=== PATIENT | female | born 1955 | race Caucasian/White ===

== ENCOUNTER 2023-04-18 12:02 | Emergency (ER) | payer MEDICARE, SELFPAY ==
[2023-04-18 12:17] VITALS: BP 145/74; PULSE 78; RESP 16; TEMP 36.9; O2SAT 98; BMI 29.2
--- NOTE | 2023-04-18 14:20 | PC.NURSE ---
red area to skin to pt's foot, band aid in place
--- NOTE | 2023-04-18 14:24 | XR_ITS ---
The [address] [address] Patient Name: DUYEN ANAYA MRN: [id number] date: 1955 Sex: F Assigned Patient Location: ER Current Patient Location: Accession/Order Number: [id number] Exam Date: 04/18/2023 14:30 Report Date: 04/18/2023 14:42 At the request of: RAMAKRISHNA GRAY Procedure: XR foot RT min 3V EXAM: XR foot RT min 3V HISTORY: puain COMPARISON: None. FINDINGS: 3 radiographs of the right foot were obtained. No acute fracture or dislocation. Moderate degenerative changes to the right foot. Small Achilles heel spur. Os peroneum. XR/XR foot RT min 3V IMPRESSION: No acute fracture or dislocation. Electronically authenticated by: SAUL MUNGUIA Date: 04/18/2023 14:42
--- NOTE | 2023-04-18 14:58 | ED_ITS ---
Documented by User: Shalini Gray 04/18/23 15:06 HPI - General Adult General Chief complaint: Skin/Abscess/Foreign Body Stated complaint: RT FOOT PAIN Time Seen by Provider: 04/18/23 14:23 Source: patient Mode of arrival: Wheelchair History of Present Illness HPI narrative: 67-year-old female presents here with a chief complaint of right foot injury. She states she accidentally kicked her foot against a piece of furniture earlier this week and now has some redness to the base of the great toe. She states she is diabetic. Concern for infection. Small area erythema noted the wound is dry. Patient has small circular area of induration measuring 1 x 2 cm. It appears he had a blister that opened the patient denies any known blister to this area. Related Data Previous Rx's Medication Instructions Recorded cephalexin 500 mg capsule 500 mg PO BID 10 days #20 caps 04/18/23 Allergies Allergy/AdvReac Type Severity Reaction Status Date / Time No Known Drug Allergies Allergy Verified 04/18/23 12:17 Review of Systems ROS Narrative All Systems are negative except as noted/marked.All systems reviewed and otherwise negative Exam Narrative Exam Narrative: Nurses note and vital signs reviewed and patient is not hypoxic. General: The patient appears well and in no apparent distress. Patient is resting comfortably on cart. Skin: Warm, dry, no pallor noted. 1x 2 cam area induration to the right great toe base consistent with abrasion that is healing, no drainage or discharge Head: Normocephalic, atraumatic Musculoskeletal:Small abrasion to the right great toe The patient has no evidence of calf tenderness, no pitting edema, symmetrical pulses noted bilaterally Neurological: A&O x4, normal speech Psychiatric: Cooperative Constitutional Vital Signs, click to edit/add: Last Vital Signs Temp 98.4 F 04/18/23 12:17 Pulse 78 04/18/23 12:17 Resp 16 04/18/23 12:17 BP 145/74 H 04/18/23 12:17 Pulse Ox 98 04/18/23 12:17 O2 Del Method Room Air 04/18/23 14:20 Course Vital Signs Vital signs: Vital Signs Temperature 98.4 F 04/18/23 12:17 Pulse Rate 78 04/18/23 12:17 Respiratory Rate 16 04/18/23 12:17 Blood Pressure 145/74 H 04/18/23 12:17 Pulse Oximetry 98 04/18/23 12:17 Oxygen Delivery Method Room Air 04/18/23 12:17 Temperature 98.4 F 04/18/23 12:17 Pulse Rate 78 04/18/23 12:17 Respiratory Rate 16 04/18/23 12:17 Blood Pressure 145/74 H 04/18/23 12:17 Pulse Oximetry 98 04/18/23 12:17 Oxygen Delivery Method Room Air 04/18/23 14:20 Medical Decision Making MDM Narrative Medical decision making narrative: She has small abrasion she wanted to be evaluated for possible infection. She is a diabetic. She was placed on Keflex. The area was cleaned here in emergency room dressing appliedd. X-ray shows no acute bony involvement the base of the great toe. Patient's told to keep covered and dry during the day and open to air at night. Medical Records Medical records reviewed: Yes I reviewed the patient's medical records Imaging Data Patient Name: DUYEN ANAYA MRN: [facility]:[id number] date: 1955 Sex: F Assigned Patient Location: ER Current Patient Location: ER Accession/Order Number: [id number] Exam Date: 04/18/2023 14:30 Report Date: 04/18/2023 14:42 At the request of: SHALINI GRAY Procedure: XR foot RT min 3V EXAM: XR foot RT min 3V HISTORY: puain COMPARISON: None. FINDINGS: 3 radiographs of the right foot were obtained. No acute fracture or dislocation. Moderate degenerative changes to the right foot. Small Achilles heel spur. Os peroneum. IMPRESSION: No acute fracture or dislocation.: Radiologist's impression: Patient Name: DUYEN ANAYA MRN: [facility]:[id number] date: 1955 Sex: F Assigned Patient Location: ER Current Patient Location: ER Accession/Order Number: [id number] Exam Date: 04/18/2023 14:30 Report Date: 04/18/2023 14:42 At the request of: SHALINI GRAY Procedure: XR foot RT min 3V EXAM: XR foot RT min 3V HISTORY: puain COMPARISON: None. FINDINGS: 3 radiographs of the right foot were obtained. No acute fracture or dislocation. Moderate degenerative changes to the right foot. Small Achilles heel spur. Os peroneum. IMPRESSION: No acute fracture or dislocation. Discharge Plan Discharge Chief Complaint: Skin/Abscess/Foreign Body Clinical Impression: Abrasion of foot Patient Disposition: Home, Self-Care Time of Disposition Decision: 14:59 Condition: Good Prescriptions / Home Meds: New cephalexin 500 mg capsule 500 mg PO BID 10 Days Qty: 20 0RF Instructions: Abrasion (ED) Stand Alone Forms: Portal Instructions Referrals: Yessica Sheffield [Primary Care Provider] - 1 week Discharge Date/Time: 04/18/23 15:10 Documented by User: Gia Ayala MD 04/18/23 18:12 HPI - General Adult General Chief complaint: Skin/Abscess/Foreign Body Stated complaint: RT FOOT PAIN Time Seen by Provider: 04/18/23 14:23 Related Data Previous Rx's Medication Instructions Recorded cephalexin 500 mg capsule 500 mg PO BID 10 days #20 caps 04/18/23 Allergies Allergy/AdvReac Type Severity Reaction Status Date / Time No Known Drug Allergies Allergy Verified 04/18/23 12:17 Exam Constitutional Vital Signs, click to edit/add: Last Vital Signs Temp 98.4 F 04/18/23 12:17 Pulse 78 04/18/23 12:17 Resp 16 04/18/23 12:17 BP 145/74 H 04/18/23 12:17 Pulse Ox 98 04/18/23 12:17 O2 Del Method Room Air 04/18/23 14:20 Course Vital Signs Vital signs: Vital Signs Temperature 98.4 F 04/18/23 12:17 Pulse Rate 78 04/18/23 12:17 Respiratory Rate 16 04/18/23 12:17 Blood Pressure 145/74 H 04/18/23 12:17 Pulse Oximetry 98 04/18/23 12:17 Oxygen Delivery Method Room Air 04/18/23 12:17 Temperature 98.4 F 04/18/23 12:17 Pulse Rate 78 04/18/23 12:17 Respiratory Rate 16 04/18/23 12:17 Blood Pressure 145/74 H 04/18/23 12:17 Pulse Oximetry 98 04/18/23 12:17 Oxygen Delivery Method Room Air 04/18/23 14:20 Medical Decision Making MDM Narrative Medical decision making narrative: She has small abrasion she wanted to be evaluated for possible infection. She is a diabetic. She was placed on Keflex. The area was cleaned here in emergency room dressing appliedd. X-ray shows no acute bony involvement the base of the great toe. Patient's told to keep covered and dry during the day and open to air at night. Attending physician attestation I have reviewed the mid-level documentation, agree with the documentation, medical decision making and treatment plan as outlined by the mid-level provider. Discharge Plan Discharge Chief Complaint: Skin/Abscess/Foreign Body Clinical Impression: Abrasion of foot Patient Disposition: Home, Self-Care Time of Disposition Decision: 14:59 Condition: Good Prescriptions / Home Meds: New cephalexin 500 mg capsule 500 mg PO BID 10 Days Qty: 20 0RF Instructions: Abrasion (ED) Stand Alone Forms: Portal Instructions Referrals: Yessica Sheffield [Primary Care Provider] - 1 week Discharge Date/Time: 04/18/23 15:10
== END 2023-04-18 15:10 | disposition home or self-care (01) ==
PROVIDERS: Emergency Provider Emergency Medicine
DX: S90.811A Abrasion, right foot, initial encounter (principal); W22.8XXA Striking against or struck by other objects, initial encounter; E11.9 Type 2 diabetes mellitus without complications
CPT/HCPCS: 73630; 99283

== ENCOUNTER 2023-05-08 07:15 | Emergency (ER) | payer MEDICARE, SELFPAY ==
[2023-05-08 07:25] VITALS: BP 150/60; PULSE 58; RESP 16; TEMP 36.8; O2SAT 97; BMI 29.3
--- NOTE | 2023-05-08 07:57 | ED_ITS ---
HPI - Extremity Injury (Lower) General Chief Complaint: Extremity Injury, Lower Stated Complaint: SHARP PAIN IN L FOOT/NUMBNESS Time Seen by Provider: 05/08/23 07:57 Source: patient Mode of arrival: Wheelchair Limitations: no limitations History of Present Illness HPI Narrative: this patient's here with her for complaint of discomfort in her left ankle. She actually does not have any history of injury. She denies any change in activity or falls. As it turns out she is a diabetic and does take insulin daily. She is under the care of both a primary care doctor and a nutritional health coach. Upon further questioning she has had repeated falls because weakness of his left leg specifically her ankle and the patient also admits to weakness of her right ankle and foot and she's had this for some time. She uses a walker. The pain that she describes her left ankle is irrespective of weightbearing or movement. She says it's a sharp lancinating pain and she also has a numbness in both of her feet. She has a sore on the top of her right foot that she's been treating herself in the family doctor's been assisting her in that process. She has not had any change in activity as noted earlier none of her other joints are painful. She is not running a fever. She's nota redness or swelling of the ankle mortise. Related Data Previous Rx's Medication Instructions Recorded cephalexin 500 mg capsule 500 mg PO BID 10 days #20 caps 04/18/23 Allergies Allergy/AdvReac Type Severity Reaction Status Date / Time No Known Drug Allergies Allergy Verified 04/18/23 12:17 Exam Narrative Exam Narrative: This document has been composed with a new electronic medical record and [employer] voice recognition system. This document may not fully inaccurately reflect the entirety of the patient encounter. Patient's awake alert appears in moderate discomfort. She states that she did take two Tylenol but it did not help at all. She is very pleasant. She appears to have aching pain in her left ankle. Problem focused examination to the lower extremity as below. The left and right leg were both examined. She has a dressing over the great toe on her right side there is no redness or swelling in that area. She has substantial weakness of her ability to dorsiflex her foot and her great toe on both sides and it is equal with no disparity. She has strong pulses in both lower extremities and good color with no evidence of vascular insufficiency. On examining her left ankle where she has most of her discomfort there is no warmth erythema or swelling. Passive range of motion does not reproduce any pain or discomfort. There is no discomfort over the Achilles mechanism or over the calf. Constitutional Vital Signs, click to edit/add: Last Vital Signs Temp 98.3 F 05/08/23 07:25 Pulse 58 L 05/08/23 07:25 Resp 16 05/08/23 07:25 BP 150/60 H 05/08/23 07:25 Pulse Ox 97 05/08/23 07:25 O2 Del Method Room Air 05/08/23 07:25 Course Vital Signs Vital signs: Vital Signs Temperature 98.3 F 05/08/23 07:25 Pulse Rate 58 L 05/08/23 07:25 Respiratory Rate 16 05/08/23 07:25 Blood Pressure 150/60 H 05/08/23 07:25 Pulse Oximetry 97 05/08/23 07:25 Oxygen Delivery Method Room Air 05/08/23 07:25 Temperature 98.3 F 05/08/23 07:25 Pulse Rate 58 L 05/08/23 07:25 Respiratory Rate 16 05/08/23 07:25 Blood Pressure 150/60 H 05/08/23 07:25 Pulse Oximetry 97 05/08/23 07:25 Oxygen Delivery Method Room Air 05/08/23 07:25 MDM - Extremity Injury (Lower) MDM Narrative Medical decision making narrative: this patient has an exacerbation of a chronic problem. There is no indication of an acute emergency medical condition. She clearly has bilateral neuropathy and is under the care of both the nutritional health coach and primary care doctor. She is given two Vicodin tablets here and will be started on a very low-dose Neurontin. It was emphasized that she should see her nutritional health coach next week as scheduled to have more definitive workup and evaluation of this what appears to be neuropathy. Again there is no evidence of vascular insufficiency or an acute neurological problem at this time. Discharge Plan Discharge Chief Complaint: Extremity Injury, Lower Clinical Impression: Diabetic autonomic neuropathy Time of Disposition Decision: 08:53 Prescriptions / Home Meds: No Action cephalexin 500 mg capsule 500 mg PO BID 10 Days Qty: 20 0RF Additional Instructions: Vicodin/Neurontin/C year diabetic doctor next week for ongoing chronic manageme nt Stand Alone Forms: Portal Instructions Referrals: Yessica Sheffield [Primary Care Provider] - 1 week
--- NOTE | 2023-05-08 08:12 | XR_ITS ---
The [address] [address] Patient Name: DUYEN ANAYA MRN: [id number] date: 1955 Sex: F Assigned Patient Location: ER Current Patient Location: ED.MAIN Accession/Order Number: [id number] Exam Date: 05/08/2023 08:25 Report Date: 05/08/2023 08:46 At the request of: KASHMIR WILBURN Procedure: XR ankle LT min 3V EXAM: XR ankle LT min 3V HISTORY: pain COMPARISON: None. TECHNIQUE: 3 view left ankle. FINDINGS: No fracture or dislocation left ankle. No significant soft tissue swelling. No significant degenerative change. XR/XR ankle LT min 3V IMPRESSION: No acute process left ankle. Electronically authenticated by: ENRIQUE MUNOZ Date: 05/08/2023 08:46
--- NOTE | 2023-05-08 08:12 | XR_ITS ---
The [address] [address] Patient Name: DUYEN ANAYA MRN: [id number] date: 1955 Sex: F Assigned Patient Location: ER Current Patient Location: ER Accession/Order Number: [id number] Exam Date: 05/08/2023 08:25 Report Date: 05/08/2023 08:48 At the request of: KASHMIR WILBURN Procedure: XR foot LT min 3V EXAM: XR foot LT min 3V HISTORY: pain COMPARISON: None. TECHNIQUE: 3 views left foot. FINDINGS: Minimally displaced recent appearing fracture at the fifth proximal phalanx junction base and shaft medially. Overlying edema. Slight chronic appearing deformity at the fifth metatarsal neck. Remainder of the left foot is intact. Mild to moderate degenerative change of the great toe MTP joint. At least mild degenerative change of the midfoot. Small plantar calcaneal enthesophyte. XR/XR foot LT min 3V IMPRESSION: Recent left fifth proximal phalanx minimally displaced fracture. Electronically authenticated by: ENRIQUE MUNOZ Date: 05/08/2023 08:48
== END 2023-05-08 09:13 | disposition home or self-care (01) ==
LOC: ER 08:31
PROVIDERS: Emergency Provider Emergency Medicine Emergency Medical Services
DX: E11.43 Type 2 diabetes mellitus with diabetic autonomic (poly)neuropathy (principal)
CPT/HCPCS: 73610; 73630; 99284

== ENCOUNTER 2023-06-28 16:51 | Emergency (ER) | payer MEDICARE, SELFPAY ==
[2023-06-28 16:56] VITALS: BP 198/102; PULSE 72; RESP 20; TEMP 37.6; O2SAT 98; BMI 28.7
[2023-06-28 17:06] LABS: Glucometer 414 mg/dL (74-106)
--- NOTE | 2023-06-28 17:32 | ED.GENADUL1 ---
HPI - General Adult General Chief complaint: Fall Stated complaint: Hyperglycemia Time Seen by Provider: 06/28/23 16:56 Source: patient and family Mode of arrival: Wheelchair Limitations: no limitations History of Present Illness HPI narrative: this patient's here by paramedics for evaluation after a fall. I treated this patient before, she is poorly controlled diabetic who has peripheral neuropathy. She admits that she doesn't always use her walker. She was at her home today and was going to lay down and she stumbled and fell striking the left side of her head and ear onto the headboard of the bed. After doing that then she fell down to the ground and hit her bottom. This is happened to her before not taking care of her. She doesn't always use a walker as I noted. She had no loss of consciousness she is a good historian she is pleasant she said her hemoglobin A1c's R in the eleven range. She admits to eating a lot of bad sweets. She did take her insulin today after all this occurred. Her sugar here is four fourteen. Her vital signs are noted blood pressure was low but up we will recheck that. She actually says she has no injury they just want to get her checked out. She did not have any bleeding or goose egg swelling or hematoma. She has no pain in her neck. She has no paresis paresthesias tingling or numbness. Related Data Home Medications Medication Instructions Recorded Confirmed gabapentin 900 mg tablet,extended 900 mg PO QPM 05/08/23 06/28/23 release 24 hr hydrocodone 5 mg-acetaminophen 325 1 tab PO Q6H 05/08/23 06/28/23 mg tablet albuterol sulfate 90 mcg/actuation 2 puff inhalation Q4H PRN 06/28/23 06/28/23 aerosol inhaler shortness of breath or wheezing atorvastatin 80 mg tablet 80 mg PO DAILY 06/28/23 06/28/23 bupropion HCl 150 mg tablet,12 hr 150 mg PO DAILY 06/28/23 06/28/23 sustained-release buspirone 15 mg tablet 15 mg PO DAILY 06/28/23 06/28/23 dapagliflozin propanediol 10 mg 10 mg PO DAILY 06/28/23 06/28/23 tablet (Farxiga) fluoxetine 40 mg capsule 40 mg PO DAILY 06/28/23 06/28/23 insulin aspart U-100 100 unit/mL 10 unit subcut .every meal 06/28/23 06/28/23 (3 mL) subcutaneous pen (Novolog FlexPen U-100 Insulin aspart) insulin glargine 100 unit/mL (3 30 unit subcut BEDTIME 06/28/23 06/28/23 mL) subcutaneous pen (Lantus Solostar U-100 Insulin) isosorbide mononitrate 30 mg 30 mg PO DAILY 06/28/23 06/28/23 tablet,extended release 24 hr lisinopril 10 mg tablet 10 mg PO DAILY 06/28/23 06/28/23 metoprolol succinate 50 mg 50 mg PO DAILY 06/28/23 06/28/23 tablet,extended release 24 hr nitroglycerin 0.4 mg sublingual 0.4 mg sublingual Q5M PRN chest 06/28/23 06/28/23 tablet pain pantoprazole 40 mg tablet,delayed 40 mg PO DAILY 06/28/23 06/28/23 release prazosin 2 mg capsule 2 mg PO DAILY 06/28/23 06/28/23 Allergies Allergy/AdvReac Type Severity Reaction Status Date / Time No Known Drug Allergies Allergy Verified 04/18/23 12:17 [facility] Social History Smoking status: Former smoker Exam Narrative Exam Narrative: awake alert oriented ?3. Pleasant her male lead software development engineer is here with her confirming all this information. Overall HEENT shows no evidence his CSF otorrhea or rhinorrhea there is no hemotympanum. The neck is nontender to palpation and she has complete unrestricted nontender range of motion in the neck area. Her strength in the upper or lower limbs is normal and she has complete movement and range of motion of her arms bilaterally. She has no tenderness over the rib area. Her heart sounds are normal with no rubs or murmurs. Respiratory she has no cough congestion wheezing or respiratory distress her pulse oximetry is normal. I asked her if she felt that she heard anything in these x-rays and she said no that she feels fine. Constitutional Vital Signs, click to edit/add: Last Vital Signs Temp 99.6 F 06/28/23 16:56 Pulse 72 06/28/23 16:56 Resp 20 06/28/23 16:56 BP 198/102 H 06/28/23 16:56 Pulse Ox 98 06/28/23 16:56 O2 Del Method Room Air 10/16/23 16:56 Course Vital Signs Vital signs: Vital Signs Temperature 99.6 F 06/28/23 16:56 Pulse Rate 72 06/28/23 16:56 Respiratory Rate 20 06/28/23 16:56 Blood Pressure 198/102 H 06/28/23 16:56 Pulse Oximetry 98 06/28/23 16:56 Oxygen Delivery Method Room Air 06/28/23 16:56 Temperature 99.6 F 06/28/23 16:56 Pulse Rate 72 06/28/23 16:56 Respiratory Rate 20 06/28/23 16:56 Blood Pressure 198/102 H 06/28/23 16:56 Pulse Oximetry 98 06/28/23 16:56 Oxygen Delivery Method Room Air 06/28/23 16:56 Medical Decision Making MDM Narrative Medical decision making narrative: this patient has peripheral neuropathy, history of falls and doesn't consistently use her walker. I encouraged her to change her lifestyle habits so as to Sathya falls which may lead to a hip fracture. She ate a good meal tonight she is alright taken her to insulins I don't feel she needs further testing or evaluation at this time she is with a reliable caregiver. Lab Data Labs: Lab Results 06/28/23 Range/Units 17:05 POC Glucose 414 H (74-106) mg/dL Discharge Plan Discharge Chief Complaint: Fall Clinical Impression: Accident due to mechanical fall without injury Patient Disposition: Home, Self-Care Time of Disposition Decision: 17:36 Prescriptions / Home Meds: No Action hydrocodone-acetaminophen 5-325 mg tablet 1 tab PO Q6H gabapentin 900 mg tablet extended release 24 hr 900 mg PO QPM albuterol sulfate 90 mcg/actuation HFA aerosol inhaler 2 puff INHALATION Q4H PRN (Reason: shortness of breath or wheezing) atorvastatin 80 mg tablet 80 mg PO DAILY bupropion HCl 150 mg tablet sustained-release 12 hr 150 mg PO DAILY buspirone 15 mg tablet 15 mg PO DAILY Farxiga 10 mg tablet 10 mg PO DAILY fluoxetine 40 mg capsule 40 mg PO DAILY insulin glargine [Lantus Solostar U-100 Insulin] 100 unit/mL (3 mL) insulin pen 30 unit SUBCUT BEDTIME insulin aspart U-100 [Novolog FlexPen U-100 Insulin] 100 unit/mL (3 mL) insulin pen 10 unit SUBCUT .every meal isosorbide mononitrate 30 mg tablet extended release 24 hr 30 mg PO DAILY lisinopril 10 mg tablet 10 mg PO DAILY metoprolol succinate 50 mg tablet extended release 24 hr 50 mg PO DAILY nitroglycerin 0.4 mg tablet, sublingual 0.4 mg sublingual Q5M PRN (Reason: chest pain) pantoprazole 40 mg tablet,delayed release (DR/EC) 40 mg PO DAILY prazosin 2 mg capsule 2 mg PO DAILY Stand Alone Forms: Portal Instructions Referrals: Yessica Sheffield [Primary Care Provider] - 1 week
[2023-06-28 17:51] VITALS: BP 166/84
--- NOTE | 2023-06-28 21:05 | ECG_ITS ---
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
== END 2023-06-28 17:53 | disposition home or self-care (01) ==
PROVIDERS: Emergency Provider Emergency Medicine Emergency Medical Services
DX: Z04.3 Encounter for examination and observation following other accident (principal); E11.42 Type 2 diabetes mellitus with diabetic polyneuropathy; Z79.899 Other long term (current) drug therapy; Z79.4 Long term (current) use of insulin; Z87.891 Personal history of nicotine dependence
CPT/HCPCS: 36415; 93005; 99282

== ENCOUNTER 2023-07-30 12:34 | Emergency (ER) | payer MEDICARE, SELFPAY ==
[2023-07-30] VITALS (28 sets, daily range): BP systolic 154–157; BP diastolic 87–95; PULSE 47–87; RESP 13–26; TEMP 36.3; O2SAT 93–99; BMI 34.5
--- NOTE | 2023-07-30 13:08 | ECG_ITS ---
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
[2023-07-30] MEDS: MECLIZINE HCL 12.5 MG TABLET 25 MG PO (13:20)
[2023-07-30] MEDS: 0.9 % SODIUM CHLORIDE 1,000 ML 999 ML IV (13:21)
[2023-07-30] MEDS: DIAZEPAM 5 MG/ML - 2 ML INJ SYRINGE 2 MG IV (13:21)
[2023-07-30 13:22] LABS: Basophils Absolute Auto 0.1 10^3/uL (0.0-0.1); Basophils Percent Auto 0.6 % (0.2-2.0); Eosinophils Absolute Auto 0.3 10^3/uL (0.0-0.7); Eosinophils Percent Auto 3.9 % (0.9-7.0); Hematocrit 37.5 % (36.0-48.0); Hemoglobin 12.4 g/dL (12.0-16.0); Immature Granulocytes Abs Auto 0.03 10^3/uL (0.00-0.03); Immature Granulocytes Pct Auto 0.4 % (0.0-0.5); Lymphocytes Percent Auto 24.2 % (20.5-60.0); Mean Corpuscular HGB Conc 33.1 g/dL (29.9-35.2); Mean Corpuscular Hemoglobin 27.7 pg (26.7-34.0); Mean Corpuscular Volume 83.7 fL (81.0-99.0); Mean Platelet Volume 10.2 fL (9.5-13.5); Monocytes Absolute Auto 0.5 10^3/uL (0.3-0.8); Monocytes Percent Auto 5.9 % (1.7-12.0); Neutrophils Absolute Auto 5.3 10^3/uL (1.4-6.5); Platelet Count 311 10^3/uL (150-450); Red Blood Count 4.48 10^6/uL (4.20-5.40); Red Cell Distribution Width 13.3 % (11.0-15.0); White Blood Count 8.1 10^3/uL (4.0-11.0)
[2023-07-30] MEDS: METHYLPREDNISOLONE SOD SUCC PF 125 MG/2 ML VIAL IVP (13:27)
[2023-07-30 13:37] LABS: Anion Gap 16.9; BUN Creatinine Ratio 27.6; Calcium 9.1 mg/dL (8.5-10.1); Chloride 99 mmol/L (98-107); Estimated GFR (African America >60 (>=60); Estimated GFR (Non-African Ame 56 (>=60); Glucose 323 mg/dL (74-106); Potassium 4.9 mmol/L (3.5-5.1); Sodium 135 mmol/L (136-145)
[2023-07-30] MEDS: ONDANSETRON PF 4 MG/2 ML VIAL IV (13:40)
--- NOTE | 2023-07-30 13:43 | ED.DIZZY1 ---
HPI - Dizziness General Chief Complaint: Dizziness Stated Complaint: general weakness Time Seen by Provider: 07/30/23 12:41 Source: patient Mode of arrival: ambulance Limitations: no limitations History of Present Illness HPI Narrative: Patient suddenly experienced an intense sensation of spinning and felt shaky. She called 911 and was brought in by EMS. She denied any headache, ringing in the ears or visual changes. She did admit to nasal congestion and mild cough that began a few days ago. Her left ear felt full . No chest pain or shortness of breath. No palpitations, No prior history of vertigo. Change in body position and turning her head makes the sensation worse. Related Data Home Medications Medication Instructions Recorded Confirmed gabapentin 900 mg tablet,extended 900 mg PO QPM 05/08/23 06/28/23 release 24 hr hydrocodone 5 mg-acetaminophen 325 1 tab PO Q6H 05/08/23 06/28/23 mg tablet albuterol sulfate 90 mcg/actuation 2 puff inhalation Q4H PRN 06/28/23 06/28/23 aerosol inhaler shortness of breath or wheezing atorvastatin 80 mg tablet 80 mg PO DAILY 06/28/23 06/28/23 bupropion HCl 150 mg tablet,12 hr 150 mg PO DAILY 06/28/23 06/28/23 sustained-release buspirone 15 mg tablet 15 mg PO DAILY 06/28/23 06/28/23 dapagliflozin propanediol 10 mg 10 mg PO DAILY 06/28/23 06/28/23 tablet (Farxiga) fluoxetine 40 mg capsule 40 mg PO DAILY 06/28/23 06/28/23 insulin aspart U-100 100 unit/mL 10 unit subcut .every meal 06/28/23 06/28/23 (3 mL) subcutaneous pen (Novolog FlexPen U-100 Insulin aspart) insulin glargine 100 unit/mL (3 30 unit subcut BEDTIME 06/28/23 06/28/23 mL) subcutaneous pen (Lantus Solostar U-100 Insulin) isosorbide mononitrate 30 mg 30 mg PO DAILY 06/28/23 06/28/23 tablet,extended release 24 hr lisinopril 10 mg tablet 10 mg PO DAILY 06/28/23 06/28/23 metoprolol succinate 50 mg 50 mg PO DAILY 10/16/23 10/16/23 tablet,extended release 24 hr nitroglycerin 0.4 mg sublingual 0.4 mg sublingual Q5M PRN chest 06/28/23 06/28/23 tablet pain pantoprazole 40 mg tablet,delayed 40 mg PO DAILY 06/28/23 06/28/23 release prazosin 2 mg capsule 2 mg PO DAILY 06/28/23 06/28/23 Previous Rx's Medication Instructions Recorded meclizine 25 mg tablet 25 mg PO TID PRN dizziness #30 tabs 07/30/23 ondansetron 4 mg disintegrating 4 mg PO Q6H PRN nausea and 07/30/23 tablet vomiting #20 tabs Allergies Allergy/AdvReac Type Severity Reaction Status Date / Time No Known Drug Allergies Allergy Verified 04/18/23 12:17 PFSH PFSH Social History Smoking status: Never smoker Exam Narrative Exam Narrative: Nurses notes and vital signs reviewed and patient is not hypoxic. afebrile General: Anxious. Skin: Warm, dry, no pallor noted. No rash. Head: Normocephalic, atraumatic. Neck: Supple, non-tender. no carotid bruits. No meningismus. Eye: Pupils are equal, round and EOMI. No scleral icterus. no nystagmus. Ears, Nose, Mouth, and Throat: TM are clear, mild nasal mucosal hypertrophy. Oral mucosa is moist, no posterior oropharynx erythema, uvula is mid-line Cardiovascular: Regular Rate and Rhythm without murmur, gallop or rub. Respiratory: No accessory muscle use or respiratory distress. Lungs are clear to auscultation, no wheezing, rales or rhonchi Musculoskeletal: normal ROM, no calf or popliteal tenderness, no lower extremity edema/swelling GI: Abdomen is soft, non-distended. Normal bowel sounds. No tenderness to palpation. No rebound, guarding, or rigidity noted. Neurological: A&O x4. No cranial nerve dysfunction observed. No truncal ataxia. Moves all extremities. Sensation intact. Psychiatric: Cooperative and interactive. Normal mood and affect. Constitutional Vital Signs, click to edit/add: Last Vital Signs Temp 97.4 F L 07/30/23 12:40 Pulse 62 07/30/23 15:44 Resp 23 07/30/23 15:44 BP 154/90 H 07/30/23 15:30 Pulse Ox 96 07/30/23 15:30 O2 Del Method Room Air 07/30/23 12:40 Course Vital Signs Vital signs: Vital Signs Pulse Rate 57 L 07/30/23 12:38 Respiratory Rate 21 07/30/23 12:38 Pulse Oximetry 97 07/30/23 12:38 Temperature 97.4 F L 07/30/23 12:40 Pulse Rate 62 07/30/23 15:44 Respiratory Rate 23 07/30/23 15:44 Blood Pressure 154/90 H 07/30/23 15:30 Pulse Oximetry 96 07/30/23 15:30 Oxygen Delivery Method Room Air 07/30/23 12:40 MDM - Dizziness MDM Narrative Medical decision making narrative: Patient was placed on engine monitor and EKG obtained. Blood drawn and sent for evaluation. Patient given IV Valilum, IV SOlumedrol and oral meclizine. She vomited shortly after receiving the meds and then was given IV Zofran. CBC normal. EKG without acute A[place]UST[place]. Other tests including head CT unremarkable. Patient discharged home with prescriptions for Zofran and Meclizine. PCP follow up recommended. Lab Data Attestation: I reviewed the patient's lab results. Labs: Lab Results 07/30/23 07/30/23 Range/Units 12:55 13:10 WBC 8.1 (4.0-11.0) 10^3/uL RBC 4.48 (4.20-5.40) 10^6/uL Hgb 12.4 (12.0-16.0) g/dL Hct 37.5 (36.0-48.0) % MCV 83.7 (81.0-99.0) fL MCH 27.7 (26.7-34.0) pg MCHC 33.1 (29.9-35.2) g/dL RDW 13.3 (11.0-15.0) % Plt Count 311 (150-450) 10^3/uL MPV 10.2 (9.5-13.5) fL Neut % (Auto) 65.0 (43.0-75.0) % Lymph % (Auto) 24.2 (20.5-60.0) % Storey % (Auto) 5.9 (1.7-12.0) % Eos % (Auto) 3.9 (0.9-7.0) % Baso % (Auto) 0.6 (0.2-2.0) % Neut # (Auto) 5.3 (1.4-6.5) 10^3/uL Lymph # (Auto) 2.0 (1.2-3.8) 10^3/uL Storey # (Auto) 0.5 (0.3-0.8) 10^3/uL Eos # (Auto) 0.3 (0.0-0.7) 10^3/uL Baso # (Auto) 0.1 (0.0-0.1) 10^3/uL Abs Immat Gran (auto) 0.03 (0.00-0.03) 10^3/uL Imm/Tot Granulo (auto) 0.4 (0.0-0.5) % Sodium 135 L (136-145) mmol/L Potassium 4.9 (3.5-5.1) mmol/L Chloride 99 (98-107) mmol/L Carbon Dioxide 24.0 (21.0-32.0) mmol/L Anion Gap 16.9 BUN 27.0 H (7.0-18.0) mg/dL Creatinine 0.98 (0.55-1.02) mg/dL Est GFR ( Amer) >60 (>=60) Est GFR (Non-Af Amer) 56 L (>=60) BUN/Creatinine Ratio 27.6 Glucose 323 H (74-106) mg/dL Calcium 9.1 (8.5-10.1) mg/dL Urine Color Lt. yellow (YELLOW) Urine Clarity Clear (CLEAR) Urine pH 6.5 (5.0-9.0) Ur Specific Ambler 1.010 (1.005-1.025) Urine Protein Negative (NEG/TRACE) mg/dL Urine Glucose (UA) >=1000 A (NEGATIVE) mg/dL Urine Ketones 15 A (NEGATIVE) mg/dL Urine Occult Blood Trace-i (NEGATIVE) Urine Nitrite Negative (NEGATIVE) Urine Bilirubin Negative (NEGATIVE) Urine Urobilinogen 0.2 (0.2-1.0) EU/dL Ur Leukocyte Esterase Trace A (NEGATIVE) Urine RBC 0-2 (0-2) #/HPF Urine WBC 2-5 A (NONE SEEN) #/HPF Ur Squamous Epith Cells Few A (NONE/RARE) #/LPF Urine Crystals None seen (None Seen) #/HPF Urine Bacteria Large A (NONE SEEN) #/HPF Urine Casts None seen (NONE SEEN) #/LPF Urine Mucus None seen (NONE SEEN) Ur Culture Indicated? Yes Imaging Data CT scan - head: Attestation: I have reviewed the pertinent imaging results. Radiologist's impression: Patient Name: DUYEN ANAYA MRN: [facility]:[id number] date: 1955 Sex: F Assigned Patient Location: ER Current Patient Location: ER Accession/Order Number: [id number] Exam Date: 07/30/2023 15:38 Report Date: 07/30/2023 15:54 At the request of: CORY ALMONTE Procedure: CT head/brain wo con EXAM: CT head/brain wo con HISTORY: dizziness COMPARISON: 05/07/2022 TECHNIQUE: Axial CT images were obtained of the head without intravenous contrast. Multiplanar reconstructions were performed. FINDINGS: No acute intracranial hemorrhage. No acute loss of sharp/white differentiation. There are mild to moderate patchy areas of deep white matter hypoattenuation, similar to the prior exam. The ventricles and sulci are normal in appearance. The osseous structures are unremarkable. No soft tissue abnormality identified. The paranasal sinuses and mastoid air cells are clear. IMPRESSION: 1. No acute intracranial abnormality. 2. Moderate chronic deep white matter disease, which is nonspecific, but possibly due to chronic ischemic microvascular disease. Electronically authenticated by: KRISTOPHER BLANKENSHIP Date: 07/30/2023 15:54 ECG Data Attestation: I personally reviewed and interpreted this ECG as follows: Interpretation: EKG interpretation: Emergency Department physician interpretation. Normal sinus rhythm at 56bpm. Left axis, normal intervals and no ST segment elevation or depression. Discharge Plan Discharge Chief Complaint: Dizziness Clinical Impression: Benign paroxysmal positional vertigo Patient Disposition: Home, Self-Care Time of Disposition Decision: 16:15 Prescriptions / Home Meds: New ondansetron 4 mg tablet,disintegrating 4 mg PO Q6H PRN (Reason: nausea and vomiting) Qty: 20 0RF meclizine 25 mg tablet 25 mg PO TID PRN (Reason: dizziness) Qty: 30 0RF No Action hydrocodone-acetaminophen 5-325 mg tablet 1 tab PO Q6H gabapentin 900 mg tablet extended release 24 hr 900 mg PO QPM albuterol sulfate 90 mcg/actuation HFA aerosol inhaler 2 puff INHALATION Q4H PRN (Reason: shortness of breath or wheezing) atorvastatin 80 mg tablet 80 mg PO DAILY bupropion HCl 150 mg tablet sustained-release 12 hr 150 mg PO DAILY buspirone 15 mg tablet 15 mg PO DAILY Farxiga 10 mg tablet 10 mg PO DAILY fluoxetine 40 mg capsule 40 mg PO DAILY insulin glargine [Lantus Solostar U-100 Insulin] 100 unit/mL (3 mL) insulin pen 30 unit SUBCUT BEDTIME insulin aspart U-100 [Novolog FlexPen U-100 Insulin] 100 unit/mL (3 mL) insulin pen 10 unit SUBCUT .every meal isosorbide mononitrate 30 mg tablet extended release 24 hr 30 mg PO DAILY lisinopril 10 mg tablet 10 mg PO DAILY metoprolol succinate 50 mg tablet extended release 24 hr 50 mg PO DAILY nitroglycerin 0.4 mg tablet, sublingual 0.4 mg sublingual Q5M PRN (Reason: chest pain) pantoprazole 40 mg tablet,delayed release (DR/EC) 40 mg PO DAILY prazosin 2 mg capsule 2 mg PO DAILY Instructions: Benign Paroxysmal Positional Vertigo (ED) Stand Alone Forms: Portal Instructions Referrals: Yessica Sheffield [Primary Care Provider] - 1 week
--- NOTE | 2023-07-30 15:00 | CT_ITS ---
The [address] [address] Patient Name: DUYEN ANAYA MRN: [id number] date: 1955 Sex: F Assigned Patient Location: ER Current Patient Location: ER Accession/Order Number: [id number] Exam Date: 07/30/2023 15:38 Report Date: 07/30/2023 15:54 At the request of: CORY ALMONTE Procedure: CT head/brain wo con EXAM: CT head/brain wo con HISTORY: dizziness COMPARISON: 05/07/2022 TECHNIQUE: Axial CT images were obtained of the head without intravenous contrast. Multiplanar reconstructions were performed. FINDINGS: No acute intracranial hemorrhage. No acute loss of sharp/white differentiation. There are mild to moderate patchy areas of deep white matter hypoattenuation, similar to the prior exam. The ventricles and sulci are normal in appearance. The osseous structures are unremarkable. No soft tissue abnormality identified. The paranasal sinuses and mastoid air cells are clear. CT/CT head/brain wo con IMPRESSION: 1. No acute intracranial abnormality. 2. Moderate chronic deep white matter disease, which is nonspecific, but possibly due to chronic ischemic microvascular disease. Electronically authenticated by: KRISTOPHER BLANKENSHIP Date: 07/30/2023 15:54
[2023-07-30 15:54] LABS: Bilirubin Urine NEGATIVE (NEGATIVE); Blood Urine TRACE-I (NEGATIVE); Clarity Urine CLEAR (CLEAR); Color Urine LT. YELLOW (YELLOW); Glucose Urine UA >=1000 mg/dL (NEGATIVE); Ketones Urine 15 mg/dL (NEGATIVE); Leukocyte Esterase Urine TRACE (NEGATIVE); Nitrite Urine NEGATIVE (NEGATIVE); Protein Urine NEGATIVE (NEG/TRACE); Urine Microscopic Indicated YES; Urobilinogen Urine 0.2 EU/dL (0.2-1.0); pH Urine 6.5 (5.0-9.0)
[2023-07-30 16:13] LABS: Bacteria Urine LARGE #/HPF (NONE SEEN); Cast Seen? NONE SEEN #/LPF (NONE SEEN); Crystals Seen? None Seen #/HPF (None Seen); Mucus Urine NONE SEEN (NONE SEEN); RBC Urine 0-2 #/HPF (0-2); Squamous Epithelial Cell Urine FEW #/LPF (NONE/RARE); Urine Culture Indicated YES
== END 2023-07-30 17:07 | disposition home or self-care (01) ==
PROVIDERS: Emergency Provider Emergency Medicine
DX: H81.10 Benign paroxysmal vertigo, unspecified ear (principal); Z79.899 Other long term (current) drug therapy; Z79.4 Long term (current) use of insulin
CPT/HCPCS: 36415; 70450; 80048; 81001; 85025; 87086; 87186; 93005; 96361; 96374; 96375; 99285; J2930

== ENCOUNTER 2023-08-13 16:26 | Emergency (ER) | payer MEDICARE, SELFPAY ==
[2023-08-13 16:29] VITALS: BP 180/91; PULSE 71; RESP 18; TEMP 36.6; O2SAT 97; BMI 29.2
[2023-08-13 16:37] LABS: Glucometer 366 mg/dL (74-106)
--- NOTE | 2023-08-13 16:38 | ED_ITS ---
HPI - Abdominal Pain General Chief Complaint: Abdominal Pain Stated Complaint: ABDOMINAL PAIN Time Seen by Provider: 08/13/23 16:31 Source: patient Mode of arrival: ambulance Limitations: no limitations History of Present Illness HPI narrative: Patient with little to no stool passage for the last 5 days presents with left sided abdominal pain. She vomited yesterday but then was able to eat and drink today. Passing gas but no stool. She denied any urinary symptoms. No flank pain or headache. She did not take anything over the counter for her symptoms. Related Data Home Medications Medication Instructions Recorded Confirmed gabapentin 900 mg tablet,extended 900 mg PO QPM 05/08/23 06/28/23 release 24 hr hydrocodone 5 mg-acetaminophen 325 1 tab PO Q6H 05/08/23 06/28/23 mg tablet albuterol sulfate 90 mcg/actuation 2 puff inhalation Q4H PRN 06/28/23 06/28/23 aerosol inhaler shortness of breath or wheezing atorvastatin 80 mg tablet 80 mg PO DAILY 06/28/23 06/28/23 bupropion HCl 150 mg tablet,12 hr 150 mg PO DAILY 06/28/23 06/28/23 sustained-release buspirone 15 mg tablet 15 mg PO DAILY 06/28/23 06/28/23 dapagliflozin propanediol 10 mg 10 mg PO DAILY 06/28/23 06/28/23 tablet (Farxiga) fluoxetine 40 mg capsule 40 mg PO DAILY 06/28/23 06/28/23 insulin aspart U-100 100 unit/mL 10 unit subcut .every meal 06/28/23 06/28/23 (3 mL) subcutaneous pen (Novolog FlexPen U-100 Insulin aspart) insulin glargine 100 unit/mL (3 30 unit subcut BEDTIME 06/28/23 06/28/23 mL) subcutaneous pen (Lantus Solostar U-100 Insulin) isosorbide mononitrate 30 mg 30 mg PO DAILY 06/28/23 06/28/23 tablet,extended release 24 hr lisinopril 10 mg tablet 10 mg PO DAILY 06/28/23 06/28/23 metoprolol succinate 50 mg 50 mg PO DAILY 06/28/23 06/28/23 tablet,extended release 24 hr nitroglycerin 0.4 mg sublingual 0.4 mg sublingual Q5M PRN chest 06/28/23 06/28/23 tablet pain pantoprazole 40 mg tablet,delayed 40 mg PO DAILY 06/28/23 06/28/23 release prazosin 2 mg capsule 2 mg PO DAILY 06/28/23 06/28/23 Previous Rx's Medication Instructions Recorded meclizine 25 mg tablet 25 mg PO TID PRN dizziness #30 tabs 07/30/23 ondansetron 4 mg disintegrating 4 mg PO Q6H PRN nausea and 07/30/23 tablet vomiting #20 tabs Allergies Allergy/AdvReac Type Severity Reaction Status Date / Time No Known Drug Allergies Allergy Verified 04/18/23 12:17 PFSH PFSH Social History Smoking status: Never smoker Exam Narrative Exam Narrative: Nurses notes and vital signs reviewed and patient is not hypoxic. afebrile General: Well-appearing and in no apparent distress. Skin: Warm, dry, no pallor noted. No rash. Eye: Pupils are equal, round and EOMI. No scleral icterus. Ears, Nose, Mouth, and Throat: Oral mucosa is moist Cardiovascular: Regular Rate and Rhythm without murmur, gallop or rub. Respiratory: No accessory muscle use or respiratory distress. Lungs are clear to auscultation, no wheezing, rales or rhonchi Back: No CVA tenderness Musculoskeletal: normal ROM GI: Abdomen is soft, non-distended. Normal bowel sounds. No masses appreciated. Left sided tenderness to palpation. No rebound, guarding, or rigidity noted. Neurological: A&O x4. No cranial nerve dysfunction observed. No truncal atax ia. Moves all extremities. Sensation intact. Psychiatric: Cooperative and interactive. Normal mood and affect. Constitutional Vital Signs, click to edit/add: Last Vital Signs Temp 97.8 F 08/13/23 16:29 Pulse 71 08/13/23 16:29 Resp 18 08/13/23 16:29 BP 180/91 H 08/13/23 16:29 Pulse Ox 97 08/13/23 16:29 O2 Del Method Room Air 08/13/23 17:11 Course Vital Signs Vital signs: Vital Signs Temperature 97.8 F 08/13/23 16:29 Pulse Rate 71 08/13/23 16:29 Respiratory Rate 18 08/13/23 16:29 Blood Pressure 180/91 H 08/13/23 16:29 Pulse Oximetry 97 08/13/23 16:29 Oxygen Delivery Method Room Air 08/13/23 16:29 Temperature 97.8 F 08/13/23 16:29 Pulse Rate 71 08/13/23 16:29 Respiratory Rate 18 08/13/23 16:29 Blood Pressure 180/91 H 08/13/23 16:29 Pulse Oximetry 97 08/13/23 16:29 Oxygen Delivery Method Room Air 08/13/23 17:11 MDM - Abdominal Pain MDM Narrative Medical decision making narrative: the patient was ordered to undergo CT scanning of the abdomen pelvis with oral contrast only. She is a diabetic. Bedside glucose was 357. Patient received 1L NS IVF bolus. WBC 12k with left shift. CMP notable for elevated Glucose at 322 and elevated BUN and Cr. LFTs were negative. Patient signed out with CT pending - Dr Alcaraz will follow and determine dispo for the patient. Lab Data Attestation: I reviewed the patient's lab results. Labs: Lab Results 08/13/23 08/13/23 08/13/23 Range/Units 16:35 16:53 17:26 WBC 12.4 H (4.0-11.0) 10^3/uL RBC 3.71 L (4.20-5.40) 10^6/uL Hgb 10.1 L (12.0-16.0) g/dL Hct 31.9 L (36.0-48.0) % MCV 86.0 (81.0-99.0) fL MCH 27.2 (26.7-34.0) pg MCHC 31.7 (29.9-35.2) g/dL RDW 13.3 (11.0-15.0) % Plt Count 360 (150-450) 10^3/uL MPV 9.5 (9.5-13.5) fL Neut % (Auto) 79.0 H (43.0-75.0) % Lymph % (Auto) 12.1 L (20.5-60.0) % Thayer % (Auto) 5.8 (1.7-12.0) % Eos % (Auto) 2.4 (0.9-7.0) % Baso % (Auto) 0.3 (0.2-2.0) % Neut # (Auto) 9.8 H (1.4-6.5) 10^3/uL Lymph # (Auto) 1.5 (1.2-3.8) 10^3/uL Thayer # (Auto) 0.7 (0.3-0.8) 10^3/uL Eos # (Auto) 0.3 (0.0-0.7) 10^3/uL Baso # (Auto) 0.0 (0.0-0.1) 10^3/uL Abs Immat Gran (auto) 0.05 H (0.00-0.03) 10^3/uL Imm/Tot Granulo (auto) 0.4 (0.0-0.5) % Sodium 134 L (136-145) mmol/L Potassium 4.0 (3.5-5.1) mmol/L Chloride 99 (98-107) mmol/L Carbon Dioxide 25.0 (21.0-32.0) mmol/L Anion Gap 14.0 BUN 24.0 H (7.0-18.0) mg/dL Creatinine 1.24 H (0.55-1.02) mg/dL Est GFR ( Amer) 52 L (>=60) Est GFR (Non-Af Amer) 43 L (>=60) BUN/Creatinine Ratio 19.4 Glucose 322 H (74-106) mg/dL Calcium 9.1 (8.5-10.1) mg/dL Total Bilirubin 0.2 (0.2-1.0) mg/dL AST 7 L (15-37) U/L ALT 10 L (14-59) U/L Alkaline Phosphatase 99 (46-116) U/L Total Protein 7.2 (6.4-8.2) g/dL Albumin 2.7 L (3.4-5.0) g/dL Globulin 4.5 g/dL Albumin/Globulin Ratio 0.6 POC Glucose 366 H 259 H (74-106) mg/dL Discharge Plan Discharge Chief Complaint: Abdominal Pain Patient Disposition: Still a Patient Prescriptions / Home Meds: No Action hydrocodone-acetaminophen 5-325 mg tablet 1 tab PO Q6H gabapentin 900 mg tablet extended release 24 hr 900 mg PO QPM albuterol sulfate 90 mcg/actuation HFA aerosol inhaler 2 puff INHALATION Q4H PRN (Reason: shortness of breath or wheezing) atorvastatin 80 mg tablet 80 mg PO DAILY bupropion HCl 150 mg tablet sustained-release 12 hr 150 mg PO DAILY buspirone 15 mg tablet 15 mg PO DAILY Farxiga 10 mg tablet 10 mg PO DAILY fluoxetine 40 mg capsule 40 mg PO DAILY insulin glargine [Lantus Solostar U-100 Insulin] 100 unit/mL (3 mL) insulin pen 30 unit SUBCUT BEDTIME insulin aspart U-100 [Novolog FlexPen U-100 Insulin] 100 unit/mL (3 mL) insulin pen 10 unit SUBCUT .every meal isosorbide mononitrate 30 mg tablet extended release 24 hr 30 mg PO DAILY lisinopril 10 mg tablet 10 mg PO DAILY metoprolol succinate 50 mg tablet extended release 24 hr 50 mg PO DAILY nitroglycerin 0.4 mg tablet, sublingual 0.4 mg sublingual Q5M PRN (Reason: chest pain) pantoprazole 40 mg tablet,delayed release (DR/EC) 40 mg PO DAILY prazosin 2 mg capsule 2 mg PO DAILY ondansetron 4 mg tablet,disintegrating 4 mg PO Q6H PRN (Reason: nausea and vomiting) Qty: 20 0RF meclizine 25 mg tablet 25 mg PO TID PRN (Reason: dizziness) Qty: 30 0RF Referrals: Yessica Sheffield [Primary Care Provider] - 1 week
[2023-08-13 17:02] LABS: Basophils Percent Auto 0.3 % (0.2-2.0); Eosinophils Absolute Auto 0.3 10^3/uL (0.0-0.7); Eosinophils Percent Auto 2.4 % (0.9-7.0); Hematocrit 31.9 % (36.0-48.0); Hemoglobin 10.1 g/dL (12.0-16.0); Immature Granulocytes Abs Auto 0.05 10^3/uL (0.00-0.03); Immature Granulocytes Pct Auto 0.4 % (0.0-0.5); Lymphocytes Absolute Auto 1.5 10^3/uL (1.2-3.8); Lymphocytes Percent Auto 12.1 % (20.5-60.0); Mean Corpuscular HGB Conc 31.7 g/dL (29.9-35.2); Mean Corpuscular Hemoglobin 27.2 pg (26.7-34.0); Mean Platelet Volume 9.5 fL (9.5-13.5); Monocytes Absolute Auto 0.7 10^3/uL (0.3-0.8); Monocytes Percent Auto 5.8 % (1.7-12.0); Neutrophils Absolute Auto 9.8 10^3/uL (1.4-6.5); Platelet Count 360 10^3/uL (150-450); Red Blood Count 3.71 10^6/uL (4.20-5.40); Red Cell Distribution Width 13.3 % (11.0-15.0); White Blood Count 12.4 10^3/uL (4.0-11.0)
[2023-08-13 17:17] LABS: Alanine Aminotransferase 10 U/L (14-59); Albumin Globulin Ratio 0.6; Albumin Level 2.7 g/dL (3.4-5.0); Alkaline Phosphatase 99 U/L (46-116); Aspartate Amino Transferase 7 U/L (15-37); BUN Creatinine Ratio 19.4; Bilirubin Total 0.2 mg/dL (0.2-1.0); Calcium 9.1 mg/dL (8.5-10.1); Chloride 99 mmol/L (98-107); Estimated GFR (African America 52 (>=60); Estimated GFR (Non-African Ame 43 (>=60); Globulin 4.5 g/dL; Glucose 322 mg/dL (74-106); Sodium 134 mmol/L (136-145); Total Protein 7.2 g/dL (6.4-8.2)
[2023-08-13 17:27] LABS: Glucometer 259 mg/dL (74-106)
--- NOTE | 2023-08-13 18:40 | CT_ITS ---
The [address] [address] Patient Name: DUYEN ANAYA MRN: [id number] date: 1955 Sex: F Assigned Patient Location: ER Current Patient Location: Accession/Order Number: [id number] Exam Date: 08/13/2023 18:33 Report Date: 08/13/2023 19:30 At the request of: CORY ALMONTE Procedure: CT abdomen pelvis wo con EXAM: CT ABDOMEN PELVIS WO CON HISTORY: Left sided abdominal pain, constipation. COMPARISON: 03/23/2020. TECHNIQUE: Unenhanced helical acquisition obtained through the abdomen and the pelvis following administration of oral contrast. FINDINGS: The visualized lung bases and pleural spaces are clear. [id number] sliding-type hiatal hernia. Unremarkable gallbladder. No significant biliary ductal dilatation. Allowing for the lack of intravenous contrast, the liver, spleen, pancreas, adrenal glands and the kidneys are unremarkable. No renal or ureteral calculi. Mild diffuse atherosclerotic vascular calcifications. Numerous colonic diverticula. Pericolonic inflammation adjacent to the mid sigmoid colon consistent with acute uncomplicated diverticulitis. No ascites. No intra-abdominal abscess or free intraperitoneal gas. Prior hysterectomy. Fairly extensive stool burden throughout the colon. Moderate-severe degenerative disc disease at L5-S1. CT/CT abdomen pelvis wo con IMPRESSION: 1. Acute uncomplicated diverticulitis of the mid sigmoid colon. No evidence of abscess, ascites or free intraperitoneal gas. 2. Extensive stool burden throughout the colon indicating constipation. 3. Borderline enlarged left periaortic retroperitoneal lymph nodes, likely reactive. 4. Moderate to large size sliding-type hiatal hernia. Electronically authenticated by: MATT HARRIS Date: 08/13/2023 19:30
--- NOTE | 2023-08-13 19:37 | ED.ABDPAIN1 ---
HPI - Abdominal Pain General Chief Complaint: Abdominal Pain Stated Complaint: ABDOMINAL PAIN Time Seen by Provider: 08/13/23 16:31 Source: patient Mode of arrival: ambulance Limitations: no limitations History of Present Illness HPI narrative: the patient was initially seen by Dr. Moran and signed out to me after discussing the case with him thoroughly. Please see his full history and physical. Related Data Home Medications Medication Instructions Recorded Confirmed gabapentin 900 mg tablet,extended 900 mg PO QPM 05/08/23 06/28/23 release 24 hr hydrocodone 5 mg-acetaminophen 325 1 tab PO Q6H 05/08/23 06/28/23 mg tablet albuterol sulfate 90 mcg/actuation 2 puff inhalation Q4H PRN 06/28/23 06/28/23 aerosol inhaler shortness of breath or wheezing atorvastatin 80 mg tablet 80 mg PO DAILY 06/28/23 06/28/23 bupropion HCl 150 mg tablet,12 hr 150 mg PO DAILY 06/28/23 06/28/23 sustained-release buspirone 15 mg tablet 15 mg PO DAILY 06/28/23 06/28/23 dapagliflozin propanediol 10 mg 10 mg PO DAILY 06/28/23 06/28/23 tablet (Farxiga) fluoxetine 40 mg capsule 40 mg PO DAILY 06/28/23 06/28/23 insulin aspart U-100 100 unit/mL 10 unit subcut .every meal 06/28/23 06/28/23 (3 mL) subcutaneous pen (Novolog FlexPen U-100 Insulin aspart) insulin glargine 100 unit/mL (3 30 unit subcut BEDTIME 06/28/23 06/28/23 mL) subcutaneous pen (Lantus Solostar U-100 Insulin) isosorbide mononitrate 30 mg 30 mg PO DAILY 06/28/23 06/28/23 tablet,extended release 24 hr lisinopril 10 mg tablet 10 mg PO DAILY 06/28/23 06/28/23 metoprolol succinate 50 mg 50 mg PO DAILY 06/28/23 06/28/23 tablet,extended release 24 hr nitroglycerin 0.4 mg sublingual 0.4 mg sublingual Q5M PRN chest 06/28/23 06/28/23 tablet pain pantoprazole 40 mg tablet,delayed 40 mg PO DAILY 06/28/23 06/28/23 release prazosin 2 mg capsule 2 mg PO DAILY 06/28/23 06/28/23 Previous Rx's Medication Instructions Recorded meclizine 25 mg tablet 25 mg PO TID PRN dizziness #30 tabs 07/30/23 ondansetron 4 mg disintegrating 4 mg PO Q6H PRN nausea and 07/30/23 tablet vomiting #20 tabs ciprofloxacin HCl 500 mg tablet 500 mg PO Q12H #20 tabs 08/13/23 (Cipro) metronidazole 500 mg tablet 500 mg PO Q8H #30 tabs 08/13/23 Allergies Allergy/AdvReac Type Severity Reaction Status Date / Time No Known Drug Allergies Allergy Verified 04/18/23 12:17 PFSH PFSH Social History Smoking status: Never smoker Exam Constitutional Vital Signs, click to edit/add: Last Vital Signs Temp 97.8 F 08/13/23 16:29 Pulse 71 08/13/23 16:29 Resp 18 08/13/23 16:29 BP 180/91 H 08/13/23 16:29 Pulse Ox 97 08/13/23 16:29 O2 Del Method Room Air 08/13/23 17:11 Course Vital Signs Vital signs: Vital Signs Temperature 97.8 F 08/13/23 16:29 Pulse Rate 71 08/13/23 16:29 Respiratory Rate 18 08/13/23 16:29 Blood Pressure 180/91 H 08/13/23 16:29 Pulse Oximetry 97 08/13/23 16:29 Oxygen Delivery Method Room Air 08/13/23 16:29 Temperature 97.8 F 08/13/23 16:29 Pulse Rate 71 08/13/23 16:29 Respiratory Rate 18 08/13/23 16:29 Blood Pressure 180/91 H 08/13/23 16:29 Pulse Oximetry 97 08/13/23 16:29 Oxygen Delivery Method Room Air 08/13/23 17:11 MDM - Abdominal Pain MDM Narrative Medical decision making narrative: CAT scan per radiologist identifies mild uncomplicated diverticulitis and also constipation. She was sent home with a bottle of magnesium citrate and she's prescribed Cipro and Flagyl and was given 1st doses here. Physical examination at 7:30 PM shows her abdomen and into be very minimally tender in the left lower quadrant. No rebound or guarding. She does not require admission the hospital. Treatment diagnosis and disposition were discussed with the patient. Differential Diagnosis Differential diagnosis: Likely abdominal pain, constipation, diverticulitis, gastroenteritis and small bowel obstruction Lab Data Attestation: I reviewed the patient's lab results. Labs: Lab Results 08/13/23 08/13/23 08/13/23 Range/Units 16:35 16:53 17:26 WBC 12.4 H (4.0-11.0) 10^3/uL RBC 3.71 L (4.20-5.40) 10^6/uL Hgb 10.1 L (12.0-16.0) g/dL Hct 31.9 L (36.0-48.0) % MCV 86.0 (81.0-99.0) fL MCH 27.2 (26.7-34.0) pg MCHC 31.7 (29.9-35.2) g/dL RDW 13.3 (11.0-15.0) % Plt Count 360 (150-450) 10^3/uL MPV 9.5 (9.5-13.5) fL Neut % (Auto) 79.0 H (43.0-75.0) % Lymph % (Auto) 12.1 L (20.5-60.0) % [place] % (Auto) 5.8 (1.7-12.0) % Eos % (Auto) 2.4 (0.9-7.0) % Baso % (Auto) 0.3 (0.2-2.0) % Neut # (Auto) 9.8 H (1.4-6.5) 10^3/uL Lymph # (Auto) 1.5 (1.2-3.8) 10^3/uL [place] # (Auto) 0.7 (0.3-0.8) 10^3/uL Eos # (Auto) 0.3 (0.0-0.7) 10^3/uL Baso # (Auto) 0.0 (0.0-0.1) 10^3/uL Abs Immat Gran (auto) 0.05 H (0.00-0.03) 10^3/uL Imm/Tot Granulo (auto) 0.4 (0.0-0.5) % Sodium 134 L (136-145) mmol/L Potassium 4.0 (3.5-5.1) mmol/L Chloride 99 (98-107) mmol/L Carbon Dioxide 25.0 (21.0-32.0) mmol/L Anion Gap 14.0 BUN 24.0 H (7.0-18.0) mg/dL Creatinine 1.24 H (0.55-1.02) mg/dL Est GFR ( Amer) 52 L (>=60) Est GFR (Non-Af Amer) 43 L (>=60) BUN/Creatinine Ratio 19.4 Glucose 322 H (74-106) mg/dL Calcium 9.1 (8.5-10.1) mg/dL Total Bilirubin 0.2 (0.2-1.0) mg/dL AST 7 L (15-37) U/L ALT 10 L (14-59) U/L Alkaline Phosphatase 99 (46-116) U/L Total Protein 7.2 (6.4-8.2) g/dL Albumin 2.7 L (3.4-5.0) g/dL Globulin 4.5 g/dL Albumin/Globulin Ratio 0.6 POC Glucose 366 H 259 H (74-106) mg/dL Imaging Data CT scan - abdomen: Radiologist's impression: Procedure: CT abdomen pelvis wo con EXAM: CT ABDOMEN PELVIS WO CON HISTORY: Left sided abdominal pain, constipation. COMPARISON: 03/23/2020. TECHNIQUE: Unenhanced helical acquisition obtained through the abdomen and the pelvis following administration of oral contrast. FINDINGS: The visualized lung bases and pleural spaces are clear. [id number] sliding-type hiatal hernia. Unremarkable gallbladder. No significant biliary ductal dilatation. Allowing for the lack of intravenous contrast, the liver, spleen, pancreas, adrenal glands and the kidneys are unremarkable. No renal or ureteral calculi. Mild diffuse atherosclerotic vascular calcifications. Numerous colonic diverticula. Pericolonic inflammation adjacent to the mid sigmoid colon consistent with acute uncomplicated diverticulitis. No ascites. No intra-abdominal abscess or free intraperitoneal gas. Prior hysterectomy. Fairly extensive stool burden throughout the colon. Moderate-severe degenerative disc disease at L5-S1. IMPRESSION: 1. Acute uncomplicated diverticulitis of the mid sigmoid colon. No evidence of abscess, ascites or free intraperitoneal gas. 2. Extensive stool burden throughout the colon indicating constipation. 3. Borderline enlarged left periaortic retroperitoneal lymph nodes, likely reactive. 4. Moderate to large size sliding-type hiatal hernia. Electronically authenticated by: MATT HARRIS Date: 08/13/2023 19:30 Discharge Plan Discharge Chief Complaint: Abdominal Pain Clinical Impression: Diverticulitis, Constipation Patient Disposition: Home, Self-Care Time of Disposition Decision: 19:35 Condition: Good Mode of Transportation: Private Vehicle Prescriptions / Home Meds: New ciprofloxacin HCl [Cipro] 500 mg tablet 500 mg PO Q12H Qty: 20 0RF metronidazole 500 mg tablet 500 mg PO Q8H Qty: 30 0RF No Action hydrocodone-acetaminophen 5-325 mg tablet 1 tab PO Q6H gabapentin 900 mg tablet extended release 24 hr 900 mg PO QPM albuterol sulfate 90 mcg/actuation HFA aerosol inhaler 2 puff INHALATION Q4H PRN (Reason: shortness of breath or wheezing) atorvastatin 80 mg tablet 80 mg PO DAILY bupropion HCl 150 mg tablet sustained-release 12 hr 150 mg PO DAILY buspirone 15 mg tablet 15 mg PO DAILY Farxiga 10 mg tablet 10 mg PO DAILY fluoxetine 40 mg capsule 40 mg PO DAILY insulin glargine [Lantus Solostar U-100 Insulin] 100 unit/mL (3 mL) insulin pen 30 unit SUBCUT BEDTIME insulin aspart U-100 [Novolog FlexPen U-100 Insulin] 100 unit/mL (3 mL) insulin pen 10 unit SUBCUT .every meal isosorbide mononitrate 30 mg tablet extended release 24 hr 30 mg PO DAILY lisinopril 10 mg tablet 10 mg PO DAILY metoprolol succinate 50 mg tablet extended release 24 hr 50 mg PO DAILY nitroglycerin 0.4 mg tablet, sublingual 0.4 mg sublingual Q5M PRN (Reason: chest pain) pantoprazole 40 mg tablet,delayed release (DR/EC) 40 mg PO DAILY prazosin 2 mg capsule 2 mg PO DAILY ondansetron 4 mg tablet,disintegrating 4 mg PO Q6H PRN (Reason: nausea and vomiting) Qty: 20 0RF meclizine 25 mg tablet 25 mg PO TID PRN (Reason: dizziness) Qty: 30 0RF Instructions: Diverticulitis (ED), Constipation (ED) Additional Instructions: follow-up with your family doctor within a week Stand Alone Forms: Portal Instructions Referrals: Yessica Sheffield [Primary Care Provider] - 1 week
[2023-08-13] MEDS: METRONIDAZOLE 250 MG TABLET 500 MG PO (19:49)
[2023-08-13] MEDS: MAGNESIUM CITRATE 296 ML SOLUTION PO (19:49)
[2023-08-13] MEDS: CIPROFLOXACIN HCL 500 MG TABLET PO (19:50)
== END 2023-08-13 19:58 | disposition home or self-care (01) ==
PROVIDERS: Emergency Medicine; Emergency Provider Emergency Medicine
DX: K59.00 Constipation, unspecified (principal); K57.32 Diverticulitis of large intestine without perforation or abscess without bleeding; Z79.899 Other long term (current) drug therapy; Z79.4 Long term (current) use of insulin; E11.9 Type 2 diabetes mellitus without complications
CPT/HCPCS: 36415; 74176; 80053; 82948; 85025; 99285; Q9966

== ENCOUNTER 2023-08-23 08:27 | Emergency (ER) | payer MEDICARE, SELFPAY ==
[2023-08-23 08:31] VITALS: BP 138/80; PULSE 61; RESP 18; TEMP 36.6; O2SAT 100; BMI 26.9
[2023-08-23 09:05] LABS: Bilirubin Urine SMALL (NEGATIVE); Blood Urine LARGE (NEGATIVE); Clarity Urine CLOUDY (CLEAR); Color Urine DK. RED (YELLOW); Glucose Urine UA >=1000 mg/dL (NEGATIVE); Ketones Urine NEGATIVE (NEGATIVE); Leukocyte Esterase Urine TRACE (NEGATIVE); Nitrite Urine POSITIVE (NEGATIVE); Protein Urine 100 mg/dL (NEG/TRACE); Urobilinogen Urine 0.2 EU/dL (0.2-1.0); pH Urine 5.5 (5.0-9.0)
[2023-08-23 09:08] LABS: Urine Microscopic Indicated YES
[2023-08-23 09:14] LABS: Bacteria Urine SMALL #/HPF (NONE SEEN); Cast Seen? NONE SEEN #/LPF (NONE SEEN); Crystals Seen? None Seen #/HPF (None Seen); Mucus Urine NONE SEEN (NONE SEEN); RBC Urine >100 #/HPF (0-2); Squamous Epithelial Cell Urine NONE SEEN #/LPF (NONE/RARE); Urine Culture Indicated YES
[2023-08-23 09:40] VITALS: BP 150/75; PULSE 101
--- NOTE | 2023-08-23 09:43 | CT_ITS ---
The [address] [address] Patient Name: DUYEN ANAYA MRN: [id number] date: 1955 Sex: F Assigned Patient Location: ER Current Patient Location: Accession/Order Number: [id number] Exam Date: 08/23/2023 09:58 Report Date: 08/23/2023 10:35 At the request of: KASHMIR WILBURN Procedure: CT abdomen pelvis wo con CT abdomen pelvis wo con, 08/23/2023 9:58 AM EST, [place]001 INDICATION: abdominal pain flank pain with hematuria. COMPARISON: CT from 08/13/2023. TECHNIQUE: Helical images were obtained without intravenous contrast. Coronal and sagittal reconstructions were also generated. Dose reduction techniques were achieved by using automated exposure control and/or adjustment of mA and/or kV according to patient size and/or use of iterative reconstruction technique. Oral contrast: None. FINDINGS: 6.7 cm diameter sliding hiatal hernia is again noted. The liver is normal in size and attenuation. The gallbladder appears unremarkable. The pancreas is within normal limits. The spleen appears unremarkable. The adrenal glands appear unremarkable. The kidneys and ureters are within normal limits. The vasculature appears unremarkable. There is no pathologic retroperitoneal adenopathy. The urinary bladder appears unremarkable. No pelvic mass is identified. There is no evidence of pathologic pelvic adenopathy. There is no evidence of free air or free fluid. There is been interval decrease in bowel wall thickening involving the sigmoid colon, with development of a wall thickening now extending throughout the descending colon with stranding in the pericolonic fat. No obstruction or pneumatosis is seen. No significant hernia is identified. The osseous structures appear intact. CT/CT abdomen pelvis wo con IMPRESSION: Although there has been interval decrease in wall thickening in the sigmoid colon, there has been development of wall thickening throughout the descending colon with surrounding inflammation, consistent with colitis. No obstruction, free air or pneumatosis is seen. The kidneys appear unremarkable without evidence of calculi or hydronephrosis. No other significant interval change is seen. Electronically authenticated by: TISH BORDEN Date: 08/23/2023 10:35
[2023-08-23] MEDS: HYDROMORPHONE HCL 1 MG/ML CARTRIDGE IM (10:55)
--- NOTE | 2023-08-23 10:55 | ED_ITS ---
HPI - General Adult General Chief complaint: Urogenital-Female Stated complaint: BLOOD IN URINE Time Seen by Provider: 08/23/23 09:12 Source: patient Mode of arrival: Wheelchair History of Present Illness HPI narrative: this patient's here with her complaining of frequency of urination. She going very frequently and also his nose blood in the urine. She has no history of kidney stones. She is currently taking both ciprofloxacin and Flagyl for diverticular disease. She had a CT scan recently earlier this month that shows no evidence of nephrolithiasis and she has no history of ureterolithiasis. She is otherwise not had vomiting or diarrhea. She's not had documented fever but she's had some chills. She says her abdominal discomfort on the left side is a little bit better. She's not had follow-up with her primary care doctor. She states she is being compliant with her antibiotic therapy. She has had cystitis in the past. She's not had a urology intervention or procedures recently. Related Data Home Medications Medication Instructions Recorded Confirmed gabapentin 900 mg tablet,extended 900 mg PO QPM 05/08/23 06/28/23 release 24 hr hydrocodone 5 mg-acetaminophen 325 1 tab PO Q6H 05/08/23 06/28/23 mg tablet albuterol sulfate 90 mcg/actuation 2 puff inhalation Q4H PRN 06/28/23 06/28/23 aerosol inhaler shortness of breath or wheezing atorvastatin 80 mg tablet 80 mg PO DAILY 06/28/23 06/28/23 bupropion HCl 150 mg tablet,12 hr 150 mg PO DAILY 06/28/23 06/28/23 sustained-release buspirone 15 mg tablet 15 mg PO DAILY 06/28/23 06/28/23 dapagliflozin propanediol 10 mg 10 mg PO DAILY 06/28/23 06/28/23 tablet (Farxiga) fluoxetine 40 mg capsule 40 mg PO DAILY 06/28/23 06/28/23 insulin aspart U-100 100 unit/mL 10 unit subcut .every meal 06/28/23 06/28/23 (3 mL) subcutaneous pen (Novolog FlexPen U-100 Insulin aspart) insulin glargine 100 unit/mL (3 30 unit subcut BEDTIME 06/28/23 06/28/23 mL) subcutaneous pen (Lantus Solostar U-100 Insulin) isosorbide mononitrate 30 mg 30 mg PO DAILY 06/28/23 06/28/23 tablet,extended release 24 hr lisinopril 10 mg tablet 10 mg PO DAILY 06/28/23 06/28/23 metoprolol succinate 50 mg 50 mg PO DAILY 06/28/23 06/28/23 tablet,extended release 24 hr nitroglycerin 0.4 mg sublingual 0.4 mg sublingual Q5M PRN chest 06/28/23 06/28/23 tablet pain pantoprazole 40 mg tablet,delayed 40 mg PO DAILY 06/28/23 06/28/23 release prazosin 2 mg capsule 2 mg PO DAILY 06/28/23 06/28/23 Previous Rx's Medication Instructions Recorded meclizine 25 mg tablet 25 mg PO TID PRN dizziness #30 tabs 07/30/23 ondansetron 4 mg disintegrating 4 mg PO Q6H PRN nausea and 07/30/23 tablet vomiting #20 tabs ciprofloxacin HCl 500 mg tablet 500 mg PO Q12H #20 tabs 08/13/23 (Cipro) metronidazole 500 mg tablet 500 mg PO Q8H #30 tabs 08/13/23 Allergies Allergy/AdvReac Type Severity Reaction Status Date / Time No Known Drug Allergies Allergy Verified 04/18/23 12:17 PFSH PFSH Social History Smoking status: Never smoker Exam Narrative Exam Narrative: awake alert pleasant oriented. Examination the abdomen is flat soft supple there is no tenderness guarding mass rebound or rigidity noted. Bowel sounds are noted. Is no tenderness at McBurney's point. Skin integument are warm and dry with no pallor or diaphoresis or clamminess. Heart and lungs examination is normal. Extremities show no evidence of phlebitis edema Constitutional Vital Signs, click to edit/add: Last Vital Signs Temp 97.9 F 08/23/23 08:31 Pulse 101 H 08/23/23 09:40 Resp 18 08/23/23 08:31 BP 150/75 H 08/23/23 09:40 Pulse Ox 100 08/23/23 08:31 O2 Del Method Room Air 08/23/23 08:31 Course Vital Signs Vital signs: Vital Signs Temperature 97.9 F 08/23/23 08:31 Pulse Rate 61 08/23/23 08:31 Respiratory Rate 18 08/23/23 08:31 Blood Pressure 138/80 08/23/23 08:31 Pulse Oximetry 100 08/23/23 08:31 Oxygen Delivery Method Room Air 08/23/23 08:31 Temperature 97.9 F 08/23/23 08:31 Pulse Rate 101 H 08/23/23 09:40 Respiratory Rate 18 08/23/23 08:31 Blood Pressure 150/75 H 08/23/23 09:40 Pulse Oximetry 100 08/23/23 08:31 Oxygen Delivery Method Room Air 08/23/23 08:31 Medical Decision Making MDM Narrative Medical decision making narrative: patient's urinalysis is consistent with pyuria and hematuria with cystitis. Somewhat unusual since of course she's taking Cipro and Flagyl, if indeed she is compliant. I will start her on Macrobid. No indication of early sepsis or bacteremia at this stage. I emphasized the importance of drinking plenty of fluids and following up with primary care doctor to recheck her urine and finished all current antibiotics Lab Data Labs: Lab Results 08/23/23 Range/Units 08:46 Urine Color Dk. red (YELLOW) Urine Clarity Cloudy A (CLEAR) Urine pH 5.5 (5.0-9.0) Ur Specific [place] 1.020 (1.005-1.025) Urine Protein 100 A (NEG/TRACE) mg/dL Urine Glucose (UA) >=1000 A (NEGATIVE) mg/dL Urine Ketones Negative (NEGATIVE) mg/dL Urine Occult Blood Large A (NEGATIVE) Urine Nitrite Positive A (NEGATIVE) Urine Bilirubin Small A (NEGATIVE) Urine Urobilinogen 0.2 (0.2-1.0) EU/dL Ur Leukocyte Esterase Trace A (NEGATIVE) Urine RBC >100 A (0-2) #/HPF Urine WBC 10-20 A (NONE SEEN) #/HPF Ur Squamous Epith Cells None seen (NONE/RARE) #/LPF Urine Crystals None seen (None Seen) #/HPF Urine Bacteria Small A (NONE SEEN) #/HPF Urine Casts None seen (NONE SEEN) #/LPF Urine Mucus None seen (NONE SEEN) Ur Culture Indicated? Yes Discharge Plan Discharge Chief Complaint: Urogenital-Female Clinical Impression: Urinary tract infection Patient Disposition: Home, Self-Care Time of Disposition Decision: 10:58 Prescriptions / Home Meds: No Action hydrocodone-acetaminophen 5-325 mg tablet 1 tab PO Q6H gabapentin 900 mg tablet extended release 24 hr 900 mg PO QPM albuterol sulfate 90 mcg/actuation HFA aerosol inhaler 2 puff INHALATION Q4H PRN (Reason: shortness of breath or wheezing) atorvastatin 80 mg tablet 80 mg PO DAILY bupropion HCl 150 mg tablet sustained-release 12 hr 150 mg PO DAILY buspirone 15 mg tablet 15 mg PO DAILY Farxiga 10 mg tablet 10 mg PO DAILY fluoxetine 40 mg capsule 40 mg PO DAILY insulin glargine [Lantus Solostar U-100 Insulin] 100 unit/mL (3 mL) insulin pen 30 unit SUBCUT BEDTIME insulin aspart U-100 [Novolog FlexPen U-100 Insulin] 100 unit/mL (3 mL) insulin pen 10 unit SUBCUT .every meal isosorbide mononitrate 30 mg tablet extended release 24 hr 30 mg PO DAILY lisinopril 10 mg tablet 10 mg PO DAILY metoprolol succinate 50 mg tablet extended release 24 hr 50 mg PO DAILY nitroglycerin 0.4 mg tablet, sublingual 0.4 mg sublingual Q5M PRN (Reason: chest pain) pantoprazole 40 mg tablet,delayed release (DR/EC) 40 mg PO DAILY prazosin 2 mg capsule 2 mg PO DAILY ondansetron 4 mg tablet,disintegrating 4 mg PO Q6H PRN (Reason: nausea and vomiting) Qty: 20 0RF meclizine 25 mg tablet 25 mg PO TID PRN (Reason: dizziness) Qty: 30 0RF ciprofloxacin HCl [Cipro] 500 mg tablet 500 mg PO Q12H Qty: 20 0RF metronidazole 500 mg tablet 500 mg PO Q8H Qty: 30 0RF Additional Instructions: start Macrobid, finished the other antibiotics. Follow up with her primary care doctor Stand Alone Forms: Portal Instructions Referrals: Yessica Sheffield [Primary Care Provider] - 1 week
[2023-08-23 11:09] VITALS: BP 157/102; PULSE 56; RESP 20; TEMP 35.3; O2SAT 99
== END 2023-08-23 11:11 | disposition home or self-care (01) ==
PROVIDERS: Emergency Provider Emergency Medicine Emergency Medical Services
DX: N30.91 Cystitis, unspecified with hematuria (principal); Z79.899 Other long term (current) drug therapy; Z79.4 Long term (current) use of insulin
CPT/HCPCS: 74176; 81001; 87086; 96372; 99284; J1170

== ENCOUNTER 2025-01-01 16:04 | Observation (INO) | payer MEDICARE, SELFPAY ==
[2025-01-01] VITALS (27 sets, daily range): BP systolic 82–165; BP diastolic 38–110; PULSE 66–76; TEMP 36.4–36.9; O2SAT 79–99; BMI 27.3
--- OUTSIDE RECORDS SUMMARY | 2025-01-01 16:13 | XMS_ITS | CCD ---
Author Organization [facility] Care Team Providers Care Director Of Solutions Architecture Name Role Phone [facility] Primary Care Unavailable HOY ., DR DEXTER Attending Unavailable HOY ., DR DEXTER Admitting Unavailable HOY ., DR DEXTER Consulting Unavailable NILL ., DR SINGH Procedure Practitioner Unajuan miguel CHRISTOPHER, DR TEJAS Cuello Consulting Unavailable NADERER, DR CONSUELO Conte Consulting Unavailable GRECHNY ., KYLIE CHAVEZ Consulting Unavailbreanna ALMONTE ., DR RAY Consulting Unavailable NILL ., DR SINGH Consulting Unavailable EARL, HEIDI Consulting Unavailable MISC, DR LOCK Consulting Unavailable MISC, DR LOCK Attending Unavailable MISC, DR LOCK Admitting Unavailable MISC, DR LOCK Primary Care Unavailable MISC, DR LOCK Attending Unavailable MISC, DR LOCK Admitting Unavailable MISC, DR LOCK Primary Care Unavailable MISC, DR LOCK Consulting Unavailable MISC, DR LOCK Attending Unavailable MISC, DR LOCK Admitting Unavailable REQUEST, DR MCLEAN LISTED Primary Care Unavaila ble MISC, DR LOCK Attending Unavailable MISC, DR LOCK Admitting Unavailable MISC, DR LOCK Primary Care Unavailable GRECHNY ., KYLIE CHAVEZ Consulting UnavailWINSTON Mcmanus Admitting Unavailable YESSICA SHEFFIELD Primary Care Unavailable WINSTON JACINTO Attending Unavailable JANICE CAMP Consulting Unavailable WINSTON JACINTO Consulting Unavailable PACHECO, DR GOYAL Admitting Unavailable PACHECO, DR GOYAL Consulting Unavailable PACHECO, DR GOYAL Attending Unavailable SHEFFIELD, YESSICA Primary Care Unavailable EUFEMIA LOPEZ Consulting Unavailable REQUEST, DR MCLEAN LISTED Primary Care Unavaila ble BANKS ., DR CELIA Chavez Attending Unavailable BANKS ., DR CELIA Chavez Consulting Unavailable BANKS ., DR CELIA Chavez Admitting Unavailable ZIEBER, DR TEJAS Cuello Consulting Unavailable SUKHDEVCHJOSUE ., KYLIE CHAVEZ Consulting UnavailSHAIKH Issac Calderon Consulting Unavailable MINA EARL Consulting Unavailable Yessica Sheffield MD Primary Care Provider Dav Cardenas Attending Unavailable CORY ALBRIGHT Attending Unavailable LETY ROTHMAN Attending Unavailable LETY ROTHMAN Referring Unavailable ADAN PEARSON Attending Unavailable LETY ROTHMAN Attending Unavailable LETY ROTHMAN Referring Unavailable Allergies Allergy Classification Reported Allergen(s) Allergy Type Date of Onset Reaction(s) Facility (1 source) Acetaminophen / oxyCODONE Drug Allergy 1 [facility] (11 sources) Acetaminophen / oxyCODONE Drug Allergy 3 GI intolerance [facility] (11 sources) Dextromethorphan / guaiFENesin Drug Allergy 1 [facility] (11 sources) guaiFENesin Drug Allergy 3 [facility] Medications Current Medications Medication Drug Class(es) Dates Sig (Normalized) Sig (Original) acetaminophen 325 mg / HYDROcodone bitartrate 7.5 mg oral tablet (11 sources) Opioid Agonist HYDROcodone-acet ami nophen (Waterman) 7.5-325 MG tablet Active [id number] 200 actuat albuterol 0.09 mg/actuat metered dose inhaler (2 sources) beta2-Adrenergic Agonist take 2 puff(s) by inhalation every six hours for wheezing albuterol 108 (90 Base) MCG/ACT inhaler Inhale 2 puffs every 6 (six) hours if needed for wheezing. Active albuterol 108 (90 Base) MCG/ACT inhaler (9 sources) take 2 puff(s) by inhalation every six hours for wheezing albuterol 108 (90 Base) MCG/ACT inhaler Inhale 2 puffs every 6 (six) hours if needed for wheezing. Active aspirin 81 mg delayed release oral tablet (11 sources) Platelet Aggregation Inhibitor, Nonsteroidal Anti-inflammatory Drug take 1 tablet by mouth in the morning aspirin 81 MG EC tablet Take 81 mg by mouth in the morning. Active atorvastatin 80 mg oral tablet (11 sources) HMG-CoA Reductase Inhibitor take 1 tablet by mouth in the morning atorvastatin (Lipitor) 80 MG tablet Take 80 mg by mouth in the morning. Active bisacodyl 10 mg rectal suppository (11 sources) Stimulant Laxative bisacodyl (Dulcolax) 10 MG suppository Insert into the rectum. Active 12 hr buPROPion hydrochloride 150 mg extended release oral tablet (11 sources) Aminoketone take 1 tablet by mouth every twelve hours in the morning buPROPion SR (Wellbutrin SR) 150 MG 12 hr tablet Take 150 mg by mouth in the morning and 150 mg before bedtime. Do not crush, chew, or split. . Active busPIRone hydrochloride 15 mg oral tablet (11 sources) take 1 tablet by mouth every twelve hours busPIRone (Buspar) 15 MG tablet Take 15 mg by mouth every 12 (twelve) hours. Active cefuroxime 500 mg oral tablet (11 sources) Cephalosporin Antibacterial take 1 tablet by mouth in the morning cefuroxime (Ceftin) 500 MG tablet Take 500 mg by mouth in the morning and 500 mg before bedtime. Active cephalexin 500 mg oral capsule (11 sources) Cephalosporin Antibacterial take 1 capsule by mouth every six hours cephalexin (Keflex) 500 MG capsule Take 500 mg by mouth every 6 (six) hours. Active cyproheptadine hydrochloride 4 mg oral tablet (11 sources) cyproheptadine (Periactin) 4 MG tablet Take 4 mg by mouth. Active dapagliflozin 10 mg oral tablet (15 sources) Sodium-Glucose Cotransporter 2 Inhibitor Start: 06-14-2024 End: 06-19-2025 take 1 tablet by mouth once daily dapagliflozin (Farxiga) 10 MG Indications: Type 2 diabetes mellitus with hyperglycemia, with long-term current use of insulin ([facility]) Take 1 tablet (10 mg) by mouth Daily 90 tablet 1 12/21/2024 06/19/2025 Active End: 06-14-2024 Dapagliflozin Propanediol (F ARXIGA PO) Take by mouth. 06/14/2024 Discontinued (Reorder) Dapagliflozin Pr opanediol (FARXIGA PO) Take by mouth. Active docusate sodium 100 mg oral capsule (11 sources) take 1 capsule by mouth in the morning docusate sodium (Colace) 100 MG capsule Take 100 mg by mouth in the morning and 100 mg before bedtime. Active doxycycline hyclate 100 mg oral capsule (11 sources) Tetracycline-class Drug Start: 023 take 1 capsule by mouth every twelve hours doxycycline (Vibramycin) 100 MG capsule 100 mg every 12 (twelve) hours. 04/22/2023 Active 1 ml enoxaparin sodium 100 mg/ml prefilled syringe (11 sources) Low Molecular Weight Heparin Enoxaparin Sodium 100 MG/ML solution prefilled syringe Inject as directed. Active ferrous sulfate 325 mg oral tablet (11 sources) take 1 tablet by mouth at mealtime ferrous sulfate 325 (65 Fe) MG tablet Take 325 mg by mouth in the morning. Take with meals. Active FLUoxetine 10 mg oral capsule (11 sources) Serotonin Reuptake Inhibitor take 1 capsule by mouth in the morning FLUoxetine (PROzac) 10 MG capsule Take 10 mg by mouth in the morning. Active gabapentin 300 mg oral capsule (11 sources) Anti-epileptic Agent Start: take 1 capsule by mouth in the morning, then take 1 capsule by mouth in the evening, then take 1 capsule by mouth at bedtime gabapentin (Neurontin) 300 MG capsule Take 300 mg by mouth in the morning and 300 mg in the evening and 300 mg before bedtime. 09/18/2023 Active 0.2 ml glucagon 5 mg/ml auto-injector (10 sources) Antihypoglycemic Agent Start: End: inject 0.2 mL by subcutaneous injection once glucagon (Gvoke HypoPen 1-Pack) 1 MG/0.2ML injection Indications: Hypoglycemia Inject 0.2 mL (1 mg) under the skin 1 (one) time if needed for low blood sugar 0.2 Unspecified 1 06/14/2024 06/14/2025 Active hyoscyamine sulfate 0.025 mg/ml oral solution (11 sources) take 125 ug by mouth every four hours as needed for muscle spasms hyoscyamine (Levsin) 0.125 MG/5ML elixir Take 125 mcg by mouth every 4 (four) hours if needed for bladder spasms. Active 3 ml insulin aspart, human 100 unt/ml pen injector (11 sources) Insulin Analog Start: NovoLOG FLEXPEN 100 UNIT/ML pen Inject 3 mL under the skin in the morning and 3 mL at noon and 3 mL in the evening. Inject with meals. 08/31/2023 Active insulin detemir 100 unt/ml injectable solution (3 sources) Insulin Analog End: insulin detemir (Levemir) 100 UNIT/ML injection Inject under the skin at bedtime. 06/14/2024 Discontinued (Formulary change) 3 ml insulin glargine 100 unt/ml pen injector (20 sources) Insulin Analog Start: insulin glargine (Lantus SoloStar) 100 UNIT/ML pen Indications: Type 2 diabetes mellitus with hyperglycemia, with long-term current use of insulin (CMS/HCC) Inject 30 Units under the skin at bedtime 30 mL 1 12/21/2024 Active Start: 10-30-2024 End: 12-21-2024 insulin glargine (Lantus Gina oStar) 100 UNIT/ML pen Indications: Type 2 diabetes mellitus with hyperglycemia, with long-term current use of insulin (CMS/HCC) INJECT UNDER THE SKIN 30 UNITS EVERY MORNING 30 mL 1 10/30/2024 12/21/2024 Discontinued (Reorder) Start: 09-11-2024 insulin glargi ne (Lantus SoloStar) 100 UNIT/ML pen Indications: Type 2 diabetes mellitus with hyperglycemia, with long-term current use of insulin (CMS/HCC) INJECT 20 UNITS UNDER THE SKIN EVERY MORNING 15 mL 3 09/11/2024 Active Start: 06-14-2024 End: 09-12-2024 inject 20 [IU] by subcutaneous injection in the morning insulin glargine (Lantus) 100 UNIT/ML injection Indications: Type 2 diabetes mellitus with hyperglycemia, with long-term current use of insulin (CMS/HCC) Inject 20 Units under the skin in the morning. 18 mL 06/14/2024 09/12/2024 Active insulin isophane, human 70 unt/ml / insulin, regular, human 30 unt/ml injectable suspension (3 sources) Insulin End: 06-14-2024 insulin NPH-insulin regular (NovoLIN) (70-30) 100 UNIT/ML injection Inject under the skin 2 (two) times a day before meals. 06/14/2024 Discontinued (Formulary change) 3 ml insulin lispro 100 unt/ml pen injector (12 sources) Insulin Analog Start: 12-21-2024 End: 06-19-2025 insulin lispro (HumaLOG KWIKPEN) 100 UNIT/ML injection Indications: Type 2 diabetes mellitus with hyperglycemia, with long-term current use of insulin (CMS/HCC) Inject 10 Units under the skin in the morning and 10 Units at noon and 10 Units in the evening. Inject with meals. 10.8 mL 1 12/21/2024 06/19/2025 Active Start: 06-14-2024 End: 12-21-2024 insulin lispro (HumaLOG KWIK PEN) 100 UNIT/ML injection Indications: Type 2 diabetes mellitus with hyperglycemia, with long-term current use of insulin ([facility]) Inject 4 Units under the skin in the morning and 4 Units at noon and 4 Units in the evening. Inject with meals. 10.8 mL 1 06/14/2024 12/21/2024 Discontinued (Reorder) 24 hr isosorbide mononitrate 30 mg extended release oral tablet (11 sources) Nitrate Vasodilator take 1 tablet by mouth in the morning, then take 1 tablet by mouth every twenty-four hours isosorbide mononitrate ER (Imdur) 30 MG 24 hr tablet Take 30 mg by mouth in the morning. Do not crush or chew. . Active lisinopril 20 mg oral tablet (11 sources) Angiotensin Converting Enzyme Inhibitor take 1 tablet by mouth in the morning lisinopril 20 MG tablet Take 20 mg by mouth in the morning. Active melatonin 5 mg oral tablet (11 sources) melatonin 5 MG t ablet 1 (one) time each day at the same time. Active 24 hr metoprolol succinate 50 mg extended release oral tablet (11 sources) beta-Adrenergic Gaudencio take 1 tablet by mouth every twenty-four hours metoprolol succinate XL (Toprol-XL) 50 MG 24 hr tablet Take 50 mg by mouth. Do not crush or chew. Active nitroglycerin 0.4 mg sublingual tablet (11 sources) Nitrate Vasodilator nitroglycerin (Nitrostat) 0.[address] 0.4 mg under the tongue every 5 (five) minutes if needed for chest pain. Active nystatin 100 unt/mg topical powder (11 sources) Polyene Antifungal Start: nystatin (Mycostatin) 873994 UNIT/GM powder Apply 2-3 application topically if needed for rash 01/06/2024 Active ondansetron 4 mg oral tablet (13 sources) Serotonin-3 Receptor Antagonist Start: 025 End: take 1 tablet by mouth every eight hours for nausea ondansetron (Zofran) 4 MG tablet Indications: Type 2 diabetes mellitus with hyperglycemia, with long-term current use of insulin (CMS/HCC) Take 1 tablet (4 mg) by mouth every 8 (eight) hours if needed for nausea or vomiting 20 tablet 1 12/26/2024 03/26/2025 Active pantoprazole 40 mg delayed release oral tablet (11 sources) Proton Pump Inhibitor take 1 tablet by mouth before mealtime pantoprazole (ProtoNix) 40 MG EC tablet Take 40 mg by mouth in the morning. Take before meals. Do not crush, chew, or split. . Active polyethylene glycol 3350 67738 mg powder for oral solution (11 sources) Osmotic Laxative polyethylene gl ycol, PEG, 3350 (Miralax) 17 g packet Take by mouth. Active prazosin 2 mg oral capsule (11 sources) alpha-Adrenergic Gaudencio take 1 capsule by mouth at bedtime prazosin (Minipress) 2 MG capsule Take 2 mg by mouth at bedtime. Active 0.25 mg, 0.5 mg dose 1.5 ml semaglutide 1.34 mg/ml pen injector (4 sources) Start: 025 End: 025 inject 0.5 mg by subcutaneous injection every week semaglutide (Ozempic, 0.25 or 0.5 MG/DOSE,) 2 MG/1.5ML solution pen-injector Indications: Type 2 diabetes mellitus with hyperglycemia, with long-term current use of insulin (CMS/[facility]) Inject 0.5 mg under the skin 1 (one) time per week 4.5 mL 1 12/21/2024 06/07/2025 Active vitamin b12 1 mg oral tablet (11 sources) Vitamin B12 take 1 tablet by mouth in the morning cyanocobalamin (Vitamin B-12) 1000 MCG tablet Take 1,000 mcg by mouth in the morning. Active Problems Active Problems Problem Classification Problem Date Documented Date Episodic/Chronic Administrative/social admission (4 sources) Patient encounter status; Translations: [Dietary counseling and surveillance] 06-14-2024 Episodic Anxiety disorders (20 sources) Anxiety disorder, unspecified; Translations: [Acute post-trauma stress state] Onset: 01-06-2019 02-01-2024 Chronic Chronic obstructive pulmonary disease and bronchiectasis (12 sources) Chronic obstructive pulmonary disease, unspecified; Translations: [Chronic obstructive lung disease] Onset: 11-26-2022 02-01-2024 Chronic Chronic ulcer of skin (11 sources) Non-pressure chronic ulcer of other part of right foot limited to breakdown of skin; Translations: [Ulcer of other part of foot] Onset: 02-01-2024 02-01-2024 Chronic Coronary atherosclerosis and other heart disease (1 source) Atherosclerotic heart disease of [place] coronary artery without angina pectoris; Translations: [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] Onset: 05-14-2022 Chronic Delirium, dementia, and amnestic and other cognitive disorders (1 source) Postconcussional syndrome; Translations: [POSTCONCUSSIONAL SYNDROME] Onset: 05-14-2022 Chronic Diabetes mellitus with complications (20 sources) Type 2 diabetes mellitus with hyperglycemia; Translations: [Type 2 diabetes mellitus with ketoacidosis without coma] Onset: 03-27-2022 Chronic Diabetes mellitus without complication (1 source) Type 2 diabetes mellitus without complications; Translations: [TYPE 2 DM WITHOUT COMPLICATIONS] Onset: 11-26-2022 Chronic Diseases of white blood cells (1 source) Elevated white blood cell count, unspecified; Translations: [ELEVATED WHITE BLOOD CELL COUNT UNS] Onset: 05-14-2022 Chronic Disorders of lipid metabolism (17 sources) Pure hypercholesterolemia, unspecified; Translations: [Hyperlipidemia, unspecified] Onset: 05-14-2022 02-01-2024 Chronic Essential hypertension (16 sources) Essential (primary) hypertension; Translations: [Essential hypertension] Onset: 05-29-2019 02-01-2024 Chronic Genitourinary symptoms and ill-defined conditions (1 source) Personal history of urinary (tract) infections; Translations: [PERS HX URINARY TRACT INFECTIONS] Onset: 11-26-2022 Episodic Gout and other crystal arthropathies (1 source) Idiopathic gout, right ankle and foot; Translations: [IDIOPATHIC GOUT RIGHT ANKLE AND FOOT] Onset: 09-10-2022 Chronic Headache; including migraine (11 sources) Migraine; Translations: [Migraine, unspecified, not intractable, without status migrainosus] Onset: 02-01-2024 02-01-2024 Chronic Headache; including migraine (1 source) Headache; including migraine; Translations: [HEADACHE UNSPECIFIED] Onset: 05-14-2022 Heart valve disorders (20 sources) Nonrheumatic aortic (valve) stenosis; Translations: [Aortic stenosis, non-rheumatic ] Onset: 01-31-2018 02-01-2024 Chronic Miscellaneous mental health disorders (11 sources) Dream anxiety disorder; 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] Onset: 02-01-2024 02-01-2024 Chronic Mood disorders (12 sources) Major depressive disorder, single episode, unspecified; Translations: [Depressive disorder] Onset: 05-14-2022 02-01-2024 Chronic Mycoses (2 sources) Pain in toe; Translations: [Tinea unguium] 11-16-2024 Episodic Nutritional deficiencies (4 sources) Vitamin D deficiency; Translations: [Vitamin D deficiency, unspecified] 06-14-2024 Chronic Other aftercare (1 source) longterm (current) use of insulin; Translations: [FCI CURRENT USE OF INSULIN] Onset: 11-26-2022 Episodic Other aftercare (1 source) Other skilled nursing (current) drug therapy; Translations: [OTH [facility]CI CURRENT DRUG THERAPY] Onset: 11-26-2022 Episodic Other aftercare (1 source) longterm (current) use of aspirin; Translations: [FCI CURRENT USE OF ASPIRIN] Onset: 11-26-2022 Episodic Other aftercare (4 sources) Long-term current use of insulin; Translations: [longterm (current) use of insulin] 06-14-2024 Episodic Other connective tissue disease (3 sources) Pain in right foot; Translations: [PAIN IN RIGHT FOOT] Onset: 09-09-2022 Episodic Other endocrine disorders (4 sources) Hypoglycemia; Translations: [Hypoglycemia, unspecified] 06-14-2024 Chronic Other hereditary and degenerative nervous system conditions (1 source) Extrapyramidal and movement disorder, unspecified; Translations: [EXTRAPYRAMIDAL MOVEMNT DISORDER UNS] Onset: 11-26-2022 Chronic Other hereditary and degenerative nervous system conditions (1 source) Other specified extrapyramidal and movement disorders; Translations: [OTH SPEC EXTRAPYRAMIDAL MOVEMNT D/O] Onset: 05-14-2022 Chronic Other nutritional; endocrine; and metabolic disorders (11 sources) Body mass index 30+ - obesity; Translations: [Obesity, unspecified] Onset: 04-29-2021 02-01-2024 Chronic Other upper respiratory disease (11 sources) Allergic rhinitis; Translations: [Allergic rhinitis, unspecified] Onset: 02-01-2024 02-01-2024 Chronic Other upper respiratory infections (1 source) Acute upper respiratory infection, unspecified; Translations: [ACUTE UP RESPIRATORY INFECTION UNS] Onset: 11-26-2022 Episodic Screening and history of mental health and substance abuse codes (1 source) Personal history of nicotine dependence; Translations: [PERSONAL HISTORY OF NICOTINE DEPEND] Onset: 11-26-2022 Episodic Superficial injury; contusion (2 sources) Contusion of left foot; Translations: [Contusion of left foot, initial encounter] 11-16-2024 Episodic Unclassified (1 source) CONTACT W/AND (SUSP) EXPOS COVID-19; Translations: [CONTACT W/AND (SUSP) EXPOS COVID-19] Onset: 11-26-2022 Unclassified (2 sources) COUGH, UNSPECIFIED; Translations: [COUGH, UNSPECIFIED] Onset: 11-26-2022 Past or Other Problems Problem Classification Problem Date Documented Da te Episodic/Chronic Bacterial infection; unspecified site (2 sources) Unspecified Escherichia coli [E. coli] as the cause of diseases classified elsewhere; Translations: [Methicillin resistant Staphylococcus aureus infection as the cause of diseases classified elsewhere] Onset: 04-07-2022 Episodic [place] (11 sources) Partial thickness burn of right forearm; Translations: [Burn of second degree of right forearm, initial encounter] Onset: 01-06-2019 02-01-2024 Episodic Deficiency and other anemia (1 source) Iron deficiency anemia, unspecified; Translations: [IRON DEFICIENCY ANEMIA UNSPECIFIED] Onset: 05-14-2022 Episodic Diabetes mellitus without complication (11 sources) Hyperglycemia; Translations: [Hyperglycemia, unspecified] Onset: 01-06-2019 02-01-2024 Episodic E Codes: Fall (1 source) Unspecified fall, initial encounter; Translations: [UNSPECIFIED FALL INITIAL ENCOUNTER] Onset: 05-14-2022 Episodic Fluid and electrolyte disorders (16 sources) Hypo-osmolality and hyponatremia; Translations: [Hypokalemia] Onset: 01-06-2019 Episodic Fracture of upper limb (1 source) Unspecified fracture of upper end of left humerus, initial encounter for closed fracture; Translations: [UNS FX UPPER LT HUM INITIAL CLOS FX] Onset: 05-14-2022 Episodic Heart valve disorders (11 sources) Heart murmur; Translations: [Cardiac murmur, unspecified] Onset: 02-01-2024 02-01-2024 Episodic Immunizations and screening for infectious disease (1 source) Encounter for immunization; Translations: [ENCOUNTER FOR IMMUNIZATION] Onset: 05-14-2022 Episodic Malaise and fatigue (11 sources) Fatigue; Translations: [Other fatigue] Onset: 02-01-2024 02-01-2024 Episodic Nausea and vomiting (1 source) Nausea; Translations: [NAUSEA] Onset: 04-07-2022 Episodic Nonspecific chest pain (11 sources) Chest pain; Translations: [Chest pain, unspecified] Onset: 01-31-2018 02-01-2024 Episodic Open wounds of head; neck; and trunk (1 source) Laceration without foreign body of other part of head, initial encounter; Translations: [LAC W/O FB OTH PART HEAD INIT ENC] Onset: 05-14-2022 Episodic Other connective tissue disease (3 sources) Pain in left upper arm; Translations: [PAIN IN LEFT UPPER ARM] Onset: 05-07-2022 Episodic Other connective tissue disease (11 sources) Cramp in lower limb; Translations: [Cramp and spasm] Onset: 02-01-2024 02-01-2024 Episodic Other gastrointestinal disorders (1 source) Diarrhea, unspecified; Translations: [DIARRHEA UNSPECIFIED] Onset: 04-16-2022 Episodic Other injuries and conditions due to external causes (1 source) Other specified injuries of head, initial encounter; Translations: [OTH SPEC INJURIES HEAD INITIAL ENC] Onset: 05-14-2022 Episodic Other injuries and conditions due to external causes (1 source) History of falling; Translations: [HISTORY OF FALLING] Onset: 05-14-2022 Episodic Other nervous system disorders (1 source) Other abnormalities of gait and mobility; Translations: [OTHER ABNORMALITIES GAIT AND MOBILITY] Onset: 05-14-2022 Episodic Residual codes; unclassified (1 source) Acquired absence of both cervix and uterus; Translations: [ACQUIRED ABSENCE BOTH CERVIX AND UTERUS] Onset: 05-14-2022 Episodic Skin and subcutaneous tissue infections (5 sources) Cutaneous abscess of buttock; Translations: [Cutaneous abscess of perineum] Onset: 04-07-2022 Episodic Unclassified (1 source) COUGH, UNSPECIFIED; Translations: [COUGH, UNSPECIFIED] Onset: 11-25-2022 Urinary tract infections (1 source) Urinary tract infection, site not specified; Translations: [UTI SITE NOT SPECIFIED] Onset: 05-14-2022 Episodic Results Test Name Value Interpretation Reference Range Facility Glucose (Bld) [Mass/Vol]Orde red By: Edna Lloyd on 12-21-2024 Glucose Blood, POC 432 mg/dL [facility] - Hematology and Cell countson 12-21-2024 HbA1c (Bld) [Mass fraction] 12.3 % [facility] No Panel InformationOrdered By: Edna Lloyd on 12-21-2024 [facility] Provider Letteron 11-15-2024 Provider Letter Provider Letter November 15, 2024 MORELIA GODOY [address] [place] [address] [address] [place] [address] : 1955 Dear _ , We have been trying to reach you with no success. You have an appointment with Dr. Cardenas on Thursday November 21, 2024 @ 10:30 a.m. which will need to be rescheduled since he will be out of the office that day. Please contact the office at the number listed below to get this appointment rescheduled at your earliest convenience. Thank you for your prompt attention to this matter. Sincerely, Family Medicine [address] [address] Ext. [phone] Normal [facility] Glucose (Bld) [Mass/Vol]on Glucose Blood, POC 520 mg/dL [facility] HbA1c (Bld) [Mass fraction]o n 06-14-2024 [facility] - H[facility]ology and Cell countson 06-14-2024 HbA1c (Bld) [Mass fraction] [facility] Covid-19 PCR (CVD[facility])on 11-11 SARS-CoV-2 (COVID-19) RNA IRVIN+probe Ql (Unsp spec) Not detected Normal NOT DETECTED [facility] Comment on above: Result Comment: When diagnostic testing is negative, the possibility of a false negative should be considered in the context of a patient's recent exposures and the presence of clinical signs and symptoms consistent with SARS-CoV-2. This test is not yet approved or cleared by the [place] FDA. When there are no FDA-approved or cleared tests available, and other criteria are met, FDA can make tests available under an emergency access mechanism called an Emergency Use Authorization (EUA). The EUA for this test is supported by the [place] of Health and Human Service's declaration that circumstances exist to justify the emergency use of in vitro diagnostics for the detection and/or diagnosis of the virus that causes COVID-19. This EUA will remain in effect for the duration of the COVID-19 declaration justifying emergency of IVDs, unless it is terminated or revoked by the FDA (after which the test may no longer be used). Performed By: #### P OCGLUC #### [facility] [address] [place] [address] Dr. Karmen Mccormick INFLUENZA A AND B [facility] 11-25 [facility] SEE BELOW Normal [facility] Comment on above: Result Comment: Nega tive for Flu A protein angiten. Infection due to Flu A cannot be ruled out. Flu A angiten in the sample may be below the detection limit of the test. Performed By: #### P OCGLUC #### [facility] [address] [place] [address] Dr. Karmen Mccormick [facility] Normal [facility] Comment on above: Result Comment: Nega tive for Flu B protein antigen. Infection due to Flu B cannot be ruled out. Flu B antigen in the sample may be below the detection limit of the test. Performed By: #### P OCGLUC #### [facility] [address] [place] [address] Dr. Karmen Mccormick INFLUENZA A AG Negative Normal NEGATIVE SEE COMMENT [facility] Comment on above: Performed By: #### P OCGLUC #### [facility] [address] [place] [address] Dr. Karmen Mccormick INFLUENZA B AG Negative Normal NEGATIVE SEE COMMENT [facility] Comment on above: Performed By: #### P OCGLUC #### [facility] [address] [place] [address] Dr. Karmen Mccormick XR CHEST 2 Von 11-25-2022 XR CHEST 2 V EXAMINATION: XR CHEST 2 V, , 11/25/2022 4:42 PM EDT INDICATION: COUGH HISTORY: Ordering Provider Reason for Exam: Technologist Note: Additional: COMPARISON: None. TECHNIQUE: Chest x-ray: Two views. FINDINGS: No pneumothorax, pleural effusion or focal airspace consolidation. Heart is normal in size. Bony thorax is unremarkable. IMPRESSION: No acute cardiopulmonary process. Electronically authenticated by: JANICE CAMP Date: 2022-11-25 17:31 Normal [facility] XR FOOT RT MIN 3 VIEWSon XR FOOT RT MIN 3 VIEWS EXAM: XR FOOT RT MIN 3 VIEWS HISTORY: Pain in right foot. Right foot pain. No known trauma. COMPARISON: 12/03/2020. CT 01/02/2021. TECHNIQUE: Three views of the right foot. FINDINGS: Bones are osteopenic. Previous fractures of the bases of the second and third metatarsals are intervally healed. No acute fracture is identified. Mild to moderate marginal spur and joint space narrowing at the first MTP joint. Stable bone island at the first distal phalanx. No significant soft tissue swelling. No radiopaque foreign body. Small plantar calcaneal spur. Enthesophyte at the Achilles tendon insertion. IMPRESSION: 1. Osteopenia. No acute fracture. 2. Healed fractures of the bases of the second and third metatarsals. 3. Small plantar calcaneal spur. Electronically authenticated by: EUFEMIA LOPEZ Date: 2022-09-09 09:54 Normal [facility] OCC BLD IMMUNO SCREENon 04-15 OCCULT BLOOD Negative Normal NEGATIVE [facility] Comment on above: Performed By: #### B MP #### [facility] [address] [address] [address] Karmen Mccormick POINT OF CARE GLUCOSEon 04-15 Glucose [Mass/Vol] 99 mg/dL Normal 74-106 [facility] Comment on above: Performed By: #### P OCGLUC #### [facility] [address] [address] [address] Karmen Mccormick POINT OF CARE GLUCOSEon 04-14 Glucose [Mass/Vol] 139 mg/dL Critically high 74-106 [facility] Comment on above: Performed By: #### C VDTBH #### [facility] [address] [address] [address] Karmen Mccormick Glucose [Mass/Vol] 183 mg/dL Critically high [address] [place] [address] Comment on above: Performed By: #### P OCGLUC #### [facility] [address] [address] [address] Karmen Mccormick Glucose [Mass/Vol] 217 mg/dL Critically high [address] [place] [address] Comment on above: Performed By: #### P OCGLUC #### [facility] [address] [place] [address] Dr. Karmen Mccormick Glucose [Mass/Vol] 108 mg/dL Critically high [address] [place] [address] Comment on above: Performed By: #### C VDTBH #### [facility] [address] [place] [address] Dr. Karmen Mccormick CULTURE URINEon 05-10-2022 CULTURE URINE Isolate 1 Escherichia coli >100,000 cfu/mL of ORGANISM 1 Escherichia coli ANTIBIOTIC M.I.C RX STATUS Ampicillin 4 S F Ampicillin/Sulbacta m <=2 S F Piperacillin/Tazoba ctam <=4 S F Cefazolin <=4 S F Ceftazidime <=1 S F Ceftriaxone <=1 S F Ertapenem <=0.5 S F Imipenem <=0.25 S F Amikacin <=2 S F Gentamicin <=1 S F Tobramycin <=1 S F Ciprofloxacin <=0.25 S F Levofloxacin <=0.12 S F Nitrofurantoin <=16 S F Trimethoprim/Sulfam ethoxazole <=20 S F Normal [facility] Comment on above: Performed By: #### P OCGLUC #### [facility] [address] [place] [address] Dr. Karmen Mccormick POINT OF CARE GLUCOSEon 04-14 Glucose [Mass/Vol] 194 mg/dL Critically high [address] [place] [address] Comment on above: Performed By: #### P OCGLUC #### [facility] [address] [place] [address] Dr. Karmen Mccormick Glucose [Mass/Vol] 135 mg/dL Critically high 74-106 [facility] Comment on above: Performed By: #### C BC #### [facility] [address] [address] [address] Karmen Mccormick Glucose [Mass/Vol] 208 mg/dL Critically high 74-106 [facility] Comment on above: Performed By: #### P OCGLUC #### [facility] [address] [address] [address] Karmen Mccormick Glucose [Mass/Vol] 79 mg/dL Normal 74-106 [facility] Comment on above: Performed By: #### P OCGLUC #### [facility] [address] [address] [address] Karmen Mccormick IRON AND TIBCon 05-09-2022 % SATURATION 9.9 % Normal [facility] Comment on above: Performed By: #### C BC #### [facility] [address] [address] [address] Karmen Mccormick Iron [Mass/Vol] 25.0 ug/dL Critically low 50.0-170.0 [facility] Comment on above: Performed By: #### C BC #### [facility] [address] [address] [address] Karmen Mccormick TIBC DIRECT 253.0 ug/dL Normal 250.0-450.0 [facility] Comment on above: Performed By: #### C BC #### [facility] [address] [address] [address] Karmen Mccormick POINT OF CARE GLUCOSEon 04-14 Glucose [Mass/Vol] 197 mg/dL Critically high -106 [facility] Comment on above: Performed By: #### P OCGLUC #### [facility] [address] [address] [address] Karmen Mccormick Glucose [Mass/Vol] 119 mg/dL Critically high 74-106 [facility] Comment on above: Performed By: #### C VDTBH #### [facility] [address] [address] [address] Karmen Mccormick Glucose [Mass/Vol] 176 mg/dL Critically high 74-106 [facility] Comment on above: Performed By: #### P OCGLUC #### [facility] [address] [place] [address] Dr. Karmen Mccormick Glucose [Mass/Vol] 118 mg/dL Critically high 74-106 [facility] Comment on above: Performed By: #### P OCGLUC #### [facility] [address] [place] [address] Dr. Karmen Mccormick VIT B12 AND FOLATEon 022 Cobalamin (Vitamin B12) [Mass/Vol] 613.0 pg/mL Normal 193.0-986.0 [facility] Comment on above: Performed By: #### P OCGLUC #### [facility] [address] [place] [address] Dr. Karmen Mccormick FOLATE 17.90 ng/mL Normal 8.60-58.90 [facility] Comment on above: Performed By: #### P OCGLUC #### [facility] [address] [place] [address] Dr. Karmen Mccormick CBC AUTO DIFFon 05-08-2022 BASO # 0.0 103/ul Normal 0.0-0.1 [facility] Comment on above: Performed By: #### P OCGLUC #### [facility] [address] [place] [address] Dr. Karmen Mccormick Basophils/100 WBC (Bld) 0.4 % Normal 0.2-2.0 [facility] Comment on above: Performed By: #### P OCGLUC #### [facility] [address] [place] [address] Dr. Karmen Mccormick EO # 0.2 103/ul Normal 0.0-0.7 [facility] Comment on above: Performed By: #### P OCGLUC #### [facility] [address] [place] [address] Dr. Karmen Mccormick Eosinophils/100 WBC (Bld) 2.3 % Normal 0.9-7.0 [facility] Comment on above: Performed By: #### P OCGLUC #### [facility] [address] [address] [address] Karmen Mccormick Erythrocyte distribution width (RBC) [Ratio] 13.6 % Normal 11.0-15.0 [facility] Comment on above: Performed By: #### P OCGLUC #### [facility] [address] [address] [address] Karmen Mccormick Hematocrit (Bld) [Volume fraction] 33.6 % Critically low 36.0-48.0 [facility] Comment on above: Performed By: #### P OCGLUC #### [facility] [address] [place] [address] Dr. Karmen Mccormick Hemoglobin (Bld) [Mass/Vol] 10.5 g/dL Critically low 12.0-16.0 [facility] Comment on above: Performed By: #### P OCGLUC #### [facility] [address] [place] [address] Dr. Karmen Mccormick IG # 0.03 10e3/ul Normal 0.00-0.03 [facility] Comment on above: Performed By: #### P OCGLUC #### [facility] [address] [place] [address] Dr. Karmen Mccormick IG % 0.3 % Normal 0.0-0.5 [facility] Comment on above: Performed By: #### P OCGLUC #### [facility] [address] [place] [address] Dr. Karmen Mccormick LYMPH # 1.6 103/ul Normal 1.2-3.8 [facility] Comment on above: Performed By: #### P OCGLUC #### [facility] [address] [place] [address] Dr. Karmen Mccormick Lymphocytes/100 WBC (Bld) 17.1 % Critically low 20.5-60.0 [facility] Comment on above: Performed By: #### P OCGLUC #### [facility] [address] [place] [address] Dr. Karmen Mccormick MANUAL DIFF REQ NO Normal [facility] Comment on above: Performed By: #### P OCGLUC #### [facility] [address] [address] [address] Karmen Mccormick MCH (RBC) [Entitic mass] 29.1 pg Normal 26.7-34.0 [facility] Comment on above: Performed By: #### P OCGLUC #### [facility] [address] [place] [address] Dr. Karmen Mccormick MCHC (RBC) [Mass/Vol] 31.3 g/dL Normal 29.9-35.2 [facility] Comment on above: Performed By: #### P OCGLUC #### [facility] [address] [place] [address] Dr. Karmen Mccormick MCV (RBC) [Entitic vol] 93.1 fL Normal 81.0-99.0 [facility] Comment on above: Performed By: #### P OCGLUC #### [facility] [address] [place] [address] Dr. Karmen Mccormick MONO # 0.6 103/ul Normal 0.3-0.8 [facility] Comment on above: Performed By: #### P OCGLUC #### [facility] [address] [place] [address] Dr. Karmen Mccormick Monocytes/100 WBC (Bld) 6.4 % Normal 1.7-12.0 [facility] Comment on above: Performed By: #### P OCGLUC #### [facility] [address] [place] [address] Dr. Karmen Mccormick NEUT # 6.8 103/ul Critically high 1.4-6.5 [facility] Comment on above: Performed By: #### P OCGLUC #### [facility] [address] [place] [address] Dr. Karmen Mccormick Neutrophils/100 WBC (Bld) 73.5 % Normal 43.0-75.0 [facility] Comment on above: Performed By: #### P OCGLUC #### [facility] [address] [place] [address] Dr. Karmen Mccormick Platelet mean volume (Bld) [Entitic vol] 10.0 fL Normal 9.5-13.5 [facility] Comment on above: Performed By: #### P OCGLUC #### [facility] [address] [address] [address] Karmen Mccormick PLT 223 103/ul Normal 150-450 [facility] Comment on above: Performed By: #### P OCGLUC #### [facility] [address] [address] [address] Karmen Mccormick RBC 3.61 106/ul Critically low 4.20-5.40 [facility] Comment on above: Performed By: #### P OCGLUC #### [facility] [address] [address] [address] Karmen Mccormick WBC 9.3 103/ul Normal 4.0-11.0 [facility] Comment on above: Performed By: #### P OCGLUC #### [facility] [address] [address] [address] Karmen Mccormick POINT OF CARE GLUCOSEon 04-14 Glucose [Mass/Vol] 163 mg/dL Critically high 74-106 [facility] Comment on above: Performed By: #### P OCGLUC #### [facility] [address] [address] [address] Karmen Mccormick Glucose [Mass/Vol] 87 mg/dL Normal 74-106 [facility] Comment on above: Performed By: #### P OCGLUC #### [facility] [address] [address] [address] Karmen Mccormick Glucose [Mass/Vol] 183 mg/dL Critically high 74-106 [facility] Comment on above: Performed By: #### C BC #### [facility] [address] [address] [address] Karmen Mccormick Glucose [Mass/Vol] 146 mg/dL Critically high 74-106 [facility] Comment on above: Performed By: #### P OCGLUC #### [facility] [address] [address] [address] Karmen Mccormick PROF CHEM 8 (BAS METB)on Anion gap [Moles/Vol] 11.7 mmol/L Normal [facility] Comment on above: Performed By: #### C BC #### [facility] [address] [address] [address] Karmen Mccormick Calcium [Mass/Vol] 8.4 mg/dL Critically low 8.5-10.1 [facility] Comment on above: Performed By: #### C BC #### [facility] [address] [address] [address] Karmen Mccormick Chloride [Moles/Vol] 104 mmol/L Normal 98-107 [facility] Comment on above: Performed By: #### C BC #### [facility] [address] [address] [address] Karmen Mccormick CO2 [Moles/Vol] 25.2 mmol/L Normal 21.0-32.0 [facility] Comment on above: Performed By: #### C BC #### [facility] [address] [place] [address] Dr. Karmen Mccormick Creatinine [Mass/Vol] 0.82 mg/dL Normal 0.55-1.02 [facility] Comment on above: Performed By: #### C BC #### [facility] [address] [address] [address] Karmen Mccormick EGFR-AF [place] >60 Normal >=60 [facility] Comment on above: Performed By: #### C BC #### [facility] [address] [place] [address] Dr. Karmen Mccormick EGFR-NON AF [place]IZ[place] >60 Normal >=60 [facility] Comment on above: Performed By: #### C BC #### [facility] [address] [address] [address] Karmen Mccormick Glucose [Mass/Vol] 175 mg/dL Critically high 74-106 [facility] Comment on above: Performed By: #### C BC #### [facility] [address] [address] [address] Karmen Mccormick Potassium [Moles/Vol] 4.9 mmol/L Normal 3.5-5.1 [facility] Comment on above: Performed By: #### C BC #### [facility] [address] [place] [address] Dr. Karmen Mccormick Sodium [Moles/Vol] 136 mmol/L Normal 136-145 [facility] Comment on above: Performed By: #### C BC #### [facility] [address] [place] [address] Dr. Karmen Mccormick Urea nitrogen [Mass/Vol] 25.0 mg/dL Critically high 7.0-18.0 [facility] Comment on above: Performed By: #### C BC #### [facility] [address] [place] [address] Dr. Karmen Mccormick Urea nitrogen/Creatinine [Mass ratio] 30.5 mg/mg Normal [facility] Comment on above: Performed By: #### C BC #### [facility] [address] [place] [address] Dr. Karmen Mccormick UA RANDOM W/MICROSCOPICon BACTERIA SMALL Abnormal NONE SEEN [facility] Comment on above: Performed By: #### B MP #### [facility] [address] [place] [address] Dr. Karmen Mccormick Bilirubin Ql (U) Negative Normal NEGATIVE [facility] Comment on above: Performed By: #### B MP #### [facility] [address] [place] [address] Dr. Karmen Mccormick CAST NONE SEEN Normal NONE SEEN [facility] Comment on above: Performed By: #### B MP #### [facility] [address] [place] [address] Dr. Karmen Mccormick Clarity (U) CLEAR Normal CLEAR [facility] Comment on above: Performed By: #### B MP #### [facility] [address] [place] [address] Dr. Karmen Mccormick Color (U) LT. YELLOW Normal YELLOW [facility] Comment on above: Performed By: #### B MP #### [facility] [address] [place] [address] Dr. Karmen Mccormick Crystals LM Nom (Urine sed) NONE SEEN Normal NONE SEEN [facility] Comment on above: Performed By: #### B MP #### [facility] [address] [address] [address] Karmen Mccormick Epithelial cells LM Ql (Urine sed) RARE Normal NONE SEEN /RARE [facility] Comment on above: Performed By: #### B MP #### [facility] [address] [place] [address] Dr. Karmen Mccormick Glucose Ql (U) >1000 Abnormal NEGATIVE [facility] Comment on above: Performed By: #### B MP #### [facility] [address] [place] [address] Dr. Karmen Mccormick Hemoglobin Ql (U) MODERATE Abnormal NEGATIVE [facility] Comment on above: Performed By: #### B MP #### [facility] [address] [place] [address] Dr. Karmen Mccormick Ketones Ql (U) Negative Normal NEGATIVE [facility] Comment on above: Performed By: #### B MP #### [facility] [address] [place] [address] Dr. Karmen Mccormick LEUKOCYTES TRACE Abnormal NEGATIVE [facility] Comment on above: Performed By: #### B MP #### [facility] [address] [place] [address] Dr. Karmen Mccormick MUCOUS NONE SEEN Normal NONE SEEN [facility] Comment on above: Performed By: #### B MP #### [facility] [address] [place] [address] Dr. Karmen Mccormick Nitrite Ql (U) Positive Abnormal NEGATIVE [facility] Comment on above: Performed By: #### B MP #### [facility] [address] [place] [address] Dr. Karmen Mccormick pH (U) 6.0 [pH] Normal 5-9 [facility] Comment on above: Performed By: #### B MP #### [facility] [address] [place] [address] Dr. Karmen Mccormick RBC 10-20 Abnormal 0-2 [facility] Comment on above: Performed By: #### B MP #### [facility] [address] [place] [address] Dr. Karmen Mccormick SPEC GRAVITY 1.020 Normal 1.005-<=1.025 [facility] Comment on above: Performed By: #### B MP #### [facility] [address] [place] [address] Dr. Karmen Mccormick UA PROTEIN TRACE Normal NEGATIVE/ TRACE [facility] Comment on above: Performed By: #### B MP #### [facility] [address] [address] [address] Karmen Mccormick Urobilinogen Qn (U) 0.2 {Rajeev'U}/dL Normal 0.2 - 1. 0 [facility] Comment on above: Performed By: #### B MP #### [facility] [address] [place] [address] Dr. Karmen Mccormick WBC 5-10 Abnormal NONE SEEN [facility] Comment on above: Performed By: #### B MP #### [facility] [address] [place] [address] Dr. Karmen Mccormick CBC AUTO DIFFon 05-07-2022 BASO # 0.1 103/ul Normal 0.0-0.1 [facility] Comment on above: Performed By: #### A CETON #### [facility] [address] [place] [address] Dr. Karmen Mccormick Basophils/100 WBC (Bld) 0.5 % Normal 0.2-2.0 [facility] Comment on above: Performed By: #### A CETON #### [facility] [address] [place] [address] Dr. Karmen Mccormick EO # 0.2 103/ul Normal 0.0-0.7 [facility] Comment on above: Performed By: #### A CETON #### [facility] [address] [place] [address] Dr. Karmen Mccormick Eosinophils/100 WBC (Bld) 1.6 % Normal 0.9-7.0 [facility] Comment on above: Performed By: #### A CETON #### [facility] [address] [place] [address] Dr. Karmen Mccormick Erythrocyte distribution width (RBC) [Ratio] 13.4 % Normal 11.0-15.0 [facility] Comment on above: Performed By: #### A CETON #### [facility] [address] [address] [address] Karmen Mccormick Hematocrit (Bld) [Volume fraction] 38.0 % Normal 36.0-48.0 [facility] Comment on above: Performed By: #### A CETON #### [facility] [address] [address] [address] Karmen Mccormick Hemoglobin (Bld) [Mass/Vol] 12.3 g/dL Normal 12.0-16.0 [facility] Comment on above: Performed By: #### A CETON #### [facility] [address] [address] [address] Karmen Mccormick IG # 0.06 10e3/ul Critically high 0.00-0.03 [facility] Comment on above: Performed By: #### A CETON #### [facility] [address] [address] [address] Karmen Mccormick IG % 0.5 % Normal 0.0-0.5 [facility] Comment on above: Performed By: #### A CETON #### [facility] [address] [address] [address] Karmen Mccormick LYMPH # 1.5 103/ul Normal 1.2-3.8 [facility] Comment on above: Performed By: #### A CETON #### [facility] [address] [place] [address] Dr. Karmen Mccormick Lymphocytes/100 WBC (Bld) 12.0 % Critically low 20.5-60.0 [facility] Comment on above: Performed By: #### A CETON #### [facility] [address] [address] [address] Karmen Mccormick MANUAL DIFF REQ NO Normal [facility] Comment on above: Performed By: #### A CETON #### [facility] [address] [place] [address] Dr. Karmen Mccormick MCH (RBC) [Entitic mass] 29.6 pg Normal 26.7-34.0 [facility] Comment on above: Performed By: #### A CETON #### [facility] [address] [address] [address] Karmen Mccormick MCHC (RBC) [Mass/Vol] 32.4 g/dL Normal 29.9-35.2 [facility] Comment on above: Performed By: #### A CETON #### [facility] [address] [address] [address] Karmen Mccormick MCV (RBC) [Entitic vol] 91.6 fL Normal 81.0-99.0 [facility] Comment on above: Performed By: #### A CETON #### [facility] [address] [address] [address] Karmen Mccormick MONO # 0.7 103/ul Normal 0.3-0.8 [facility] Comment on above: Performed By: #### A CETON #### [facility] [address] [place] [address] Dr. Karmen Mccormick Monocytes/100 WBC (Bld) 5.1 % Normal 1.7-12.0 [facility] Comment on above: Performed By: #### A CETON #### [facility] [address] [place] [address] Dr. Karmen Mccormick NEUT # 10.3 103/ul Critically high 1.4-6.5 [facility] Comment on above: Performed By: #### A CETON #### [facility] [address] [place] [address] Dr. Karmen Mccormick Neutrophils/100 WBC (Bld) 80.3 % Critically high 43.0-75.0 [facility] Comment on above: Performed By: #### A CETON #### [facility] [address] [address] [address] Karmen Mccormick Platelet mean volume (Bld) [Entitic vol] 10.0 fL Normal 9.5-13.5 [facility] Comment on above: Performed By: #### A CETON #### [facility] [address] [address] [address] Karmen Mccormick PLT 280 103/ul Normal 150-450 [facility] Comment on above: Performed By: #### A CETON #### [facility] [facility] [address], [place] [address] Dr. Karmen Mccormick RBC 4.15 106/ul Critically low 4.20-5.40 [facility] Comment on above: Performed By: #### A CETON #### [facility] [address], [place] [address] Dr. Karmen Mccormick WBC 12.8 103/ul Critically high 4.0-11.0 [facility] Comment on above: Performed By: #### A CETON #### [facility] [address], [place] [address] CSPINE WO CONon CT CSPINE WO CON EXAMINATION: CT CSPINE WO CON HISTORY: Unspecified fall ; forehead laceration, pain after falling COMPARISON: No relevant comparison available. TECHNIQUE: Axial, Coronal, and Sagittal images were created without IV contrast. Dose reduction techniques were achieved by using automated exposure control and/or adjustment of mA and/or kV according to patient size and/or use of iterative reconstruction technique. FINDINGS: VERTEBRAL BODIES: Reversal of the normal lordotic curvature. No fracture, spondylolisthesis, bone lesion. FACET JOINTS: Multilevel moderate degenerative changes, greatest on the left at C2-3 and C3-4 resulting in bone encroachment and moderate or greater foramen narrowing. No fracture or disruption. CERVICAL DISCS: Mild narrowing C3-4. Marked narrowing C4-5, C5-6, C6-7. Posterior disc-osteophyte complexes cause moderate or greater central canal narrowing, greatest at C5-6, and multilevel moderate-marked foramen narrowing.. CENTRAL CANAL: No evidence of hemorrhage. PARASPINAL AREA: No visible mass. IMPRESSION: 1. No appreciable acute abnormality. 2. Multilevel moderate and marked degenerative changes resulting in central canal and foramen narrowing. Electronically authenticated by: TEJAS CHRISTOPHER Date: 2022-05-07 14:44 Normal [facility] CT HEAD WO CONon 05-07-2022 CT HEAD WO CON EXAMINATION: CT HEAD WO CON HISTORY: Unspecified fall ; laceration to forehead COMPARISON: No relevant comparison available. TECHNIQUE: Axial CT images were obtained without IV contrast. Dose reduction techniques were achieved by using automated exposure control and/or adjustment of mA and/or kV according to patient size and/or use of iterative reconstruction technique. FINDINGS: BRAIN: No intracranial hemorrhage, hydrocephalus, or mass. Areas of decreased attenuation within the deep white matter favoring chronic small vessel ischemic changes. Small include infarction versus prominent perivascular space within the right and left basal ganglia. CSF SPACES: No hydrocephalus, subarachnoid hemorrhage, or mass. Appropriate for age. SKULL: No fracture, mass, or other significant visible lesion. SINUSES: No significant mucosal thickening or fluid on the limited views. ORBITS: No appreciable abnormality on the limited views. OTHER: Skin surface defect overlying the right forehead consistent with history of laceration. No subcutaneous hematoma or radiopaque foreign body. IMPRESSION: 1. No intracranial hemorrhage or appreciable acute abnormality. 2. Age consistent chronic changes. 3. No fracture of the calvarium or scalp hematoma. Right forehead laceration. Electronically authenticated by: TEJAS CHRISTOPHER Date: 2022-05-07 14:35 Normal [facility] Covid-19 PCR (CVDTBH)on 04-14 SARS-CoV-2 (COVID-19) RNA IRVIN+probe Ql (Unsp spec) Not detected Normal NOT DETECTED [facility] Comment on above: Result Comment: When diagnostic testing is negative, the possibility of a false negative should be considered in the context of a patient's recent exposures and the presence of clinical signs and symptoms consistent with SARS-CoV-2. This test is not yet approved or cleared by the [place] FDA. When there are no FDA-approved or cleared tests available, and other criteria are met, FDA can make tests available under an emergency access mechanism called an Emergency Use Authorization (EUA). The EUA for this test is supported by the [place] of Health and Human Service's declaration that circumstances exist to justify the emergency use of in vitro diagnostics for the detection and/or diagnosis of the virus that causes COVID-19. This EUA will remain in effect for the duration of the COVID-19 declaration justifying emergency of IVDs, unless it is terminated or revoked by the FDA (after which the test may no longer be used). Performed By: #### A CETON #### [facility] [address] [place] [address] Dr. Karmen Mccormick POINT OF CARE GLUCOSEon 04-14 Glucose [Mass/Vol] 167 mg/dL Critically high 74-106 [facility] Comment on above: Performed By: #### C VDTBH #### [facility] [address] [place] [address] Dr. Karmen Mccormick Glucose [Mass/Vol] 207 mg/dL Critically high 74-106 [facility] Comment on above: Performed By: #### B MP #### [facility] [address] [place] [address] Dr. Karmen Mccormick PROF CHEM 8 (BAS METB)on Anion gap [Moles/Vol] 12.7 mmol/L Normal [facility] Comment on above: Performed By: #### P OCGLUC #### [facility] [address] [place] [address] Dr. Karmen Mccormick Calcium [Mass/Vol] 8.9 mg/dL Normal 8.5-10.1 [facility] Comment on above: Performed By: #### P OCGLUC #### [facility] [address] [place] [address] Dr. Karmen Mccormick Chloride [Moles/Vol] 104 mmol/L Normal 98-107 [facility] Comment on above: Performed By: #### P OCGLUC #### [facility] [address] [place] [address] Dr. Karmen Mccormick CO2 [Moles/Vol] 26.5 mmol/L Normal 21.0-32.0 [facility] Comment on above: Performed By: #### P OCGLUC #### [facility] [address] [place] [address] Dr. Karmen Mccormick Creatinine [Mass/Vol] 0.95 mg/dL Normal 0.55-1.02 [facility] Comment on above: Performed By: #### P OCGLUC #### [facility] [address] [place] [address] Dr. Karmen Mccormick EGFR-AF [place] >60 Normal >=60 [facility] Comment on above: Performed By: #### P OCGLUC #### [facility] [address] [place] [address] Dr. Karmen Mccormick EGFR-NON AF [place] 58 mL/min/1.73m2 Critically low >=60 [facility] Comment on above: Performed By: #### P OCGLUC #### [facility] [address] [place] [address] [address] Karmen Mccormick Glucose [Mass/Vol] 245 mg/dL Critically high 74-106 [facility] Comment on above: Performed By: #### P OCGLUC #### [facility] [address] [place] [address] [address] Karmen Mccormick Potassium [Moles/Vol] 5.2 mmol/L Critically high 3.5-5.1 [facility] Comment on above: Performed By: #### P OCGLUC #### [facility] [address] [place] [address] [address] Karmen Mccormick Sodium [Moles/Vol] 138 mmol/L Normal 136-145 [facility] Comment on above: Performed By: #### P OCGLUC #### [facility] [address] [place] [address] [address] Karmen Mccormick Urea nitrogen [Mass/Vol] 24.0 mg/dL Critically high 7.0-18.0 [facility] Comment on above: Performed By: #### P OCGLUC #### [facility] [address] [place] [address] [address] Karmen Mccormick Urea nitrogen/Creatinine [Mass ratio] 25.3 mg/mg Normal [facility] Comment on above: Performed By: #### P OCGLUC #### [facility] [address] [place] [address] [address] Karmen Mccormick GLYCOHEMOGLOBIN A1Con 2021 ADA RECOMMENDATION SEE BELOW Normal [facility] Comment on above: Result Comment: ADA RECOMMENDED LIMIT 4.0 - 6.0 ADA THERAPEUTIC TARGET < 7.0 ACTION SUGGESTED > 7.0 Performed By: #### P OCGLUC #### [facility] [address] [place] [address] [address] Karmen Mccormick Glucose [Mass/Vol] 315 mg/dL Normal [facility] [place] Comment on above: Performed By: #### P OCGLUC #### [facility] [address] [address] [address] Karmen Mccormick HbA1c (Bld) [Mass fraction] 12.6 % Critically high 4.5-6.2 [facility] Comment on above: Performed By: #### P OCGLUC #### [facility] [address] [address] [address] Karmen Mccormick PROF CHEM 8 (BAS METB)on Anion gap [Moles/Vol] 14.9 mmol/L Normal [facility] Comment on above: Performed By: #### P OCGLUC #### [facility] [address] [address] [address] Karmen Mccormick Calcium [Mass/Vol] 8.7 mg/dL Normal 8.5-10.1 [facility] Comment on above: Performed By: #### P OCGLUC #### [facility] [address] [place] [address] [address] Karmen Mccormick Chloride [Moles/Vol] 102 mmol/L Normal 98-107 [facility] Comment on above: Performed By: #### P OCGLUC #### [facility] [address] [place] [address] [address] Karmen Mccormick CO2 [Moles/Vol] 22.7 mmol/L Normal 21.0-32.0 [facility] Comment on above: Performed By: #### P OCGLUC #### [facility] [address] [place] [address] [address] Karmen Mccormick Creatinine [Mass/Vol] 0.73 mg/dL Normal 0.55-1.02 [facility] Comment on above: Performed By: #### P OCGLUC #### [facility] [address] [place] [address] [address] Karmen Mccormick EGFR-AF [place] >60 Normal >=60 [facility] Comment on above: Performed By: #### P OCGLUC #### [facility] [address] [place] [address] [address] Karmen Mccormick EGFR-NON AF [place] >60 Normal >=60 [facility] Comment on above: Performed By: #### P OCGLUC #### [facility] [address] [place] [address] [address] Karmen Mccormick Glucose [Mass/Vol] 290 mg/dL Critically high 74-106 [facility] Comment on above: Performed By: #### P OCGLUC #### [facility] [address] [address] [address] Karmen Mccormick Potassium [Moles/Vol] 4.6 mmol/L Normal 3.5-5.1 [facility] Comment on above: Performed By: #### P OCGLUC #### [facility] [address] [place] [address] [address] Karmen Mccormick Sodium [Moles/Vol] 135 mmol/L Critically low 136-145 [facility] Comment on above: Performed By: #### P OCGLUC #### [facility] [address] [place] [address] Dr. Karmen Mccormick Urea nitrogen [Mass/Vol] 17.0 mg/dL Normal 7.0-18.0 [facility] Comment on above: Performed By: #### P OCGLUC #### [facility] [address] [place] [address] [address] Karmen Mccormick Urea nitrogen/Creatinine [Mass ratio] 23.3 mg/mg Normal [facility] Comment on above: Performed By: #### P OCGLUC #### [facility] [address] [place] [address] Dr. Karmen Mccormick CBC AUTO DIFFon 04-09-2022 BASO # 0.1 103/ul Normal 0.0-0.1 [facility] Comment on above: Performed By: #### P OCGLUC #### [facility] [address] [place] [address] [address] Karmen Mccormick Basophils/100 WBC (Bld) 0.8 % Normal 0.2-2.0 [facility] Comment on above: Performed By: #### P OCGLUC #### [facility] [address] [place] [address] [address] Karmen Mccormick EO # 0.2 103/ul Normal 0.0-0.7 [facility] Comment on above: Performed By: #### P OCGLUC #### [facility] [address] [place] [address] [address] Karmen Mccormick Eosinophils/100 WBC (Bld) 2.5 % Normal 0.9-7.0 [facility] Comment on above: Performed By: #### P OCGLUC #### [facility] [address] [place] [address] Dr. Karmen Mccormick Erythrocyte distribution width (RBC) [Ratio] 13.2 % Normal 11.0-15.0 [facility] Comment on above: Performed By: #### P OCGLUC #### [facility] [address] [place] [address] Dr. Karmen Mccormick Hematocrit (Bld) [Volume fraction] 33.9 % Critically low 36.0-48.0 [facility] Comment on above: Performed By: #### P OCGLUC #### [facility] [address] [place] [address] Dr. Karmen Mccormick Hemoglobin (Bld) [Mass/Vol] 11.5 g/dL Critically low 12.0-16.0 [facility] Comment on above: Performed By: #### P OCGLUC #### [facility] [address] [place] [address] Dr. Karmen Mccormick IG # 0.04 10e3/ul Critically high 0.00-0.03 [facility] Comment on above: Performed By: #### P OCGLUC #### [facility] [address] [place] [address] Dr. Karmen Mccormick IG % 0.5 % Normal 0.0-0.5 [facility] Comment on above: Performed By: #### P OCGLUC #### [facility] [address] [place] [address] Dr. Karmen Mccormick LYMPH # 1.8 103/ul Normal 1.2-3.8 [facility] Comment on above: Performed By: #### P OCGLUC #### [facility] [address] [place] [address] Dr. Karmen Mccormick Lymphocytes/100 WBC (Bld) 20.2 % Critically low 20.5-60.0 [facility] Comment on above: Performed By: #### P OCGLUC #### [facility] [address] [place] [address] [address] Karmen Mccormick MANUAL DIFF REQ NO Normal [facility] Comment on above: Performed By: #### P OCGLUC #### [facility] [address] [place] [address] [address] Karmen Mccormick MCH (RBC) [Entitic mass] 29.3 pg Normal 26.7-34.0 [facility] Comment on above: Performed By: #### P OCGLUC #### [facility] [address] [place] [address] [address] Karmen Mccormick MCHC (RBC) [Mass/Vol] 33.9 g/dL Normal 29.9-35.2 [facility] Comment on above: Performed By: #### P OCGLUC #### [facility] [address] [place] [address] Dr. Karmen Mccormick MCV (RBC) [Entitic vol] 86.3 fL Normal 81.0-99.0 [facility] Comment on above: Performed By: #### P OCGLUC #### [facility] [address] [place] [address] [address] Karmen Mccormick MONO # 0.5 103/ul Normal 0.3-0.8 [facility] Comment on above: Performed By: #### P OCGLUC #### [facility] [address] [place] [address] Dr. Karmen Mccormick Monocytes/100 WBC (Bld) 6.1 % Normal 1.7-12.0 [facility] Comment on above: Performed By: #### P OCGLUC #### [facility] [address] [place] [address] [address] Karmen Mccormick NEUT # 6.1 103/ul Normal 1.4-6.5 [facility] Comment on above: Performed By: #### P OCGLUC #### [facility] [address] [place] [address] Dr. Karmen Mccormick Neutrophils/100 WBC (Bld) 69.9 % Normal 43.0-75.0 [facility] Comment on above: Performed By: #### P OCGLUC #### [facility] [address] [place] [address] [address] Karmen Mccormick Platelet mean volume (Bld) [Entitic vol] 9.5 fL Normal 9.5-13.5 [facility] Comment on above: Performed By: #### P OCGLUC #### [facility] [address] [place] [address] [address] Karmen Mccormick PLT 335 103/ul Normal 150-450 [facility] Comment on above: Performed By: #### P OCGLUC #### [facility] [address] [place] [address] [address] Karmen Mccormick RBC 3.93 106/ul Critically low 4.20-5.40 [facility] Comment on above: Performed By: #### P OCGLUC #### [facility] [address] [address] [address] Karmen Mccormick WBC 8.8 103/ul Normal 4.0-11.0 [facility] Comment on above: Performed By: #### P OCGLUC #### [facility] [address] [address] [address] Karmen Mccormick CRPon 04-09-2022 CRP [Mass/Vol] mg/L Normal <=1.0 [facility] Comment on above: Performed By: #### P OCGLUC #### [facility] [address] [address] [address] Karmen Mccormick PROF 14(COMP METB)on 022 Albumin [Mass/Vol] 3.1 g/dL Critically low 3.4-5.0 [facility] Comment on above: Performed By: #### P OCGLUC #### [facility] [address] [address] [address] Karmen Mccormick Albumin/Globulin [Mass ratio] 0.9 {ratio} Normal [facility] Comment on above: Performed By: #### P OCGLUC #### [facility] [address] [address] [address] Karmen Mccormick ALP [Catalytic activity/Vol] 86 U/L Normal 46-116 [facility] Comment on above: Performed By: #### P OCGLUC #### [facility] [address] [address] [address] Karmen Mccormick ALT [Catalytic activity/Vol] 23 U/L Normal 14-59 [facility] Comment on above: Performed By: #### P OCGLUC #### [facility] [address] [address] [address] Karmen Mccormick Anion gap [Moles/Vol] 14.5 mmol/L Normal [facility] Comment on above: Performed By: #### P OCGLUC #### [facility] [address] [address] [address] Karmen Mccormick AST [Catalytic activity/Vol] 11 U/L Critically low 15-37 [facility] Comment on above: Performed By: #### P OCGLUC #### [facility] [address] [address] [address] Karmen Mccormick Bilirubin [Mass/Vol] 0.3 mg/dL Normal 0.2-1.0 [facility] Comment on above: Performed By: #### P OCGLUC #### [facility] [address] [address] [address] Karmen Mccormick Calcium [Mass/Vol] 8.8 mg/dL Normal 8.5-10.1 [facility] Comment on above: Performed By: #### P OCGLUC #### [facility] [address] [address] [address] Karmen Mccormick Chloride [Moles/Vol] 96 mmol/L Critically low 98-107 [facility] Comment on above: Performed By: #### P OCGLUC #### [facility] [address] [address] [address] Karmen Mccormick CO2 [Moles/Vol] 24.5 mmol/L Normal 21.0-32.0 [facility] Comment on above: Performed By: #### P OCGLUC #### [facility] [address] [address] [address] Karmen Mccormick Creatinine [Mass/Vol] 0.88 mg/dL Normal 0.55-1.02 [facility] Comment on above: Performed By: #### P OCGLUC #### [facility] [address] [address] [address] Karmen Mccormick EGFR-AF [place] >60 Normal >=60 [facility] Comment on above: Performed By: #### P OCGLUC #### [facility] [address] [address] [address] Karmen Mccormick EGFR-NON AF [place] >60 Normal >=60 [facility] Comment on above: Performed By: #### P OCGLUC #### [facility] [address] [address] [address] Karmen Mccormick Globulin (S) [Mass/Vol] 3.6 g/dL Normal [facility] Comment on above: Performed By: #### P OCGLUC #### [facility] [address] [address] [address] Karmen Mccormick Glucose [Mass/Vol] 479 mg/dL Critically high 74-106 [facility] Comment on above: Performed By: #### P OCGLUC #### [facility] [address] [address] [address] Karmen Mccormick Potassium [Moles/Vol] 5.0 mmol/L Normal 3.5-5.1 [facility] Comment on above: Performed By: #### P OCGLUC #### [facility] [address] [address] [address] Karmen Mccormick Protein [Mass/Vol] 6.7 g/dL Normal 6.4-8.2 [facility] Comment on above: Performed By: #### P OCGLUC #### [facility] [address] [address] [address] Karmen Mccormick Sodium [Moles/Vol] 130 mmol/L Critically low 136-145 [facility] Comment on above: Performed By: #### P OCGLUC #### [facility] [address] [address] [address] Karmen Mccormick Urea nitrogen [Mass/Vol] 18.0 mg/dL Normal 7.0-18.0 [facility] Comment on above: Performed By: #### P OCGLUC #### [facility] [address] [address] [address] Karmen Mccormick Urea nitrogen/Creatinine [Mass ratio] 20.5 mg/mg Normal [facility] Comment on above: Performed By: #### P OCGLUC #### [facility] [address] [address] [address] Karmen Mccormick SED RATE WESTERGRENon 2021 SED RATE 33 mm/hr Critically high <=30 [facility] Comment on above: Performed By: #### P OCGLUC #### [facility] [address] [place] [address] Dr. Karmen Mccormick CBC AUTO DIFFon 04-02-2022 BASO # 0.0 103/ul Normal 0.0-0.1 [facility] Comment on above: Performed By: #### P OCGLUC #### [facility] [address] [place] [address] Dr. Karmen Mccormick Basophils/100 WBC (Bld) 0.5 % Normal 0.2-2.0 [facility] Comment on above: Performed By: #### P OCGLUC #### [facility] [address] [place] [address] Dr. Karmen Mccormick EO # 0.4 103/ul Normal 0.0-0.7 [facility] Comment on above: Performed By: #### P OCGLUC #### [facility] [address] [place] [address] Dr. Karmen Mccormick Eosinophils/100 WBC (Bld) 4.4 % Normal 0.9-7.0 [facility] Comment on above: Performed By: #### P OCGLUC #### [facility] [address] [place] [address] Dr. Karmen Mccormick Erythrocyte distribution width (RBC) [Ratio] 13.2 % Normal 11.0-15.0 [facility] Comment on above: Performed By: #### P OCGLUC #### [facility] [address] [place] [address] Dr. Karmen Mccormick Hematocrit (Bld) [Volume fraction] 32.4 % Critically low 36.0-48.0 [facility] Comment on above: Performed By: #### P OCGLUC #### [facility] [address] [address] [address] Karmen Mccormick Hemoglobin (Bld) [Mass/Vol] 10.3 g/dL Critically low 12.0-16.0 [facility] Comment on above: Performed By: #### P OCGLUC #### [facility] [address] [address] [address] Karmen Mccormick IG # 0.04 10e3/ul Critically high 0.00-0.03 [facility] Comment on above: Performed By: #### P OCGLUC #### [facility] [address] [address] [address] Karmen Mccormick IG % 0.5 % Normal 0.0-0.5 [facility] Comment on above: Performed By: #### P OCGLUC #### [facility] [address] [address] [address] Karmen Mccormick LYMPH # 1.9 103/ul Normal 1.2-3.8 [facility] Comment on above: Performed By: #### P OCGLUC #### [facility] [address] [address] [address] Karmen Mccormick Lymphocytes/100 WBC (Bld) 23.2 % Normal 20.5-60.0 [facility] Comment on above: Performed By: #### P OCGLUC #### [facility] [address] [address] [address] Karmen Mccormick MANUAL DIFF REQ NO Normal [facility] Comment on above: Performed By: #### P OCGLUC #### [facility] [address] [address] [address] Karmen Mccormick MCH (RBC) [Entitic mass] 29.0 pg Normal 26.7-34.0 [facility] Comment on above: Performed By: #### P OCGLUC #### [facility] [address] [place] [address] Dr. Karmen Mccormick MCHC (RBC) [Mass/Vol] 31.8 g/dL Normal 29.9-35.2 [facility] Comment on above: Performed By: #### P OCGLUC #### [facility] [address] [address] [address] Karmen Mccormick MCV (RBC) [Entitic vol] 91.3 fL Normal 81.0-99.0 [facility] Comment on above: Performed By: #### P OCGLUC #### [facility] [address] [address] [address] Karmen Mccormick MONO # 0.6 103/ul Normal 0.3-0.8 [facility] Comment on above: Performed By: #### P OCGLUC #### [facility] [address] [place] [address] Dr. Karmen Mccormick Monocytes/100 WBC (Bld) 7.2 % Normal 1.7-12.0 [facility] Comment on above: Performed By: #### P OCGLUC #### [facility] [address] [place] [address] Dr. Karmen Mccormick NEUT # 5.2 103/ul Normal 1.4-6.5 [facility] Comment on above: Performed By: #### P OCGLUC #### [facility] [address] [place] [address] Dr. Karmen Mccormick Neutrophils/100 WBC (Bld) 64.2 % Normal 43.0-75.0 [facility] Comment on above: Performed By: #### P OCGLUC #### [facility] [address] [place] [address] Dr. Karmen Mccormick Platelet mean volume (Bld) [Entitic vol] 9.3 fL Critically low 9.5-13.5 [facility] Comment on above: Performed By: #### P OCGLUC #### [facility] [address] [place] [address] Dr. Karmen Mccormick PLT 236 103/ul Normal 150-450 [facility] Comment on above: Performed By: #### P OCGLUC #### [facility] [address] [place] [address] Dr. Karmen Mccormick RBC 3.55 106/ul Critically low 4.20-5.40 [facility] Comment on above: Performed By: #### P OCGLUC #### [facility] [address] [address] [address] Karmen Mccormick WBC 8.2 103/ul Normal 4.0-11.0 [facility] Comment on above: Performed By: #### P OCGLUC #### [facility] [address] [address] [address] Karmen Mccormick PROF 14(COMP METB)on 022 Albumin [Mass/Vol] 2.2 g/dL Critically low 3.4-5.0 Th [facility] Comment on above: Performed By: #### P OCGLUC #### [facility] [address] [address] [address] Karmen Mccormick Albumin/Globulin [Mass ratio] 0.7 {ratio} Normal [facility] Comment on above: Performed By: #### P OCGLUC #### [facility] [address] [address] [address] Karmen Mccormick ALP [Catalytic activity/Vol] 71 U/L Normal 46-116 [facility] Comment on above: Performed By: #### P OCGLUC #### [facility] [address] [address] [address] Karmen Mccormick ALT [Catalytic activity/Vol] 12 U/L Critically low 14-59 [facility] Comment on above: Performed By: #### P OCGLUC #### [facility] [address] [address] [address] Karmen Mccormick Anion gap [Moles/Vol] 8.7 mmol/L Normal [facility] Comment on above: Performed By: #### P OCGLUC #### [facility] [address] [address] [address] Karmen Mccormick AST [Catalytic activity/Vol] 15 U/L Normal 15-37 [facility] Comment on above: Performed By: #### P OCGLUC #### [facility] [address] [place] [address] Dr. Karmen Mccormick Bilirubin [Mass/Vol] 0.2 mg/dL Normal 0.2-1.0 [facility] Comment on above: Performed By: #### P OCGLUC #### [facility] [address] [address] [address] Karmen Mccormick Calcium [Mass/Vol] 8.2 mg/dL Critically low 8.5-10.1 Th [facility] Comment on above: Performed By: #### P OCGLUC #### [facility] [address] [address] [address] Karmen Mccormick Chloride [Moles/Vol] 107 mmol/L Normal 98-107 [facility] Comment on above: Performed By: #### P OCGLUC #### [facility] [address] [address] [address] Karmen Mccormick CO2 [Moles/Vol] 24.6 mmol/L Normal 21.0-32.0 [facility] Comment on above: Performed By: #### P OCGLUC #### [facility] [address] [address] [address] Karmen Mccormick Creatinine [Mass/Vol] 0.62 mg/dL Normal 0.55-1.02 [facility] Comment on above: Performed By: #### P OCGLUC #### [facility] [address] [address] [address] Karmen Mccormick EGFR-AF [place] >60 Normal >=60 [facility] Comment on above: Performed By: #### P OCGLUC #### [facility] [address] [address] [address] Karmen Mccormick EGFR-NON AF [place] >60 Normal >=60 [facility] Comment on above: Performed By: #### P OCGLUC #### [facility] [address] [address] [address] Karmen Mccormick Globulin (S) [Mass/Vol] 3.0 g/dL Normal [facility] Comment on above: Performed By: #### P OCGLUC #### [facility] [address] [address] [address] Karmen Mccormick Glucose [Mass/Vol] 263 mg/dL Critically high 74-106 [facility] Comment on above: Performed By: #### P OCGLUC #### [facility] [address] [address] [address] Karmen Mccormick Potassium [Moles/Vol] 3.3 mmol/L Critically low 3.5-5.1 [facility] Comment on above: Performed By: #### P OCGLUC #### [facility] [address] [place] [address] Dr. Karmen Mccormick Protein [Mass/Vol] 5.2 g/dL Critically low 6.4-8.2 Th [facility] Comment on above: Performed By: #### P OCGLUC #### [facility] [address] [place] [address] Dr. Karmen Mccormick Sodium [Moles/Vol] 137 mmol/L Normal 136-145 [facility] Comment on above: Performed By: #### P OCGLUC #### [facility] [address] [place] [address] Dr. Karmen Mccormick Urea nitrogen [Mass/Vol] 10.0 mg/dL Normal 7.0-18.0 [facility] Comment on above: Performed By: #### P OCGLUC #### [facility] [address] [place] [address] Dr. Karmen Mccormick Urea nitrogen/Creatinine [Mass ratio] 16.1 mg/mg Normal [facility] Comment on above: Performed By: #### P OCGLUC #### [facility] [address] [place] [address] Dr. Karmen Mccormick CBC AUTO DIFFon 04-01-2022 BASO # 0.0 103/ul Normal 0.0-0.1 [facility] Comment on above: Performed By: #### B MP #### [facility] [address] [place] [address] Dr. Karmen Mccormick Basophils/100 WBC (Bld) 0.4 % Normal 0.2-2.0 [facility] Comment on above: Performed By: #### B MP #### [facility] [address] [place] [address] Dr. Karmen Mccormick EO # 0.3 103/ul Normal 0.0-0.7 [facility] Comment on above: Performed By: #### B MP #### [facility] [address] [place] [address] Dr. Karmen Mccormick Eosinophils/100 WBC (Bld) 3.9 % Normal 0.9-7.0 [facility] Comment on above: Performed By: #### B MP #### [facility] [address] [place] [address] Dr. Karmen Mccormick Erythrocyte distribution width (RBC) [Ratio] 13.4 % Normal 11.0-15.0 [facility] Comment on above: Performed By: #### B MP #### [facility] [address] [place] [address] Dr. Karmen Mccormick Hematocrit (Bld) [Volume fraction] 33.3 % Critically low 36.0-48.0 [facility] Comment on above: Performed By: #### B MP #### [facility] [address] [place] [address] Dr. Karmen Mccormick Hemoglobin (Bld) [Mass/Vol] 11.1 g/dL Critically low 12.0-16.0 [facility] Comment on above: Performed By: #### B MP #### [facility] [address] [place] [address] Dr. Karemn Mccormick IG # 0.04 10e3/ul Critically high 0.00-0.03 [facility] Comment on above: Performed By: #### B MP #### [facility] [address] [place] [address] Dr. Karmen Mccormick IG % 0.5 % Normal 0.0-0.5 [facility] Comment on above: Performed By: #### B MP #### [facility] [address] [place] [address] Dr. Karmen Mccormick LYMPH # 2.5 103/ul Normal 1.2-3.8 [facility] Comment on above: Performed By: #### B MP #### [facility] [address] [place] [address] Dr. Karmen Mccormick Lymphocytes/100 WBC (Bld) 33.2 % Normal 20.5-60.0 [facility] Comment on above: Performed By: #### B MP #### [facility] [address] [place] [address] Dr. Karmen Mccormick MANUAL DIFF REQ NO Normal [facility] Comment on above: Performed By: #### B MP #### [facility] [address] [place] [address] Dr. Karmen Mccormick MCH (RBC) [Entitic mass] 29.4 pg Normal 26.7-34.0 [facility] Comment on above: Performed By: #### B MP #### [facility] [address] [place] [address] Dr. Karmen Mccormick MCHC (RBC) [Mass/Vol] 33.3 g/dL Normal 29.9-35.2 [facility] Comment on above: Performed By: #### B MP #### [facility] [address] [place] [address] Dr. Karmen Mccormick MCV (RBC) [Entitic vol] 88.3 fL Normal 81.0-99.0 [facility] Comment on above: Performed By: #### B MP #### [facility] [address] [place] [address] Dr. Karmen Mccormick MONO # 0.6 103/ul Normal 0.3-0.8 [facility] Comment on above: Performed By: #### B MP #### [facility] [address] [place] [address] Dr. Karmen Mccormick Monocytes/100 WBC (Bld) 8.3 % Normal 1.7-12.0 [facility] Comment on above: Performed By: #### B MP #### [facility] [address] [place] [address] Dr. Karmen Mccormick NEUT # 4.0 103/ul Normal 1.4-6.5 [facility] Comment on above: Performed By: #### B MP #### [facility] [address] [place] [address] Dr. Karmen Mccormick Neutrophils/100 WBC (Bld) 53.7 % Normal 43.0-75.0 [facility] Comment on above: Performed By: #### B MP #### [facility] [address] [address] [address] Karmen Mccormick Platelet mean volume (Bld) [Entitic vol] 10.1 fL Normal 9.5-13.5 [facility] Comment on above: Performed By: #### B MP #### [facility] [address] [address] [address] Karmen Mccormick PLT 222 103/ul Normal 150-450 [facility] Comment on above: Performed By: #### B MP #### [facility] [address] [address] [address] Karmen Mccormick RBC 3.77 106/ul Critically low 4.20-5.40 [facility] Comment on above: Performed By: #### B MP #### [facility] [address] [place] [address] Dr. Karmen Mccormick WBC 7.5 103/ul Normal 4.0-11.0 [facility] Comment on above: Performed By: #### B MP #### [facility] [address] [place] [address] Dr. Karmen Mccormick H PYLORI ANTIBODY IGGon 03-14 H. PYLORI IGG ABS 0.22 Index Value Normal 0.00-0.79 [facility] Comment on above: Result Comment: Nega tive <0.80 Equivocal 0.80 - 0.89 Positive >0.89 Performed By: #### P OCGLUC #### [facility] [address] [place] [address] Dr. Karmen Mccormick POINT OF CARE GLUCOSEon 03-14 Glucose [Mass/Vol] 187 mg/dL Critically high 74-106 [facility] Comment on above: Performed By: #### P OCGLUC #### [facility] [address] [place] [address] Dr. Karmen Mccormick Glucose [Mass/Vol] 200 mg/dL Critically high 74-106 [facility] Comment on above: Performed By: #### P OCGLUC #### [facility] [address] [place] [address] Dr. Karmen Mccormick Glucose [Mass/Vol] 173 mg/dL Critically high 74-106 [facility] Comment on above: Performed By: #### P OCGLUC #### [facility] [address] [place] [address] Dr. Karmen Mccormick PROF 14(COMP METB)on 022 Albumin [Mass/Vol] 2.1 g/dL Critically low 3.4-5.0 [facility] Comment on above: Performed By: #### P OCGLUC #### [facility] [address] [place] [address] Dr. Karmen Mccormick Albumin/Globulin [Mass ratio] 0.7 {ratio} Normal [facility] Comment on above: Performed By: #### P OCGLUC #### [facility] [address] [place] [address] Dr. Karmen Mccormick ALP [Catalytic activity/Vol] 70 U/L Normal 46-116 [facility] Comment on above: Performed By: #### P OCGLUC #### [facility] [address] [place] [address] Dr. Karmen Mccormick ALT [Catalytic activity/Vol] 14 U/L Normal 14-59 [facility] Comment on above: Performed By: #### P OCGLUC #### [facility] [address] [place] [address] Dr. Kramen Mccormick Anion gap [Moles/Vol] 12.9 mmol/L Normal [facility] Comment on above: Performed By: #### P OCGLUC #### [facility] [address] [place] [address] Dr. Karmen Mccormick AST [Catalytic activity/Vol] 23 U/L Normal 15-37 [facility] Comment on above: Performed By: #### P OCGLUC #### [facility] [address] [place] [address] Dr. Karmen Mccormick Bilirubin [Mass/Vol] 0.4 mg/dL Normal 0.2-1.0 [facility] Comment on above: Performed By: #### P OCGLUC #### [facility] [address] [place] [address] Dr. Karmen Mccormick Calcium [Mass/Vol] 8.1 mg/dL Critically low 8.5-10.1 Th [facility] Comment on above: Performed By: #### P OCGLUC #### [facility] [address] [address] [address] Karmen Mccormick Chloride [Moles/Vol] 107 mmol/L Normal 98-107 [facility] Comment on above: Performed By: #### P OCGLUC #### [facility] [address] [address] [address] Karmen Mccormick CO2 [Moles/Vol] 20.8 mmol/L Critically low 21.0-32.0 [facility] Comment on above: Performed By: #### P OCGLUC #### [facility] [address] [place] [address] Dr. Karmen Mccormick Creatinine [Mass/Vol] 0.79 mg/dL Normal 0.55-1.02 [facility] Comment on above: Performed By: #### P OCGLUC #### [facility] [address] [address] [address] Karmen Mccormick EGFR-AF [place] >60 Normal >=60 [facility] Comment on above: Performed By: #### P OCGLUC #### [facility] [address] [place] [address] Dr. Karmen Mccormick EGFR-NON AF [place] >60 Normal >=60 [facility] Comment on above: Performed By: #### P OCGLUC #### [facility] [address] [address] [address] Karmen Mccormick Globulin (S) [Mass/Vol] 3.1 g/dL Normal [facility] Comment on above: Performed By: #### P OCGLUC #### [facility] [address] [address] [address] Karmen Mccormick Glucose [Mass/Vol] 226 mg/dL Critically high 74-106 [facility] Comment on above: Performed By: #### P OCGLUC #### [facility] [address] [place] [address] Dr. Karmen Mccormick Potassium [Moles/Vol] 3.7 mmol/L Normal 3.5-5.1 [facility] Comment on above: Performed By: #### P OCGLUC #### [facility] [address] [address] [address] Karmen Mccormick Protein [Mass/Vol] 5.2 g/dL Critically low 6.4-8.2 Th [facility] Comment on above: Performed By: #### P OCGLUC #### [facility] [address] [address] [address] Karmen Mccormick Sodium [Moles/Vol] 137 mmol/L Normal 136-145 [facility] Comment on above: Performed By: #### P OCGLUC #### [facility] [address] [address] [address] Karmen Mccormick Urea nitrogen [Mass/Vol] 9.0 mg/dL Normal 7.0-18.0 [facility] Comment on above: Performed By: #### P OCGLUC #### [facility] [address] [place] [address] Dr. Karmen Mccormick Urea nitrogen/Creatinine [Mass ratio] 11.4 mg/mg Normal [facility] Comment on above: Performed By: #### P OCGLUC #### [facility] [address] [place] [address] Dr. Karmen Mccormick WOUND CULTUREon 04-01-2022 Antimicrobial Susceptibility Comment Normal [facility] Comment on above: Result Comment: S = Susceptible; I = Intermediate; R = Resistant P = Positive; N = Negative MICS are expressed in micrograms per mL Antibiotic RSLT#1 RSLT#2 RSLT#3 RSLT#4 Ciprofloxacin R Clindamycin S Erythromycin R Gentamicin S Levofloxacin I Linezolid S Oxacillin R Penicillin R Rifampin S Tetracycline S Trimethoprim/Sulfa S Vancomycin S Performed By: #### C BC #### [facility] [address] [place] [address] Dr. Karmen Mccormick Bacteria identified Aer cx Nom (Unsp spec) Final report Abnormal [facility] Comment on above: Performed By: #### C BC #### [facility] [address] [place] [address] Dr. Karmen Mccormick Result 1 Comment Abnormal [facility] Comment on above: Result Comment: Meth icillin - resistant Staphylococcus aureus Based on resistance to oxacillin this isolate would be resistant to all currently available beta-lactam antimicrobial agents, with the exception of the newer cephalosporins with anti-MRSA activity, such as Ceftaroline Heavy growth Performed By: #### C BC #### [facility] [address] [place] [address] Dr. Karmen Mccormick Result 2 Mixed skin alexis Normal [facility] Comment on above: Result Comment: [place] y growth Performed By: #### C BC #### [facility] [address] [place] [address] Dr. Karmen Mccormick CBC AUTO DIFFon 03-31-2022 BASO # 0.0 103/ul Normal 0.0-0.1 [facility] Comment on above: Performed By: #### P OCGLUC #### [facility] [address] [place] [address] Dr. Karmen Mccormick Basophils/100 WBC (Bld) 0.4 % Normal 0.2-2.0 [facility] Comment on above: Performed By: #### P OCGLUC #### [facility] [address] [place] [address] Dr. Karmen Mccormick EO # 0.2 103/ul Normal 0.0-0.7 [facility] Comment on above: Performed By: #### P OCGLUC #### [facility] [address] [place] [address] Dr. Karmen Mccormick Eosinophils/100 WBC (Bld) 2.4 % Normal 0.9-7.0 [facility] Comment on above: Performed By: #### P OCGLUC #### [facility] [address] [place] [address] Dr. Karmen Mccormick Erythrocyte distribution width (RBC) [Ratio] 13.2 % Normal 11.0-15.0 [facility] Comment on above: Performed By: #### P OCGLUC #### [facility] [address] [place] [address] Dr. Karmen Mccormick Hematocrit (Bld) [Volume fraction] 39.1 % Normal 36.0-48.0 [facility] Comment on above: Performed By: #### P OCGLUC #### [facility] [address] [address] [address] Kamren Mccormick Hemoglobin (Bld) [Mass/Vol] 12.7 g/dL Normal 12.0-16.0 [facility] Comment on above: Performed By: #### P OCGLUC #### [facility] [address] [address] [address] Karmen Mccormick IG # 0.04 10e3/ul Critically high 0.00-0.03 [facility] Comment on above: Performed By: #### P OCGLUC #### [facility] [address] [address] [address] Karmen Mccormick IG % 0.4 % Normal 0.0-0.5 [facility] Comment on above: Performed By: #### P OCGLUC #### [facility] [address] [place] [address] Dr. Karmen Mccormick LYMPH # 3.1 103/ul Normal 1.2-3.8 [facility] Comment on above: Performed By: #### P OCGLUC #### [facility] [address] [address] [address] Karmen Mccormick Lymphocytes/100 WBC (Bld) 32.3 % Normal 20.5-60.0 [facility] Comment on above: Performed By: #### P OCGLUC #### [facility] [address] [place] [address] Dr. Karmen Mccormick MANUAL DIFF REQ NO Normal [facility] Comment on above: Performed By: #### P OCGLUC #### [facility] [address] [address] [address] Karmen Mccormick MCH (RBC) [Entitic mass] 29.3 pg Normal 26.7-34.0 [facility] Comment on above: Performed By: #### P OCGLUC #### [facility] [address] [address] [address] Karmen Mccormick MCHC (RBC) [Mass/Vol] 32.5 g/dL Normal 29.9-35.2 [facility] Comment on above: Performed By: #### P OCGLUC #### [facility] [address] [address] [address] Karmen Mccormick MCV (RBC) [Entitic vol] 90.3 fL Normal 81.0-99.0 [facility] Comment on above: Performed By: #### P OCGLUC #### [facility] [address] [address] [address] Karmen Mccormick MONO # 0.9 103/ul Critically high 0.3-0.8 [facility] Comment on above: Performed By: #### P OCGLUC #### [facility] [address] [place] [address] Dr. Karmen Mccormick Monocytes/100 WBC (Bld) 8.9 % Normal 1.7-12.0 [facility] Comment on above: Performed By: #### P OCGLUC #### [facility] [address] [place] [address] Dr. Karmen Mccormick NEUT # 5.3 103/ul Normal 1.4-6.5 [facility] Comment on above: Performed By: #### P OCGLUC #### [facility] [address] [place] [address] Dr. Karmen Mccormick Neutrophils/100 WBC (Bld) 55.6 % Normal 43.0-75.0 [facility] Comment on above: Performed By: #### P OCGLUC #### [facility] [address] [place] [address] Dr. Karmen Mccormick Platelet mean volume (Bld) [Entitic vol] 10.0 fL Normal 9.5-13.5 [facility] Comment on above: Performed By: #### P OCGLUC #### [facility] [address] [place] [address] Dr. Karmen Mccormick PLT 278 103/ul Normal 150-450 [facility] Comment on above: Performed By: #### P OCGLUC #### [facility] [address] [place] [address] Dr. Karmen Mccormick RBC 4.33 106/ul Normal 4.20-5.40 [facility] Comment on above: Performed By: #### P OCGLUC #### [facility] [address] [address] [address] Karmen Mccormick WBC 9.5 103/ul Normal 4.0-11.0 [facility] Comment on above: Performed By: #### P OCGLUC #### [facility] [address] [address] [address] Karmen Mccormick POINT OF CARE GLUCOSEon 03-13 Glucose [Mass/Vol] 130 mg/dL Critically high [address] [place] [address] Comment on above: Performed By: #### P OCGLUC #### [facility] [address] [address] [address] Karmen Mccormick Glucose [Mass/Vol] 153 mg/dL Critically high [address] [place] [address] Comment on above: Performed By: #### A CETON #### [facility] [address] [address] [address] Karmen Mccormick Glucose [Mass/Vol] 195 mg/dL Critically high [address] [place] [address] Comment on above: Performed By: #### B MP #### [facility] [address] [address] [address] Karmen Mccormick Glucose [Mass/Vol] 163 mg/dL Critically high [address] [place] [address] Comment on above: Performed By: #### A CETON #### [facility] [address] [address] [address] Karmen Mccormick Glucose [Mass/Vol] 88 mg/dL Normal 74-106 [facility] Comment on above: Performed By: #### B MP #### [facility] [address] [address] [address] Karmen Mccormick Glucose [Mass/Vol] 145 mg/dL Critically high [address] [place] [address] Comment on above: Performed By: #### A CETON #### [facility] [address] [address] [address] Karmen Mccormick Glucose [Mass/Vol] 117 mg/dL Critically high [address] [place] [address] Comment on above: Performed By: #### C BC #### [facility] [address] [address] [address] Karmen Mccormick Glucose [Mass/Vol] 146 mg/dL Critically high 74-106 [facility] Comment on above: Performed By: #### C VDTBH #### [facility] [address] [place] [address] Dr. Karmen Mccormick PROF 14(COMP METB)on 022 Albumin [Mass/Vol] 2.4 g/dL Critically low 3.4-5.0 [facility] Comment on above: Performed By: #### P OCGLUC #### [facility] [address] [place] [address] Dr. Karmen Mccormick Albumin/Globulin [Mass ratio] 0.7 {ratio} Normal [facility] Comment on above: Performed By: #### P OCGLUC #### [facility] [address] [place] [address] Dr. Karmen Mccormick ALP [Catalytic activity/Vol] 83 U/L Normal 46-116 [facility] Comment on above: Performed By: #### P OCGLUC #### [facility] [address] [place] [address] Dr. Karmen Mccormick ALT [Catalytic activity/Vol] 14 U/L Normal 14-59 [facility] Comment on above: Performed By: #### P OCGLUC #### [facility] [address] [place] [address] Dr. Karmen Mccormick Anion gap [Moles/Vol] 12.2 mmol/L Normal [facility] Comment on above: Performed By: #### P OCGLUC #### [facility] [address] [place] [address] Dr. Karmen Mccormick AST [Catalytic activity/Vol] 20 U/L Normal 15-37 [facility] Comment on above: Performed By: #### P OCGLUC #### [facility] [address] [place] [address] Dr. Karmen Mccormick Bilirubin [Mass/Vol] 0.4 mg/dL Normal 0.2-1.0 [facility] Comment on above: Performed By: #### P OCGLUC #### [facility] [address] [address] [address] Karmen Mccormick Calcium [Mass/Vol] 8.4 mg/dL Critically low 8.5-10.1 Th [facility] Comment on above: Performed By: #### P OCGLUC #### [facility] [address] [address] [address] Karmen Mccormick Chloride [Moles/Vol] 110 mmol/L Critically high 98-107 [facility] Comment on above: Performed By: #### P OCGLUC #### [facility] [address] [place] [address] Dr. Karmen Mccormick CO2 [Moles/Vol] 21.5 mmol/L Normal 21.0-32.0 [facility] Comment on above: Performed By: #### P OCGLUC #### [facility] [address] [place] [address] Dr. Karmen Mccormick Creatinine [Mass/Vol] 0.63 mg/dL Normal 0.55-1.02 [facility] Comment on above: Performed By: #### P OCGLUC #### [facility] [address] [address] [address] Karmen Mccormick EGFR-AF [place] >60 Normal >=60 [facility] Comment on above: Performed By: #### P OCGLUC #### [facility] [address] [place] [address] Dr. Karmen Mccormick EGFR-NON AF [place] >60 Normal >=60 [facility] Comment on above: Performed By: #### P OCGLUC #### [facility] [address] [address] [address] Karmen Mccormick Globulin (S) [Mass/Vol] 3.5 g/dL Normal [facility] Comment on above: Performed By: #### P OCGLUC #### [facility] [address] [place] [address] Dr. Karmen Mccormick Glucose [Mass/Vol] 121 mg/dL Critically high 74-106 [facility] Comment on above: Performed By: #### P OCGLUC #### [facility] [address] [place] [address] Dr. Karmen Mccormick Potassium [Moles/Vol] 3.7 mmol/L Normal 3.5-5.1 [facility] Comment on above: Performed By: #### P OCGLUC #### [facility] [address] [address] [address] Karmen Mccormick Protein [Mass/Vol] 5.9 g/dL Critically low 6.4-8.2 [facility] Comment on above: Performed By: #### P OCGLUC #### [facility] [address] [address] [address] Karmen Mccormick Sodium [Moles/Vol] 140 mmol/L Normal 136-145 [facility] Comment on above: Performed By: #### P OCGLUC #### [facility] [address] [address] [address] Karmen Mccormick Urea nitrogen [Mass/Vol] 10.0 mg/dL Normal 7.0-18.0 [facility] Comment on above: Performed By: #### P OCGLUC #### [facility] [address] [address] [address] Karmen Mccormick Urea nitrogen/Creatinine [Mass ratio] 15.9 mg/mg Normal [facility] Comment on above: Performed By: #### P OCGLUC #### [facility] [address] [address] [address] Karmen Mccormick XR ABD FLAT UP_PA Amber 03-31 XR ABD FLAT UP_PA CH EXAMINATION: XR ABD FLAT UP_PA CH HISTORY: NAUSEA WITH VOMITING, UNSPECIFIED COMPARISON: XR chest 05/12/2021 FINDINGS: LUNGS: No infiltrate, pneumothorax, or pleural effusion. MEDIASTINUM: Heart size approaches upper limits of normal. BOWEL GAS PATTERN: Non-obstructed. No abnormal dilation or suspicious fluid levels. FREE AIR: None. CALCIFICATIONS: None significant. BONES: No fracture or visible bone lesion. OTHER: Negative. IMPRESSION: 1. No acute cardiopulmonary process. 2. Normal bowel gas pattern. No suspicious abdominal findings. Electronically authenticated by: TEJAS CHRISTOPHER Date: 2022-03-31 13:12 Normal [facility] CBC AUTO DIFFon 03-30-2022 BASO # 0.0 103/ul Normal 0.0-0.1 [facility] Comment on above: Performed By: #### C BC #### [facility] [address] [address] [address] Karmen Mccormick Basophils/100 WBC (Bld) 0.4 % Normal 0.2-2.0 [facility] Comment on above: Performed By: #### C BC #### [facility] [address] [place] [address] Dr. Karmen Mccormick EO # 0.1 103/ul Normal 0.0-0.7 [facility] Comment on above: Performed By: #### C BC #### [facility] [address] [place] [address] Dr. Karmen Mccormick Eosinophils/100 WBC (Bld) 1.5 % Normal 0.9-7.0 [facility] Comment on above: Performed By: #### C BC #### [facility] [address] [place] [address] Dr. Karmen Mccormick Erythrocyte distribution width (RBC) [Ratio] 13.6 % Normal 11.0-15.0 [facility] Comment on above: Performed By: #### C BC #### [facility] [address] [place] [address] Dr. Karmen Mccormick Hematocrit (Bld) [Volume fraction] 37.1 % Normal 36.0-48.0 [facility] Comment on above: Performed By: #### C BC #### [facility] [address] [place] [address] Dr. Karmen Mccormick Hemoglobin (Bld) [Mass/Vol] 12.1 g/dL Normal 12.0-16.0 [facility] Comment on above: Performed By: #### C BC #### [facility] [address] [place] [address] Dr. Karmen Mccormick IG # 0.02 10e3/ul Normal 0.00-0.03 [facility] Comment on above: Performed By: #### C BC #### [facility] [address] [place] [address] Dr. Karmen Mccormick IG % 0.3 % Normal 0.0-0.5 [facility] Comment on above: Performed By: #### C BC #### [facility] [address] [address] [address] Karmen Mccormick LYMPH # 2.0 103/ul Normal 1.2-3.8 [facility] Comment on above: Performed By: #### C BC #### [facility] [address] [place] [address] Dr. Karmen Mccormick Lymphocytes/100 WBC (Bld) 25.7 % Normal 20.5-60.0 [facility] Comment on above: Performed By: #### C BC #### [facility] [address] [place] [address] Dr. Karmen Mccormick MANUAL DIFF REQ NO Normal [facility] Comment on above: Performed By: #### C BC #### [facility] [address] [place] [address] Dr. Karmen Mccormick MCH (RBC) [Entitic mass] 28.8 pg Normal 26.7-34.0 [facility] Comment on above: Performed By: #### C BC #### [facility] [address] [place] [address] Dr. Karmen Mccormick MCHC (RBC) [Mass/Vol] 32.6 g/dL Normal 29.9-35.2 [facility] Comment on above: Performed By: #### C BC #### [facility] [address] [place] [address] Dr. Karmen Mccormick MCV (RBC) [Entitic vol] 88.3 fL Normal 81.0-99.0 [facility] Comment on above: Performed By: #### C BC #### [facility] [address] [place] [address] Dr. Karmen Mccormick MONO # 0.8 103/ul Normal 0.3-0.8 [facility] Comment on above: Performed By: #### C BC #### [facility] [address] [place] [address] Dr. Karmen Mccormick Monocytes/100 WBC (Bld) 9.5 % Normal 1.7-12.0 [facility] Comment on above: Performed By: #### C BC #### [facility] [address] [place] [address] Dr. Karmen Mccormick NEUT # 4.9 103/ul Normal 1.4-6.5 [facility] Comment on above: Performed By: #### C BC #### [facility] [address] [place] [address] Dr. Karmen Mccormick Neutrophils/100 WBC (Bld) 62.6 % Normal 43.0-75.0 [facility] Comment on above: Performed By: #### C BC #### [facility] [address] [place] [address] Dr. Karmen Mccormick Platelet mean volume (Bld) [Entitic vol] 8.9 fL Critically low 9.5-13.5 [facility] Comment on above: Performed By: #### C BC #### [facility] [address] [place] [address] Dr. Karmen Mccormick PLT 324 103/ul Normal 150-450 [facility] Comment on above: Performed By: #### C BC #### [facility] [address] [place] [address] Dr. Karmen Mccormick RBC 4.20 106/ul Normal 4.20-5.40 [facility] Comment on above: Performed By: #### C BC #### [facility] [address] [place] [address] Dr. Karmen Mccormick WBC 7.9 103/ul Normal 4.0-11.0 [facility] Comment on above: Performed By: #### C BC #### [facility] [address] [place] [address] Dr. Karmen Mccormick POINT OF CARE GLUCOSEon 03-13 Glucose [Mass/Vol] 147 mg/dL Critically high 74-106 [facility] Comment on above: Performed By: #### P OCGLUC #### [facility] [address] [place] [address] Dr. Karmen Mccormick Glucose [Mass/Vol] 187 mg/dL Critically high 74-106 [facility] Comment on above: Performed By: #### C VDTBH #### [facility] [address] [place] [address] Dr. Karmen Mccormick Glucose [Mass/Vol] 211 mg/dL Critically high 74-106 [facility] Comment on above: Performed By: #### B MP #### [facility] [address] [place] [address] Dr. Karmen Mccormick PROF 14(COMP METB)on 022 Albumin [Mass/Vol] 2.5 g/dL Critically low 3.4-5.0 [facility] Comment on above: Performed By: #### C BC #### [facility] [address] [place] [address] Dr. Karmen Mccormick Albumin/Globulin [Mass ratio] 0.7 {ratio} Normal [facility] Comment on above: Performed By: #### C BC #### [facility] [address] [place] [address] Dr. Karmen Mccormick ALP [Catalytic activity/Vol] 76 U/L Normal 46-116 [facility] Comment on above: Performed By: #### C BC #### [facility] [address] [place] [address] Dr. Karmen Mccormick ALT [Catalytic activity/Vol] 7 U/L Critically low 14-59 [facility] Comment on above: Performed By: #### C BC #### [facility] [address] [place] [address] Dr. Karmen Mccormick Anion gap [Moles/Vol] 10.8 mmol/L Normal [facility] Comment on above: Performed By: #### C BC #### [facility] [address] [place] [address] Dr. Karmen Mccormick AST [Catalytic activity/Vol] 11 U/L Critically low 15-37 [facility] Comment on above: Performed By: #### C BC #### [facility] [address] [place] [address] Dr. Karmen Mccormick Bilirubin [Mass/Vol] 0.3 mg/dL Normal 0.2-1.0 [facility] Comment on above: Performed By: #### C BC #### [facility] [address] [address] [address] Karmen Mccormick Calcium [Mass/Vol] 8.4 mg/dL Critically low 8.5-10.1 [facility] Comment on above: Performed By: #### C BC #### [facility] [address] [address] [address] Karmen Mccormick Chloride [Moles/Vol] 106 mmol/L Normal 98-107 [facility] Comment on above: Performed By: #### C BC #### [facility] [address] [place] [address] Dr. Karmen Mccormick CO2 [Moles/Vol] 23.6 mmol/L Normal 21.0-32.0 [facility] Comment on above: Performed By: #### C BC #### [facility] [address] [place] [address] Dr. Karmen Mccormick Creatinine [Mass/Vol] 0.66 mg/dL Normal 0.55-1.02 [facility] Comment on above: Performed By: #### C BC #### [facility] [address] [place] [address] Dr. Karmen Mccormick EGFR-AF [place] >60 Normal >=60 [facility] Comment on above: Performed By: #### C BC #### [facility] [address] [place] [address] Dr. Karmen Mccormick EGFR-NON AF [place] >60 Normal >=60 [facility] Comment on above: Performed By: #### C BC #### [facility] [address] [place] [address] Dr. Karmen Mccormick Globulin (S) [Mass/Vol] 3.4 g/dL Normal [facility] Comment on above: Performed By: #### C BC #### [facility] [address] [place] [address] Dr. Karmen Mccormick Glucose [Mass/Vol] 187 mg/dL Critically high 74-106 [facility] Comment on above: Performed By: #### C BC #### [facility] [address] [place] [address] Dr. Karmen Mccormick Potassium [Moles/Vol] 3.4 mmol/L Critically low 3.5-5.1 [facility] Comment on above: Performed By: #### C BC #### [facility] [address] [place] [address] Dr. Karmen Mccormick Protein [Mass/Vol] 5.9 g/dL Critically low 6.4-8.2 [facility] Comment on above: Performed By: #### C BC #### [facility] [address] [place] [address] Dr. Karmen Mccormick Sodium [Moles/Vol] 137 mmol/L Normal 136-145 [facility] Comment on above: Performed By: #### C BC #### [facility] [address] [place] [address] Dr. Karmen Mccormick Urea nitrogen [Mass/Vol] 14.0 mg/dL Normal 7.0-18.0 [facility] Comment on above: Performed By: #### C BC #### [facility] [address] [place] [address] Dr. Karmen Mccormick Urea nitrogen/Creatinine [Mass ratio] 21.2 mg/mg Normal [facility] Comment on above: Performed By: #### C BC #### [facility] [address] [place] [address] Dr. Karmen Mccormick CBC AUTO DIFFon 03-29-2022 BASO # 0.0 103/ul Normal 0.0-0.1 [facility] Comment on above: Performed By: #### P OCGLUC #### [facility] [address] [place] [address] Dr. Karmen Mccormick Basophils/100 WBC (Bld) 0.3 % Normal 0.2-2.0 [facility] Comment on above: Performed By: #### P OCGLUC #### [facility] [address] [place] [address] Dr. Karmen Mccormick EO # 0.0 103/ul Normal 0.0-0.7 [facility] Comment on above: Performed By: #### P OCGLUC #### [facility] [address] [place] [address] Dr. Karmen Mccormick Eosinophils/100 WBC (Bld) 0.4 % Critically low 0.9-7.0 [facility] Comment on above: Performed By: #### P OCGLUC #### [facility] [address] [place] [address] Dr. Karmen Mccormick Erythrocyte distribution width (RBC) [Ratio] 13.7 % Normal 11.0-15.0 [facility] Comment on above: Performed By: #### P OCGLUC #### [facility] [address] [place] [address] Dr. Karmen Mccormick Hematocrit (Bld) [Volume fraction] 40.9 % Normal 36.0-48.0 [facility] Comment on above: Performed By: #### P OCGLUC #### [facility] [address] [place] [address] Dr. Karmen Mccormick Hemoglobin (Bld) [Mass/Vol] 13.4 g/dL Normal 12.0-16.0 [facility] Comment on above: Performed By: #### P OCGLUC #### [facility] [address] [place] [address] Dr. Karmen Mccormick IG # 0.05 10e3/ul Critically high 0.00-0.03 [facility] Comment on above: Performed By: #### P OCGLUC #### [facility] [address] [place] [address] Dr. Karmen Mccormick IG % 0.5 % Normal 0.0-0.5 [facility] Comment on above: Performed By: #### P OCGLUC #### [facility] [address] [place] [address] Dr. Karmen Mccormick LYMPH # 1.3 103/ul Normal 1.2-3.8 [facility] Comment on above: Performed By: #### P OCGLUC #### [facility] [address] [place] [address] Dr. Karmen Mccormick Lymphocytes/100 WBC (Bld) 13.4 % Critically low 20.5-60.0 [facility] Comment on above: Performed By: #### P OCGLUC #### [facility] [address] [place] [address] Dr. Karmen Mccormick MANUAL DIFF REQ NO Normal [facility] Comment on above: Performed By: #### P OCGLUC #### [facility] [address] [place] [address] Dr. Karmen Mccormick MCH (RBC) [Entitic mass] 28.8 pg Normal 26.7-34.0 [facility] Comment on above: Performed By: #### P OCGLUC #### [facility] [address] [place] [address] Dr. Karmen Mccormick MCHC (RBC) [Mass/Vol] 32.8 g/dL Normal 29.9-35.2 [facility] Comment on above: Performed By: #### P OCGLUC #### [facility] [address] [place] [address] Dr. Karmen Mccormick MCV (RBC) [Entitic vol] 87.8 fL Normal 81.0-99.0 [facility] Comment on above: Performed By: #### P OCGLUC #### [facility] [address] [place] [address] Dr. Karmen Mccormick MONO # 0.7 103/ul Normal 0.3-0.8 [facility] Comment on above: Performed By: #### P OCGLUC #### [facility] [address] [place] [address] Dr. Karmen Mccormick Monocytes/100 WBC (Bld) 7.4 % Normal 1.7-12.0 [facility] Comment on above: Performed By: #### P OCGLUC #### [facility] [address] [place] [address] Dr. Karmen Mccormick NEUT # 7.6 103/ul Critically high 1.4-6.5 [facility] Comment on above: Performed By: #### P OCGLUC #### [facility] [address] [place] [address] Dr. Karmen Mccormick Neutrophils/100 WBC (Bld) 78.0 % Critically high 43.0-75.0 [facility] Comment on above: Performed By: #### P OCGLUC #### [facility] [address] [place], [place] [id number] Dr. Karmen Mccormick Platelet mean volume (Bld) [Entitic vol] 9.1 fL Critically low 9.5-13.5 [facility] Comment on above: Performed By: #### P OCGLUC #### [facility] [address] [place] [address] Dr. Karmen Mccormick PLT 370 103/ul Normal 150-450 [facility] Comment on above: Performed By: #### P OCGLUC #### [facility] [address] [address] [address] Karmen Mccormick RBC 4.66 106/ul Normal 4.20-5.40 [facility] Comment on above: Performed By: #### P OCGLUC #### [facility] [address] [address] [address] Karmen Mccormick WBC 9.8 103/ul Normal 4.0-11.0 [facility] Comment on above: Performed By: #### P OCGLUC #### [facility] [address] [address] [address] Karmen Mccormick POINT OF CARE GLUCOSEon 03-13 Glucose [Mass/Vol] 233 mg/dL Critically high 74-106 [facility] Comment on above: Performed By: #### C VDTBH #### [facility] [address] [place] [address] Dr. Karmen Mccormick Glucose [Mass/Vol] 212 mg/dL Critically high 74-106 [facility] Comment on above: Performed By: #### P OCGLUC #### [facility] [address] [place] [address] Dr. Karmen Mccormick Glucose [Mass/Vol] 237 mg/dL Critically high 74-106 [facility] Comment on above: Performed By: #### A CETON #### [facility] [address] [place] [address] Dr. Karmen Mccormick PROF 14(COMP METB)on 022 Albumin [Mass/Vol] 2.6 g/dL Critically low 3.4-5.0 [facility] Comment on above: Performed By: #### P OCGLUC #### [facility] [address] [address] [address] Karmen Mccormick Albumin/Globulin [Mass ratio] 0.7 {ratio} Normal [facility] Comment on above: Performed By: #### P OCGLUC #### [facility] [address] [address] [address] Karmen Mccormick ALP [Catalytic activity/Vol] 86 U/L Normal 46-116 [facility] Comment on above: Performed By: #### P OCGLUC #### [facility] [address] [address] [address] Karmen Mccormick ALT [Catalytic activity/Vol] 12 U/L Critically low 14-59 [facility] Comment on above: Performed By: #### P OCGLUC #### [facility] [address] [address] [address] Karmen Mccormick Anion gap [Moles/Vol] 14.9 mmol/L Normal [facility] Comment on above: Performed By: #### P OCGLUC #### [facility] [address] [address] [address] Karmen Mccormick AST [Catalytic activity/Vol] 13 U/L Critically low 15-37 [facility] Comment on above: Performed By: #### P OCGLUC #### [facility] [address] [address] [address] Karmen Mccormick Bilirubin [Mass/Vol] 0.3 mg/dL Normal 0.2-1.0 [facility] Comment on above: Performed By: #### P OCGLUC #### [facility] [address] [address] [address] Karmen Mccormick Calcium [Mass/Vol] 8.8 mg/dL Normal 8.5-10.1 [facility] Comment on above: Performed By: #### P OCGLUC #### [facility] [address] [address] [address] Karmen Mccormick Chloride [Moles/Vol] 106 mmol/L Normal 98-107 [facility] Comment on above: Performed By: #### P OCGLUC #### [facility] [address] [address] [address] Karmen Mccormick CO2 [Moles/Vol] 21.6 mmol/L Normal 21.0-32.0 [facility] Comment on above: Performed By: #### P OCGLUC #### [facility] [address] [place] [address] Dr. Karmen Mccormick Creatinine [Mass/Vol] 0.77 mg/dL Normal 0.55-1.02 [facility] Comment on above: Performed By: #### P OCGLUC #### [facility] [address] [place] [address] Dr. Karmen Mccormick EGFR-AF [place] >60 Normal >=60 [facility] Comment on above: Performed By: #### P OCGLUC #### [facility] [address] [place] [address] Dr. Karmen Mccormick EGFR-NON AF [place] >60 Normal >=60 [facility] Comment on above: Performed By: #### P OCGLUC #### [facility] [address] [place] [address] Dr. Karmen Mccormick Globulin (S) [Mass/Vol] 3.9 g/dL Normal [facility] Comment on above: Performed By: #### P OCGLUC #### [facility] [address] [place] [address] Dr. Karmen Mccormick Glucose [Mass/Vol] 195 mg/dL Critically high 74-106 [facility] Comment on above: Performed By: #### P OCGLUC #### [facility] [address] [place] [address] Dr. Karmen Mccormick Potassium [Moles/Vol] 3.5 mmol/L Normal 3.5-5.1 [facility] Comment on above: Performed By: #### P OCGLUC #### [facility] [address] [place] [address] Dr. Karmen Mccormick Protein [Mass/Vol] 6.5 g/dL Normal 6.4-8.2 [facility] Comment on above: Performed By: #### P OCGLUC #### [facility] [address] [place] [address] Dr. Karmen Mccormick Sodium [Moles/Vol] 139 mmol/L Normal 136-145 [facility] Comment on above: Performed By: #### P OCGLUC #### [facility] [address] [place] [address] Dr. Karmen Mccormick Urea nitrogen [Mass/Vol] 17.0 mg/dL Normal 7.0-18.0 [facility] Comment on above: Performed By: #### P OCGLUC #### [facility] [address] [place] [address] Dr. Karmen Mccormick Urea nitrogen/Creatinine [Mass ratio] 22.1 mg/mg Normal [facility] Comment on above: Performed By: #### P OCGLUC #### [facility] [address] [place] [address] Dr. Karmen Mccormick CBC AUTO DIFFon 03-28-2022 BASO # 0.0 103/ul Normal 0.0-0.1 [facility] Comment on above: Performed By: #### P OCGLUC #### [facility] [address] [place] [address] Dr. Karmen Mccormick Basophils/100 WBC (Bld) 0.3 % Normal 0.2-2.0 [facility] Comment on above: Performed By: #### P OCGLUC #### [facility] [address] [place] [address] Dr. Karmen Mccormick EO # 0.0 103/ul Normal 0.0-0.7 [facility] Comment on above: Performed By: #### P OCGLUC #### [facility] [address] [place] [address] Dr. Karmen Mccormick Eosinophils/100 WBC (Bld) 0.2 % Critically low 0.9-7.0 [facility] Comment on above: Performed By: #### P OCGLUC #### [facility] [address] [place] [address] Dr. Karmen Mccormick Erythrocyte distribution width (RBC) [Ratio] 13.2 % Normal 11.0-15.0 [facility] Comment on above: Performed By: #### P OCGLUC #### [facility] [address] [place] [address] Dr. Karmen Mccormick Hematocrit (Bld) [Volume fraction] 39.1 % Normal 36.0-48.0 [facility] Comment on above: Performed By: #### P OCGLUC #### [facility] [address] [address] [address] Karmen Mccormick Hemoglobin (Bld) [Mass/Vol] 13.0 g/dL Normal 12.0-16.0 [facility] Comment on above: Performed By: #### P OCGLUC #### [facility] [address] [address] [address] Karmen Mccormick IG # 0.08 10e3/ul Critically high 0.00-0.03 [facility] Comment on above: Performed By: #### P OCGLUC #### [facility] [address] [place] [address] Dr. Karmen Mccormick IG % 0.7 % Critically high 0.0-0.5 [facility] Comment on above: Performed By: #### P OCGLUC #### [facility] [address] [place] [address] Dr. Karmen Mccormick LYMPH # 1.4 103/ul Normal 1.2-3.8 [facility] Comment on above: Performed By: #### P OCGLUC #### [facility] [address] [place] [address] Dr. Karmen Mccormick Lymphocytes/100 WBC (Bld) 12.3 % Critically low 20.5-60.0 [facility] Comment on above: Performed By: #### P OCGLUC #### [facility] [address] [place] [address] Dr. Karmen Mccormick MANUAL DIFF REQ NO Normal [facility] Comment on above: Performed By: #### P OCGLUC #### [facility] [address] [place] [address] Dr. Karmen Mccormick MCH (RBC) [Entitic mass] 29.3 pg Normal 26.7-34.0 [facility] Comment on above: Performed By: #### P OCGLUC #### [facility] [address] [place] [address] Dr. Karmen Mccormick MCHC (RBC) [Mass/Vol] 33.2 g/dL Normal 29.9-35.2 [facility] Comment on above: Performed By: #### P OCGLUC #### [facility] [address] [address] [address] Karmen Mccormick MCV (RBC) [Entitic vol] 88.3 fL Normal 81.0-99.0 [facility] Comment on above: Performed By: #### P OCGLUC #### [facility] [address] [place] [address] Dr. Karmen Mccormick MONO # 0.8 103/ul Normal 0.3-0.8 [facility] Comment on above: Performed By: #### P OCGLUC #### [facility] [address] [place] [address] Dr. Karmen Mccormick Monocytes/100 WBC (Bld) 6.6 % Normal 1.7-12.0 [facility] Comment on above: Performed By: #### P OCGLUC #### [facility] [address] [place] [address] Dr. Karmen Mccormick NEUT # 9.1 103/ul Critically high 1.4-6.5 [facility] Comment on above: Performed By: #### P OCGLUC #### [facility] [address] [place] [address] Dr. Karmen Mccormick Neutrophils/100 WBC (Bld) 79.9 % Critically high 43.0-75.0 [facility] Comment on above: Performed By: #### P OCGLUC #### [facility] [address] [place] [address] Dr. Karmen Mccormick Platelet mean volume (Bld) [Entitic vol] 10.1 fL Normal 9.5-13.5 [facility] Comment on above: Performed By: #### P OCGLUC #### [facility] [address] [place] [address] Dr. Karmen Mccormick PLT 336 103/ul Normal 150-450 [facility] Comment on above: Performed By: #### P OCGLUC #### [facility] [address] [address] [address] Karmen Mccormick RBC 4.43 106/ul Normal 4.20-5.40 [facility] Comment on above: Performed By: #### P OCGLUC #### [facility] [address] [address] [address] Karmen Mccormick WBC 11.4 103/ul Critically high 4.0-11.0 [facility] Comment on above: Performed By: #### P OCGLUC #### [facility] [address] [address] [address] Karmen Mccormick POINT OF CARE GLUCOSEon 03-13 Glucose [Mass/Vol] 198 mg/dL Critically high [address] [place] [address] Comment on above: Performed By: #### P OCGLUC #### [facility] [address] [place] [address] Dr. Karmen Mccormick Glucose [Mass/Vol] 509 mg/dL Critically high [address] [place] [address] Comment on above: Result Comment: [employer] Performed By: #### P OCGLUC #### [facility] [address] [place] [address] Dr. Karmen Mccormick Glucose [Mass/Vol] 193 mg/dL Critically high [address] [place] [address] Comment on above: Performed By: #### C VDTBH #### [facility] [address] [place] [address] Dr. Karmen Mccormick Glucose [Mass/Vol] 217 mg/dL Critically high [address] [place] [address] Comment on above: Performed By: #### C BC #### [facility] [address] [place] [address] Dr. Karmen Mccormick Glucose [Mass/Vol] 207 mg/dL Critically high [address] [place] [address] Comment on above: Performed By: #### P OCGLUC #### [facility] [address] [place] [address] Dr. Karmen Mccormick Glucose [Mass/Vol] 198 mg/dL Critically high [address] [place] [address] Comment on above: Performed By: #### P OCGLUC #### [facility] [address] [place] [address] Dr. Karmen Mccormick Glucose [Mass/Vol] 208 mg/dL Critically high [address] [place] [address] Comment on above: Performed By: #### P OCGLUC #### [facility] [address] [address] [address] Karmen Mccormick Glucose [Mass/Vol] 194 mg/dL Critically high [address] [place] [address] Comment on above: Performed By: #### P OCGLUC #### [facility] [address] [address] [address] Karmen Mccormick Glucose [Mass/Vol] 162 mg/dL Critically high [address] [place] [address] Comment on above: Performed By: #### P OCGLUC #### [facility] [address] [address] [address] Karmen Mccormick Glucose [Mass/Vol] 166 mg/dL Critically high [address] [place] [address] Comment on above: Performed By: #### P OCGLUC #### [facility] [address] [address] [address] Karmen Mccormick Glucose [Mass/Vol] 209 mg/dL Critically high [address] [place] [address] Comment on above: Performed By: #### P OCGLUC #### [facility] [address] [address] [address] Karmen Mccormick Glucose [Mass/Vol] 210 mg/dL Critically high [address] [place] [address] Comment on above: Performed By: #### P OCGLUC #### [facility] [address] [address] [address] Karmen Mccormick Glucose [Mass/Vol] 207 mg/dL Critically high [address] [place] [address] Comment on above: Performed By: #### C VDTBH #### [facility] [address] [address] [address] Karmen Mccormick Glucose [Mass/Vol] 209 mg/dL Critically high [address] [place] [address] Comment on above: Performed By: #### P OCGLUC #### [facility] [address] [address] [address] Karmen Mccormick Glucose [Mass/Vol] 225 mg/dL Critically high [facility] Comment on above: Performed By: #### A CETON #### [facility] [address] [address] [address] Karmen Mccormick Glucose [Mass/Vol] 262 mg/dL Critically high -106 [facility] Comment on above: Performed By: #### P OCGLUC #### [facility] [address] [place] [address] Dr. Karmen Mccormick Glucose [Mass/Vol] 252 mg/dL Critically high -106 [facility] Comment on above: Performed By: #### P OCGLUC #### [facility] [address] [place] [address] Dr. Karmen Mccormick PROF 14(COMP METB)on 022 Albumin [Mass/Vol] 2.9 g/dL Critically low 3.4-5.0 [facility] Comment on above: Performed By: #### C VDTBH #### [facility] [address] [place] [address] Dr. Karmen Mccormick Albumin/Globulin [Mass ratio] 0.7 {ratio} Normal [facility] Comment on above: Performed By: #### C VDTBH #### [facility] [address] [place] [address] Dr. Karmen Mccormick ALP [Catalytic activity/Vol] 102 U/L Normal 46-116 [facility] Comment on above: Performed By: #### C VDTBH #### [facility] [address] [place] [address] Dr. Karmen Mccormick ALT [Catalytic activity/Vol] 13 U/L Critically low 14-59 [facility] Comment on above: Performed By: #### C VDTBH #### [facility] [address] [place] [address] Dr. Karmen Mccormick Anion gap [Moles/Vol] 18.1 mmol/L Normal [facility] Comment on above: Performed By: #### C VDTBH #### [facility] [address] [place] [address] Dr. Karmen Mccormick AST [Catalytic activity/Vol] 10 U/L Critically low 15-37 [facility] Comment on above: Performed By: #### C VDTBH #### [facility] [address] [place] [address] Dr. Karmen Mccormick Bilirubin [Mass/Vol] 0.2 mg/dL Normal 0.2-1.0 [facility] Comment on above: Performed By: #### C VDTBH #### [facility] [address] [place] [address] Dr. Karmen Mccormick Calcium [Mass/Vol] 9.5 mg/dL Normal 8.5-10.1 [facility] Comment on above: Performed By: #### C VDTBH #### [facility] [address] [place] [address] Dr. Karmen Mccormick Chloride [Moles/Vol] 107 mmol/L Normal 98-107 [facility] Comment on above: Performed By: #### C VDTBH #### [facility] [address] [place] [address] Dr. Karmen Mccormick CO2 [Moles/Vol] 21.3 mmol/L Normal 21.0-32.0 [facility] Comment on above: Performed By: #### C VDTBH #### [facility] [address] [place] [address] Dr. Karmen Mccormick Creatinine [Mass/Vol] 0.86 mg/dL Normal 0.55-1.02 [facility] Comment on above: Performed By: #### C VDTBH #### [facility] [address] [place] [address] Dr. Karmen Mccormick EGFR-AF [place] >60 Normal >=60 [facility] Comment on above: Performed By: #### C VDTBH #### [facility] [address] [place] [address] Dr. Karmen Mccormick EGFR-NON AF [place]IZ[place] >60 Normal >=60 [facility] Comment on above: Performed By: #### C VDTBH #### [facility] [address] [place] [address] Dr. Karmen Mccormick Globulin (S) [Mass/Vol] 4.3 g/dL Normal T [facility] Comment on above: Performed By: #### C VDTBH #### [facility] [address] [address] [address] Karmen Mccormick Glucose [Mass/Vol] 199 mg/dL Critically high 74-106 [facility] Comment on above: Performed By: #### C VDTBH #### [facility] [address] [place] [address] Dr. Karmen Mccormick Potassium [Moles/Vol] 4.4 mmol/L Normal 3.5-5.1 [facility] Comment on above: Performed By: #### C VDTBH #### [facility] [address] [place] [address] Dr. Karmen Mccormick Protein [Mass/Vol] 7.2 g/dL Normal 6.4-8.2 [facility] Comment on above: Performed By: #### C VDTBH #### [facility] [address] [place] [address] Dr. Karmen Mccormick Sodium [Moles/Vol] 142 mmol/L Normal 136-145 [facility] Comment on above: Performed By: #### C VDTBH #### [facility] [address] [place] [address] Dr. Karmen Mccormick Urea nitrogen [Mass/Vol] 22.0 mg/dL Critically high 7.0-18.0 [facility] Comment on above: Performed By: #### C VDTBH #### [facility] [address] [place] [address] Dr. Karmen Mccormick Urea nitrogen/Creatinine [Mass ratio] 25.6 mg/mg Normal [facility] Comment on above: Performed By: #### C VDTBH #### [facility] [address] [place] [address] Dr. Karmen Mccormick PROF CHEM 8 (BAS METB)on Anion gap [Moles/Vol] 15.8 mmol/L Normal [facility] Comment on above: Performed By: #### A CETON #### [facility] [address] [place] [address] Dr. Karmen Mccormick Calcium [Mass/Vol] 9.3 mg/dL Normal 8.5-10.1 [facility] Comment on above: Performed By: #### A CETON #### [facility] [address] [address] [address] Karmen Mccormick Chloride [Moles/Vol] 106 mmol/L Normal 98-107 [facility] Comment on above: Performed By: #### A CETON #### [facility] [address] [address] [address] Karmen Mccormick CO2 [Moles/Vol] 22.0 mmol/L Normal 21.0-32.0 [facility] Comment on above: Performed By: #### A CETON #### [facility] [address] [place] [address] Dr. Karmen Mccormick Creatinine [Mass/Vol] 0.83 mg/dL Normal 0.55-1.02 [facility] Comment on above: Performed By: #### A CETON #### [facility] [address] [place] [address] Dr. Karmen Mccormick EGFR-AF [place] >60 Normal >=60 [facility] Comment on above: Performed By: #### A CETON #### [facility] [address] [place] [address] Dr. Karmen Mccormick EGFR-NON AF [place] >60 Normal >=60 [facility] Comment on above: Performed By: #### A CETON #### [facility] [address] [place] [address] Dr. Karmen Mccormick Glucose [Mass/Vol] 233 mg/dL Critically high 74-106 [facility] Comment on above: Performed By: #### A CETON #### [facility] [address] [address] [address] Karmen Mccormick Potassium [Moles/Vol] 3.8 mmol/L Normal 3.5-5.1 [facility] Comment on above: Performed By: #### A CETON #### [facility] [address] [place] [address] Dr. Karmen Mccormick Sodium [Moles/Vol] 140 mmol/L Normal 136-145 [facility] Comment on above: Performed By: #### A CETON #### [facility] [address] [address] [address] Karmen Mccormick Urea nitrogen [Mass/Vol] 21.0 mg/dL Critically high 7.0-18.0 [facility] Comment on above: Performed By: #### A CETON #### [facility] [address] [address] [address] Karmen Mccormick Urea nitrogen/Creatinine [Mass ratio] 25.3 mg/mg Normal [facility] Comment on above: Performed By: #### A CETON #### [facility] [address] [address] [address] Karmen Mccormick Anion gap [Moles/Vol] 20.4 mmol/L Normal [facility] Comment on above: Performed By: #### C BC #### [facility] [address] [place] [address] Dr. Karmen Mccormick Calcium [Mass/Vol] 9.7 mg/dL Normal 8.5-10.1 [facility] Comment on above: Performed By: #### C BC #### [facility] [address] [place] [address] Dr. Karmen Mccormick Chloride [Moles/Vol] 104 mmol/L Normal 98-107 [facility] Comment on above: Performed By: #### C BC #### [facility] [address] [address] [address] Karmen Mccormick CO2 [Moles/Vol] 17.7 mmol/L Critically low 21.0-32.0 [facility] Comment on above: Performed By: #### C BC #### [facility] [address] [address] [address] Karmen Mccormick Creatinine [Mass/Vol] 1.00 mg/dL Normal 0.55-1.02 [facility] Comment on above: Performed By: #### C BC #### [facility] [address] [address] [address] Karmen Mccormick EGFR-AF [place] >60 Normal >=60 [facility] Comment on above: Performed By: #### C BC #### [facility] [address] [address] [address] Karmen Mccormick EGFR-NON AF [place] 55 mL/min/1.73m2 Critically low >=60 [facility] Comment on above: Performed By: #### C BC #### [facility] [address] [address] [address] Karmen Mccormick Glucose [Mass/Vol] 277 mg/dL Critically high 74-106 [facility] Comment on above: Performed By: #### C BC #### [facility] [address] [address] [address] Karmen Mccormick Potassium [Moles/Vol] 4.1 mmol/L Normal 3.5-5.1 [facility] Comment on above: Performed By: #### C BC #### [facility] [address] [address] [address] Karmen Mccormick Sodium [Moles/Vol] 138 mmol/L Normal 136-145 [facility] Comment on above: Performed By: #### C BC #### [facility] [address] [address] [address] Karmen Mccormick Urea nitrogen [Mass/Vol] 23.0 mg/dL Critically high 7.0-18.0 [facility] Comment on above: Performed By: #### C BC #### [facility] [address] [address] [address] Karmen Mccormick Urea nitrogen/Creatinine [Mass ratio] 23.0 mg/mg Normal [facility] Comment on above: Performed By: #### C BC #### [facility] [address] [address] [address] Karmen Mccormick ACETONE SERUMon 03-27-2022 ACETONE SMALL Abnormal NEGATIVE [facility] Comment on above: Performed By: #### A CETON #### [facility] [address] [address] [address] Karmen Mccormick CBC AUTO DIFFon 03-27-2022 BASO # 0.0 103/ul Normal 0.0-0.1 [facility] Comment on above: Performed By: #### P OCGLUC #### [facility] [address] [address] [address] Karmen Mccormick Basophils/100 WBC (Bld) 0.3 % Normal 0.2-2.0 [facility] Comment on above: Performed By: #### P OCGLUC #### [facility] [address] [address] [address] Karmen Mccormick EO # 0.0 103/ul Normal 0.0-0.7 [facility] Comment on above: Performed By: #### P OCGLUC #### [facility] [address] [address] [address] Karmen Mccormick Eosinophils/100 WBC (Bld) 0.2 % Critically low 0.9-7.0 [facility] Comment on above: Performed By: #### P OCGLUC #### [facility] [address] [place] [address] Dr. Karmen Mccormick Erythrocyte distribution width (RBC) [Ratio] 13.0 % Normal 11.0-15.0 [facility] Comment on above: Performed By: #### P OCGLUC #### [facility] [address] [address] [address] Karmen Mccormick Hematocrit (Bld) [Volume fraction] 42.0 % Normal 36.0-48.0 [facility] Comment on above: Performed By: #### P OCGLUC #### [facility] [address] [address] [address] Karmen Mccormick Hemoglobin (Bld) [Mass/Vol] 13.5 g/dL Normal 12.0-16.0 [facility] Comment on above: Performed By: #### P OCGLUC #### [facility] [address] [address] [address] Karmen Mccormick IG # 0.07 10e3/ul Critically high 0.00-0.03 [facility] Comment on above: Performed By: #### P OCGLUC #### [facility] [address] [address] [address] Karmen Mccormick IG % 0.8 % Critically high 0.0-0.5 [facility] Comment on above: Performed By: #### P OCGLUC #### [facility] [address] [address] [address] Karmen Mccormick LYMPH # 1.0 103/ul Critically low 1.2-3.8 [facility] Comment on above: Performed By: #### P OCGLUC #### [facility] [address] [address] [address] Karmen Mccormick Lymphocytes/100 WBC (Bld) 11.0 % Critically low 20.5-60.0 [facility] Comment on above: Performed By: #### P OCGLUC #### [facility] [address] [address] [address] Karmen Mccormick MANUAL DIFF REQ NO Normal [facility] Comment on above: Performed By: #### P OCGLUC #### [facility] [address] [address] [address] Karmen Mccormick MCH (RBC) [Entitic mass] 28.8 pg Normal 26.7-34.0 [facility] Comment on above: Performed By: #### P OCGLUC #### [facility] [address] [address] [address] Karmen Mccormick MCHC (RBC) [Mass/Vol] 32.1 g/dL Normal 29.9-35.2 [facility] Comment on above: Performed By: #### P OCGLUC #### [facility] [address] [address] [address] Karmen Mccormick MCV (RBC) [Entitic vol] 89.7 fL Normal 81.0-99.0 [facility] Comment on above: Performed By: #### P OCGLUC #### [facility] [address] [address] [address] Karmen Mccormick MONO # 0.4 103/ul Normal 0.3-0.8 [facility] Comment on above: Performed By: #### P OCGLUC #### [facility] [address] [address] [address] Karmen Mccormick Monocytes/100 WBC (Bld) 4.8 % Normal 1.7-12.0 [facility] Comment on above: Performed By: #### P OCGLUC #### [facility] [address] [address] [address] Karmen Mccormick NEUT # 7.5 103/ul Critically high 1.4-6.5 [facility] Comment on above: Performed By: #### P OCGLUC #### [facility] [address] [address] [address] Karmen Mccormick Neutrophils/100 WBC (Bld) 82.9 % Critically high 43.0-75.0 [facility] Comment on above: Performed By: #### P OCGLUC #### [facility] [address] [place] [address] Dr. Karmen Mccormick Platelet mean volume (Bld) [Entitic vol] 10.3 fL Normal 9.5-13.5 [facility] Comment on above: Performed By: #### P OCGLUC #### [facility] [address] [place] [address] Dr. Karmne Mccormick PLT 333 103/ul Normal 150-450 [facility] Comment on above: Performed By: #### P OCGLUC #### [facility] [address] [place] [address] Dr. Karmen Mccormick RBC 4.68 106/ul Normal 4.20-5.40 [facility] Comment on above: Performed By: #### P OCGLUC #### [facility] [address] [place] [address] Dr. Karmen Mccormick WBC 9.0 103/ul Normal 4.0-11.0 [facility] Comment on above: Performed By: #### P OCGLUC #### [facility] [address] [place] [address] Dr. Karmen Mccormick Covid-19 PCR ([facility])on 03-13 SARS-CoV-2 (COVID-19) RNA IRVIN+probe Ql (Unsp spec) Not detected Normal NOT DETECTED [facility] Comment on above: Result Comment: When diagnostic testing is negative, the possibility of a false negative should be considered in the context of a patient's recent exposures and the presence of clinical signs and symptoms consistent with SARS-CoV-2. This test is not yet approved or cleared by the [place] FDA. When there are no FDA-approved or cleared tests available, and other criteria are met, FDA can make tests available under an emergency access mechanism called an Emergency Use Authorization (EUA). The EUA for this test is supported by the [place] of Health and Human Service's declaration that circumstances exist to justify the emergency use of in vitro diagnostics for the detection and/or diagnosis of the virus that causes COVID-19. This EUA will remain in effect for the duration of the COVID-19 declaration justifying emergency of IVDs, unless it is terminated or revoked by the FDA (after which the test may no longer be used). Performed By: #### C VDTBH #### [facility] [address] [place] [address] Dr. Karmen Mccormick ER URINE PROFILEon 2 Bilirubin Ql (U) Negative Normal NEGATIVE [facility] Comment on above: Performed By: #### P OCGLUC #### [facility] [address] [place] [address] Dr. Karmen Mccormick Clarity (U) CLEAR Normal CLEAR [facility] Comment on above: Performed By: #### P OCGLUC #### [facility] [address] [place] [address] Dr. Karmen Mccormick Color (U) LT. YELLOW Normal YELLOW [facility] Comment on above: Performed By: #### P OCGLUC #### [facility] [address] [place] [address] Dr. Karmen ANDREWLay A micrscopic examination will be performed if indicated. Normal [facility] Comment on above: Performed By: #### P OCGLUC #### [facility] [address] [place] [address] Dr. Karmen Mccormick Glucose Ql (U) 1000 mg/dl Abnormal NEGATIVE [facility] Comment on above: Performed By: #### P OCGLUC #### [facility] [address] [place] [address] Dr. Karmen Mccormick Hemoglobin Ql (U) Negative Normal NEGATIVE [facility] Comment on above: Performed By: #### P OCGLUC #### [facility] [address] [address] [address] Karmen Mccormick Ketones Ql (U) >=80 Abnormal NEGATIVE [facility] Comment on above: Performed By: #### P OCGLUC #### [facility] [address] [address] [address] Karmen Mccormick LEUKOCYTES Negative Normal NEGATIVE [facility] Comment on above: Performed By: #### P OCGLUC #### [facility] [address] [address] [address] Karmen Mccormick Nitrite Ql (U) Negative Normal NEGATIVE [facility] Comment on above: Performed By: #### P OCGLUC #### [facility] [address] [place] [address] Dr. Karmen Mccormick pH (U) 5.5 [pH] Normal 5-9 [facility] Comment on above: Performed By: #### P OCGLUC #### [facility] [address] [place] [address] Dr. Karmen Mccormick SPEC GRAVITY 1.020 Normal 1.005-<=1.025 [facility] Comment on above: Performed By: #### P OCGLUC #### [facility] [address] [place] [address] Dr. Karmen Mccormick UA PROTEIN Negative Normal NEGATIVE/ TRACE [facility] Comment on above: Performed By: #### P OCGLUC #### [facility] [address] [place] [address] Dr. Karmen Mccormick UR MICRO IND NOT INDICATED Normal [facility] Comment on above: Performed By: #### P OCGLUC #### [facility] [address] [place] [address] Dr. Karmen Mccormick Urobilinogen Qn (U) 0.2 {Rajeev'U}/dL Normal 0.2 - 1. 0 [facility] Comment on above: Performed By: #### P OCGLUC #### [facility] [address] [place] [address] Dr. Karmen Mccormick LACTATE/LACTIC ACIDon 2021 Lactate [Moles/Vol] 1.5 mmol/L Normal 0.4-1.9 [facility] Comment on above: Performed By: #### P OCGLUC #### [facility] [address] [address] [address] Karmen Mccormick LIPASEon 03-27-2022 Lipase [Catalytic activity/Vol] 67.0 U/L Critically low 73.0-393.0 [facility] Comment on above: Performed By: #### P OCGLUC #### [facility] [address] [address] [address] Karmen Mccormick PH VENOUS BLOODon 03-27-2022 PCO2 VENOUS 30.3 mmHg Critically low 40.0-52.0 [facility] [facility] Comment on above: Performed By: #### P OCGLUC #### [facility] [address] [place] [address] Dr. Karmen Mccormick pH VENOUS 7.223 Critically low 7.330-7.430 [facility] Comment on above: Performed By: #### P OCGLUC #### [facility] [address] [place] [address] Dr. Karmen Mccormick POINT OF CARE GLUCOSEon 03-13 Glucose [Mass/Vol] 318 mg/dL Critically high [address] [place] [address] Comment on above: Performed By: #### P OCGLUC #### [facility] [address] [place] [address] Dr. Karmen Mccormick Glucose [Mass/Vol] 289 mg/dL Critically high [address] [place] [address] Comment on above: Performed By: #### P OCGLUC #### [facility] [address] [place] [address] Dr. Karmen Mccormick Glucose [Mass/Vol] 330 mg/dL Critically high [address] [place] [address] Comment on above: Performed By: #### P OCGLUC #### [facility] [address] [place] [address] Dr. Karmen Mccormick Glucose [Mass/Vol] 413 mg/dL Critically high [facility] Comment on above: Performed By: #### P OCGLUC #### [facility] [address] [place] [address] Dr. Karmen Mccormick Glucose [Mass/Vol] 428 mg/dL Critically high 74-106 [facility] Comment on above: Performed By: #### B MP #### [facility] [address] [address] [address] Karmen Mccormick Glucose [Mass/Vol] 510 mg/dL Critically high 74-106 [facility] Comment on above: Result Comment: Resu lt Not Confirmed Performed By: #### A CETON #### [facility] [address] [address] [address] Karmen Mccormick Glucose [Mass/Vol] 587 mg/dL Critically high -106 [facility] Comment on above: Result Comment: Lab Draw Ordered Performed By: #### B MP #### [facility] [address] [place] [address] Dr. Karmen Mccormick PROF 14(COMP METB)on 022 Albumin [Mass/Vol] 3.1 g/dL Critically low 3.4-5.0 [facility] Comment on above: Performed By: #### P OCGLUC #### [facility] [address] [place] [address] Dr. Karmen Mccormick Albumin/Globulin [Mass ratio] 0.7 {ratio} Normal [facility] Comment on above: Performed By: #### P OCGLUC #### [facility] [address] [place] [address] Dr. Karmen Mccormick ALP [Catalytic activity/Vol] 108 U/L Normal 46-116 [facility] Comment on above: Performed By: #### P OCGLUC #### [facility] [address] [place] [address] Dr. Karmen Mccormick ALT [Catalytic activity/Vol] 14 U/L Normal 14-59 [facility] Comment on above: Performed By: #### P OCGLUC #### [facility] [address] [place] [address] Dr. Karmen Mccormick Anion gap [Moles/Vol] 29.9 mmol/L Normal [facility] Comment on above: Performed By: #### P OCGLUC #### [facility] [address] [address] [address] Karmen Mccormick AST [Catalytic activity/Vol] 8 U/L Critically low 15-37 [facility] Comment on above: Performed By: #### P OCGLUC #### [facility] [address] [address] [address] Karmen Mccormick Bilirubin [Mass/Vol] 0.5 mg/dL Normal 0.2-1.0 [facility] Comment on above: Performed By: #### P OCGLUC #### [facility] [address] [address] [address] Karmen Mccormick Calcium [Mass/Vol] 9.6 mg/dL Normal 8.5-10.1 [facility] Comment on above: Performed By: #### P OCGLUC #### [facility] [address] [address] [address] Karmen Mccormick Chloride [Moles/Vol] 95 mmol/L Critically low 98-107 [facility] Comment on above: Performed By: #### P OCGLUC #### [facility] [address] [address] [address] Karmen Mccormick CO2 [Moles/Vol] 11.3 mmol/L Critically low 21.0-32.0 [facility] Comment on above: Performed By: #### P OCGLUC #### [facility] [address] [address] [address] Karmen Mccormick Creatinine [Mass/Vol] 1.23 mg/dL Critically high 0.55-1.02 [facility] Comment on above: Performed By: #### P OCGLUC #### [facility] [address] [address] [address] Karmen Mccormick EGFR-[place] 53 mL/min/1.73m2 Critically low >=60 [facility] Comment on above: Performed By: #### P OCGLUC #### [facility] [address] [address] [address] Karmen Mccormick EGFR-NON AF [place]IZ[place] 43 mL/min/1.73m2 Critically low >=60 [facility] Comment on above: Performed By: #### P OCGLUC #### [facility] [address] [address] [address] Karmen Mccormick Globulin (S) [Mass/Vol] 4.5 g/dL Normal [facility] Comment on above: Performed By: #### P OCGLUC #### [facility] [address] [address] [address] Karmen Mccormick Glucose [Mass/Vol] 693 mg/dL Critically high 74-106 [facility] Comment on above: Result Comment: DILU ASHLEY Performed By: #### P OCGLUC #### [facility] [address] [address] [address] Karmen Mccormick Potassium [Moles/Vol] 5.2 mmol/L Critically high 3.5-5.1 [facility] Comment on above: Performed By: #### P OCGLUC #### [facility] [address] [address] [address] Karmen Mccormick Protein [Mass/Vol] 7.6 g/dL Normal 6.4-8.2 [facility] Comment on above: Performed By: #### P OCGLUC #### [facility] [address] [address] [address] Karmen Mccormick Sodium [Moles/Vol] 131 mmol/L Critically low 136-145 [facility] Comment on above: Performed By: #### P OCGLUC #### [facility] [address] [address] [address] Karmen Mccormick Urea nitrogen [Mass/Vol] 28.0 mg/dL Critically high 7.0-18.0 [facility] Comment on above: Performed By: #### P OCGLUC #### [facility] [address] [address] [address] Karmen Mccormick Urea nitrogen/Creatinine [Mass ratio] 22.8 mg/mg Normal [facility] Comment on above: Performed By: #### P OCGLUC #### [facility] [address] [address] [address] Karmen Mccormick PROF CHEM 8 (BAS METB)on Anion gap [Moles/Vol] 23.1 mmol/L Normal [facility] Comment on above: Performed By: #### B MP #### [facility] [address] [address] [address] Karmen Mccormick Calcium [Mass/Vol] 9.4 mg/dL Normal 8.5-10.1 [facility] Comment on above: Performed By: #### B MP #### [facility] [address] [address] [address] Karmen Mccormick Chloride [Moles/Vol] 103 mmol/L Normal 98-107 [facility] Comment on above: Performed By: #### B MP #### [facility] [address] [address] [address] Karmen Mccormick CO2 [Moles/Vol] 16.4 mmol/L Critically low 21.0-32.0 [facility] Comment on above: Performed By: #### B MP #### [facility] [address] [address] [address] Karmen Mccormick Creatinine [Mass/Vol] 1.08 mg/dL Critically high 0.55-1.02 [facility] Comment on above: Performed By: #### B MP #### [facility] [address] [address] [address] Karmen Mccormick EGFR-AF [place] >60 Normal >=60 [facility] Comment on above: Performed By: #### B MP #### [facility] [address] [address] [address] Karmen Mccormick EGFR-NON AF [place] 50 mL/min/1.73m2 Critically low >=60 [facility] Comment on above: Performed By: #### B MP #### [facility] [address] [address] [address] Karmen Mccormick Glucose [Mass/Vol] 368 mg/dL Critically high 74-106 [facility] Comment on above: Performed By: #### B MP #### [facility] [address] [address] [address] Karmen Mccormick Potassium [Moles/Vol] 4.5 mmol/L Normal 3.5-5.1 [facility] Comment on above: Performed By: #### B MP #### [facility] [address] [address] [address] Karmen Mccormick Sodium [Moles/Vol] 138 mmol/L Normal 136-145 [facility] Comment on above: Performed By: #### B MP #### [facility] [address] [address] [address] Karmen Mccormick Urea nitrogen [Mass/Vol] 23.0 mg/dL Critically high 7.0-18.0 [facility] Comment on above: Performed By: #### B MP #### [facility] [address] [place] [address] Dr. Karmen Mccormick Urea nitrogen/Creatinine [Mass ratio] 21.3 mg/mg Normal [facility] Comment on above: Performed By: #### B MP #### [facility] [address] [place] [address] Dr. Karmen Mccormick PROTIMEon 03-27-2022 INR Coag (PPP) [Relative time] 0.99 {INR} Normal [facility] Comment on above: Performed By: #### B MP #### [facility] [address] [place] [address] Dr. Karmen Mccormick INR GUIDELINES SEE BELOW Normal [facility] Comment on above: Result Comment: ELVIRA RED INR: 2.0 - 3.0 CONDITIONS NOT LISTED BELOW 2.5 - 3.5 FOR PROSTHETIC HEART VALVE REPLACEMENT 2.5 - 3.5 RECURRENT THROMBOSIS Performed By: #### B MP #### [facility] [address] [place] [address] Dr. Karmen Mccormick PT Coag (PPP) [Time] 10.7 s Normal 9.0-11.6 [facility] Comment on above: Performed By: #### B MP #### [facility] [address] [place] [address] Dr. Karmen Mccormick PTTon 03-27-2022 aPTT Coag (Bld) [Time] 22.0 s Critically low 22.3-36.2 [facility] Comment on above: Performed By: #### A CETON #### [facility] [address] [place] [address] Dr. Karmen Mccormick TROPONIN, HIGH SENSITIVITYon 03-27-2022 HSTROP 54.4 pg/mL Critically high 4.0-51.3 [facility] Comment on above: Result Comment: CUT- OFF POINTS HAVE BEEN ESTABLISHED BASED ON THE FOURTH UNIVERSAL DEFINITIONS OF MYOCARDIAL INFARCTION. THE UPPER REFERENCE LIMIT (URL) OF TROPONIN, DEFINED THE 99TH PERCENTILE OF cTnI DISTRIBUTION IN A REFERENCE POPULATION, HAS BEEN CONFIRMED THE DECISION THRESHOLD FOR [place] DIAGNOSIS. Performed By: #### C BC #### [facility] [address] [address] [address] Karmen Mccormick HSTROP 59.3 pg/mL Critically high 4.0-51.3 [facility] Comment on above: Result Comment: CUT- OFF POINTS HAVE BEEN ESTABLISHED BASED ON THE FOURTH UNIVERSAL DEFINITIONS OF MYOCARDIAL INFARCTION. THE UPPER REFERENCE LIMIT (URL) OF TROPONIN, DEFINED THE 99TH PERCENTILE OF cTnI DISTRIBUTION IN A REFERENCE POPULATION, HAS BEEN CONFIRMED THE DECISION THRESHOLD FOR [place] DIAGNOSIS. Performed By: #### P OCGLUC #### [facility] [address] [address] [address] Karmen Mccormick TSHon 03-27-2022 TSH 1.327 uIU/mL Normal 0.358-3.740 [facility] Comment on above: Performed By: #### P OCGLUC #### [facility] [address] [place] [address] Dr. Karmen Mccormick Vital Signs Date Time Vital Sign Value Performing Clinician Faci lity 12-21-2024 10: Body height 177.8 cm Lety Rothman MD Work Phone: [facility] 12-21-2024 10:040 Body mass index (BMI) [Ratio] 29.41 kg/m2 Lety Rothman MD Work Phone: [facility] 12-21-2024 10: Body weight 92.99 kg Lety Rothman MD Work Phone: [facility] 12-21-2024 10:26040 Diastolic blood pressure 66 mm[Hg] Lety Rothman MD Work Phone: [facility] 12-21-2024 10:26-0400 Heart rate 55 /min Lety Rothman MD Work Phone: [facility] 12-21-2024 10:26-0400 Respiratory rate 16 /min Lety Rothman MD Work Phone: [facility] 12-21-2024 10:26-0400 SaO2% (BldA) [Mass fraction] 97 % Lety Rothman MD Work Phone: [facility] 12-21-2024 10:26-0400 Systolic blood pressure 124 mm[Hg] Lety Rothman MD Work Phone: [facility] 11-16-2024 13:14-0500 Body height 177.8 cm Adan Pearson DPM Work Phone: [facility] 11-16-2024 13:14-0500 Body mass index (BMI) [Ratio] 30.13 kg/m2 Adan Pearson DPM Work Phone: [facility] 11-16-2024 13:14-0500 Body weight 95.25 kg Adan Pearson DPM Work Phone: [facility] 11-16-2024 13:14-0500 Respiratory rate 18 /min Adan Pearson DPM Work Phone: [facility] 06-14-2024 11:12-0400 Body height 180.3 cm Lety Rothman MD Work Phone: [facility] 06-14-2024 11:12-0400 Body mass index (BMI) [Ratio] 29.15 kg/m2 Lety Rothman MD Work Phone: [facility] 06-14-2024 11:12-0400 Body weight 94.8 kg Lety Rothman MD Work Phone: [facility] 06-14-2024 11:12-0400 Diastolic blood pressure 78 mm[Hg] Lety Rothman MD Work Phone: [facility] 06-14-2024 11:12-0400 Heart rate 56 /min Lety Rothman MD Work Phone: [facility] 06-14-2024 11:12-0400 Respiratory rate 16 /min Lety Rothman MD Work Phone: [facility] 06-14-2024 11:12-0400 Systolic blood pressure 152 mm[Hg] Lety Rothman MD Work Phone: [facility] Healthcare Encounters Encounter Date Encounter Type Care Provider Facility Start: 12-25-2024 End: 12-26-2024 Telephone encounter Lety Rothman MD Work Phone: [facility] Comment on above: Med Refill Start: 12-21-2024 End: 12-21-2024 Bamboo flowsheet Lety Rothman MD Work Phone: [facility] Start: 12-21-2024 End: 12-21-2024 Bamboo flowsheet Lety Rothman MD Work Phone: [facility] Start: 12-21-2024 End: 12-21-2024 Office outpatient visit 25 minutes Lety Rothman MD Work Phone: [facility] Comment on above: Type 2 diabetes natalie itus with hyperglycemia, with long-term current use of insulin ([facility]) (Primary Dx); Primary hypertension ([facility]); Encounter for dietary consultation; Insulin long-term use ([facility]); Vitamin D deficiency; Hyperlipemia, mixed ([facility]); Hypoglycemia Start: 12-21-2024 End: 12-21-2024 ambulatory LETY ROTHMAN Not Available Start: 11-21-2024 End: 11-21-2024 ambulatory Dav Cardenas Facility:[facility] Ana Laura watson Start: 11-16-2024 End: 11-16-2024 Office outpatient visit 15 minutes Adan Pearson DPM Work Phone: [facility] Comment on above: Contusion of left fo ot, initial encounter (Primary Dx); Diabetes mellitus due to underlying condition with diabetic polyneuropathy, without long-term current use of insulin ([facility]); Pain due to onychomycosis of toenails of both feet Start: 11-16-2024 End: 11-16-2024 Bamboo flowsheet Adan Pearson DPM Work Phone: [facility] Start: 11-16-2024 End: 11-16-2024 Bamboo flowsheet Adan Pearson DPM Work Phone: [facility] Start: 11-16-2024 End: 11-16-2024 ambulatory ADAN PEARSON Not Available Start: 10-27-2024 ambulatory Dav Cardenas Facility:[facility] Start: 06-14-2024 End: 06-14-2024 Bamboo flowsheet Lety Rothman MD Work Phone: [facility] Start: 06-14-2024 End: 06-14-2024 Bamboo flowsheet Lety Rothman MD Work Phone: [facility] Start: 06-14-2024 End: 06-14-2024 Office outpatient visit 25 minutes Lety Rothman MD Work Phone: [facility] Comment on above: Hypoglycemia (Primar y Dx); Type 2 diabetes mellitus with hyperglycemia, with long-term current use of insulin ([facility]); Primary hypertension ([facility]); Encounter for dietary consultation; Insulin long-term use ([facility]); Vitamin D deficiency; Hyperlipemia, mixed ([facility]) Start: 06-14-2024 End: 06-14-2024 ambulatory LETY ROTHMAN Not Available Start: 04-18-2024 End: 04-18-2024 ambulatory CORY ALBRIGHT Not Available Start: 11-25-2022 End: 11-25-2022 ambulatory KYLIE HAM . Facility: Start: 09-09-2022 End: 09-09-[address] JAY JAY BERGMAN Facility: Start: 05-07-2022 End: 05-12-2022 ambulatory NONE LISTED REQUEST Facility:[facility] Start: 04-18-[address] DOCTOR ALCALA Facility :[facility] Start: 04-15-[address] DOCTOR ALCALA Facility :[facility] Start: 04-14-2022 End: 04-15-[address] DOCTOR ALCALA Facility:[facility] Start: 04-09-2022 End: 04-10-[address] DOCTOR ALCALA Facility:[facility] Start: 03-27-2022 End: 04-02-2022 Evaluation and management of inpatient [facility] Facility:[facility] Procedures Date Procedure Procedure Detail Performing Clinician Start: 12-21-2024 Gluc bld gluc mntr d ev cleared fda spec home use Lety Rothman MD Work Phone: Start: 06-14-2024 End: 06-14-2024 Gluc bld gluc mntr dev cleared fda spec home use Lety Rothman MD Work Phone: Start: 03-28-2022 Drainage of Perineum Skin, External Approach [facility] Start: 03-09-2017 Mammography Lety motta MD Work Phone: Plan of Treatment Date Care Activity Detail Author Start: 04-19-2025 End: 04-19-2025 Patient encounter procedure 04/19/2025 10:50 AM EDT Office Visit [facility] [address] [place] [phone] Lety Rothman MD [address] [place] [address] [facility] Start: 01-25-2025 End: 01-25-2025 Patient encounter procedure 01/25/2025 1:20 PM EDT Office Visit [facility] [address] [facility] [address] [place] [address] Adan Pearson DPM [address] [facility] [address] [place] [address] [facility] Start: 12-21-2024 End: 12-21-2024 Patient encounter procedure 12/21/2024 10:50 AM EDT Office Visit [facility] [address] [place] [address] Lety Rothman MD [address] [place] [address] Type 2 diabetes mellitus with hyperglycemia, with long-term current use of insulin ([facility]) [facility] Comment on above: Type 2 diabetes natalie itus with hyperglycemia, with long-term current use of insulin ([facility]) Start: 12-06-2024 End: 12-06-2024 Patient encounter procedure 12/06/2024 11:10 AM EDT Office Visit [facility] [address] [place] [address] Lety Rothman MD [address] [place] [address] [facility] Start: 11-16-2024 End: 11-16-2024 Patient encounter procedure 11/16/2024 2:30 PM EST Office Visit [facility] [address] [facility] [address] [place] [phone] Adan Pearson, DPSuraj [address] [facility] [address] [place] [address] Arrived [facility] Comment on above: Arrived Start: 09-27-2024 End: 09-27-2024 Patient encounter procedure 09/27/2024 10:50 AM EST Office Visit [facility] [address] [place] [id number] Lety Rothman MD [address] [place] [address] [facility] Start: 08-17-2024 End: 08-17-2024 Patient encounter procedure 08/17/2024 10:45 AM EST Procedure Visit [facility] [address] [place] [id number] Cory Albright DPM [address] [place], [place] [id number] [facility] Start: 06-14-2024 End: 06-14-2025 25-hydroxyvitamin D3 [Mass/volume] in Serum or Plasma Vitamin D 25 hydroxy Total Lab Routine Type 2 diabetes mellitus with hyperglycemia, with long-term current use of insulin ([facility]) Expected: 06/14/2024 (Approximate), Expires: 06/14/2025 [facility] Comment on above: Expected: 06/14/2024 (Approximate), Expires: 06/14/2025 Start: 06-14-2024 End: 06-14-2025 C-peptide C-peptide Lab Routine Type 2 diabetes mellitus with hyperglycemia, with long-term current use of insulin ([facility]) Expected: 06/14/2024 (Approximate), Expires: 06/14/2025 [facility] Work Phone: Comment on above: Expected: 06/14/2024 (Approximate), Expires: 06/14/2025 Start: 06-14-2024 End: 06-14-2025 Lipid 1996 panel - Serum or Plasma Lipid panel Lab Routine Type 2 diabetes mellitus with hyperglycemia, with long-term current use of insulin ([facility]) Expected: 06/14/2024 (Approximate), Expires: 06/14/2025 [facility] Comment on above: Expected: 06/14/2024 (Approximate), Expires: 06/14/2025 Start: 06-14-2024 End: 06-14-2025 Microalbumin/Creatinin e panel in random Urine Microalbumin / creatinine urine ratio Lab Routine Type 2 diabetes mellitus with hyperglycemia, with long-term current use of insulin ([facility]) Expected: 06/14/2024 (Approximate), Expires: 06/14/2025 [facility] Comment on above: Expected: 06/14/2024 (Approximate), Expires: 06/14/2025 Start: 06-14-2024 End: 06-14-2025 Renal function panel Renal function panel Lab Routine Type 2 diabetes mellitus with hyperglycemia, with long-term current use of insulin ([facility]) Expected: 06/14/2024 (Approximate), Expires: 06/14/2025 [facility] Comment on above: Expected: 06/14/2024 (Approximate), Expires: 06/14/2025 Start: 06-14-2024 End: 06-14-2024 Patient encounter procedure 06/14/2024 10:40 AM EDT Office Visit [facility] [address] [place] [address] Lety Rothman MD [address] [place] [address] Type 2 diabetes mellitus with hyperglycemia, with long-term current use of insulin ([facility]) [facility] Comment on above: Type 2 diabetes natalie itus with hyperglycemia, with long-term current use of insulin ([facility]) Start: 05-14-2024 Influenza vaccination Influenza Vacc ine (#1) [facility] Start: 06-19-2023 Pneumococcal Vaccine : 65+ Years (2 of 2 - PCV) Pneumococcal Vaccine: 65+ Years (2 of 2 - PCV) [facility] Start: 03-09-2018 Screening for malignant neoplasm of breast Mammogram [facility] Start: 1955 Screening for malignant neoplasm of colon [facility] Immunizations Immunization Date Immunization Notes Care Provider Fa cility 06-03-2024 influenza virus vacc ine, unspecified formulation Lety Rothman MD Work Phone: [facility] 01-21-2024 zoster vaccine recombinant A hmad Briana GARCIA Work Phone: [facility] 06-16-2023 ABRYSVO - Respirator y syncytial virus (RSV), vaccine, bivalent, protein subunit RSV prefusion F, diluent reconstituted, 0.5 mL, PF Lety Rothman MD Work Phone: [facility] 06-16-2023 Influenza, High-dose Seasonal, Quadrivalent, Preservative Free Lety Rothman MD Work Phone: [facility] 06-16-2023 SARS-COV-2 (COVID-19 ) vaccine, mRNA, spike protein, LNP, PF, 50 mcg/0.5 mL Lety Rothman MD Work Phone: [facility] 06-16-2023 zoster vaccine recombinant A hmad Briana GARCIA Work Phone: [facility] 06-19-2022 Influenza, High-dose Seasonal, Quadrivalent, Preservative Free Lety Rothman MD Work Phone: [facility] 06-19-2022 pneumococcal polysaccharide vaccine, 23 valent Lety Rothman MD Work Phone: [facility] 06-19-2022 SARS-COV-2 (COVID-19 ) vaccine, mRNA, spike protein, LNP, bivalent, preservative free, 30 mcg/0.3 mL dose, emiliano-sucrose formulation Lety oRthman MD Work Phone: [facility] 05-07-2022 diphtheria, tetanus toxoids and pertussis vaccine Lety Rothman MD Work Phone: [facility] 09-02-2021 Pfizer Purple Cap SARS-CoV-2 Vaccination Lety Rothman MD Work Phone: [facility] 12-10-2020 Pfizer Purple Cap SARS-CoV-2 Vaccination Lety Rothman MD Work Phone: [facility] 11-18-2020 Pfizer Purple Cap SARS-CoV-2 Vaccination Lety Rothman MD Work Phone: [facility] 01-06-2019 tetanus toxoid, redu holley diphtheria toxoid, and acellular pertussis vaccine, adsorbed Lety Rothman MD Work Phone: [facility] 06-29-2017 influenza, injectabl e, quadrivalent, preservative free Lety Rothman MD Work Phone: [facility] 06-17-2015 influenza, seasonal, injectable, preservative free Lety Rothman MD Work Phone: [facility] 09-10-2014 influenza, injectabl e, quadrivalent, contains preservative Lety Rothman MD Work Phone: [facility] 07-22-2010 influenza, seasonal, injectable Lety Rothman MD Work Phone: [facility] Healthcare Payers Date Payer Category Payer Medicare (Managed Care) [facility]IC[facility] [id number] 2024 Medicare [id number] 2022 Medicare [employer]AGE [employer] MEDICARE [id number] 2022-Present [address] [address] [place] [address] [id number] 2020 Medicare [id number] 1961 Medicare [id number] 1955 Unknown [id number] 1955 Unknown [id number] .[id number]. 2.593 1953 Unknown [id number] [id number]. 2.593 1955 Unknown [id number] [id number]. 2.593 1953 Unknown [id number] 2.16.840.1.027328.3.579. 2.593 1953 Unknown [id number] 2.16.840.1.145153.3.579. 2.593 1953 Unknown [id number] [id number]. 2.593 1953 Unknown [id number] 2.16.840.1.425826.3.579. 2.593 1953 Unknown [id number] 2.16.840.1.317454.3.579. 2.727 1953 Unknown [id number] 2.16.840.1.494784.3.579. 2.1259 1955 Unknown [id number] [id number]. 2.1259 1955 Unknown [id number] [id number]. 2.1259 1955 Unknown [id number]. 2.1259 Social History Date Type Detail Facility Start: 04-20-2023 Tobacco smoking status MEIS Ex-smoke r [facility] History of tobacco use Current smoker [facility] History of tobacco use Cigarette Smoker [facility] History of tobacco use Passive smoker [facility] Start: 05-29-2024 End: 11-16-2024 Alcoholic beverage intake [facility] Start: 04-18-2024 End: 11-16-2024 History of Social function [facility] Start: 04-18-2024 End: 11-16-2024 Tobacco use panel [facility] Start: 04-20-2023 Tobacco Comment Last smoked: 1-3 mon ths [facility] Start: 04-20-2023 Alcohol Comment caffeine: 2-3 cups/d ay [facility] Healthcare Start: 1955 Sex assigned at Not on file [facility] Medical Equipment Procedure Code Equipment Code Equipment Origin al Text Equipment Identifier Dates Start: 04-18-2023 Clinical Notes 05-07-2022 to 12-25-2024 Telephone Encounter - Marin Navarro - 12/25/2024 3:56 PM EDTTelephone Encounter - Marin Melanie - 12/25/2024 3:56 PM EDTTelephone Encounter - Marin Fieldarthy - 12/25/2024 1:04 PM EDT Note Date & Type Note Facility 12-25-2024 Telephone encount er Note Please send zofran to Marce kramer instead of ronni my mistake sorry! [facility] 12-25-2024 Miscellaneous Notes Formattin g of this note might be different from the original. Please send zofran to Marce kramer instead of ronni my mistake sorry! documented in this encounter [facility] 12-25-2024 Telephone encount er Note Pt needs zofran for nausea, accidentally took .5 instead of .25 for first dose of ozempic. Please send to Marce Rudolph. Thank you! [facility] 12-25-2024 Miscellaneous Notes Formattin g of this note might be different from the original. Pt needs zofran for nausea, accidentally took .5 instead of .25 for first dose of ozempic. Please send to Marce Rudolph. Thank you! documented in this encounter [facility] 12-12-2024 History of Presen t illness Narrative Morelia Godoy is a 69 y.o. female Lety Rothman MD presents with chief complaint of Diabetes and Follow-up HPI: IM : 12/2024 follow up visit on 12/21/2024 A1c 12.3 , bg 430, on lantus 30units once qhs, novolog 10 units once daily , farxia 10 mg daily. neuropathy on gabapentin, asking for ozepmic. IM : 06/2024 follow up visit on 06/14/2024 A1c 15 , bg 520, off lantus 22units once qhs, off novolog 10 units bid , farxia 10 mg daily. neuropathy on gabapentin, said she off because has lows IM : 08/2023 follow up visit on 08/31/2023 A1c 11.3 , bg 349, on lantus 22units once qhs, novolog 10 units bid , farxia 10 mg daily. neuropathy on gabapentin IM : 04/2023 follow up visit on 05/13/2023 A1c 11.5 , bg 316, on lantus 30 units once qhs, novolog 10 units bid , farxia 10 mg daily. had sever neuropathy. IM : 12/2022 follow up visit on 01/07/2023 A1c 10.7 , bg 198, on lantus 20 units bid, novolog 10 units bid , farxia 10 mg daily. no new lab IM : 09/2022 follow up visit on 09/28/2022 A1c 9.4, bg 231, no lab. on lantus 20 units, novolog ISS olny 6-8 units , farxia 10 mg daily. HPI: 04/2022 New patient sent from Dr. Yessica Sheffield for uncontrolled diabetes, A1c in our office 12.5, blood sugars 229. She has diabetic ketoacidosis, the hospital due to missing medication for couple months, and after that she is currently on Lantus only 30 twice a day. She used to be on Januvia, metformin. I do not know what her kidney function. She has history of stroke with tremor in her right hand. She is on wheelchair. SUBJECTIVE: MEDICATIONS: Current Outpatient Medications Medication Instructions Accu-Chek Guide test strip albuterol 108 (90 Base) MCG/ACT inhaler 2 puffs, Every 6 hours PRN aspirin 81 mg, Daily atorvastatin (LIPITOR) 80 mg, Daily bisacodyl (Dulcolax) 10 MG suppository Insert into the rectum. buPROPion SR (WELLBUTRIN SR) 150 mg, 2 times daily busPIRone (BUSPAR) 15 mg, Every 12 hours cefuroxime (CEFTIN) 500 mg, 2 times daily cephalexin (KEFLEX) 500 mg, Every 6 hours cyanocobalamin (VITAMIN B-12) 1,000 mcg, Daily cyproheptadine (PERIACTIN) 4 mg dapagliflozin (FARXIGA) 10 mg, Oral, Daily docusate sodium (COLACE) 100 mg, 2 times daily doxycycline (VIBRAMYCIN) 100 mg, Every 12 hours Enoxaparin Sodium 100 MG/ML solution prefilled syringe Inject as directed. ferrous sulfate 325 mg, Daily with breakfast FLUoxetine (PROZAC) 10 mg, Daily gabapentin (NEURONTIN) 300 mg, 3 times daily Gvoke HypoPen 1-Pack 1 mg, Subcutaneous, Once as needed HYDROcodone-acetaminophen (Waterman) 7.5-325 MG tablet No dose, route, or frequency recorded. hyoscyamine (LEVSIN) 125 mcg, Every 4 hours PRN insulin glargine (Lantus SoloStar) 100 UNIT/ML pen INJECT 20 UNITS UNDER THE SKIN EVERY MORNING insulin lispro (HUMALOG KWIKPEN) 10 Units, Subcutaneous, 3 times daily with meals isosorbide mononitrate ER (IMDUR) 30 mg, Daily Lantus SoloStar 30 Units, Subcutaneous, Nightly lisinopril 20 mg, Daily melatonin 5 MG tablet Every 24 hours metoprolol succinate XL (TOPROL-XL) 50 mg nitroglycerin (NITROSTAT) 0.4 mg, Every 5 min PRN NovoLOG FLEXPEN 100 UNIT/ML pen 3 mL, 3 times daily with meals nystatin (Mycostatin) 613202 UNIT/GM powder 2-3 application , As needed ondansetron (Zofran) 4 MG tablet Take by mouth. Ozempic (0.25 or 0.5 MG/DOSE) 0.5 mg, Subcutaneous, Weekly pantoprazole (PROTONIX) 40 mg, Daily before breakfast polyethylene glycol, PEG, 3350 (Miralax) 17 g packet Take by mouth. prazosin (MINIPRESS) 2 mg, Nightly ALLERGIES: Allergies Allergen Reactions Dextromethorphan-Guaifenesin Cough/cold/allergy-CHEST PAIN Guaifenesin Er Other Reaction(s): Chest pain Oxycodone-Acetaminophen GI intolerance Past Medical History: Diagnosis Date Allergic rhinitis Anxiety Bronchitis Chest pain Depression ([facility]) Dermatophytosis Diabetes ([facility]) Dietary counseling and surveillance Dyspnea and respiratory abnormality HTN (hypertension) ([facility] Hyperlipidemia ([facility]) Hyponatremia Insomnia Keratomycosis nigricans palmaris longterm (current) use of insulin ([facility]) Nonrheumatic aortic (valve) stenosis Otogenic pain PTSD (post-traumatic stress disorder) ([facility] Stroke ([facility]) tremor in right hand Type 2 diabetes mellitus with hyperglycemia ([facility]) Vitamin D deficiency Wheelchair dependent Past Surgical History: Procedure Laterality Date HEMORRHOID SURGERY HYSTERECTOMY OTHER SURGICAL HISTORY child x2 REVIEW OF SYMPTOMS: 14 POINT OF SYSTEM REVIEWED AND NEGATIVE OBJECTIVE: Constitutional: Afebrile @ home; no weakness or night sweats SKIN: No change in skin color; no itching, rash or lesions; no hair loss; HEENT: No HAs or injury; no dizziness; No difficulty with vision; no eye pain, discharge or lesions; no hearing loss or difficulty; no nasal discharge, NECK: No pain, limitation of motion, lumps or swollen glands RESP: No cough, wheezing or difficulty breathing. No CP with breathing; CARDIO: No CP , SOB or fatigue, No edema, palpitations or dyspnea with exertion GI: No N/V/D or abd. pain; good appetite with no recent change. No heart burn, liver or gallbladder disease; no rectal bleeding or pain : No urinary pain , frequency or odor. MUSCULOSKELETAL: No muscle pain or cramps; no extremity weakness.No joint pain, stiffness, swelling or limitation of movement NEUROLOGY: No H/O seizures, stroke or fainting. No weakness, tremors. Hematology: No bleeding problems or excessive bruising ENDOCRINE: No increase in hunger, thirst or urination; admits compliance to medical management plan Feet: numbness tingling , ulcers or skin break Lab Results Component Value Date HGBA1C 12.3 12/21/2024 HGBA1C >15 06/14/2024 Lab Results Component Value Date GLU 432 12/21/2024 GLU 520 06/14/2024 GLU 395 (H) 06/05/2023 Visit Vitals BP 124/66 Pulse 55 Resp 16 Ht 5' 10 Wt 205 lb SpO2 97% BMI 29.41 kg/m Smoking Status Former BSA 2.14 m ASSESSMENT AND PLAN: Assessment/Plan Diagnoses and all orders for this visit: Type 2 diabetes mellitus with hyperglycemia, with long-term current use of insulin ([facility]) - POCT glucose manually resulted - POCT glycosylated hemoglobin (Hb A1C) docked device - semaglutide (Ozempic, 0.25 or 0.5 MG/DOSE,) 2 MG/1.5ML solution pen-injector; Inject 0.5 mg under the skin 1 (one) time per week - insulin glargine (Lantus SoloStar) 100 UNIT/ML pen; Inject 30 Units under the skin at bedtime - insulin lispro (HumaLOG KWIKPEN) 100 UNIT/ML injection; Inject 10 Units under the skin in the morning and 10 Units at noon and 10 Units in the evening. Inject with meals. - dapagliflozin (Farxiga) 10 MG; Take 1 tablet (10 mg) by mouth Daily Continue Lantus 30 units, increase Humalog to 10 units twice a day, continue with Farxiga, I will add Ozempic sample given for 0.25 mg I will send 0.5 mg once weekly. Primary hypertension (CMS/HCC) Encounter for dietary consultation Insulin long-term use ([facility]) Vitamin D deficiency Hyperlipemia, mixed ([facility]) Hypoglycemia Follow up in about 4 months (around 04/22/2025). documented in this encounter [facility] 06-14-2024 History of Presen t illness Narrative Morelia Godoy is a 68 y.o. female Lety Rothman MD presents with chief complaint of Diabetes and Follow-up HPI: IM : 06/2024 follow up visit on 06/14/2024 A1c 15 , bg 520, off lantus 22units once qhs, off novolog 10 units bid , farxia 10 mg daily. neuropathy on gabapentin, said she off because has lows IM : 08/2023 follow up visit on 08/31/2023 A1c 11.3 , bg 349, on lantus 22units once qhs, novolog 10 units bid , farxia 10 mg daily. neuropathy on gabapentin IM : 04/2023 follow up visit on 05/13/2023 A1c 11.5 , bg 316, on lantus 30 units once qhs, novolog 10 units bid , farxia 10 mg daily. had sever neuropathy. IM : 12/2022 follow up visit on 01/07/2023 A1c 10.7 , bg 198, on lantus 20 units bid, novolog 10 units bid , farxia 10 mg daily. no new lab IM : 09/2022 follow up visit on 09/28/2022 A1c 9.4, bg 231, no lab. on lantus 20 units, novolog ISS olny 6-8 units , farxia 10 mg daily. HPI: 04/2022 New patient sent from Dr. Yessica Sheffield for uncontrolled diabetes, A1c in our office 12.5, blood sugars 229. She has diabetic ketoacidosis, the hospital due to missing medication for couple months, and after that she is currently on Lantus only 30 twice a day. She used to be on Januvia, metformin. I do not know what her kidney function. She has history of stroke with tremor in her right hand. She is on wheelchair. SUBJECTIVE: MEDICATIONS: Current Outpatient Medications Medication Instructions Accu-Chek Guide test strip albuterol 108 (90 Base) MCG/ACT inhaler 2 puffs, Inhalation, Every 6 hours PRN aspirin 81 mg, Oral, Daily atorvastatin (LIPITOR) 80 mg, Oral, Daily bisacodyl (Dulcolax) 10 MG suppository Rectal buPROPion SR (WELLBUTRIN SR) 150 mg, Oral, 2 times daily, Do not crush, chew, or split. busPIRone (BUSPAR) 15 mg, Oral, Every 12 hours cefuroxime (CEFTIN) 500 mg, Oral, 2 times daily cephalexin (KEFLEX) 500 mg, Oral, Every 6 hours cyanocobalamin (VITAMIN B-12) 1,000 mcg, Oral, Daily cyproheptadine (PERIACTIN) 4 mg, Oral dapagliflozin (FARXIGA) 10 mg, Oral, Daily docusate sodium (COLACE) 100 mg, Oral, 2 times daily doxycycline (VIBRAMYCIN) 100 mg, Every 12 hours Enoxaparin Sodium 100 MG/ML solution prefilled syringe Injection ferrous sulfate 325 mg, Oral, Daily with breakfast FLUoxetine (PROZAC) 10 mg, Oral, Daily gabapentin (NEURONTIN) 300 mg, Oral, 3 times daily HYDROcodone-acetaminophen (Waterman) 7.5-325 MG tablet No dose, route, or frequency recorded. hyoscyamine (LEVSIN) 125 mcg, Oral, Every 4 hours PRN insulin glargine (LANTUS) 20 Units, Subcutaneous, Every morning insulin lispro (HUMALOG KWIKPEN) 4 Units, Subcutaneous, 3 times daily with meals isosorbide mononitrate ER (IMDUR) 30 mg, Oral, Daily, Do not crush or chew. lisinopril 20 mg, Oral, Daily melatonin 5 MG tablet Every 24 hours metoprolol succinate XL (TOPROL-XL) 50 mg, Oral, Do not crush or chew. nitroglycerin (NITROSTAT) 0.4 mg, Sublingual, Every 5 min PRN NovoLOG FLEXPEN 100 UNIT/ML pen 3 mL, Subcutaneous, 3 times daily with meals nystatin (Mycostatin) 010783 UNIT/GM powder 2-3 application , Topical, As needed ondansetron (Zofran) 4 MG tablet Oral pantoprazole (PROTONIX) 40 mg, Oral, Daily before breakfast, Do not crush, chew, or split. polyethylene glycol, PEG, 3350 (Miralax) 17 g packet Oral prazosin (MINIPRESS) 2 mg, Oral, Nightly ALLERGIES: Allergies Allergen Reactions Dextromethorphan-Guaifenesin Cough/cold/allergy-CHEST PAIN Guaifenesin Er Other Reaction(s): Chest pain Oxycodone-Acetaminophen GI intolerance Past Medical History: Diagnosis Date Allergic rhinitis Anxiety Bronchitis Chest pain Depression ([facility]) Dermatophytosis Diabetes ([facility]) Dietary counseling and surveillance Dyspnea and respiratory abnormality HTN (hypertension) ([facility]) Hyperlipidemia ([facility]) Hyponatremia Insomnia Keratomycosis nigricans palmaris 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 ([facility]) Nonrheumatic aortic (valve) stenosis Otogenic pain PTSD (post-traumatic stress disorder) ([facility] Stroke ([facility]) tremor in right hand Type 2 diabetes mellitus with hyperglycemia ([facility]) Vitamin D deficiency Wheelchair dependent Past Surgical History: Procedure Laterality Date HEMORRHOID SURGERY HYSTERECTOMY OTHER SURGICAL HISTORY child x2 REVIEW OF SYMPTOMS: 14 POINT OF SYSTEM REVIEWED AND NEGATIVE OBJECTIVE: Constitutional: Afebrile @ home; no weakness or night sweats SKIN: No change in skin color; no itching, rash or lesions; no hair loss; HEENT: No HAs or injury; no dizziness; No difficulty with vision; no eye pain, discharge or lesions; no hearing loss or difficulty; no nasal discharge, NECK: No pain, limitation of motion, lumps or swollen glands RESP: No cough, wheezing or difficulty breathing. No CP with breathing; CARDIO: No CP , SOB or fatigue, No edema, palpitations or dyspnea with exertion GI: No N/V/D or abd. pain; good appetite with no recent change. No heart burn, liver or gallbladder disease; no rectal bleeding or pain : No urinary pain , frequency or odor. MUSCULOSKELETAL: No muscle pain or cramps; no extremity weakness.No joint pain, stiffness, swelling or limitation of movement NEUROLOGY: No H/O seizures, stroke or fainting. No weakness, tremors. Hematology: No bleeding problems or excessive bruising ENDOCRINE: No increase in hunger, thirst or urination; admits compliance to medical management plan Feet: numbness tingling , ulcers or skin break Lab Results Component Value Date HGBA1C >15 06/14/2024 Lab Results Component Value Date GLU 520 06/14/2024 GLU 395 (H) 06/05/2023 GLU 433 (HH) 04/10/2022 Visit Vitals BP 152/78 Pulse 56 Resp 16 Ht 5' 11 Wt 209 lb BMI 29.15 kg/m Smoking Status Former BSA 2.18 m ASSESSMENT AND PLAN: Assessment/Plan Diagnoses and all orders for this visit: Type 2 diabetes mellitus with hyperglycemia, with long-term current use of insulin ([facility]) - POCT glucose manually resulted - POCT glycosylated hemoglobin (Hb A1C) docked device - dapagliflozin (Farxiga) 10 MG; Take 1 tablet (10 mg) by mouth Daily - insulin glargine (Lantus) 100 UNIT/ML injection; Inject 20 Units under the skin in the morning. - insulin lispro (HumaLOG KWIKPEN) 100 UNIT/ML injection; Inject 4 Units under the skin in the morning and 4 Units at noon and 4 Units in the evening. Inject with meals. - C-peptide; Future - Vitamin D 25 hydroxy Total; Future - Microalbumin / creatinine urine ratio; Future - Lipid panel; Future - Renal function panel; Future I will started her on Lantus 20 units in the morning, Humalog lower dose 4 units every meal, no sliding scale, continue with Farxiga 10 mg once daily all prescriptions sent Primary hypertension ([facility]) Encounter for dietary consultation Insulin long-term use (CMS/HCC) Vitamin D deficiency Hyperlipemia, mixed (CMS/HCC) Hypoglycemia Follow up in about 3 months (around 09/14/2024). documented in this encounter [facility] 05-07-2022 Note PROCEDURE: XR SHOULD ER LT 2V or >, XR HUMERUS LT MIN 2V HISTORY: Unspecified fall ; acute left shoulder pain COMPARISON: None. FINDINGS: BONES:Slightly irregular appearance of the greater tuberosity and surgical neck of the humerus concerning for nondisplaced fracture. SOFT TISSUES:No visible soft tissue swelling. EFFUSION:None visible. OTHER: Negative. IMPRESSION: 1. Suspect nondisplaced fracture of the left humeral head involving the greater tuberosity and surgical neck. CT imaging of the shoulder for confirmation could be considered. Electronically authenticated by: TEJAS CHRISTOPHER Date: 2022-05-07 14:47 [facility] 05-07-2022 Note PROCEDURE: XR SHOULD ER LT 2V or >, XR HUMERUS LT MIN 2V HISTORY: Unspecified fall ; acute left shoulder pain COMPARISON: None. FINDINGS: BONES:Slightly irregular appearance of the greater tuberosity and surgical neck of the humerus concerning for nondisplaced fracture. SOFT TISSUES:No visible soft tissue swelling. EFFUSION:None visible. OTHER: Negative. IMPRESSION: 1. Suspect nondisplaced fracture of the left humeral head involving the greater tuberosity and surgical neck. CT imaging of the shoulder for confirmation could be considered. Electronically authenticated by: TEJAS CHRISTOPHER Date: 2022-05-07 14:47 [facility] Evaluation note Diagnosis Hypoglycemia- Primary Hypoglycemia, unspecified Type 2 diabetes mellitus with hyperglycemia, with long-term current use of insulin (CMS/HCC) Primary hypertension (CMS/HCC) Unspecified essential hypertension Encounter for dietary consultation Insulin long-term use (CMS/HCC) Encounter for long-term (current) use of insulin Vitamin D deficiency Hyperlipemia, mixed (CMS/HCC) Mixed hyperlipidemia documented in this encounter [facility] HealthcareEvaluation note* Diagnosis Contusion of left foot, initial encounter- Primary Diabetes mellitus due to underlying condition with diabetic polyneuropathy, without long-term current use of insulin ([facility]) Pain due to onychomycosis of toenails of both feet documented [facility]* Diagnosis Type 2 diabetes mellitus with hyperglycemia, with long-term current use of insulin ([facility])- Primary Primary hypertension ([facility]) Unspecified essential hypertension Encounter for dietary consultation Insulin long-term use ([facility]) Encounter for long-term (current) use of insulin Vitamin D deficiency Hyperlipemia, mixed ([facility]) Mixed hyperlipidemia Hypoglycemia Hypoglycemia, unspecified documented [facility]* Diagnosis Type 2 diabetes mellitus with hyperglycemia, with long-term current use of insulin ([facility])- Primary documented in this encounter [facility]* Diagnosis Type 2 diabetes mellitus with hyperglycemia, with long-term current use of insulin ([facility]) documented [facility] of [facility] Narrative* Adan Pearson, DEANNA - 11/16/2024 2:30 PM EST Patient: Morelia Conte Walt : 1955 PCP: Yessica Sheffield MD SUBJECTIVE This is a 69 y.o. female that presents today with a CC of elongated, thick nails. Pt states nails have been elongated and thick for many years and cause pain with ambulation in shoegear. Pt has tried previous treatment with minimal relief. Pt presents today for nail care and treatment. Patient is DM2 Patient states she had a black lesion to the left great toe for the past few weeks and states that she does not recall any injury and denies any drainage from the toe. Patient denies n/f/v/c. Denies treatment Allergies: Allergies Allergen Reactions Dextromethorphan-Guaifenesin Cough/cold/allergy-CHEST PAIN Guaifenesin Er Other Reaction(s): Chest pain Oxycodone-Acetaminophen GI intolerance Past Medical History: Past Medical History: Diagnosis Date Allergic rhinitis Anxiety Bronchitis Chest pain Depression ([facility]) Dermatophytosis Diabetes ([facility] [facility]) Dietary counseling and surveillance Dyspnea and respiratory abnormality HTN (hypertension) ([facility]) Hyperlipidemia ([facility]) Hyponatremia Insomnia Keratomycosis nigricans palmaris longterm (current) use of insulin ([facility]) Nonrheumatic aortic (valve) stenosis Otogenic pain PTSD (post-traumatic stress disorder) ([facility]) Stroke ([facility]) tremor in right hand Type 2 diabetes mellitus with hyperglycemia ([facility]) Vitamin D deficiency Wheelchair dependent Medications: Current Outpatient Medications: Accu-Chek Guide test strip, , Disp: , Rfl: albuterol 108 (90 Base) MCG/ACT inhaler, Inhale 2 puffs every 6 (six) hours if needed for wheezing., Disp: , Rfl: aspirin 81 MG EC tablet, Take 81 mg by mouth in the morning., Disp: , Rfl: atorvastatin (Lipitor) 80 MG tablet, Take 80 mg by mouth in the morning., Disp: , Rfl: bisacodyl (Dulcolax) 10 MG suppository, Insert into the rectum., Disp: , Rfl: buPROPion SR (Wellbutrin SR) 150 MG 12 hr tablet, Take 150 mg by mouth in the morning and 150 mg before bedtime. Do not crush, chew, or split. ., Disp: , Rfl: busPIRone (Buspar) 15 MG tablet, Take 15 mg by mouth every 12 (twelve) hours., Disp: , Rfl: cefuroxime (Ceftin) 500 MG tablet, Take 500 mg by mouth in the morning and 500 mg before bedtime., Disp: , Rfl: cephalexin (Keflex) 500 MG capsule, Take 500 mg by mouth every 6 (six) hours., Disp: , Rfl: cyanocobalamin (Vitamin B-12) 1000 MCG tablet, Take 1,000 mcg by mouth in the morning., Disp: , Rfl: cyproheptadine (Periactin) 4 MG tablet, Take 4 mg by mouth., Disp: , Rfl: dapagliflozin (Farxiga) 10 MG, Take 1 tablet (10 mg) by mouth Daily, Disp: 30 tablet, Rfl: 2 docusate sodium (Colace) 100 MG capsule, Take 100 mg by mouth in the morning and 100 mg before bedtime., Disp: , Rfl: doxycycline (Vibramycin) 100 MG capsule, 100 mg every 12 (twelve) hours., Disp: , Rfl: Enoxaparin Sodium 100 MG/ML solution prefilled syringe, Inject as directed., Disp: , Rfl: ferrous sulfate 325 (65 Fe) MG tablet, Take 325 mg by mouth in the morning. Take with meals., Disp:, Rfl: FLUoxetine (PROzac) 10 MG capsule, Take 10 mg by mouth in the morning., Disp: , Rfl: gabapentin (Neurontin) 300 MG capsule, Take 300 mg by mouth in the morning and 300 mg in the evening and 300 mg before bedtime., Disp: , Rfl: glucagon (Gvoke HypoPen 1-Pack) 1 MG/0.2ML injection, Inject 0.2 mL (1 mg) under the skin 1 (one) time if needed for low blood sugar, Disp: 0.2 Unspecified, Rfl: 1 HYDROcodone-acetaminophen (Waterman) 7.5-325 MG tablet, , Disp: , Rfl: hyoscyamine (Levsin) 0.125 MG/5ML elixir, Take 125 mcg by mouth every 4 (four) hours if needed for bladder spasms., Disp: , Rfl: insulin glargine (Lantus SoloStar) 100 UNIT/ML pen, INJECT 20 UNITS UNDER THE SKIN EVERY MORNING, Disp: 15 mL, Rfl: 3 insulin glargine (Lantus SoloStar) 100 UNIT/ML pen, INJECT UNDER THE SKIN 30 UNITS EVERY MORNING, Disp: 30 mL, Rfl: 1 insulin lispro (HumaLOG KWIKPEN) 100 UNIT/ML injection, Inject 4 Units under the skin in the morning and 4 Units at noon and 4 Units in the evening. Inject with meals., Disp: 10.8 mL, Rfl: 1 isosorbide mononitrate ER (Imdur) 30 MG 24 hr tablet, Take 30 mg by mouth in the morning. Do not crush or chew. ., Disp: , Rfl: lisinopril 20 MG tablet, Take 20 mg by mouth in the morning., Disp: , Rfl: melatonin 5 MG tablet, 1 (one) time each day at the same time., Disp: , Rfl: metoprolol succinate XL (Toprol-XL) 50 MG 24 hr tablet, Take 50 mg by mouth. Do not crush or chew.,Disp: , Rfl: nitroglycerin (Nitrostat) 0.4 MG SL tablet, Place 0.4 mg under the tongue every 5 (five) minutes ifneeded for chest pain., Disp: , Rfl: NovoLOG FLEXPEN 100 UNIT/ML pen, Inject 3 mL under the skin in the morning and 3 mL at noon and 3 mL in the evening. Inject with meals., Disp: , Rfl: nystatin (Mycostatin) 912761 UNIT/GM powder, Apply 2-3 application topically if needed for rash, Disp: , Rfl: ondansetron (Zofran) 4 MG tablet, Take by mouth., Disp: , Rfl: pantoprazole (ProtoNix) 40 MG EC tablet, Take 40 mg by mouth in the morning. Take before meals. Do not crush, chew, or split. ., Disp: , Rfl: polyethylene glycol, PEG, 3350 (Miralax) 17 g packet, Take by mouth., Disp: , Rfl: prazosin (Minipress) 2 MG capsule, Take 2 mg by mouth at bedtime., Disp: , Rfl: Social History: Social History Socioeconomic History Marital status: Spouse name: Not on file Number of children: Not on file Years of education: Not on file Highest education level: Not on file Occupational History Not on file Tobacco Use Smoking status: Former Types: Cigarettes Passive exposure: Past Smokeless tobacco: Not on file Tobacco comments: Last smoked: 1-3 months Substance and Sexual Activity Alcohol use: Not Currently Comment: caffeine: 2-3 cups/day Drug use: Never Sexual activity: Defer Other Topics Concern Not on file Social History Narrative Not on file Social Drivers of Health Financial Resource Strain: Not on file Food Insecurity: No Food Insecurity (06/07/2023) Received from [facility] Within the past 12 months we worried whether our food would run out before we got money to buy more.: Never True Within the past 12 months the food we bought just didn't last and we didn't have money to get more.: Never True Transportation Needs: Not on file Physical Activity: Not on file Stress: Not on file Social Connections: Not on file Intimate Partner Violence: Unknown (11/04/2023) [facility] from [facility] [place] Safety & Environment Fear of Current or Ex-Partner: Not on file Emotionally Abused: Not on file Physically Abused: Not on file Sexually Abused: Not on file Physically or Sexually Abused: Not on file Housing Stability: Not on file ROS: Gastrointestinal: denies abdominal pain, ulcers, or changes in appetite or bowel habits Musculoskeletal: Positive generalized arthritis to joints and denies loss of strength. Cardiovascular: denies CP, palpitations, irregular rhythms OBJECTIVE LE EXAM: DERM: Elongated thick yellow crumbly nails digits 1 through 10. Negative hair growth with thin shiny atrophic skin bilaterally. Proximal left great toe lunula area has area of dark black lesion with negative drainage or erythema noted VASC: Negative DP and negative PT pedal pulses NEURO: 5.07 [place] monofilament test diminished to digits and forefoot bilaterally 125Hz tuning fork diminished to 1st MPJ bilaterally ORTHO: Positive pain on palpation to toenails of the left 1,2,3,4,5 toes and right 1,2,3,4,5 toes ASSESSMENT 1. Contusion of left foot, initial encounter 2. Diabetes mellitus due to underlying condition with diabetic polyneuropathy, without long-term current use of insulin ([facility]) 3. Pain due to onychomycosis of toenails of both feet PLAN Discussed proper foot care with patient today. Debride nails in length and thickness digits 1 through 10 Patient educated today on proper diabetic foot care including monitoring feet daily for any signs of infection openings in the skin or irregularities to both feet. Patient had a diabetic neurologicalexam today to both their feet and discussed proper shoe gear. Patient observe for any changes in her left great toenail and informed that may start to self of ulcer if it gets red infected or draining the contact Podiatry once otherwise to monitor Adan Pearson DPM documented in this encounter[facility] Summary Purpose Family History No Family History Records FoundNo Family History Records FoundNo Family History Records Found Advance Directives No Advanced Directives Records FoundNo Advanced Directives Records FoundNo Advanced Directives Records Found Additional Source Comments INFORMATION SOURCE (unrecogn ized section and content) DATE CREATED AUTHOR 11/26/2022 [facility] DATE CREATED AUTHOR AUTHOR'S ORGANIZ ATION 11/24/2024 [facility] DATE CREATED AUTHOR AUTHOR'S ORGANIZ ATION 12/23/2024 [facility] Special[facility] EPIC Care Teams (unrecognized sec tion and content) Director Of Solutions Architecture Relationship Specialty Start Date End Date Yessica Sheffield MD [address] [place] [address] PCP - General Pediatrics 04/26/23 Director Of Solutions Architecture Relationship Specialty Start Date End Date Yessica Sheffield MD [address] [place] [address] PCP - General Pediatrics 04/26/23 Director Of Solutions Architecture Relationship Specialty Start Date End Date Yessica Sheffield MD [address] [place] [address] PCP - General Pediatrics 04/26/23 Director Of Solutions Architecture Relationship Specialty Start Date End Date Yessica Sheffield MD [address] [place] [address] PCP - General Pediatrics 04/26/23 Director Of Solutions Architecture Relationship Specialty Start Date End Date Yessica Sheffield MD [facility] [place] [place] [address] PCP - General Pediatrics 04/26/23 Director Of Solutions Architecture Relationship Specialty Start Date End Date Yessica Sheffield MD [address] [place] [address] PCP - General Pediatrics 04/26/23 Director Of Solutions Architecture Relationship Specialty Start Date End Date Yessica Sheffield MD [address] [place] [address] PCP - General Pediatrics 04/26/23 Director Of Solutions Architecture Relationship Specialty Start Date End Date Yessica Sheffield MD [address] [place], [place] [id number] PCP - General Pediatrics 04/26/23 Reason for Visit (unrecogniz ed section and content) Reason Comments Diabetes Follow-up Reason Comments DM Foot Care Dm nail care Reason Onset Date Comments Med Refill 12/25/2024 FOR RECORDS PERTAINING TO PATIENTS WHO ARE OR HAVE BEEN ENROLLED IN A CHEMICAL DEPENDENCY/SUBSTANCEABUSE PROGRAM, SOME INFORMATION MAY BE OMITTED. This clinical summary was aggregated from multiple sources. Caution should be exercised in using it in the provision of clinical care. This summary normalizes information from multiple sources, and as a consequence, information in this document may materially change the coding, format and clinical context of patient data. In addition, data may be omitted in some cases. CLINICAL DECISIONS SHOULD BE BASED ON THE PRIMARY CLINICAL RECORDS. [facility] [employer] [facility]. provides no warranty or guarantee of the accuracy or completeness of information in this document.
--- NOTE | 2025-01-01 16:27 | ECG_ITS ---
[facility] Test Date: 2025-01-01 Pat Name: DUYEN ANAYA Department: Room: - Gender: Female Shaper Hand: : 1955 Requested By: [id number] Order Number: [id number] Reading MD: YAEL ESPINOZA M.D. Measurements Intervals [place] Rate: 69 P: 63 KS: 178 QRS: -53 QRSD: 98 T: 81 QT: 412 QTc: 431 Interpretive Statements 1100 Sinus rhythm 2630 Left anterior fascicular block 3634 Inferior myocardial infarction, age undetermined 8003 Consistent with pulmonary disease 9150 abnormal ECG Compared to ECG 07/30/2023 12:39:24 Left anterior fascicular block now present Sinus bradycardia no longer present Electronically Signed On 01-01-2025 21:48:58 EDT by YAEL ESPINOZA M.D.
--- NOTE | 2025-01-01 16:28 | ED_ITS ---
HPI HPI - General Adult General Chief complaint: Nausea/Vomiting/Diarrhea Stated complaint: Nausea Time Seen by Provider: 01/01/25 16:10 Source: patient Mode of arrival: Wheelchair History of Present Illness HPI narrative: 69-year-old female presents to the emergency department for nausea vomiting and diarrhea. 8 days ago she took her first dose of Ozempic and 7 days ago her symptoms started. No hematemesis or hematochezia. No fever. She states she is not going to take that medication anymore. She is feeling weak. She does not complain to me of chest pain. Related Data Home Medications ?Medication ?Instructions ?Recorded ?Confirmed gabapentin 900 mg tablet,extended 900 mg PO QPM 05/08/23 01/01/25 release 24 hr hydrocodone 5 mg-acetaminophen 325 1 tab PO Q6H 05/08/23 01/01/25 mg tablet albuterol sulfate 90 mcg/actuation 2 puff inhalation Q4H PRN 06/28/23 01/01/25 aerosol inhaler shortness of breath or wheezing atorvastatin 80 mg tablet 80 mg PO DAILY 06/28/23 01/01/25 bupropion HCl 150 mg tablet,12 hr 150 mg PO DAILY 06/28/23 01/01/25 sustained-release buspirone 15 mg tablet 15 mg PO DAILY 06/28/23 01/01/25 dapagliflozin propanediol 10 mg 10 mg PO DAILY 06/28/23 01/01/25 tablet (Farxiga) fluoxetine 40 mg capsule 40 mg PO DAILY 06/28/23 01/01/25 insulin aspart U-100 100 unit/mL 10 unit subcut .every meal 06/28/23 01/01/25 (3 mL) subcutaneous pen (Novolog FlexPen U-100 Insulin aspart) insulin glargine 100 unit/mL (3 30 unit subcut BEDTIME 06/28/23 01/01/25 mL) subcutaneous pen (Lantus Solostar U-100 Insulin) isosorbide mononitrate 30 mg 30 mg PO DAILY 06/28/23 01/01/25 tablet,extended release 24 hr lisinopril 10 mg tablet 10 mg PO DAILY 06/28/23 01/01/25 metoprolol succinate 50 mg 50 mg PO DAILY 06/28/23 01/01/25 tablet,extended release 24 hr nitroglycerin 0.4 mg sublingual 0.4 mg sublingual Q5M PRN chest 06/28/23 06/28/23 tablet pain pantoprazole 40 mg tablet,delayed 40 mg PO DAILY 06/28/23 01/01/25 release prazosin 2 mg capsule 2 mg PO DAILY 06/28/23 01/01/25 Previous Rx's ?Medication ?Instructions ?Recorded meclizine 25 mg tablet 25 mg PO TID PRN dizziness #30 tabs 07/30/23 ondansetron 4 mg disintegrating 4 mg PO Q6H PRN nausea and 07/30/23 tablet vomiting #20 tabs Allergies Allergy/AdvReac Type Severity Reaction Status Date / Time No Known Drug Allergies Allergy Verified 01/01/25 16:17 Opioid HPI Opioid Management Most Recent Opioid Data: Last Pain Scale 8 01/01/25 17:55 01/01/25 Last NOV Pain Assessment 01/01/25 17:55 Review of Systems ROS Narrative A ten point review of systems is negative except as noted above. PFSH PFSH Social History Smoking status: Never smoker Little interest or pleasure in doing things: several days Feeling down, depressed, or hopeless: several days Exam Narrative Exam Narrative: Nurses note and vital signs reviewed and patient is not hypoxic. General: The patient appears well and in no apparent distress. Patient is resting comfortably on cart. Skin: Warm, dry, no pallor noted. There is no rash noted. Head: Normocephalic, atraumatic Eye: Normal conjunctiva, no drainage Ears, Nose, Mouth, and Throat: oral mucosa is moist. Nares patent. Cardiovascular: Regular Rate and Rhythm Respiratory: Patient is in no distress, no accessory muscle use, lungs are clear to auscultation, no wheezing, rales or rhonchi Back: non-tender GI: Soft and nontender Musculoskeletal: The patient has no evidence of calf tenderness, no pitting edema, symmetrical pulses noted bilaterally Neurological: A&O, normal speech Psychiatric: Cooperative Constitutional Vital Signs, click to edit/add: Last Vital Signs Temp 98.4 F 01/01/25 16:20 Pulse 69 01/01/25 18:30 Resp 22 H 01/01/25 18:30 BP 165/104 H 01/01/25 18:05 Pulse Ox 90 L 01/01/25 18:30 O2 Del Method Room Air 01/01/25 16:20 Course Vital Signs Vital signs: Vital Signs Temperature 98.4 F 01/01/25 16:20 Pulse Rate 72 01/01/25 16:20 Respiratory Rate 18 01/01/25 16:20 Blood Pressure 125/93 H 01/01/25 16:20 Pulse Oximetry 97 01/01/25 16:20 Oxygen Delivery Method Room Air 01/01/25 16:20 Temperature 98.4 F 01/01/25 16:20 Pulse Rate 69 01/01/25 18:30 Respiratory Rate 22 H 01/01/25 18:30 Blood Pressure 165/104 H 01/01/25 18:05 Pulse Oximetry 90 L 01/01/25 18:30 Oxygen Delivery Method Room Air 01/01/25 16:20 Medical Decision Making MDM Narrative Medical decision making narrative: Blood sugar is elevated at over 400 and she was administered IV insulin. Additionally her troponin is elevated at 234 and the repeat is pending. EKG did not show any acute changes. She appears to have a mild UTI and IV Rocephin was ordered. She does not have chest pain. Tests are pending and the patient is signed out to Dr. Tapia at change of shift. Differential Diagnosis Differential Diagnosis: Dehydration, acute kidney injury, electrolyte disturbance Lab Data Lab results reviewed: Yes I reviewed the patient's lab results Labs: Lab Results 01/01/25 01/01/25 Range/Units 16:40 16:55 WBC 9.3 (4.0-11.0) 10^3/uL RBC 4.93 (4.20-5.40) 10^6/uL Hgb 14.2 (12.0-16.0) g/dL Hct 41.5 (36.0-48.0) % MCV 84.2 (81.0-99.0) fL MCH 28.8 (26.7-34.0) pg MCHC 34.2 (29.9-35.2) g/dL RDW 13.0 (11.0-15.0) % Plt Count 261 (150-450) 10^3/uL MPV 11.2 (9.5-13.5) fL Neut % (Auto) 64.6 (43.0-75.0) % Lymph % (Auto) 25.3 (20.5-60.0) % Simpson % (Auto) 6.6 (1.7-12.0) % Eos % (Auto) 2.7 (0.9-7.0) % Baso % (Auto) 0.6 (0.2-2.0) % Neut # (Auto) 6.0 (1.4-6.5) 10^3/uL Lymph # (Auto) 2.4 (1.2-3.8) 10^3/uL Simpson # (Auto) 0.6 (0.3-0.8) 10^3/uL Eos # (Auto) 0.3 (0.0-0.7) 10^3/uL Baso # (Auto) 0.1 (0.0-0.1) 10^3/uL Abs Immat Gran (auto) 0.02 (0.00-0.03) 10^3/uL Imm/Tot Granulo (auto) 0.2 (0.0-0.5) % Sodium 132 L (136-145) mmol/L Potassium 4.9 (3.5-5.1) mmol/L Chloride 96 L (98-107) mmol/L Carbon Dioxide 25.3 (21.0-32.0) mmol/L Anion Gap 15.6 BUN 31.0 H (7.0-18.0) mg/dL Creatinine 1.19 H (0.55-1.02) mg/dL Est GFR ( Amer) 54 L (>=60 mL/min/1.73m^2) Est GFR (Non-Af Amer) 45 L (>=60 mL/min/1.73m^2) BUN/Creatinine Ratio 26.1 Glucose 436 H (74-106) mg/dL Calcium 9.5 (8.5-10.1) mg/dL Troponin I High Sens 234.4 H* (4.0-51.3) pg/mL Urine Color Lt. yellow (YELLOW) Urine Clarity Slightly cloudy A (CLEAR) Urine pH 6.0 (5.0-9.0) Ur Specific [place] 1.010 (1.005-1.025) Urine Protein Negative (NEG/TRACE) mg/dL Urine Glucose (UA) 500 A (NEGATIVE) mg/dL Urine Ketones 40 A (NEGATIVE) mg/dL Urine Occult Blood Small A (NEGATIVE) Urine Nitrite Negative (NEGATIVE) Urine Bilirubin Negative (NEGATIVE) Urine Urobilinogen 0.2 (0.2-1.0) EU/dL Ur Leukocyte Esterase Trace A (NEGATIVE) Urine RBC 5-10 A (0-2) #/HPF Urine WBC 10-20 A (NONE SEEN) #/HPF Ur Squamous Epith Cells Rare (NONE/RARE) #/LPF Urine Crystals None seen (None Seen) #/HPF Urine Bacteria Moderate A (NONE SEEN) #/HPF Urine Casts None seen (NONE SEEN) #/LPF Urine Mucus None seen (NONE SEEN) Ur Culture Indicated? Yes-[facility] [place] ECG Data Attestation: I personally reviewed and interpreted this ECG as follows: (EKG on my interpretation shows sinus rhythm with a rate of 69 and no acute changes.) Discharge Plan Discharge Patient Disposition: Still a Patient
[2025-01-01] MEDS: ONDANSETRON PF 4 MG/2 ML VIAL IV (16:58)
[2025-01-01] MEDS: 0.9 % SODIUM CHLORIDE 1,000 ML 1000 ML IV (16:58)
[2025-01-01 17:13] LABS: Basophils Absolute Auto 0.1 10^3/uL (0.0-0.1); Basophils Percent Auto 0.6 % (0.2-2.0); Eosinophils Absolute Auto 0.3 10^3/uL (0.0-0.7); Eosinophils Percent Auto 2.7 % (0.9-7.0); Hematocrit 41.5 % (36.0-48.0); Hemoglobin 14.2 g/dL (12.0-16.0); Immature Granulocytes Abs Auto 0.02 10^3/uL (0.00-0.03); Immature Granulocytes Pct Auto 0.2 % (0.0-0.5); Lymphocytes Absolute Auto 2.4 10^3/uL (1.2-3.8); Lymphocytes Percent Auto 25.3 % (20.5-60.0); Mean Corpuscular HGB Conc 34.2 g/dL (29.9-35.2); Mean Corpuscular Hemoglobin 28.8 pg (26.7-34.0); Mean Corpuscular Volume 84.2 fL (81.0-99.0); Mean Platelet Volume 11.2 fL (9.5-13.5); Monocytes Absolute Auto 0.6 10^3/uL (0.3-0.8); Monocytes Percent Auto 6.6 % (1.7-12.0); Neutrophils Percent Auto 64.6 % (43.0-75.0); Platelet Count 261 10^3/uL (150-450); Red Blood Count 4.93 10^6/uL (4.20-5.40); White Blood Count 9.3 10^3/uL (4.0-11.0)
[2025-01-01 17:14] LABS: Bilirubin Urine NEGATIVE (NEGATIVE); Blood Urine SMALL (NEGATIVE); Color Urine LT. YELLOW (YELLOW); Glucose Urine UA 500 mg/dL (NEGATIVE); Ketones Urine 40 mg/dL (NEGATIVE); Leukocyte Esterase Urine TRACE (NEGATIVE); Nitrite Urine NEGATIVE (NEGATIVE); Protein Urine NEGATIVE (NEG/TRACE); Urobilinogen Urine 0.2 EU/dL (0.2-1.0)
[2025-01-01 17:15] LABS: Clarity Urine SLIGHTLY CLOUDY (CLEAR)
[2025-01-01 17:21] LABS: Bacteria Urine MODERATE #/HPF (NONE SEEN); Cast Seen? NONE SEEN #/LPF (NONE SEEN); Crystals Seen? None Seen #/HPF (None Seen); Mucus Urine NONE SEEN (NONE SEEN); Squamous Epithelial Cell Urine RARE #/LPF (NONE/RARE)
[2025-01-01 17:22] LABS: Urine Culture Indicated YES-FRMC
[2025-01-01 17:30] LABS: Anion Gap 15.6; BUN Creatinine Ratio 26.1; Calcium 9.5 mg/dL (8.5-10.1); Carbon Dioxide 25.3 mmol/L (21.0-32.0); Chloride 96 mmol/L (98-107); Estimated GFR (African America 54 (>=60 mL/min/1.73m^2); Estimated GFR (Non-African Ame 45 (>=60 mL/min/1.73m^2); Glucose 436 mg/dL (74-106); Potassium 4.9 mmol/L (3.5-5.1); Sodium 132 mmol/L (136-145)
[2025-01-01 17:35] LABS: Troponin I High Sensitivity 234.4 pg/mL (4.0-51.3)
[2025-01-01] MEDS: ACETAMINOPHEN 325 MG TABLET 650 MG PO (17:55)
[2025-01-01] MEDS: CEFTRIAXONE 1,000 MG in 0.9 % SODIUM CHLORIDE 50 ML 100 MG IV (18:07)
[2025-01-01] MEDS: 0.9 % SODIUM CHLORIDE 1,000 ML 125 ML IV (18:45)
[2025-01-01] MEDS: INSULIN REGULAR, HUMAN (100 UNIT/ML) 10 ML MDV 10 UNIT IV (18:48)
[2025-01-01 18:51] LABS: Troponin I High Sensitivity 213.4 pg/mL (4.0-51.3)
[2025-01-01 19:25] LABS: D Dimer 0.38 mg/L FEU (<=0.59)
[2025-01-01 19:27] LABS: Lactate/Lactic Acid 1.2 mmol/L (0.4-2.0)
--- NOTE | 2025-01-01 19:31 | ED.GENADUL1 ---
HPI HPI - General Adult General Chief complaint: Nausea/Vomiting/Diarrhea Stated complaint: Nausea Time Seen by Provider: 01/01/25 16:10 Source: patient Mode of arrival: Wheelchair History of Present Illness HPI narrative: This 69-year-old female was signed out to me at shift change. The patient started Ozempic for weight loss 8 days ago and subsequently developed nausea vomiting and diarrhea. She is not having any chest pain or shortness of breath. She is not having any abdominal pain. She has normal white count hemoglobin. She has a normal D-dimer. BUN and creatinine are mildly elevated but consistent with previous results. Her glucose is elevated. She also has a UTI. She had 2 elevated troponins however the first 1 was 234 and the second 1 was 214. Patient was seen and evaluated. Her only concern at this time is that she is hungry. She had been given soup and something to drink prior to my arrival. I gave her applesauce and peanut butter crackers and diet soda. She then requested more to eat. She was given IV fluids, insulin for the elevated glucose and IV Rocephin for her UTI. I added 324 mg baby aspirin due to the elevated troponins. The case was discussed with the hospitalist and she is excepted for admission to the stepdown unit due to the elevated troponin. Related Data Home Medications ?Medication ?Instructions ?Recorded ?Confirmed gabapentin 900 mg tablet,extended 900 mg PO QPM 05/08/23 01/01/25 release 24 hr hydrocodone 5 mg-acetaminophen 325 1 tab PO Q6H 05/08/23 01/01/25 mg tablet albuterol sulfate 90 mcg/actuation 2 puff inhalation Q4H PRN 06/28/23 01/01/25 aerosol inhaler shortness of breath or wheezing atorvastatin 80 mg tablet 80 mg PO DAILY 06/28/23 01/01/25 bupropion HCl 150 mg tablet,12 hr 150 mg PO DAILY 06/28/23 01/01/25 sustained-release buspirone 15 mg tablet 15 mg PO DAILY 06/28/23 01/01/25 dapagliflozin propanediol 10 mg 10 mg PO DAILY 06/28/23 01/01/25 tablet (Farxiga) fluoxetine 40 mg capsule 40 mg PO DAILY 06/28/23 01/01/25 insulin aspart U-100 100 unit/mL 10 unit subcut .every meal 06/28/23 01/01/25 (3 mL) subcutaneous pen (Novolog FlexPen U-100 Insulin aspart) insulin glargine 100 unit/mL (3 30 unit subcut BEDTIME 06/28/23 01/01/25 mL) subcutaneous pen (Lantus Solostar U-100 Insulin) isosorbide mononitrate 30 mg 30 mg PO DAILY 06/28/23 01/01/25 tablet,extended release 24 hr lisinopril 10 mg tablet 10 mg PO DAILY 06/28/23 01/01/25 metoprolol succinate 50 mg 50 mg PO DAILY 06/28/23 01/01/25 tablet,extended release 24 hr nitroglycerin 0.4 mg sublingual 0.4 mg sublingual Q5M PRN chest 06/28/23 06/28/23 tablet pain pantoprazole 40 mg tablet,delayed 40 mg PO DAILY 06/28/23 01/01/25 release prazosin 2 mg capsule 2 mg PO DAILY 06/28/23 01/01/25 Previous Rx's ?Medication ?Instructions ?Recorded meclizine 25 mg tablet 25 mg PO TID PRN dizziness #30 tabs 07/30/23 ondansetron 4 mg disintegrating 4 mg PO Q6H PRN nausea and 07/30/23 tablet vomiting #20 tabs Allergies Allergy/AdvReac Type Severity Reaction Status Date / Time No Known Drug Allergies Allergy Verified 01/01/25 16:17 Opioid HPI Opioid Management Most Recent Opioid Data: Last Pain Scale 8 01/01/25 17:55 01/01/25 Last MAR Pain Assessment 01/01/25 17:55 PFSH PFSH Social History Smoking status: Never smoker Little interest or pleasure in doing things: several days Feeling down, depressed, or hopeless: several days Exam Constitutional Vital Signs, click to edit/add: Last Vital Signs Temp 98.4 F 01/01/25 16:20 Pulse 69 01/01/25 18:30 Resp 22 H 01/01/25 18:30 BP 165/104 H 01/01/25 18:05 Pulse Ox 90 L 01/01/25 18:30 O2 Del Method Room Air 01/01/25 16:20 Course Vital Signs Vital signs: Vital Signs Temperature 98.4 F 01/01/25 16:20 Pulse Rate 72 01/01/25 16:20 Respiratory Rate 18 01/01/25 16:20 Blood Pressure 125/93 H 01/01/25 16:20 Pulse Oximetry 97 01/01/25 16:20 Oxygen Delivery Method Room Air 01/01/25 16:20 Temperature 98.4 F 01/01/25 16:20 Pulse Rate 69 01/01/25 18:30 Respiratory Rate 22 H 01/01/25 18:30 Blood Pressure 165/104 H 01/01/25 18:05 Pulse Oximetry 90 L 01/01/25 18:30 Oxygen Delivery Method Room Air 01/01/25 16:20 Medical Decision Making Lab Data Labs: Lab Results 01/01/25 01/01/25 01/01/25 Range/Units 16:40 16:55 18:25 WBC 9.3 (4.0-11.0) 10^3/uL RBC 4.93 (4.20-5.40) 10^6/uL Hgb 14.2 (12.0-16.0) g/dL Hct 41.5 (36.0-48.0) % MCV 84.2 (81.0-99.0) fL MCH 28.8 (26.7-34.0) pg MCHC 34.2 (29.9-35.2) g/dL RDW 13.0 (11.0-15.0) % Plt Count 261 (150-450) 10^3/uL MPV 11.2 (9.5-13.5) fL Neut % (Auto) 64.6 (43.0-75.0) % Lymph % (Auto) 25.3 (20.5-60.0) % [place] % (Auto) 6.6 (1.7-12.0) % Eos % (Auto) 2.7 (0.9-7.0) % Baso % (Auto) 0.6 (0.2-2.0) % Neut # (Auto) 6.0 (1.4-6.5) 10^3/uL Lymph # (Auto) 2.4 (1.2-3.8) 10^3/uL [place] # (Auto) 0.6 (0.3-0.8) 10^3/uL Eos # (Auto) 0.3 (0.0-0.7) 10^3/uL Baso # (Auto) 0.1 (0.0-0.1) 10^3/uL Abs Immat Gran (auto) 0.02 (0.00-0.03) 10^3/uL Imm/Tot Granulo (auto) 0.2 (0.0-0.5) % D-Dimer 0.38 (<=0.59) mg/L FEU Sodium 132 L (136-145) mmol/L Potassium 4.9 (3.5-5.1) mmol/L Chloride 96 L (98-107) mmol/L Carbon Dioxide 25.3 (21.0-32.0) mmol/L Anion Gap 15.6 BUN 31.0 H (7.0-18.0) mg/dL Creatinine 1.19 H (0.55-1.02) mg/dL Est GFR ( Amer) 54 L (>=60 mL/min/1.73m^2) Est GFR (Non-Af Amer) 45 L (>=60 mL/min/1.73m^2) BUN/Creatinine Ratio 26.1 Glucose 436 H (74-106) mg/dL Lactate 1.2 (0.4-2.0) mmol/L Calcium 9.5 (8.5-10.1) mg/dL Troponin I High Sens 234.4 H* 213.4 H* (4.0-51.3) pg/mL Urine Color Lt. yellow (YELLOW) Urine Clarity Slightly cloudy A (CLEAR) Urine pH 6.0 (5.0-9.0) Ur Specific [place] 1.010 (1.005-1.025) Urine Protein Negative (NEG/TRACE) mg/dL Urine Glucose (UA) 500 A (NEGATIVE) mg/dL Urine Ketones 40 A (NEGATIVE) mg/dL Urine Occult Blood Small A (NEGATIVE) Urine Nitrite Negative (NEGATIVE) Urine Bilirubin Negative (NEGATIVE) Urine Urobilinogen 0.2 (0.2-1.0) EU/dL Ur Leukocyte Esterase Trace A (NEGATIVE) Urine RBC 5-10 A (0-2) #/HPF Urine WBC 10-20 A (NONE SEEN) #/HPF Ur Squamous Epith Cells Rare (NONE/RARE) #/LPF Urine Crystals None seen (None Seen) #/HPF Urine Bacteria Moderate A (NONE SEEN) #/HPF Urine Casts None seen (NONE SEEN) #/LPF Urine Mucus None seen (NONE SEEN) Ur Culture Indicated? Yes-[facility] [place] Discharge Plan Discharge Chief Complaint: Nausea/Vomiting/Diarrhea Clinical Impression: Nausea, vomiting, and diarrhea, Elevated troponin, Acute UTI, Hyperglycemia Patient Disposition: Admitted as Observation Time of Disposition Decision: 19:41 Condition: Good
[2025-01-01] MEDS: ZINC OXIDE 30% CREAM 113.4 GM TUBE 1 APPLIC TOPICAL (19:53)
[2025-01-01] MEDS: ASPIRIN 81 MG TAB.CHEW 324 MG PO (19:53)
[2025-01-01 20:04] LABS: Glucometer 238 mg/dL (74-106)
[2025-01-01] MEDS: INSULIN ASPART 300 UNIT/3 ML PEN SUBQ (21:37)
[2025-01-01] MEDS: INSULIN GLARGINE 300 UNIT/3 ML INSULN.PEN 30 UNIT SQ (21:40)
[2025-01-01 21:47] LABS: Glucometer 264 mg/dL (74-106)
[2025-01-01] MEDS: TERAZOSIN HCL 1 MG CAPSULE PO (22:29)
[2025-01-01] MEDS: GABAPENTIN 300 MG CAPSULE 900 MG PO (22:29)
[2025-01-01] MEDS: TRAZODONE HCL 50 MG TABLET PO (22:29)
[2025-01-02] VITALS (14 sets, daily range): BP systolic 104–172; BP diastolic 66–118; PULSE 60–70; TEMP 36.6–36.7; O2SAT 95–99
[2025-01-02] MEDS: 0.9 % SODIUM CHLORIDE 1,000 ML 125 ML IV (02:13)
[2025-01-02 06:04] LABS: Basophils Percent Auto 0.6 % (0.2-2.0); Eosinophils Absolute Auto 0.3 10^3/uL (0.0-0.7); Eosinophils Percent Auto 4.4 % (0.9-7.0); Hemoglobin 12.4 g/dL (12.0-16.0); Immature Granulocytes Abs Auto 0.02 10^3/uL (0.00-0.03); Immature Granulocytes Pct Auto 0.3 % (0.0-0.5); Lymphocytes Absolute Auto 2.4 10^3/uL (1.2-3.8); Lymphocytes Percent Auto 34.5 % (20.5-60.0); Mean Corpuscular HGB Conc 32.6 g/dL (29.9-35.2); Mean Corpuscular Hemoglobin 28.1 pg (26.7-34.0); Mean Platelet Volume 10.9 fL (9.5-13.5); Monocytes Absolute Auto 0.5 10^3/uL (0.3-0.8); Monocytes Percent Auto 7.7 % (1.7-12.0); Neutrophils Absolute Auto 3.6 10^3/uL (1.4-6.5); Neutrophils Percent Auto 52.5 % (43.0-75.0); Platelet Count 207 10^3/uL (150-450); Red Blood Count 4.42 10^6/uL (4.20-5.40); Red Cell Distribution Width 13.1 % (11.0-15.0); White Blood Count 6.8 10^3/uL (4.0-11.0)
[2025-01-02 06:22] LABS: Alanine Aminotransferase 7 U/L (14-59); Albumin Globulin Ratio 0.9; Albumin Level 2.8 g/dL (3.4-5.0); Alkaline Phosphatase 88 U/L (46-116); Anion Gap 14.4; Aspartate Amino Transferase 13 U/L (15-37); BUN Creatinine Ratio 27.4; Bilirubin Total 0.3 mg/dL (0.2-1.0); Calcium 8.5 mg/dL (8.5-10.1); Carbon Dioxide 25.1 mmol/L (21.0-32.0); Chloride 105 mmol/L (98-107); Estimated GFR (African America >60 (>=60 mL/min/1.73m^2); Estimated GFR (Non-African Ame 58 (>=60 mL/min/1.73m^2); Globulin 3.2 g/dL; Glucose 219 mg/dL (74-106); Magnesium 2.2 mg/dL (1.8-2.4); Phosphorus 3.5 mg/dL (2.6-4.7); Potassium 4.5 mmol/L (3.5-5.1); Sodium 140 mmol/L (136-145)
[2025-01-02 06:37] LABS: Troponin I High Sensitivity 212.8 pg/mL (4.0-51.3)
--- NOTE | 2025-01-02 07:01 | CA_ITS ---
Patient Name: DUYEN ANAYA MR#: [id number] : 1955 Exam Date: 01/02/2025 Ordering Doctor: DR Roby Sheldon . ECHOCARDIOGRAM REPORT PROCEDURE: CA ECHO DOPPLER COMPLETE INDICATIONS: elevated trop COMPARISON: None. DESCRIPTION: COMPLETE ECHOCARDIOGRAM Real-time transthoracic echocardiography with 2D, M-mode, spectral and color flow Doppler performed. QUALITY: Technical quality was good. LEFT VENTRICLE: Normal chamber size. Thickened septal wall. Moderate to severe concentric left ventricular hypertrophy. There is systolic anterior motion of the anterior mitral valve leaflet with increased doppler velocities through the LVOT at rest, with a peak gradient of 58 mmHg. Patient was unable to perform Valsalva maneuver. LV EF: Calculated left ventricular ejection fraction is Hyperdynamic at 75%. DIASTOLIC: diastolic function is indeterminate. ATRIAL SEPTUM: Technically difficult, not well visualized. LEFT ATRIUM: Normal chamber size. RIGHT ATRIUM: Normal chamber size. RIGHT VENTRICLE: Normal chamber size. Normal right ventricular systolic function. TRICUSPID VALVE: Normal mobility and thickness. No stenosis with trivial regurgitation. No evidence of pulmonary hypertension. MITRAL VALVE: Normal mobility and thickness. No evidence of mitral valve stenosis. There is no mitral annular calcification. Mild mitral regurgitation. AORTIC VALVE: Normal trileaflet appearance. Thickened aortic valve. Normal leaflet mobility. There does not appear to be aortic stenosis on 2D imaging. No aortic regurgitation. AORTIC ROOT: Normal diameter and appearance measuring 3.1 cm. Ascending aorta is normal in size, measuring 3.6 cm. PULMONIC VALVE: Normal thickness and mobility. No stenosis. Trivial regurgitation. PERICARDIUM: No evidence of pericardial effusion. IVC: Collapses with inspirations. Measuring 1.8 cm. PLEURA: CONCLUSION: 1. Moderate-severe concentric left ventricular hypertrophy with increased thickness of the basal interventricular septum at 1.8 cm. Hyperdynamic LV systolic function [LVEF 75%] with increased LVOT velocities and systolic anterior motion of the anterior mitral valve leaflet with a peak resting LVOT gradient of 58 mmHg. 2. Normal left ventricular size and systolic function. 3. Mild mitral regurgitation. 4. 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 5. Further imaging such as transesophageal echocardiogram and/or cardiac MRI is recommended. Adult Echocardiography Procedure Report Left Ventricle LVEDD (3.7 - 5.6 cm): 3.94 cm LVESD (2.2 - 4.0 cm): 2.83 cm LVIVS thickness (0.6 - 1.2 cm): 1.84 cm LVPW thickness (0.5 - 1.0 cm): 1.49 cm e': 0.06 m/s E - e': 14.58 LVOT Diameter 1.98 cm Left Ventricular Ejection Fraction: 75 % Left Atrium LA Volume Index (2D A2C): 24.48 ml/m2 Left Atrium Systolic Dimension: 3.99 cm Mitral Valve MV E to A Ratio: 1 Mitral Valve A-Wave Peak Velocity: 0.86 m/s Mitral Valve E-Wave Peak Velocity: 0.86 m/s Right Ventricle RV Internal Diastolic Dimension: 3.02 cm Aorta AO Root Diam: 3.09 cm Aortic Valve Peak Velocity(Antegrade Flow): 3.82 m/s Peak Gradient(Antegrade Flow): 58.47 mm[Hg] Mean Velocity(Antegrade Flow): 2.49 m/s Mean Gradient(Antegrade Flow): 30.03 mm[Hg] Velocity Time Integral: 66.27 cm Tricuspid Valve Pulmonic Valve Peak Velocity: 0.99 m/s Peak Gradient: 3.90 mm[Hg], 3.90 mm[Hg] Right Atrium Right Atrium Systolic Pressure: 42.05 ml, 42.05 ml Dictated by: Mehdi Parra M.D. on 01/02/2025 at 18:16 Approved by: Mehdi Parra M.D. on 01/02/2025 at 18:26
--- NOTE | 2025-01-02 07:44 | CM.NOTE ---
Rounds made with Dr. Sheldon, pt continues with abdominal pain this AM with exam. Dr. Sheldon will get CT of abdomen and pelvis this AM.
[2025-01-02 07:46] LABS: Glucometer 253 mg/dL (74-106)
--- NOTE | 2025-01-02 08:42 | P.HP_ITS ---
HPI H&P: HPI History of Present Illness Chief complaint: N/U/D UTI Elevated Trop Narrative: Patient presented to emergency room with nausea vomiting and lower abdominal pain., Diagnosed with acute UTI dehydration hyperglycemia patient was admitted for workup and treatment of same, also in ER found to have acute elevation in high-sensitivity troponin with negative EKG I saw patient on the medical surgical floor, resting comfortably bed, her only complaint really was mild nausea but left lower quadrant abdominal pain Opioid HPI Opioid Management Most Recent Pain and Opioid Data: Last Pain Scale 8 01/01/25 17:55 01/01/25 Last Pain Assessment 01/02/25 07:49 Last MAR Pain Assessment 01/01/25 17:55 Last ORT Total Score 1 01/01/25 20:26 01/01/25 Last ORT Risk Category Low Risk 01/01/25 20:26 01/01/25 Review of Systems ROS Status of ROS 10 or more systems reviewed and unremark able except as noted in history and below PFSH PFSH Social History Smoking status: Never smoker Highest level of school completed/degree received: high school graduate Little interest or pleasure in doing things: not at all Feeling down, depressed, or hopeless: not at all Meds Home Medications and Allergies Home Medications ?Medication ?Instructions ?Recorded ?Confirmed ?Type gabapentin 900 mg tablet,extended 900 mg PO QPM 05/08/23 01/01/25 History release 24 hr hydrocodone 5 mg-acetaminophen 325 1 tab PO Q6H 05/08/23 01/01/25 History mg tablet albuterol sulfate 90 mcg/actuation 2 puff inhalation Q4H PRN 06/28/23 01/01/25 History aerosol inhaler shortness of breath or wheezing atorvastatin 80 mg tablet 80 mg PO DAILY 06/28/23 01/01/25 History bupropion HCl 150 mg tablet,12 hr 150 mg PO DAILY 06/28/23 01/01/25 History sustained-release buspirone 15 mg tablet 15 mg PO BID 06/28/23 01/02/25 History dapagliflozin propanediol 10 mg 10 mg PO DAILY 06/28/23 01/01/25 History tablet (Farxiga) fluoxetine 40 mg capsule 40 mg PO DAILY 06/28/23 01/01/25 History insulin glargine 100 unit/mL (3 30 unit subcut BEDTIME 06/28/23 01/01/25 History mL) subcutaneous pen (Lantus Solostar U-100 Insulin) isosorbide mononitrate 30 mg 30 mg PO DAILY 06/28/23 01/01/25 History tablet,extended release 24 hr lisinopril 10 mg tablet 10 mg PO DAILY 06/28/23 01/01/25 History metoprolol succinate 50 mg 50 mg PO DAILY 06/28/23 01/01/25 History tablet,extended release 24 hr nitroglycerin 0.4 mg sublingual 0.4 mg sublingual Q5M PRN chest 06/28/23 01/01/25 History tablet pain pantoprazole 40 mg tablet,delayed 40 mg PO DAILY 06/28/23 01/01/25 History release prazosin 2 mg capsule 2 mg PO .q hs 06/28/23 01/01/25 History meclizine 25 mg tablet 25 mg PO TID PRN dizziness #30 tabs 07/30/23 01/01/25 Rx ondansetron 4 mg disintegrating 4 mg PO Q6H PRN nausea and 07/30/23 01/01/25 Rx tablet vomiting #20 tabs trazodone 50 mg tablet 50 mg PO .q hs 01/01/25 01/01/25 History aspirin 81 mg capsule 81 mg PO DAILY #30 caps 01/02/25 Rx ciprofloxacin HCl 500 mg tablet 500 mg PO Q12H #20 tabs 01/02/25 Rx (Cipro) insulin lispro 100 unit/mL 10 unit subcut TIDWM 01/02/25 01/02/25 History subcutaneous pen isosorbide mononitrate 30 mg 60 mg (2 x 30 mg) PO DAILY #60 tabs 01/02/25 Rx tablet,extended release 24 hr metronidazole 500 mg tablet 500 mg PO Q8H #30 tabs 01/02/25 Rx semaglutide 0.25 mg or 0.5 mg (2 mg subcut 01/02/25 History mg/3 mL) subcutaneous pen injector (Ozempic) Allergies Allergy/AdvReac Type Severity Reaction Status Date / Time No Known Drug Allergies Allergy Verified 01/01/25 16:17 Exam Constitutional Vital Signs, click to edit/add: Last Vital Signs Temp 98.0 F 01/02/25 07:41 Pulse 62 01/02/25 07:50 Resp 16 01/02/25 07:41 BP 104/73 01/02/25 07:41 Pulse Ox 99 01/02/25 07:41 O2 Del Method Room Air 01/02/25 07:41 Documenting provider has reviewed patient's vital signs: yes Common normals: no apparent distress Respiratory Common normals: normal respiratory effort, no retractions and clear to auscultation bilaterally Cardio Common normals: regular rate and no murmurs GI Common normals: Normal to inspection, nondistended, normoactive bowel sounds present and soft to palpation; tender Palpation: tender (Left lower quadrant tenderness with positive rebound tenderness) Extremity Common normals: normal to inspection and full ROM Results Labs Labs: Short CBC 01/01/25 01/02/25 Range/Units 16:40 05:44 WBC 9.3 6.8 (4.0-11.0) 10^3/uL Hgb 14.2 12.4 (12.0-16.0) g/dL Hct 41.5 38.0 (36.0-48.0) % Plt Count 261 207 (150-450) 10^3/uL BMP 01/01/25 01/02/25 16:40 05:44 Sodium 132 L 140 Potassium 4.9 4.5 Chloride 96 L 105 Carbon Dioxide 25.3 25.1 BUN 31.0 H 26.0 H Creatinine 1.19 H 0.95 Glucose 436 H 219 H Calcium 9.5 8.5 Liver Function 01/02/25 Range/Units 05:44 Total Bilirubin 0.3 (0.2-1.0) mg/dL AST 13 L (15-37) U/L ALT 7 L (14-59) U/L Alkaline Phosphatase 88 (46-116) U/L Albumin 2.8 L (3.4-5.0) g/dL Urine 01/01/25 Range/Units 16:55 Urine Color Lt. yellow (YELLOW) Urine Clarity Slightly cloudy A (CLEAR) Urine pH 6.0 (5.0-9.0) Ur Specific [place] 1.010 (1.005-1.025) Urine Protein Negative (NEG/TRACE) mg/dL Urine Glucose (UA) 500 A (NEGATIVE) mg/dL Assessment and Plan Assessment and Plan (1) Acute UTI: (2) Elevated troponin: (3) Nausea, vomiting, and diarrhea: (4) Diverticulitis: Plan Admission findings: Severe hyperglycemia, respiratory distress, uncontrolled hypertension, white blood cell count normal, positive urinalysis, negative lactate, exam consistent with diverticulitis, labs consistent with acute UTI Left lower quadrant tenderness-check CT scan abdomen and pelvis, possible diver ticulitis, with positive rebound tenderness consistent with acute abdomen, if diverticulitis is not ruptured and patient able to eat and ambulate possible discharge to home later today with Cipro and Flagyl Acute UTI on lab results-culture pending, changing antibiotics as outlined above, received 1 dose of Rocephin Uncontrolled diabetes mellitus-patient to work on diet as an outpatient likely elevated from the infections as outlined above Elevated high-sensitivity troponin with normal EKG consistent with acute NSTEMI type II secondary to the infection as outlined above-lab results are improving, check echocardiogram if that is normal ejection fraction, patient can be treated for the infection as outlined above, stress test as an outpatient Admission status: Patient placed in observation status, checking CT scan and echocardiogram if both of those are normal or minimally changed, patient is stable later today possible discharge, medically necessary treatment would only span 1 midnight, will maintain observation status. If cardiogram or CT scan are consistent with acute and significant findings, medically necessary treatment will then span 2 midnights and she will be changed to inpatient status
--- NOTE | 2025-01-02 08:45 | P.DS_ITS ---
DS: Providers Provider Date of admission: 01/01/25 20:08 Primary care physician: Yessica Sheffield DS: Summary Time Spent with Patient Time attestation: Total time spent providing and/or coordinating discharge services: Exam Constitutional Vital Signs, click to edit/add: Last Vital Signs Temp 98.0 F 01/02/25 07:41 Pulse 62 01/02/25 07:50 Resp 16 01/02/25 07:41 BP 104/73 01/02/25 07:41 Pulse Ox 99 01/02/25 07:41 O2 Del Method Room Air 01/02/25 07:41 DS: Data Data Completed and Pending Labs on day of discharge: Labs from last 24 hours 01/02/25 01/02/25 01/01/25 07:46 05:44 21:36 WBC 6.8 RBC 4.42 Hgb 12.4 Hct 38.0 MCV 86.0 MCH 28.1 MCHC 32.6 RDW 13.1 Plt Count 207 MPV 10.9 Neut % (Auto) 52.5 Lymph % (Auto) 34.5 [place] % (Auto) 7.7 Eos % (Auto) 4.4 Baso % (Auto) 0.6 Neut # (Auto) 3.6 Lymph # (Auto) 2.4 [place] # (Auto) 0.5 Eos # (Auto) 0.3 Baso # (Auto) 0.0 Abs Immat Gran (auto) 0.02 Imm/Tot Granulo (auto) 0.3 D-Dimer Sodium 140 Potassium 4.5 Chloride 105 Carbon Dioxide 25.1 Anion Gap 14.4 BUN 26.0 H Creatinine 0.95 Est GFR ( Amer) >60 Est GFR (Non-Af Amer) 58 L BUN/Creatinine Ratio 27.4 Glucose 219 H Lactate Calcium 8.5 Phosphorus 3.5 Magnesium 2.2 Total Bilirubin 0.3 AST 13 L ALT 7 L Alkaline Phosphatase 88 Troponin I High Sens 212.8 H* NT-Pro-B Natriuret Pep Total Protein 6.0 L Albumin 2.8 L Globulin 3.2 Albumin/Globulin Ratio 0.9 Urine Color Urine Clarity Urine pH Ur Specific [place] Urine Protein Urine Glucose (UA) Urine Ketones Urine Occult Blood Urine Nitrite Urine Bilirubin Urine Urobilinogen Ur Leukocyte Esterase Urine RBC Urine WBC Ur Squamous Epith Cells Urine Crystals Urine Bacteria Urine Casts Urine Mucus Ur Culture Indicated? POC Glucose 253 H 264 H 01/01/25 01/01/25 01/01/25 19:57 18:25 16:55 WBC RBC Hgb Hct MCV MCH MCHC RDW Plt Count MPV Neut % (Auto) Lymph % (Auto) [place] % (Auto) Eos % (Auto) Baso % (Auto) Neut # (Auto) Lymph # (Auto) [place] # (Auto) Eos # (Auto) Baso # (Auto) Abs Immat Gran (auto) Imm/Tot Granulo (auto) D-Dimer Sodium Potassium Chloride Carbon Dioxide Anion Gap BUN Creatinine Est GFR ( Amer) Est GFR (Non-Af Amer) BUN/Creatinine Ratio Glucose Lactate Calcium Phosphorus Magnesium Total Bilirubin AST ALT Alkaline Phosphatase Troponin I High Sens 213.4 H* NT-Pro-B Natriuret Pep Total Protein Albumin Globulin Albumin/Globulin Ratio Urine Color Lt. yellow Urine Clarity Slightly cloudy A Urine pH 6.0 Ur Specific [place] 1.010 Urine Protein Negative Urine Glucose (UA) 500 A Urine Ketones 40 A Urine Occult Blood Small A Urine Nitrite Negative Urine Bilirubin Negative Urine Urobilinogen 0.2 Ur Leukocyte Esterase Trace A Urine RBC 5-10 A Urine WBC 10-20 A Ur Squamous Epith Cells Rare Urine Crystals None seen Urine Bacteria Moderate A Urine Casts None seen Urine Mucus None seen Ur Culture Indicated? Yes-[facility] [place] POC Glucose 238 H 01/01/25 16:40 WBC 9.3 RBC 4.93 Hgb 14.2 Hct 41.5 MCV 84.2 MCH 28.8 MCHC 34.2 RDW 13.0 Plt Count 261 MPV 11.2 Neut % (Auto) 64.6 Lymph % (Auto) 25.3 [place] % (Auto) 6.6 Eos % (Auto) 2.7 Baso % (Auto) 0.6 Neut # (Auto) 6.0 Lymph # (Auto) 2.4 [place] # (Auto) 0.6 Eos # (Auto) 0.3 Baso # (Auto) 0.1 Abs Immat Gran (auto) 0.02 Imm/Tot Granulo (auto) 0.2 D-Dimer 0.38 Sodium 132 L Potassium 4.9 Chloride 96 L Carbon Dioxide 25.3 Anion Gap 15.6 BUN 31.0 H Creatinine 1.19 H Est GFR ( Amer) 54 L Est GFR (Non-Af Amer) 45 L BUN/Creatinine Ratio 26.1 Glucose 436 H Lactate 1.2 Calcium 9.5 Phosphorus Magnesium Total Bilirubin AST ALT Alkaline Phosphatase Troponin I High Sens 234.4 H* NT-Pro-B Natriuret Pep 653.0 Total Protein Albumin Globulin Albumin/Globulin Ratio Urine Color Urine Clarity Urine pH Ur Specific [place] Urine Protein Urine Glucose (UA) Urine Ketones Urine Occult Blood Urine Nitrite Urine Bilirubin Urine Urobilinogen Ur Leukocyte Esterase Urine RBC Urine WBC Ur Squamous Epith Cells Urine Crystals Urine Bacteria Urine Casts Urine Mucus Ur Culture Indicated? POC Glucose Preliminary micro results at discharge 01/01/25 16:55 Urine Culture - Preliminary Urine Catheterized Pending - Specimen sent to [facility] Discharge Plan Discharge Disposition: Home, Self-Care Condition: Good Discharge Medications: New ciprofloxacin HCl [Cipro] 500 mg tablet 500 mg PO Q12H Qty: 20 0RF metronidazole 500 mg tablet 500 mg PO Q8H Qty: 30 0RF aspirin 81 mg capsule 81 mg PO DAILY Qty: 30 11RF isosorbide mononitrate 30 mg Tablet Extended Release 24 Hr 60 mg PO DAILY Qty: 60 0RF Discontinued isosorbide mononitrate 30 mg tablet extended release 24 hr 30 mg PO DAILY No Action hydrocodone-acetaminophen 5-325 mg tablet 1 tab PO Q6H gabapentin 900 mg tablet extended release 24 hr 900 mg PO QPM albuterol sulfate 90 mcg/actuation HFA aerosol inhaler 2 puff INHALATION Q4H PRN (Reason: shortness of breath or wheezing) atorvastatin 80 mg tablet 80 mg PO DAILY bupropion HCl 150 mg tablet sustained-release 12 hr 150 mg PO DAILY buspirone 15 mg tablet 15 mg PO BID dapagliflozin propanediol [Farxiga] 10 mg tablet 10 mg PO DAILY fluoxetine 40 mg capsule 40 mg PO DAILY insulin glargine [Lantus Solostar U-100 Insulin] 100 unit/mL (3 mL) insulin pen 30 unit SUBCUT BEDTIME lisinopril 10 mg tablet 10 mg PO DAILY metoprolol succinate 50 mg tablet extended release 24 hr 50 mg PO DAILY nitroglycerin 0.4 mg tablet, sublingual 0.4 mg sublingual Q5M PRN (Reason: chest pain) pantoprazole 40 mg tablet,delayed release (DR/EC) 40 mg PO DAILY prazosin 2 mg capsule 2 mg PO .q hs ondansetron 4 mg tablet,disintegrating 4 mg PO Q6H PRN (Reason: nausea and vomiting) Qty: 20 0RF meclizine 25 mg tablet 25 mg PO TID PRN (Reason: dizziness) Qty: 30 0RF trazodone 50 mg tablet 50 mg PO .q hs insulin lispro 100 unit/mL insulin pen 10 unit SUBCUT TIDWM Ozempic 0.25 mg or 0.5 mg (2 mg/3 mL) pen injector SUBCUT Print Language: Afghan Forms: Portal Instructions
[2025-01-02] MEDS: ISOSORBIDE MONONITRATE 30 MG TAB.ER.24H 60 MG PO (09:46)
[2025-01-02] MEDS: CANAGLIFLOZIN 100 MG TABLET 300 MG PO (09:46)
[2025-01-02] MEDS: METRONIDAZOLE 250 MG TABLET 500 MG PO (09:47)
[2025-01-02] MEDS: LISINOPRIL 20 MG TABLET PO (09:47)
[2025-01-02] MEDS: GABAPENTIN 300 MG CAPSULE PO (09:48)
[2025-01-02] MEDS: ATORVASTATIN CALCIUM 40 MG TABLET 80 MG PO (09:48)
[2025-01-02] MEDS: BUPROPION HCL 150 MG XL TABLET 24H PO (09:48)
[2025-01-02] MEDS: METOPROLOL SUCCINATE 50 MG TAB.ER.24H PO (09:49)
[2025-01-02] MEDS: PANTOPRAZOLE SODIUM 40 MG TABLET.DR PO (09:49)
[2025-01-02] MEDS: FLUOXETINE HCL 20 MG CAPSULE 40 MG PO (09:49)
[2025-01-02] MEDS: CIPROFLOXACIN HCL 500 MG TABLET PO (09:50)
[2025-01-02] MEDS: INSULIN ASPART 300 UNIT/3 ML PEN SUBQ (11:07)
[2025-01-02 11:08] LABS: Glucometer 278 mg/dL (74-106)
--- NOTE | 2025-01-02 14:09 | SWNOTE1 ---
SW spoke with nurse and pt is hesitant on being discharged. SW to speak with pt. SW and nurse went in room to speak with patient. Pt was sleeping and woke up to give SW a hug. SW explained that SW was here to discuss dc planning, SW asked pt if she knew where she was at. Pt voiced [facility]. Pt did voice that she was feeling weak and that her stomach did hurt some. SW asked pt if she was at home with anyone, she stated her . SW asked pt if she had any home health services coming in? Pt stated not at this time and she did 1-2 years ago. SW then offered to have HH set up, such as a nurse and therapy. SW explained that nurse maybe 1x a week and therapy possibly a few times of the week. Pt earlier voiced she felt weaker. Pt then stated she wants to think about HH for a few days. SW advised that once she leaves here, SW can't set up. SW advised that she can ask her PCP to set it up at her follow up next week if she decides she wants it. Pt voiced understanding. Pt stated she is just tired. SW and nurse advised pt that she will get more rest at home versus at hospital. SW again advised pt that she is medically stable and her tests all came back fine. SW asked how she was going to get home, she stated her . Nurse provided pt with her cell phone and pt called her . He will pick her up. No further needs at this time. Pt refused home health services at this time.
--- NOTE | 2025-01-03 13:07 | CM.DCFOLLOWU ---
1st attempt 01/03/25, no answer
--- NOTE | 2025-01-04 14:21 | CM.DCFOLLOWU ---
Person spoke with: patient How are you feeling? still feeling nauseous, but has been eating How is your pain?none Did you understand your discharge instructions?yes Do you have any questions about your discharge instructions?no Were you given any prescriptions at discharge?yes Were you able to get your prescriptions filled?yes Do you understand how to take your medications as ordered?yes Do you have any questions about your follow up appointment and do you plan to keep your follow up appointment? no questions, follow up 01/09 with PCP Is there anything else that you would like to discuss?no Questions/Comments/Concerns/Other:none
--- NOTE | 2025-01-04 14:57 | CM.NOTE ---
Urine culture [place] txt sent to Dr. Lion.
--- NOTE | 2025-01-07 14:58 | PC.NURSE ---
Reviewed pt.'s Urine culture results, pt has NKDA, reviewed pt.'s discharge ATVBs, gave to Dr. Farrar to review C&S new orders given (Augmentin 875/125 po BID X 10 day #qty 20), copywriter phone in to [facility] in [place] (noted in pt.'s chart as perferred pharmacy), left a voicemail ATVB prescription, copywriter called patient at 1148 and informed her script was called into preferred pharmacy.
== END 2025-01-02 14:25 | disposition home or self-care (01) ==
LOC: ER 19:42 → MS 20:15
PROVIDERS: Emergency Medicine; Family Medicine; Registered Nurse; Admitting Provider Internal Medicine; Emergency Provider Emergency Medicine; Visit Provider Internal Medicine
DX: N39.0 Urinary tract infection, site not specified (principal); R11.2 Nausea with vomiting, unspecified; R19.7 Diarrhea, unspecified; K57.92 Diverticulitis of intestine, part unspecified, without perforation or abscess without bleeding; E86.0 Dehydration; R10.32 Left lower quadrant pain; Z79.85 Long-term (current) use of injectable non-insulin antidiabetic drugs; R06.03 Acute respiratory distress; E11.65 Type 2 diabetes mellitus with hyperglycemia; Z79.4 Long term (current) use of insulin; I21.A1 Myocardial infarction type 2; B96.20 Unspecified Escherichia coli [E. coli] as the cause of diseases classified elsewhere
CPT/HCPCS: 36415; 74177; 80048; 80053; 81001; 82948; 83605; 83735; 83880; 84100; 84484; 85025; 85378; 87040; 87086; 87088; 87186; 93005; 93306; 93356; 94761; 96361; 96365; 96375; 99285; G0378; J0696; J1817; J2405; Q9966; Q9967

== ENCOUNTER 2025-01-23 07:43 | Outpatient (OUT) | payer MEDICARE, SELFPAY ==
--- NOTE | 2025-01-23 | PCN_ITS ---
CARDIAC STRESS TEST Requesting Physician: Roby Sheldon M.D. Procedure Date: 01/23/2025 REASON FOR TEST: Chest pain, shortness of breath. At baseline, patient was noted to have a resting heart rate of 51 beats per minute, with a blood pressure of 134/78 mm/Hg. With infusion of < > , heart rate increased to 66 beats per minute, with a blood pressure of 134/70 mm/Hg. Baseline EKG showed sinus rhythm with poor R-wave progression. Otherwise, the intervals were normal. With infusion, no ST segment changes suggestive of ischemia were noted. No AV block was seen. No arrhythmias were noted. IMPRESSION: 1. No EKG evidence of ischemia seen with stress test. 2. Imaging portion of the stress test will be dictated separately by Radiology. NADINE
--- NOTE | 2025-01-23 08:15 | NM_ITS ---
Patient Name: DUYEN ANAYA MR#: [id number] : 1955 Exam Date: 01/23/2025 Ordering Doctor: DR ISACC VALLES . RADIOLOGY REPORT PROCEDURE: NM GUI PERF SPECT REST STR COMPARISON: None. INDICATIONS: CHEST PAIN, SHORTNESS OF BREATH, NSTEMI TECHNIQUE: Exam Description: Rest/Stress one day protocol gated SPECT Rest Imagin.0 mCi Tc-99m Cardiolite IV on 01/23/2025 Stress Imaging 29.6 mCi Tc-99m Cardiolite IV on 01/23/2025 Exercise Protocol: 0.4 mg Lexiscan given IV Heart Rate (bpm): Rest: 51 Max: 66 PMHR: 44 Blood Pressure: Rest: 134/78 Max: 134/78 Symptoms: Rest and peak stress ECG findings were pending, and the exercise portion of the study was pending per attending physician [facility]. For more details, please see separate cardiac stress test report. FINDINGS: QUALITY OF STUDY: Good PERFUSION DEFECT: LOCATION: N/A SIZE: N/A SEVERITY: N/A TYPE: N/A WALL MOTION: Normal wall motion LV SIZE: 72 mL. TID / TCD: 1.1 LVEF: Calculated EF 70%. SUMMARY: Myocardial perfusion imaging study is normal CONCLUSION: 1. Myocardial perfusion is normal with soft tissue attenuation 2. Normal global left ventricular systolic function 3. No evidence of transient ischemic dilatation Dictated by: Graciela Matthew M.D. on 01/24/2025 at 15:56 Approved by: Graciela Matthew M.D. on 01/24/2025 at 15:58
[2025-01-23] MEDS: REGADENOSON 0.4 MG/5 ML SYRINGE IV (11:06)
--- NOTE | 2025-01-23 11:06 | PC.NURSE ---
Nursing Note Cardiac Stress Test Reviewed: Medication, allergies and patient history reviewed. Stress Test: [ x] Patient tolerated stress test well. [ ] Patient unable to tolerate walking on treadmill. Switched to Lexiscan stress test. [ x] No chest pain noted per patient [ ] Chest pain that resolved prior to leaving stress lab. [ x] No dyspnea noted. [ ] Dyspnea that resolved prior to leaving stress lab. [x ] Patient left stress lab asymptomatic and hemodynamically stable. [ ] Patient taken to the Emergency Room due to non-resolving symptoms following stress test. [ ] Patient achieved target heart rate. [ ] Patient unable to achieve target heart rate. [ ] Aminophylline administered as reversal agent to Lexiscan (Regadenoson). [ ] Nitro administered. Nursing Comments:Lexiscan was done pt tolerated well. No symptoms reported. Pt taken down to cafeteria for breakfast prior to second set of images in her own WC by staff. Pt's initial IV was not able to be used so this was removed and 2 attempts by [employer] tech and one by this RN used to get IV established. Pt tolerated well.
== END 2025-01-23 07:44 | disposition home or self-care (01) ==
LOC: NM 07:44
PROVIDERS: Visit Provider Family Medicine
DX: I21.4 Non-ST elevation (NSTEMI) myocardial infarction (principal)
CPT/HCPCS: 78452; 93017; A9500; J2785

== ENCOUNTER 2025-03-14 01:17 | Emergency (ER) | payer MEDICARE, SELFPAY ==
--- OUTSIDE RECORDS SUMMARY | 2024-11-13 06:15 | XMS_ITS ---
Author Organization [facility] vices Address [address] [place], [place] [id number] Care Team Providers Care Solution Design Engineer Name Role Phone Alexa Martinez Primary Care Provider REASON FOR VISIT Hematuria Social History Sex Assigned At : Social History Observation Description Sex Assigned At Unknown Encounters Encounter Location Date Provider Diagnosis Main [address] [place], [place] [id number] 11/13/2024 Alexa Martinez Plan Of Treatment Next Appt Details Provider Name:Bon Rodriguez , 03/23/2025 10:00:00 AM, [address] [place], [place], [id number], Progress Notes * Morelia GODOY ADOB: (69 yo F)Acc No.[id number]:11/13/2024 Medical Note Patient: Issac Morelia [place]AT[place] Provider: Dg Martinez :1955 A ge:69 Y S ex:Female Date:11/13/2024 Address:[address] [place] [address], [address], [place], [id number] Subjective: * Chief Complaints: * 1 . Hematuria. * Medical History: Objective: * Vitals: Assessment: Plan: * Treatment: * Billing Information: * Visit Code: * Procedure Codes: * Electronic signature of CINDY Calderon sa on 03/14/2025 at 01:24 AM EDT Sign off status: Pending * Provider: Dg Martinez Date: 0 11/13/2024 Generated for Elizabeth salas/Brent/Kaylin on: 0 03/14/2025 01:24 AM EDT
--- OUTSIDE RECORDS SUMMARY | 2024-11-15 07:00 | XMS_ITS ---
Author Organization [facility] vices Address [address] [place], [place] [id number] Care Team Providers Care Chief Operator Lock Tender Name Role Phone Alexa Martinez Primary Care Provider REASON FOR VISIT hematuria Social History Sex Assigned At : Social History Observation Description Sex Assigned At Unknown Encounters Encounter Location Date Provider Diagnosis Main [address] [place], [place] [id number] 11/15/2024 Alexa Martinez Plan Of Treatment Next Appt Details Provider Name:Bon Rodriguez , 03/23/2025 10:00:00 AM, [address], [place], [id number], Progress Notes * Morelia GODOY ADOB: (69 yo F)Acc No.[id number]:11/15/2024 Medical Note Patient: Issac Morelia [place] Provider: Dg Martinez :1955 A ge:69 Y S ex:Female Date:11/15/2024 Address:[address] [place] [address], [address], [place], [id number] Subjective: * Chief Complaints: * 1 . Hematuria. * Medical History: Objective: * Vitals: Assessment: Plan: * Treatment: * Billing Information: * Visit Code: * Procedure Codes: * Electronic signature of CINDY Calderon sa on 03/14/2025 at 01:24 AM EDT Sign off status: Pending * Provider: Dg Martinez Date: 0 11/15/2024 Generated for Elziabeth salas/Brent/Kaylin on: 0 03/14/2025 01:24 AM EDT
--- OUTSIDE RECORDS SUMMARY | 2025-01-24 13:27 | XMS_ITS ---
Author Organization [facility] in [place] Address [address] [place] [address] Care Team Providers Care Cable Installation Manager Name Role Phone Uche Sheldon Primary Care Provider REASON FOR VISIT stress- Encounters Encounter Location Date Provider Diagnosis [facility] [address] [place] [address] 01/24/2025 Uche Sheldon Plan Of Treatment Next Appt Details Provider Name:Uche Suraj Sheldon, 10:30:00 AM, [address] [place], [address], Progress Notes * Bernardino GODOYB:[birth year] (69 yo F)Acc No.[id number]:01/24/2025 Patient: Issac Morelia WHEATLEY :1955 A ge:69 Y S ex:Female Address:[address] [place] [address], [address], [place], [address] * true * Date: Generated for Michellei maritza/Brent/eTransmitting on: 0 03/14/2025 01:24 AM EDT
--- OUTSIDE RECORDS SUMMARY | 2025-02-13 08:54 | XMS_ITS ---
Author Organization [facility] in [place] Address [address] [place] [address] Care Team Providers Care Flag Decorator Name Role Phone Uche Sheldon Primary Care Provider REASON FOR VISIT Refill Medications Medication SIG (Take, Route, Fr equency, Duration) Notes Start Date End Date Status Ondansetron 4 MG DISSOLVE 1 TABLET BY MOUTH 4 TIMES A DAY for 5 Active Encounters Encounter Location Date Provider Diagnosis [facility] [address] [place] [address] 02/13/2025 Uche Sheldon NSTEMI (non-ST elevation myocardial infarction) I21.4 Assessments Encounter Date Diagnosis (ICD Code) Assessment Notes Treatment Notes Treatment Clinical Notes Section Notes 02/13/2025 NSTEMI (non-ST elevation myocardial infarction) (ICD-10 - I21.4) Plan Of Treatment Medication Medication Name Sig Start Date Stop Date Notes Ondansetron 4 MG DISSOLVE 1 TABLET BY MOUTH 4 TIMES A DAY for 5 Next Appt Details Provider Name:Uche Sheldon, 10:30:00 AM, [address] [place], [place], [address], Progress Notes * Bernardino GODOYB:[birth year] (69 yo F)Acc No.[id number]:02/13/2025 Patient: Issac Morelia WHEATLEY :1955 A ge:69 Y S ex:Female Address:[address] [place] [address], [address], [place], [address] * Refills Refill Ondansetron Tablet Disintegrating, 4 MG, 20 Tablet, DISSOLVE 1 TABLET BY MOUTH 4 TIMES A DAY, 5, Refills=0 * true * Date: Generated for Elizabeth salas/Brent/Kaylin on: 0 03/14/2025 01:25 AM EDT
--- OUTSIDE RECORDS SUMMARY | 2025-03-12 07:12 | XMS_ITS ---
Author Organization [facility] in [place] Address [address] [place] [address] Care Team Providers Care Strings Teacher Name Role Phone Pito Uche Primary Care Provider REASON FOR VISIT rf isosorbide Medications Medication SIG (Take, Route, Frequency, Duration) Notes Start Date End Date Status Isosorbide Mononitrate ER 30 MG 2 tablet in the morning Orally Once a day for 30 days Active Protonix 40 MG 1 tablet Orally Once a day for 30 days 01/09/2025 Active Ondansetron 4 MG DISSOLVE 1 TABLET BY MOUTH 4 TIMES A DAY for 5 Active Encounters Encounter Location Date Provider Diagnosis [facility] [address] [place] [id number] 03/12/2025 Uche Sheldon Plan Of Treatment Medication Medication Name Sig Start Date Stop Date Notes Isosorbide Mononitrate ER 30 MG 2 tablet in the morning Orally Once a day for 30 days Next Appt Details Provider Name:Uche Sheldon, 10:30:00 AM, [address] [place], [address], Progress Notes * Tariq GODOY:[birth year] (69 yo F)Acc No.[id number]:03/12/2025 Patient: Issac Morelia WHEATLEY :1955 A ge:69 Y S ex:Female Address:[address], [address], [place], [address] * Refills Refill Isosorbide Mononitrate ER Tablet Extended Release 24 Hour, 30 MG, Orally, 60 Tablet, 2 tablet in the morning, Once a day, 30 days, Refills=11 Subjective: * Chief Complaints: * R f isosorbide * Medical History: * Surgical History: * Hospitalization/Major Diagno stic Procedure: * Medications: T akingIsosorbide Mononitrate ER 30 MG Tablet Extended Release 24 Hour 2 tablet in the morning Orally Once a day Ondansetron 4 MG Tablet Disintegrating DISSOLVE 1 TABLET BY MOUTH 4 TIMES A DAY Protonix(Pantoprazole Sodium) 40 MG Tablet Delayed Release 1 tablet Orally Once a day Medication List reviewed and reconciled with the patientTaking Isosorbide Mononitrate ER 30 MG Tablet Extended Release 24 Hour 2 tablet in the morning Orally Once a day Taking Ondansetron 4 MG Tablet Disintegrating DISSOLVE 1 TABLET BY MOUTH 4 TIMES A DAY Taking Protonix(Pantoprazole Sodium) 40 MG Tablet Delayed Release 1 tablet Orally Once a day Medication List reviewed and reconciled with the patient Objective: * Vitals: * Physical Examination: Assessment: Plan: * Treatment: * Procedure Codes: * true * Date: Generated for Elizabeth salas/Brent/Kaylin on: 03/14/2025 01:25 AM EDT
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
--- OUTSIDE RECORDS SUMMARY | 2025-03-14 01:24 | XMS_ITS | Patient Health Record ---
Author Organization [facility] in [place] Address [address] [place] [address] Care Team Providers Care Youth Manager Name Role Phone Uche Valles Primary Care Provider Allergies No Known Allergies Results Component Value Reference Range Notes NM gui perf SPECT rest str Reviewed date:01/24/2025 05:27:31 PM Interpretation: Performing Lab: Notes/Report: Source Facility: [place] [address] Nuclear Medicine Report Signed Patient: DUYEN GODOY MR#: [id number] : 1955 Acct:[id number] Age/Sex: 69 / F ADM Date: 01/23/25 Loc: NM Attending Dr: Isacc Valles M.D. Ordering Physician: Isacc Valles M.D. Date of Service: 01/23/25 Procedure(s): NM gui perf SPECT rest str Accession Number(s): [id number] cc: Isacc Valles M.D.; Yessica Sheffield Patient Name: DUYEN GODOY MR#: [id number] : 1955 Exam Date: 01/23/2025 Ordering Doctor: DR ISACC VALLES . RADIOLOGY REPORT PROCEDURE: NM GUI PERF SPECT REST STR COMPARISON: None. INDICATIONS: CHEST PAIN, SHORTNESS OF BREATH, NSTEMI TECHNIQUE: Exam Description: Rest/Stress one day protocol gated SPECT Rest Imagin.0 mCi Tc-99m Cardiolite IV on 01/23/2025 Stress Imaging 29.6 mCi Tc-99m Cardiolite IV on 01/23/2025 Exercise Protocol: 0.4 mg Lexiscan given IV Heart Rate (bpm): Rest: 51 Max: 66 PMHR: 44 Blood Pressure: Rest: 134/78 Max: 134/78 Symptoms: Rest and peak stress ECG findings were pending, and the exercise portion of the study was pending per attending physician [facility]. For more details, please see separate cardiac stress test report. FINDINGS: QUALITY OF STUDY: Good PERFUSION DEFECT: LOCATION: N/A SIZE: N/A SEVERITY: N/A TYPE: N/A WALL MOTION: Normal wall motion LV SIZE: 72 mL. TID / TCD: 1.1 LVEF: Calculated EF 70%. SUMMARY: Myocardial perfusion imaging study is normal CONCLUSION: 1. Myocardial perfusion is normal with soft tissue attenuation 2. Normal global left ventricular systolic function 3. No evidence of transient ischemic dilatation Dictated by: Graciela Matthew M.D. on 01/24/2025 at 15:56 Approved by: Graciela Matthew M.D. on 01/24/2025 at 15:58 Dictated By: Graciela Matthew M.D. Signed By: 01/24/25 1559 DD/ 1558 TD/TT: Compensation Expert: [place] [address] Nuclear Medicine Report Signed Patient: DUYEN GODOY MR#: [id number] : 1955 Acct:[id number] Age/Sex: 69 / F ADM Date: 01/23/25 Loc: MERRY Attending Dr: Sanjuanita Valles M.D. Ordering Physician: Isacc Valles M.D. Date of Service: 01/23/25 Procedure(s): NM gui perf SPECT rest str Accession Number(s): [id number] cc: Isacc Valles M.D. ; Yessica Sheffield Patient Name: DUYEN GODOY MR#: [id number] : 1955 Exam Date: 01/23/2025 Ordering Doctor: DR ISACC VALLES . RADIOLOGY REPORT PROCEDURE: NM GUI PE RF SPECT REST STR COMPARISON: None. INDICATIONS: CHEST P AIN, SHORTNESS OF BREATH, NSTEMI TECHNIQUE: Exam Description: Rest/Stress one day protocol gated SPECT Rest Imagin.0 m Ci Tc-99m Cardiolite IV on 01/23/2025 Stress Imaging 29.6 mCi Tc-99m Cardiolite IV on 01/23/2025 Exercise Protocol: 0 .4 mg Lexiscan given IV Heart Rate (bpm): Re st: 51 Max: 66 PMHR: 44 Blood Pressure: Rest : 134/78 Max: 134/78 Symptoms: Rest and peak stress ECG findings were pending, and the exercise portion of the study was pendin g per attending physician [facility]. For more details, please see separate cardiac stress test report. FINDINGS: QUALITY OF STUDY: Good PERFUSION DEFECT: LOCATION: N/A SIZE: N/A SEVERITY: N/A TYPE: N/A WALL MOTION: Normal wall motion LV SIZE: 72 mL. TID / TCD: 1.1 LVEF: Calculated EF 70%. SUMMARY: Myocardial perfusion imaging study is normal CONCLUSION: 1. Myocardial perfus ion is normal with soft tissue attenuation 2. Normal global lef t ventricular systolic function 3. No evidence of transient ischemic dilatation Dictated by: Graciela Matthew M.D. on 01/24/2025 at 15:56 Approved by: Graciela Matthew M.D. on 01/24/2025 at 15:58 Dictated By: Graciela Tony M.D. Signed By: 01/24/25 1559 DD/ 1558 TD/TT: Compensation Expert: REMY echo doppler complete Reviewed date:01/02/2025 08:31:59 PM Interpretation: Performing Lab: Notes/Report: Source Facility: [facility] [place] [address] [place] [address] Cardiology Report Signed Patient: DUYEN GODOY MR#: [id number] : 1955 Acct:[id number] Age/Sex: 69 / F ADM Date: 01/01/25 Loc: MS 222-[address]: Shaikh Alysha Koehler Ordering Physician: Isacc Valles M.D. Date of Service: 01/02/25 Procedure(s): CA echo doppler complete Accession Number(s): [id number] cc: Isacc Valles M.D.; Yessica Sheffield Patient Name: DUYEN GODOY MR#: [id number] : 1955 Exam Date: 01/02/2025 Ordering Doctor: DR Isacc Valles . ECHOCARDIOGRAM REPORT PROCEDURE: CA ECHO DOPPLER COMPLETE INDICATIONS: elevated trop COMPARISON: None. DESCRIPTION: COMPLETE ECHOCARDIOGRAM Real-time transthoracic echocardiography with 2D, M-mode, spectral and color flow Doppler performed. QUALITY: Technical quality was good. LEFT VENTRICLE: Normal chamber size. Thickened septal wall. Moderate to severe concentric left ventricular hypertrophy. There is systolic anterior motion of the anterior mitral valve leaflet with increased doppler velocities through the LVOT at rest, with a peak gradient of 58 mmHg. Patient was unable to perform Valsalva maneuver. LV EF: Calculated left ventricular ejection fraction is Hyperdynamic at 75%. DIASTOLIC: diastolic function is indeterminate. ATRIAL SEPTUM: Technically difficult, not well visualized. LEFT ATRIUM: Normal chamber size. RIGHT ATRIUM: Normal chamber size. RIGHT VENTRICLE: Normal chamber size. Normal right ventricular systolic function. TRICUSPID VALVE: Normal mobility and thickness. No stenosis with trivial regurgitation. No evidence of pulmonary hypertension. MITRAL VALVE: Normal mobility and thickness. No evidence of mitral valve stenosis. There is no mitral annular calcification. Mild mitral regurgitation. AORTIC VALVE: Normal trileaflet appearance. Thickened aortic valve. Normal leaflet mobility. There does not appear to be aortic stenosis on 2D imaging. No aortic regurgitation. AORTIC ROOT: Normal diameter and appearance measuring 3.1 cm. Ascending aorta is normal in size, measuring 3.6 cm. PULMONIC VALVE: Normal thickness and mobility. No stenosis. Trivial regurgitation. PERICARDIUM: No evidence of pericardial effusion. IVC: Collapses with inspirations. Measuring 1.8 cm. PLEURA: CONCLUSION: 1. Moderate-severe concentric left ventricular hypertrophy with increased thickness of the basal interventricular septum at 1.8 cm. Hyperdynamic LV systolic function [LVEF 75%] with increased LVOT velocities and systolic anterior motion of the anterior mitral valve leaflet with a peak resting LVOT gradient of 58 mmHg. 2. Normal left ventricular size and systolic function. 3. Mild mitral regurgitation. 4. 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 5. Further imaging such as transesophageal echocardiogram and/or cardiac MRI is recommended. Adult Echocardiography Procedure Report Left Ventricle LVEDD (3.7 - 5.6 cm): 3.94 cm LVESD (2.2 - 4.0 cm): 2.83 cm LVIVS thickness (0.6 - 1.2 cm): 1.84 cm LVPW thickness (0.5 - 1.0 cm): 1.49 cm e': 0.06 m/s E - e': 14.58 LVOT Diameter 1.98 cm Left Ventricular Ejection Fraction: 75 % Left Atrium LA Volume Index (2D A2C): 24.48 ml/m2 Left Atrium Systolic Dimension: 3.99 cm Mitral Valve MV E to A Ratio: 1 Mitral Valve A-Wave Peak Velocity: 0.86 m/s Mitral Valve E-Wave Peak Velocity: 0.86 m/s Right Ventricle RV Internal Diastolic Dimension: 3.02 cm Aorta AO Root Diam: 3.09 cm Aortic Valve Peak Velocity(Antegrade Flow): 3.82 m/s Peak Gradient(Antegrade Flow): 58.47 mm[Hg] Mean Velocity(Antegrade Flow): 2.49 m/s Mean Gradient(Antegrade Flow): 30.03 mm[Hg] Velocity Time Integral: 66.27 cm Tricuspid Valve Pulmonic Valve Peak Velocity: 0.99 m/s Peak Gradient: 3.90 mm[Hg], 3.90 mm[Hg] Right Atrium Right Atrium Systolic Pressure: 42.05 ml, 42.05 ml Dictated by: Yael Parra M.D. on 01/02/2025 at 18:16 Approved by: Yael Parra M.D. on 01/02/2025 at 18:26 Dictated By: YAEL PARRA Signed By: 01/02/251826 DD/ 25 TD/TT: Compensation Expert: [place] [address] Cardiology Report Signed Patient: DUYEN GODOY MR#: [id number] : 1955 Acct:[id number] Age/Sex: 69 / F ADM Date: 01/01/25 Loc: MS 222-[address]: Shaikh Alysha Koehler Ordering Physician: Isacc Valles M.D. Date of Service: 01/02/25 Procedure(s): CA ech o doppler complete Accession Number(s): [id number] cc: Isacc Valles M.D. ; Yessica Sheffield Patient Name: DUYEN GODOY MR#: [id number] : 1955 Exam Date: 01/02/2025 Ordering Doctor: DR Isacc Valles . ECHOCARDIOGRAM REPORT PROCEDURE: CA ECHO D OPPLER COMPLETE INDICATIONS: elevated trop COMPARISON: None. DESCRIPTION: COMPLET E ECHOCARDIOGRAM Real-time transthoracic echocardiography wit h 2D, M-mode, spectral and color flow Doppler performed. QUALITY: Technical q uality was good. LEFT VENTRICLE: Norm al chamber size. Thickened septal wall. Moderate to severe concentric le ft ventricular hypertrophy. There is systolic anterior motion of the anteri or mitral valve leaflet with increased doppler velocities through the LVOT at rest, with a peak gradient of 58 mmHg. Patient was unable to perform Valsalva maneuver. LV EF: Calculated le ft ventricular ejection fraction is Hyperdynamic at 75%. DIASTOLIC: diastolic function is indeterminate. ATRIAL SEPTUM: Techn ically difficult, not well visualized. LEFT ATRIUM: Normal chamber size. RIGHT ATRIUM: Normal chamber size. RIGHT VENTRICLE: Nor mal chamber size. Normal right ventricular systolic function. TRICUSPID VALVE: Nor mal mobility and thickness. No stenosis with trivial regurgitation. No ev idence of pulmonary hypertension. MITRAL VALVE: Normal mobility and thickness. No evidence of mitral valve stenosis. There is n o mitral annular calcification. Mild mitral regurgitation. AORTIC VALVE: Normal trileaflet appearance. Thickened aortic valve. Normal leaflet mobil ity. There does not appear to be aortic stenosis on 2D imaging. No aortic regurgitation. AORTIC ROOT: Normal diameter and appearance measuring 3.1 cm. Ascending aorta is normal in s ize, measuring 3.6 cm. PULMONIC VALVE: Norm al thickness and mobility. No stenosis. Trivial regurgitation. PERICARDIUM: No evid ence of pericardial effusion. IVC: Collapses with inspirations. Measuring 1.8 cm. PLEURA: CONCLUSION: 1. Moderate-severe concentric left ventricular hypertrophy with increased thickness of the bas al interventricular septum at 1.8 cm. Hyperdynamic LV systolic function [L VEF 75%] with increased LVOT velocities and systolic anterior motion of t he anterior mitral valve leaflet with a peak resting LVOT gradient of 58 mmHg. 2. Normal left ventr icular size and systolic function. 3. Mild mitral regurgitation. 4. Phenotype is sugg estive of hypertrophic obstructive cardiomyopathy. 5. Further imaging s uch as transesophageal echocardiogram and/or cardiac MRI is recommended. Adult Echocardiograp hy Procedure Report Left Ventricle LVEDD (3.7 - 5.6 cm) : 3.94 cm LVESD (2.2 - 4.0 cm) : 2.83 cm LVIVS thickness (0.6 - 1.2 cm): 1.84 cm LVPW thickness (0.5 - 1.0 cm): 1.49 cm e': 0.06 m/s E - e': 14.58 LVOT Diameter 1.98 cm Left Ventricular Eje ction Fraction: 75 % Left Atrium LA Volume Index (2D A2C): 24.48 ml/m2 Left Atrium Systolic Dimension: 3.99 cm Mitral Valve MV E to A Ratio: 1 Mitral Valve A-Wave Peak Velocity: 0.86 m/s Mitral Valve E-Wave Peak Velocity: 0.86 m/s Right Ventricle RV Internal Diastoli c Dimension: 3.02 cm Aorta AO Root Diam: 3.09 cm Aortic Valve Peak Velocity(Antegr shante Flow): 3.82 m/s Peak Gradient(Antegr shante Flow): 58.47 mm[Hg] Mean Velocity(Antegr shante Flow): 2.49 m/s Mean Gradient(Antegr shante Flow): 30.03 mm[Hg] Velocity Time Integr al: 66.27 cm Tricuspid Valve Pulmonic Valve Peak Velocity: 0.99 m/s Peak Gradient: 3.90 mm[Hg], 3.90 mm[Hg] Right Atrium Right Atrium Systoli c Pressure: 42.05 ml, 42.05 ml Dictated by: Yael Parra M.D. on 01/02/2025 at 18:16 Approved by: Yael Parra M.D. on 01/02/2025 at 18:26 Dictated By: YAEL PARRA Signed By: 01/02/251826 DD/ 25 TD/TT: Compensation Expert: SALEEM Reviewed date:01/02/2025 02:23:43 PM Interpretation: Performing Lab: Notes/Report: Comment from ER lab please [facility] , NT Pro B Type Natriuretic Pept 653.0 <=900.0 pg/mL Performing Lab: see note ML - [facility] Reason For Referral No Information Medications Medication SIG (Take, Route, Frequency, Duration) Notes Start Date End Date Status Isosorbide Mononitrate ER 30 MG 2 tablet in the morning Orally Once a day for 30 days Active Protonix 40 MG 1 tablet Orally Once a day for 30 days 01/09/2025 Active Ondansetron 4 MG DISSOLVE 1 TABLET BY MOUTH 4 TIMES A DAY for 5 Active Social History Tobacco Use: Social History Observation Description Date Details (start date - stop date) Former Smoker NA - NA Tobacco Control (Standard) Question Answer Notes Tobacco use: Former smoker AUDIT-C (Standard) Question Answer Notes Did you have a drink containing alcohol in the p ast year? 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) Active confirmed Problem 171928486 Chronic kidney disease, stage 2 (mild) (N18.2) Active confirmed Problem 986585900 emt intermediate (current) use of insulin (Z79.4) Active confirmed Problem Hypertension (64512753) HTN (hypertension) (I10) Active confirmed Problem 35218179 Constipation, unspecified constipation type (K59.00) Active confirmed Problem Gastritis (9243599) Gastritis (K29.70) Active confirmed Problem 148642415 Hypoglycemia (E16.2) Active confirmed Problem Diverticulitis (90406843) Diverticulitis (K57.92) Active confirmed Problem Seasonal allergic rhinitis (371114588) Seasonal allergic reaction (J30.2) Active confirmed Problem Acute urinary tract infection (968599833) Acute UTI (N39.0) Active confirmed Problem Acute non-ST segment elevation myocardial infarction (817052129) NSTEMI (non-ST elevation myocardial infarction) (I21.4) Active confirmed Problem 65087918 Primary hypertension (I10) Active confirmed Vital Signs Blood pressure diastolic 62 mm Hg 01/09/2025 Height 71 in 01/09/2025 Blood pressure systolic 130 mm Hg 01/09/2025 Weight 199.4 lbs 01/09/2025 BMI 27.81 kg/m2 01/09/2025 Procedures Procedure Date Ordered Date Performed Result Body Sit e *CARDIO Stress Test - Lexiscan Nuclear 01/09/2025 N/A Encounters Encounter Location Date Provider Diagnosis [id number] [place] [address] 01/09/2025 Uche Valles NSTEMI (non-ST eleva tion myocardial infarction) I21.4 ; Gastritis K29.70 ; Seasonal allergic reaction J30.2 ; Acute UTI N39.0 and Diverticulitis K57.[address] [address] 01/02/[address] [address] 01/07/[address] [address] 01/09/[address] [address] 01/09/2025 [facility] [address] [place] [address] 01/24/2025 Uche Valles [facility] [address] [place] [address] 02/13/2025 Uche Valles NSTEMI (non-ST eleva tion myocardial infarction) I21.[address] [address] 03/12/2025 Uche Valles Assessments Encounter Date Diagnosis (ICD Code) Assessment Notes Treatment Notes Treatment Clinical Notes Section Notes 01/09/2025 Gastritis (ICD-10 - K29.70) 01/09/2025 NSTEMI (non-ST elevation myocardial infarction) (ICD-10 - I21.4) NSTEMI type II - neeeds lexiscan - 02/13/2025 NSTEMI (non-ST elevation myocardial infarction) (ICD-10 - I21.4) 01/09/2025 Seasonal allergic reaction (ICD-10 - J30.2) 01/09/2025 Acute UTI (ICD-10 - N39.0) 01/09/2025 Diverticulitis (ICD-10 - K57.92) Plan Of Treatment Pending Test Test Name Order Date *CARDIO Stress Test - Lexiscan Nuclear 0 01/09/2025 Next Appt Details Provider Name:Uche Valles, 10:30:00 AM, [address] [facility], [place], [address], Insurance Providers Payer Name Payer Address Payer Phone Subscriber Number Group Number Insured Name Patient Relationship to Insured Coverage Start Date Coverage End Date [facility] [employer] [address] [address] [place] [id number] [place] ch Self - patient is the insured
--- OUTSIDE RECORDS SUMMARY | 2025-03-14 01:24 | XMS_ITS | Encounter Summary ---
Author Organization [employer] Sys [employer] Address [facility] [address] [place] [address] Care Team Providers Care Edge Polisher Name Role Phone Alexa Martinez APRN-CARLOS ENRIQUE Primary Care Provider + Reason for Visit * Reason Comments Med Refill Encounter Details Date Type Department Care Team (Late st Contact Info) Description 06/20/2021 Refill [facility] [address] [facility] [address] [place] [address] Berta Grey, MEGHANN [address] [place] [address] Med Refill Social History Tobacco Use Types Packs/Day Years Used Date Smoking Tobacco: Former Cigarettes 0.3 30 Smokeless Tobacco: Never Alcohol Use Standard Drinks/Week Comments No 0 (1 standard drink = 0.6 oz pur e alcohol) Childcare Answer Date Recorded Childcare Unknown 02/22/2019 Employment Answer Date Recorded Employment Unknown 02/22/2019 Purpose - Life Answer Date Recorded Purpose and direction in life Unknown Comments No Sex and Gender Information Value Date Recorded Sex Assigned at Not on file Legal Sex Female 11:42 AM EDT Gender Identity Not on file Sexual Orientation Not on file documented as of this encounter Plan of Treatment Not on file documented as of this encounter Visit Diagnoses Not on filedocumented in this encounter Care Teams Edge Polisher Relationship Specialty Start Date End Date Alexa Martinez APRN-CNP [address] [place], [place] [id number] PCP - General Nurse Practitioner 11/13/24 documented as of this encounter
--- OUTSIDE RECORDS SUMMARY | 2025-03-14 01:24 | XMS_ITS | Encounter Summary ---
Author Organization [employer] Address [facility] [id number] [address] [place] [address] Care Team Providers Care Pet Stylist Name Role Phone Alexa Martinez APRN-CARLOS ENRIQUE Primary Care Provider + Reason for Visit * Reason Comments Med Refill Encounter Details Date Type Department Care Team (Late st Contact Info) Description 04/04/2021 Refill [facility] [address] [facility] [address] [place] [address] Georgina Osorio, STOREKEEPER ENGINEERING-COATING MACHINE FEEDER [address] [place] [address] Med Refill Social History Tobacco Use Types [...] on filedocumented in this encounter Care Teams Pet Stylist Relationship Specialty Start Date End Date Alexa Martinez APRN-CNP [address] [place] [address] PCP - General Nurse Practitioner 11/13/24 documented as of this encounter
--- OUTSIDE RECORDS SUMMARY | 2025-03-14 01:24 | XMS_ITS | Referral Summary ---
Author Organization [facility] Address [address] [place] [address] Care Team Providers Care Bmx Rider Name Role Phone Unavailable Primary Care Provider Unavailabl e Social History Tobacco Use Types Packs/Day Years Used Date Smoking Tobacco: Never Assessed [place] Safety & Environment Answer Date Rec orded Fear of Current or Ex-Partner Not on file Emotionally Abused Not on file 11/04/2023 Physically Abused Not on file 11/04/2023 Sexually Abused Not on file 11/04/2023 Physically or Sexually Abused Not on file Comments Unknown Sex and Gender Information Value Date Recorded Sex Assigned at Not on file Legal Sex Female 10:32 PM EDT Gender Identity Not on file Sexual Orientation Not on file Plan of Treatment Not on file Insurance [address] [place] [address] [facility] [address]
--- OUTSIDE RECORDS SUMMARY | 2025-03-14 01:24 | XMS_ITS | Encounter Summary ---
Author Organization [facility] Address [address] [place] [address] Care Team Providers Care Second Watch Sergeant Name Role Phone Yessica Sheffield MD Primary Care Provider [phone] Encounter Details Date Type Department Care Team ([facility] Contact Info) Description 03/01/2025 Telephone [facility] [address] [facility] [address] [place] [address] Adan Pearson DPSuraj [address] [facility] [address] [place] [address] Social History Tobacco Use Types Packs/Day Years Used Date Smoking Tobacco: Former Cigarettes Passive Smoke Exposure: Past Comments:Last smoked: 1-3 mo [facility] Alcohol Use Standard Drinks/Week Comments Not Currently 0 (1 standard drink = 0.6 oz pur e alcohol) caffeine: 2-3 cups/day Comments Unknown Sex and Gender Information Value Date Recorded Sex Assigned at Not on file Legal Sex Female 7:35 PM EDT Gender Identity Not on file Sexual Orientation Not on file documented as of this encounter Miscellaneous Notes * Telephone Encounter - Julian Starkey - 03/01/2025 12:43 PM EDT pt cancelled appt - tried to call to rs and no vm set up documented in this encounter Plan of Treatment Upcoming Encounters Date Type Department Care Team ([facility] Contact Info) Description 03/22/2025 10:40 AM EDT Office Visit [facility] [address] [place] [address] Adan Pearson, DPSuraj [address] [facility] [address] [place] [address] 04/19/2025 10:50 AM EDT Office Visit [facility] [address] [place] [address] Lety Warren MD [address] [place] [address] documented as of this encounter Visit Diagnoses Not on filedocumented in this encounter Care Teams Second Watch Sergeant Relationship Specialty Start Date End Date Yessica Sheffield MD [address] [place] [address] PCP - General Pediatrics 04/26/23 documented as of this encounter
--- OUTSIDE RECORDS SUMMARY | 2025-03-14 01:24 | XMS_ITS | Encounter Summary ---
Author Organization [employer] Address [facility] [id number] [address] [facility] [place] [address] Care Team Providers Care Stitching Machine Setter Name Role Phone Alexa Martinez APRN-CARLOS ENRIQUE Primary Care Provider + Encounter Details Date Type Department Care Team (Late st Contact Info) Description 07/06/2021 Telephone [facility] [address] [place] [address] Patti Hernandez APRN-SERVICE DESK ASSOCIATE [address] [facility] left org 12/2024 [place] [address] Social History Tobacco Use Types Packs/Day Years [...] on filedocumented in this encounter Care Teams Stitching Machine Setter Relationship Specialty Start Date End Date Alexa Martinez APRN-CNP [address] [place] [address] PCP - General Nurse Practitioner 11/13/24 documented as of this encounter
--- OUTSIDE RECORDS SUMMARY | 2025-03-14 01:24 | XMS_ITS | Encounter Summary ---
Author Organization [facility] Address [facility] [place]-C37752 [address] [place] [address] Care Team Providers Care Swine Nutritionist Name Role Phone Alexa Martinez APRN-CARLOS ENRIQUE Primary Care Provider + Encounter Details Date Type Department Care Team (Late st Contact Info) Description 07/06/2021 Documentation [facility] Assistant Sign In [address] [facility] [id number] Patti Hernandez APRN-[employer] [address] [facility] Prov left org 12/2024 [place] [address] Social History Tobacco Use Types Packs/Day Years [...] on filedocumented in this encounter Care Teams Swine Nutritionist Relationship Specialty Start Date End Date Alexa Martinez APRN-CNP [address] [place] [address] PCP - General Nurse Practitioner 11/13/24 documented as of this encounter
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
--- OUTSIDE RECORDS SUMMARY | 2025-03-14 01:24 | XMS_ITS | Encounter Summary ---
Author Organization [employer] [facility] tem Address [facility]-[id number] [address] [place] [address] Care Team Providers Care Community Service Organization Director Name Role Phone Alexa Martinez APRNSTERLING Primary Care Provider + Reason for Visit * Reason Comments Med Refill Encounter Details Date Type Department Care Team (Late st Contact Info) Description 10/29/2021 Refill [facility] [address] [place] [address] [place] [address] Jostin Sadler PA-C [address] [phone] Med Refill Social History Tobacco Use Types [...] encounter Miscellaneous Notes * Telephone Encounter - Janet Stoll RN - 10/29/2021 10:16 AM EST Previous encounter notes from 07/06/2021 MAC as follows: Lisinopril 10 mg po take one tablet daily disp #2 - no refills- needs to have labwork done! Labs not yet complete. documented in this encounter Plan of Treatment Not on file documented as of this encounter Visit Diagnoses Not on filedocumented in this encounter Care Teams Community Service Organization Director Relationship Specialty Start Date End Date Alexa Martinez APRN-CNP [address] [place] [address] PCP - General Nurse Practitioner 11/13/24 documented as of this encounter
[2025-03-14 01:25] VITALS: BP 126/61; PULSE 60; TEMP 36.7; O2SAT 97; BMI 27.5
--- OUTSIDE RECORDS SUMMARY | 2025-03-14 01:25 | XMS_ITS | Encounter Summary ---
Author Organization [facility] Address [address] [place] [address] Care Team Providers Care Stripping Shovel Operator Name Role Phone Yessica Sheffield MD Primary Care Provider [phone] Encounter Details Date Type Department Care Team (Late Contact Info) Description 04/20/2023 Abstract [facility] [address] [place] [phone] Az George DPM [address] [place] [address] Social History Tobacco Use Types Packs/Day Years Used Date Smoking Tobacco: Former Cigarettes Passive Smoke Exposure: Past Tobacco Cessation:Counseling Given: Not Answered Comments:Last smoked: 1-3 months Alcohol Use Standard Drinks/Week Comments Not Currently 0 (1 standard drink = 0.6 oz pur e alcohol) caffeine: 2-3 cups/day Comments Unknown Sex and Gender Information Value Date Recorded Sex Assigned at Not on file Legal Sex Female 7:35 PM EDT Gender Identity Not on file Sexual Orientation Not on file documented as of this encounter Plan of Treatment Upcoming Encounters Date Type Department Care Team (Late Contact Info) Description 03/22/2025 10:40 AM EDT Office Visit [facility] [address] [facility] [address] [place] [phone] Adan Pearson DPM [address] [facility] [address] [place] [address] 04/19/2025 10:50 AM EDT Office Visit [facility] [address] [place] [address] Lety Warren MD [address] [place] [address] documented as of this encounter Visit Diagnoses Not on filedocumented in this encounter Care Teams Stripping Shovel Operator Relationship Specialty Start Date End Date Yessica Sheffield MD [address] [place], [place] [id number] PCP - General Pediatrics 04/26/23 documented as of this encounter
--- OUTSIDE RECORDS SUMMARY | 2025-03-14 01:25 | XMS_ITS | Clinical Summary ---
Author Organization [facility] Address [address] [place] [address] Care Team Providers Care Bid Clerk Name Role Phone Unavailable Primary Care Provider Unavailabl e Social History Tobacco Use Types Packs/Day Years Used Date Smoking Tobacco: Never Assessed [place] Safety & Environment Answer Date Rec orded [...] Orientation Not on file Plan of Treatment Health Maintenance Due Date Last Done Comments CT Colonography 1955 Colonoscopy 1955 Colorectal Cancer Screening 1953 FIT-DNA 1953 FIT 1953 FOBT 1955 Medicare Annual Wellness (AWV) 1955 Sigmoidoscopy 1953 Depression Screening 1965 Adult Tetanus 1975 Mammogram 1993 Pneumococcal Vaccine: 50+ Ye ars (1 of 1 - PCV) 2003 Zoster Vaccines (1 of 2) 2003 Fall Risk Screening 2018 COVID-19 Vaccine ( - 2023-2 5 season) 2024 Influenza Vaccine (Season Ended) 2025 HIB Vaccines Aged Out No longer eligi ble based on patient's age to complete this topic HPV Vaccines Aged Out No longer eligi ble based on patient's age to complete this topic IPV Vaccines Aged Out No longer eligi ble based on patient's age to complete this topic Meningococcal B Vaccine Aged Out No l onger eligible based on patient's age to complete this topic Meningococcal Vaccine Aged Out No reema melanie eligible based on patient's age to complete this topic Rotavirus Vaccines Aged Out No longer eligible based on patient's age to complete this topic Insurance UNITED [employer]ALTH[employer]ARE MEDICARE
--- OUTSIDE RECORDS SUMMARY | 2025-03-14 01:25 | XMS_ITS | Encounter Summary ---
Author Organization [employer] Sys tem Address [facility]-[id number] [address] [place] [address] Care Team Providers Care Stem Shaper Name Role Phone Alexa Martinez ADVERTISING INTERNSHIP-COMPUTER SYSTEMS INFORMATION DIRECTOR Primary Care Provider + Reason for Visit * Reason Comments Med Refill Encounter Details Date Type Department Care Team (Late st Contact Info) Description 12/30/2020 Refill [facility] [address] [facility] [address] [place] [address] Sadi Cedillo APRN-COMPUTER SYSTEMS INFORMATION DIRECTOR [address] [place] [address] Med Refill Social History Tobacco Use Types [...] encounter Miscellaneous Notes * Telephone Encounter - Milla Cooper RN - 12/30/2020 11:26 AM EDT Refill addressed 12/31/20 documented in this encounter Plan of Treatment Not on file documented as of this encounter Visit Diagnoses Not on filedocumented in this encounter Care Teams Stem Shaper Relationship Specialty Start Date End Date Alexa Martinez APRN-CARLOS ENRIQUE [address] [place] [address] PCP - General Nurse Practitioner 11/13/24 documented as of this encounter
--- OUTSIDE RECORDS SUMMARY | 2025-03-14 01:25 | XMS_ITS | Encounter Summary ---
Author Organization [employer] Address [facility]-[id number] [address] [place] [address] Care Team Providers Care Supervisor Newspaper Deliveries Name Role Phone Juan, Alexa [employer] Primary Care Provider + Encounter Details Date Type Department Care Team (Late st Contact Info) Description 12/31/2020 Orders Only [facility] [address] [place] [address] [place] [address] Lyric Lea RN Social History Tobacco Use Types Packs/Day Years [...] on filedocumented in this encounter Care Teams Supervisor Newspaper Deliveries Relationship Specialty Start Date End Date Alexa Martinez APRN-CNP [address] [place] [address] PCP - General Nurse Practitioner 11/13/24 documented as of this encounter
--- OUTSIDE RECORDS SUMMARY | 2025-03-14 01:25 | XMS_ITS | Encounter Summary ---
Author Organization [employer] Address [facility]-[id number] [address] [place] [address] Care Team Providers Care Brim Ironer Hand Name Role Phone Alexa Martinez Primary Care Provider + Reason for Visit * Reason Comments Med Refill Encounter Details Date Type Department Care Team (Late st Contact Info) Description 12/05/2021 Refill [facility] [address] [address] Jostin Sadler PA-C [address] [place], [place] [phone] Med Refill Social History Tobacco Use Types [...] on filedocumented in this encounter Care Teams Brim Ironer Hand Relationship Specialty Start Date End Date Alexa Martinez APRN-CNP [address] [place], [place] [phone] PCP - General Nurse Practitioner 11/13/24 documented as of this encounter
--- OUTSIDE RECORDS SUMMARY | 2025-03-14 01:25 | XMS_ITS | Encounter Summary ---
Author Organization [employer] Address [facility]-[id number] [address] [place] [address] Care Team Providers Care Operator Control Room Name Role Phone Alexa Martinez Primary Care Provider + Reason for Visit * Reason Comments Med Refill Encounter Details Date Type Department Care Team (Late st Contact Info) Description 09/26/2020 Refill [facility] [address] [facility] [address] [place] [address] Jeff Ardon MD Med Refill Social History Tobacco Use Types [...] on filedocumented in this encounter Care Teams Operator Control Room Relationship Specialty Start Date End Date Alexa Martinez APRN-CNP [facility] [place], [place] [id number] PCP - General Nurse Practitioner 11/13/24 documented as of this encounter
--- OUTSIDE RECORDS SUMMARY | 2025-03-14 01:25 | XMS_ITS | Encounter Summary ---
Author Organization [employer] Address [facility]-[id number] [address] [place] [address] Care Team Providers Care Clinic Clerk Name Role Phone Alexa Martinez APRN-CARLOS ENRIQUE Primary Care Provider + Reason for Visit * Reason Comments Med Refill Encounter Details Date Type Department Care Team (Late st Contact Info) Description 08/27/2020 Refill [facility] [address] [facility] 1 [place] [address] Jeff Ardon MD Med Refill Social History Tobacco Use Types Packs/Day Years Used Date Smoking Tobacco: Former Cigarettes 0.3 30 Smokeless Tobacco: Never Alcohol Use Standard Drinks/Week Comments No 0 (1 standard drink = 0.6 oz pur e alcohol) Childcare Answer Date Recorded Childcare Unknown 02/22/2019 Employment Answer Date Recorded Employment Unknown 02/22/2019 Comments No Sex and Gender Information Value Date Recorded Sex Assigned at Not on file Legal Sex Female 11:42 AM EDT Gender Identity Not on file Sexual Orientation Not on file documented as of this encounter Miscellaneous Notes * Telephone Encounter - Milla Cooper RN - 08/27/2020 12:27 PM EST Pt overdue for labs, called pt and she will go into [place] to get labs done documented in this encounter Plan of Treatment Not on file documented as of this encounter Visit Diagnoses Not on filedocumented in this encounter Care Teams Clinic Clerk Relationship Specialty Start Date End Date Alexa Martinez APRN-CNP [address] [place] [id number] PCP - General Nurse Practitioner 11/13/24 documented as of this encounter
--- OUTSIDE RECORDS SUMMARY | 2025-03-14 01:25 | XMS_ITS | Encounter Summary ---
Author Organization [facility] [employer] [facility] tem Address [facility]-[id number] [address] [place] [address] Care Team Providers Care Manager Social Work Name Role Phone Alexa Martinez Primary Care Provider + Encounter Details Date Type Department Care Team (Late st Contact Info) Description 05/21/2023 Telephone [facility] [address] [place] [address] Yudi Aguiar CNA Social History Tobacco Use Types Packs/Day Years [...] on filedocumented in this encounter Care Teams Manager Social Work Relationship Specialty Start Date End Date Alexa Martinez APRN-CNP [facility] [place] [address] PCP - General Nurse Practitioner 11/13/24 documented as of this encounter
--- OUTSIDE RECORDS SUMMARY | 2025-03-14 01:25 | XMS_ITS | CCD ---
Author Organization [facility] Care Team Providers Care Medical Transcription Radiology Name Role Phone [facility] Primary Care Unavailable HOY ., DR DEXTER [...] Unavailable Yessica Sheffield MD Primary Care Provider [phone] Dav Cardenas Attending Unavailable CORY ALBRIGHT Attending Unavailable LETY ROTHMAN Attending Unavailable LETY ROTHMAN Referring Unavailable ADAN PEARSON Attending Unavailable LETY ROTHMAN Attending Unavailable LETY ROTHMAN Referring Unavailable Allergies Allergy Classification Reported Allergen(s) Allergy Type Date of Onset Reaction(s) Facility (1 source) Acetaminophen / oxyCODONE Drug Allergy 1 [facility] (11 sources) Acetaminophen / oxyCODONE Drug Allergy 3 GI intolerance [facility] (11 sources) Dextromethorphan / guaiFENesin Drug Allergy 1 [facility] (11 sources) guaiFENesin Drug Allergy 3 [facility] Medications Current Medications Medication Drug Class(es) Dates Sig (Normalized) Sig (Original) acetaminophen 325 mg / HYDROcodone bitartrate 7.5 mg oral tablet (11 sources) Opioid Agonist HYDROcodone-acet ami nophen (Kinta) 7.5-325 MG tablet Active [id number] 200 actuat albuterol 0.09 mg/actuat metered dose [...] hyperglycemia, with long-term current use of insulin ([facility]) Take 1 tablet (10 mg) [...] hyperglycemia, with long-term current use of insulin ([facility]) Inject 4 Units under the [...] (11 sources) Polyene Antifungal Start: nystatin (Mycostatin) [id number] UNIT/GM powder Apply 2-3 application topically if [...] or split. . Active polyethylene glycol 3350 66064 mg powder for oral solution (11 sources) [...] hyperglycemia, with long-term current use of insulin ([facility]) Inject 0.5 mg under the [...] disease (1 source) Atherosclerotic heart disease of lime coronary artery without angina pectoris; Translations: [[place] W/O ANGINA PECTORIS] Onset: 05-14-2022 Chronic [...] unspecified] 06-14-2024 Chronic Other aftercare (1 source) senior living (current) use of insulin; Translations: [CHEMICAL DEPENDENCY PROFESSIONAL CURRENT USE OF INSULIN] Onset: 11-26-2022 Episodic Other aftercare (1 source) Other salvage determiner (current) drug therapy; Translations: [OTH CHEMICAL DEPENDENCY PROFESSIONAL CURRENT DRUG THERAPY] Onset: 11-26-2022 Episodic Other aftercare (1 source) terminal carman (current) use of aspirin; Translations: [LONG-TERM CURRENT USE OF ASPIRIN] Onset: 11-26-2022 Episodic Other aftercare (4 sources) Long-term current use of insulin; Translations: [terminal carman (current) use of insulin] 06-14-2024 Episodic Other [...] on 12-21-2024 Glucose Blood, POC 432 mg/dL [facility] - Hematology and Cell countson 12-21-2024 HbA1c (Bld) [Mass fraction] 12.3 % [facility] No Panel InformationOrdered By: Edna Lloyd on 12-21-2024 [facility] Provider Letteron 11-15-2024 Provider Letter Provider Letter November 15, 2024 MORELIA GODOY [address] [place] [address] [address] [place] [address] : 1955 Dear _ , We have [...] attention to this matter. Sincerely, Family Medicine [address] [address] [address] [phone] Normal [facility] Glucose (Bld) [Mass/Vol]on Glucose Blood, POC 520 mg/dL [facility] HbA1c (Bld) [Mass fraction]o n 06-14-2024 [facility] - Hematology and Cell countson 06-14-2024 HbA1c (Bld) [Mass fraction] [facility] Covid-19 PCR (CVDTBH)on 11-11 SARS-CoV-2 (COVID-19) RNA IRVIN+probe Ql (Unsp spec) Not detected Normal NOT DETECTED [facility] Comment on above: Result Comment: When diagnostic [...] for this test is supported by the [place] of Health and Human Service's declaration that [...] used). Performed By: #### P OCGLUC #### [facility] [address] [place] [address] Dr. Karmen Mccormick INFLUENZA A AND B [facility] 11-25 [facility] SEE BELOW Normal [facility] Comment on above: Result Comment: Nega tive for Flu A protein angiten. Infection due to Flu A cannot be ruled out. Flu A angiten in the sample may be below the detection limit of the test. Performed By: #### P OCGLUC #### [facility] [address] [place] [address] Dr. Karmen Mccormick [facility] SEE BELOW Normal [facility] Comment on above: Result Comment: Nega tive for Flu B protein antigen. Infection due to Flu B cannot be ruled out. Flu B antigen in the sample may be below the detection limit of the test. Performed By: #### P OCGLUC #### [facility] [address] [place] [address] Dr. Karmen Mccormick INFLUENZA A AG Negative Normal NEGATIVE SEE COMMENT [facility] Comment on above: Performed By: #### P OCGLUC #### [facility] [address] [place] [address] Dr. Karmen Mccormick INFLUENZA B AG Negative Normal NEGATIVE SEE COMMENT [facility] Comment on above: Performed By: #### P OCGLUC #### [facility] [address] [place] [address] Dr. Karmen Mccormick XR CHEST 2 Von [...] by: JANICE CAMP Date: 2022-11-25 17:31 Normal [facility] XR FOOT RT MIN 3 VIEWSon [...] by: EUFEMIA LOPEZ Date: 2022-09-09 09:54 Normal [facility] OCC BLD IMMUNO SCREENon 04-15 OCCULT BLOOD Negative Normal NEGATIVE [facility] Comment on above: Performed By: #### B MP #### [facility] [address] [address] [address] Karmen Mccormick POINT OF CARE GLUCOSEon 04-15 Glucose [Mass/Vol] 99 mg/dL Normal 74-106 [facility] Comment on above: Performed By: #### P OCGLUC #### [facility] [address] [address] [address] Karmen Mccormick POINT OF CARE GLUCOSEon 04-14 Glucose [Mass/Vol] 139 mg/dL Critically high 74-[address] [facility] Comment on above: Performed By: #### C VDTBH #### [facility] [address] [address] [address] Karmen Mccormick Glucose [Mass/Vol] 183 mg/dL Critically high [address] [place] [address] Comment on above: Performed By: #### P OCGLUC #### [facility] [address] [address] [address] Karmen Mccormick Glucose [Mass/Vol] 217 mg/dL Critically high [address] [place] [address] Comment on above: Performed By: #### P OCGLUC #### [facility] [address] [place] [address] Dr. Karmen Mccormick Glucose [Mass/Vol] 108 mg/dL Critically high [address] [place] [address] Comment on above: Performed By: #### C VDTBH #### [facility] [address] [place] [address] Dr. Karmen Mccormick CULTURE URINEon 05-10-2022 CULTURE [...] F Trimethoprim/Sulfam ethoxazole <=20 S F Normal [facility] Comment on above: Performed By: #### P OCGLUC #### [facility] [address] [place] [address] Dr. Karmen cMcormick POINT OF CARE GLUCOSEon 04-14 Glucose [Mass/Vol] 194 mg/dL Critically high [address] [place] [address] Comment on above: Performed By: #### P OCGLUC #### [facility] [address] [place] [address] Dr. Karmen Mccormick Glucose [Mass/Vol] 135 mg/dL Critically high 74-[address] [facility] Comment on above: Performed By: #### C BC #### [facility] [address] [address] [address] Karmen Mccormick Glucose [Mass/Vol] 208 mg/dL Critically high 74-[address] [facility] Comment on above: Performed By: #### P OCGLUC #### [facility] [address] [address] [address] Karmen Mccormick Glucose [Mass/Vol] 79 mg/dL Normal 74-106 [facility] Comment on above: Performed By: #### P OCGLUC #### [facility] [address] [address] [address] Karmen Mccormick IRON AND TIBCon 05-09-2022 % SATURATION 9.9 % Normal [facility] Comment on above: Performed By: #### C BC #### [facility] [address] [address] [address] Karmen Mccormick Iron [Mass/Vol] 25.0 ug/dL Critically low 50.0-170.0 [facility] Comment on above: Performed By: #### C BC #### [facility] [address] [address] [address] Karmen Mccormick TIBC DIRECT 253.0 ug/dL Normal 250.0-450.0 [facility] Comment on above: Performed By: #### C BC #### [facility] [address] [address] [address] Karmen Mccormick POINT OF CARE GLUCOSEon 04-14 Glucose [Mass/Vol] 197 mg/dL Critically high -[address] [facility] Comment on above: Performed By: #### P OCGLUC #### [facility] [address] [address] [address] Karmen Mccormick Glucose [Mass/Vol] 119 mg/dL Critically high 74-[address] [facility] Comment on above: Performed By: #### C VDTBH #### [facility] [address] [address] [address] Karmen Mccormick Glucose [Mass/Vol] 176 mg/dL Critically high 74-[address] [facility] Comment on above: Performed By: #### P OCGLUC #### [facility] [address] [place] [address] Dr. Karmen Mccormick Glucose [Mass/Vol] 118 mg/dL Critically high 74-[address] [facility] Comment on above: Performed By: #### P OCGLUC #### [facility] [address] [place] [address] Dr. Karmen Mccormick VIT B12 AND FOLATEon 022 Cobalamin (Vitamin B12) [Mass/Vol] 613.0 pg/mL Normal 193.0-986.0 [facility] Comment on above: Performed By: #### P OCGLUC #### [facility] [address] [place] [address] Dr. Karmen Mccormick FOLATE 17.90 ng/mL Normal 8.60-58.90 [facility] Comment on above: Performed By: #### P OCGLUC #### [facility] [address] [place] [address] Dr. Karmen Mccormick CBC AUTO DIFFon 05-08-2022 BASO # 0.0 103/ul Normal 0.0-0.1 [facility] Comment on above: Performed By: #### P OCGLUC #### [facility] [address] [place] [address] Dr. Karmen Mccormick Basophils/100 WBC (Bld) 0.4 % Normal 0.2-2.[address] [facility] Comment on above: Performed By: #### P OCGLUC #### [facility] [address] [place] [address] Dr. Karmen Mccormick EO # 0.2 103/ul Normal 0.0-0.7 [facility] Comment on above: Performed By: #### P OCGLUC #### [facility] [address] [place] [address] Dr. Karmen Mccormick Eosinophils/100 WBC (Bld) 2.3 % Normal 0.9-7.0 [facility] Comment on above: Performed By: #### P OCGLUC #### [facility] [address] [address] [address] Karmen Mccormick Erythrocyte distribution width (RBC) [Ratio] 13.6 % Normal 11.0-15.0 [facility] Comment on above: Performed By: #### P OCGLUC #### [facility] [address] [address] [address] Karmen Mccormick Hematocrit (Bld) [Volume fraction] 33.6 % Critically low 36.0-48.0 [facility] Comment on above: Performed By: #### P OCGLUC #### [facility] [address] [place] [address] Dr. Karmen Mccormick Hemoglobin (Bld) [Mass/Vol] 10.5 g/dL Critically low 12.0-16.0 [facility] Comment on above: Performed By: #### P OCGLUC #### [facility] [address] [place] [address] Dr. Karmen Mccormick IG # 0.03 10e3/ul Normal 0.00-0.03 [facility] Comment on above: Performed By: #### P OCGLUC #### [facility] [address] [place] [address] Dr. Karmen Mccormick IG % 0.3 % Normal 0.0-0.5 [facility] Comment on above: Performed By: #### P OCGLUC #### [facility] [address] [place] [address] Dr. Karmen Mccormick LYMPH # 1.6 103/ul Normal 1.2-3.8 [facility] Comment on above: Performed By: #### P OCGLUC #### [facility] [address] [place] [address] Dr. Karmen Mccormick Lymphocytes/100 WBC (Bld) 17.1 % Critically low 20.5-60.0 [facility] Comment on above: Performed By: #### P OCGLUC #### [facility] [address] [place] [address] Dr. Karmen Mccormick MANUAL DIFF REQ NO Normal [facility] Comment on above: Performed By: #### P OCGLUC #### [facility] [address] [address] [address] Karmen Mccormick MCH (RBC) [Entitic mass] 29.1 pg Normal 26.7-34.0 [facility] Comment on above: Performed By: #### P OCGLUC #### [facility] [address] [place] [address] Dr. Karmen Mccormick MCHC (RBC) [Mass/Vol] 31.3 g/dL Normal 29.9-35.2 [facility] Comment on above: Performed By: #### P OCGLUC #### [facility] [address] [place] [address] Dr. Karmen Mccormick MCV (RBC) [Entitic vol] 93.1 fL Normal 81.0-99.[address] [facility] Comment on above: Performed By: #### P OCGLUC #### [facility] [address] [place] [address] Dr. Karmen Mccormick MONO # 0.6 103/ul Normal 0.3-0.8 [facility] Comment on above: Performed By: #### P OCGLUC #### [facility] [address] [place] [address] Dr. Karmen Mccormick Monocytes/100 WBC (Bld) 6.4 % Normal 1.7-12.[address] [facility] Comment on above: Performed By: #### P OCGLUC #### [facility] [address] [place] [address] Dr. Karmen Mccormick NEUT # 6.8 103/ul Critically high 1.4-6.5 [facility] Comment on above: Performed By: #### P OCGLUC #### [facility] [address] [place] [address] Dr. Karmen Mccormick Neutrophils/100 WBC (Bld) 73.5 % Normal 43.0-75.0 [facility] Comment on above: Performed By: #### P OCGLUC #### [facility] [address] [place] [address] Dr. Karmen Mccormick Platelet mean volume (Bld) [Entitic vol] 10.0 fL Normal 9.5-13.5 [facility] Comment on above: Performed By: #### P OCGLUC #### [facility] [address] [address] [address] Karmen Mccormick PLT 223 103/ul Normal 150-450 [facility] Comment on above: Performed By: #### P OCGLUC #### [facility] [address] [address] [address] Karmen Mccormick RBC 3.61 106/ul Critically low 4.20-5.40 [facility] Comment on above: Performed By: #### P OCGLUC #### [facility] [address] [address] [address] Karmen Mccormick WBC 9.3 103/ul Normal 4.0-11.0 [facility] Comment on above: Performed By: #### P OCGLUC #### [facility] [address] [address] [address] Karmen Mccormick POINT OF CARE GLUCOSEon 04-14 Glucose [Mass/Vol] 163 mg/dL Critically high 74-[address] [facility] Comment on above: Performed By: #### P OCGLUC #### [facility] [address] [address] [address] Karmen Mccormick Glucose [Mass/Vol] 87 mg/dL Normal 74-106 [facility] Comment on above: Performed By: #### P OCGLUC #### [facility] [address] [address] [address] Karmen Mccormick Glucose [Mass/Vol] 183 mg/dL Critically high 74-[address] [facility] Comment on above: Performed By: #### C BC #### [facility] [address] [address] [address] Karmen Mccormick Glucose [Mass/Vol] 146 mg/dL Critically high 74-[address] [facility] Comment on above: Performed By: #### P OCGLUC #### [facility] [address] [address] [address] Karmen Mccormick PROF CHEM 8 (BAS METB)on Anion gap [Moles/Vol] 11.7 mmol/L Normal [facility] Comment on above: Performed By: #### C BC #### [facility] [address] [address] [address] Karmen Mccormick Calcium [Mass/Vol] 8.4 mg/dL Critically low 8.5-10.1 Th [facility] Comment on above: Performed By: #### C BC #### [facility] [address] [address] [address] Karmen Mccormick Chloride [Moles/Vol] 104 mmol/L Normal 98-107 [facility] Comment on above: Performed By: #### C BC #### [facility] [address] [address] [address] Karmen Mccormick CO2 [Moles/Vol] 25.2 mmol/L Normal 21.0-32.0 [facility] Comment on above: Performed By: #### C BC #### [facility] [address] [place] [address] Dr. Karmen Mccormick Creatinine [Mass/Vol] 0.82 mg/dL Normal 0.55-1.02 [facility] Comment on above: Performed By: #### C BC #### [facility] [address] [address] [address] Karmen Mccormick EGFR-AF UGANDAN >60 Normal >=60 [facility] Comment on above: Performed By: #### C BC #### [facility] [address] [place] [address] Dr. Karmen Mccormick EGFR-NON AF UGANDAN >60 Normal >=60 [facility] Comment on above: Performed By: #### C BC #### [facility] [address] [address] [address] Karmen Mccormick Glucose [Mass/Vol] 175 mg/dL Critically high 74-[address] [facility] Comment on above: Performed By: #### C BC #### [facility] [address] [address] [address] Karmen Mccormick Potassium [Moles/Vol] 4.9 mmol/L Normal 3.5-5.1 [facility] Comment on above: Performed By: #### C BC #### [facility] [address] [place] [address] Dr. Karmen Mccormick Sodium [Moles/Vol] 136 mmol/L Normal 136-145 [facility] Comment on above: Performed By: #### C BC #### [facility] [address] [place] [address] Dr. Karmen Mccormick Urea nitrogen [Mass/Vol] 25.0 mg/dL Critically high 7.0-18.0 [facility] Comment on above: Performed By: #### C BC #### [facility] [address] [place] [address] Dr. Karmen Mccormick Urea nitrogen/Creatinine [Mass ratio] 30.5 mg/mg Normal [facility] Comment on above: Performed By: #### C BC #### [facility] [address] [place] [address] Dr. Karmen Mccormick UA RANDOM W/MICROSCOPICon BACTERIA SMALL Abnormal NONE SEEN [facility] Comment on above: Performed By: #### B MP #### [facility] [address] [place] [address] Dr. Karmen Mccormick Bilirubin Ql (U) Negative Normal NEGATIVE [facility] Comment on above: Performed By: #### B MP #### [facility] [address] [place] [address] Dr. Karmen Mccormick CAST NONE SEEN Normal NONE SEEN [facility] Comment on above: Performed By: #### B MP #### [facility] [address] [place] [address] Dr. Karmen Mccormick Clarity (U) CLEAR Normal CLEAR [facility] Comment on above: Performed By: #### B MP #### [facility] [address] [place] [address] Dr. Karmen Mccormick Color (U) LT. YELLOW Normal YELLOW [facility] Comment on above: Performed By: #### B MP #### [facility] [address] [place] [address] Dr. Karmen Mccormick Crystals LM Nom (Urine sed) NONE SEEN Normal NONE SEEN [facility] Comment on above: Performed By: #### B MP #### [facility] [address] [address] [address] Karmen Mccormick Epithelial cells LM Ql (Urine sed) RARE Normal NONE SEEN /RARE [facility] Comment on above: Performed By: #### B MP #### [facility] [address] [place] [address] Dr. Karmen Mccormick Glucose Ql (U) >1000 Abnormal NEGATIVE [facility] Comment on above: Performed By: #### B MP #### [facility] [address] [place] [address] Dr. Karmen Mccormick Hemoglobin Ql (U) MODERATE Abnormal NEGATIVE [facility] Comment on above: Performed By: #### B MP #### [facility] [address] [place] [address] Dr. Karmen Mccormick Ketones Ql (U) Negative Normal NEGATIVE [facility] Comment on above: Performed By: #### B MP #### [facility] [address] [place] [address] Dr. Karmen Mccormick LEUKOCYTES TRACE Abnormal NEGATIVE [facility] Comment on above: Performed By: #### B MP #### [facility] [address] [place] [address] Dr. Karmen Mccormick MUCOUS NONE SEEN Normal NONE SEEN [facility] Comment on above: Performed By: #### B MP #### [facility] [address] [place] [address] Dr. Karmen Mccormick Nitrite Ql (U) Positive Abnormal NEGATIVE [facility] Comment on above: Performed By: #### B MP #### [facility] [address] [place] [address] Dr. Karmen Mccormick pH (U) 6.0 [pH] Normal 5-9 [facility] Comment on above: Performed By: #### B MP #### [facility] [address] [place] [address] Dr. Karmen Mccormick RBC 10-20 Abnormal 0-2 [facility] Comment on above: Performed By: #### B MP #### [facility] [address] [place] [address] Dr. Karmen Mccormick SPEC GRAVITY 1.020 Normal 1.005-<=1.025 [facility] Comment on above: Performed By: #### B MP #### [facility] [address] [place] [address] Dr. Karmen Mccormick UA PROTEIN TRACE Normal NEGATIVE/ TRACE [facility] Comment on above: Performed By: #### B MP #### [facility] [address] [address] [address] Karmen Mccormick Urobilinogen Qn (U) 0.2 {Rajeev'U}/dL Normal 0.2 - 1. 0 [facility] Comment on above: Performed By: #### B MP #### [facility] [address] [place] [address] Dr. Karmen Mccormick WBC 5-10 Abnormal NONE SEEN [facility] Comment on above: Performed By: #### B MP #### [facility] [address] [place] [address] Dr. Karmen Mccormick CBC AUTO DIFFon 05-07-2022 BASO # 0.1 103/ul Normal 0.0-0.1 [facility] Comment on above: Performed By: #### A CETON #### [facility] [address] [place] [address] Dr. Karmen Mccormick Basophils/100 WBC (Bld) 0.5 % Normal 0.2-2.[address] [facility] Comment on above: Performed By: #### A CETON #### [facility] [address] [place] [address] Dr. Karmen Mccormick EO # 0.2 103/ul Normal 0.0-0.7 [facility] Comment on above: Performed By: #### A CETON #### [facility] [address] [place] [address] Dr. Karmen Mccormick Eosinophils/100 WBC (Bld) 1.6 % Normal 0.9-7.0 [facility] Comment on above: Performed By: #### A CETON #### [facility] [address] [place] [address] Dr. Karmen Mccormick Erythrocyte distribution width (RBC) [Ratio] 13.4 % Normal 11.0-15.0 [facility] Comment on above: Performed By: #### A CETON #### [facility] [address] [address] [address] Karmen Mccormick Hematocrit (Bld) [Volume fraction] 38.0 % Normal 36.0-48.0 [facility] Comment on above: Performed By: #### A CETON #### [facility] [address] [address] [address] Karmen Mccormick Hemoglobin (Bld) [Mass/Vol] 12.3 g/dL Normal 12.0-16.0 [facility] Comment on above: Performed By: #### A CETON #### [facility] [address] [address] [address] Karmen Mccormick IG # 0.06 10e3/ul Critically high 0.00-0.03 [facility] Comment on above: Performed By: #### A CETON #### [facility] [address] [address] [address] Karmen Mccormick IG % 0.5 % Normal 0.0-0.5 [facility] Comment on above: Performed By: #### A CETON #### [facility] [address] [address] [address] Karmen Mccormick LYMPH # 1.5 103/ul Normal 1.2-3.8 [facility] Comment on above: Performed By: #### A CETON #### [facility] [address] [place] [address] Dr. Karmen Mccormick Lymphocytes/100 WBC (Bld) 12.0 % Critically low 20.5-60.0 [facility] Comment on above: Performed By: #### A CETON #### [facility] [address] [address] [address] Karmen Mccormick MANUAL DIFF REQ NO Normal [facility] Comment on above: Performed By: #### A CETON #### [facility] [address] [place] [address] Dr. Karmen Mccormick MCH (RBC) [Entitic mass] 29.6 pg Normal 26.7-34.0 [facility] Comment on above: Performed By: #### A CETON #### [facility] [address] [address] [address] Karmen Mccormick MCHC (RBC) [Mass/Vol] 32.4 g/dL Normal 29.9-35.2 [facility] Comment on above: Performed By: #### A CETON #### [facility] [address] [address] [address] Karmen Mccormick MCV (RBC) [Entitic vol] 91.6 fL Normal 81.0-99.[address] [facility] Comment on above: Performed By: #### A CETON #### [facility] [address] [address] [address] Karmen Mccormick MONO # 0.7 103/ul Normal 0.3-0.8 [facility] Comment on above: Performed By: #### A CETON #### [facility] [address] [place] [address] Dr. Karmen Mccormick Monocytes/100 WBC (Bld) 5.1 % Normal 1.7-12.[address] [facility] Comment on above: Performed By: #### A CETON #### [facility] [address] [place] [address] Dr. Karmen Mccormick NEUT # 10.3 103/ul Critically high 1.4-6.5 [facility] Comment on above: Performed By: #### A CETON #### [facility] [address] [place] [address] Dr. Karmen Mccormick Neutrophils/100 WBC (Bld) 80.3 % Critically high 43.0-75.0 [facility] Comment on above: Performed By: #### A CETON #### [facility] [address] [address] [address] Karmen Mccormick Platelet mean volume (Bld) [Entitic vol] 10.0 fL Normal 9.5-13.5 [facility] Comment on above: Performed By: #### A CETON #### [facility] [address] [address] [address] Karmen Mccormick PLT 280 103/ul Normal 150-450 [facility] Comment on above: Performed By: #### A CETON #### [facility] [address] [place], [place] [address] Dr. Karmen Mccormick RBC 4.15 106/ul Critically low 4.20-5.40 [facility] Comment on above: Performed By: #### A CETON #### [facility] [address] [place], [place] [address] Dr. Karmen Mccormick WBC 12.8 103/ul Critically high 4.0-11.0 [facility] Comment on above: Performed By: #### A CETON #### [facility] [address] [place], [place] [address] CSPINE WO CONon [...] TEJAS CHRISTOPHER Date: 2022-05-07 14:44 Normal [facility] CT HEAD WO CONon 05-07-2022 CT HEAD [...] TEJAS CHRISTOPHER Date: 2022-05-07 14:35 Normal [facility] Covid-19 PCR (CVDTBH)on 04-14 SARS-CoV-2 (COVID-19) RNA IRVIN+probe Ql (Unsp spec) Not detected Normal NOT DETECTED [facility] Comment on above: Result Comment: When diagnostic [...] for this test is supported by the [employer]er of [employer] and Human Service's declaration that [...] used). Performed By: #### A CETON #### [facility] [address] [place] [address] Dr. Karmen Mccormick POINT OF CARE GLUCOSEon 04-14 Glucose [Mass/Vol] 167 mg/dL Critically high 74-[address] [facility] Comment on above: Performed By: #### C VDTBH #### [facility] [address] [place] [address] Dr. Karmen Mccormick Glucose [Mass/Vol] 207 mg/dL Critically high 74-[address] [facility] Comment on above: Performed By: #### B MP #### [facility] [address] [place] [address] Dr. Karmen Mccormick PROF CHEM 8 (BAS METB)on Anion gap [Moles/Vol] 12.7 mmol/L Normal [facility] Comment on above: Performed By: #### P OCGLUC #### [facility] [address] [place] [address] Dr. Karmen Mccormick Calcium [Mass/Vol] 8.9 mg/dL Normal 8.5-10.1 [facility] Comment on above: Performed By: #### P OCGLUC #### [facility] [address] [place] [address] Dr. Karmen Mccormick Chloride [Moles/Vol] 104 mmol/L Normal 98-107 [facility] Comment on above: Performed By: #### P OCGLUC #### [facility] [address] [place] [address] Dr. Karmen Mccormick CO2 [Moles/Vol] 26.5 mmol/L Normal 21.0-32.0 [facility] Comment on above: Performed By: #### P OCGLUC #### [facility] [address] [place] [address] Dr. Karmen Mccormick Creatinine [Mass/Vol] 0.95 mg/dL Normal 0.55-1.02 [facility] Comment on above: Performed By: #### P OCGLUC #### [facility] [address] [place] [address] Dr. Karmen Mccormick EGFR-AF UGANDAN >60 Normal >=60 [facility] Comment on above: Performed By: #### P OCGLUC #### [facility] [address] [place] [address] Dr. Karmen Mccormick EGFR-NON AF UGANDAN 58 mL/min/1.73m2 Critically low >=60 [facility] Comment on above: Performed By: #### P OCGLUC #### [facility] [address] [address] [address] Karmen Mccormick Glucose [Mass/Vol] 245 mg/dL Critically high 74-106 [facility] Comment on above: Performed By: #### P OCGLUC #### [facility] [address] [address] [address] Karmen Mccormick Potassium [Moles/Vol] 5.2 mmol/L Critically high 3.5-5.1 [facility] Comment on above: Performed By: #### P OCGLUC #### [facility] [address] [address] [address] Karmen Mccormick Sodium [Moles/Vol] 138 mmol/L Normal 136-145 [facility] Comment on above: Performed By: #### P OCGLUC #### [facility] [address] [address] [address] Karmen Mccormick Urea nitrogen [Mass/Vol] 24.0 mg/dL Critically high 7.0-18.0 [facility] Comment on above: Performed By: #### P OCGLUC #### [facility] [address] [address] [address] Karmen Mccormick Urea nitrogen/Creatinine [Mass ratio] 25.3 mg/mg Normal [facility] Comment on above: Performed By: #### P OCGLUC #### [facility] [address] [address] [address] Karmen Mccormick GLYCOHEMOGLOBIN A1Con 2021 ADA RECOMMENDATION SEE BELOW Normal [facility] Comment on above: Result Comment: ADA RECOMMENDED LIMIT 4.0 - 6.0 ADA THERAPEUTIC TARGET < 7.0 ACTION SUGGESTED > 7.0 Performed By: #### P OCGLUC #### [facility] [address] [address] [address] Karmen Mccormick Glucose [Mass/Vol] 315 mg/dL Normal [facility] Comment on above: Performed By: #### P OCGLUC #### [facility] [address] [address] [address] Karmen Mccormick HbA1c (Bld) [Mass fraction] 12.6 % Critically high 4.5-6.2 [facility] Comment on above: Performed By: #### P OCGLUC #### [facility] [address] [address] [address] Karmen Mccormick PROF CHEM 8 (BAS METB)on Anion gap [Moles/Vol] 14.9 mmol/L Normal [facility] Comment on above: Performed By: #### P OCGLUC #### [facility] [address] [address] [address] Karmen Mccormick Calcium [Mass/Vol] 8.7 mg/dL Normal 8.5-10.1 [facility] Comment on above: Performed By: #### P OCGLUC #### [facility] [address] [address] [address] Karmen Mccormick Chloride [Moles/Vol] 102 mmol/L Normal 98-107 [facility] Comment on above: Performed By: #### P OCGLUC #### [facility] [address] [address] [address] Karmen Mccormick CO2 [Moles/Vol] 22.7 mmol/L Normal 21.0-32.0 [facility] Comment on above: Performed By: #### P OCGLUC #### [facility] [address] [address] [address] Karmen Mccormick Creatinine [Mass/Vol] 0.73 mg/dL Normal 0.55-1.02 [facility] Comment on above: Performed By: #### P OCGLUC #### [facility] [address] [address] [address] Karmen Mccormick EGFR-AF UGANDAN >60 Normal >=60 [facility] Comment on above: Performed By: #### P OCGLUC #### [facility] [address] [address] [address] Karmen Mccormick EGFR-NON AF UGANDAN >60 Normal >=60 [facility] Comment on above: Performed By: #### P OCGLUC #### [facility] [address] [address] [address] Karmen Mccormick Glucose [Mass/Vol] 290 mg/dL Critically high 74-[address] [facility] Comment on above: Performed By: #### P OCGLUC #### [facility] [address] [address] [address] Karmen Mccormick Potassium [Moles/Vol] 4.6 mmol/L Normal 3.5-5.1 [facility] Comment on above: Performed By: #### P OCGLUC #### [facility] [address] [address] [address] Karmen Mccormick Sodium [Moles/Vol] 135 mmol/L Critically low 136-145 [facility] Comment on above: Performed By: #### P OCGLUC #### [facility] [address] [place] [address] Dr. Karmen Mccormick Urea nitrogen [Mass/Vol] 17.0 mg/dL Normal 7.0-18.0 [facility] Comment on above: Performed By: #### P OCGLUC #### [facility] [address] [address] [address] Karmen Mccormick Urea nitrogen/Creatinine [Mass ratio] 23.3 mg/mg Normal [facility] Comment on above: Performed By: #### P OCGLUC #### [facility] [address] [place] [address] Dr. Karmen Mccormick CBC AUTO DIFFon 04-09-2022 BASO # 0.1 103/ul Normal 0.0-0.1 [facility] Comment on above: Performed By: #### P OCGLUC #### [facility] [address] [address] [address] Karmen Mccormick Basophils/100 WBC (Bld) 0.8 % Normal 0.2-2.[address] [facility] Comment on above: Performed By: #### P OCGLUC #### [facility] [address] [address] [address] Karmen Mccormick EO # 0.2 103/ul Normal 0.0-0.7 [facility] Comment on above: Performed By: #### P OCGLUC #### [facility] [address] [address] [address] Karmen Mccormick Eosinophils/100 WBC (Bld) 2.5 % Normal 0.9-7.0 [facility] Comment on above: Performed By: #### P OCGLUC #### [facility] [address] [place] [address] Dr. Karmen Mccormick Erythrocyte distribution width (RBC) [Ratio] 13.2 % Normal 11.0-15.0 [facility] Comment on above: Performed By: #### P OCGLUC #### [facility] [address] [place] [address] Dr. Karmen Mccormick Hematocrit (Bld) [Volume fraction] 33.9 % Critically low 36.0-48.0 [facility] Comment on above: Performed By: #### P OCGLUC #### [facility] [address] [place] [address] Dr. Karmen Mccormick Hemoglobin (Bld) [Mass/Vol] 11.5 g/dL Critically low 12.0-16.0 [facility] Comment on above: Performed By: #### P OCGLUC #### [facility] [address] [place] [address] Dr. Karmen Mccormick IG # 0.04 10e3/ul Critically high 0.00-0.03 [facility] Comment on above: Performed By: #### P OCGLUC #### [facility] [address] [place] [address] Dr. Karmen Mccormick IG % 0.5 % Normal 0.0-0.5 [facility] Comment on above: Performed By: #### P OCGLUC #### [facility] [address] [place] [address] Dr. Karmen Mccormick LYMPH # 1.8 103/ul Normal 1.2-3.8 [facility] Comment on above: Performed By: #### P OCGLUC #### [facility] [address] [place] [address] Dr. Karmen Mccormick Lymphocytes/100 WBC (Bld) 20.2 % Critically low 20.5-60.0 [facility] Comment on above: Performed By: #### P OCGLUC #### [facility] [address] [address] [address] Karmen Mccormick MANUAL DIFF REQ NO Normal [facility] Comment on above: Performed By: #### P OCGLUC #### [facility] [address] [address] [address] Karmen Mccormick MCH (RBC) [Entitic mass] 29.3 pg Normal 26.7-34.0 [facility] Comment on above: Performed By: #### P OCGLUC #### [facility] [address] [address] [address] Karmen Mccormick MCHC (RBC) [Mass/Vol] 33.9 g/dL Normal 29.9-35.2 [facility] Comment on above: Performed By: #### P OCGLUC #### [facility] [address] [place] [address] Dr. Karmen Mccormick MCV (RBC) [Entitic vol] 86.3 fL Normal 81.0-99.[address] [facility] Comment on above: Performed By: #### P OCGLUC #### [facility] [address] [address] [address] Karmen Mccormick MONO # 0.5 103/ul Normal 0.3-0.8 [facility] Comment on above: Performed By: #### P OCGLUC #### [facility] [address] [place] [address] Dr. Karmen Mccormick Monocytes/100 WBC (Bld) 6.1 % Normal 1.7-12.[address] [facility] Comment on above: Performed By: #### P OCGLUC #### [facility] [address] [address] [address] Karmen Mccormick NEUT # 6.1 103/ul Normal 1.4-6.5 [facility] Comment on above: Performed By: #### P OCGLUC #### [facility] [address] [place] [address] Dr. Karmen Mccormick Neutrophils/100 WBC (Bld) 69.9 % Normal 43.0-75.0 [facility] Comment on above: Performed By: #### P OCGLUC #### [facility] [address] [address] [address] Karmen Mccormick Platelet mean volume (Bld) [Entitic vol] 9.5 fL Normal 9.5-13.5 [facility] Comment on above: Performed By: #### P OCGLUC #### [facility] [address] [address] [address] Karmen Mccormick PLT 335 103/ul Normal 150-450 [facility] Comment on above: Performed By: #### P OCGLUC #### [facility] [address] [address] [address] Karmen Mccormick RBC 3.93 106/ul Critically low 4.20-5.40 [facility] Comment on above: Performed By: #### P OCGLUC #### [facility] [address] [address] [address] Karmen Mccormick WBC 8.8 103/ul Normal 4.0-11.0 [facility] Comment on above: Performed By: #### P OCGLUC #### [facility] [address] [address] [address] Karmen Mccormick CRPon 04-09-2022 CRP [Mass/Vol] mg/L Normal <=1.0 [facility] Comment on above: Performed By: #### P OCGLUC #### [facility] [address] [address] [address] Karmen Mccormick PROF 14(COMP METB)on 022 Albumin [Mass/Vol] 3.1 g/dL Critically low 3.4-5.0 [facility] Comment on above: Performed By: #### P OCGLUC #### [facility] [address] [address] [address] Karmen Mccormick Albumin/Globulin [Mass ratio] 0.9 {ratio} Normal [facility] Comment on above: Performed By: #### P OCGLUC #### [facility] [address] [address] [address] Karmen Mccormick ALP [Catalytic activity/Vol] 86 U/L Normal 46-116 [facility] Comment on above: Performed By: #### P OCGLUC #### [facility] [address] [address] [address] Karmen Mccormick ALT [Catalytic activity/Vol] 23 U/L Normal 14-59 [facility] Comment on above: Performed By: #### P OCGLUC #### [facility] [address] [address] [address] Karmen Mccormick Anion gap [Moles/Vol] 14.5 mmol/L Normal [facility] Comment on above: Performed By: #### P OCGLUC #### [facility] [address] [address] [address] Karmen Mccormick AST [Catalytic activity/Vol] 11 U/L Critically low 15-37 [facility] Comment on above: Performed By: #### P OCGLUC #### [facility] [address] [address] [address] Karmen Mccormick Bilirubin [Mass/Vol] 0.3 mg/dL Normal 0.2-1.0 [facility] Comment on above: Performed By: #### P OCGLUC #### [facility] [address] [address] [address] Karmen Mccormick Calcium [Mass/Vol] 8.8 mg/dL Normal 8.5-10.1 [facility] Comment on above: Performed By: #### P OCGLUC #### [facility] [address] [address] [address] Karmen Mccormick Chloride [Moles/Vol] 96 mmol/L Critically low 98-107 [facility] Comment on above: Performed By: #### P OCGLUC #### [facility] [address] [address] [address] Karmen Mccormick CO2 [Moles/Vol] 24.5 mmol/L Normal 21.0-32.0 [facility] Comment on above: Performed By: #### P OCGLUC #### [facility] [address] [address] [address] Karmen Mccormick Creatinine [Mass/Vol] 0.88 mg/dL Normal 0.55-1.02 [facility] Comment on above: Performed By: #### P OCGLUC #### [facility] [address] [address] [address] Karmen Mccormick EGFR-AF UGANDAN >60 Normal >=60 [facility] Comment on above: Performed By: #### P OCGLUC #### [facility] [address] [address] [address] Karmen Mccormick EGFR-NON AF UGANDAN >60 Normal >=60 [facility] Comment on above: Performed By: #### P OCGLUC #### [facility] [address] [address] [address] Karmen Mccormick Globulin (S) [Mass/Vol] 3.6 g/dL Normal [facility] Comment on above: Performed By: #### P OCGLUC #### [facility] [address] [address] [address] Karmen Mccormick Glucose [Mass/Vol] 479 mg/dL Critically high 74-[address] [facility] Comment on above: Performed By: #### P OCGLUC #### [facility] [address] [address] [address] Karmen Mccormick Potassium [Moles/Vol] 5.0 mmol/L Normal 3.5-5.1 [facility] Comment on above: Performed By: #### P OCGLUC #### [facility] [address] [address] [address] Karmen Mccormick Protein [Mass/Vol] 6.7 g/dL Normal 6.4-8.2 [facility] Comment on above: Performed By: #### P OCGLUC #### [facility] [address] [address] [address] Karmen Mccormick Sodium [Moles/Vol] 130 mmol/L Critically low 136-145 [facility] Comment on above: Performed By: #### P OCGLUC #### [facility] [address] [address] [address] Karmen Mccormick Urea nitrogen [Mass/Vol] 18.0 mg/dL Normal 7.0-18.0 [facility] Comment on above: Performed By: #### P OCGLUC #### [facility] [address] [address] [address] Karmen Mccormick Urea nitrogen/Creatinine [Mass ratio] 20.5 mg/mg Normal [facility] Comment on above: Performed By: #### P OCGLUC #### [facility] [address] [address] [address] Karmen Mccormick SED RATE WESTERGRENon 2021 SED RATE 33 mm/hr Critically high <=30 [facility] Comment on above: Performed By: #### P OCGLUC #### [facility] [address] [place] [address] Dr. Karmen Mccormick CBC AUTO DIFFon 04-02-2022 BASO # 0.0 103/ul Normal 0.0-0.1 [facility] Comment on above: Performed By: #### P OCGLUC #### [facility] [address] [place] [address] Dr. Karmen Mccormick Basophils/100 WBC (Bld) 0.5 % Normal 0.2-2.[address] [facility] Comment on above: Performed By: #### P OCGLUC #### [facility] [address] [place] [address] Dr. Karmen Mccormick EO # 0.4 103/ul Normal 0.0-0.7 [facility] Comment on above: Performed By: #### P OCGLUC #### [facility] [address] [place] [address] Dr. Karmen Mccormick Eosinophils/100 WBC (Bld) 4.4 % Normal 0.9-7.0 [facility] Comment on above: Performed By: #### P OCGLUC #### [facility] [address] [place] [address] Dr. Karmen Mccormick Erythrocyte distribution width (RBC) [Ratio] 13.2 % Normal 11.0-15.0 [facility] Comment on above: Performed By: #### P OCGLUC #### [facility] [address] [place] [address] Dr. Karmen Mccormick Hematocrit (Bld) [Volume fraction] 32.4 % Critically low 36.0-48.0 [facility] Comment on above: Performed By: #### P OCGLUC #### [facility] [address] [address] [address] Karmen Mccormick Hemoglobin (Bld) [Mass/Vol] 10.3 g/dL Critically low 12.0-16.0 [facility] Comment on above: Performed By: #### P OCGLUC #### [facility] [address] [address] [address] Karmen Mccormick IG # 0.04 10e3/ul Critically high 0.00-0.03 [facility] Comment on above: Performed By: #### P OCGLUC #### [facility] [address] [address] [address] Karmen Mccormick IG % 0.5 % Normal 0.0-0.5 [facility] Comment on above: Performed By: #### P OCGLUC #### [facility] [address] [address] [address] Karmen Mccormick LYMPH # 1.9 103/ul Normal 1.2-3.8 [facility] Comment on above: Performed By: #### P OCGLUC #### [facility] [address] [address] [address] Karmen Mccormick Lymphocytes/100 WBC (Bld) 23.2 % Normal 20.5-60.0 [facility] Comment on above: Performed By: #### P OCGLUC #### [facility] [address] [address] [address] Karmen Mccormick MANUAL DIFF REQ NO Normal [facility] Comment on above: Performed By: #### P OCGLUC #### [facility] [address] [address] [address] Karmen Mccormick MCH (RBC) [Entitic mass] 29.0 pg Normal 26.7-34.0 [facility] Comment on above: Performed By: #### P OCGLUC #### [facility] [address] [place] [address] Dr. Karmen Mccormick MCHC (RBC) [Mass/Vol] 31.8 g/dL Normal 29.9-35.2 [facility] Comment on above: Performed By: #### P OCGLUC #### [facility] [address] [address] [address] Karmen Mccormick MCV (RBC) [Entitic vol] 91.3 fL Normal 81.0-99.[address] [facility] Comment on above: Performed By: #### P OCGLUC #### [facility] [address] [address] [address] Karmen Mccormick MONO # 0.6 103/ul Normal 0.3-0.8 [facility] Comment on above: Performed By: #### P OCGLUC #### [facility] [address] [place] [address] Dr. Karmen Mccormick Monocytes/100 WBC (Bld) 7.2 % Normal 1.7-12.[address] [facility] Comment on above: Performed By: #### P OCGLUC #### [facility] [address] [place] [address] Dr. Karmen Mccormick NEUT # 5.2 103/ul Normal 1.4-6.5 [facility] Comment on above: Performed By: #### P OCGLUC #### [facility] [address] [place] [address] Dr. Karmen Mccormick Neutrophils/100 WBC (Bld) 64.2 % Normal 43.0-75.0 [facility] Comment on above: Performed By: #### P OCGLUC #### [facility] [address] [place] [address] Dr. Karmen Mccormick Platelet mean volume (Bld) [Entitic vol] 9.3 fL Critically low 9.5-13.5 [facility] Comment on above: Performed By: #### P OCGLUC #### [facility] [address] [place] [address] Dr. Karmen Mccormick PLT 236 103/ul Normal 150-450 [facility] Comment on above: Performed By: #### P OCGLUC #### [facility] [address] [place] [address] Dr. Karmen Mccormick RBC 3.55 106/ul Critically low 4.20-5.40 [facility] Comment on above: Performed By: #### P OCGLUC #### [facility] [address] [address] [address] Karmen Mccormick WBC 8.2 103/ul Normal 4.0-11.0 [facility] Comment on above: Performed By: #### P OCGLUC #### [facility] [address] [address] [address] Karmen Mccormick PROF 14(COMP METB)on 022 Albumin [Mass/Vol] 2.2 g/dL Critically low 3.4-5.0 Th [facility] Comment on above: Performed By: #### P OCGLUC #### [facility] [address] [address] [address] Karmen Mccormick Albumin/Globulin [Mass ratio] 0.7 {ratio} Normal [facility] Comment on above: Performed By: #### P OCGLUC #### [facility] [address] [address] [address] Karmen Mccormick ALP [Catalytic activity/Vol] 71 U/L Normal 46-116 [facility] Comment on above: Performed By: #### P OCGLUC #### [facility] [address] [address] [address] Karmen Mccormick ALT [Catalytic activity/Vol] 12 U/L Critically low 14-59 [facility] Comment on above: Performed By: #### P OCGLUC #### [facility] [address] [address] [address] Karmen Mccormick Anion gap [Moles/Vol] 8.7 mmol/L Normal [facility] Comment on above: Performed By: #### P OCGLUC #### [facility] [address] [address] [address] Karmen Mccormick AST [Catalytic activity/Vol] 15 U/L Normal 15-37 [facility] Comment on above: Performed By: #### P OCGLUC #### [facility] [address] [place] [address] Dr. Karmen Mccormick Bilirubin [Mass/Vol] 0.2 mg/dL Normal 0.2-1.0 [facility] Comment on above: Performed By: #### P OCGLUC #### [facility] [address] [address] [address] Karmen Mccormick Calcium [Mass/Vol] 8.2 mg/dL Critically low 8.5-10.1 Th [facility] Comment on above: Performed By: #### P OCGLUC #### [facility] [address] [address] [address] Karmen Mccormick Chloride [Moles/Vol] 107 mmol/L Normal 98-107 [facility] Comment on above: Performed By: #### P OCGLUC #### [facility] [address] [address] [address] Karmen Mccormick CO2 [Moles/Vol] 24.6 mmol/L Normal 21.0-32.0 [facility] Comment on above: Performed By: #### P OCGLUC #### [facility] [address] [address] [address] Karmen Mccormick Creatinine [Mass/Vol] 0.62 mg/dL Normal 0.55-1.02 [facility] Comment on above: Performed By: #### P OCGLUC #### [facility] [address] [address] [address] Karmen Mccormick EGFR-AF UGANDAN >60 Normal >=60 [facility] Comment on above: Performed By: #### P OCGLUC #### [facility] [address] [address] [address] Karmen Mccormick EGFR-NON AF UGANDAN >60 Normal >=60 [facility] Comment on above: Performed By: #### P OCGLUC #### [facility] [address] [address] [address] Karmen Mccormick Globulin (S) [Mass/Vol] 3.0 g/dL Normal [facility] Comment on above: Performed By: #### P OCGLUC #### [facility] [address] [address] [address] Karemn Mccormick Glucose [Mass/Vol] 263 mg/dL Critically high 74-[address] [facility] Comment on above: Performed By: #### P OCGLUC #### [facility] [address] [address] [address] Karmen Mccormick Potassium [Moles/Vol] 3.3 mmol/L Critically low 3.5-5.1 [facility] Comment on above: Performed By: #### P OCGLUC #### [facility] [address] [place] [address] Dr. Karmen Mccormick Protein [Mass/Vol] 5.2 g/dL Critically low 6.4-8.2 Th [facility] Comment on above: Performed By: #### P OCGLUC #### [facility] [address] [place] [address] Dr. Karmen Mccormick Sodium [Moles/Vol] 137 mmol/L Normal 136-145 [facility] Comment on above: Performed By: #### P OCGLUC #### [facility] [address] [place] [address] Dr. Karmen Mccormick Urea nitrogen [Mass/Vol] 10.0 mg/dL Normal 7.0-18.0 [facility] Comment on above: Performed By: #### P OCGLUC #### [facility] [address] [place] [address] Dr. Karmen Mccormick Urea nitrogen/Creatinine [Mass ratio] 16.1 mg/mg Normal [facility] Comment on above: Performed By: #### P OCGLUC #### [facility] [address] [place] [address] Dr. Karmen Mccormick CBC AUTO DIFFon 04-01-2022 BASO # 0.0 103/ul Normal 0.0-0.1 [facility] Comment on above: Performed By: #### B MP #### [facility] [address] [place] [address] Dr. Karmen Mccormick Basophils/100 WBC (Bld) 0.4 % Normal 0.2-2.[address] [facility] Comment on above: Performed By: #### B MP #### [facility] [address] [place] [address] Dr. Karmen Mccormick EO # 0.3 103/ul Normal 0.0-0.7 [facility] Comment on above: Performed By: #### B MP #### [facility] [address] [place] [address] Dr. Karmen Mccormick Eosinophils/100 WBC (Bld) 3.9 % Normal 0.9-7.0 [facility] Comment on above: Performed By: #### B MP #### [facility] [address] [place] [address] Dr. Karmen Mccormick Erythrocyte distribution width (RBC) [Ratio] 13.4 % Normal 11.0-15.0 [facility] Comment on above: Performed By: #### B MP #### [facility] [address] [place] [address] Dr. Karmen Mccormick Hematocrit (Bld) [Volume fraction] 33.3 % Critically low 36.0-48.0 [facility] Comment on above: Performed By: #### B MP #### [facility] [address] [place] [address] Dr. Karmen Mccormick Hemoglobin (Bld) [Mass/Vol] 11.1 g/dL Critically low 12.0-16.0 [facility] Comment on above: Performed By: #### B MP #### [facility] [address] [place] [address] Dr. Karmen Mccormick IG # 0.04 10e3/ul Critically high 0.00-0.03 [facility] Comment on above: Performed By: #### B MP #### [facility] [address] [place] [address] Dr. Karmen Mccormick IG % 0.5 % Normal 0.0-0.5 [facility] Comment on above: Performed By: #### B MP #### [facility] [address] [place] [address] Dr. Karmen Mccormick LYMPH # 2.5 103/ul Normal 1.2-3.8 [facility] Comment on above: Performed By: #### B MP #### [facility] [address] [place] [address] Dr. Karmen Mccormick Lymphocytes/100 WBC (Bld) 33.2 % Normal 20.5-60.0 [facility] Comment on above: Performed By: #### B MP #### [facility] [address] [place] [address] Dr. Karmen Mccormick MANUAL DIFF REQ NO Normal [facility] Comment on above: Performed By: #### B MP #### [facility] [address] [place] [address] Dr. Karmen Mccormick MCH (RBC) [Entitic mass] 29.4 pg Normal 26.7-34.0 [facility] Comment on above: Performed By: #### B MP #### [facility] [address] [place] [address] Dr. Karmen Mccormick MCHC (RBC) [Mass/Vol] 33.3 g/dL Normal 29.9-35.2 [facility] Comment on above: Performed By: #### B MP #### [facility] [address] [place] [address] Dr. Karmen Mccormick MCV (RBC) [Entitic vol] 88.3 fL Normal 81.0-99.[address] [facility] Comment on above: Performed By: #### B MP #### [facility] [address] [place] [address] Dr. Karmen Mccormick MONO # 0.6 103/ul Normal 0.3-0.8 [facility] Comment on above: Performed By: #### B MP #### [facility] [address] [place] [address] Dr. Karmen Mccormick Monocytes/100 WBC (Bld) 8.3 % Normal 1.7-12.[address] [facility] Comment on above: Performed By: #### B MP #### [facility] [address] [place] [address] Dr. Karmen Mccormick NEUT # 4.0 103/ul Normal 1.4-6.5 [facility] Comment on above: Performed By: #### B MP #### [facility] [address] [place] [address] Dr. Karmen Mccormick Neutrophils/100 WBC (Bld) 53.7 % Normal 43.0-75.0 [facility] Comment on above: Performed By: #### B MP #### [facility] [address] [address] [address] Karmen Mccormick Platelet mean volume (Bld) [Entitic vol] 10.1 fL Normal 9.5-13.5 [facility] Comment on above: Performed By: #### B MP #### [facility] [address] [address] [address] Karmen Mccormick PLT 222 103/ul Normal 150-450 [facility] Comment on above: Performed By: #### B MP #### [facility] [address] [address] [address] Karmen Mccormick RBC 3.77 106/ul Critically low 4.20-5.40 [facility] Comment on above: Performed By: #### B MP #### [facility] [address] [place] [address] Dr. Karmen Mccormick WBC 7.5 103/ul Normal 4.0-11.0 [facility] Comment on above: Performed By: #### B MP #### [facility] [address] [place] [address] Dr. Karmen Mccormick H PYLORI ANTIBODY IGGon 03-14 H. PYLORI IGG ABS 0.22 Index Value Normal 0.00-0.[address] [facility] Comment on above: Result Comment: Nega tive <0.80 Equivocal 0.80 - 0.89 Positive >0.89 Performed By: #### P OCGLUC #### [facility] [address] [place] [address] Dr. Karmen Mccormick POINT OF CARE GLUCOSEon 03-14 Glucose [Mass/Vol] 187 mg/dL Critically high 74-[address] [facility] Comment on above: Performed By: #### P OCGLUC #### [facility] [address] [place] [address] Dr. Karmen Mccormick Glucose [Mass/Vol] 200 mg/dL Critically high 74-[address] [facility] Comment on above: Performed By: #### P OCGLUC #### [facility] [address] [place] [address] Dr. Karmen Mccormick Glucose [Mass/Vol] 173 mg/dL Critically high 74-106 [facility] Comment on above: Performed By: #### P OCGLUC #### [facility] [address] [place] [address] Dr. Karmen Mccormick PROF 14(COMP METB)on 022 Albumin [Mass/Vol] 2.1 g/dL Critically low 3.4-5.0 [facility] Comment on above: Performed By: #### P OCGLUC #### [facility] [address] [place] [address] Dr. Karmen Mccormick Albumin/Globulin [Mass ratio] 0.7 {ratio} Normal [facility] Comment on above: Performed By: #### P OCGLUC #### [facility] [address] [place] [address] Dr. Karmen Mccormick ALP [Catalytic activity/Vol] 70 U/L Normal 46-116 [facility] Comment on above: Performed By: #### P OCGLUC #### [facility] [address] [place] [address] Dr. Karmen Mccormick ALT [Catalytic activity/Vol] 14 U/L Normal 14-59 [facility] Comment on above: Performed By: #### P OCGLUC #### [facility] [address] [place] [address] Dr. Karmen Mccormick Anion gap [Moles/Vol] 12.9 mmol/L Normal [facility] Comment on above: Performed By: #### P OCGLUC #### [facility] [address] [place] [address] Dr. Karmen Mccormick AST [Catalytic activity/Vol] 23 U/L Normal 15-37 [facility] Comment on above: Performed By: #### P OCGLUC #### [facility] [address] [place] [address] Dr. Karmen Mccormick Bilirubin [Mass/Vol] 0.4 mg/dL Normal 0.2-1.0 [facility] Comment on above: Performed By: #### P OCGLUC #### [facility] [address] [place] [address] Dr. Karmen Mccormick Calcium [Mass/Vol] 8.1 mg/dL Critically low 8.5-10.1 Th [facility] Comment on above: Performed By: #### P OCGLUC #### [facility] [address] [address] [address] Karmen Mccormick Chloride [Moles/Vol] 107 mmol/L Normal 98-107 [facility] Comment on above: Performed By: #### P OCGLUC #### [facility] [address] [address] [address] Karmen Mccormick CO2 [Moles/Vol] 20.8 mmol/L Critically low 21.0-32.0 [facility] Comment on above: Performed By: #### P OCGLUC #### [facility] [address] [place] [address] Dr. Karmen Mccormick Creatinine [Mass/Vol] 0.79 mg/dL Normal 0.55-1.02 [facility] Comment on above: Performed By: #### P OCGLUC #### [facility] [address] [address] [address] Karmen Mccormick EGFR-AF UGANDAN >60 Normal >=60 [facility] Comment on above: Performed By: #### P OCGLUC #### [facility] [address] [place] [address] Dr. Karmen Mccormick EGFR-NON AF UGANDAN >60 Normal >=60 [facility] Comment on above: Performed By: #### P OCGLUC #### [facility] [address] [address] [address] Karmen Mccormick Globulin (S) [Mass/Vol] 3.1 g/dL Normal [facility] Comment on above: Performed By: #### P OCGLUC #### [facility] [address] [address] [address] Karmen Mccormick Glucose [Mass/Vol] 226 mg/dL Critically high 74-[address] [facility] Comment on above: Performed By: #### P OCGLUC #### [facility] [address] [place] [address] Dr. Karmen Mccormick Potassium [Moles/Vol] 3.7 mmol/L Normal 3.5-5.1 [facility] Comment on above: Performed By: #### P OCGLUC #### [facility] [address] [address] [address] Karmen Mccormick Protein [Mass/Vol] 5.2 g/dL Critically low 6.4-8.2 Th [facility] Comment on above: Performed By: #### P OCGLUC #### [facility] [address] [address] [address] Karmen Mccormick Sodium [Moles/Vol] 137 mmol/L Normal 136-145 [facility] Comment on above: Performed By: #### P OCGLUC #### [facility] [address] [address] [address] Karmen Mccormick Urea nitrogen [Mass/Vol] 9.0 mg/dL Normal 7.0-18.0 [facility] Comment on above: Performed By: #### P OCGLUC #### [facility] [address] [place] [address] Dr. Karmen Mccormick Urea nitrogen/Creatinine [Mass ratio] 11.4 mg/mg Normal [facility] Comment on above: Performed By: #### P OCGLUC #### [facility] [address] [place] [address] Dr. Karmen Mccormick WOUND CULTUREon 04-01-2022 Antimicrobial Susceptibility Comment Normal [facility] Comment on above: Result Comment: S = Susceptible; I = Intermediate; R = Resistant P = Positive; N = Negative MICS are expressed in micrograms per mL Antibiotic RSLT#1 RSLT#2 RSLT#3 RSLT#4 Ciprofloxacin R Clindamycin S Erythromycin R Gentamicin S Levofloxacin I Linezolid S Oxacillin R Penicillin R Rifampin S Tetracycline S Trimethoprim/Sulfa S Vancomycin S Performed By: #### C BC #### [facility] [address] [place] [address] Dr. Karmen Mccormick Bacteria identified Aer cx Nom (Unsp spec) Final report Abnormal [facility] Comment on above: Performed By: #### C BC #### [facility] [address] [place] [address] Dr. Karmen Mccormick Result 1 Comment Abnormal [facility] Comment on above: Result Comment: Meth icillin - resistant Staphylococcus aureus Based on resistance to oxacillin this isolate would be resistant to all currently available beta-lactam antimicrobial agents, with the exception of the newer cephalosporins with anti-MRSA activity, such as Ceftaroline Heavy growth Performed By: #### C BC #### [facility] [address] [place] [address] Dr. Karmen Mccormick Result 2 Mixed skin alexis Normal [facility] Comment on above: Result Comment: [place] y growth Performed By: #### C BC #### [facility] [address] [place] [address] Dr. Karmen Mccormick CBC AUTO DIFFon 03-31-2022 BASO # 0.0 103/ul Normal 0.0-0.1 [facility] Comment on above: Performed By: #### P OCGLUC #### [facility] [address] [place] [address] Dr. Karmen Mccormick Basophils/100 WBC (Bld) 0.4 % Normal 0.2-2.[address] [facility] Comment on above: Performed By: #### P OCGLUC #### [facility] [address] [place] [address] Dr. Karmen Mccormick EO # 0.2 103/ul Normal 0.0-0.7 [facility] Comment on above: Performed By: #### P OCGLUC #### [facility] [address] [place] [address] Dr. Karmen Mccormick Eosinophils/100 WBC (Bld) 2.4 % Normal 0.9-7.0 [facility] Comment on above: Performed By: #### P OCGLUC #### [facility] [address] [place] [address] Dr. Karmen Mccormick Erythrocyte distribution width (RBC) [Ratio] 13.2 % Normal 11.0-15.0 [facility] Comment on above: Performed By: #### P OCGLUC #### [facility] [address] [place] [address] Dr. Karmen Mccormick Hematocrit (Bld) [Volume fraction] 39.1 % Normal 36.0-48.0 [facility] Comment on above: Performed By: #### P OCGLUC #### [facility] [address] [address] [address] Karmen Mccormick Hemoglobin (Bld) [Mass/Vol] 12.7 g/dL Normal 12.0-16.0 [facility] Comment on above: Performed By: #### P OCGLUC #### [facility] [address] [address] [address] Karmen Mccormick IG # 0.04 10e3/ul Critically high 0.00-0.03 [facility] Comment on above: Performed By: #### P OCGLUC #### [facility] [address] [address] [address] Karmen Mccormick IG % 0.4 % Normal 0.0-0.5 [facility] Comment on above: Performed By: #### P OCGLUC #### [facility] [address] [place] [address] Dr. Karmen Mccormick LYMPH # 3.1 103/ul Normal 1.2-3.8 [facility] Comment on above: Performed By: #### P OCGLUC #### [facility] [address] [address] [address] Karmen Mccormick Lymphocytes/100 WBC (Bld) 32.3 % Normal 20.5-60.0 [facility] Comment on above: Performed By: #### P OCGLUC #### [facility] [address] [place] [address] Dr. Karmen Mccormick MANUAL DIFF REQ NO Normal [facility] Comment on above: Performed By: #### P OCGLUC #### [facility] [address] [address] [address] Karmen Mccormick MCH (RBC) [Entitic mass] 29.3 pg Normal 26.7-34.0 [facility] Comment on above: Performed By: #### P OCGLUC #### [facility] [address] [address] [address] Karmen Mccormick MCHC (RBC) [Mass/Vol] 32.5 g/dL Normal 29.9-35.2 [facility] Comment on above: Performed By: #### P OCGLUC #### [facility] [address] [address] [address] Karmen Mccormick MCV (RBC) [Entitic vol] 90.3 fL Normal 81.0-99.[address] [facility] Comment on above: Performed By: #### P OCGLUC #### [facility] [address] [address] [address] Karmen Mccormick MONO # 0.9 103/ul Critically high 0.3-0.8 [facility] Comment on above: Performed By: #### P OCGLUC #### [facility] [address] [place] [address] Dr. Karmen Mccormick Monocytes/100 WBC (Bld) 8.9 % Normal 1.7-12.[address] [facility] Comment on above: Performed By: #### P OCGLUC #### [facility] [address] [place] [address] Dr. Karmen Mccormick NEUT # 5.3 103/ul Normal 1.4-6.5 [facility] Comment on above: Performed By: #### P OCGLUC #### [facility] [address] [place] [address] Dr. Karmen Mccormick Neutrophils/100 WBC (Bld) 55.6 % Normal 43.0-75.0 [facility] Comment on above: Performed By: #### P OCGLUC #### [facility] [address] [place] [address] Dr. Karmen Mccormick Platelet mean volume (Bld) [Entitic vol] 10.0 fL Normal 9.5-13.5 [facility] Comment on above: Performed By: #### P OCGLUC #### [facility] [address] [place] [address] Dr. Karmen Mccormick PLT 278 103/ul Normal 150-450 [facility] Comment on above: Performed By: #### P OCGLUC #### [facility] [address] [place] [address] Dr. Karmen Mccormick RBC 4.33 106/ul Normal 4.20-5.40 [facility] Comment on above: Performed By: #### P OCGLUC #### [facility] [address] [address] [address] Karmen Mccormick WBC 9.5 103/ul Normal 4.0-11.0 [facility] Comment on above: Performed By: #### P OCGLUC #### [facility] [address] [address] [address] Karmen Mccormick POINT OF CARE GLUCOSEon 03-13 Glucose [Mass/Vol] 130 mg/dL Critically high [address] [place] [address] Comment on above: Performed By: #### P OCGLUC #### [facility] [address] [address] [address] Karmen Mccormick Glucose [Mass/Vol] 153 mg/dL Critically high [address] [place] [address] Comment on above: Performed By: #### A CETON #### [facility] [address] [address] [address] Karmen Mccormick Glucose [Mass/Vol] 195 mg/dL Critically high [address] [place] [address] Comment on above: Performed By: #### B MP #### [facility] [address] [address] [address] Karmen Mccormick Glucose [Mass/Vol] 163 mg/dL Critically high [address] [place] [address] Comment on above: Performed By: #### A CETON #### [facility] [address] [address] [address] Karmen Mccormick Glucose [Mass/Vol] 88 mg/dL Normal 74-106 [facility] Comment on above: Performed By: #### B MP #### [facility] [address] [address] [address] Karmen Mccormick Glucose [Mass/Vol] 145 mg/dL Critically high [address] [place] [address] Comment on above: Performed By: #### A CETON #### [facility] [address] [address] [address] Karmen Mccormick Glucose [Mass/Vol] 117 mg/dL Critically high [address] [place] [address] Comment on above: Performed By: #### C BC #### [facility] [address] [address] [address] Karmen Mccormick Glucose [Mass/Vol] 146 mg/dL Critically high 74-[address] [facility] Comment on above: Performed By: #### C VDTBH #### [facility] [address] [place] [address] Dr. Karmen Mccormick PROF 14(COMP METB)on 022 Albumin [Mass/Vol] 2.4 g/dL Critically low 3.4-5.0 [facility] Comment on above: Performed By: #### P OCGLUC #### [facility] [address] [place] [address] Dr. Karmen Mccormick Albumin/Globulin [Mass ratio] 0.7 {ratio} Normal [facility] Comment on above: Performed By: #### P OCGLUC #### [facility] [address] [place] [address] Dr. Karmen Mccormick ALP [Catalytic activity/Vol] 83 U/L Normal 46-116 [facility] Comment on above: Performed By: #### P OCGLUC #### [facility] [address] [place] [address] Dr. Karmen Mccormick ALT [Catalytic activity/Vol] 14 U/L Normal 14-59 [facility] Comment on above: Performed By: #### P OCGLUC #### [facility] [address] [place] [address] Dr. Karmen Mccormick Anion gap [Moles/Vol] 12.2 mmol/L Normal [facility] Comment on above: Performed By: #### P OCGLUC #### [facility] [address] [place] [address] Dr. Karmen Mccormick AST [Catalytic activity/Vol] 20 U/L Normal 15-37 [facility] Comment on above: Performed By: #### P OCGLUC #### [facility] [address] [place] [address] Dr. Karmen Mccormick Bilirubin [Mass/Vol] 0.4 mg/dL Normal 0.2-1.0 [facility] Comment on above: Performed By: #### P OCGLUC #### [facility] [address] [address] [address] Karmen Mccormick Calcium [Mass/Vol] 8.4 mg/dL Critically low 8.5-10.1 Th [facility] Comment on above: Performed By: #### P OCGLUC #### [facility] [address] [address] [address] Karmen Mccormick Chloride [Moles/Vol] 110 mmol/L Critically high 98-107 [facility] Comment on above: Performed By: #### P OCGLUC #### [facility] [address] [place] [address] Dr. Karmen Mccormick CO2 [Moles/Vol] 21.5 mmol/L Normal 21.0-32.0 [facility] Comment on above: Performed By: #### P OCGLUC #### [facility] [address] [place] [address] Dr. Karmen Mccormick Creatinine [Mass/Vol] 0.63 mg/dL Normal 0.55-1.02 [facility] Comment on above: Performed By: #### P OCGLUC #### [facility] [address] [address] [address] Karmen Mccormick EGFR-AF UGANDAN >60 Normal >=60 [facility] Comment on above: Performed By: #### P OCGLUC #### [facility] [address] [place] [address] Dr. Karmen Mccormick EGFR-NON AF UGANDAN >60 Normal >=60 [facility] Comment on above: Performed By: #### P OCGLUC #### [facility] [address] [address] [address] Karmen Mccormick Globulin (S) [Mass/Vol] 3.5 g/dL Normal [facility] Comment on above: Performed By: #### P OCGLUC #### [facility] [address] [place] [address] Dr. Karmen Mccormick Glucose [Mass/Vol] 121 mg/dL Critically high 74-[address] [facility] Comment on above: Performed By: #### P OCGLUC #### [facility] [address] [place] [address] Dr. Karmen Mccormick Potassium [Moles/Vol] 3.7 mmol/L Normal 3.5-5.1 [facility] Comment on above: Performed By: #### P OCGLUC #### [facility] [address] [address] [address] Karmen Mccormick Protein [Mass/Vol] 5.9 g/dL Critically low 6.4-8.2 Th e [facility] Comment on above: Performed By: #### P OCGLUC #### [facility] [address] [address] [address] Karmen Mccormick Sodium [Moles/Vol] 140 mmol/L Normal 136-145 [facility] Comment on above: Performed By: #### P OCGLUC #### [facility] [address] [address] [address] Karmen Mccormick Urea nitrogen [Mass/Vol] 10.0 mg/dL Normal 7.0-18.0 [facility] Comment on above: Performed By: #### P OCGLUC #### [facility] [address] [address] [address] Karmen Mccormick Urea nitrogen/Creatinine [Mass ratio] 15.9 mg/mg Normal [facility] Comment on above: Performed By: #### P OCGLUC #### [facility] [address] [address] [address] Karmen Mccormick XR ABD FLAT UP_PA [...] TEJAS CHRISTOPHER Date: 2022-03-31 13:12 Normal [facility] CBC AUTO DIFFon 03-30-2022 BASO # 0.0 103/ul Normal 0.0-0.1 [facility] Comment on above: Performed By: #### C BC #### [facility] [address] [address] [address] Karmen Mccormick Basophils/100 WBC (Bld) 0.4 % Normal 0.2-2.[address] [facility] Comment on above: Performed By: #### C BC #### [facility] [address] [place] [address] Dr. Karmen Mccormick EO # 0.1 103/ul Normal 0.0-0.7 [facility] Comment on above: Performed By: #### C BC #### [facility] [address] [place] [address] Dr. Karmen Mccormick Eosinophils/100 WBC (Bld) 1.5 % Normal 0.9-7.0 [facility] Comment on above: Performed By: #### C BC #### [facility] [address] [place] [address] Dr. Karmen Mccormick Erythrocyte distribution width (RBC) [Ratio] 13.6 % Normal 11.0-15.0 [facility] Comment on above: Performed By: #### C BC #### [facility] [address] [place] [address] Dr. Karmen Mccormick Hematocrit (Bld) [Volume fraction] 37.1 % Normal 36.0-48.0 [facility] Comment on above: Performed By: #### C BC #### [facility] [address] [place] [address] Dr. Karmen Mccormick Hemoglobin (Bld) [Mass/Vol] 12.1 g/dL Normal 12.0-16.0 [facility] Comment on above: Performed By: #### C BC #### [facility] [address] [place] [address] Dr. Karmen Mccormick IG # 0.02 10e3/ul Normal 0.00-0.03 [facility] Comment on above: Performed By: #### C BC #### [facility] [address] [place] [address] Dr. Karmen Mccormick IG % 0.3 % Normal 0.0-0.5 [facility] Comment on above: Performed By: #### C BC #### [facility] [address] [address] [address] Karmen Mccormick LYMPH # 2.0 103/ul Normal 1.2-3.8 [facility] Comment on above: Performed By: #### C BC #### [facility] [address] [place] [address] Dr. Karmen Mccormick Lymphocytes/100 WBC (Bld) 25.7 % Normal 20.5-60.0 [facility] Comment on above: Performed By: #### C BC #### [facility] [address] [place] [address] Dr. Karmen Mccormick MANUAL DIFF REQ NO Normal [facility] Comment on above: Performed By: #### C BC #### [facility] [address] [place] [address] Dr. Karmen Mccormick MCH (RBC) [Entitic mass] 28.8 pg Normal 26.7-34.0 [facility] Comment on above: Performed By: #### C BC #### [facility] [address] [place] [address] Dr. Karmen Mccormick MCHC (RBC) [Mass/Vol] 32.6 g/dL Normal 29.9-35.2 [facility] Comment on above: Performed By: #### C BC #### [facility] [address] [place] [address] Dr. Karmen Mccormick MCV (RBC) [Entitic vol] 88.3 fL Normal 81.0-99.[address] [facility] Comment on above: Performed By: #### C BC #### [facility] [address] [place] [address] Dr. Karmen Mccormick MONO # 0.8 103/ul Normal 0.3-0.8 [facility] Comment on above: Performed By: #### C BC #### [facility] [address] [place] [address] Dr. Karmen Mccormick Monocytes/100 WBC (Bld) 9.5 % Normal 1.7-12.[address] [facility] Comment on above: Performed By: #### C BC #### [facility] [address] [place] [address] Dr. Karmen Mccormick NEUT # 4.9 103/ul Normal 1.4-6.5 [facility] Comment on above: Performed By: #### C BC #### [facility] [address] [place] [address] Dr. Karmen Mccormick Neutrophils/100 WBC (Bld) 62.6 % Normal 43.0-75.0 [facility] Comment on above: Performed By: #### C BC #### [facility] [address] [place] [address] Dr. Karmen Mccormick Platelet mean volume (Bld) [Entitic vol] 8.9 fL Critically low 9.5-13.5 [facility] Comment on above: Performed By: #### C BC #### [facility] [address] [place] [address] Dr. Karmen Mccormick PLT 324 103/ul Normal 150-450 [facility] Comment on above: Performed By: #### C BC #### [facility] [address] [place] [address] Dr. Karmen Mccormick RBC 4.20 106/ul Normal 4.20-5.40 [facility] Comment on above: Performed By: #### C BC #### [facility] [address] [place] [address] Dr. Karmen Mccormick WBC 7.9 103/ul Normal 4.0-11.0 [facility] Comment on above: Performed By: #### C BC #### [facility] [address] [place] [address] Dr. Karmen Mccormick POINT OF CARE GLUCOSEon 03-13 Glucose [Mass/Vol] 147 mg/dL Critically high 74-[address] [facility] Comment on above: Performed By: #### P OCGLUC #### [facility] [address] [place] [address] Dr. Karmen Mccormick Glucose [Mass/Vol] 187 mg/dL Critically high 74-[address] [facility] Comment on above: Performed By: #### C VDTBH #### [facility] [address] [place] [address] Dr. Karmen Mccormick Glucose [Mass/Vol] 211 mg/dL Critically high 74-106 [facility] Comment on above: Performed By: #### B MP #### [facility] [address] [place] [address] Dr. Karmen Mccormick PROF 14(COMP METB)on 022 Albumin [Mass/Vol] 2.5 g/dL Critically low 3.4-5.0 [facility] Comment on above: Performed By: #### C BC #### [facility] [address] [place] [address] Dr. Karmen Mccormick Albumin/Globulin [Mass ratio] 0.7 {ratio} Normal [facility] Comment on above: Performed By: #### C BC #### [facility] [address] [place] [address] Dr. Karmen Mccormick ALP [Catalytic activity/Vol] 76 U/L Normal 46-116 [facility] Comment on above: Performed By: #### C BC #### [facility] [address] [place] [address] Dr. Karmen Mccormick ALT [Catalytic activity/Vol] 7 U/L Critically low 14-59 [facility] Comment on above: Performed By: #### C BC #### [facility] [address] [place] [address] Dr. Karmen Mccormick Anion gap [Moles/Vol] 10.8 mmol/L Normal [facility] Comment on above: Performed By: #### C BC #### [facility] [address] [place] [address] Dr. Karmen Mccormick AST [Catalytic activity/Vol] 11 U/L Critically low 15-37 [facility] Comment on above: Performed By: #### C BC #### [facility] [address] [place] [address] Dr. Karmen Mccormick Bilirubin [Mass/Vol] 0.3 mg/dL Normal 0.2-1.0 [facility] Comment on above: Performed By: #### C BC #### [facility] [address] [address] [address] Karmen Mccormick Calcium [Mass/Vol] 8.4 mg/dL Critically low 8.5-10.1 Th [facility] Comment on above: Performed By: #### C BC #### [facility] [address] [address] [address] Karmen Mccormick Chloride [Moles/Vol] 106 mmol/L Normal 98-107 [facility] Comment on above: Performed By: #### C BC #### [facility] [address] [place] [address] Dr. Karmen Mccormick CO2 [Moles/Vol] 23.6 mmol/L Normal 21.0-32.0 [facility] Comment on above: Performed By: #### C BC #### [facility] [address] [place] [address] Dr. Karmen Mccormick Creatinine [Mass/Vol] 0.66 mg/dL Normal 0.55-1.02 [facility] Comment on above: Performed By: #### C BC #### [facility] [address] [place] [address] Dr. Karmen Mccormick EGFR-AF UGANDAN >60 Normal >=60 [facility] Comment on above: Performed By: #### C BC #### [facility] [address] [place] [address] Dr. Karmen Mccormick EGFR-NON AF UGANDAN >60 Normal >=60 [facility] Comment on above: Performed By: #### C BC #### [facility] [address] [place] [address] Dr. Karmen Mccormick Globulin (S) [Mass/Vol] 3.4 g/dL Normal [facility] Comment on above: Performed By: #### C BC #### [facility] [address] [place] [address] Dr. Karmen Mccormick Glucose [Mass/Vol] 187 mg/dL Critically high 74-[address] [facility] Comment on above: Performed By: #### C BC #### [facility] [address] [place] [address] Dr. Karmen Mccormick Potassium [Moles/Vol] 3.4 mmol/L Critically low 3.5-5.1 [facility] Comment on above: Performed By: #### C BC #### [facility] [address] [place] [address] Dr. Karmen Mccormick Protein [Mass/Vol] 5.9 g/dL Critically low 6.4-8.2 Th [facility] Comment on above: Performed By: #### C BC #### [facility] [address] [place] [address] Dr. Karmen Mccormick Sodium [Moles/Vol] 137 mmol/L Normal 136-145 [facility] Comment on above: Performed By: #### C BC #### [facility] [address] [place] [address] Dr. Karmen Mccormick Urea nitrogen [Mass/Vol] 14.0 mg/dL Normal 7.0-18.0 [facility] Comment on above: Performed By: #### C BC #### [facility] [address] [place] [address] Dr. Karmen Mccormick Urea nitrogen/Creatinine [Mass ratio] 21.2 mg/mg Normal [facility] Comment on above: Performed By: #### C BC #### [facility] [address] [place] [address] Dr. Karmen Mccormick CBC AUTO DIFFon 03-29-2022 BASO # 0.0 103/ul Normal 0.0-0.1 [facility] Comment on above: Performed By: #### P OCGLUC #### [facility] [address] [place] [address] Dr. Karmen Mccormick Basophils/100 WBC (Bld) 0.3 % Normal 0.2-2.[address] [facility] Comment on above: Performed By: #### P OCGLUC #### [facility] [address] [place] [address] Dr. Karmen Mccormick EO # 0.0 103/ul Normal 0.0-0.7 [facility] Comment on above: Performed By: #### P OCGLUC #### [facility] [address] [place] [address] Dr. Karmen Mccormick Eosinophils/100 WBC (Bld) 0.4 % Critically low 0.9-7.0 [facility] Comment on above: Performed By: #### P OCGLUC #### [facility] [address] [place] [address] Dr. Karmen Mccormick Erythrocyte distribution width (RBC) [Ratio] 13.7 % Normal 11.0-15.0 [facility] Comment on above: Performed By: #### P OCGLUC #### [facility] [address] [place] [address] Dr. Karmen Mccormick Hematocrit (Bld) [Volume fraction] 40.9 % Normal 36.0-48.0 [facility] Comment on above: Performed By: #### P OCGLUC #### [facility] [address] [place] [address] Dr. Karmen Mccormick Hemoglobin (Bld) [Mass/Vol] 13.4 g/dL Normal 12.0-16.0 [facility] Comment on above: Performed By: #### P OCGLUC #### [facility] [address] [place] [address] Dr. Karmen Mccormick IG # 0.05 10e3/ul Critically high 0.00-0.03 [facility] Comment on above: Performed By: #### P OCGLUC #### [facility] [address] [place] [address] Dr. Karmen Mccormick IG % 0.5 % Normal 0.0-0.5 [facility] Comment on above: Performed By: #### P OCGLUC #### [facility] [address] [place] [address] Dr. Karmen Mccormick LYMPH # 1.3 103/ul Normal 1.2-3.8 [facility] Comment on above: Performed By: #### P OCGLUC #### [facility] [address] [place] [address] Dr. Karmen Mccormick Lymphocytes/100 WBC (Bld) 13.4 % Critically low 20.5-60.0 [facility] Comment on above: Performed By: #### P OCGLUC #### [facility] [address] [place] [address] Dr. Karmen Mccormick MANUAL DIFF REQ NO Normal [facility] Comment on above: Performed By: #### P OCGLUC #### [facility] [address] [place] [address] Dr. Karmen Mccormick MCH (RBC) [Entitic mass] 28.8 pg Normal 26.7-34.0 [facility] Comment on above: Performed By: #### P OCGLUC #### [facility] [address] [place] [address] Dr. Karmen Mccormick MCHC (RBC) [Mass/Vol] 32.8 g/dL Normal 29.9-35.2 [facility] Comment on above: Performed By: #### P OCGLUC #### [facility] [address] [place] [address] Dr. Karmen Mccormick MCV (RBC) [Entitic vol] 87.8 fL Normal 81.0-99.[address] [facility] Comment on above: Performed By: #### P OCGLUC #### [facility] [address] [place] [address] Dr. Karmen Mccormick MONO # 0.7 103/ul Normal 0.3-0.8 [facility] Comment on above: Performed By: #### P OCGLUC #### [facility] [address] [place] [address] Dr. Karmen Mccormick Monocytes/100 WBC (Bld) 7.4 % Normal 1.7-12.[address] [facility] Comment on above: Performed By: #### P OCGLUC #### [facility] [address] [place] [address] Dr. Karmen Mccormick NEUT # 7.6 103/ul Critically high 1.4-6.5 [facility] Comment on above: Performed By: #### P OCGLUC #### [facility] [address] [place] [address] Dr. Karmen Mccormick Neutrophils/100 WBC (Bld) 78.0 % Critically high 43.0-75.0 [facility] Comment on above: Performed By: #### P OCGLUC #### [facility] [address] [place], [place] [id number] Dr. Karmen Mccormick Platelet mean volume (Bld) [Entitic vol] 9.1 fL Critically low 9.5-13.5 [facility] Comment on above: Performed By: #### P OCGLUC #### [facility] [address] [place] [address] Dr. Karmen Mccormick PLT 370 103/ul Normal 150-450 [facility] Comment on above: Performed By: #### P OCGLUC #### [facility] [address] [address] [address] Karmen Mccormick RBC 4.66 106/ul Normal 4.20-5.40 [facility] Comment on above: Performed By: #### P OCGLUC #### [facility] [address] [address] [address] Karmen Mccormick WBC 9.8 103/ul Normal 4.0-11.0 [facility] Comment on above: Performed By: #### P OCGLUC #### [facility] [address] [address] [address] Karmen Mccormick POINT OF CARE GLUCOSEon 03-13 Glucose [Mass/Vol] 233 mg/dL Critically high 74-[address] [facility] Comment on above: Performed By: #### C VDTBH #### [facility] [address] [place] [address] Dr. Karmen Mccormick Glucose [Mass/Vol] 212 mg/dL Critically high 74-[address] [facility] Comment on above: Performed By: #### P OCGLUC #### [facility] [address] [place] [address] Dr. Karmen Mccormick Glucose [Mass/Vol] 237 mg/dL Critically high 74-[address] [facility] Comment on above: Performed By: #### A CETON #### [facility] [address] [place] [address] Dr. Karmen Mccormick PROF 14(COMP METB)on 022 Albumin [Mass/Vol] 2.6 g/dL Critically low 3.4-5.0 [facility] Comment on above: Performed By: #### P OCGLUC #### [facility] [address] [address] [address] Karmen Mccormick Albumin/Globulin [Mass ratio] 0.7 {ratio} Normal [facility] Comment on above: Performed By: #### P OCGLUC #### [facility] [address] [address] [address] Karmen Mccormick ALP [Catalytic activity/Vol] 86 U/L Normal 46-116 [facility] Comment on above: Performed By: #### P OCGLUC #### [facility] [address] [address] [address] Karmen Mccormick ALT [Catalytic activity/Vol] 12 U/L Critically low 14-59 [facility] Comment on above: Performed By: #### P OCGLUC #### [facility] [address] [address] [address] Karmen Mccormick Anion gap [Moles/Vol] 14.9 mmol/L Normal [facility] Comment on above: Performed By: #### P OCGLUC #### [facility] [address] [address] [address] Karmen Mccormick AST [Catalytic activity/Vol] 13 U/L Critically low 15-37 [facility] Comment on above: Performed By: #### P OCGLUC #### [facility] [address] [address] [address] Karmen Mccormick Bilirubin [Mass/Vol] 0.3 mg/dL Normal 0.2-1.0 [facility] Comment on above: Performed By: #### P OCGLUC #### [facility] [address] [address] [address] Karmen Mccormick Calcium [Mass/Vol] 8.8 mg/dL Normal 8.5-10.1 [facility] Comment on above: Performed By: #### P OCGLUC #### [facility] [address] [address] [address] Karmen Mccormick Chloride [Moles/Vol] 106 mmol/L Normal 98-107 [facility] Comment on above: Performed By: #### P OCGLUC #### [facility] [address] [address] [address] Karmen Mccormick CO2 [Moles/Vol] 21.6 mmol/L Normal 21.0-32.0 [facility] Comment on above: Performed By: #### P OCGLUC #### [facility] [address] [place] [address] Dr. Karmen Mccormick Creatinine [Mass/Vol] 0.77 mg/dL Normal 0.55-1.02 [facility] Comment on above: Performed By: #### P OCGLUC #### [facility] [address] [place] [address] Dr. Karmen Mccormick EGFR-AF UGANDAN >60 Normal >=60 [facility] Comment on above: Performed By: #### P OCGLUC #### [facility] [address] [place] [address] Dr. Karmen Mccormick EGFR-NON AF UGANDAN >60 Normal >=60 [facility] Comment on above: Performed By: #### P OCGLUC #### [facility] [address] [place] [address] Dr. Karmen Mccormick Globulin (S) [Mass/Vol] 3.9 g/dL Normal [facility] Comment on above: Performed By: #### P OCGLUC #### [facility] [address] [place] [address] Dr. Karmen Mccormick Glucose [Mass/Vol] 195 mg/dL Critically high 74-[address] [facility] Comment on above: Performed By: #### P OCGLUC #### [facility] [address] [place] [address] Dr. Karmen Mccormick Potassium [Moles/Vol] 3.5 mmol/L Normal 3.5-5.1 [facility] Comment on above: Performed By: #### P OCGLUC #### [facility] [address] [place] [address] Dr. Karmen Mccormick Protein [Mass/Vol] 6.5 g/dL Normal 6.4-8.2 [facility] Comment on above: Performed By: #### P OCGLUC #### [facility] [address] [place] [address] Dr. Karmen Mccormick Sodium [Moles/Vol] 139 mmol/L Normal 136-145 [facility] Comment on above: Performed By: #### P OCGLUC #### [facility] [address] [place] [address] Dr. Karmen Mccormick Urea nitrogen [Mass/Vol] 17.0 mg/dL Normal 7.0-18.0 [facility] Comment on above: Performed By: #### P OCGLUC #### [facility] [address] [place] [address] Dr. Karmen Mccormick Urea nitrogen/Creatinine [Mass ratio] 22.1 mg/mg Normal [facility] Comment on above: Performed By: #### P OCGLUC #### [facility] [address] [place] [address] Dr. Karmen Mccormick CBC AUTO DIFFon 03-28-2022 BASO # 0.0 103/ul Normal 0.0-0.1 [facility] Comment on above: Performed By: #### P OCGLUC #### [facility] [address] [place] [address] Dr. Karmen Mccormick Basophils/100 WBC (Bld) 0.3 % Normal 0.2-2.[address] [facility] Comment on above: Performed By: #### P OCGLUC #### [facility] [address] [place] [address] Dr. Karmen Mccormick EO # 0.0 103/ul Normal 0.0-0.7 [facility] Comment on above: Performed By: #### P OCGLUC #### [facility] [address] [place] [address] Dr. Karmen Mccormick Eosinophils/100 WBC (Bld) 0.2 % Critically low 0.9-7.0 [facility] Comment on above: Performed By: #### P OCGLUC #### [facility] [address] [place] [address] Dr. Karmen Mccormick Erythrocyte distribution width (RBC) [Ratio] 13.2 % Normal 11.0-15.0 [facility] Comment on above: Performed By: #### P OCGLUC #### [facility] [address] [place] [address] Dr. Karmen Mccormick Hematocrit (Bld) [Volume fraction] 39.1 % Normal 36.0-48.0 [facility] Comment on above: Performed By: #### P OCGLUC #### [facility] [address] [address] [address] Karmen Mccormick Hemoglobin (Bld) [Mass/Vol] 13.0 g/dL Normal 12.0-16.0 [facility] Comment on above: Performed By: #### P OCGLUC #### [facility] [address] [address] [address] Karmen Mccormick IG # 0.08 10e3/ul Critically high 0.00-0.03 [facility] Comment on above: Performed By: #### P OCGLUC #### [facility] [address] [place] [address] Dr. Karmen Mccormick IG % 0.7 % Critically high 0.0-0.5 [facility] Comment on above: Performed By: #### P OCGLUC #### [facility] [address] [place] [address] Dr. Karmen Mccormick LYMPH # 1.4 103/ul Normal 1.2-3.8 [facility] Comment on above: Performed By: #### P OCGLUC #### [facility] [address] [place] [address] Dr. Karmen Mccormick Lymphocytes/100 WBC (Bld) 12.3 % Critically low 20.5-60.0 [facility] Comment on above: Performed By: #### P OCGLUC #### [facility] [address] [place] [address] Dr. Karmen Mccormick MANUAL DIFF REQ NO Normal [facility] Comment on above: Performed By: #### P OCGLUC #### [facility] [address] [place] [address] Dr. Karmen Mccormick MCH (RBC) [Entitic mass] 29.3 pg Normal 26.7-34.0 [facility] Comment on above: Performed By: #### P OCGLUC #### [facility] [address] [place] [address] Dr. Karmen Mccormick MCHC (RBC) [Mass/Vol] 33.2 g/dL Normal 29.9-35.2 [facility] Comment on above: Performed By: #### P OCGLUC #### [facility] [address] [address] [address] Karmen Mccormick MCV (RBC) [Entitic vol] 88.3 fL Normal 81.0-99.[address] [facility] Comment on above: Performed By: #### P OCGLUC #### [facility] [address] [place] [address] Dr. Karmen Mccormick MONO # 0.8 103/ul Normal 0.3-0.8 [facility] Comment on above: Performed By: #### P OCGLUC #### [facility] [address] [place] [address] Dr. Karmen Mccormick Monocytes/100 WBC (Bld) 6.6 % Normal 1.7-12.[address] [facility] Comment on above: Performed By: #### P OCGLUC #### [facility] [address] [place] [address] Dr. Karmen Mccormick NEUT # 9.1 103/ul Critically high 1.4-6.5 [facility] Comment on above: Performed By: #### P OCGLUC #### [facility] [address] [place] [address] Dr. Karmen Mccormick Neutrophils/100 WBC (Bld) 79.9 % Critically high 43.0-75.0 [facility] Comment on above: Performed By: #### P OCGLUC #### [facility] [address] [place] [address] Dr. Karmen Mccormick Platelet mean volume (Bld) [Entitic vol] 10.1 fL Normal 9.5-13.5 [facility] Comment on above: Performed By: #### P OCGLUC #### [facility] [address] [place] [address] Dr. Karmen Mccormick PLT 336 103/ul Normal 150-450 [facility] Comment on above: Performed By: #### P OCGLUC #### [facility] [address] [address] [address] Karmen Mccormick RBC 4.43 106/ul Normal 4.20-5.40 [facility] Comment on above: Performed By: #### P OCGLUC #### [facility] [address] [address] [address] Karmen Mccormick WBC 11.4 103/ul Critically high 4.0-11.0 [facility] Comment on above: Performed By: #### P OCGLUC #### [facility] [address] [address] [address] Karmen Mccormick POINT OF CARE GLUCOSEon 03-13 Glucose [Mass/Vol] 198 mg/dL Critically high [address] [place] [address] Comment on above: Performed By: #### P OCGLUC #### [facility] [address] [place] [address] Dr. Karmen Mccormick Glucose [Mass/Vol] 509 mg/dL Critically high [address] [place] [address] Comment on above: Result Comment: [employer] Performed By: #### P OCGLUC #### [facility] [address] [place] [address] Dr. Karmen Mccormick Glucose [Mass/Vol] 193 mg/dL Critically high [address] [place] [address] Comment on above: Performed By: #### C VDTBH #### [facility] [address] [place] [address] Dr. Karmen Mccormick Glucose [Mass/Vol] 217 mg/dL Critically high [address] [place] [address] Comment on above: Performed By: #### C BC #### [facility] [address] [place] [address] Dr. Karmen Mccormick Glucose [Mass/Vol] 207 mg/dL Critically high [address] [place] [address] Comment on above: Performed By: #### P OCGLUC #### [facility] [address] [place] [address] Dr. Karmen Mccormick Glucose [Mass/Vol] 198 mg/dL Critically high [address] [place] [address] Comment on above: Performed By: #### P OCGLUC #### [facility] [address] [place] [address] Dr. Karmen Mccormick Glucose [Mass/Vol] 208 mg/dL Critically high [address] [place] [address] Comment on above: Performed By: #### P OCGLUC #### [facility] [address] [address] [address] Karmen Mccormick Glucose [Mass/Vol] 194 mg/dL Critically high [address] [place] [address] Comment on above: Performed By: #### P OCGLUC #### [facility] [address] [address] [address] Karmen Mccormick Glucose [Mass/Vol] 162 mg/dL Critically high [address] [place] [address] Comment on above: Performed By: #### P OCGLUC #### [facility] [address] [address] [address] Karmen Mccormick Glucose [Mass/Vol] 166 mg/dL Critically high [address] [place] [address] Comment on above: Performed By: #### P OCGLUC #### [facility] [address] [address] [address] Karmen Mccormick Glucose [Mass/Vol] 209 mg/dL Critically high [address] [place] [address] Comment on above: Performed By: #### P OCGLUC #### [facility] [address] [address] [address] Karmen Mccormick Glucose [Mass/Vol] 210 mg/dL Critically high [address] [place] [address] Comment on above: Performed By: #### P OCGLUC #### [facility] [address] [address] [address] Karmen Mccormick Glucose [Mass/Vol] 207 mg/dL Critically high [address] [place] [address] Comment on above: Performed By: #### C VDTBH #### [facility] [address] [address] [address] Karmen Mccormick Glucose [Mass/Vol] 209 mg/dL Critically high [address] [place] [address] Comment on above: Performed By: #### P OCGLUC #### [facility] [address] [address] [address] Karmen Mccormick Glucose [Mass/Vol] 225 mg/dL Critically high [facility] Comment on above: Performed By: #### A CETON #### [facility] [address] [address] [address] Karmen Mccormick Glucose [Mass/Vol] 262 mg/dL Critically high -[address] [facility] Comment on above: Performed By: #### P OCGLUC #### [facility] [address] [place] [address] Dr. Karmen Mccormick Glucose [Mass/Vol] 252 mg/dL Critically high -[address] [facility] Comment on above: Performed By: #### P OCGLUC #### [facility] [address] [place] [address] Dr. Karmen Mccormick PROF 14(COMP METB)on 022 Albumin [Mass/Vol] 2.9 g/dL Critically low 3.4-5.0 [facility] Comment on above: Performed By: #### C VDTBH #### [facility] [address] [place] [address] Dr. Karmen Mccormick Albumin/Globulin [Mass ratio] 0.7 {ratio} Normal [facility] Comment on above: Performed By: #### C VDTBH #### [facility] [address] [place] [address] Dr. Karmen Mccormick ALP [Catalytic activity/Vol] 102 U/L Normal 46-116 [facility] Comment on above: Performed By: #### C VDTBH #### [facility] [address] [place] [address] Dr. Karmen Mccormick ALT [Catalytic activity/Vol] 13 U/L Critically low 14-59 [facility] Comment on above: Performed By: #### C VDTBH #### [facility] [address] [place] [address] Dr. Karmen Mccormick Anion gap [Moles/Vol] 18.1 mmol/L Normal [facility] Comment on above: Performed By: #### C VDTBH #### [facility] [address] [place] [address] Dr. aKrmen Mccormick AST [Catalytic activity/Vol] 10 U/L Critically low 15-37 [facility] Comment on above: Performed By: #### C VDTBH #### [facility] [address] [place] [address] Dr. Karmen Mccormick Bilirubin [Mass/Vol] 0.2 mg/dL Normal 0.2-1.0 [facility] Comment on above: Performed By: #### C VDTBH #### [facility] [address] [place] [address] Dr. Karmen Mccormick Calcium [Mass/Vol] 9.5 mg/dL Normal 8.5-10.1 [facility] Comment on above: Performed By: #### C VDTBH #### [facility] [address] [place] [address] Dr. Karmen Mccormick Chloride [Moles/Vol] 107 mmol/L Normal 98-107 [facility] Comment on above: Performed By: #### C VDTBH #### [facility] [address] [place] [address] Dr. Karmen Mccormick CO2 [Moles/Vol] 21.3 mmol/L Normal 21.0-32.0 [facility] Comment on above: Performed By: #### C VDTBH #### [facility] [address] [place] [address] Dr. Karmen Mccormick Creatinine [Mass/Vol] 0.86 mg/dL Normal 0.55-1.02 [facility] Comment on above: Performed By: #### C VDTBH #### [facility] [address] [place] [address] Dr. Karmen Mccormick EGFR-AF UGANDAN >60 Normal >=60 [facility] Comment on above: Performed By: #### C VDTBH #### [facility] [address] [place] [address] Dr. Karmen Mccormick EGFR-NON AF UGANDAN >60 Normal >=60 [facility] Comment on above: Performed By: #### C VDTBH #### [facility] [address] [place] [address] Dr. Karmen Mccormick Globulin (S) [Mass/Vol] 4.3 g/dL Normal [facility] Comment on above: Performed By: #### C VDTBH #### [facility] [address] [address] [address] Karmen Mccormick Glucose [Mass/Vol] 199 mg/dL Critically high 74-[address] [facility] Comment on above: Performed By: #### C VDTBH #### [facility] [address] [place] [address] Dr. Karmen Mccormick Potassium [Moles/Vol] 4.4 mmol/L Normal 3.5-5.1 [facility] Comment on above: Performed By: #### C VDTBH #### [facility] [address] [place] [address] Dr. Karmen Mccormick Protein [Mass/Vol] 7.2 g/dL Normal 6.4-8.2 [facility] Comment on above: Performed By: #### C VDTBH #### [facility] [address] [place] [address] Dr. Karmen Mccormick Sodium [Moles/Vol] 142 mmol/L Normal 136-145 [facility] Comment on above: Performed By: #### C VDTBH #### [facility] [address] [place] [address] Dr. Karmen Mccormick Urea nitrogen [Mass/Vol] 22.0 mg/dL Critically high 7.0-18.0 [facility] Comment on above: Performed By: #### C VDTBH #### [facility] [address] [place] [address] Dr. Karmen Mccormick Urea nitrogen/Creatinine [Mass ratio] 25.6 mg/mg Normal [facility] Comment on above: Performed By: #### C VDTBH #### [facility] [address] [place] [address] Dr. Karmen Mccormick PROF CHEM 8 (BAS METB)on Anion gap [Moles/Vol] 15.8 mmol/L Normal [facility] Comment on above: Performed By: #### A CETON #### [facility] [address] [place] [address] Dr. Karmen Mccormick Calcium [Mass/Vol] 9.3 mg/dL Normal 8.5-10.1 [facility] Comment on above: Performed By: #### A CETON #### [facility] [address] [address] [address] Karmen Mccormick Chloride [Moles/Vol] 106 mmol/L Normal 98-107 [facility] Comment on above: Performed By: #### A CETON #### [facility] [address] [address] [address] Karmen Mccormick CO2 [Moles/Vol] 22.0 mmol/L Normal 21.0-32.0 [facility] Comment on above: Performed By: #### A CETON #### [facility] [address] [place] [address] Dr. Karmen Mccormick Creatinine [Mass/Vol] 0.83 mg/dL Normal 0.55-1.02 [facility] Comment on above: Performed By: #### A CETON #### [facility] [address] [place] [address] Dr. Karmen Mccormick EGFR-AF UGANDAN >60 Normal >=60 [facility] Comment on above: Performed By: #### A CETON #### [facility] [address] [place] [address] Dr. aKrmen Mccormick EGFR-NON AF UGANDAN >60 Normal >=60 [facility] Comment on above: Performed By: #### A CETON #### [facility] [address] [place] [address] Dr. Karmen Mccormick Glucose [Mass/Vol] 233 mg/dL Critically high 74-[address] [facility] Comment on above: Performed By: #### A CETON #### [facility] [address] [address] [address] Karmen Mccormick Potassium [Moles/Vol] 3.8 mmol/L Normal 3.5-5.1 [facility] Comment on above: Performed By: #### A CETON #### [facility] [address] [place] [address] Dr. Karmen Mccormick Sodium [Moles/Vol] 140 mmol/L Normal 136-145 [facility] Comment on above: Performed By: #### A CETON #### [facility] [address] [address] [address] Karmen Mccormick Urea nitrogen [Mass/Vol] 21.0 mg/dL Critically high 7.0-18.0 [facility] Comment on above: Performed By: #### A CETON #### [facility] [address] [address] [address] Karmen Mccormick Urea nitrogen/Creatinine [Mass ratio] 25.3 mg/mg Normal [facility] Comment on above: Performed By: #### A CETON #### [facility] [address] [address] [address] Karmen Mccormick Anion gap [Moles/Vol] 20.4 mmol/L Normal [facility] Comment on above: Performed By: #### C BC #### [facility] [address] [place] [address] Dr. Karmen Mccormick Calcium [Mass/Vol] 9.7 mg/dL Normal 8.5-10.1 [facility] Comment on above: Performed By: #### C BC #### [facility] [address] [place] [address] Dr. Karmen Mccormick Chloride [Moles/Vol] 104 mmol/L Normal 98-107 [facility] Comment on above: Performed By: #### C BC #### [facility] [address] [address] [address] Karmen Mccormick CO2 [Moles/Vol] 17.7 mmol/L Critically low 21.0-32.0 [facility] Comment on above: Performed By: #### C BC #### [facility] [address] [address] [address] Karmen Mccormick Creatinine [Mass/Vol] 1.00 mg/dL Normal 0.55-1.02 [facility] Comment on above: Performed By: #### C BC #### [facility] [address] [address] [address] Karmen Mccormick EGFR-AF UGANDAN >60 Normal >=60 [facility] Comment on above: Performed By: #### C BC #### [facility] [address] [address] [address] Karmen Mccormick EGFR-NON AF UGANDAN 55 mL/min/1.73m2 Critically low >=60 [facility] Comment on above: Performed By: #### C BC #### [facility] [address] [address] [address] Karmen Mccormick Glucose [Mass/Vol] 277 mg/dL Critically high 74-106 [facility] Comment on above: Performed By: #### C BC #### [facility] [address] [address] [address] Karmen Mccormick Potassium [Moles/Vol] 4.1 mmol/L Normal 3.5-5.1 [facility] Comment on above: Performed By: #### C BC #### [facility] [address] [address] [address] Karmen Mccormick Sodium [Moles/Vol] 138 mmol/L Normal 136-145 [facility] Comment on above: Performed By: #### C BC #### [facility] [address] [address] [address] Karmen Mccormick Urea nitrogen [Mass/Vol] 23.0 mg/dL Critically high 7.0-18.0 [facility] Comment on above: Performed By: #### C BC #### [facility] [address] [address] [address] Karmen Mccormick Urea nitrogen/Creatinine [Mass ratio] 23.0 mg/mg Normal [facility] Comment on above: Performed By: #### C BC #### [facility] [address] [address] [address] Karmen Mccormick ACETONE SERUMon 03-27-2022 ACETONE SMALL Abnormal NEGATIVE [facility] Comment on above: Performed By: #### A CETON #### [facility] [address] [address] [address] Karmen Mccormick CBC AUTO DIFFon 03-27-2022 BASO # 0.0 103/ul Normal 0.0-0.1 [facility] Comment on above: Performed By: #### P OCGLUC #### [facility] [address] [address] [address] Karmen Mccormick Basophils/100 WBC (Bld) 0.3 % Normal 0.2-2.[address] [facility] Comment on above: Performed By: #### P OCGLUC #### [facility] [address] [address] [address] Karmen Mccormick EO # 0.0 103/ul Normal 0.0-0.7 [facility] Comment on above: Performed By: #### P OCGLUC #### [facility] [address] [address] [address] Karmen Mccormick Eosinophils/100 WBC (Bld) 0.2 % Critically low 0.9-7.0 [facility] Comment on above: Performed By: #### P OCGLUC #### [facility] [address] [place] [address] Dr. Karmen Mccormick Erythrocyte distribution width (RBC) [Ratio] 13.0 % Normal 11.0-15.0 [facility] Comment on above: Performed By: #### P OCGLUC #### [facility] [address] [address] [address] Karmen Mccormick Hematocrit (Bld) [Volume fraction] 42.0 % Normal 36.0-48.0 [facility] Comment on above: Performed By: #### P OCGLUC #### [facility] [address] [address] [address] Karmen Mccormick Hemoglobin (Bld) [Mass/Vol] 13.5 g/dL Normal 12.0-16.0 [facility] Comment on above: Performed By: #### P OCGLUC #### [facility] [address] [address] [address] Karmen Mccormick IG # 0.07 10e3/ul Critically high 0.00-0.03 [facility] Comment on above: Performed By: #### P OCGLUC #### [facility] [address] [address] [address] Karmen Mccormick IG % 0.8 % Critically high 0.0-0.5 [facility] Comment on above: Performed By: #### P OCGLUC #### [facility] [address] [address] [address] Karmen Mccormick LYMPH # 1.0 103/ul Critically low 1.2-3.8 [facility] Comment on above: Performed By: #### P OCGLUC #### [facility] [address] [address] [address] Karmen Mccormick Lymphocytes/100 WBC (Bld) 11.0 % Critically low 20.5-60.0 [facility] Comment on above: Performed By: #### P OCGLUC #### [facility] [address] [address] [address] Karemn Mccormick MANUAL DIFF REQ NO Normal [facility] Comment on above: Performed By: #### P OCGLUC #### [facility] [address] [address] [address] Karmen Mccormick MCH (RBC) [Entitic mass] 28.8 pg Normal 26.7-34.0 [facility] Comment on above: Performed By: #### P OCGLUC #### [facility] [address] [address] [address] Karmen Mccormick MCHC (RBC) [Mass/Vol] 32.1 g/dL Normal 29.9-35.2 [facility] Comment on above: Performed By: #### P OCGLUC #### [facility] [address] [address] [address] Karmen Mccormick MCV (RBC) [Entitic vol] 89.7 fL Normal 81.0-99.[address] [facility] Comment on above: Performed By: #### P OCGLUC #### [facility] [address] [address] [address] Karmen Mccormick MONO # 0.4 103/ul Normal 0.3-0.8 [facility] Comment on above: Performed By: #### P OCGLUC #### [facility] [address] [address] [address] Karmen Mccormick Monocytes/100 WBC (Bld) 4.8 % Normal 1.7-12.[address] [facility] Comment on above: Performed By: #### P OCGLUC #### [facility] [address] [address] [address] Karmen Mccormick NEUT # 7.5 103/ul Critically high 1.4-6.5 [facility] Comment on above: Performed By: #### P OCGLUC #### [facility] [address] [address] [address] Karmen Mccormick Neutrophils/100 WBC (Bld) 82.9 % Critically high 43.0-75.0 [facility] Comment on above: Performed By: #### P OCGLUC #### [facility] [address] [place] [address] Dr. Karmen Mccormick Platelet mean volume (Bld) [Entitic vol] 10.3 fL Normal 9.5-13.5 [facility] Comment on above: Performed By: #### P OCGLUC #### [facility] [address] [place] [address] Dr. Karmen Mccormick PLT 333 103/ul Normal 150-450 [facility] Comment on above: Performed By: #### P OCGLUC #### [facility] [address] [place] [address] Dr. Karmen Mccormick RBC 4.68 106/ul Normal 4.20-5.40 [facility] Comment on above: Performed By: #### P OCGLUC #### [facility] [address] [place] [address] Dr. Karmen Mccormick WBC 9.0 103/ul Normal 4.0-11.0 [facility] Comment on above: Performed By: #### P OCGLUC #### [facility] [address] [place] [address] Dr. Karmen Mccormick Covid-19 PCR ([facility])on 03-13 SARS-CoV-2 (COVID-19) RNA IRVIN+probe Ql (Unsp spec) Not detected Normal NOT DETECTED [facility] Comment on above: Result Comment: When [...] for this test is supported by the [place] of [employer] and Human Service's declaration that [...] used). Performed By: #### C VDTBH #### [facility] [address] [place] [address] Dr. Karmen Mccormick ER URINE PROFILEon 2 Bilirubin Ql (U) Negative Normal NEGATIVE [facility] Comment on above: Performed By: #### P OCGLUC #### [facility] [address] [place] [address] Dr. Karmen Mccormick Clarity (U) CLEAR Normal CLEAR [facility] Comment on above: Performed By: #### P OCGLUC #### [facility] [address] [place] [address] Dr. Karmen Mccormick Color (U) LT. YELLOW Normal YELLOW [facility] Comment on above: Performed By: #### P OCGLUC #### [facility] [address] [place] [address] Dr. Kamren ANDREWLay A micrscopic examination will be performed if indicated. Normal [facility] Comment on above: Performed By: #### P OCGLUC #### [facility] [address] [place] [address] Dr. Karmen Mccormick Glucose Ql (U) 1000 mg/dl Abnormal NEGATIVE [facility] Comment on above: Performed By: #### P OCGLUC #### [facility] [address] [place] [address] Dr. Karmen Mccormick Hemoglobin Ql (U) Negative Normal NEGATIVE [facility] Comment on above: Performed By: #### P OCGLUC #### [facility] [address] [address] [address] Karmen Mccormick Ketones Ql (U) >=80 Abnormal NEGATIVE [facility] Comment on above: Performed By: #### P OCGLUC #### [facility] [address] [address] [address] Karmen Mccormick LEUKOCYTES Negative Normal NEGATIVE [facility] Comment on above: Performed By: #### P OCGLUC #### [facility] [address] [address] [address] Karmen Mccormick Nitrite Ql (U) Negative Normal NEGATIVE [facility] Comment on above: Performed By: #### P OCGLUC #### [facility] [address] [place] [address] Dr. Karmen Mccormick pH (U) 5.5 [pH] Normal 5-9 [facility] Comment on above: Performed By: #### P OCGLUC #### [facility] [address] [place] [address] Dr. Karmen Mccormick SPEC GRAVITY 1.020 Normal 1.005-<=1.025 [facility] Comment on above: Performed By: #### P OCGLUC #### [facility] [address] [place] [address] Dr. Karmen Mccormick UA PROTEIN Negative Normal NEGATIVE/ TRACE [facility] Comment on above: Performed By: #### P OCGLUC #### [facility] [address] [place] [address] Dr. Karmen Mccormick UR MICRO IND NOT INDICATED Normal [facility] Comment on above: Performed By: #### P OCGLUC #### [facility] [address] [place] [address] Dr. Karmen Mccormick Urobilinogen Qn (U) 0.2 {Rajeev'U}/dL Normal 0.2 - 1. 0 [facility] Comment on above: Performed By: #### P OCGLUC #### [facility] [address] [place] [address] Dr. Karmen Mccormick LACTATE/LACTIC ACIDon 2021 Lactate [Moles/Vol] 1.5 mmol/L Normal 0.4-1.9 [facility] Comment on above: Performed By: #### P OCGLUC #### [facility] [address] [address] [address] Karmen Mccormick LIPASEon 03-27-2022 Lipase [Catalytic activity/Vol] 67.0 U/L Critically low 73.0-393.0 [facility] Comment on above: Performed By: #### P OCGLUC #### [facility] [address] [address] [address] Karmen Mccormick PH VENOUS BLOODon 03-27-2022 PCO2 VENOUS 30.3 mmHg Critically low 40.0-52.0 [facility] Comment on above: Performed By: #### P OCGLUC #### [facility] [address] [place] [address] Dr. Karmen Mccormick pH VENOUS 7.223 Critically low 7.330-7.430 [facility] Comment on above: Performed By: #### P OCGLUC #### [facility] [address] [place] [address] Dr. Karmen Mccormick POINT OF CARE GLUCOSEon 03-13 Glucose [Mass/Vol] 318 mg/dL Critically high [address] [place] [address] Comment on above: Performed By: #### P OCGLUC #### [facility] [address] [place] [address] Dr. Karmen Mccormick Glucose [Mass/Vol] 289 mg/dL Critically high [address] [place] [address] Comment on above: Performed By: #### P OCGLUC #### [facility] [address] [place] [address] Dr. Karmen Mccormick Glucose [Mass/Vol] 330 mg/dL Critically high [address] [place] [address] Comment on above: Performed By: #### P OCGLUC #### [facility] [address] [place] [address] Dr. Karmen Mccormick Glucose [Mass/Vol] 413 mg/dL Critically high [facility] [facility] Comment on above: Performed By: #### P OCGLUC #### [facility] [address] [place] [address] Dr. Karmen Mccormick Glucose [Mass/Vol] 428 mg/dL Critically high 74-[address] [facility] Comment on above: Performed By: #### B MP #### [facility] [address] [address] [address] Karmen Mccormick Glucose [Mass/Vol] 510 mg/dL Critically high 74-[address] [facility] Comment on above: Result Comment: Resu lt Not Confirmed Performed By: #### A CETON #### [facility] [address] [address] [address] Karmen Mccormick Glucose [Mass/Vol] 587 mg/dL Critically high -[address] [facility] Comment on above: Result Comment: Lab Draw Ordered Performed By: #### B MP #### [facility] [address] [place] [address] Dr. Karmen Mccormick PROF 14(COMP METB)on 022 Albumin [Mass/Vol] 3.1 g/dL Critically low 3.4-5.0 [facility] Comment on above: Performed By: #### P OCGLUC #### [facility] [address] [place] [address] Dr. Karmen Mccormick Albumin/Globulin [Mass ratio] 0.7 {ratio} Normal [facility] Comment on above: Performed By: #### P OCGLUC #### [facility] [address] [place] [address] Dr. Karmen Mccormick ALP [Catalytic activity/Vol] 108 U/L Normal 46-116 [facility] Comment on above: Performed By: #### P OCGLUC #### [facility] [address] [place] [address] Dr. Karmen Mccormick ALT [Catalytic activity/Vol] 14 U/L Normal 14-59 [facility] Comment on above: Performed By: #### P OCGLUC #### [facility] [address] [place] [address] Dr. Karmen Mccormick Anion gap [Moles/Vol] 29.9 mmol/L Normal [facility] Comment on above: Performed By: #### P OCGLUC #### [facility] [address] [address] [address] Karmen Mccormick AST [Catalytic activity/Vol] 8 U/L Critically low 15-37 [facility] Comment on above: Performed By: #### P OCGLUC #### [facility] [address] [address] [address] Karmen Mccormick Bilirubin [Mass/Vol] 0.5 mg/dL Normal 0.2-1.0 [facility] Comment on above: Performed By: #### P OCGLUC #### [facility] [address] [address] [address] Karmen Mccormick Calcium [Mass/Vol] 9.6 mg/dL Normal 8.5-10.1 [facility] Comment on above: Performed By: #### P OCGLUC #### [facility] [address] [address] [address] Karmen Mccormick Chloride [Moles/Vol] 95 mmol/L Critically low 98-107 [facility] Comment on above: Performed By: #### P OCGLUC #### [facility] [address] [address] [address] Karmen Mccormick CO2 [Moles/Vol] 11.3 mmol/L Critically low 21.0-32.0 [facility] Comment on above: Performed By: #### P OCGLUC #### [facility] [address] [address] [address] Karmen Mccormick Creatinine [Mass/Vol] 1.23 mg/dL Critically high 0.55-1.02 [facility] Comment on above: Performed By: #### P OCGLUC #### [facility] [address] [address] [address] Karmen Mccormick EGFR-AF UGANDAN 53 mL/min/1.73m2 Critically low >=60 [facility] Comment on above: Performed By: #### P OCGLUC #### [facility] [address] [address] [address] Karmen Mccormick EGFR-NON AF UGANDAN 43 mL/min/1.73m2 Critically low >=60 [facility] Comment on above: Performed By: #### P OCGLUC #### [facility] [address] [address] [address] Karmen Mccormick Globulin (S) [Mass/Vol] 4.5 g/dL Normal [facility] Comment on above: Performed By: #### P OCGLUC #### [facility] [address] [address] [address] Karmen Mccormick Glucose [Mass/Vol] 693 mg/dL Critically high 74-[address] [facility] Comment on above: Result Comment: DILU ASHLEY Performed By: #### P OCGLUC #### [facility] [address] [address] [address] Karmen Mccormick Potassium [Moles/Vol] 5.2 mmol/L Critically high 3.5-5.1 [facility] Comment on above: Performed By: #### P OCGLUC #### [facility] [address] [address] [address] Karmen Mccormick Protein [Mass/Vol] 7.6 g/dL Normal 6.4-8.2 [facility] Comment on above: Performed By: #### P OCGLUC #### [facility] [address] [address] [address] Karmen Mccormick Sodium [Moles/Vol] 131 mmol/L Critically low 136-145 [facility] Comment on above: Performed By: #### P OCGLUC #### [facility] [address] [address] [address] Karmen Mccormick Urea nitrogen [Mass/Vol] 28.0 mg/dL Critically high 7.0-18.0 [facility] Comment on above: Performed By: #### P OCGLUC #### [facility] [address] [address] [address] Karmen Mccormick Urea nitrogen/Creatinine [Mass ratio] 22.8 mg/mg Normal [facility] Comment on above: Performed By: #### P OCGLUC #### [facility] [address] [address] [address] Karmen Mccormick PROF CHEM 8 (BAS METB)on Anion gap [Moles/Vol] 23.1 mmol/L Normal [facility] Comment on above: Performed By: #### B MP #### [facility] [address] [address] [address] Karmen Mccormick Calcium [Mass/Vol] 9.4 mg/dL Normal 8.5-10.1 [facility] Comment on above: Performed By: #### B MP #### [facility] [address] [address] [address] Karmen Mccormick Chloride [Moles/Vol] 103 mmol/L Normal 98-107 [facility] Comment on above: Performed By: #### B MP #### [facility] [address] [address] [address] Karmen Mccormick CO2 [Moles/Vol] 16.4 mmol/L Critically low 21.0-32.0 [facility] Comment on above: Performed By: #### B MP #### [facility] [address] [address] [address] Karmen Mccormick Creatinine [Mass/Vol] 1.08 mg/dL Critically high 0.55-1.02 [facility] Comment on above: Performed By: #### B MP #### [facility] [address] [address] [address] Karmen Mccormick EGFR-AF UGANDAN >60 Normal >=60 [facility] Comment on above: Performed By: #### B MP #### [facility] [address] [address] [address] Karmen Mccormick EGFR-NON AF UGANDAN 50 mL/min/1.73m2 Critically low >=60 [facility] Comment on above: Performed By: #### B MP #### [facility] [address] [address] [address] Karmen Mccormick Glucose [Mass/Vol] 368 mg/dL Critically high 74-[address] [facility] Comment on above: Performed By: #### B MP #### [facility] [address] [address] [address] Karmen Mccormick Potassium [Moles/Vol] 4.5 mmol/L Normal 3.5-5.1 [facility] Comment on above: Performed By: #### B MP #### [facility] [address] [address] [address] Karmen Mccormick Sodium [Moles/Vol] 138 mmol/L Normal 136-145 [facility] Comment on above: Performed By: #### B MP #### [facility] [address] [address] [address] Karmen Mccormick Urea nitrogen [Mass/Vol] 23.0 mg/dL Critically high 7.0-18.0 [facility] Comment on above: Performed By: #### B MP #### [facility] [address] [place] [address] Dr. Karmen Mccormick Urea nitrogen/Creatinine [Mass ratio] 21.3 mg/mg Normal [facility] Comment on above: Performed By: #### B MP #### [facility] [address] [place] [address] Dr. Karmen Mccormick PROTIMEon 03-27-2022 INR Coag (PPP) [Relative time] 0.99 {INR} Normal [facility] Comment on above: Performed By: #### B MP #### [facility] [address] [place] [address] Dr. Karmen Mccormick INR GUIDELINES SEE BELOW Normal [facility] Comment on above: Result Comment: ELVIRA RED INR: 2.0 - 3.0 CONDITIONS NOT LISTED BELOW 2.5 - 3.5 FOR PROSTHETIC HEART VALVE REPLACEMENT 2.5 - 3.5 RECURRENT THROMBOSIS Performed By: #### B MP #### [facility] [address] [place] [address] Dr. Karmen Mccormick PT Coag (PPP) [Time] 10.7 s Normal 9.0-11.6 [facility] Comment on above: Performed By: #### B MP #### [facility] [address] [place] [address] Dr. Karmen Mccormick PTTon 03-27-2022 aPTT Coag (Bld) [Time] 22.0 s Critically low 22.3-36.2 [facility] Comment on above: Performed By: #### A CETON #### [facility] [address] [place] [address] Dr. Karmen Mccormick TROPONIN, HIGH SENSITIVITYon 03-27-2022 HSTROP 54.4 pg/mL Critically high 4.0-51.3 [facility] Comment on above: Result Comment: CUT- OFF POINTS HAVE BEEN ESTABLISHED BASED ON THE FOURTH UNIVERSAL DEFINITIONS OF MYOCARDIAL INFARCTION. THE UPPER REFERENCE LIMIT (URL) OF TROPONIN, DEFINED THE 99TH PERCENTILE OF cTnI DISTRIBUTION IN A REFERENCE POPULATION, HAS BEEN CONFIRMED THE DECISION THRESHOLD FOR CT DIAGNOSIS. Performed By: #### C BC #### [facility] [address] [address] [address] Karmen Mccormick HSTROP 59.3 pg/mL Critically high 4.0-51.3 [facility] Comment on above: Result Comment: CUT- OFF POINTS HAVE BEEN ESTABLISHED BASED ON THE FOURTH UNIVERSAL DEFINITIONS OF MYOCARDIAL INFARCTION. THE UPPER REFERENCE LIMIT (URL) OF TROPONIN, DEFINED THE 99TH PERCENTILE OF cTnI DISTRIBUTION IN A REFERENCE POPULATION, HAS BEEN CONFIRMED THE DECISION THRESHOLD FOR CT DIAGNOSIS. Performed By: #### P OCGLUC #### [facility] [address] [address] [address] Karmen Mccormick TSHon 03-27-2022 TSH 1.327 uIU/mL Normal 0.358-3.740 [facility] Comment on above: Performed By: #### P OCGLUC #### [facility] [address] [place] [address] Dr. Karmen Mccormick Vital Signs Date Time Vital Sign Value Performing Clinician Faci lity 12-21-2024 10: Body height 177.8 cm Lety Rothman MD Work Phone: [facility] 12-21-2024 10:040 Body mass index (BMI) [Ratio] 29.41 kg/m2 Lety Rothman MD Work Phone: [facility] 12-21-2024 10: Body weight 92.99 kg Lety Rothman MD Work Phone: [facility] 12-21-2024 [id number] Diastolic blood pressure 66 mm[Hg] Lety Rothman MD Work Phone: [facility] 12-21-2024 10:26-0400 Heart rate 55 /min Lety Rothman MD Work Phone: [facility] 12-21-2024 10:26-0400 Respiratory rate 16 /min Lety Rothman MD Work Phone: [facility] 12-21-2024 10:26-0400 SaO2% (BldA) [Mass fraction] 97 % Lety Rothman MD Work Phone: [facility] 12-21-2024 10:26-0400 Systolic blood pressure 124 mm[Hg] Lety Rothman MD Work Phone: [facility] 11-16-2024 13:14-0500 Body height 177.8 cm Adan Pearson DPM Work Phone: [facility] 11-16-2024 13:14-0500 Body mass index (BMI) [Ratio] 30.13 kg/m2 Adan Pearson DPM Work Phone: [facility] 11-16-2024 13:14-0500 Body weight 95.25 kg Adan Pearson DPM Work Phone: [facility] 11-16-2024 13:14-0500 Respiratory rate 18 /min Adan Pearson DPM Work Phone: [facility] 06-14-2024 11:12-0400 Body height 180.3 cm Lety Rothman MD Work Phone: [facility] 06-14-2024 11:12-0400 Body mass index (BMI) [Ratio] 29.15 kg/m2 Lety Rothman MD Work Phone: [facility] 06-14-2024 11:12-0400 Body weight 94.8 kg Lety Rothman MD Work Phone: [facility] 06-14-2024 11:12-0400 Diastolic blood pressure 78 mm[Hg] Lety Rothman MD Work Phone: [facility] 06-14-2024 11:12-0400 Heart rate 56 /min Lety Rothman MD Work Phone: [facility] 06-14-2024 11:12-0400 Respiratory rate 16 /min Lety Rothman MD Work Phone: [facility] 06-14-2024 11:12-0400 Systolic blood pressure 152 mm[Hg] Lety Rothman MD Work Phone: [facility] Encounters Encounter Date Encounter Type Care Provider Facility Start: 12-25-2024 End: 12-26-2024 Telephone encounter Lety Rothman MD Work Phone: [facility] Comment on above: Med Refill Start: 12-21-2024 End: 12-21-2024 Bamboo flowsheet Lety Rothman MD Work Phone: [facility] Start: 12-21-2024 End: 12-21-2024 Bamboo flowsheet Lety Rothman MD Work Phone: [facility] Start: 12-21-2024 End: 12-21-2024 Office outpatient visit 25 minutes Lety Rothman MD Work Phone: [facility] Comment on above: Type 2 diabetes natalie itus with hyperglycemia, with long-term current use of insulin ([facility]) (Primary Dx); Primary hypertension ([facility]); Encounter for dietary consultation; Insulin long-term use ([facility]); Vitamin D deficiency; Hyperlipemia, mixed ([facility]); Hypoglycemia Start: 12-21-2024 End: 12-21-2024 ambulatory LETY ROTHMAN Not Available Start: 11-21-2024 End: 11-21-2024 ambulatory Dav Cardenas Facility:[facility] Ana Laura watson Start: 11-16-2024 End: 11-16-2024 Office outpatient visit 15 minutes Adan Pearson DPM Work Phone: [facility] Comment on above: Contusion of left fo ot, initial encounter (Primary Dx); Diabetes mellitus due to underlying condition with diabetic polyneuropathy, without long-term current use of insulin ([facility]); Pain due to onychomycosis of toenails of both feet Start: 11-16-2024 End: 11-16-2024 Bamboo flowsheet Adan Pearson DPM Work Phone: [facility] Start: 11-16-2024 End: 11-16-2024 Bamboo flowsheet Adan Pearson DPM Work Phone: [facility] Start: 11-16-2024 End: 11-16-2024 ambulatory ADAN PEARSON Not Available Start: 10-27-2024 ambulatory Dav Cardenas Facility:[facility] Start: 06-14-2024 End: 06-14-2024 Bamboo flowsheet Lety Rothman MD Work Phone: [facility] Start: 06-14-2024 End: 06-14-2024 Bamboo flowsheet Lety Rothman MD Work Phone: [facility] Start: 06-14-2024 End: 06-14-2024 Office outpatient visit 25 minutes Lety Rothman MD Work Phone: [facility] Comment on above: Hypoglycemia (Primar y Dx); Type 2 diabetes mellitus with hyperglycemia, with long-term current use of insulin ([facility]); Primary hypertension ([facility]); Encounter for dietary consultation; Insulin long-term use ([facility]); Vitamin D deficiency; Hyperlipemia, mixed ([facility]/HCC) Start: 06-14-2024 End: 06-14-2024 ambulatory LETY ROTHMAN [...] Evaluation and management of inpatient [facility] Facility:H1 Procedures Date Procedure Procedure Detail Performing Clinician Start: 12-21-2024 Gluc bld gluc mntr d ev cleared fda spec home use Lety Rothman MD Work Phone: Start: 06-14-2024 End: 06-14-2024 Gluc bld gluc mntr dev cleared fda spec home use Lety Rothman MD Work Phone: Start: 03-28-2022 Drainage of Perineum Skin, External Approach [facility] Start: 03-09-2017 Mammography Lety motta MD Work Phone: Plan of Treatment Date Care Activity Detail Author Start: 04-19-2025 End: 04-19-2025 Patient encounter procedure 04/19/2025 10:50 AM EDT Office Visit [facility] [address] [place] [phone] Lety Rothman MD [address] [place] [address] [facility] Start: 01-25-2025 End: 01-25-2025 Patient encounter procedure 01/25/2025 1:20 PM EDT Office Visit [facility] [address] [facility] [address] [place] [address] Adan Pearson DPM [address] [facility] [address] [place] [address] [facility] Start: 12-21-2024 End: 12-21-2024 Patient encounter procedure 12/21/2024 10:50 AM EDT Office Visit [facility] [address] [place] [address] Lety Rothman MD [address] [place] [address] Type 2 diabetes mellitus with hyperglycemia, with long-term current use of insulin ([facility]) [facility] Comment on above: Type 2 diabetes natalie itus with hyperglycemia, with long-term current use of insulin ([facility]) Start: 12-06-2024 End: 12-06-2024 Patient encounter procedure 12/06/2024 11:10 AM EDT Office Visit [facility] [address] [place] [address] Lety Rothman MD [address] [place] [address] [facility] Start: 11-16-2024 End: 11-16-2024 Patient encounter procedure 11/16/2024 2:30 PM EST Office Visit [facility] [address] [facility] [address] [place] [phone] Adan Pearson, DPSuraj [address] [facility] [address] [place] [address] Arrived [facility] Comment on above: Arrived Start: 09-27-2024 End: 09-27-2024 Patient encounter procedure 09/27/2024 10:50 AM EST Office Visit [facility] [address] [place] [phone] Lety Rothman MD [address] [place] [address] [facility] Start: 08-17-2024 End: 08-17-2024 Patient encounter procedure 08/17/2024 10:45 AM EST Procedure Visit [facility] [address] [place] [id number] Cory Albright DPM [address] [place], [place] [phone] [facility] Start: 06-14-2024 End: 06-14-2025 25-hydroxyvitamin D3 [Mass/volume] in Serum or Plasma Vitamin D 25 hydroxy Total Lab Routine Type 2 diabetes mellitus with hyperglycemia, with long-term current use of insulin ([facility]) Expected: 06/14/2024 (Approximate), Expires: 06/14/2025 [facility] Comment on above: Expected: 06/14/2024 (Approximate), Expires: 06/14/2025 Start: 06-14-2024 End: 06-14-2025 C-peptide C-peptide Lab Routine Type 2 diabetes mellitus with hyperglycemia, with long-term current use of insulin ([facility]/HCC) Expected: 06/14/2024 (Approximate), Expires: 06/14/2025 [facility] Work Phone: Comment on above: Expected: 06/14/2024 (Approximate), Expires: 06/14/2025 Start: 06-14-2024 End: 06-14-2025 Lipid 1996 panel - Serum or Plasma Lipid panel Lab Routine Type 2 diabetes mellitus with hyperglycemia, with long-term current use of insulin ([facility]/HCC) Expected: 06/14/2024 (Approximate), Expires: 06/14/2025 [facility] Comment on above: Expected: 06/14/2024 (Approximate), Expires: 06/14/2025 Start: 06-14-2024 End: 06-14-2025 Microalbumin/Creatinin e panel in random Urine Microalbumin / creatinine urine ratio Lab Routine Type 2 diabetes mellitus with hyperglycemia, with long-term current use of insulin ([facility]CC) Expected: 06/14/2024 (Approximate), Expires: 06/14/2025 [facility] Comment on above: Expected: 06/14/2024 (Approximate), Expires: 06/14/2025 Start: 06-14-2024 End: 06-14-2025 Renal function panel Renal function panel Lab Routine Type 2 diabetes mellitus with hyperglycemia, with long-term current use of insulin ([facility]) Expected: 06/14/2024 (Approximate), Expires: 06/14/2025 [facility] Comment on above: Expected: 06/14/2024 (Approximate), Expires: 06/14/2025 Start: 06-14-2024 End: 06-14-2024 Patient encounter procedure 06/14/2024 10:40 AM EDT Office Visit [facility] [address] [place] [address] Lety Rothman MD [address] [place] [address] Type 2 diabetes mellitus with hyperglycemia, with long-term current use of insulin ([facility]) [facility] Comment on above: Type 2 diabetes natalie itus with hyperglycemia, with long-term current use of insulin ([facility]) Start: 05-14-2024 Influenza vaccination Influenza Vacc ine (#1) [facility] Start: 06-19-2023 Pneumococcal Vaccine : 65+ Years (2 of 2 - PCV) Pneumococcal Vaccine: 65+ Years (2 of 2 - PCV) [facility] Start: 03-09-2018 Screening for malignant neoplasm of breast Mammogram [facility] Start: 1955 Screening for malignant neoplasm of colon [facility] Immunizations Immunization Date Immunization Notes Care Provider Fa cility 06-03-2024 influenza virus vacc ine, unspecified formulation Lety Rothman MD Work Phone: [facility] 01-21-2024 zoster vaccine recombinant A hmad Briana GARCIA Work Phone: [facility] 06-16-2023 ABRYSVO - Respirator y syncytial virus (RSV), vaccine, bivalent, protein subunit RSV prefusion F, diluent reconstituted, 0.5 mL, PF Lety Rothman MD Work Phone: [facility] 06-16-2023 Influenza, High-dose Seasonal, Quadrivalent, Preservative Free Lety Rothman MD Work Phone: [facility] 06-16-2023 SARS-COV-2 (COVID-19 ) vaccine, mRNA, spike protein, LNP, PF, 50 mcg/0.5 mL Lety Rothman MD Work Phone: [facility] 06-16-2023 zoster vaccine recombinant A hmad Briana GARCIA Work Phone: [facility] 06-19-2022 Influenza, High-dose Seasonal, Quadrivalent, Preservative Free Lety Rothman MD Work Phone: [facility] 06-19-2022 pneumococcal polysaccharide vaccine, 23 valent Lety Rothman MD Work Phone: [facility] 06-19-2022 SARS-COV-2 (COVID-19 ) vaccine, mRNA, spike protein, LNP, bivalent, preservative free, 30 mcg/0.3 mL dose, emiliano-sucrose formulation Lety Rothman MD Work Phone: [facility] 05-07-2022 diphtheria, tetanus toxoids and pertussis vaccine Lety Rothman MD Work Phone: [facility] 09-02-2021 Pfizer Purple Cap SARS-CoV-2 Vaccination Lety Rothman MD Work Phone: [facility] 12-10-2020 Pfizer Purple Cap SARS-CoV-2 Vaccination Lety Rothman MD Work Phone: [facility] 11-18-2020 Pfizer Purple Cap SARS-CoV-2 Vaccination Lety Rothman MD Work Phone: [facility] 01-06-2019 tetanus toxoid, redu holley diphtheria toxoid, and acellular pertussis vaccine, adsorbed Lety Rothman MD Work Phone: [facility] 06-29-2017 influenza, injectabl e, quadrivalent, preservative free Lety Rothman MD Work Phone: [facility] 06-17-2015 influenza, seasonal, injectable, preservative free Lety Rothman MD Work Phone: [facility] 09-10-2014 influenza, injectabl e, quadrivalent, contains preservative Lety Rothman MD Work Phone: [facility] 07-22-2010 influenza, seasonal, injectable Lety Rothman MD Work Phone: [facility] Payers Date Payer Category Payer Medicare (Managed Care) [facility] MEDICARE [id number] 2024 Medicare [id number] 2022 Medicare [employer] MED[employer]AGE [employer] MEDICARE [id number] 2022-Present [address] [address] [place] [address] [id number] 2020 Medicare [id number] 1959 Medicare [id number] 1953 Unknown [id number] 1953 Unknown [id number]. 2.593 1953 Unknown [id number] [id number]. 2.593 1953 Unknown [id number] [id number]. 2.593 1953 Unknown [id number] 2.16.840.1.299371.3.579. 2.593 1953 Unknown [id number] [id number]. 2.593 1953 Unknown [id number] 2.16.840.1.394991.3.579. 2.593 1953 Unknown [id number] [id number]. 2.593 1953 Unknown [id number] [id number]. 2.727 1953 Unknown [id number] 2.16.840.1.148921.3.579. 2.1259 1953 Unknown [id number] [id number]. 2.1259 1953 Unknown [id number] [id number]. 2.1259 1953 Unknown [id number]. 2.1259 Social History Date Type Detail Facility Start: 04-20-2023 Tobacco smoking status PRIS Ex-smoke r [facility] History of tobacco use Current smoker [facility] History of tobacco use Cigarette Smoker [facility] History of tobacco use Passive smoker [facility] Start: 05-29-2024 End: 11-16-2024 Alcoholic beverage intake [facility]-drinker (finding) [facility] Start: 04-18-2024 End: 11-16-2024 History of Social function [facility] Start: 04-18-2024 End: 11-16-2024 Tobacco use panel [facility] Start: 04-20-2023 Tobacco Comment Last smoked: 1-3 mon ths [facility] Start: 04-20-2023 Alcohol Comment caffeine: 2-3 cups/d ay [facility] Start: 1955 Sex assigned at Not [...] kramer instead of ronni my mistake sorry! [facility] 12-25-2024 Miscellaneous Notes Formattin g of this note might be different from the original. Please send zofran to Marce kramer instead of ronni my mistake sorry! documented in this encounter [facility] 12-25-2024 Telephone encount er Note Pt needs zofran for nausea, accidentally took .5 instead of .25 for first dose of ozempic. Please send to Marce Rudolph. Thank you! [facility] 12-25-2024 Miscellaneous Notes Formattin g of this note might be different from the original. Pt needs zofran for nausea, accidentally took .5 instead of .25 for first dose of ozempic. Please send to Marce Rudolph. Thank you! documented in this encounter [facility] 12-12-2024 History of Presen t illness Narrative [...] 1 mg, Subcutaneous, Once as needed HYDROcodone-acetaminophen (Kinta) 7.5-325 MG tablet No dose, route, or [...] 3 times daily with meals nystatin (Mycostatin) [id number] UNIT/GM powder 2-3 application , As needed [...] Allergic rhinitis Anxiety Bronchitis Chest pain Depression ([facility]) Dermatophytosis Diabetes ([facility]) Dietary counseling and surveillance Dyspnea and respiratory abnormality HTN (hypertension) ([facility]) Hyperlipidemia ([facility]) Hyponatremia Insomnia Keratomycosis nigricans palmaris terminal carman (current) use of insulin ([facility]) Nonrheumatic aortic (valve) stenosis Otogenic pain PTSD (post-traumatic stress disorder) ([facility]) Stroke ([facility]) tremor in right hand Type 2 diabetes mellitus with hyperglycemia ([facility]) Vitamin D deficiency Wheelchair dependent [...] hyperglycemia, with long-term current use of insulin ([facility]) - POCT glucose manually resulted [...] Encounter for dietary consultation Insulin long-term use ([facility]) Vitamin D deficiency Hyperlipemia, mixed ([facility]) Hypoglycemia Follow up in about 4 months (around 04/22/2025). documented in this encounter [facility] 06-14-2024 History of Presen t illness Narrative [...] 300 mg, Oral, 3 times daily HYDROcodone-acetaminophen (Kinta) 7.5-325 MG tablet No dose, route, or [...] 3 times daily with meals nystatin (Mycostatin) [id number] UNIT/GM powder 2-3 application , Topical, As [...] Allergic rhinitis Anxiety Bronchitis Chest pain Depression ([facility]) Dermatophytosis Diabetes ([facility]) Dietary counseling and surveillance Dyspnea and respiratory abnormality HTN (hypertension) ([facility]) Hyperlipidemia ([facility]) Hyponatremia Insomnia Keratomycosis nigricans palmaris terminal carman (current) use of insulin ([facility]) Nonrheumatic aortic (valve) stenosis Otogenic pain PTSD (post-traumatic stress disorder) ([facility]) Stroke ([facility]) tremor in right hand Type 2 diabetes mellitus with hyperglycemia ([facility]) Vitamin D deficiency Wheelchair dependent [...] hyperglycemia, with long-term current use of insulin ([facility]) - POCT glucose manually resulted [...] once daily all prescriptions sent Primary hypertension ([facility]) Encounter for dietary consultation Insulin long-term use (CMS/HCC) Vitamin D deficiency Hyperlipemia, mixed (CMS/HCC) Hypoglycemia Follow up in about 3 months (around 09/14/2024). documented in this encounter [facility] 05-07-2022 Note PROCEDURE: XR SHOULD ER LT [...] authenticated by: TEJAS CHRISTOPHER Date: 2022-05-07 14:47 [facility] 05-07-2022 Note PROCEDURE: XR SHOULD ER [...] authenticated by: TEJAS CHRISTOPHER Date: 2022-05-07 14:47 [facility] Evaluation note Diagnosis Hypoglycemia- Primary Hypoglycemia, unspecified Type 2 diabetes mellitus with hyperglycemia, with long-term current use of insulin (CMS/HCC) Primary hypertension (CMS/HCC) Unspecified essential hypertension Encounter for dietary consultation Insulin long-term use (CMS/HCC) Encounter for long-term (current) use of insulin Vitamin D deficiency Hyperlipemia, mixed (CMS/HCC) Mixed hyperlipidemia documented in this encounter [facility]* Diagnosis Contusion of left foot, initial encounter- Primary Diabetes mellitus due to underlying condition with diabetic polyneuropathy, without long-term current use of insulin ([facility]) Pain due to onychomycosis of toenails of both feet [facility] Diagnosis Type 2 diabetes mellitus with hyperglycemia, with long-term current use of insulin ([facility])- Primary Primary hypertension ([facility]) Unspecified essential hypertension Encounter for dietary consultation Insulin long-term use ([facility] Encounter for long-term (current) use of insulin Vitamin D deficiency Hyperlipemia, mixed ([facility]) Mixed hyperlipidemia Hypoglycemia Hypoglycemia, unspecified documented [facility] Diagnosis Type 2 diabetes mellitus with hyperglycemia, with long-term current use of insulin ([facility])- Primary documented in this encounter [facility]* Diagnosis Type 2 diabetes mellitus with hyperglycemia, with long-term current use of insulin ([facility]) documented in this encounter [facility] [...] Allergic rhinitis Anxiety Bronchitis Chest pain Depression ([facility]) Dermatophytosis Diabetes ([facility]) Dietary counseling and surveillance Dyspnea and respiratory abnormality HTN (hypertension) ([facility]) Hyperlipidemia ([facility]) Hyponatremia Insomnia Keratomycosis nigricans palmaris terminal carman (current) use of insulin ([facility]) Nonrheumatic aortic (valve) stenosis Otogenic pain PTSD (post-traumatic stress disorder) ([facility]/HCC) Stroke ([facility]) tremor in right hand Type 2 diabetes mellitus with hyperglycemia ([facility]) Vitamin D deficiency Wheelchair dependent [...] sugar, Disp: 0.2 Unspecified, Rfl: 1 HYDROcodone-acetaminophen (Kinta) 7.5-325 MG tablet, , Disp: , Rfl: [...] with meals., Disp: , Rfl: nystatin (Mycostatin) [id number] UNIT/GM powder, Apply 2-3 application topically if [...] Insecurity: No Food Insecurity (06/07/2023) Received from [facility], [facility] Hunger Screening Within the past 12 months [...] Unknown (11/04/2023) Received from [facility], [facility] [place] [employer] Fear of [...] and negative PT pedal pulses NEURO: 5.07 [place] monofilament test diminished to digits and forefoot bilaterally 125Hz tuning fork diminished to 1st MPJ bilaterally ORTHO: Positive pain on palpation to toenails of the left 1,2,3,4,5 toes and right 1,2,3,4,5 toes ASSESSMENT 1. Contusion of left foot, initial encounter 2. Diabetes mellitus due to underlying condition with diabetic polyneuropathy, without long-term current use of insulin ([facility]) 3. Pain due to onychomycosis [...] DATE CREATED AUTHOR AUTHOR'S ORGANIZ ATION 11/24/2024 [facility] DATE CREATED AUTHOR AUTHOR'S ORGANIZ ATION 12/23/2024 [facility] EPIC Care Teams (unrecognized sec tion and content) Medical Transcription Radiology Relationship Specialty Start Date End Date Yessica Sheffield MD [address] [place] [address] PCP - General Pediatrics 04/26/23 Medical Transcription Radiology Relationship Specialty Start Date End Date Yessica Sheffield MD [address] [place] [address] PCP - General Pediatrics 04/26/23 Medical Transcription Radiology Relationship Specialty Start Date End Date Yessica Sheffield MD [address] [place] [address] PCP - General Pediatrics 04/26/23 Medical Transcription Radiology Relationship Specialty Start Date End Date Yessica Sheffield MD [address] [place] [address] PCP - General Pediatrics 04/26/23 Medical Transcription Radiology Relationship Specialty Start Date End Date Yessica Sheffield [facility] [address] [place] [address] PCP - General Pediatrics 04/26/23 Medical Transcription Radiology Relationship Specialty Start Date End Date Yessica Sheffield MD [address] [place] [address] PCP - General Pediatrics 04/26/23 Medical Transcription Radiology Relationship Specialty Start Date End Date Yessica Sheffield MD [address] [place] [address] PCP - General Pediatrics 04/26/23 Medical Transcription Radiology Relationship Specialty Start Date End Date Yessica Sheffield MD [address] [place], [place] [id number] PCP - General Pediatrics 04/26/23 Reason for [...] BE BASED ON THE PRIMARY CLINICAL RECORDS. [facility]. provides no warranty or guarantee of the accuracy or completeness of information in this document.
--- OUTSIDE RECORDS SUMMARY | 2025-03-14 01:25 | XMS_ITS | Encounter Summary ---
Author Organization [employer] Sys tem Address [facility] [place][id number] [address] [place] [address] Care Team Providers Care Roofing Contractor Name Role Phone Alexa Martinez FERRYBOAT PILOTSTERLING Primary Care Provider + Encounter Details Date Type Department Care Team (Late st Contact Info) Description 01/24/2021 Orders Only [facility] [address] [place] [address] [place] [address] External, Scanning Provider Social History Tobacco Use Types Packs/Day Years [...] on file documented as of this encounter Procedures Procedure Name Priority Date/Time Associated Diagnosis Comments MULTIPLE LABS Routine 05/24/2020 MULTIPLE LABS Routine 11/22/2019 LIPID PROFILE Routine 11/22/2019 documented in this encounter Results * Multiple labs (05/24/2020) us Scanning Provider External [place] [facility] Final Result MANUALLY TRANSCRIBED RESULTS * Lipid profile (11/22/2019) External Cholesterol 174 MANUALLY TRANSCRIBED RESULTS External Cholesterol:Hdl 2.3 MANUALLY TRANSCRIBED RESULTS External Hdl Cholesterol 76 MANUALLY TRANSCRIBED RESULTS External Ldl (Calc) 78 MANUALLY TRANSCRIBED RESULTS External Triglycerides 100 MANUALLY TRANSCRIBED RESULTS External Very Low Lipoprotein 20 MANUALLY TRANSCRIBED RESULTS us Scanning Provider External LAB BLOOD ORDERABLES Edited Result - Final Performing Organization Address City/[facility]/ZIP Co de Phone Number MANUALLY TRANSCRIBED RESULTS * Multiple labs (11/22/2019) us Scanning Provider External [place] [facility] Final Result MANUALLY TRANSCRIBED RESULTS documented in this encounter Visit Diagnoses Not on filedocumented in this encounter Care Teams Roofing Contractor Relationship Specialty Start Date End Date Alexa Martinez APRN-CARLOS ENRIQUE [address] [place], [place] [id number] PCP - General Nurse Practitioner 11/13/24 documented as of this encounter
--- OUTSIDE RECORDS SUMMARY | 2025-03-14 01:25 | XMS_ITS | Encounter Summary ---
Author Organization [employer] Address [facility] [place]-[id number] [address] [place] [address] Care Team Providers Care Modeling Teacher Name Role Phone Juan Alexa WISEN-OIL AND GAS LEASE PUMPER Primary Care Provider + Encounter Details Date Type Department Care Team (Late st Contact Info) Description 09/09/2022 Telephone [facility] [address] [address] Leidy Porter RN Social History Tobacco Use Types Packs/Day [...] encounter Miscellaneous Notes * Telephone Encounter - Leidy Porter RN - 09/09/2022 2:12 PM EST Last OV 04/10/22. slm documented in this encounter Plan of Treatment Not on file documented as of this encounter Visit Diagnoses Not on filedocumented in this encounter Care Teams Modeling Teacher Relationship Specialty Start Date End Date Alexa Martinez APRN-CNP [facility] [place] [address] PCP - General Nurse Practitioner 11/13/24 documented as of this encounter
--- NOTE | 2025-03-14 01:59 | ED.EXTPRO1 ---
HPI - Extremity Problem General Chief complaint: Extremity Problem, Nontraumatic Stated complaint: LOWER EXTREMITY PAIN, LEFT Time Seen by Provider: 03/14/25 01:25 Mode of arrival: Wheelchair History of Present Illness HPI Narrative: Left foot pain. This 69-year-old female with a history of diabetes presents for evaluation of severe left foot pain. Pain is on the top of her foot. She denies any injury. There is no redness swelling lymphangitic streaking or sign of acute gout. I see from her history she has a history of diabetic neuropathy. She does not have any calf pain or swelling. She would not let me touch her foot to examine it. She is demanding a shot of pain medication and crying. OARRS was reviewed and she apepars to be in pain mgmt receiving monthly Rx for gabapentin Related Data Home Medications ?Medication ?Instructions ?Recorded ?Confirmed albuterol sulfate 90 mcg/actuation 2 puff inhalation Q4H PRN 06/28/23 01/01/25 aerosol inhaler shortness of breath or wheezing atorvastatin 80 mg tablet 80 mg PO DAILY 06/28/23 01/01/25 bupropion HCl 150 mg tablet,12 hr 150 mg PO DAILY 06/28/23 01/01/25 sustained-release buspirone 15 mg tablet 15 mg PO BID 06/28/23 01/02/25 dapagliflozin propanediol 10 mg 10 mg PO DAILY 06/28/23 01/01/25 tablet (Farxiga) fluoxetine 40 mg capsule 40 mg PO DAILY 06/28/23 01/01/25 insulin glargine 100 unit/mL (3 30 unit subcut BEDTIME 06/28/23 01/01/25 mL) subcutaneous pen (Lantus Solostar U-100 Insulin) metoprolol succinate 50 mg 50 mg PO DAILY 06/28/23 01/01/25 tablet,extended release 24 hr nitroglycerin 0.4 mg sublingual 0.4 mg sublingual Q5M PRN chest 06/28/23 01/01/25 tablet pain pantoprazole 40 mg tablet,delayed 40 mg PO DAILY 06/28/23 01/01/25 release prazosin 2 mg capsule 2 mg PO .q hs 06/28/23 01/01/25 trazodone 50 mg tablet 50 mg PO .q hs PRN sleep 01/01/25 01/02/25 gabapentin 300 mg capsule 300 mg PO BID 01/02/25 01/02/25 insulin lispro 100 unit/mL 10 unit subcut TIDWM 01/02/25 01/02/25 subcutaneous pen lisinopril 20 mg tablet 20 mg PO DAILY 01/02/25 01/02/25 semaglutide 0.25 mg or 0.5 mg (2 0.5 mg subcut QWEEK 01/02/25 01/02/25 mg/3 mL) subcutaneous pen injector (Ozempic) Previous Rx's ?Medication ?Instructions ?Recorded meclizine 25 mg tablet 25 mg PO TID PRN dizziness #30 tabs 07/30/23 ondansetron 4 mg disintegrating 4 mg PO Q6H PRN nausea and 07/30/23 tablet vomiting #20 tabs aspirin 81 mg capsule 81 mg PO DAILY #30 caps 01/02/25 ciprofloxacin HCl 500 mg tablet 500 mg PO Q12H #20 tabs 01/02/25 (Cipro) isosorbide mononitrate 30 mg 60 mg (2 x 30 mg) PO DAILY #60 tabs 01/02/25 tablet,extended release 24 hr metronidazole 500 mg tablet 500 mg PO Q8H #30 tabs 01/02/25 Allergies Allergy/AdvReac Type Severity Reaction Status Date / Time No Known Drug Allergies Allergy Verified 03/14/25 01:31 Review of Systems ROS Status of ROS 10 or more systems reviewed and unremarkable except as noted in history and below [facility] Medical History (Updated 03/14/25 @ 02:48 by Sailaja Tapia MD) Hyperglycemia ?R73.9 - Hyperglycemia, unspecified (ICD-10) Acute UTI ?N39.0 - Urinary tract infection, site not specified (ICD-10) Elevated troponin ?R79.89 - Other specified abnormal findings of blood chemistry (ICD-10) Nausea, vomiting, and diarrhea ?R11.2 - Nausea with vomiting, unspecified (ICD-10) ?R19.7 - Diarrhea, unspecified (ICD-10) Social History Smoking status: Never smoker Highest level of school completed/degree received: high school graduate Little interest or pleasure in doing things: not at all Feeling down, depressed, or hopeless: not at all Exam Narrative Exam Narrative: Vital signs and Nursing Notes reviewed: Patient is afebrile with a normal pulse, normal blood pressure, she is not hypoxic with pulse ox of 97% on room air General: Awake, alert, oriented, uncomfortable appearing female due to left foot pain, no respiratory distress HEENT: Normocephalic atraumatic, mucous membranes are moist and pink, eyes are clear Chest: Lungs are clear to auscultation with good air entry, there is no wheezing rhonchi or rales appreciated no accessory muscle use, patient is speaking in complete sentences-no chest wall tenderness to palpation CVS: Regular rate and rhythm S1-S2, no murmurs rubs or gallops, pulses are brisk and equal bilaterally Extremities: Moving all extremities, patient refuses to let me touch her foot. She has chronic hypertrophic toenails. Both feet are the same color with no sign of cellulitis or lymphangitic streaking. No sign of injury. Skin: Normal in appearance without rash,pallor, petechiae or purpura Neuro: No focal deficits Constitutional Vital Signs, click to edit/add: Last Vital Signs Temp 98.1 F 03/14/25 01:25 Pulse 60 03/14/25 01:25 Resp 18 03/14/25 01:25 BP 126/61 03/14/25 01:25 Pulse Ox 97 03/14/25 01:25 O2 Del Method Room Air 03/14/25 01:25 Course Vital Signs Vital signs: Vital Signs Temperature 98.1 F 03/14/25 01:25 Pulse Rate 60 03/14/25 01:25 Respiratory Rate 18 03/14/25 01:25 Blood Pressure 126/61 03/14/25 01:25 Pulse Oximetry 97 03/14/25 01:25 Oxygen Delivery Method Room Air 03/14/25 01:25 Temperature 98.1 F 03/14/25 01:25 Pulse Rate 60 03/14/25 01:25 Respiratory Rate 18 03/14/25 01:25 Blood Pressure 126/61 03/14/25 01:25 Pulse Oximetry 97 03/14/25 01:25 Oxygen Delivery Method Room Air 03/14/25 01:25 MDM - Extremity (Nontraumatic) MDM Narrative Medical decision making narrative: This 69-year-old female history of diabetes and diabetic neuropathy presents for evaluation of severe left foot pain that started several hours prior to arrival. She has been on gabapentin in the past. She is concerned that she has gout however there is no redness or swelling of the foot. Is not warm. Initially she refused to let me touch it and was jumping around on the stretcher crying out in pain. She was given an IM dose of morphine and subsequently put on her sock and shoe. X-ray of the foot was reviewed by myself. There is no fracture, dislocation or foreign bodies appreciated. There is some degree of degenerative changes. On reevaluation the patient appeared more comfortable but stated she was still in pain. She did allow me to evaluate her foot then. Her foot is warm, pink with normal cap refill. Dorsalis pedis and posterior tibialis pulses are brisk and equal. Achilles is intact. There is no tenderness over her medial lateral malleolus and there is no calf swelling or tenderness noted. Her last gabapentin prescription was in October 2024 when she received 240 300mg gabapentin. I explained to her that in light of her being in pain management even in the recent past I was not able to prescribe her pain medication but she will be sent home with 2 Percocet and was instructed to follow-up as soon as possible with her family physician for further evaluation and management. Discharge Plan Discharge Chief Complaint: Extremity Problem, Nontraumatic Clinical Impression: Neuropathic pain of foot Patient Disposition: Home, Self-Care Time of Disposition Decision: 02:52 Condition: Good Prescriptions / Home Meds: No Action albuterol sulfate 90 mcg/actuation HFA aerosol inhaler 2 puff INHALATION Q4H PRN (Reason: shortness of breath or wheezing) atorvastatin 80 mg tablet 80 mg PO DAILY bupropion HCl 150 mg tablet sustained-release 12 hr 150 mg PO DAILY buspirone 15 mg tablet 15 mg PO BID dapagliflozin propanediol [Farxiga] 10 mg tablet 10 mg PO DAILY fluoxetine 40 mg capsule 40 mg PO DAILY insulin glargine [Lantus Solostar U-100 Insulin] 100 unit/mL (3 mL) insulin pen 30 unit SUBCUT BEDTIME metoprolol succinate 50 mg tablet extended release 24 hr 50 mg PO DAILY nitroglycerin 0.4 mg tablet, sublingual 0.4 mg sublingual Q5M PRN (Reason: chest pain) pantoprazole 40 mg tablet,delayed release (DR/EC) 40 mg PO DAILY prazosin 2 mg capsule 2 mg PO .q hs ondansetron 4 mg tablet,disintegrating 4 mg PO Q6H PRN (Reason: nausea and vomiting) Qty: 20 0RF meclizine 25 mg tablet 25 mg PO TID PRN (Reason: dizziness) Qty: 30 0RF trazodone 50 mg tablet 50 mg PO .q hs PRN (Reason: sleep) insulin lispro 100 unit/mL insulin pen 10 unit SUBCUT TIDWM Ozempic 0.25 mg or 0.5 mg (2 mg/3 mL) pen injector 0.5 mg SUBCUT QWEEK gabapentin 300 mg capsule 300 mg PO BID lisinopril 20 mg tablet 20 mg PO DAILY ciprofloxacin HCl [Cipro] 500 mg tablet 500 mg PO Q12H Qty: 20 0RF metronidazole 500 mg tablet 500 mg PO Q8H Qty: 30 0RF aspirin 81 mg capsule 81 mg PO DAILY Qty: 30 11RF isosorbide mononitrate 30 mg Tablet Extended Release 24 Hr 60 mg PO DAILY Qty: 60 0RF Print Language: Marshallese Instructions: Diabetic Neuropathy (ED) Referrals: Roby Sheldon MD [Primary Care Provider, Family Practice] - 1 week
[2025-03-14] MEDS: ONDANSETRON 4 MG RAPDIS TABLET SL (02:18)
[2025-03-14] MEDS: MORPHINE SULFATE 4 MG/ML VIAL IM (02:18)
[2025-03-14] MEDS: OXYCODONE HCL/ACETAMINOPHEN 5MG/325MG PO (03:03)
== END 2025-03-14 03:16 | disposition home or self-care (01) ==
PROVIDERS: Emergency Provider Emergency Medicine; PCP Family Medicine
DX: E11.40 Type 2 diabetes mellitus with diabetic neuropathy, unspecified (principal); M79.672 Pain in left foot; Z79.4 Long term (current) use of insulin; Z79.85 Long-term (current) use of injectable non-insulin antidiabetic drugs
CPT/HCPCS: 73630; 99284; J2270; Q0162

== ENCOUNTER 2025-06-14 09:46 | Emergency (ER) | payer MEDICARE, SELFPAY ==
--- OUTSIDE RECORDS SUMMARY | 2025-04-05 11:27 | XMS_ITS ---
Author Name Auto Generated Organization OHIP Care Team Providers Care Care Management Specialist Name Role Phone MICHAEL MINOR Attending Unavailable JEF ROTHMAN Attending Unavailable JEF ROTHMAN Referring Unavailable MICHAEL MINOR Attending Unavailable Dav Cardenas Attending Unavailable PROBLEMS No Problem Records Found PROCEDURES No Procedure Records Found RESULTS PROVIDER LETTER Observed: 11/15/2024 2:18 PM Status: F Source: [facility] Provider Letter November 15, 2024 [address] [place] [address] : 1955 Dear _ , We have [...] attention to this matter. Sincerely, Family [facility] [place] [address] [place] [address] Ext. 9738 ALLERGIES No Allergies Records Found ENCOUNTERS ADMIT/DISCHARGE ACCOUNT NUMBER ADMITTING ENCOUNTER CLASS LOCATION SOURCE 04/05/2025/ 5 [id number] Ambulatory Building:NOM S CI POD [facility] 12/21/2024/ 5 [id number] Ambulatory Building:NOM S SH ENDO [facility] 11/21/2024/ 5 [id number] Ambulatory FT MaryBuil ding:FT [facility] 11/16/2024/ 5 [id number] Ambulatory Building:NOM S CI POD [facility] 10/27/2024 [id number] Ambulatory FT MaryBuil ding:FT [facility] PAYERS ENCOUNTER GUARANTOR PAYER SUBSCRIBER SOURCE 04/05/2025 DUYEN ANGEL: [address]: (HP) Primary Insurance:[facility] MEDICAREPolicy Number: [id number] Date:2024-11-11 DUYEN ANGEL: [id number] [place] [address] Medical Specialists [facility] 12/21/2024 DUYEN ANGEL: [address]: (HP) Primary Insurance:[facility] MEDICAREPolicy Number: [id number] Date:2024-11-11 DUYEN ANGEL: [id number] [facility] 11/21/2024 DUYEN ANGEL: [address]: ~([phone] (HP) Primary Insurance:MEDICAREPol icy Number: [id number] Date:[id number], [place] [address]MA: DUYEN ROOT [facility] 11/21/2024 Secondary Insurance:HUMANAPolic y Number: [id number] Date:[id number] [place] [address]TB: DUYEN ROOT [facility] 11/16/2024 DUYEN ANGEL: [address] [address]Iuk: () Primary Insurance:[facility] MEDICAREPolicy Number: [id number] Date:2024-11-11 DUYEN ANGEL: [id number] [address] [address] [facility] EPIC
--- OUTSIDE RECORDS SUMMARY | 2025-04-11 06:30 | XMS_ITS ---
Author Organization [facility] [place] Address [address] [place] [address] Care Team Providers Care Bullet Slug Casting Machine Operator Name Role Phone Uhce Sheldon Primary Care Provider REASON FOR VISIT 3mon Encounters Encounter Location Date Provider Diagnosis [facility] [address] [place] [address] 04/11/2025 Uche Sheldon Plan Of Treatment No Information Progress Notes * Carleen GODOYKymB:[birth year] (69 yo F)Acc No.[id number]:04/11/2025 UNLOCKED PROGRESS NOTE Progress Note Patient: Morelia CHEUNG Provider: Lay Sheldon MD (TTC) :1955 A ge:69 Y S ex:Female Date:04/11/2025 Address:[address] [place] [address], [address], [facility] Subjective: * Chief Complaints: * 1 . 3mon. * Medical History: Objective: * Vitals: Assessment: Plan: * Treatment: * * Electronic signature of Uche Sheldon MD, [id number] on 06/14/2025 at 09:59 AM EDT Sign off status: Pending Visit Status: C ANC (Cancelled) * Provider: Lay Sheldon MD (TTC) Date: 0 04/11/2025 Generated for Printi ng/Faleslig/eTransmitting on: 1 09:59 AM EDT
[2025-06-14 09:55] VITALS: BP 143/72; PULSE 63; TEMP 36.7; O2SAT 99; BMI 28.4
--- OUTSIDE RECORDS SUMMARY | 2025-06-14 09:55 | XMS_ITS | Encounter Summary ---
Author Organization [employer] Address [id number] [address] [place] [address] Care Team Providers Care Aerobics Instructor Name Role Phone Alexa Martinez CONTACT FINGER ASSEMBLER-PIN GAME MACHINE INSPECTOR Primary Care Provider + Reason for Visit * Reason Comments Med Refill Encounter Details Date Type Department Care Team (Late st Contact Info) Description 03/28/2021 Refill [facility] [address] [address] [place] [address] Georgina Osorio, CONTACT FINGER ASSEMBLER-PIN GAME MACHINE INSPECTOR [address] [place] [address] Med Refill Social History Tobacco Use Types [...] encounter Miscellaneous Notes * Telephone Encounter - Paty Akers RN - 03/28/2021 10:55 AM EDT Pt has canceled last several appts. Pt was notified of need for labs and has not done so yet. documented in this encounter Plan of Treatment Not on file documented as of this encounter Visit Diagnoses Not on filedocumented in this encounter Care Teams Aerobics Instructor Relationship Specialty Start Date End Date Alexa Martinez APRN-CARLOS ENRIQUE [address] [place] [address] PCP - General Nurse Practitioner 11/13/24 documented as of this encounter
--- OUTSIDE RECORDS SUMMARY | 2025-06-14 09:56 | XMS_ITS | Encounter Summary ---
Author Organization [employer] Address [facility]-[id number] [address] [place] [address] Care Team Providers Care Agile Scrum Coach Name Role Phone Alexa Martinez APRN-CARLOS ENRIQUE Primary Care Provider + Reason for Visit * Reason Comments Med Refill Encounter Details Date Type Department Care Team (Late st Contact Info) Description 04/04/2021 Refill [facility] [address] [facility] [address] [place] [address] Georgina Osorio, COMMERCIAL LINES MANAGER-AIR BATTLE MANAGER [address] [place] [address] Med Refill Social History Tobacco Use Types [...] on filedocumented in this encounter Care Teams Agile Scrum Coach Relationship Specialty Start Date End Date Alexa Martinez APRN-CNP [address] [place] [address] PCP - General Nurse Practitioner 11/13/24 documented as of this encounter
--- OUTSIDE RECORDS SUMMARY | 2025-06-14 09:57 | XMS_ITS | Clinical Summary ---
Author Organization [employer] Address [facility] [place]-[id number] [address] [place] [address] Care Team Providers Care Croze Cutter Helper Name Role Phone Alexa Martinez FRIDA-CARLOS ENRIQUE [...] of 2) 2003 Fall Risk Screening 2018 Adult BMI Screening 06/07/2024 06/07/2023 Tobacco Screening 06/07/2024 06/07/2023 COVID-19 Vaccine (2024-2 6 season) 2025 06/19/2022, 09/02/2021, 12/10/2020, Additional history exists Influenza Vaccine 05/14/2025 06/19/2022, , 06/17/2015, Additional history exists DTaP,Tdap and Td Vaccines (3 - Td or Tdap) 05/07/2032 05/07/2022, 01/06/2019 Medical Devices Not on file Insurance [address] [place] [address] [employer] MEDICARE Advance Directives * Full Code (Latest Code Status on File) Date Activated Date Inactivated Comments 01/06/2019 3:25 PM 01/07/2019 1:37 PM Care Teams Croze Cutter Helper Relationship Specialty Start Date End Date Alexa Martinez APRN-CARLOS ENRIQUE [address] [place] [address] PCP - General Nurse Practitioner 11/13/24
--- OUTSIDE RECORDS SUMMARY | 2025-06-14 09:57 | XMS_ITS | Encounter Summary ---
Author Organization [employer] Address [facility]-[id number] [address] [place] [address] Care Team Providers Care Carpet Installer Name Role Phone Alexa Martinez Primary Care Provider + Reason for Visit * Reason Comments Med Refill Encounter Details Date Type Department Care Team (Late st Contact Info) Description 12/05/2021 Refill [facility] [address] [address] Jostin Sadler PA-C [address] [place], [place] [id number] Med Refill Social History Tobacco Use Types [...] on filedocumented in this encounter Care Teams Carpet Installer Relationship Specialty Start Date End Date Alexa Martinez APRN-CNP [address] [place], [place] [id number] PCP - General Nurse Practitioner 11/13/24 documented as of this encounter
--- OUTSIDE RECORDS SUMMARY | 2025-06-14 09:57 | XMS_ITS | Encounter Summary ---
Author Organization [facility] Address [facility][id number] [address] [place] [address] Care Team Providers Care Crayon Sawyer Name Role Phone Alexa Martinez APRN-CARLOS ENRIQUE Primary Care Provider + Encounter Details Date Type Department Care Team (Late st Contact Info) Description 07/06/2021 Documentation [facility] Recreation Director Sign In [address] [facility] [place] [id number] Patti Hernandez APRN-CNP [address] [facility] Prov left org 12/2024 [place] [address] Social History Tobacco Use Types Packs/Day Years [...] on filedocumented in this encounter Care Teams Crayon Sawyer Relationship Specialty Start Date End Date Alexa Martinez APRN-CNP [address] [place] [address] PCP - General Nurse Practitioner 11/13/24 documented as of this encounter
--- OUTSIDE RECORDS SUMMARY | 2025-06-14 09:57 | XMS_ITS | Encounter Summary ---
Author Organization [employer] Address [facility]-[id number] [address] [place] [address] Care Team Providers Care Blocker And Sewer Name Role Phone Alexa Martinez APRN-CARLOS ENRIQUE Primary Care Provider + Reason for Visit * Reason Comments Med Refill Encounter Details Date Type Department Care Team (Late st Contact Info) Description 06/20/2021 Refill [facility] [address] [facility] 1 [place] [address] Berta Grey, MEGHANN [address] [place] [address] Med Refill Social History Tobacco Use Types [...] on filedocumented in this encounter Care Teams Blocker And Sewer Relationship Specialty Start Date End Date Alexa Martinez APRN-CNP [address] [place], [place] [id number] PCP - General Nurse Practitioner 11/13/24 documented as of this encounter
--- OUTSIDE RECORDS SUMMARY | 2025-06-14 09:57 | XMS_ITS | Encounter Summary ---
Author Organization [employer] Sys [employer] Address [facility][id number] [address] [place] [address] Care Team Providers Care Service Person Name Role Phone Alexa Martinez APRN-CARLOS ENRIQUE Primary Care Provider + Encounter Details Date Type Department Care Team (Late st Contact Info) Description 07/06/2021 Telephone [facility] [address] [place] [address] Patti Hernandez APRN-PRIVATE BRANCH EXCHANGE OPERATOR [address] [facility] left org 12/2024 [place] [address] Social History Tobacco Use Types Packs/Day Years [...] on filedocumented in this encounter Care Teams Service Person Relationship Specialty Start Date End Date Alexa Martinez APRN-CNP [address] [place] [address] PCP - General Nurse Practitioner 11/13/24 documented as of this encounter
--- OUTSIDE RECORDS SUMMARY | 2025-06-14 09:57 | XMS_ITS | Encounter Summary ---
Author Organization [facility] [employer] [facility] tem Address [facility]-S81669 [address] [place] [address] Care Team Providers Care Breaker Machine Operator Name Role Phone Alexa Martinez Primary Care Provider + Encounter Details Date Type Department Care Team (Late st Contact Info) Description 05/21/2023 Telephone [facility] [address] [place] [address] Yudi Aguiar CNA Social History [...] on filedocumented in this encounter Care Teams Breaker Machine Operator Relationship Specialty Start Date End Date Alexa Martinez APRN-CNP [facility] [place] [address] PCP - General Nurse Practitioner 11/13/24 documented as of this encounter
--- OUTSIDE RECORDS SUMMARY | 2025-06-14 09:57 | XMS_ITS | Clinical Summary ---
Author Organization [facility] Healthcare Address [address] [place] [address] Care Team Providers Care Spray I Painter Name Role Phone Yessica Sheffield MD Primary Care Provider [phone] Allergies Active Allergy Reactions Criticality Noted Date [...] needed for bladder spasms. Active HYDROcodone-wang taminophen ([place]) 7.5-325 MG tablet Active FLUoxetine (PROzac) 10 [...] with meals. 08/31/20 23 Active nystatin (Mycostatin) 639516 UNIT/GM powder Apply 2-3 application topically if needed for rash 01/06/20 24 Active glucagon (Gvoke HypoPen 1-Pack) 1 MG/0.2ML injectionIndica tions:Hypoglyce yonas Inject 0.2 mL (1 mg) under the skin 1 (one) time if needed for low blood sugar 0.2 Unspecified 1 06/14/20 24 Active insulin glargine (Lantus SoloStar) 100 UNIT/ML penIndications: Type 2 diabetes mellitus with hyperglycemia, with long-term current use of insulin ([facility]) INJECT 20 UNITS UNDER THE SKIN EVERY MORNING 15 mL 3 09/11/20 24 Active semaglutide (Ozempic, 0.25 or 0.5 MG/DOSE,) 2 MG/1.5ML solution pen-injectorInd ications:Type 2 diabetes mellitus with hyperglycemia, with long-term current use of insulin (HCC) Inject 0.5 mg under the skin 1 (one) time per week 4.5 mL 1 12/22/19 25 Active insulin glargine (Lantus SoloStar) 100 UNIT/ML penIndications: Type 2 diabetes mellitus with hyperglycemia, with long-term current use of insulin ([facility]) Inject 30 Units under the skin at bedtime 30 mL 1 12/22/19 25 Active insulin lispro (HumaLOG KWIKPEN) 100 UNIT/ML injectionIndica tions:Type 2 diabetes mellitus with hyperglycemia, with long-term current use of insulin ([facility]) Inject 10 Units under the skin in the morning and 10 Units at noon and 10 Units in the evening. Inject with meals. 10.8 mL 1 12/22/19 25 025 Active dapagliflozin (Farxiga) 10 MGIndications:T ype 2 diabetes mellitus with hyperglycemia, with long-term current use of insulin ([facility]) Take 1 tablet (10 mg) by mouth Daily 90 tablet 1 12/22/19 25 025 Active Active Problems Problem Noted [...] Encounters Date Type Department Care Team Description 04/05/2025 11:50 AM EDT Office Visit [facility] [address] [facility] [address] [place] [address] Adan Pearson DPM Contusion of left foot, initial encounter (Primary Dx); Diabetes mellitus due to underlying condition with diabetic polyneuropathy, without long-term current use of insulin (HCC); Pain due to onychomycosis of toenails of both feet 04/05/2025 Bamboo flowsheet [facility] [address] [facility] [address] [place] [address] Adan Pearson DPM 04/05/2025 Travel from Last 3 Months Immunizations Immunization Administration [...] EDT Temperature - - Respiratory Rate 16 04/05/2025 11:32 AM EDT Oxygen Saturation 97% 12/21/2024 10:26 AM EDT Inhaled Oxygen Concentration - - Weight 93 kg (205 lb) 04/05/2025 11:32 AM EDT Height 177.8 cm (5' 10 ) 04/05/2025 11:32 AM EDT Body Mass Index 29.41 04/05/2025 11:32 AM EDT Plan of Treatment Upcoming Encounters Date Type Department Care Team ([facility] st Contact Info) Description 06/14/2025 10:40 AM EDT Office Visit [facility] [address] [facility] [address] [place] [address] Adan Pearson DPM [address] [facility] [address] [place] [address] 06/19/2025 1:10 PM EDT Office Visit [facility] [place] [facility] [address] [place] [phone] Lety Warren MD [address] [place] [address] Health Maintenance Due Date Last Done Comments CT Colonography 1955 Colonoscopy 1955 Colorectal Cancer Screening 1955 FIT-DNA 1955 FIT 1955 FOBT 1955 Sigmoidoscopy 1955 Mammogram 03/09/2018 03/09/2017 Pneumococcal Vaccine: 65+ Ye ars (2 of 2 - PCV) 06/19/2023 06/19/2022 Influenza Vaccine (#1) 2025 , 06/16/2023, 06/19/2022, Additional history exists Insurance [employer] MEDICARE Care Teams Spray I Painter Relationship Specialty Start Date End Date Yessica Sheffield MD [address] [place], [place] [phone] PCP - General Pediatrics 04/26/23
--- OUTSIDE RECORDS SUMMARY | 2025-06-14 09:57 | XMS_ITS | Encounter Summary ---
Author Organization [employer] Address [id number] [address] [place] [address] Care Team Providers Care Cylinder Sander Operator Name Role Phone Juan Alexa WISEN-INFORMATION STRATEGIST Primary Care Provider + Encounter Details Date Type Department Care Team (Late st Contact Info) Description 09/09/2022 Telephone [facility] [address] [address] Leidy Porter RN Social History [...] on filedocumented in this encounter Care Teams Cylinder Sander Operator Relationship Specialty Start Date End Date Alexa Martinez APRN-CNP [facility] [place] [address] PCP - General Nurse Practitioner 11/13/24 documented as of this encounter
--- OUTSIDE RECORDS SUMMARY | 2025-06-14 09:57 | XMS_ITS | Patient Health Record ---
Author Organization [facility] [place] Address [address] [place] [address] Care Team Providers Care Car Seat Upholsterer Name Role Phone Uche Valles Primary Care Provider Allergies No Known Allergies Results Component Value Reference Range Notes BNP Reviewed date:01/02/2025 02:23:43 PM Interpretation: Performing Lab: Notes/Report: Comment from ER lab please [facility] , NT Pro B Type Natriuretic Pept 653.0 <=900.0 pg /mL Performing Lab: see note ML - The [facility] LB NM gui perf SPECT rest str Reviewed date:01/24/2025 05:27:31 PM Interpretation: Performing Lab: Notes/Report: Source Facility: [facility]-[address] [place] [address] [place] [address] Nuclear Medicine Report Signed Patient: DUYEN GODOY MR#: [id number] : 1955 Acct:[id number] Age/Sex: 69 / F ADM Date: 01/23/25 Loc: NM Attending Dr: Isacc Valles M.D. Ordering Physician: Isacc Valles M.D. Date of Service: 01/23/25 Procedure(s): NM gui perf SPECT rest str Accession Number(s): [id number] cc: Isacc Valles M.D.; Yessica Sheffield Patient Name: DUYEN GODOY MR#: [id number] : 1955 Exam Date: 01/23/2025 Ordering Doctor: [...] the study was pending per attending physician [facility]. For more details, please see separate [...] Signed By: 01/24/25 1559 DD/ 1558 TD/TT: Internet Marketing Intern: REYM echo doppler complete Reviewed date:01/02/2025 08:31:59 PM Interpretation: Performing Lab: Notes/Report: Source Facility: [facility]-[address] [place] [address] [place] [address] Cardiology Report Signed Patient: DUYEN GODOY MR#: [id number] : 1955 Acct:[id number] Age/Sex: 69 / F ADM Date: 01/01/25 Loc: MS 222-[address]: Shaikh Alysha Koehler Ordering Physician: Isacc Valles M.D. Date of Service: 01/02/25 Procedure(s): CA echo doppler complete Accession Number(s): [id number] cc: Isacc Valles M.D.; Yessica Sheffield Patient Name: DUYEN GODOY MR#: [id number] : 1955 Exam Date: 01/02/2025 Ordering Doctor: [...] PARRA Signed By: 01/02/251826 DD/ 25 TD/TT: Internet Marketing Intern: Reason For Referral No Information Medications Medication SIG (Take, Route, Frequency, Duration) Notes Start Date End Date Status Isosorbide Mononitrate ER 30 MG 2 tablet in the morning Orally Once a day; Duration: 30 days Active Protonix 40 MG 1 tablet Orally Once a day; Duration: 30 days 01/09/2025 Active Ondansetron 4 MG DISSOLVE 1 TABLET BY MOUTH 4 TIMES A DAY; Duration: 5 Active Social History Tobacco Use: Social [...] Problem Status W/U Status Risk Notes Problem Nephropathy due to secondary diabetes mellitus (106049896610226) 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) Active confirmed Problem Chronic kidney disease stage 2 (143838557) Chronic kidney disease, stage 2 (mild) (N18.2) Active confirmed Problem Long-term current use of insulin (697987752) continuous churn buttermaker (current) use of insulin (Z79.4) Active confirmed Problem Hypertension (16250757) HTN (hypertension) (I10) Active confirmed Problem Constipation (52475169) Constipation, unspecified constipation type (K59.00) Active confirmed Problem Gastritis (6119901) Gastritis (K29.70) Active confirmed Problem Hypoglycemia (621423564) Hypoglycemia (E16.2) Active confirmed Problem Diverticulitis (62468697) Diverticulitis (K57.92) Active confirmed Problem Seasonal allergic rhinitis (166023258) Seasonal allergic reaction (J30.2) Active confirmed Problem Acute urinary tract infection (710166137) Acute UTI (N39.0) Active confirmed Problem Acute non-ST segment elevation myocardial infarction (201596249) NSTEMI (non-ST elevation myocardial infarction) (I21.4) Active confirmed Problem Primary hypertension (61726892) Primary hypertension (I10) Active confirmed Vital Signs Blood pressure diastolic 62 mm Hg 01/09/2025 Height 71 in 01/09/2025 Blood pressure systolic 130 mm Hg 01/09/2025 Weight 199.4 lbs 01/09/2025 BMI 27.81 kg/m2 01/09/2025 Procedures Procedure Date Ordered Date Performed Result Body Sit e *CARDIO Stress Test - Lexiscan Nuclear 01/09/2025 N/A Encounters Encounter Location Date Provider Diagnosis [facility] [address] [place] [address] 01/09/2025 Uche Valles NSTEMI (non-ST eleva tion myocardial infarction) I21.4 ; Gastritis K29.70 ; Seasonal allergic reaction J30.2 ; Acute UTI N39.0 and Diverticulitis K57.92 [facility] [address] [facility] [address] 01/02/2025 Uche Vallse [facility] [address] [facility] [place] [address] 01/07/2025 Uche Valles [facility] [address] [facility] [place] [address] 01/09/2025 Uche yohannes [facility] [address] [facility] [place] [address] 01/09/2025 Uche yohannes [facility] [address] [facility] [place] [address] 01/24/2025 Uche Mendozayohannes [facility] [address] [facility] [place] [address] 02/13/2025 Uche Valles NSTEMI (non-ST eleva tion myocardial infarction) I21.4 [facility] [address] [facility] [place] [address] 03/12/2025 Uche Valles Assessments Encounter Date Diagnosis (ICD Code) Assessment Notes Treatment Notes Treatment Clinical Notes Section Notes 01/09/2025 NSTEMI (non-ST elevation myocardial infarction) (ICD-10 - I21.4) NSTEMI type II - neeeds lexiscan - 01/09/2025 Gastritis (ICD-10 - K29.70) 02/13/2025 NSTEMI (non-ST elevation myocardial infarction) (ICD-10 - I21.4) 01/09/2025 Seasonal allergic reaction (ICD-10 - J30.2) 01/09/2025 Acute UTI (ICD-10 - N39.0) 01/09/2025 Diverticulitis (ICD-10 - K57.92) Plan Of Treatment Pending Test Test Name Order Date *CARDIO Stress Test - Lexiscan Nuclear 0 01/09/2025 Insurance Providers Payer Name Payer Address Payer Phone Subscriber Number Group Number Insured Name Patient Relationship to Insured Coverage Start Date Coverage End Date [employer] MEDICARE SOLUTIONS [address] [address] [place] [phone] [id number] [place] Self - patient is the insured
--- OUTSIDE RECORDS SUMMARY | 2025-06-14 09:57 | XMS_ITS | Encounter Summary ---
Author Organization [employer] Address [id number] [address] [place] [address] Care Team Providers Care Clinical Staff Anesthesiologist Name Role Phone Alexa Martinez APRNSTERLING Primary Care Provider + Reason for Visit * Reason Comments Med Refill Encounter Details Date Type Department Care Team (Late st Contact Info) Description 10/29/2021 Refill [facility] [address] [place] [address] [place] [address] Jostin Sadler PA-C [address] [id number] Med Refill Social History Tobacco Use Types [...] on filedocumented in this encounter Care Teams Clinical Staff Anesthesiologist Relationship Specialty Start Date End Date Alexa Martinez APRN-CNP [address] [place] [address] PCP - General Nurse Practitioner 11/13/24 documented as of this encounter
--- OUTSIDE RECORDS SUMMARY | 2025-06-14 09:57 | XMS_ITS | Encounter Summary ---
Author Organization [facility] Address [address] [place] [address] Care Team Providers Care Hydroelectric Plant Maintainer Name Role Phone Yessica Sheffield MD Primary Care Provider [phone] Encounter Details Date Type Department Care Team (Late Contact Info) Description 04/20/2023 Abstract [facility] [address] [place] [phone] Az George DPM [address] [place] [address] Social History Tobacco Use Types Packs/Day Years [...] Department Care Team (Late Contact Info) Description 06/14/2025 10:40 AM EDT Office Visit [facility] [address] [facility] [address] [place] [address] Adan Pearson DPM [address] [facility] [address] [place] [address] 06/19/2025 1:10 PM EDT Office Visit [facility] [address] [place] [address] Lety Warren MD [address] [place] [address] documented as of this encounter Visit Diagnoses Not on filedocumented in this encounter Care Teams Hydroelectric Plant Maintainer Relationship Specialty Start Date End Date Yessica Sheffield MD [address] [place] [address] PCP - General Pediatrics 04/26/23 documented as of this encounter
--- OUTSIDE RECORDS SUMMARY | 2025-06-14 09:59 | XMS_ITS | Encounter Summary ---
Author Organization [employer] Address [id number] [address] [place] [address] Care Team Providers Care Boring Mill Set Up Operator Name Role Phone Alexa Martinez ROTATING FIELD ASSEMBLERSTERLING Primary Care Provider + Encounter Details Date Type Department Care Team (Late st Contact Info) Description 01/24/2021 Orders Only [facility] [address] [place] [address] [place] [address] External, Scanning Provider Social History [...] Multiple labs (05/24/2020) us Scanning Provider External DC IMAGING Final Result MANUALLY TRANSCRIBED RESULTS * [...] Edited Result - Final Performing Organization Address City/[facility]/ZIP Co de Phone Number MANUALLY TRANSCRIBED RESULTS * Multiple labs (11/22/2019) us Scanning Provider External DC IMAGING Final Result MANUALLY TRANSCRIBED RESULTS documented in this encounter Visit Diagnoses Not on filedocumented in this encounter Care Teams Boring Mill Set Up Operator Relationship Specialty Start Date End Date Alexa Martinez APRN-CARLOS ENRIQUE [address] [place], [place] [address] PCP - General Nurse Practitioner 11/13/24 documented as of this encounter
--- OUTSIDE RECORDS SUMMARY | 2025-06-14 09:59 | XMS_ITS | Encounter Summary ---
Author Organization [employer] Sys [employer] Address [id number] [address] [place] [address] Care Team Providers Care Windows System Admin Name Role Phone Juan, Alexa FRIDA-FILING OR REGISTRY CLERK Primary Care Provider + Encounter Details Date Type Department Care Team (Late st Contact Info) Description 12/31/2020 Orders Only [facility] [address] [place] [address] [place] [address] Lyric Lea RN Social History [...] on filedocumented in this encounter Care Teams Windows System Admin Relationship Specialty Start Date End Date Alexa Martinez APRN-CNP [address] [place] [address] PCP - General Nurse Practitioner 11/13/24 documented as of this encounter
--- OUTSIDE RECORDS SUMMARY | 2025-06-14 09:59 | XMS_ITS | Encounter Summary ---
Author Organization [employer] Address [id number] [address] [place] [address] Care Team Providers Care Site Reliability Engineer Name Role Phone Alexa Martinez Primary Care Provider + Reason for Visit * Reason Comments Med Refill Encounter Details Date Type Department Care Team (Late st Contact Info) Description 09/26/2020 Refill [facility] [address] [facility] 1 [place] [address] Jeff Ardon MD Med Refill [...] on filedocumented in this encounter Care Teams Site Reliability Engineer Relationship Specialty Start Date End Date Alexa Martinez APRN-CNP [facility] [place], [place] [address] PCP - General Nurse Practitioner 11/13/24 documented as of this encounter
--- OUTSIDE RECORDS SUMMARY | 2025-06-14 09:59 | XMS_ITS | Encounter Summary ---
Author Organization [employer] Address [facility]-[id number] [address] [place] [address] Care Team Providers Care Braille Coder Name Role Phone Alexa Martinez APRN-CARLOS ENRIQUE Primary Care Provider + Reason for Visit * Reason Comments Med Refill Encounter Details Date Type Department Care Team (Late st Contact Info) Description 08/27/2020 Refill [facility] [address] [facility] 1 [place] [address] Jeff Ardon MD Med Refill [...] called pt and she will go into [place] to get labs done documented in this encounter Plan of Treatment Not on file documented as of this encounter Visit Diagnoses Not on filedocumented in this encounter Care Teams Braille Coder Relationship Specialty Start Date End Date Alexa Martinez APRN-CNP [address] [place] [address] PCP - General Nurse Practitioner 11/13/24 documented as of this encounter
--- OUTSIDE RECORDS SUMMARY | 2025-06-14 09:59 | XMS_ITS | Encounter Summary ---
Author Organization [employer] Address [facility] [place]-[id number] [address] [place] [address] Care Team Providers Care Senior Core Java Developer Name Role Phone Alexa Martinez CASKET ASSEMBLER METAL-REFRIGERATION SYSTEM INSTALLER Primary Care Provider + Reason for Visit * Reason Comments Med Refill Encounter Details Date Type Department Care Team (Late st Contact Info) Description 12/30/2020 Refill [facility] [address] [facility] 1 [place] [address] Sadi Cedillo APRN-REFRIGERATION SYSTEM INSTALLER [address] [place] [address] Med Refill Social History Tobacco Use Types [...] on filedocumented in this encounter Care Teams Senior Core Java Developer Relationship Specialty Start Date End Date Alexa Martinez APRN-CARLOS ENRIQUE [address] [place] [address] PCP - General Nurse Practitioner 11/13/24 documented as of this encounter
--- NOTE | 2025-06-14 10:10 | ED.GENADUL1 ---
HPI HPI - General Adult General Chief complaint: Nausea/Vomiting/Diarrhea Stated complaint: NAUSEA/VOMITING Time Seen by Provider: 06/14/25 09:49 Source: patient Limitations: no limitations History of Present Illness HPI narrative: cc - sore throat, nausea and vomiting Started 5 days ago, she told us, with mild cough, achiness, sore throat. The next day she was passing gas but unable to pass stool. She had nausea. The following day she began vomiting and has not been able to keep down solid foods since then. This morning she was able to keep down some liquids, including half of an Ensure shake. No urinary symptoms but she does have chronic urinary incontinence. No ear pain or headache. No neck pain, chest pain, shortness of breath or back pain. No flank pain or abdominal pain. Related Data Home Medications ?Medication ?Instructions ?Recorded ?Confirmed albuterol sulfate 90 mcg/actuation 2 puff inhalation Q4H PRN 06/28/23 01/01/25 aerosol inhaler shortness of breath or wheezing atorvastatin 80 mg tablet 80 mg PO DAILY 06/28/23 01/01/25 bupropion HCl 150 mg tablet,12 hr 150 mg PO DAILY 06/28/23 01/01/25 sustained-release buspirone 15 mg tablet 15 mg PO BID 06/28/23 01/02/25 dapagliflozin propanediol 10 mg 10 mg PO DAILY 06/28/23 01/01/25 tablet (Farxiga) fluoxetine 40 mg capsule 40 mg PO DAILY 06/28/23 01/01/25 insulin glargine 100 unit/mL (3 30 unit subcut BEDTIME 06/28/23 01/01/25 mL) subcutaneous pen (Lantus Solostar U-100 Insulin) metoprolol succinate 50 mg 50 mg PO DAILY 06/28/23 01/01/25 tablet,extended release 24 hr nitroglycerin 0.4 mg sublingual 0.4 mg sublingual Q5M PRN chest 06/28/23 01/01/25 tablet pain pantoprazole 40 mg tablet,delayed 40 mg PO DAILY 06/28/23 01/01/25 release prazosin 2 mg capsule 2 mg PO .q hs 06/28/23 01/01/25 trazodone 50 mg tablet 50 mg PO .q hs PRN sleep 01/01/25 01/02/25 gabapentin 300 mg capsule 300 mg PO BID 01/02/25 01/02/25 insulin lispro 100 unit/mL 10 unit subcut TIDWM 01/02/25 01/02/25 subcutaneous pen lisinopril 20 mg tablet 20 mg PO DAILY 01/02/25 01/02/25 semaglutide 0.25 mg or 0.5 mg (2 0.5 mg subcut QWEEK 01/02/25 01/02/25 mg/3 mL) subcutaneous pen injector (Ozempic) Previous Rx's ?Medication ?Instructions ?Recorded meclizine 25 mg tablet 25 mg PO TID PRN dizziness #30 tabs 07/30/23 ondansetron 4 mg disintegrating 4 mg PO Q6H PRN nausea and 07/30/23 tablet vomiting #20 tabs aspirin 81 mg capsule 81 mg PO DAILY #30 caps 01/02/25 ciprofloxacin HCl 500 mg tablet 500 mg PO Q12H #20 tabs 01/02/25 (Cipro) isosorbide mononitrate 30 mg 60 mg (2 x 30 mg) PO DAILY #60 tabs 01/02/25 tablet,extended release 24 hr metronidazole 500 mg tablet 500 mg PO Q8H #30 tabs 01/02/25 ondansetron 4 mg disintegrating 4 mg PO Q6H PRN nausea and 06/14/25 tablet vomiting #20 tabs Allergies Allergy/AdvReac Type Severity Reaction Status Date / Time No Known Drug Allergies Allergy Verified 06/14/25 09:55 Opioid HPI Opioid Management Most Recent Opioid Data: Last Pain Scale 9 Today, 09:55 Last ORT Total Score 1 01/01/25, 20:26 Last ORT Risk Category Low Risk 01/01/25, 20:26 [facility] Medical History (Updated 06/14/25 @ 11:52 by Toy Moran) Hyperglycemia ?R73.9 - Hyperglycemia, unspecified (ICD-10) Acute UTI ?N39.0 - Urinary tract infection, site not specified (ICD-10) Elevated troponin ?R79.89 - Other specified abnormal findings of blood chemistry (ICD-10) Nausea, vomiting, and diarrhea ?R11.2 - Nausea with vomiting, unspecified (ICD-10) ?R19.7 - Diarrhea, unspecified (ICD-10) Social History Smoking status: Never smoker Highest level of school completed/degree received: high school graduate Little interest or pleasure in doing things: not at all Feeling down, depressed, or hopeless: not at all Exam Narrative Exam Narrative: Nurses notes and vital signs reviewed and patient is not hypoxic. afebrile General: Well-appearing and in no apparent distress. Skin: Warm, dry, no pallor noted. Head: Normocephalic, atraumatic. Neck: Supple, non-tender. No meningismus. No lymphadenopathy. Eye: Pupils are equal, round and EOMI. No scleral icterus. Ears, Nose, Mouth, and Throat: TM are clear, minimal posterior oropharynx erythema, no nasal mucosal hypertrophy, uvula is mid-line, Oral mucosa is moist Cardiovascular: Regular Rate and Rhythm without murmur, gallop or rub. Respiratory: No accessory muscle use or respiratory distress. Lungs are clear to auscultation, no wheezing, rales or rhonchi Back: No CVA tenderness Musculoskeletal: normal ROM, no calf or popliteal tenderness, no lower extremity edema/swelling GI: Abdomen is soft, non-distended. Normal bowel sounds. No tenderness to palpation. No rebound, guarding, or rigidity noted. Neurological: A&O x4. No cranial nerve dysfunction observed. No truncal ataxia. Moves all extremities. Sensation intact. Psychiatric: Cooperative and interactive. Normal mood and affect. Constitutional Vital Signs, click to edit/add: Last Vital Signs Temp 98.1 F 06/14/25 09:55 Pulse 63 06/14/25 09:55 Resp 18 06/14/25 09:55 BP 143/72 H 06/14/25 09:55 Pulse Ox 99 06/14/25 09:55 O2 Del Method Room Air 06/14/25 09:55 Course Vital Signs Vital signs: Vital Signs Temperature 98.1 F 06/14/25 09:55 Pulse Rate 63 06/14/25 09:55 Respiratory Rate 18 06/14/25 09:55 Blood Pressure 143/72 H 06/14/25 09:55 Pulse Oximetry 99 06/14/25 09:55 Oxygen Delivery Method Room Air 06/14/25 09:55 Temperature 98.1 F 06/14/25 09:55 Pulse Rate 63 06/14/25 09:55 Respiratory Rate 18 06/14/25 09:55 Blood Pressure 143/72 H 06/14/25 09:55 Pulse Oximetry 99 06/14/25 09:55 Oxygen Delivery Method Room Air 06/14/25 09:55 Medical Decision Making MDM Narrative Medical decision making narrative: Blood drawn and sent for testing. Urine also was able to be obtained and sent for testing. Patient received a liter of normal saline IV fluid IV Zofran for her nausea. White blood cell count normal. Hemoglobin stable. Swabs for influenza, strep and COVID were negative. Glucose elevated at 414, sodium slightly decreased at 131, normal potassium at 5, slightly decreased chloride at 96, elevated BUN at 33 and creatinine at 1.17. LFTs were normal. Urinalysis is consistent with dehydration showing trace ketones and also with the patient's hyperglycemia, showing glucosuria. Patient felt better after receiving a second liter of normal saline IV fluid. We did give her IV insulin in order to bring her blood sugar down. Patient I discussed her findings and diagnosis and she was discharged home with recommendation to maintain a clear liquid diet and take Zofran oral dissolvable tablets, which I prescribed, until her vomiting abated. Repeat Glucose = 303. She was instructed to keep a close eye on her glucose. ED return if she worsens. Lab Data Lab results reviewed: Yes I reviewed the patient's lab results Labs: Lab Results 06/14/25 06/14/25 06/14/25 Range/Units 10:00 10:20 10:40 WBC 10.0 (4.0-11.0) 10^3/uL RBC 4.67 (4.20-5.40) 10^6/uL Hgb 13.4 (12.0-16.0) g/dL Hct 40.1 (36.0-48.0) % MCV 85.9 (81.0-99.0) fL MCH 28.7 (26.7-34.0) pg MCHC 33.4 (29.9-35.2) g/dL RDW 13.2 (11.0-15.0) % Plt Count 321 (150-450) 10^3/uL MPV 10.4 (9.5-13.5) fL Neut % (Auto) 75.0 (43.0-75.0) % Lymph % (Auto) 16.3 L (20.5-60.0) % Morris % (Auto) 5.9 (1.7-12.0) % Eos % (Auto) 1.9 (0.9-7.0) % Baso % (Auto) 0.5 (0.2-2.0) % Neut # (Auto) 7.5 H (1.4-6.5) 10^3/uL Lymph # (Auto) 1.6 (1.2-3.8) 10^3/uL Morris # (Auto) 0.6 (0.3-0.8) 10^3/uL Eos # (Auto) 0.2 (0.0-0.7) 10^3/uL Baso # (Auto) 0.1 (0.0-0.1) 10^3/uL Abs Immat Gran (auto) 0.04 H (0.00-0.03) 10^3/uL Imm/Tot Granulo (auto) 0.4 (0.0-0.5) % Sodium 131 L (136-145) mmol/L Potassium 5.0 (3.5-5.1) mmol/L Chloride 96 L (98-107) mmol/L Carbon Dioxide 21.2 (21.0-32.0) mmol/L Anion Gap 18.8 BUN 33.0 H (7.0-18.0) mg/dL Creatinine 1.17 H (0.55-1.02) mg/dL Est GFR ( Amer) 55 L (>=60 mL/min/1.73m^2) Est GFR (Non-Af Amer) 46 L (>=60 mL/min/1.73m^2) BUN/Creatinine Ratio 28.2 Glucose 414 H (74-106) mg/dL Calcium 8.7 (8.5-10.1) mg/dL Total Bilirubin 0.5 (0.2-1.0) mg/dL AST 14 L (15-37) U/L ALT 18 (14-59) U/L Alkaline Phosphatase 98 (46-116) U/L Total Protein 6.9 (6.4-8.2) g/dL Albumin 3.2 L (3.4-5.0) g/dL Globulin 3.7 g/dL Albumin/Globulin Ratio 0.9 Lipase 27.0 (16.0-77.0) U/L Urine Color Lt. yellow (YELLOW) Urine Clarity Clear (CLEAR) Urine pH 5.5 (5.0-9.0) Ur Specific [place] 1.010 (1.005-1.025) Urine Protein Trace (NEG/TRACE) mg/dL Urine Glucose (UA) >=1000 A (NEGATIVE) mg/dL Urine Ketones 15 A (NEGATIVE) mg/dL Urine Occult Blood Negative (NEGATIVE) Urine Nitrite Negative (NEGATIVE) Urine Bilirubin Negative (NEGATIVE) Urine Urobilinogen 0.2 (0.2-1.0) EU/dL Ur Leukocyte Esterase Negative (NEGATIVE) Influenza Type A Ag Negative Influenza Type B Ag Negative SARS-CoV-2 Ag (CV2AG) Negative (NEGATIVE) Streptococcus Screen Negative POC Glucose (74-106) mg/dL 06/14/25 Range/Units 12:05 WBC (4.0-11.0) 10^3/uL RBC (4.20-5.40) 10^6/uL Hgb (12.0-16.0) g/dL Hct (36.0-48.0) % MCV (81.0-99.0) fL MCH (26.7-34.0) pg MCHC (29.9-35.2) g/dL RDW (11.0-15.0) % Plt Count (150-450) 10^3/uL MPV (9.5-13.5) fL Neut % (Auto) (43.0-75.0) % Lymph % (Auto) (20.5-60.0) % Morris % (Auto) (1.7-12.0) % Eos % (Auto) (0.9-7.0) % Baso % (Auto) (0.2-2.0) % Neut # (Auto) (1.4-6.5) 10^3/uL Lymph # (Auto) (1.2-3.8) 10^3/uL Morris # (Auto) (0.3-0.8) 10^3/uL Eos # (Auto) (0.0-0.7) 10^3/uL Baso # (Auto) (0.0-0.1) 10^3/uL Abs Immat Gran (auto) (0.00-0.03) 10^3/uL Imm/Tot Granulo (auto) (0.0-0.5) % Sodium (136-145) mmol/L Potassium (3.5-5.1) mmol/L Chloride (98-107) mmol/L Carbon Dioxide (21.0-32.0) mmol/L Anion Gap BUN (7.0-18.0) mg/dL Creatinine (0.55-1.02) mg/dL Est GFR ( Amer) (>=60 mL/min/1.73m^2) Est GFR (Non-Af Amer) (>=60 mL/min/1.73m^2) BUN/Creatinine Ratio Glucose (74-106) mg/dL Calcium (8.5-10.1) mg/dL Total Bilirubin (0.2-1.0) mg/dL AST (15-37) U/L ALT (14-59) U/L Alkaline Phosphatase (46-116) U/L Total Protein (6.4-8.2) g/dL Albumin (3.4-5.0) g/dL Globulin g/dL Albumin/Globulin Ratio Lipase (16.0-77.0) U/L Urine Color (YELLOW) Urine Clarity (CLEAR) Urine pH (5.0-9.0) Ur Specific [place] (1.005-1.025) Urine Protein (NEG/TRACE) mg/dL Urine Glucose (UA) (NEGATIVE) mg/dL Urine Ketones (NEGATIVE) mg/dL Urine Occult Blood (NEGATIVE) Urine Nitrite (NEGATIVE) Urine Bilirubin (NEGATIVE) Urine Urobilinogen (0.2-1.0) EU/dL Ur Leukocyte Esterase (NEGATIVE) Influenza Type A Ag Influenza Type B Ag SARS-CoV-2 Ag (CV2AG) (NEGATIVE) Streptococcus Screen POC Glucose 303 H (74-106) mg/dL Discharge Plan Discharge Chief Complaint: Nausea/Vomiting/Diarrhea Clinical Impression: Gastroenteritis, Dehydration, Acute kidney injury, Diabetes mellitus with hyperglycemia, Pharyngitis Patient Disposition: Home, Self-Care Time of Disposition Decision: 11:52 Prescriptions / Home Meds: New ondansetron 4 mg tablet,disintegrating 4 mg PO Q6H PRN (Reason: nausea and vomiting) Qty: 20 0RF No Action albuterol sulfate 90 mcg/actuation HFA aerosol inhaler 2 puff INHALATION Q4H PRN (Reason: shortness of breath or wheezing) atorvastatin 80 mg tablet 80 mg PO DAILY bupropion HCl 150 mg tablet sustained-release 12 hr 150 mg PO DAILY buspirone 15 mg tablet 15 mg PO BID dapagliflozin propanediol [Farxiga] 10 mg tablet 10 mg PO DAILY fluoxetine 40 mg capsule 40 mg PO DAILY insulin glargine [Lantus Solostar U-100 Insulin] 100 unit/mL (3 mL) insulin pen 30 unit SUBCUT BEDTIME metoprolol succinate 50 mg tablet extended release 24 hr 50 mg PO DAILY nitroglycerin 0.4 mg tablet, sublingual 0.4 mg sublingual Q5M PRN (Reason: chest pain) pantoprazole 40 mg tablet,delayed release (DR/EC) 40 mg PO DAILY prazosin 2 mg capsule 2 mg PO .q hs ondansetron 4 mg tablet,disintegrating 4 mg PO Q6H PRN (Reason: nausea and vomiting) Qty: 20 0RF meclizine 25 mg tablet 25 mg PO TID PRN (Reason: dizziness) Qty: 30 0RF trazodone 50 mg tablet 50 mg PO .q hs PRN (Reason: sleep) insulin lispro 100 unit/mL insulin pen 10 unit SUBCUT TIDWM Ozempic 0.25 mg or 0.5 mg (2 mg/3 mL) pen injector 0.5 mg SUBCUT QWEEK gabapentin 300 mg capsule 300 mg PO BID lisinopril 20 mg tablet 20 mg PO DAILY ciprofloxacin HCl [Cipro] 500 mg tablet 500 mg PO Q12H Qty: 20 0RF metronidazole 500 mg tablet 500 mg PO Q8H Qty: 30 0RF aspirin 81 mg capsule 81 mg PO DAILY Qty: 30 11RF isosorbide mononitrate 30 mg Tablet Extended Release 24 Hr 60 mg PO DAILY Qty: 60 0RF Print Language: Vietnamese Instructions: Dehydration (ED), Acute Kidney Injury (DC), Acute Nausea and Vomiting (ED), Diabetic Hyperglycemia (ED) Referrals: Roby Sheldon MD [Primary Care Provider, Family Practice] - 1 week
[2025-06-14 10:28] LABS: Hematocrit 40.1 % (36.0-48.0); Hemoglobin 13.4 g/dL (12.0-16.0); Immature Granulocytes Abs Auto 0.04 10^3/uL (0.00-0.03); Immature Granulocytes Pct Auto 0.4 % (0.0-0.5); Lymphocytes Absolute Auto 1.6 10^3/uL (1.2-3.8); Mean Corpuscular HGB Conc 33.4 g/dL (29.9-35.2); Mean Corpuscular Hemoglobin 28.7 pg (26.7-34.0); Mean Corpuscular Volume 85.9 fL (81.0-99.0); Platelet Count 321 10^3/uL (150-450); Red Blood Count 4.67 10^6/uL (4.20-5.40); White Blood Count 10.0 10^3/uL (4.0-11.0)
[2025-06-14] MEDS: 0.9 % SODIUM CHLORIDE 1,000 ML 100 ML IV (10:36)
[2025-06-14 10:39] LABS: SARS-CoV-2 Ag NEGATIVE (NEGATIVE)
[2025-06-14 10:45] LABS: Alanine Aminotransferase 18 U/L (14-59); Albumin Globulin Ratio 0.9; Albumin Level 3.2 g/dL (3.4-5.0); Alkaline Phosphatase 98 U/L (46-116); Anion Gap 18.8; Aspartate Amino Transferase 14 U/L (15-37); Blood Urea Nitrogen 33.0 mg/dL (7.0-18.0); Calcium 8.7 mg/dL (8.5-10.1); Carbon Dioxide 21.2 mmol/L (21.0-32.0); Chloride 96 mmol/L (98-107); Estimated GFR (African America 55 (>=60 mL/min/1.73m^2); Estimated GFR (Non-African Ame 46 (>=60 mL/min/1.73m^2); Globulin 3.7 g/dL; Glucose 414 mg/dL (74-106); Lipase 27.0 U/L (16.0-77.0); Potassium 5.0 mmol/L (3.5-5.1); Sodium 131 mmol/L (136-145); Total Protein 6.9 g/dL (6.4-8.2)
[2025-06-14 10:56] LABS: Glucose Urine UA >=1000 mg/dL (NEGATIVE)
[2025-06-14] MEDS: INSULIN REGULAR, HUMAN (100 UNIT/ML) 10 ML MDV 10 UNIT IV (11:17)
[2025-06-14] MEDS: 0.9 % SODIUM CHLORIDE 1,000 ML 1000 ML IV (11:18)
== END 2025-06-14 12:25 | disposition home or self-care (01) ==
PROVIDERS: Emergency Provider Emergency Medicine; PCP Family Medicine
DX: E86.0 Dehydration (principal); K52.9 Noninfective gastroenteritis and colitis, unspecified; N17.9 Acute kidney failure, unspecified; E11.65 Type 2 diabetes mellitus with hyperglycemia; J02.9 Acute pharyngitis, unspecified; Z79.4 Long term (current) use of insulin; Z79.85 Long-term (current) use of injectable non-insulin antidiabetic drugs
CPT/HCPCS: 36415; 80053; 81003; 83690; 85025; 87070; 87804; 87811; 87880; 96361; 96374; 99284; J1817; J2405

== ENCOUNTER 2025-06-19 18:38 | Inpatient (IN) | payer MEDICARE, SELFPAY ==
[2025-06-19] VITALS (28 sets, daily range): BP systolic 136–167; BP diastolic 81–113; PULSE 64–78; TEMP 36.6–37.4; O2SAT 85–100; BMI 28.1
--- OUTSIDE RECORDS SUMMARY | 2025-06-19 18:46 | XMS_ITS | CCD ---
Author Organization [facility] Care Team Providers Care Feller Buncher Operator Name Role Phone [facility] Primary Care Unavailable HOY ., DR [...] Primary Care Provider Dav Cardenas Attending Unavailable ADAN PEARSON Attending Unavailable LETY ROTHMAN Attending Unavailable LETY ROTHMAN Referring Unavailable ADAN PEARSON Attending Unavailable CORY ALBRIGHT Attending Unavailable LETY ROTHMAN Attending Unavailable LETY ROTHMAN Referring Unavailable Allergies Allergy Classification Reported Allergen(s) Allergy Type Date of Onset Reaction(s) Facility (1 source) Acetaminophen / oxyCODONE Drug Allergy 1 [facility] (14 sources) Acetaminophen / oxyCODONE Drug Allergy 3 GI intolerance [facility] (14 sources) Dextromethorphan / guaiFENesin Drug Allergy 1 [facility] (14 sources) guaiFENesin Drug Allergy 3 [facility] Medications Current Medications Medication Drug Class(es) Dates Sig (Normalized) Sig (Original) acetaminophen 325 mg / HYDROcodone bitartrate 7.5 mg oral tablet (14 sources) Opioid Agonist HYDROcodone-acet ami nophen ([place]) 7.5-325 MG tablet Active [id number] actuat albuterol 0.09 mg/actuat metered dose inhaler (5 sources) beta2-Adrenergic Agonist take 2 puff(s) by [...] aspirin 81 mg delayed release oral tablet (14 sources) Platelet Aggregation Inhibitor, Nonsteroidal Anti-inflammatory Drug take 1 tablet by mouth in the morning aspirin 81 MG EC tablet Take 81 mg by mouth in the morning. Active atorvastatin 80 mg oral tablet (14 sources) HMG-CoA Reductase Inhibitor take 1 tablet by mouth in the morning atorvastatin (Lipitor) 80 MG tablet Take 80 mg by mouth in the morning. Active bisacodyl 10 mg rectal suppository (14 sources) Stimulant Laxative bisacodyl (Dulcolax) 10 MG suppository Insert into the rectum. Active 12 hr buPROPion hydrochloride 150 mg extended release oral tablet (14 sources) Aminoketone take 1 tablet by mouth every twelve hours in the morning buPROPion SR (Wellbutrin SR) 150 MG 12 hr tablet Take 150 mg by mouth in the morning and 150 mg before bedtime. Do not crush, chew, or split. . Active busPIRone hydrochloride 15 mg oral tablet (14 sources) take 1 tablet by mouth every twelve hours busPIRone (Buspar) 15 MG tablet Take 15 mg by mouth every 12 (twelve) hours. Active cefuroxime 500 mg oral tablet (14 sources) Cephalosporin Antibacterial take 1 tablet by mouth in the morning cefuroxime (Ceftin) 500 MG tablet Take 500 mg by mouth in the morning and 500 mg before bedtime. Active cephalexin 500 mg oral capsule (14 sources) Cephalosporin Antibacterial take 1 capsule by mouth every six hours cephalexin (Keflex) 500 MG capsule Take 500 mg by mouth every 6 (six) hours. Active cyproheptadine hydrochloride 4 mg oral tablet (14 sources) cyproheptadine (Periactin) 4 MG tablet Take 4 mg by mouth. Active dapagliflozin 10 mg oral tablet (18 sources) Sodium-Glucose Cotransporter 2 Inhibitor Start: 06-14-2024 End: 06-19-2025 take 1 tablet by mouth once daily dapagliflozin (Farxiga) 10 MG Indications: Type 2 diabetes mellitus with hyperglycemia, with long-term current use of insulin (HCC) Take 1 tablet (10 mg) by mouth Daily 90 tablet 1 12/21/2024 06/19/2025 Active End: 06-14-2024 Dapagliflozin Propanediol (F ARXIGA PO) Take by mouth. 06/14/2024 Discontinued (Reorder) Dapagliflozin Pr opanediol (FARXIGA PO) Take by mouth. Active docusate sodium 100 mg oral capsule (14 sources) take 1 capsule by mouth in the morning docusate sodium (Colace) 100 MG capsule Take 100 mg by mouth in the morning and 100 mg before bedtime. Active doxycycline hyclate 100 mg oral capsule (14 sources) Tetracycline-class Drug Start: 023 take 1 capsule by mouth every twelve hours doxycycline (Vibramycin) 100 MG capsule 100 mg every 12 (twelve) hours. 04/22/2023 Active 1 ml enoxaparin sodium 100 mg/ml prefilled syringe (14 sources) Low Molecular Weight Heparin Enoxaparin Sodium 100 MG/ML solution prefilled syringe Inject as directed. Active ferrous sulfate 325 mg oral tablet (14 sources) take 1 tablet by mouth at mealtime ferrous sulfate 325 (65 Fe) MG tablet Take 325 mg by mouth in the morning. Take with meals. Active FLUoxetine 10 mg oral capsule (14 sources) Serotonin Reuptake Inhibitor take 1 capsule by mouth in the morning FLUoxetine (PROzac) 10 MG capsule Take 10 mg by mouth in the morning. Active gabapentin 300 mg oral capsule (14 sources) Anti-epileptic Agent Start: take 1 capsule by mouth in the morning, then take 1 capsule by mouth in the evening, then take 1 capsule by mouth at bedtime gabapentin (Neurontin) 300 MG capsule Take 300 mg by mouth in the morning and 300 mg in the evening and 300 mg before bedtime. 09/18/2023 Active 0.2 ml glucagon 5 mg/ml auto-injector (13 sources) Antihypoglycemic Agent Start: End: inject 0.2 mL by subcutaneous injection once glucagon (Gvoke HypoPen 1-Pack) 1 MG/0.2ML injection Indications: Hypoglycemia Inject 0.2 mL (1 mg) under the skin 1 (one) time if needed for low blood sugar 0.2 Unspecified 1 06/14/2024 06/14/2025 Active hyoscyamine sulfate 0.025 mg/ml oral solution (14 sources) take 125 ug by mouth every four hours as needed for muscle spasms hyoscyamine (Levsin) 0.125 MG/5ML elixir Take 125 mcg by mouth every 4 (four) hours if needed for bladder spasms. Active 3 ml insulin aspart, human 100 unt/ml pen injector (14 sources) Insulin Analog Start: NovoLOG FLEXPEN 100 [...] long-term current use of insulin (HCC) Inject 30 Units under the skin at [...] with long-term current use of insulin (HCC) INJECT 20 UNITS UNDER THE SKIN EVERY [...] ml insulin lispro 100 unt/ml pen injector (15 sources) Insulin Analog Start: 12-21-2024 End: 06-19-2025 insulin lispro (HumaLOG KWIKPEN) 100 UNIT/ML injection Indications: Type 2 diabetes mellitus with hyperglycemia, with long-term current use of insulin (HCC) Inject 10 Units under the skin in the morning and 10 Units at noon and 10 Units in the evening. Inject with meals. 10.8 mL 1 12/21/2024 06/19/2025 Active Start: 06-14-2024 End: 12-21-2024 insulin lispro (HumaLOG KWIK PEN) 100 UNIT/ML injection Indications: Type 2 diabetes mellitus with hyperglycemia, with long-term current use of insulin ([facility]) Inject 4 Units under the skin in the morning and 4 Units at noon and 4 Units in the evening. Inject with meals. 10.8 mL 1 06/14/2024 12/21/2024 Discontinued (Reorder) 24 hr isosorbide mononitrate 30 mg extended release oral tablet (14 sources) Nitrate Vasodilator take 1 tablet by mouth in the morning, then take 1 tablet by mouth every twenty-four hours isosorbide mononitrate ER (Imdur) 30 MG 24 hr tablet Take 30 mg by mouth in the morning. Do not crush or chew. . Active lisinopril 20 mg oral tablet (14 sources) Angiotensin Converting Enzyme Inhibitor take 1 tablet by mouth in the morning lisinopril 20 MG tablet Take 20 mg by mouth in the morning. Active melatonin 5 mg oral tablet (14 sources) melatonin 5 MG t ablet 1 (one) time each day at the same time. Active 24 hr metoprolol succinate 50 mg extended release oral tablet (14 sources) beta-Adrenergic Gaudencio take 1 tablet by mouth every twenty-four hours metoprolol succinate XL (Toprol-XL) 50 MG 24 hr tablet Take 50 mg by mouth. Do not crush or chew. Active nitroglycerin 0.4 mg sublingual tablet (14 sources) Nitrate Vasodilator nitroglycerin (Nitrostat) 0.[address] 0.4 mg under the tongue every 5 (five) minutes if needed for chest pain. Active nystatin 100 unt/mg topical powder (14 sources) Polyene Antifungal Start: nystatin (Mycostatin) [id number] UNIT/GM powder Apply 2-3 application topically if needed for rash 01/06/2024 Active ondansetron 4 mg oral tablet (13 sources) Serotonin-3 Receptor Antagonist Start: 025 End: take 1 tablet by mouth every eight hours for nausea ondansetron (Zofran) 4 MG tablet Indications: Type 2 diabetes mellitus with hyperglycemia, with long-term current use of insulin ([facility]/HCC) Take 1 tablet (4 mg) by mouth every 8 (eight) hours if needed for nausea or vomiting 20 tablet 1 12/26/2024 03/26/2025 Active pantoprazole 40 mg delayed release oral tablet (14 sources) Proton Pump Inhibitor take 1 tablet by mouth before mealtime pantoprazole (ProtoNix) 40 MG EC tablet Take 40 mg by mouth in the morning. Take before meals. Do not crush, chew, or split. . Active polyethylene glycol 3350 31252 mg powder for oral solution (14 sources) Osmotic Laxative polyethylene gl ycol, PEG, 3350 (Miralax) 17 g packet Take by mouth. Active prazosin 2 mg oral capsule (14 sources) alpha-Adrenergic Gaudencio take 1 capsule by mouth at bedtime prazosin (Minipress) 2 MG capsule Take 2 mg by mouth at bedtime. Active 0.25 mg, 0.5 mg dose 1.5 ml semaglutide 1.34 mg/ml pen injector (7 sources) Start: 025 End: 025 inject 0.5 mg by subcutaneous injection every week semaglutide (Ozempic, 0.25 or 0.5 MG/DOSE,) 2 MG/1.5ML solution pen-injector Indications: Type 2 diabetes mellitus with hyperglycemia, with long-term current use of insulin ([facility]) Inject 0.5 mg under the skin 1 (one) time per week 4.5 mL 1 12/21/2024 06/07/2025 Active vitamin b12 1 mg oral tablet (14 sources) Vitamin B12 take 1 tablet by [...] Chronic Chronic obstructive pulmonary disease and bronchiectasis (15 sources) Chronic obstructive pulmonary disease, unspecified; Translations: [Chronic obstructive lung disease] Onset: 11-26-2022 4 Chronic Chronic ulcer of skin (14 sources) Non-pressure chronic ulcer of other part of right foot limited to breakdown of skin; Translations: [Ulcer of other part of foot] Onset: 02-01-2024 02-01-2024 Chronic Coronary atherosclerosis and other heart disease (1 source) Atherosclerotic heart disease of [place] coronary artery without angina pectoris; Translations: [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] Onset: 05-14-2022 Chronic [...] Onset: 05-14-2022 Chronic Disorders of lipid metabolism (20 sources) Pure hypercholesterolemia, unspecified; Translations: [Hyperlipidemia, unspecified] Onset: 05-14-2022 02-01-2024 Chronic Essential hypertension (19 sources) Essential (primary) hypertension; Translations: [Essential hypertension] Onset: 05-29-2019 02-01-2024 Chronic Genitourinary symptoms and ill-defined conditions (1 source) Personal history of urinary (tract) infections; Translations: [PERS HX URINARY TRACT INFECTIONS] Onset: 11-26-2022 Episodic Gout and other crystal arthropathies (1 source) Idiopathic gout, right ankle and foot; Translations: [IDIOPATHIC GOUT RIGHT ANKLE AND FOOT] Onset: 09-10-2022 Chronic Headache; including migraine (14 sources) Migraine; Translations: [Migraine, unspecified, not intractable, without status migrainosus] Onset: 02-01-2024 02-01-2024 Chronic Headache; including migraine (1 source) Headache; including migraine; Translations: [HEADACHE UNSPECIFIED] Onset: 05-14-2022 Heart valve disorders (20 sources) Nonrheumatic aortic (valve) stenosis; Translations: [Aortic stenosis, non-rheumatic ] Onset: 01-31-2018 02-01-2024 Chronic Miscellaneous mental health disorders (14 sources) Dream anxiety disorder; 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] Onset: 02-01-2024 02-01-2024 Chronic Mood disorders (15 sources) Major depressive disorder, single episode, unspecified; Translations: [Depressive disorder] Onset: 05-14-2022 02-01-2024 Chronic Mycoses (4 sources) Pain in toe; Translations: [Tinea unguium] 11-16-2024 Episodic Nutritional deficiencies (4 sources) Vitamin D deficiency; Translations: [Vitamin D deficiency, unspecified] 06-14-2024 Chronic Other aftercare (1 source) manager intermediate (current) use of insulin; Translations: [GM MOBILE CURRENT USE OF INSULIN] Onset: 11-26-2022 Episodic Other aftercare (1 source) Other alf (current) drug therapy; Translations: [OTH GM MOBILE CURRENT DRUG THERAPY] Onset: 11-26-2022 Episodic Other aftercare (1 source) [facility] (current) use of aspirin; Translations: [GM MOBILE CURRENT USE OF ASPIRIN] Onset: 11-26-2022 Episodic Other aftercare (4 sources) Long-term current use of insulin; Translations: [manager intermediate (current) use of insulin] 06-14-2024 Episodic Other [...] Chronic Other nutritional; endocrine; and metabolic disorders (14 sources) Body mass index 30+ - obesity; Translations: [Obesity, unspecified] Onset: 04-29-2021 02-01-2024 Chronic Other upper respiratory disease (14 sources) Allergic rhinitis; Translations: [Allergic rhinitis, unspecified] Onset: 02-01-2024 02-01-2024 Chronic Other upper respiratory infections (1 source) Acute upper respiratory infection, unspecified; Translations: [ACUTE UP RESPIRATORY INFECTION UNS] Onset: 11-26-2022 Episodic Screening and history of mental health and substance abuse codes (1 source) Personal history of nicotine dependence; Translations: [PERSONAL HISTORY OF NICOTINE DEPEND] Onset: 11-26-2022 Episodic Superficial injury; contusion (4 sources) Contusion of left foot; Translations: [Contusion [...] diseases classified elsewhere] Onset: 04-07-2022 Episodic [place] (14 sources) Partial thickness burn of right forearm; Translations: [Burn of second degree of right forearm, initial encounter] Onset: 01-06-2019 02-01-2024 Episodic Deficiency and other anemia (1 source) Iron deficiency anemia, unspecified; Translations: [IRON DEFICIENCY ANEMIA UNSPECIFIED] Onset: 05-14-2022 Episodic Diabetes mellitus without complication (14 sources) Hyperglycemia; Translations: [Hyperglycemia, unspecified] Onset: 01-06-2019 02-01-2024 Episodic E Codes: Fall (1 source) Unspecified fall, initial encounter; Translations: [UNSPECIFIED FALL INITIAL ENCOUNTER] Onset: 05-14-2022 Episodic Fluid and electrolyte disorders (19 sources) Hypo-osmolality and hyponatremia; Translations: [Hypokalemia] Onset: 01-06-2019 Episodic Fracture of upper limb (1 source) Unspecified fracture of upper end of left humerus, initial encounter for closed fracture; Translations: [UNS FX UPPER LT HUM INITIAL CLOS FX] Onset: 05-14-2022 Episodic Heart valve disorders (14 sources) Heart murmur; Translations: [Cardiac murmur, unspecified] Onset: 02-01-2024 02-01-2024 Episodic Immunizations and screening for infectious disease (1 source) Encounter for immunization; Translations: [ENCOUNTER FOR IMMUNIZATION] Onset: 05-14-2022 Episodic Malaise and fatigue (14 sources) Fatigue; Translations: [Other fatigue] Onset: 02-01-2024 02-01-2024 Episodic Nausea and vomiting (1 source) Nausea; Translations: [NAUSEA] Onset: 04-07-2022 Episodic Nonspecific chest pain (14 sources) Chest pain; Translations: [Chest pain, unspecified] [...] Onset: 05-07-2022 Episodic Other connective tissue disease (14 sources) Cramp in lower limb; Translations: [Cramp [...] on 12-21-2024 Glucose Blood, POC 432 mg/dL [facility] - Hematology and Cell countson 12-21-2024 HbA1c (Bld) [Mass fraction] 12.3 % [facility] No Panel InformationOrdered By: Edna Lloyd on 12-21-2024 [facility] Provider Letteron 11-15-2024 Provider Letter Provider Letter November 15, 2024 MORELIA GODOY [address] [place] [address] [address] [place] [id number] : 1955 Dear _ , We have [...] attention to this matter. Sincerely, Family Medicine [address] [address] [phone] Normal [facility] Glucose (Bld) [Mass/Vol]on Glucose Blood, POC 520 mg/dL [facility] HbA1c (Bld) [Mass fraction]o n 06-14-2024 [facility] - Hematology and Cell countson 06-14-2024 HbA1c (Bld) [Mass fraction] [facility] Covid-19 PCR (CVDTBH)on 11-11 SARS-CoV-2 (COVID-19) RNA IRVIN+probe Ql (Unsp spec) Not detected Normal NOT DETECTED [facility] Comment on above: Result Comment: When [...] for this test is supported by the [place] of Health and Human Service's declaration that [...] used). Performed By: #### P OCGLUC #### [facility] [address] [place] [address] Dr. Karmen Mccormick INFLUENZA A AND B [facility] 11-25 [facility] SEE BELOW Normal [facility] Comment on above: Result Comment: Nega tive for Flu A protein angiten. Infection due to Flu A cannot be ruled out. Flu A angiten in the sample may be below the detection limit of the test. Performed By: #### P OCGLUC #### [facility] [address] [place] [address] Dr. [facility] Normal [facility] Comment on above: Result Comment: Nega tive for Flu B protein antigen. Infection due to Flu B cannot be ruled out. Flu B antigen in the sample may be below the detection limit of the test. Performed By: #### P OCGLUC #### [facility] [address] [place] [address] Dr. Karmen Mccormick INFLUENZA A AG Negative Normal NEGATIVE SEE COMMENT [facility] Comment on above: Performed By: #### P OCGLUC #### [facility] [address] [place] [address] Dr. Karmen Mccomrick INFLUENZA B AG Negative Normal NEGATIVE SEE COMMENT [facility] Comment on above: Performed By: #### P OCGLUC #### [facility] [address] [place] [address] Dr. Karmen Mccormick XR CHEST 2 Von [...] by: JANICE CAMP Date: 2022-11-25 17:31 Normal [facility] XR FOOT RT MIN 3 VIEWSon XR [...] by: EUFEMIA LOPEZ Date: 2022-09-09 09:54 Normal [facility] OCC BLD IMMUNO SCREENon 04-15 OCCULT BLOOD Negative Normal NEGATIVE [facility] Comment on above: Performed By: #### B MP #### [facility] [address] [address] [address] Karmen Mccormick POINT OF CARE GLUCOSEon 04-15 Glucose [Mass/Vol] 99 mg/dL Normal 74-106 [facility] Comment on above: Performed By: #### P OCGLUC #### [facility] [address] [address] [address] Karmen Mccormick POINT OF CARE GLUCOSEon 04-14 Glucose [Mass/Vol] 139 mg/dL Critically high 74-106 [facility] Comment on above: Performed By: #### C VDTBH #### [facility] [address] [address] [address] Karmen Mccormick Glucose [Mass/Vol] 183 mg/dL Critically high -106 [facility] Comment on above: Performed By: #### P OCGLUC #### [facility] [address] [address] [address] Karmen Mccormick Glucose [Mass/Vol] 217 mg/dL Critically high -106 [facility] Comment on above: Performed By: #### P OCGLUC #### [facility] [address] [address] [address] Karmen Mccormick Glucose [Mass/Vol] 108 mg/dL Critically high [facility]106 [facility] Comment on above: Performed By: #### C VDTBH #### [facility] [address] [place] [address] Dr. Karmen Mccormick CULTURE URINEon 05-10-2022 CULTURE [...] F Trimethoprim/Sulfam ethoxazole <=20 S F Normal [facility] Comment on above: Performed By: #### P OCGLUC #### [facility] [address] [place] [address] Dr. Karmen Mccormick POINT OF CARE GLUCOSEon 04-14 Glucose [Mass/Vol] 194 mg/dL Critically high [address] [place] [address] Comment on above: Performed By: #### P OCGLUC #### [facility] [address] [place] [address] Dr. Karmen Mccormick Glucose [Mass/Vol] 135 mg/dL Critically high 74-106 [facility] Comment on above: Performed By: #### C BC #### [facility] [address] [address] [address] Karmen Mccormick Glucose [Mass/Vol] 208 mg/dL Critically high 74-106 [facility] Comment on above: Performed By: #### P OCGLUC #### [facility] [address] [address] [address] Karmen Mccormick Glucose [Mass/Vol] 79 mg/dL Normal 74-106 [facility] Comment on above: Performed By: #### P OCGLUC #### [facility] [address] [address] [address] Karmen Mccormick IRON AND TIBCon 05-09-2022 % SATURATION 9.9 % Normal [facility] Comment on above: Performed By: #### C BC #### [facility] [address] [address] [address] Karmen Mccormick Iron [Mass/Vol] 25.0 ug/dL Critically low 50.0-170.0 [facility] Comment on above: Performed By: #### C BC #### [facility] [address] [address] [address] Karmen Mccormick TIBC DIRECT 253.0 ug/dL Normal 250.0-450.0 [facility] Comment on above: Performed By: #### C BC #### [facility] [address] [address] [address] Karmen Mccormick POINT OF CARE GLUCOSEon 04-14 Glucose [Mass/Vol] 197 mg/dL Critically high -106 [facility] Comment on above: Performed By: #### P OCGLUC #### [facility] [address] [address] [address] Karmen Mccormick Glucose [Mass/Vol] 119 mg/dL Critically high 74-106 [facility] Comment on above: Performed By: #### C VDTBH #### [facility] [address] [address] [address] Karmen Mccormick Glucose [Mass/Vol] 176 mg/dL Critically high 74-106 [facility] Comment on above: Performed By: #### P OCGLUC #### [facility] [address] [place] [address] Dr. Karmen Mccormick Glucose [Mass/Vol] 118 mg/dL Critically high 74-106 [facility] Comment on above: Performed By: #### P OCGLUC #### [facility] [address] [place] [address] Dr. Karmen Mccormick VIT B12 AND FOLATEon 022 Cobalamin (Vitamin B12) [Mass/Vol] 613.0 pg/mL Normal 193.0-986.0 [facility] Comment on above: Performed By: #### P OCGLUC #### [facility] [address] [place] [address] Dr. Karmen Mccormick FOLATE 17.90 ng/mL Normal 8.60-58.90 [facility] Comment on above: Performed By: #### P OCGLUC #### [facility] [address] [place] [address] Dr. Karmen Mccormick CBC AUTO DIFFon 05-08-2022 BASO # 0.0 103/ul Normal 0.0-0.1 [facility] Comment on above: Performed By: #### P OCGLUC #### [facility] [address] [place] [address] Dr. Karmen Mccormick Basophils/100 WBC (Bld) 0.4 % Normal 0.2-2.0 [facility] Comment on above: Performed By: #### P OCGLUC #### [facility] [address] [place] [address] Dr. Karmen Mccormick EO # 0.2 103/ul Normal 0.0-0.7 [facility] Comment on above: Performed By: #### P OCGLUC #### [facility] [address] [place] [address] Dr. Karmen Mccormick Eosinophils/100 WBC (Bld) 2.3 % Normal 0.9-7.0 [facility] Comment on above: Performed By: #### P OCGLUC #### [facility] [address] [address] [address] Karmen Mccormick Erythrocyte distribution width (RBC) [Ratio] 13.6 % Normal 11.0-15.0 [facility] Comment on above: Performed By: #### P OCGLUC #### [facility] [address] [place] [address] Dr. Karmen Mccormick Hematocrit (Bld) [Volume fraction] 33.6 % Critically low 36.0-48.0 [facility] Comment on above: Performed By: #### P OCGLUC #### [facility] [address] [place] [address] Dr. Karmen Mccormick Hemoglobin (Bld) [Mass/Vol] 10.5 g/dL Critically low 12.0-16.0 [facility] Comment on above: Performed By: #### P OCGLUC #### [facility] [address] [place] [address] Dr. Karmen Mccormick IG # 0.03 10e3/ul Normal 0.00-0.03 [facility] Comment on above: Performed By: #### P OCGLUC #### [facility] [address] [place] [address] Dr. Karmen Mccormick IG % 0.3 % Normal 0.0-0.5 [facility] Comment on above: Performed By: #### P OCGLUC #### [facility] [address] [place] [address] Dr. Karmen Mccormick LYMPH # 1.6 103/ul Normal 1.2-3.8 [facility] Comment on above: Performed By: #### P OCGLUC #### [facility] [address] [place] [address] Dr. Karmen Mccormick Lymphocytes/100 WBC (Bld) 17.1 % Critically low 20.5-60.0 [facility] Comment on above: Performed By: #### P OCGLUC #### [facility] [address] [place] [address] Dr. Karmen Mccormick MANUAL DIFF REQ NO Normal [facility] Comment on above: Performed By: #### P OCGLUC #### [facility] [address] [address] [address] Karmen Mccormick MCH (RBC) [Entitic mass] 29.1 pg Normal 26.7-34.0 [facility] Comment on above: Performed By: #### P OCGLUC #### [facility] [address] [place] [address] Dr. Karmen Mccormick MCHC (RBC) [Mass/Vol] 31.3 g/dL Normal 29.9-35.2 [facility] Comment on above: Performed By: #### P OCGLUC #### [facility] [address] [place] [address] Dr. Karmen Mccormick MCV (RBC) [Entitic vol] 93.1 fL Normal 81.0-99.0 [facility] Comment on above: Performed By: #### P OCGLUC #### [facility] [address] [place] [address] Dr. Karmen Mccormick MONO # 0.6 103/ul Normal 0.3-0.8 [facility] Comment on above: Performed By: #### P OCGLUC #### [facility] [address] [place] [address] Dr. Karmen Mccormick Monocytes/100 WBC (Bld) 6.4 % Normal 1.7-12.0 [facility] Comment on above: Performed By: #### P OCGLUC #### [facility] [address] [place] [address] Dr. Karmen Mccormick NEUT # 6.8 103/ul Critically high 1.4-6.5 [facility] Comment on above: Performed By: #### P OCGLUC #### [facility] [address] [place] [address] Dr. Karmen Mccormick Neutrophils/100 WBC (Bld) 73.5 % Normal 43.0-75.0 [facility] Comment on above: Performed By: #### P OCGLUC #### [facility] [address] [place] [address] Dr. Karmen Mccormick Platelet mean volume (Bld) [Entitic vol] 10.0 fL Normal 9.5-13.5 [facility] Comment on above: Performed By: #### P OCGLUC #### [facility] [address] [address] [address] Karmen Mccormick PLT 223 103/ul Normal 150-450 [facility] Comment on above: Performed By: #### P OCGLUC #### [facility] [address] [address] [address] Karmen Mccormick RBC 3.61 106/ul Critically low 4.20-5.40 [facility] Comment on above: Performed By: #### P OCGLUC #### [facility] [address] [address] [address] Karmen Mccormick WBC 9.3 103/ul Normal 4.0-11.0 [facility] Comment on above: Performed By: #### P OCGLUC #### [facility] [address] [address] [address] Karmen Mccormick POINT OF CARE GLUCOSEon 04-14 Glucose [Mass/Vol] 163 mg/dL Critically high 74-106 [facility] Comment on above: Performed By: #### P OCGLUC #### [facility] [address] [address] [address] Karmen Mccormick Glucose [Mass/Vol] 87 mg/dL Normal 74-106 [facility] Comment on above: Performed By: #### P OCGLUC #### [facility] [address] [place] [address] Dr. Karemn Mccormick Glucose [Mass/Vol] 183 mg/dL Critically high 74-106 [facility] Comment on above: Performed By: #### C BC #### [facility] [address] [address] [address] Karmen Mccormick Glucose [Mass/Vol] 146 mg/dL Critically high 74-106 [facility] Comment on above: Performed By: #### P OCGLUC #### [facility] [address] [place] [address] Dr. Karmen Mccormick PROF CHEM 8 (BAS METB)on Anion gap [Moles/Vol] 11.7 mmol/L Normal [facility] Comment on above: Performed By: #### C BC #### [facility] [address] [address] [address] Karmen Mccormick Calcium [Mass/Vol] 8.4 mg/dL Critically low 8.5-10.1 [facility] Comment on above: Performed By: #### C BC #### [facility] [address] [address] [address] Karmen Mccormick Chloride [Moles/Vol] 104 mmol/L Normal 98-107 [facility] Comment on above: Performed By: #### C BC #### [facility] [address] [address] [address] Karmen Mccormick CO2 [Moles/Vol] 25.2 mmol/L Normal 21.0-32.0 [facility] Comment on above: Performed By: #### C BC #### [facility] [address] [place] [address] Dr. Karmen Mccormick Creatinine [Mass/Vol] 0.82 mg/dL Normal 0.55-1.02 [facility] Comment on above: Performed By: #### C BC #### [facility] [address] [place] [address] Dr. Karmen Mccormick EGFR-AF GREEK >60 Normal >=60 [facility] Comment on above: Performed By: #### C BC #### [facility] [address] [place] [address] Dr. Karmen Mccormick EGFR-NON AF GREEK >60 Normal >=60 [facility] Comment on above: Performed By: #### C BC #### [facility] [address] [place] [address] Dr. Karmen Mccormick Glucose [Mass/Vol] 175 mg/dL Critically high 74-106 [facility] Comment on above: Performed By: #### C BC #### [facility] [address] [place] [address] Dr. Karmen Mccormick Potassium [Moles/Vol] 4.9 mmol/L Normal 3.5-5.1 [facility] Comment on above: Performed By: #### C BC #### [facility] [address] [address] [address] Karmen Mccormick Sodium [Moles/Vol] 136 mmol/L Normal 136-145 [facility] Comment on above: Performed By: #### C BC #### [facility] [address] [place] [address] Dr. Karmen Mccormick Urea nitrogen [Mass/Vol] 25.0 mg/dL Critically high 7.0-18.0 [facility] Comment on above: Performed By: #### C BC #### [facility] [address] [place] [address] Dr. Karmen Mccormick Urea nitrogen/Creatinine [Mass ratio] 30.5 mg/mg Normal [facility] Comment on above: Performed By: #### C BC #### [facility] [address] [place] [address] Dr. Karmen Mccormick UA RANDOM W/MICROSCOPICon BACTERIA SMALL Abnormal NONE SEEN [facility] Comment on above: Performed By: #### B MP #### [facility] [address] [place] [address] Dr. Karmen Mccormick Bilirubin Ql (U) Negative Normal NEGATIVE [facility] Comment on above: Performed By: #### B MP #### [facility] [address] [place] [address] Dr. Karmen Mccormick CAST NONE SEEN Normal NONE [facility] Comment on above: Performed By: #### B MP #### [facility] [address] [place] [address] Dr. Karmen Mccormick Clarity (U) CLEAR Normal CLEAR [facility] Comment on above: Performed By: #### B MP #### [facility] [address] [place] [address] Dr. Karmen Mccormick Color (U) LT. YELLOW Normal YELLOW [facility] Comment on above: Performed By: #### B MP #### [facility] [address] [place] [address] Dr. Karmen Mccormick Crystals LM Nom (Urine sed) NONE SEEN Normal NONE SEEN [facility] Comment on above: Performed By: #### B MP #### [facility] [address] [place] [address] Dr. Karmen Mccormick Epithelial cells LM Ql (Urine sed) RARE Normal NONE SEEN /RARE [facility] Comment on above: Performed By: #### B MP #### [facility] [address] [address] [address] Karmen Mccormick Glucose Ql (U) >1000 Abnormal NEGATIVE [facility] Comment on above: Performed By: #### B MP #### [facility] [address] [address] [address] Karmen Mccormick Hemoglobin Ql (U) MODERATE Abnormal NEGATIVE [facility] Comment on above: Performed By: #### B MP #### [facility] [address] [address] [address] Karmen Mccormick Ketones Ql (U) Negative Normal NEGATIVE [facility] Comment on above: Performed By: #### B MP #### [facility] [address] [place] [address] Dr. Karmen Mccormick LEUKOCYTES TRACE Abnormal NEGATIVE [facility] Comment on above: Performed By: #### B MP #### [facility] [address] [address] [address] Karmen Mccormick MUCOUS NONE SEEN Normal NONE SEEN [facility] Comment on above: Performed By: #### B MP #### [facility] [address] [place] [address] Dr. Karmen Mccormick Nitrite Ql (U) Positive Abnormal NEGATIVE [facility] Comment on above: Performed By: #### B MP #### [facility] [address] [address] [address] Karmen Mccormick pH (U) 6.0 [pH] Normal 5-9 [facility] Comment on above: Performed By: #### B MP #### [facility] [address] [place] [address] Dr. Karmen Mccormick RBC 10-20 Abnormal 0-2 [facility] Comment on above: Performed By: #### B MP #### [facility] [address] [place] [address] Dr. Karmen Mccormick SPEC GRAVITY 1.020 Normal 1.005-<=1.025 [facility] Comment on above: Performed By: #### B MP #### [facility] [address] [place] [address] Dr. Karmen Mccormick UA PROTEIN TRACE Normal NEGATIVE/ TRACE [facility] Comment on above: Performed By: #### B MP #### [facility] [address] [place] [address] Dr. Karmen Mccormick Urobilinogen Qn (U) 0.2 {Rajeev'U}/dL Normal 0.2 - 1. 0 [facility] Comment on above: Performed By: #### B MP #### [facility] [address] [place] [address] Dr. Karmen Mccormick WBC 5-10 Abnormal NONE SEEN [facility] Comment on above: Performed By: #### B MP #### [facility] [address] [place] [address] Dr. Karmen Mccormick CBC AUTO DIFFon 05-07-2022 BASO # 0.1 103/ul Normal 0.0-0.1 [facility] Comment on above: Performed By: #### A CETON #### [facility] [address] [place] [address] Dr. Karmen Mccormick Basophils/100 WBC (Bld) 0.5 % Normal 0.2-2.0 [facility] Comment on above: Performed By: #### A CETON #### [facility] [address] [place] [address] Dr. Karmen Mccormick EO # 0.2 103/ul Normal 0.0-0.7 [facility] Comment on above: Performed By: #### A CETON #### [facility] [address] [place] [address] Dr. Karmen Mccormick Eosinophils/100 WBC (Bld) 1.6 % Normal 0.9-7.0 [facility] Comment on above: Performed By: #### A CETON #### [facility] [address] [place] [address] Dr. Karmen Mccormick Erythrocyte distribution width (RBC) [Ratio] 13.4 % Normal 11.0-15.0 [facility] Comment on above: Performed By: #### A CETON #### [facility] [address] [address] [address] Karmen Mccormick Hematocrit (Bld) [Volume fraction] 38.0 % Normal 36.0-48.0 [facility] Comment on above: Performed By: #### A CETON #### [facility] [address] [place] [address] Dr. Karmen Mccormick Hemoglobin (Bld) [Mass/Vol] 12.3 g/dL Normal 12.0-16.0 [facility] Comment on above: Performed By: #### A CETON #### [facility] [address] [address] [address] Karmen Mccormick IG # 0.06 10e3/ul Critically high 0.00-0.03 [facility] Comment on above: Performed By: #### A CETON #### [facility] [address] [place] [address] Dr. Karmen Mccormick IG % 0.5 % Normal 0.0-0.5 [facility] Comment on above: Performed By: #### A CETON #### [facility] [address] [address] [address] Karmen Mccormick LYMPH # 1.5 103/ul Normal 1.2-3.8 [facility] Comment on above: Performed By: #### A CETON #### [facility] [address] [place] [address] Dr. Karmen Mccormick Lymphocytes/100 WBC (Bld) 12.0 % Critically low 20.5-60.0 [facility] Comment on above: Performed By: #### A CETON #### [facility] [address] [place] [address] Dr. Karmen Mccormick MANUAL DIFF REQ NO Normal [facility] Comment on above: Performed By: #### A CETON #### [facility] [address] [place] [address] Dr. Karmen Mccormick MCH (RBC) [Entitic mass] 29.6 pg Normal 26.7-34.0 [facility] Comment on above: Performed By: #### A CETON #### [facility] [address] [address] [address] Karmen Mccormick MCHC (RBC) [Mass/Vol] 32.4 g/dL Normal 29.9-35.2 [facility] Comment on above: Performed By: #### A CETON #### [facility] [address] [address] [address] Karmen Mccormick MCV (RBC) [Entitic vol] 91.6 fL Normal 81.0-99.0 [facility] Comment on above: Performed By: #### A CETON #### [facility] [address] [place] [address] Dr. Karmen Mccormick MONO # 0.7 103/ul Normal 0.3-0.8 [facility] Comment on above: Performed By: #### A CETON #### [facility] [address] [place] [address] Dr. Karmen Mccormick Monocytes/100 WBC (Bld) 5.1 % Normal 1.7-12.0 [facility] Comment on above: Performed By: #### A CETON #### [facility] [address] [place] [address] Dr. Karmen Mccormick NEUT # 10.3 103/ul Critically high 1.4-6.5 [facility] Comment on above: Performed By: #### A CETON #### [facility] [address] [place] [address] Dr. Karmen Mccormick Neutrophils/100 WBC (Bld) 80.3 % Critically high 43.0-75.0 [facility] Comment on above: Performed By: #### A CETON #### [facility] [address] [address] [address] Karmen Mccormick Platelet mean volume (Bld) [Entitic vol] 10.0 fL Normal 9.5-13.5 [facility] Comment on above: Performed By: #### A CETON #### [facility] [address] [place] [address] Dr. Karmen Mccormick PLT 280 103/ul Normal 150-450 [facility] Comment on above: Performed By: #### A CETON #### [facility] [address] [place], [place] [address] Dr. Karmen Mccormick RBC 4.15 106/ul Critically low 4.20-5.40 [facility] Comment on above: Performed By: #### A CETON #### [facility] [address] [place], [place] [address] Dr. Karmen Mccormick WBC 12.8 103/ul Critically high 4.0-11.0 [facility] Comment on above: Performed By: #### A CETON #### [facility] [address] [place], [place] [address] CSPINE WO CONon [...] TEJAS CHRISTOPHER Date: 2022-05-07 14:44 Normal [facility] CT HEAD WO CONon 05-07-2022 CT [...] TEJAS CHRISTOPHER Date: 2022-05-07 14:35 Normal [facility] Covid-19 PCR (CVDTBH)on 04-14 SARS-CoV-2 (COVID-19) RNA IRVIN+probe Ql (Unsp spec) Not detected Normal NOT DETECTED [facility] Comment on above: Result Comment: When [...] for this test is supported by the [place] of Health and Human Service's declaration that [...] used). Performed By: #### A CETON #### [facility] [address] [place] [address] Dr. Karmen Mccormick POINT OF CARE GLUCOSEon 04-14 Glucose [Mass/Vol] 167 mg/dL Critically high 74-106 [facility] Comment on above: Performed By: #### C VDTBH #### [facility] [address] [place] [address] Dr. Karmen Mccormick Glucose [Mass/Vol] 207 mg/dL Critically high 74-106 [facility] Comment on above: Performed By: #### B MP #### [facility] [address] [place] [address] Dr. Karmen Mccormick PROF CHEM 8 (BAS METB)on Anion gap [Moles/Vol] 12.7 mmol/L Normal [facility] Comment on above: Performed By: #### P OCGLUC #### [facility] [address] [place] [address] Dr. Karmen Mccormick Calcium [Mass/Vol] 8.9 mg/dL Normal 8.5-10.1 [facility] Comment on above: Performed By: #### P OCGLUC #### [facility] [address] [place] [address] Dr. Karmen Mccormick Chloride [Moles/Vol] 104 mmol/L Normal 98-107 [facility] Comment on above: Performed By: #### P OCGLUC #### [facility] [address] [place] [address] Dr. Karmen Mccormick CO2 [Moles/Vol] 26.5 mmol/L Normal 21.0-32.0 [facility] Comment on above: Performed By: #### P OCGLUC #### [facility] [address] [place] [address] Dr. Karmen Mccormick Creatinine [Mass/Vol] 0.95 mg/dL Normal 0.55-1.02 [facility] Comment on above: Performed By: #### P OCGLUC #### [facility] [address] [place] [address] Dr. Karmen Mccormick EGFR-AF GREEK >60 Normal >=60 [facility] Comment on above: Performed By: #### P OCGLUC #### [facility] [address] [place] [address] Dr. Karmen Mccormick EGFR-NON AF GREEK 58 mL/min/1.73m2 Critically low >=60 [facility] Comment on above: Performed By: #### P OCGLUC #### [facility] [address] [address] [address] Karmen Mccormick Glucose [Mass/Vol] 245 mg/dL Critically high 74-106 [facility] Comment on above: Performed By: #### P OCGLUC #### [facility] [address] [address] [address] Karmen Mccormick Potassium [Moles/Vol] 5.2 mmol/L Critically high 3.5-5.1 [facility] Comment on above: Performed By: #### P OCGLUC #### [facility] [address] [address] [address] Karmen Mccormick Sodium [Moles/Vol] 138 mmol/L Normal 136-145 [facility] Comment on above: Performed By: #### P OCGLUC #### [facility] [address] [address] [address] Karmen Mccormick Urea nitrogen [Mass/Vol] 24.0 mg/dL Critically high 7.0-18.0 [facility] Comment on above: Performed By: #### P OCGLUC #### [facility] [address] [address] [address] Karmen Mccormick Urea nitrogen/Creatinine [Mass ratio] 25.3 mg/mg Normal [facility] Comment on above: Performed By: #### P OCGLUC #### [facility] [address] [address] [address] Karmen Mccormick GLYCOHEMOGLOBIN A1Con 2021 ADA RECOMMENDATION SEE BELOW Normal [facility] Comment on above: Result Comment: ADA RECOMMENDED LIMIT 4.0 - 6.0 ADA THERAPEUTIC TARGET < 7.0 ACTION SUGGESTED > 7.0 Performed By: #### P OCGLUC #### [facility] [address] [address] [address] Karmen Mccormick Glucose [Mass/Vol] 315 mg/dL Normal [facility] Comment on above: Performed By: #### P OCGLUC #### [facility] [address] [address] [address] Karmen Mccormick HbA1c (Bld) [Mass fraction] 12.6 % Critically high 4.5-6.2 [facility] Comment on above: Performed By: #### P OCGLUC #### [facility] [address] [address] [address] Karmen Mccormick PROF CHEM 8 (BAS METB)on Anion gap [Moles/Vol] 14.9 mmol/L Normal [facility] Comment on above: Performed By: #### P OCGLUC #### [facility] [address] [address] [address] Karmen Mccormick Calcium [Mass/Vol] 8.7 mg/dL Normal 8.5-10.1 [facility] Comment on above: Performed By: #### P OCGLUC #### [facility] [address] [address] [address] Karmen Mccormick Chloride [Moles/Vol] 102 mmol/L Normal 98-107 [facility] Comment on above: Performed By: #### P OCGLUC #### [facility] [address] [address] [address] Karmen Mccormick CO2 [Moles/Vol] 22.7 mmol/L Normal 21.0-32.0 [facility] Comment on above: Performed By: #### P OCGLUC #### [facility] [address] [address] [address] Karmen Mccormick Creatinine [Mass/Vol] 0.73 mg/dL Normal 0.55-1.02 [facility] Comment on above: Performed By: #### P OCGLUC #### [facility] [address] [address] [address] Karmen Mccormick EGFR-AF GREEK >60 Normal >=60 [facility] Comment on above: Performed By: #### P OCGLUC #### [facility] [address] [address] [address] Karmen Mccormick EGFR-NON AF GREEK >60 Normal >=60 [facility] Comment on above: Performed By: #### P OCGLUC #### [facility] [address] [address] [address] Karmen Mccormick Glucose [Mass/Vol] 290 mg/dL Critically high 74-106 [facility] Comment on above: Performed By: #### P OCGLUC #### [facility] [address] [address] [address] Karmen Mccormick Potassium [Moles/Vol] 4.6 mmol/L Normal 3.5-5.1 [facility] Comment on above: Performed By: #### P OCGLUC #### [facility] [address] [address] [address] Karmen Mccormick Sodium [Moles/Vol] 135 mmol/L Critically low 136-145 [facility] Comment on above: Performed By: #### P OCGLUC #### [facility] [address] [place] [address] Dr. Karmen Mccormick Urea nitrogen [Mass/Vol] 17.0 mg/dL Normal 7.0-18.0 [facility] Comment on above: Performed By: #### P OCGLUC #### [facility] [address] [address] [address] Karmen Mccormick Urea nitrogen/Creatinine [Mass ratio] 23.3 mg/mg Normal [facility] Inc Comment on above: Performed By: #### P OCGLUC #### [facility] [address] [place] [address] Dr. Karmen Mccormick CBC AUTO DIFFon 04-09-2022 BASO # 0.1 103/ul Normal 0.0-0.1 [facility] Comment on above: Performed By: #### P OCGLUC #### [facility] [address] [address] [address] Karmen Mccormick Basophils/100 WBC (Bld) 0.8 % Normal 0.2-2.0 [facility] Comment on above: Performed By: #### P OCGLUC #### [facility] [address] [address] [address] Karmen Mccormick EO # 0.2 103/ul Normal 0.0-0.7 [facility] Comment on above: Performed By: #### P OCGLUC #### [facility] [address] [address] [address] Karmen Mccormick Eosinophils/100 WBC (Bld) 2.5 % Normal 0.9-7.0 [facility] Comment on above: Performed By: #### P OCGLUC #### [facility] [address] [place] [address] Dr. Karmen Mccormick Erythrocyte distribution width (RBC) [Ratio] 13.2 % Normal 11.0-15.0 [facility] Comment on above: Performed By: #### P OCGLUC #### [facility] [address] [place] [address] Dr. Karmen Mccormick Hematocrit (Bld) [Volume fraction] 33.9 % Critically low 36.0-48.0 [facility] Comment on above: Performed By: #### P OCGLUC #### [facility] [address] [place] [address] Dr. Karmen Mccormick Hemoglobin (Bld) [Mass/Vol] 11.5 g/dL Critically low 12.0-16.0 [facility] Comment on above: Performed By: #### P OCGLUC #### [facility] [address] [place] [address] Dr. Karmen Mccormick IG # 0.04 10e3/ul Critically high 0.00-0.03 [facility] Comment on above: Performed By: #### P OCGLUC #### [facility] [address] [place] [address] Dr. Karmen Mccormick IG % 0.5 % Normal 0.0-0.5 [facility] Comment on above: Performed By: #### P OCGLUC #### [facility] [address] [place] [address] Dr. Karmen Mccormick LYMPH # 1.8 103/ul Normal 1.2-3.8 [facility] Comment on above: Performed By: #### P OCGLUC #### [facility] [address] [place] [address] Dr. Karmen Mccormick Lymphocytes/100 WBC (Bld) 20.2 % Critically low 20.5-60.0 [facility] Comment on above: Performed By: #### P OCGLUC #### [facility] [address] [address] [address] Karmen Mccormick MANUAL DIFF REQ NO Normal [facility] Comment on above: Performed By: #### P OCGLUC #### [facility] [address] [address] [address] Karmen Mccormick MCH (RBC) [Entitic mass] 29.3 pg Normal 26.7-34.0 [facility] Comment on above: Performed By: #### P OCGLUC #### [facility] [address] [address] [address] Karmen Mccormick MCHC (RBC) [Mass/Vol] 33.9 g/dL Normal 29.9-35.2 [facility] Comment on above: Performed By: #### P OCGLUC #### [facility] [address] [place] [address] Dr. Karmen Mccormick MCV (RBC) [Entitic vol] 86.3 fL Normal 81.0-99.0 [facility] Comment on above: Performed By: #### P OCGLUC #### [facility] [address] [address] [address] Karmen Mccormick MONO # 0.5 103/ul Normal 0.3-0.8 [facility] Comment on above: Performed By: #### P OCGLUC #### [facility] [address] [place] [address] Dr. Karmen Mccormick Monocytes/100 WBC (Bld) 6.1 % Normal 1.7-12.0 [facility] Comment on above: Performed By: #### P OCGLUC #### [facility] [address] [place] [address] Dr. Karmen Mccormick NEUT # 6.1 103/ul Normal 1.4-6.5 [facility] Comment on above: Performed By: #### P OCGLUC #### [facility] [address] [address] [address] Karmen Mccormick Neutrophils/100 WBC (Bld) 69.9 % Normal 43.0-75.0 [facility] Comment on above: Performed By: #### P OCGLUC #### [facility] [address] [address] [address] Karmen Mccormick Platelet mean volume (Bld) [Entitic vol] 9.5 fL Normal 9.5-13.5 [facility] Comment on above: Performed By: #### P OCGLUC #### [facility] [address] [address] [address] Karmen Mccormick PLT 335 103/ul Normal 150-450 [facility] Comment on above: Performed By: #### P OCGLUC #### [facility] [address] [address] [address] Karmen Mccormick RBC 3.93 106/ul Critically low 4.20-5.40 [facility] Comment on above: Performed By: #### P OCGLUC #### [facility] [address] [address] [address] Karmen Mccormick WBC 8.8 103/ul Normal 4.0-11.0 [facility] Comment on above: Performed By: #### P OCGLUC #### [facility] [address] [address] [address] Karmen Mccormick CRPon 04-09-2022 CRP [Mass/Vol] mg/L Normal <=1.0 [facility] Comment on above: Performed By: #### P OCGLUC #### [facility] [address] [address] [address] Karmen Mccormick PROF 14(COMP METB)on 022 Albumin [Mass/Vol] 3.1 g/dL Critically low 3.4-5.0 [facility] Comment on above: Performed By: #### P OCGLUC #### [facility] [address] [address] [address] Karmen Mccormick Albumin/Globulin [Mass ratio] 0.9 {ratio} Normal [facility] Comment on above: Performed By: #### P OCGLUC #### [facility] [address] [address] [address] Karmen Mccormick ALP [Catalytic activity/Vol] 86 U/L Normal 46-116 [facility] Comment on above: Performed By: #### P OCGLUC #### [facility] [address] [address] [address] Karmen Mccormick ALT [Catalytic activity/Vol] 23 U/L Normal 14-59 [facility] Comment on above: Performed By: #### P OCGLUC #### [facility] [address] [address] [address] Karmen Mccormick Anion gap [Moles/Vol] 14.5 mmol/L Normal [facility] Comment on above: Performed By: #### P OCGLUC #### [facility] [address] [address] [address] Karmen Mccormick AST [Catalytic activity/Vol] 11 U/L Critically low 15-37 [facility] Comment on above: Performed By: #### P OCGLUC #### [facility] [address] [address] [address] Karmen Mccormick Bilirubin [Mass/Vol] 0.3 mg/dL Normal 0.2-1.0 [facility] Comment on above: Performed By: #### P OCGLUC #### [facility] [address] [address] [address] Karmen Mccormick Calcium [Mass/Vol] 8.8 mg/dL Normal 8.5-10.1 [facility] Comment on above: Performed By: #### P OCGLUC #### [facility] [address] [address] [address] Karmen Mccormick Chloride [Moles/Vol] 96 mmol/L Critically low 98-107 [facility] Comment on above: Performed By: #### P OCGLUC #### [facility] [address] [address] [address] Karmen Mccormick CO2 [Moles/Vol] 24.5 mmol/L Normal 21.0-32.0 [facility] Comment on above: Performed By: #### P OCGLUC #### [facility] [address] [address] [address] Karmen Mccormick Creatinine [Mass/Vol] 0.88 mg/dL Normal 0.55-1.02 [facility] Comment on above: Performed By: #### P OCGLUC #### [facility] [address] [address] [address] Karmen Mccormick EGFR-AF GREEK >60 Normal >=60 [facility] Comment on above: Performed By: #### P OCGLUC #### [facility] [address] [address] [address] Karmen Mccormick EGFR-NON AF GREEK >60 Normal >=60 [facility] Comment on above: Performed By: #### P OCGLUC #### [facility] [address] [address] [address] Karmen Mccormick Globulin (S) [Mass/Vol] 3.6 g/dL Normal [facility] Comment on above: Performed By: #### P OCGLUC #### [facility] [address] [address] [address] Karmen Mccormick Glucose [Mass/Vol] 479 mg/dL Critically high 74-106 [facility] Comment on above: Performed By: #### P OCGLUC #### [facility] [address] [address] [address] Karmen Mccormick Potassium [Moles/Vol] 5.0 mmol/L Normal 3.5-5.1 [facility] Comment on above: Performed By: #### P OCGLUC #### [facility] [address] [address] [address] Karmen Mccormick Protein [Mass/Vol] 6.7 g/dL Normal 6.4-8.2 [facility] Comment on above: Performed By: #### P OCGLUC #### [facility] [address] [address] [address] Karmen Mccormick Sodium [Moles/Vol] 130 mmol/L Critically low 136-145 [facility] Comment on above: Performed By: #### P OCGLUC #### [facility] [address] [address] [address] Karmen Mccormick Urea nitrogen [Mass/Vol] 18.0 mg/dL Normal 7.0-18.0 [facility] Comment on above: Performed By: #### P OCGLUC #### [facility] [address] [address] [address] Karmen Mccormick Urea nitrogen/Creatinine [Mass ratio] 20.5 mg/mg Normal [facility] Comment on above: Performed By: #### P OCGLUC #### [facility] [address] [address] [address] Karmen Mccormick SED RATE WESTERGRENon 2021 SED RATE 33 mm/hr Critically high <=30 [facility] Comment on above: Performed By: #### P OCGLUC #### [facility] [address] [address] [address] Karmen Mccormick CBC AUTO DIFFon 04-02-2022 BASO # 0.0 103/ul Normal 0.0-0.1 [facility] Comment on above: Performed By: #### P OCGLUC #### [facility] [address] [place] [address] Dr. Karmen Mccormick Basophils/100 WBC (Bld) 0.5 % Normal 0.2-2.0 [facility] Comment on above: Performed By: #### P OCGLUC #### [facility] [address] [address] [address] Karmen Mccormick EO # 0.4 103/ul Normal 0.0-0.7 [facility] Comment on above: Performed By: #### P OCGLUC #### [facility] [address] [place] [address] Dr. Karmen Mccormick Eosinophils/100 WBC (Bld) 4.4 % Normal 0.9-7.0 [facility] Comment on above: Performed By: #### P OCGLUC #### [facility] [address] [place] [address] Dr. Karmen Mccormick Erythrocyte distribution width (RBC) [Ratio] 13.2 % Normal 11.0-15.0 [facility] Comment on above: Performed By: #### P OCGLUC #### [facility] [address] [place] [address] Dr. Karmen Mccormick Hematocrit (Bld) [Volume fraction] 32.4 % Critically low 36.0-48.0 [facility] Comment on above: Performed By: #### P OCGLUC #### [facility] [address] [address] [address] Karmen Mccormick Hemoglobin (Bld) [Mass/Vol] 10.3 g/dL Critically low 12.0-16.0 [facility] Comment on above: Performed By: #### P OCGLUC #### [facility] [address] [address] [address] Karmen Mccormick IG # 0.04 10e3/ul Critically high 0.00-0.03 [facility] Comment on above: Performed By: #### P OCGLUC #### [facility] [address] [address] [address] Karmen Mccormick IG % 0.5 % Normal 0.0-0.5 [facility] Comment on above: Performed By: #### P OCGLUC #### [facility] [address] [address] [address] Karmen Mccormick LYMPH # 1.9 103/ul Normal 1.2-3.8 [facility] Comment on above: Performed By: #### P OCGLUC #### [facility] [address] [address] [address] Karmen Mccormick Lymphocytes/100 WBC (Bld) 23.2 % Normal 20.5-60.0 [facility] Comment on above: Performed By: #### P OCGLUC #### [facility] [address] [address] [address] Karmen Mccormick MANUAL DIFF REQ NO Normal [facility] Comment on above: Performed By: #### P OCGLUC #### [facility] [address] [address] [address] Karmen Mccormick MCH (RBC) [Entitic mass] 29.0 pg Normal 26.7-34.0 [facility] Comment on above: Performed By: #### P OCGLUC #### [facility] [address] [address] [address] Karmen Mccormick MCHC (RBC) [Mass/Vol] 31.8 g/dL Normal 29.9-35.2 [facility] Comment on above: Performed By: #### P OCGLUC #### [facility] [address] [address] [address] Karmen Mccormick MCV (RBC) [Entitic vol] 91.3 fL Normal 81.0-99.0 [facility] Comment on above: Performed By: #### P OCGLUC #### [facility] [address] [address] [address] Karmen Mccormick MONO # 0.6 103/ul Normal 0.3-0.8 [facility] Comment on above: Performed By: #### P OCGLUC #### [facility] [address] [address] [address] Karmen Mccormick Monocytes/100 WBC (Bld) 7.2 % Normal 1.7-12.0 [facility] Comment on above: Performed By: #### P OCGLUC #### [facility] [address] [place] [address] Dr. Karmen Mccormick NEUT # 5.2 103/ul Normal 1.4-6.5 [facility] Comment on above: Performed By: #### P OCGLUC #### [facility] [address] [place] [address] Dr. Karmen Mccormick Neutrophils/100 WBC (Bld) 64.2 % Normal 43.0-75.0 [facility] Comment on above: Performed By: #### P OCGLUC #### [facility] [address] [address] [address] Karmen Mccormick Platelet mean volume (Bld) [Entitic vol] 9.3 fL Critically low 9.5-13.5 [facility] Comment on above: Performed By: #### P OCGLUC #### [facility] [address] [address] [address] Karmen Mccormick PLT 236 103/ul Normal 150-450 [facility] Comment on above: Performed By: #### P OCGLUC #### [facility] [address] [place] [address] Dr. Karmen Mccormick RBC 3.55 106/ul Critically low 4.20-5.40 [facility] Comment on above: Performed By: #### P OCGLUC #### [facility] [address] [address] [address] Karmen Mccormick WBC 8.2 103/ul Normal 4.0-11.0 [facility] Comment on above: Performed By: #### P OCGLUC #### [facility] [address] [address] [address] Karmen Mccormick PROF 14(COMP METB)on 022 Albumin [Mass/Vol] 2.2 g/dL Critically low 3.4-5.0 [facility] Comment on above: Performed By: #### P OCGLUC #### [facility] [address] [address] [address] Karmen Mccormick Albumin/Globulin [Mass ratio] 0.7 {ratio} Normal [facility] Comment on above: Performed By: #### P OCGLUC #### [facility] [address] [address] [address] Karmen Mccormick ALP [Catalytic activity/Vol] 71 U/L Normal 46-116 [facility] Comment on above: Performed By: #### P OCGLUC #### [facility] [address] [address] [address] Karmen Mccormick ALT [Catalytic activity/Vol] 12 U/L Critically low 14-59 [facility] Comment on above: Performed By: #### P OCGLUC #### [facility] [address] [address] [address] Karmen Mccormick Anion gap [Moles/Vol] 8.7 mmol/L Normal [facility] Comment on above: Performed By: #### P OCGLUC #### [facility] [address] [address] [address] Karmen Mccormick AST [Catalytic activity/Vol] 15 U/L Normal 15-37 [facility] Comment on above: Performed By: #### P OCGLUC #### [facility] [address] [address] [address] Karmen Mccormick Bilirubin [Mass/Vol] 0.2 mg/dL Normal 0.2-1.0 [facility] Comment on above: Performed By: #### P OCGLUC #### [facility] [address] [address] [address] Karmen Mccormick Calcium [Mass/Vol] 8.2 mg/dL Critically low 8.5-10.1 [facility] Comment on above: Performed By: #### P OCGLUC #### [facility] [address] [address] [address] Karmen Mccormick Chloride [Moles/Vol] 107 mmol/L Normal 98-107 [facility] Comment on above: Performed By: #### P OCGLUC #### [facility] [address] [address] [address] Karmen Mccormick CO2 [Moles/Vol] 24.6 mmol/L Normal 21.0-32.0 [facility] Comment on above: Performed By: #### P OCGLUC #### [facility] [address] [address] [address] Karmen Mccormick Creatinine [Mass/Vol] 0.62 mg/dL Normal 0.55-1.02 [facility] Comment on above: Performed By: #### P OCGLUC #### [facility] [address] [address] [address] Karmen Mccormick EGFR-AF GREEK >60 Normal >=60 [facility] Comment on above: Performed By: #### P OCGLUC #### [facility] [address] [address] [address] Karmen Mccormick EGFR-NON AF GREEK >60 Normal >=60 [facility] Comment on above: Performed By: #### P OCGLUC #### [facility] [address] [address] [address] Karmen Mccormick Globulin (S) [Mass/Vol] 3.0 g/dL Normal [facility] Comment on above: Performed By: #### P OCGLUC #### [facility] [address] [address] [address] Karmen Mccormick Glucose [Mass/Vol] 263 mg/dL Critically high 74-106 [facility] Comment on above: Performed By: #### P OCGLUC #### [facility] [address] [address] [address] Karmen Mccormick Potassium [Moles/Vol] 3.3 mmol/L Critically low 3.5-5.1 [facility] Comment on above: Performed By: #### P OCGLUC #### [facility] [address] [place] [address] Dr. Karmen Mccormick Protein [Mass/Vol] 5.2 g/dL Critically low 6.4-8.2 [facility] Comment on above: Performed By: #### P OCGLUC #### [facility] [address] [address] [address] Karmen Mccormick Sodium [Moles/Vol] 137 mmol/L Normal 136-145 [facility] Comment on above: Performed By: #### P OCGLUC #### [facility] [address] [place] [address] Dr. Karmen Mccormick Urea nitrogen [Mass/Vol] 10.0 mg/dL Normal 7.0-18.0 [facility] Comment on above: Performed By: #### P OCGLUC #### [facility] [address] [place] [address] Dr. Karmen Mccormick Urea nitrogen/Creatinine [Mass ratio] 16.1 mg/mg Normal [facility] Comment on above: Performed By: #### P OCGLUC #### [facility] [address] [place] [address] Dr. Karmen Mccormick CBC AUTO DIFFon 04-01-2022 BASO # 0.0 103/ul Normal 0.0-0.1 [facility] Comment on above: Performed By: #### B MP #### [facility] [address] [place] [address] Dr. Karmen Mccormick Basophils/100 WBC (Bld) 0.4 % Normal 0.2-2.0 [facility] Comment on above: Performed By: #### B MP #### [facility] [address] [place] [address] Dr. Karmen Mccormick EO # 0.3 103/ul Normal 0.0-0.7 [facility] Comment on above: Performed By: #### B MP #### [facility] [address] [place] [address] Dr. Karmen Mccormick Eosinophils/100 WBC (Bld) 3.9 % Normal 0.9-7.0 [facility] Comment on above: Performed By: #### B MP #### [facility] [address] [place] [address] Dr. Karmen Mccormick Erythrocyte distribution width (RBC) [Ratio] 13.4 % Normal 11.0-15.0 [facility] Comment on above: Performed By: #### B MP #### [facility] [address] [place] [address] Dr. Karmen Mccormick Hematocrit (Bld) [Volume fraction] 33.3 % Critically low 36.0-48.0 [facility] Comment on above: Performed By: #### B MP #### [facility] [address] [place] [address] Dr. Karmen Mccormick Hemoglobin (Bld) [Mass/Vol] 11.1 g/dL Critically low 12.0-16.0 [facility] Comment on above: Performed By: #### B MP #### [facility] [address] [place] [address] Dr. Karmen Mccormick IG # 0.04 10e3/ul Critically high 0.00-0.03 [facility] Comment on above: Performed By: #### B MP #### [facility] [address] [place] [address] Dr. Karmen Mccormick IG % 0.5 % Normal 0.0-0.5 [facility] Comment on above: Performed By: #### B MP #### [facility] [address] [place] [address] Dr. Karmen Mccormick LYMPH # 2.5 103/ul Normal 1.2-3.8 [facility] Comment on above: Performed By: #### B MP #### [facility] [address] [place] [address] Dr. Karmen Mccormick Lymphocytes/100 WBC (Bld) 33.2 % Normal 20.5-60.0 [facility] Comment on above: Performed By: #### B MP #### [facility] [address] [place] [address] Dr. Karmen Mccormick MANUAL DIFF REQ NO Normal [facility] Comment on above: Performed By: #### B MP #### [facility] [address] [place] [address] Dr. Karmen Mccormick MCH (RBC) [Entitic mass] 29.4 pg Normal 26.7-34.0 [facility] Comment on above: Performed By: #### B MP #### [facility] [address] [place] [address] Dr. Karmen Mccormick MCHC (RBC) [Mass/Vol] 33.3 g/dL Normal 29.9-35.2 [facility] Comment on above: Performed By: #### B MP #### [facility] [address] [place] [address] Dr. Karmen Mccormick MCV (RBC) [Entitic vol] 88.3 fL Normal 81.0-99.0 [facility] Comment on above: Performed By: #### B MP #### [facility] [address] [place] [address] Dr. Karmen Mccormick MONO # 0.6 103/ul Normal 0.3-0.8 [facility] Comment on above: Performed By: #### B MP #### [facility] [address] [place] [address] Dr. Karmen Mccormick Monocytes/100 WBC (Bld) 8.3 % Normal 1.7-12.0 [facility] [facility] Comment on above: Performed By: #### B MP #### [facility] [address] [place] [address] Dr. Karmen Mccormick NEUT # 4.0 103/ul Normal 1.4-6.5 [facility] Comment on above: Performed By: #### B MP #### [facility] [address] [place] [address] Dr. Karmen Mccormick Neutrophils/100 WBC (Bld) 53.7 % Normal 43.0-75.0 [facility] Comment on above: Performed By: #### B MP #### [facility] [address] [address] [address] Karmen Mccormick Platelet mean volume (Bld) [Entitic vol] 10.1 fL Normal 9.5-13.5 [facility] Comment on above: Performed By: #### B MP #### [facility] [address] [address] [address] Karmen Mccormick PLT 222 103/ul Normal 150-450 [facility] Comment on above: Performed By: #### B MP #### [facility] [address] [place] [address] Dr. Karmen Mccormick RBC 3.77 106/ul Critically low 4.20-5.40 [facility] Comment on above: Performed By: #### B MP #### [facility] [address] [place] [address] Dr. Karmen Mccormick WBC 7.5 103/ul Normal 4.0-11.0 [facility] Comment on above: Performed By: #### B MP #### [facility] [address] [place] [address] Dr. Karmen Mccormick H PYLORI ANTIBODY IGGon 03-14 H. PYLORI IGG ABS 0.22 Index Value Normal 0.00-0.79 [facility] Comment on above: Result Comment: Nega tive <0.80 Equivocal 0.80 - 0.89 Positive >0.89 Performed By: #### P OCGLUC #### [facility] [address] [place] [address] Dr. Karmen Mccormick POINT OF CARE GLUCOSEon 03-14 0 Glucose [Mass/Vol] 187 mg/dL Critically high 74-106 [facility] Comment on above: Performed By: #### P OCGLUC #### [facility] [address] [place] [address] Dr. Karmen Mccormick Glucose [Mass/Vol] 200 mg/dL Critically high 74-106 [facility] Comment on above: Performed By: #### P OCGLUC #### [facility] [address] [place] [address] Dr. Karmen Mccormick Glucose [Mass/Vol] 173 mg/dL Critically high 74-106 [facility] Comment on above: Performed By: #### P OCGLUC #### [facility] [address] [address] [address] Karmen Mccormick PROF 14(COMP METB)on 022 Albumin [Mass/Vol] 2.1 g/dL Critically low 3.4-5.0 [facility] Comment on above: Performed By: #### P OCGLUC #### [facility] [address] [address] [address] Karmen Mccormick Albumin/Globulin [Mass ratio] 0.7 {ratio} Normal [facility] Comment on above: Performed By: #### P OCGLUC #### [facility] [address] [place] [address] Dr. Karmen Mccormick ALP [Catalytic activity/Vol] 70 U/L Normal 46-116 [facility] Comment on above: Performed By: #### P OCGLUC #### [facility] [address] [place] [address] Dr. Karmen Mccormick ALT [Catalytic activity/Vol] 14 U/L Normal 14-59 [facility] Comment on above: Performed By: #### P OCGLUC #### [facility] [address] [place] [address] Dr. Karmen Mccormick Anion gap [Moles/Vol] 12.9 mmol/L Normal [facility] Comment on above: Performed By: #### P OCGLUC #### [facility] [address] [place] [address] Dr. Karmen Mccormick AST [Catalytic activity/Vol] 23 U/L Normal 15-37 [facility] Comment on above: Performed By: #### P OCGLUC #### [facility] [address] [place] [address] Dr. Karmen Mccormick Bilirubin [Mass/Vol] 0.4 mg/dL Normal 0.2-1.0 [facility] Comment on above: Performed By: #### P OCGLUC #### [facility] [address] [place] [address] Dr. Karmen Mccormick Calcium [Mass/Vol] 8.1 mg/dL Critically low 8.5-10.1 [facility] Comment on above: Performed By: #### P OCGLUC #### [facility] [address] [address] [address] Karmen Mccormick Chloride [Moles/Vol] 107 mmol/L Normal 98-107 [facility] Comment on above: Performed By: #### P OCGLUC #### [facility] [address] [address] [address] Karmen Mccormick CO2 [Moles/Vol] 20.8 mmol/L Critically low 21.0-32.0 [facility] Comment on above: Performed By: #### P OCGLUC #### [facility] [address] [place] [address] Dr. Karmen Mccormick Creatinine [Mass/Vol] 0.79 mg/dL Normal 0.55-1.02 [facility] Comment on above: Performed By: #### P OCGLUC #### [facility] [address] [place] [address] Dr. Karmen Mccormick EGFR-AF GREEK >60 Normal >=60 [facility] Comment on above: Performed By: #### P OCGLUC #### [facility] [address] [place] [address] Dr. Karmen Mccormick EGFR-NON AF GREEK >60 Normal >=60 [facility] Comment on above: Performed By: #### P OCGLUC #### [facility] [address] [address] [address] Karmen Mccormick Globulin (S) [Mass/Vol] 3.1 g/dL Normal [facility] Comment on above: Performed By: #### P OCGLUC #### [facility] [address] [address] [address] Karmen Mccormick Glucose [Mass/Vol] 226 mg/dL Critically high 74-106 [facility] Comment on above: Performed By: #### P OCGLUC #### [facility] [address] [place] [address] Dr. Karmen Mccormick Potassium [Moles/Vol] 3.7 mmol/L Normal 3.5-5.1 [facility] Comment on above: Performed By: #### P OCGLUC #### [facility] [address] [address] [address] Karmen Mccormick Protein [Mass/Vol] 5.2 g/dL Critically low 6.4-8.2 [facility] Comment on above: Performed By: #### P OCGLUC #### [facility] [address] [address] [address] Karmen Mccormick Sodium [Moles/Vol] 137 mmol/L Normal 136-145 [facility] Comment on above: Performed By: #### P OCGLUC #### [facility] [address] [address] [address] Karmen Mccormick Urea nitrogen [Mass/Vol] 9.0 mg/dL Normal 7.0-18.0 [facility] Comment on above: Performed By: #### P OCGLUC #### [facility] [address] [address] [address] Karmen Mccormick Urea nitrogen/Creatinine [Mass ratio] 11.4 mg/mg Normal [facility] Comment on above: Performed By: #### P OCGLUC #### [facility] [address] [place] [address] Dr. Karmen Mccormick WOUND CULTUREon 04-01-2022 Antimicrobial Susceptibility Comment Normal [facility] Comment on above: Result Comment: S = Susceptible; I = Intermediate; R = Resistant P = Positive; N = Negative MICS are expressed in micrograms per mL Antibiotic RSLT#1 RSLT#2 RSLT#3 RSLT#4 Ciprofloxacin R Clindamycin S Erythromycin R Gentamicin S Levofloxacin I Linezolid S Oxacillin R Penicillin R Rifampin S Tetracycline S Trimethoprim/Sulfa S Vancomycin S Performed By: #### C BC #### [facility] [address] [place] [address] Dr. Karmen Mccormick Bacteria identified Aer cx Nom (Unsp spec) Final report Abnormal [facility] Comment on above: Performed By: #### C BC #### [facility] [address] [address] [address] Karmen Mccormick Result 1 Comment Abnormal [facility] Comment on above: Result Comment: Meth icillin - resistant Staphylococcus aureus Based on resistance to oxacillin this isolate would be resistant to all currently available beta-lactam antimicrobial agents, with the exception of the newer cephalosporins with anti-MRSA activity, such as Ceftaroline Heavy growth Performed By: #### C BC #### [facility] [address] [place] [address] Dr. Karmen Mccormick Result 2 Mixed skin alexis Normal [facility] Comment on above: Result Comment: Elías y growth Performed By: #### C BC #### [facility] [address] [place] [address] Dr. Karmen Mccormick CBC AUTO DIFFon 03-31-2022 BASO # 0.0 103/ul Normal 0.0-0.1 [facility] Comment on above: Performed By: #### P OCGLUC #### [facility] [address] [place] [address] Dr. Karmen Mccormick Basophils/100 WBC (Bld) 0.4 % Normal 0.2-2.0 [facility] Comment on above: Performed By: #### P OCGLUC #### [facility] [address] [place] [address] Dr. Karmen Mccormick EO # 0.2 103/ul Normal 0.0-0.7 [facility] Comment on above: Performed By: #### P OCGLUC #### [facility] [address] [place] [address] Dr. Karmen Mccormick Eosinophils/100 WBC (Bld) 2.4 % Normal 0.9-7.0 [facility] Comment on above: Performed By: #### P OCGLUC #### [facility] [address] [place] [address] Dr. Karmen Mccormick Erythrocyte distribution width (RBC) [Ratio] 13.2 % Normal 11.0-15.0 [facility] Comment on above: Performed By: #### P OCGLUC #### [facility] [address] [place] [address] Dr. Karmen Mccormick Hematocrit (Bld) [Volume fraction] 39.1 % Normal 36.0-48.0 [facility] Comment on above: Performed By: #### P OCGLUC #### [facility] [address] [address] [address] Karmen Mccormick Hemoglobin (Bld) [Mass/Vol] 12.7 g/dL Normal 12.0-16.0 [facility] Comment on above: Performed By: #### P OCGLUC #### [facility] [address] [address] [address] Karmen Mccormick IG # 0.04 10e3/ul Critically high 0.00-0.03 [facility] Comment on above: Performed By: #### P OCGLUC #### [facility] [address] [address] [address] Karmen Mccormick IG % 0.4 % Normal 0.0-0.5 [facility] Comment on above: Performed By: #### P OCGLUC #### [facility] [address] [place] [address] Dr. Karmen Mccormick LYMPH # 3.1 103/ul Normal 1.2-3.8 [facility] Comment on above: Performed By: #### P OCGLUC #### [facility] [address] [place] [address] Dr. Karmen Mccormick Lymphocytes/100 WBC (Bld) 32.3 % Normal 20.5-60.0 [facility] Comment on above: Performed By: #### P OCGLUC #### [facility] [address] [place] [address] Dr. Karmen Mccormick MANUAL DIFF REQ NO Normal [facility] Comment on above: Performed By: #### P OCGLUC #### [facility] [address] [address] [address] Karmen Mccormick MCH (RBC) [Entitic mass] 29.3 pg Normal 26.7-34.0 [facility] Comment on above: Performed By: #### P OCGLUC #### [facility] [address] [address] [address] Karmen Mccormick MCHC (RBC) [Mass/Vol] 32.5 g/dL Normal 29.9-35.2 [facility] Comment on above: Performed By: #### P OCGLUC #### [facility] [address] [address] [address] Karmen Mccormick MCV (RBC) [Entitic vol] 90.3 fL Normal 81.0-99.0 [facility] Comment on above: Performed By: #### P OCGLUC #### [facility] [address] [place] [address] Dr. Karmen Mccormick MONO # 0.9 103/ul Critically high 0.3-0.8 [facility] Comment on above: Performed By: #### P OCGLUC #### [facility] [address] [place] [address] Dr. Karmen Mccormick Monocytes/100 WBC (Bld) 8.9 % Normal 1.7-12.0 [facility] Comment on above: Performed By: #### P OCGLUC #### [facility] [address] [place] [address] Dr. Karmen Mccormick NEUT # 5.3 103/ul Normal 1.4-6.5 [facility] Comment on above: Performed By: #### P OCGLUC #### [facility] [address] [place] [address] Dr. Karmen Mccormick Neutrophils/100 WBC (Bld) 55.6 % Normal 43.0-75.0 [facility] Comment on above: Performed By: #### P OCGLUC #### [facility] [address] [place] [address] Dr. Karmen Mccormick Platelet mean volume (Bld) [Entitic vol] 10.0 fL Normal 9.5-13.5 [facility] Comment on above: Performed By: #### P OCGLUC #### [facility] [address] [place] [address] Dr. Karmen Mccormick PLT 278 103/ul Normal 150-450 [facility] Comment on above: Performed By: #### P OCGLUC #### [facility] [address] [place] [address] Dr. Karmen Mccormick RBC 4.33 106/ul Normal 4.20-5.40 [facility] Comment on above: Performed By: #### P OCGLUC #### [facility] [address] [address] [address] Karmen Mccormick WBC 9.5 103/ul Normal 4.0-11.0 [facility] Comment on above: Performed By: #### P OCGLUC #### [facility] [address] [address] [address] Karmen Mccormick POINT OF CARE GLUCOSEon 03-13 Glucose [Mass/Vol] 130 mg/dL Critically high -[address] [place] [address] Comment on above: Performed By: #### P OCGLUC #### [facility] [address] [address] [address] Karmen Mccormick Glucose [Mass/Vol] 153 mg/dL Critically high [address] [place] [address] Comment on above: Performed By: #### A CETON #### [facility] [address] [address] [address] Karmen Mccormick Glucose [Mass/Vol] 195 mg/dL Critically high [address] [place] [address] Comment on above: Performed By: #### B MP #### [facility] [address] [address] [address] Karmen Mccormick Glucose [Mass/Vol] 163 mg/dL Critically high [address] [place] [address] Comment on above: Performed By: #### A CETON #### [facility] [address] [address] [address] Karmen Mccormick Glucose [Mass/Vol] 88 mg/dL Normal 74-106 [facility] Comment on above: Performed By: #### B MP #### [facility] [address] [address] [address] Karmen Mccormick Glucose [Mass/Vol] 145 mg/dL Critically high [facility]106 [facility] Comment on above: Performed By: #### A CETON #### [facility] [address] [address] [address] Karmen Mccormick Glucose [Mass/Vol] 117 mg/dL Critically high [address] [place] [address] Comment on above: Performed By: #### C BC #### [facility] [address] [address] [address] Karmen Mccormick Glucose [Mass/Vol] 146 mg/dL Critically high 74-106 [facility] Comment on above: Performed By: #### C VDTBH #### [facility] [address] [place] [address] Dr. Karmen Mccormick PROF 14(COMP METB)on 022 Albumin [Mass/Vol] 2.4 g/dL Critically low 3.4-5.0 [facility] Comment on above: Performed By: #### P OCGLUC #### [facility] [address] [address] [address] Karmen Mccormick Albumin/Globulin [Mass ratio] 0.7 {ratio} Normal [facility] Comment on above: Performed By: #### P OCGLUC #### [facility] [address] [place] [address] Dr. Karmen Mccormick ALP [Catalytic activity/Vol] 83 U/L Normal 46-116 [facility] Comment on above: Performed By: #### P OCGLUC #### [facility] [address] [place] [address] Dr. Karmen Mccormick ALT [Catalytic activity/Vol] 14 U/L Normal 14-59 [facility] Comment on above: Performed By: #### P OCGLUC #### [facility] [address] [place] [address] Dr. Karmen Mccormick Anion gap [Moles/Vol] 12.2 mmol/L Normal [facility] Comment on above: Performed By: #### P OCGLUC #### [facility] [address] [place] [address] Dr. Karmen Mccormick AST [Catalytic activity/Vol] 20 U/L Normal 15-37 [facility] Comment on above: Performed By: #### P OCGLUC #### [facility] [address] [place] [address] Dr. Karmen Mccormick Bilirubin [Mass/Vol] 0.4 mg/dL Normal 0.2-1.0 [facility] Comment on above: Performed By: #### P OCGLUC #### [facility] [address] [address] [address] Karmen Mccormick Calcium [Mass/Vol] 8.4 mg/dL Critically low 8.5-10.1 [facility] Comment on above: Performed By: #### P OCGLUC #### [facility] [address] [place] [address] Dr. Karmen Mccormick Chloride [Moles/Vol] 110 mmol/L Critically high 98-107 [facility] Comment on above: Performed By: #### P OCGLUC #### [facility] [address] [place] [address] Dr. Karmen Mccormick CO2 [Moles/Vol] 21.5 mmol/L Normal 21.0-32.0 [facility] Comment on above: Performed By: #### P OCGLUC #### [facility] [address] [place] [address] Dr. Karmen Mccormick Creatinine [Mass/Vol] 0.63 mg/dL Normal 0.55-1.02 [facility] Comment on above: Performed By: #### P OCGLUC #### [facility] [address] [place] [address] Dr. Karmen Mccormick EGFR-AF GREEK >60 Normal >=60 [facility] Comment on above: Performed By: #### P OCGLUC #### [facility] [address] [place] [address] Dr. Karmen Mccormick EGFR-NON AF GREEK >60 Normal >=60 [facility] Comment on above: Performed By: #### P OCGLUC #### [facility] [address] [address] [address] Karmen Mccormick Globulin (S) [Mass/Vol] 3.5 g/dL Normal [facility] Comment on above: Performed By: #### P OCGLUC #### [facility] [address] [place] [address] Dr. Karmen Mccormick Glucose [Mass/Vol] 121 mg/dL Critically high 74-106 [facility] Comment on above: Performed By: #### P OCGLUC #### [facility] [address] [place] [address] Dr. Karmen Mccormick Potassium [Moles/Vol] 3.7 mmol/L Normal 3.5-5.1 [facility] Comment on above: Performed By: #### P OCGLUC #### [facility] [address] [address] [address] Karmen Mccormick Protein [Mass/Vol] 5.9 g/dL Critically low 6.4-8.2 [facility] Comment on above: Performed By: #### P OCGLUC #### [facility] [address] [address] [address] Karmen Mccormick Sodium [Moles/Vol] 140 mmol/L Normal 136-145 [facility] Comment on above: Performed By: #### P OCGLUC #### [facility] [address] [address] [address] Karmen Mccormick Urea nitrogen [Mass/Vol] 10.0 mg/dL Normal 7.0-18.0 [facility] Comment on above: Performed By: #### P OCGLUC #### [facility] [address] [address] [address] Karmen Mccormick Urea nitrogen/Creatinine [Mass ratio] 15.9 mg/mg Normal [facility] Comment on above: Performed By: #### P OCGLUC #### [facility] [address] [address] [address] Karmen Mccormick XR ABD FLAT UP_PA [...] TEJAS CHRISTOPHER Date: 2022-03-31 13:12 Normal [facility] CBC AUTO DIFFon 03-30-2022 BASO # 0.0 103/ul Normal 0.0-0.1 [facility] Comment on above: Performed By: #### C BC #### [facility] [address] [address] [address] Karmen Mccormick Basophils/100 WBC (Bld) 0.4 % Normal 0.2-2.0 [facility] Comment on above: Performed By: #### C BC #### [facility] [address] [address] [address] Karmen Mccormick EO # 0.1 103/ul Normal 0.0-0.7 [facility] Comment on above: Performed By: #### C BC #### [facility] [address] [place] [address] Dr. Karmen Mccormick Eosinophils/100 WBC (Bld) 1.5 % Normal 0.9-7.0 [facility] Comment on above: Performed By: #### C BC #### [facility] [address] [place] [address] Dr. Karmen Mccormick Erythrocyte distribution width (RBC) [Ratio] 13.6 % Normal 11.0-15.0 [facility] Comment on above: Performed By: #### C BC #### [facility] [address] [place] [address] Dr. Karmen Mccormick Hematocrit (Bld) [Volume fraction] 37.1 % Normal 36.0-48.0 [facility] Comment on above: Performed By: #### C BC #### [facility] [address] [place] [address] Dr. Karmen Mccormick Hemoglobin (Bld) [Mass/Vol] 12.1 g/dL Normal 12.0-16.0 [facility] Comment on above: Performed By: #### C BC #### [facility] [address] [place] [address] Dr. Karmen Mccormick IG # 0.02 10e3/ul Normal 0.00-0.03 [facility] Comment on above: Performed By: #### C BC #### [facility] [address] [place] [address] Dr. Karmen Mccormick IG % 0.3 % Normal 0.0-0.5 [facility] Comment on above: Performed By: #### C BC #### [facility] [address] [place] [address] Dr. Karmen Mccormick LYMPH # 2.0 103/ul Normal 1.2-3.8 [facility] Comment on above: Performed By: #### C BC #### [facility] [address] [place] [address] Dr. Karmen Mccormick Lymphocytes/100 WBC (Bld) 25.7 % Normal 20.5-60.0 [facility] Comment on above: Performed By: #### C BC #### [facility] [address] [place] [address] Dr. Karmen Mccormick MANUAL DIFF REQ NO Normal [facility] Comment on above: Performed By: #### C BC #### [facility] [address] [place] [address] Dr. Karmen Mccormick MCH (RBC) [Entitic mass] 28.8 pg Normal 26.7-34.0 [facility] Comment on above: Performed By: #### C BC #### [facility] [address] [place] [address] Dr. Karmen Mccormick MCHC (RBC) [Mass/Vol] 32.6 g/dL Normal 29.9-35.2 [facility] Comment on above: Performed By: #### C BC #### [facility] [address] [place] [address] Dr. Karmen Mccormick MCV (RBC) [Entitic vol] 88.3 fL Normal 81.0-99.0 [facility] Comment on above: Performed By: #### C BC #### [facility] [address] [place] [address] Dr. Karmen Mccormick MONO # 0.8 103/ul Normal 0.3-0.8 [facility] [facility] Comment on above: Performed By: #### C BC #### [facility] [address] [place] [address] Dr. Karmen Mccormick Monocytes/100 WBC (Bld) 9.5 % Normal 1.7-12.0 [facility] Comment on above: Performed By: #### C BC #### [facility] [address] [place] [address] Dr. Karmen Mccormick NEUT # 4.9 103/ul Normal 1.4-6.5 [facility] Comment on above: Performed By: #### C BC #### [facility] [address] [place] [address] Dr. Karmen Mccormick Neutrophils/100 WBC (Bld) 62.6 % Normal 43.0-75.0 [facility] Comment on above: Performed By: #### C BC #### [facility] [address] [place] [address] Dr. Karmen Mccormick Platelet mean volume (Bld) [Entitic vol] 8.9 fL Critically low 9.5-13.5 [facility] Comment on above: Performed By: #### C BC #### [facility] [address] [place] [address] Dr. Karmen Mccormick PLT 324 103/ul Normal 150-450 [facility] Comment on above: Performed By: #### C BC #### [facility] [address] [place] [address] Dr. Karmen Mccormick RBC 4.20 106/ul Normal 4.20-5.40 [facility] Comment on above: Performed By: #### C BC #### [facility] [address] [place] [address] Dr. Karmen Mccormick WBC 7.9 103/ul Normal 4.0-11.0 [facility] Comment on above: Performed By: #### C BC #### [facility] [address] [place] [address] Dr. Karmen Mccormick POINT OF CARE GLUCOSEon 03-13 Glucose [Mass/Vol] 147 mg/dL Critically high 74-106 [facility] Comment on above: Performed By: #### P OCGLUC #### [facility] [address] [place] [address] Dr. Karmen Mccormick Glucose [Mass/Vol] 187 mg/dL Critically high 74-106 [facility] Comment on above: Performed By: #### C VDTBH #### [facility] [address] [place] [address] Dr. Karmen Mccormick Glucose [Mass/Vol] 211 mg/dL Critically high 74-106 [facility] Comment on above: Performed By: #### B MP #### [facility] [address] [place] [address] Dr. Karmen Mccormick PROF 14(COMP METB)on 022 Albumin [Mass/Vol] 2.5 g/dL Critically low 3.4-5.0 [facility] Comment on above: Performed By: #### C BC #### [facility] [address] [place] [address] Dr. Karmen Mccormick Albumin/Globulin [Mass ratio] 0.7 {ratio} Normal [facility] Comment on above: Performed By: #### C BC #### [facility] [address] [place] [address] Dr. Karmen Mccormick ALP [Catalytic activity/Vol] 76 U/L Normal 46-116 [facility] Comment on above: Performed By: #### C BC #### [facility] [address] [place] [address] Dr. Karmen Mccormick ALT [Catalytic activity/Vol] 7 U/L Critically low 14-59 [facility] Comment on above: Performed By: #### C BC #### [facility] [address] [place] [address] Dr. Karmen Mccormick Anion gap [Moles/Vol] 10.8 mmol/L Normal [facility] Comment on above: Performed By: #### C BC #### [facility] [address] [place] [address] Dr. Karmen Mccormick AST [Catalytic activity/Vol] 11 U/L Critically low 15-37 [facility] Comment on above: Performed By: #### C BC #### [facility] [address] [place] [address] Dr. Karmen Mccormick Bilirubin [Mass/Vol] 0.3 mg/dL Normal 0.2-1.0 [facility] Comment on above: Performed By: #### C BC #### [facility] [address] [address] [address] Karmen Mccormick Calcium [Mass/Vol] 8.4 mg/dL Critically low 8.5-10.1 [facility] Comment on above: Performed By: #### C BC #### [facility] [address] [address] [address] Karmen Mccormick Chloride [Moles/Vol] 106 mmol/L Normal 98-107 [facility] Comment on above: Performed By: #### C BC #### [facility] [address] [place] [address] Dr. Karmen Mccormick CO2 [Moles/Vol] 23.6 mmol/L Normal 21.0-32.0 [facility] Comment on above: Performed By: #### C BC #### [facility] [address] [place] [address] Dr. Karmen Mccormick Creatinine [Mass/Vol] 0.66 mg/dL Normal 0.55-1.02 [facility] Comment on above: Performed By: #### C BC #### [facility] [address] [place] [address] Dr. Karmen Mccormick EGFR-AF GREEK >60 Normal >=60 [facility] Comment on above: Performed By: #### C BC #### [facility] [address] [place] [address] Dr. Karmen Mccormick EGFR-NON AF GREEK >60 Normal >=60 [facility] Comment on above: Performed By: #### C BC #### [facility] [address] [place] [address] Dr. Karmen Mccormick Globulin (S) [Mass/Vol] 3.4 g/dL Normal [facility] Comment on above: Performed By: #### C BC #### [facility] [address] [place] [address] Dr. Karmen Mccormick Glucose [Mass/Vol] 187 mg/dL Critically high 74-106 [facility] Comment on above: Performed By: #### C BC #### [facility] [address] [place] [address] Dr. Karmen Mccormick Potassium [Moles/Vol] 3.4 mmol/L Critically low 3.5-5.1 [facility] Comment on above: Performed By: #### C BC #### [facility] [address] [place] [address] Dr. Karmen Mccormick Protein [Mass/Vol] 5.9 g/dL Critically low 6.4-8.2 [facility] Comment on above: Performed By: #### C BC #### [facility] [address] [place] [address] Dr. Karmen Mccormick Sodium [Moles/Vol] 137 mmol/L Normal 136-145 [facility] Comment on above: Performed By: #### C BC #### [facility] [address] [place] [address] Dr. Karmen Mccormick Urea nitrogen [Mass/Vol] 14.0 mg/dL Normal 7.0-18.0 [facility] Comment on above: Performed By: #### C BC #### [facility] [address] [place] [address] Dr. Karmen Mccormick Urea nitrogen/Creatinine [Mass ratio] 21.2 mg/mg Normal [facility] Comment on above: Performed By: #### C BC #### [facility] [address] [place] [address] Dr. Karmen Mccormick CBC AUTO DIFFon 03-29-2022 BASO # 0.0 103/ul Normal 0.0-0.1 [facility] Comment on above: Performed By: #### P OCGLUC #### [facility] [address] [place] [address] Dr. Karmen Mccormick Basophils/100 WBC (Bld) 0.3 % Normal 0.2-2.0 [facility] Comment on above: Performed By: #### P OCGLUC #### [facility] [address] [place] [address] Dr. Karmen Mccormick EO # 0.0 103/ul Normal 0.0-0.7 [facility] Comment on above: Performed By: #### P OCGLUC #### [facility] [address] [place] [address] Dr. Karmen Mccormick Eosinophils/100 WBC (Bld) 0.4 % Critically low 0.9-7.0 [facility] Comment on above: Performed By: #### P OCGLUC #### [facility] [address] [place] [address] Dr. Karmen Mccormick Erythrocyte distribution width (RBC) [Ratio] 13.7 % Normal 11.0-15.0 [facility] Comment on above: Performed By: #### P OCGLUC #### [facility] [address] [place] [address] Dr. Karmen Mccormick Hematocrit (Bld) [Volume fraction] 40.9 % Normal 36.0-48.0 [facility] Comment on above: Performed By: #### P OCGLUC #### [facility] [address] [place] [address] Dr. Karmen Mccomrick Hemoglobin (Bld) [Mass/Vol] 13.4 g/dL Normal 12.0-16.0 [facility] Comment on above: Performed By: #### P OCGLUC #### [facility] [address] [place] [address] Dr. Karmen Mccormick IG # 0.05 10e3/ul Critically high 0.00-0.03 [facility] Comment on above: Performed By: #### P OCGLUC #### [facility] [address] [place] [address] Dr. Karmen Mccormick IG % 0.5 % Normal 0.0-0.5 [facility] Comment on above: Performed By: #### P OCGLUC #### [facility] [address] [place] [address] Dr. Karmen Mccormick LYMPH # 1.3 103/ul Normal 1.2-3.8 [facility] Comment on above: Performed By: #### P OCGLUC #### [facility] [address] [place] [address] Dr. Karmen Mccormick Lymphocytes/100 WBC (Bld) 13.4 % Critically low 20.5-60.0 [facility] Comment on above: Performed By: #### P OCGLUC #### [facility] [address] [place] [address] Dr. Karmen Mccormick MANUAL DIFF REQ NO Normal [facility] Comment on above: Performed By: #### P OCGLUC #### [facility] [address] [place] [address] Dr. Karmen Mccormick MCH (RBC) [Entitic mass] 28.8 pg Normal 26.7-34.0 [facility] Comment on above: Performed By: #### P OCGLUC #### [facility] [address] [place] [address] Dr. Karmen Mccormick MCHC (RBC) [Mass/Vol] 32.8 g/dL Normal 29.9-35.2 [facility] Comment on above: Performed By: #### P OCGLUC #### [facility] [address] [place] [address] Dr. Karmen Mccormick MCV (RBC) [Entitic vol] 87.8 fL Normal 81.0-99.0 [facility] Comment on above: Performed By: #### P OCGLUC #### [facility] [address] [place] [address] Dr. Karmen Mccormick MONO # 0.7 103/ul Normal 0.3-0.8 [facility] Comment on above: Performed By: #### P OCGLUC #### [facility] [address] [place] [address] Dr. Karmen Mccormick Monocytes/100 WBC (Bld) 7.4 % Normal 1.7-12.0 [facility] Comment on above: Performed By: #### P OCGLUC #### [facility] [address] [place] [address] Dr. Karmen Mccormick NEUT # 7.6 103/ul Critically high 1.4-6.5 [facility] Comment on above: Performed By: #### P OCGLUC #### [facility] [address] [place] [address] Dr. Karmen Mccormick Neutrophils/100 WBC (Bld) 78.0 % Critically high 43.0-75.0 [facility] Comment on above: Performed By: #### P OCGLUC #### [facility] [address] [place] [address] Dr. Karmen Mccormick Platelet mean volume (Bld) [Entitic vol] 9.1 fL Critically low 9.5-13.5 [facility] Comment on above: Performed By: #### P OCGLUC #### [facility] [address] [place] [address] Dr. Karmen Mccormick PLT 370 103/ul Normal 150-450 [facility] Comment on above: Performed By: #### P OCGLUC #### [facility] [address] [address] [address] Karmen Mccormick RBC 4.66 106/ul Normal 4.20-5.40 [facility] Comment on above: Performed By: #### P OCGLUC #### [facility] [address] [place] [address] Dr. Karmen Mccormick WBC 9.8 103/ul Normal 4.0-11.0 [facility] Comment on above: Performed By: #### P OCGLUC #### [facility] [address] [place] [address] Dr. Karmen Mccormick POINT OF CARE GLUCOSEon 03-13 Glucose [Mass/Vol] 233 mg/dL Critically high 74-106 [facility] Comment on above: Performed By: #### C VDTBH #### [facility] [address] [place] [address] Dr. Karmen Mccormick Glucose [Mass/Vol] 212 mg/dL Critically high 74-106 [facility] Comment on above: Performed By: #### P OCGLUC #### [facility] [address] [place] [address] Dr. Karmen Mccormick Glucose [Mass/Vol] 237 mg/dL Critically high 74-106 [facility] Comment on above: Performed By: #### A CETON #### [facility] [address] [place] [address] Dr. Karmen Mccormick PROF 14(COMP METB)on 022 Albumin [Mass/Vol] 2.6 g/dL Critically low 3.4-5.0 [facility] Comment on above: Performed By: #### P OCGLUC #### [facility] [address] [address] [address] Karmen Mccormick Albumin/Globulin [Mass ratio] 0.7 {ratio} Normal [facility] Comment on above: Performed By: #### P OCGLUC #### [facility] [address] [address] [address] Karmen Mccormick ALP [Catalytic activity/Vol] 86 U/L Normal 46-116 [facility] Comment on above: Performed By: #### P OCGLUC #### [facility] [address] [address] [address] Karmen Mccormick ALT [Catalytic activity/Vol] 12 U/L Critically low 14-59 [facility] Comment on above: Performed By: #### P OCGLUC #### [facility] [address] [place] [address] Dr. Karmen Mccormick Anion gap [Moles/Vol] 14.9 mmol/L Normal [facility] Comment on above: Performed By: #### P OCGLUC #### [facility] [address] [place] [address] Dr. Karmen Mccormick AST [Catalytic activity/Vol] 13 U/L Critically low 15-37 [facility] Comment on above: Performed By: #### P OCGLUC #### [facility] [address] [place] [address] Dr. Karmen Mccormick Bilirubin [Mass/Vol] 0.3 mg/dL Normal 0.2-1.0 [facility] Comment on above: Performed By: #### P OCGLUC #### [facility] [address] [address] [address] Karmen Mccormick Calcium [Mass/Vol] 8.8 mg/dL Normal 8.5-10.1 [facility] Comment on above: Performed By: #### P OCGLUC #### [facility] [address] [address] [address] Karmen Mccormick Chloride [Moles/Vol] 106 mmol/L Normal 98-107 [facility] Comment on above: Performed By: #### P OCGLUC #### [facility] [address] [place] [address] Dr. Karmen Mccormick CO2 [Moles/Vol] 21.6 mmol/L Normal 21.0-32.0 [facility] Comment on above: Performed By: #### P OCGLUC #### [facility] [address] [address] [address] Karmen Mccormick Creatinine [Mass/Vol] 0.77 mg/dL Normal 0.55-1.02 [facility] Comment on above: Performed By: #### P OCGLUC #### [facility] [address] [address] [address] Karmen Mccormick EGFR-AF GREEK >60 Normal >=60 [facility] Comment on above: Performed By: #### P OCGLUC #### [facility] [address] [address] [address] Karmen Mccormick EGFR-NON AF GREEK >60 Normal >=60 [facility] Comment on above: Performed By: #### P OCGLUC #### [facility] [address] [address] [address] Karmen Mccormick Globulin (S) [Mass/Vol] 3.9 g/dL Normal [facility] Comment on above: Performed By: #### P OCGLUC #### [facility] [address] [place] [address] Dr. Karmen Mccormick Glucose [Mass/Vol] 195 mg/dL Critically high 74-106 [facility] Comment on above: Performed By: #### P OCGLUC #### [facility] [address] [place] [address] Dr. Karmen Mccormick Potassium [Moles/Vol] 3.5 mmol/L Normal 3.5-5.1 [facility] Comment on above: Performed By: #### P OCGLUC #### [facility] [address] [address] [address] Karmen Mccormick Protein [Mass/Vol] 6.5 g/dL Normal 6.4-8.2 [facility] Comment on above: Performed By: #### P OCGLUC #### [facility] [address] [address] [address] Karmen Mccormick Sodium [Moles/Vol] 139 mmol/L Normal 136-145 [facility] Comment on above: Performed By: #### P OCGLUC #### [facility] [address] [place] [address] Dr. Karmen Mccormick Urea nitrogen [Mass/Vol] 17.0 mg/dL Normal 7.0-18.0 [facility] Comment on above: Performed By: #### P OCGLUC #### [facility] [address] [place] [address] Dr. Karmen Mccormick Urea nitrogen/Creatinine [Mass ratio] 22.1 mg/mg Normal [facility] Comment on above: Performed By: #### P OCGLUC #### [facility] [address] [place] [address] Dr. Karmen Mccormick CBC AUTO DIFFon 03-28-2022 BASO # 0.0 103/ul Normal 0.0-0.1 [facility] Comment on above: Performed By: #### P OCGLUC #### [facility] [address] [place] [address] Dr. Karmen Mccormick Basophils/100 WBC (Bld) 0.3 % Normal 0.2-2.0 [facility] Comment on above: Performed By: #### P OCGLUC #### [facility] [address] [place] [address] Dr. Karmen Mccormick EO # 0.0 103/ul Normal 0.0-0.7 [facility] Comment on above: Performed By: #### P OCGLUC #### [facility] [address] [place] [address] Dr. Karmen Mccormick Eosinophils/100 WBC (Bld) 0.2 % Critically low 0.9-7.0 [facility] Comment on above: Performed By: #### P OCGLUC #### [facility] [address] [place] [address] Dr. Karmen Mccormick Erythrocyte distribution width (RBC) [Ratio] 13.2 % Normal 11.0-15.0 [facility] Comment on above: Performed By: #### P OCGLUC #### [facility] [address] [place] [address] Dr. Karmen Mccormick Hematocrit (Bld) [Volume fraction] 39.1 % Normal 36.0-48.0 [facility] Comment on above: Performed By: #### P OCGLUC #### [facility] [address] [address] [address] Karmen Mccormick Hemoglobin (Bld) [Mass/Vol] 13.0 g/dL Normal 12.0-16.0 [facility] Comment on above: Performed By: #### P OCGLUC #### [facility] [address] [place] [address] Dr. Karmen Mccormick IG # 0.08 10e3/ul Critically high 0.00-0.03 [facility] Comment on above: Performed By: #### P OCGLUC #### [facility] [address] [place] [address] Dr. Karmen Mccormick IG % 0.7 % Critically high 0.0-0.5 [facility] Comment on above: Performed By: #### P OCGLUC #### [facility] [address] [place] [address] Dr. Karmen Mccormick LYMPH # 1.4 103/ul Normal 1.2-3.8 [facility] Comment on above: Performed By: #### P OCGLUC #### [facility] [address] [place] [address] Dr. Karmen Mccormick Lymphocytes/100 WBC (Bld) 12.3 % Critically low 20.5-60.0 [facility] Comment on above: Performed By: #### P OCGLUC #### [facility] [address] [place] [address] Dr. Karmen Mccormick MANUAL DIFF REQ NO Normal [facility] Comment on above: Performed By: #### P OCGLUC #### [facility] [address] [place] [address] Dr. Karmen Mccormick MCH (RBC) [Entitic mass] 29.3 pg Normal 26.7-34.0 [facility] Comment on above: Performed By: #### P OCGLUC #### [facility] [address] [place] [address] Dr. Karmen Mccormick MCHC (RBC) [Mass/Vol] 33.2 g/dL Normal 29.9-35.2 [facility] Comment on above: Performed By: #### P OCGLUC #### [facility] [address] [address] [address] Karmen Mccormick MCV (RBC) [Entitic vol] 88.3 fL Normal 81.0-99.0 [facility] Comment on above: Performed By: #### P OCGLUC #### [facility] [address] [address] [address] Karmen Mccormick MONO # 0.8 103/ul Normal 0.3-0.8 [facility] Comment on above: Performed By: #### P OCGLUC #### [facility] [address] [place] [address] Dr. Karmen Mccormick Monocytes/100 WBC (Bld) 6.6 % Normal 1.7-12.0 [facility] Comment on above: Performed By: #### P OCGLUC #### [facility] [address] [place] [address] Dr. Karmen Mccormick NEUT # 9.1 103/ul Critically high 1.4-6.5 [facility] Comment on above: Performed By: #### P OCGLUC #### [facility] [address] [place] [address] Dr. Karmen Mccormick Neutrophils/100 WBC (Bld) 79.9 % Critically high 43.0-75.0 [facility] Comment on above: Performed By: #### P OCGLUC #### [facility] [address] [place] [address] Dr. Karmen Mccormick Platelet mean volume (Bld) [Entitic vol] 10.1 fL Normal 9.5-13.5 [facility] Comment on above: Performed By: #### P OCGLUC #### [facility] [address] [place] [address] Dr. Karmen Mccormick PLT 336 103/ul Normal 150-450 [facility] Comment on above: Performed By: #### P OCGLUC #### [facility] [address] [place] [address] Dr. Karmen Mccormick RBC 4.43 106/ul Normal 4.20-5.40 [facility] Comment on above: Performed By: #### P OCGLUC #### [facility] [address] [address] [address] Karmen Mccormick WBC 11.4 103/ul Critically high 4.0-11.0 [facility] Comment on above: Performed By: #### P OCGLUC #### [facility] [address] [address] [address] Karmen Mccormick POINT OF CARE GLUCOSEon 03-13 Glucose [Mass/Vol] 198 mg/dL Critically high [address] [place] [address] Comment on above: Performed By: #### P OCGLUC #### [facility] [address] [place] [address] Dr. Karmen Mccormick Glucose [Mass/Vol] 509 mg/dL Critically high [address] [place] [address] Comment on above: Result Comment: [employer] Performed By: #### P OCGLUC #### [facility] [address] [place] [address] Dr. Karmen Mccormick Glucose [Mass/Vol] 193 mg/dL Critically high [address] [place] [address] Comment on above: Performed By: #### C VDTBH #### [facility] [address] [place] [address] Dr. Karmen Mccormick Glucose [Mass/Vol] 217 mg/dL Critically high [address] [place] [address] Comment on above: Performed By: #### C BC #### [facility] [address] [place] [address] Dr. Karmen Mccormick Glucose [Mass/Vol] 207 mg/dL Critically high [address] [place] [address] Comment on above: Performed By: #### P OCGLUC #### [facility] [address] [place] [address] Dr. Karmen Mccormick Glucose [Mass/Vol] 198 mg/dL Critically high [address] [place] [address] Comment on above: Performed By: #### P OCGLUC #### [facility] [address] [place] [address] Dr. Karmen Mccormick Glucose [Mass/Vol] 208 mg/dL Critically high [address] [place] [address] Comment on above: Performed By: #### P OCGLUC #### [facility] [address] [address] [address] Karmen Mccormick Glucose [Mass/Vol] 194 mg/dL Critically high [address] [place] [address] Comment on above: Performed By: #### P OCGLUC #### [facility] [address] [address] [address] Karmen Mccormick Glucose [Mass/Vol] 162 mg/dL Critically high [address] [place] [address] Comment on above: Performed By: #### P OCGLUC #### [facility] [address] [address] [address] Karmen Mccormick Glucose [Mass/Vol] 166 mg/dL Critically high [address] [place] [address] Comment on above: Performed By: #### P OCGLUC #### [facility] [address] [address] [address] Karmen Mccormick Glucose [Mass/Vol] 209 mg/dL Critically high [address] [place] [address] Comment on above: Performed By: #### P OCGLUC #### [facility] [address] [address] [address] Karmen Mccormick Glucose [Mass/Vol] 210 mg/dL Critically high [address] [place] [address] Comment on above: Performed By: #### P OCGLUC #### [facility] [address] [address] [address] Karmen Mccormick Glucose [Mass/Vol] 207 mg/dL Critically high [address] [place] [address] Comment on above: Performed By: #### C VDTBH #### [facility] [address] [address] [address] Karmen Mccormick Glucose [Mass/Vol] 209 mg/dL Critically high [address] [place] [address] Comment on above: Performed By: #### P OCGLUC #### [facility] [address] [address] [address] Karmen Mccormick Glucose [Mass/Vol] 225 mg/dL Critically high [facility] Comment on above: Performed By: #### A CETON #### [facility] [address] [address] [address] Karmen Mccormick Glucose [Mass/Vol] 262 mg/dL Critically high -106 [facility] Comment on above: Performed By: #### P OCGLUC #### [facility] [address] [address] [address] Karmen Mccormick Glucose [Mass/Vol] 252 mg/dL Critically high -106 [facility] Comment on above: Performed By: #### P OCGLUC #### [facility] [address] [place] [address] Dr. Karmen Mccormick PROF 14(COMP METB)on 022 Albumin [Mass/Vol] 2.9 g/dL Critically low 3.4-5.0 [facility] Comment on above: Performed By: #### C VDTBH #### [facility] [address] [place] [address] Dr. Karmen Mccormick Albumin/Globulin [Mass ratio] 0.7 {ratio} Normal [facility] Comment on above: Performed By: #### C VDTBH #### [facility] [address] [place] [address] Dr. Karmen Mccormick ALP [Catalytic activity/Vol] 102 U/L Normal 46-116 [facility] Comment on above: Performed By: #### C VDTBH #### [facility] [address] [place] [address] Dr. Karmen Mccormick ALT [Catalytic activity/Vol] 13 U/L Critically low 14-59 [facility] Comment on above: Performed By: #### C VDTBH #### [facility] [address] [place] [address] Dr. Karmen Mccormick Anion gap [Moles/Vol] 18.1 mmol/L Normal [facility] Comment on above: Performed By: #### C VDTBH #### [facility] [address] [place] [address] Dr. Karmen Mccormick AST [Catalytic activity/Vol] 10 U/L Critically low 15-37 [facility] Comment on above: Performed By: #### C VDTBH #### [facility] [address] [place] [address] Dr. Karmen Mccormick Bilirubin [Mass/Vol] 0.2 mg/dL Normal 0.2-1.0 [facility] Comment on above: Performed By: #### C VDTBH #### [facility] [address] [place] [address] Dr. Karmen Mccormick Calcium [Mass/Vol] 9.5 mg/dL Normal 8.5-10.1 [facility] Comment on above: Performed By: #### C VDTBH #### [facility] [address] [place] [address] Dr. Karmen Mccormick Chloride [Moles/Vol] 107 mmol/L Normal 98-107 [facility] Comment on above: Performed By: #### C VDTBH #### [facility] [address] [place] [address] Dr. Karmen Mccormick CO2 [Moles/Vol] 21.3 mmol/L Normal 21.0-32.0 [facility] Comment on above: Performed By: #### C VDTBH #### [facility] [address] [place] [address] Dr. Karmen Mccormick Creatinine [Mass/Vol] 0.86 mg/dL Normal 0.55-1.02 [facility] Comment on above: Performed By: #### C VDTBH #### [facility] [address] [place] [address] Dr. Karmen Mccormick EGFR-AF GREEK >60 Normal >=60 [facility] Comment on above: Performed By: #### C VDTBH #### [facility] [address] [place] [address] Dr. Karmen Mccormick EGFR-NON AF GREEK >60 Normal >=60 [facility] Comment on above: Performed By: #### C VDTBH #### [facility] [address] [place] [address] Dr. Karmen Mccormick Globulin (S) [Mass/Vol] 4.3 g/dL Normal [facility] Comment on above: Performed By: #### C VDTBH #### [facility] [address] [address] [address] Karmen Mccormick Glucose [Mass/Vol] 199 mg/dL Critically high 74-106 [facility] Comment on above: Performed By: #### C VDTBH #### [facility] [address] [place] [address] Dr. Karmen Mccormick Potassium [Moles/Vol] 4.4 mmol/L Normal 3.5-5.1 [facility] Comment on above: Performed By: #### C VDTBH #### [facility] [address] [place] [address] Dr. Karmen Mccormick Protein [Mass/Vol] 7.2 g/dL Normal 6.4-8.2 [facility] Comment on above: Performed By: #### C VDTBH #### [facility] [address] [place] [address] Dr. Karmen Mccormick Sodium [Moles/Vol] 142 mmol/L Normal 136-145 [facility] Comment on above: Performed By: #### C VDTBH #### [facility] [address] [place] [address] Dr. Karmen Mccormick Urea nitrogen [Mass/Vol] 22.0 mg/dL Critically high 7.0-18.0 [facility] Comment on above: Performed By: #### C VDTBH #### [facility] [address] [place] [address] Dr. Karmen Mccormick Urea nitrogen/Creatinine [Mass ratio] 25.6 mg/mg Normal [facility] Comment on above: Performed By: #### C VDTBH #### [facility] [address] [place] [address] Dr. Karmen Mccormick PROF CHEM 8 (BAS METB)on Anion gap [Moles/Vol] 15.8 mmol/L Normal [facility] Comment on above: Performed By: #### A CETON #### [facility] [address] [place] [address] Dr. Karmen Mccormick Calcium [Mass/Vol] 9.3 mg/dL Normal 8.5-10.1 [facility] Comment on above: Performed By: #### A CETON #### [facility] [address] [address] [address] Karmen Mccormick Chloride [Moles/Vol] 106 mmol/L Normal 98-107 [facility] Comment on above: Performed By: #### A CETON #### [facility] [address] [address] [address] Karmen Mccormick CO2 [Moles/Vol] 22.0 mmol/L Normal 21.0-32.0 [facility] Comment on above: Performed By: #### A CETON #### [facility] [address] [place] [address] Dr. Karmen Mccormick Creatinine [Mass/Vol] 0.83 mg/dL Normal 0.55-1.02 [facility] Comment on above: Performed By: #### A CETON #### [facility] [address] [place] [address] Dr. Karmen Mccormick EGFR-AF GREEK >60 Normal >=60 [facility] Comment on above: Performed By: #### A CETON #### [facility] [address] [place] [address] Dr. Karmen Mccormick EGFR-NON AF GREEK >60 Normal >=60 [facility] Comment on above: Performed By: #### A CETON #### [facility] [address] [place] [address] Dr. Karmen Mccormick Glucose [Mass/Vol] 233 mg/dL Critically high 74-106 [facility] Comment on above: Performed By: #### A CETON #### [facility] [address] [address] [address] Karmen Mccormick Potassium [Moles/Vol] 3.8 mmol/L Normal 3.5-5.1 [facility] Comment on above: Performed By: #### A CETON #### [facility] [address] [address] [address] Karmen Mccormick Sodium [Moles/Vol] 140 mmol/L Normal 136-145 [facility] Comment on above: Performed By: #### A CETON #### [facility] [address] [address] [address] Karmen Mccormick Urea nitrogen [Mass/Vol] 21.0 mg/dL Critically high 7.0-18.0 [facility] Comment on above: Performed By: #### A CETON #### [facility] [address] [address] [address] Karmen Mccormick Urea nitrogen/Creatinine [Mass ratio] 25.3 mg/mg Normal [facility] Comment on above: Performed By: #### A CETON #### [facility] [address] [address] [address] Karmen Mccormick Anion gap [Moles/Vol] 20.4 mmol/L Normal [facility] Comment on above: Performed By: #### C BC #### [facility] [address] [address] [address] Karmen Mccormick Calcium [Mass/Vol] 9.7 mg/dL Normal 8.5-10.1 [facility] Comment on above: Performed By: #### C BC #### [facility] [address] [address] [address] Karmen Mccormick Chloride [Moles/Vol] 104 mmol/L Normal 98-107 [facility] Comment on above: Performed By: #### C BC #### [facility] [address] [address] [address] Karmen Mccormick CO2 [Moles/Vol] 17.7 mmol/L Critically low 21.0-32.0 [facility] Comment on above: Performed By: #### C BC #### [facility] [address] [address] [address] Karmen Mccormick Creatinine [Mass/Vol] 1.00 mg/dL Normal 0.55-1.02 [facility] Comment on above: Performed By: #### C BC #### [facility] [address] [address] [address] Karmen Mccormick EGFR-AF GREEK >60 Normal >=60 [facility] Comment on above: Performed By: #### C BC #### [facility] [address] [address] [address] Karmen Mccormick EGFR-NON AF GREEK 55 mL/min/1.73m2 Critically low >=60 [facility] Comment on above: Performed By: #### C BC #### [facility] [address] [address] [address] Karmen Mccormick Glucose [Mass/Vol] 277 mg/dL Critically high 74-106 [facility] Comment on above: Performed By: #### C BC #### [facility] [address] [address] [address] Karmen Mccormick Potassium [Moles/Vol] 4.1 mmol/L Normal 3.5-5.1 [facility] Comment on above: Performed By: #### C BC #### [facility] [address] [place] [address] Dr. Karmen Mccormick Sodium [Moles/Vol] 138 mmol/L Normal 136-145 [facility] Comment on above: Performed By: #### C BC #### [facility] [address] [address] [address] Karmen Mccormick Urea nitrogen [Mass/Vol] 23.0 mg/dL Critically high 7.0-18.0 [facility] Comment on above: Performed By: #### C BC #### [facility] [address] [address] [address] Karmen Mccormick Urea nitrogen/Creatinine [Mass ratio] 23.0 mg/mg Normal [facility] Comment on above: Performed By: #### C BC #### [facility] [address] [address] [address] Karmen Mccormick ACETONE SERUMon 03-27-2022 ACETONE SMALL Abnormal NEGATIVE [facility] Comment on above: Performed By: #### A CETON #### [facility] [address] [place] [address] Dr. Karmen Mccormick CBC AUTO DIFFon 03-27-2022 BASO # 0.0 103/ul Normal 0.0-0.1 [facility] Comment on above: Performed By: #### P OCGLUC #### [facility] [address] [address] [address] Karmen Mccormick Basophils/100 WBC (Bld) 0.3 % Normal 0.2-2.0 [facility] Comment on above: Performed By: #### P OCGLUC #### [facility] [address] [address] [address] Karmen Mccormick EO # 0.0 103/ul Normal 0.0-0.7 [facility] Comment on above: Performed By: #### P OCGLUC #### [facility] [address] [address] [address] Karmen Mccormick Eosinophils/100 WBC (Bld) 0.2 % Critically low 0.9-7.0 [facility] Comment on above: Performed By: #### P OCGLUC #### [facility] [address] [place] [address] Dr. Karmen Mccormick Erythrocyte distribution width (RBC) [Ratio] 13.0 % Normal 11.0-15.0 [facility] Comment on above: Performed By: #### P OCGLUC #### [facility] [address] [address] [address] Karmen Mccormick Hematocrit (Bld) [Volume fraction] 42.0 % Normal 36.0-48.0 [facility] Comment on above: Performed By: #### P OCGLUC #### [facility] [address] [place] [address] Dr. Karmen Mccormick Hemoglobin (Bld) [Mass/Vol] 13.5 g/dL Normal 12.0-16.0 [facility] Comment on above: Performed By: #### P OCGLUC #### [facility] [address] [address] [address] Karmen Mccormick IG # 0.07 10e3/ul Critically high 0.00-0.03 [facility] Comment on above: Performed By: #### P OCGLUC #### [facility] [address] [address] [address] Karmen Mccormick IG % 0.8 % Critically high 0.0-0.5 [facility] Comment on above: Performed By: #### P OCGLUC #### [facility] [address] [address] [address] Karmen Mccormick LYMPH # 1.0 103/ul Critically low 1.2-3.8 [facility] Comment on above: Performed By: #### P OCGLUC #### [facility] [address] [address] [address] Karmen Mccormick Lymphocytes/100 WBC (Bld) 11.0 % Critically low 20.5-60.0 [facility] Comment on above: Performed By: #### P OCGLUC #### [facility] [address] [address] [address] Karmen Mccormick MANUAL DIFF REQ NO Normal [facility] Comment on above: Performed By: #### P OCGLUC #### [facility] [address] [address] [address] Karmen Mccormick MCH (RBC) [Entitic mass] 28.8 pg Normal 26.7-34.0 [facility] Comment on above: Performed By: #### P OCGLUC #### [facility] [address] [address] [address] Karmen Mccormick MCHC (RBC) [Mass/Vol] 32.1 g/dL Normal 29.9-35.2 [facility] Comment on above: Performed By: #### P OCGLUC #### [facility] [address] [address] [address] Karmen Mccormick MCV (RBC) [Entitic vol] 89.7 fL Normal 81.0-99.0 [facility] Comment on above: Performed By: #### P OCGLUC #### [facility] [address] [address] [address] Karmen Mccormick MONO # 0.4 103/ul Normal 0.3-0.8 [facility] Comment on above: Performed By: #### P OCGLUC #### [facility] [address] [address] [address] Karmen Mccormick Monocytes/100 WBC (Bld) 4.8 % Normal 1.7-12.0 [facility] Comment on above: Performed By: #### P OCGLUC #### [facility] [address] [address] [address] Karmen Mccormick NEUT # 7.5 103/ul Critically high 1.4-6.5 [facility] Comment on above: Performed By: #### P OCGLUC #### [facility] [address] [address] [address] Karmen Mccormick Neutrophils/100 WBC (Bld) 82.9 % Critically high 43.0-75.0 [facility] Comment on above: Performed By: #### P OCGLUC #### [facility] [address] [place] [address] Dr. Karmen Mccormick Platelet mean volume (Bld) [Entitic vol] 10.3 fL Normal 9.5-13.5 [facility] Comment on above: Performed By: #### P OCGLUC #### [facility] [address] [place] [address] Dr. Karmen Mccormick PLT 333 103/ul Normal 150-450 [facility] Comment on above: Performed By: #### P OCGLUC #### [facility] [address] [place] [address] Dr. Karmen Mccormick RBC 4.68 106/ul Normal 4.20-5.40 [facility] Comment on above: Performed By: #### P OCGLUC #### [facility] [address] [place] [address] Dr. Karmen Mccormick WBC 9.0 103/ul Normal 4.0-11.0 [facility] Comment on above: Performed By: #### P OCGLUC #### [facility] [address] [place] [address] Dr. Karmen Mccormick Covid-19 PCR ([facility])on 03-13 SARS-CoV-2 (COVID-19) RNA IRVIN+probe Ql (Unsp spec) Not detected Normal NOT DETECTED [facility] Comment on above: Result Comment: When [...] for this test is supported by the [employer] Manager of Health and Human Service's declaration that [...] used). Performed By: #### C VDTBH #### [facility] [address] [place] [address] Dr. Karmen Mccormick ER URINE PROFILEon 2 Bilirubin Ql (U) Negative Normal NEGATIVE [facility] Comment on above: Performed By: #### P OCGLUC #### [facility] [address] [place] [address] Dr. Karmen Mccormick Clarity (U) CLEAR Normal CLEAR [facility] Comment on above: Performed By: #### P OCGLUC #### [facility] [address] [place] [address] Dr. Karmen Mccormick Color (U) LT. YELLOW Normal YELLOW [facility] Comment on above: Performed By: #### P OCGLUC #### [facility] [address] [place] [address] Dr. Karmen ANDREWLay A micrscopic examination will be performed if indicated. Normal [facility] Comment on above: Performed By: #### P OCGLUC #### [facility] [address] [place] [address] Dr. Karmen Mccormick Glucose Ql (U) 1000 mg/dl Abnormal NEGATIVE [facility] Comment on above: Performed By: #### P OCGLUC #### [facility] [address] [place] [address] Dr. Karmen Mccormick Hemoglobin Ql (U) Negative Normal NEGATIVE [facility] Comment on above: Performed By: #### P OCGLUC #### [facility] [address] [address] [address] Karmen Mccormick Ketones Ql (U) >=80 Abnormal NEGATIVE [facility] Comment on above: Performed By: #### P OCGLUC #### [facility] [address] [place] [address] Dr. Karmen Mccormick LEUKOCYTES Negative Normal NEGATIVE [facility] Comment on above: Performed By: #### P OCGLUC #### [facility] [address] [address] [address] Karmen Mccormick Nitrite Ql (U) Negative Normal NEGATIVE [facility] Comment on above: Performed By: #### P OCGLUC #### [facility] [address] [place] [address] Dr. Karmen Mccormick pH (U) 5.5 [pH] Normal 5-9 [facility] Comment on above: Performed By: #### P OCGLUC #### [facility] [address] [place] [address] Dr. Karmen Mccormick SPEC GRAVITY 1.020 Normal 1.005-<=1.025 [facility] Comment on above: Performed By: #### P OCGLUC #### [facility] [address] [place] [address] Dr. Karmen Mccormick UA PROTEIN Negative Normal NEGATIVE/ TRACE [facility] Comment on above: Performed By: #### P OCGLUC #### [facility] [address] [place] [address] Dr. Karmen Mccormick UR MICRO IND NOT INDICATED Normal [facility] Comment on above: Performed By: #### P OCGLUC #### [facility] [address] [place] [address] Dr. Karmen Mccormick Urobilinogen Qn (U) 0.2 {Rajeev'U}/dL Normal 0.2 - 1. 0 [facility] Comment on above: Performed By: #### P OCGLUC #### [facility] [address] [place] [address] Dr. Karmen Mccormick LACTATE/LACTIC ACIDon 2021 Lactate [Moles/Vol] 1.5 mmol/L Normal 0.4-1.9 [facility] Comment on above: Performed By: #### P OCGLUC #### [facility] [address] [address] [address] Karmen Mccormick LIPASEon 03-27-2022 Lipase [Catalytic activity/Vol] 67.0 U/L Critically low 73.0-393.0 [facility] Comment on above: Performed By: #### P OCGLUC #### [facility] [address] [place] [address] Dr. Karmen Mccormick PH VENOUS BLOODon 03-27-2022 PCO2 VENOUS 30.3 mmHg Critically low 40.0-52.0 [facility] Comment on above: Performed By: #### P OCGLUC #### [facility] [address] [place] [address] Dr. Karmen Mccormick pH VENOUS 7.223 Critically low 7.330-7.430 [facility] Comment on above: Performed By: #### P OCGLUC #### [facility] [address] [place] [address] Dr. Karmen Mccormick POINT OF CARE GLUCOSEon 03-13 Glucose [Mass/Vol] 318 mg/dL Critically high [facility] Comment on above: Performed By: #### P OCGLUC #### [facility] [address] [place] [address] Dr. Karmen Mccormick Glucose [Mass/Vol] 289 mg/dL Critically high [facility]106 [facility] Comment on above: Performed By: #### P OCGLUC #### [facility] [address] [place] [address] Dr. Karmen Mccormick Glucose [Mass/Vol] 330 mg/dL Critically high -106 [facility] Comment on above: Performed By: #### P OCGLUC #### [facility] [address] [place] [address] Dr. Karmen Mccormick Glucose [Mass/Vol] 413 mg/dL Critically high -106 [facility] Comment on above: Performed By: #### P OCGLUC #### [facility] [address] [place] [address] Dr. Karmen Mccormick Glucose [Mass/Vol] 428 mg/dL Critically high 74-106 [facility] Comment on above: Performed By: #### B MP #### [facility] Laboratory [address] [address] [address] Karmen Mccormick Glucose [Mass/Vol] 510 mg/dL Critically high 74-106 [facility] Comment on above: Result Comment: Resu lt Not Confirmed Performed By: #### A CETON #### [facility] [address] [address] [address] Karmen Mccormick Glucose [Mass/Vol] 587 mg/dL Critically high -106 [facility] Comment on above: Result Comment: Lab Draw Ordered Performed By: #### B MP #### [facility] [address] [place] [address] Dr. Karmen Mccormick PROF 14(COMP METB)on 022 Albumin [Mass/Vol] 3.1 g/dL Critically low 3.4-5.0 [facility] Comment on above: Performed By: #### P OCGLUC #### [facility] [address] [place] [address] Dr. Karmen Mccormick Albumin/Globulin [Mass ratio] 0.7 {ratio} Normal [facility] Comment on above: Performed By: #### P OCGLUC #### [facility] [address] [place] [address] Dr. Karmen Mccormick ALP [Catalytic activity/Vol] 108 U/L Normal 46-116 [facility] Comment on above: Performed By: #### P OCGLUC #### [facility] [address] [place] [address] Dr. Karmen Mccormick ALT [Catalytic activity/Vol] 14 U/L Normal 14-59 [facility] Comment on above: Performed By: #### P OCGLUC #### [facility] [address] [place] [address] Dr. Karmen Mccormick Anion gap [Moles/Vol] 29.9 mmol/L Normal [facility] Comment on above: Performed By: #### P OCGLUC #### [facility] [address] [address] [address] Karmen Mccormick AST [Catalytic activity/Vol] 8 U/L Critically low 15-37 [facility] Comment on above: Performed By: #### P OCGLUC #### [facility] [address] [address] [address] Karmen Mccormick Bilirubin [Mass/Vol] 0.5 mg/dL Normal 0.2-1.0 [facility] Comment on above: Performed By: #### P OCGLUC #### [facility] [address] [address] [address] Karmen Mccormick Calcium [Mass/Vol] 9.6 mg/dL Normal 8.5-10.1 [facility] Comment on above: Performed By: #### P OCGLUC #### [facility] [address] [address] [address] Karmen Mccormick Chloride [Moles/Vol] 95 mmol/L Critically low 98-107 [facility] Comment on above: Performed By: #### P OCGLUC #### [facility] [address] [address] [address] Karmen Mccormick CO2 [Moles/Vol] 11.3 mmol/L Critically low 21.0-32.0 [facility] Comment on above: Performed By: #### P OCGLUC #### [facility] [address] [address] [address] Karmen Mccormick Creatinine [Mass/Vol] 1.23 mg/dL Critically high 0.55-1.02 [facility] Comment on above: Performed By: #### P OCGLUC #### [facility] [address] [address] [address] Karmen Mccormick EGFR-AF GREEK 53 mL/min/1.73m2 Critically low >=60 [facility] Comment on above: Performed By: #### P OCGLUC #### [facility] [address] [address] [address] Karmen Mccormick EGFR-NON AF GREEK 43 mL/min/1.73m2 Critically low >=60 [facility] Comment on above: Performed By: #### P OCGLUC #### [facility] [address] [address] [address] Karmen Mccormick Globulin (S) [Mass/Vol] 4.5 g/dL Normal [facility] Comment on above: Performed By: #### P OCGLUC #### [facility] [address] [address] [address] Karmen Mccormick Glucose [Mass/Vol] 693 mg/dL Critically high 74-106 [facility] Comment on above: Result Comment: DILU ASHLEY Performed By: #### P OCGLUC #### [facility] [address] [address] [address] Karmen Mccormick Potassium [Moles/Vol] 5.2 mmol/L Critically high 3.5-5.1 [facility] Comment on above: Performed By: #### P OCGLUC #### [facility] [address] [place] [address] Dr. Karmen Mccormick Protein [Mass/Vol] 7.6 g/dL Normal 6.4-8.2 [facility] Comment on above: Performed By: #### P OCGLUC #### [facility] [address] [address] [address] Karmen Mccormick Sodium [Moles/Vol] 131 mmol/L Critically low 136-145 [facility] Comment on above: Performed By: #### P OCGLUC #### [facility] [address] [place] [address] Dr. Karmen Mccormick Urea nitrogen [Mass/Vol] 28.0 mg/dL Critically high 7.0-18.0 [facility] Comment on above: Performed By: #### P OCGLUC #### [facility] [address] [address] [address] Karmen Mccormick Urea nitrogen/Creatinine [Mass ratio] 22.8 mg/mg Normal [facility] Comment on above: Performed By: #### P OCGLUC #### [facility] [address] [place] [address] Dr. Karmen Mccormick PROF CHEM 8 (BAS METB)on Anion gap [Moles/Vol] 23.1 mmol/L Normal [facility] Comment on above: Performed By: #### B MP #### [facility] [address] [address] [address] Karmen Mccormick Calcium [Mass/Vol] 9.4 mg/dL Normal 8.5-10.1 [facility] Comment on above: Performed By: #### B MP #### [facility] [address] [address] [address] Karmen Mccormick Chloride [Moles/Vol] 103 mmol/L Normal 98-107 [facility] Comment on above: Performed By: #### B MP #### [facility] [address] [address] [address] Karmen Mccormick CO2 [Moles/Vol] 16.4 mmol/L Critically low 21.0-32.0 [facility] Comment on above: Performed By: #### B MP #### [facility] [address] [address] [address] Karmen Mccormick Creatinine [Mass/Vol] 1.08 mg/dL Critically high 0.55-1.02 [facility] Comment on above: Performed By: #### B MP #### [facility] [address] [address] [address] Karmen Mccormick EGFR-AF GREEK >60 Normal >=60 [facility] Comment on above: Performed By: #### B MP #### [facility] [address] [address] [address] Karmen Mccormick EGFR-NON AF GREEK 50 mL/min/1.73m2 Critically low >=60 [facility] Comment on above: Performed By: #### B MP #### [facility] [address] [address] [address] Karmen Mccormick Glucose [Mass/Vol] 368 mg/dL Critically high 74-106 [facility] Comment on above: Performed By: #### B MP #### [facility] [address] [address] [address] Karmen Mccormick Potassium [Moles/Vol] 4.5 mmol/L Normal 3.5-5.1 [facility] Comment on above: Performed By: #### B MP #### [facility] [address] [address] [address] Karmen Mccormick Sodium [Moles/Vol] 138 mmol/L Normal 136-145 [facility] Comment on above: Performed By: #### B MP #### [facility] [address] [address] [address] Karmen Mccormick Urea nitrogen [Mass/Vol] 23.0 mg/dL Critically high 7.0-18.0 [facility] Comment on above: Performed By: #### B MP #### [facility] [address] [place] [address] Dr. Karmen Mccormick Urea nitrogen/Creatinine [Mass ratio] 21.3 mg/mg Normal [facility] Comment on above: Performed By: #### B MP #### [facility] [address] [place] [address] Dr. Karmen Mccormick PROTIMEon 03-27-2022 INR Coag (PPP) [Relative time] 0.99 {INR} Normal [facility] Comment on above: Performed By: #### B MP #### [facility] [address] [place] [address] Dr. Karmen Mccormick INR GUIDELINES SEE BELOW Normal [facility] Comment on above: Result Comment: ELVIRA RED INR: 2.0 - 3.0 CONDITIONS NOT LISTED BELOW 2.5 - 3.5 FOR PROSTHETIC HEART VALVE REPLACEMENT 2.5 - 3.5 RECURRENT THROMBOSIS Performed By: #### B MP #### [facility] [address] [place] [address] Dr. Karmen Mccormick PT Coag (PPP) [Time] 10.7 s Normal 9.0-11.6 [facility] Comment on above: Performed By: #### B MP #### [facility] [address] [place] [address] Dr. Karmen Mccormick PTTon 03-27-2022 aPTT Coag (Bld) [Time] 22.0 s Critically low 22.3-36.2 [facility] Comment on above: Performed By: #### A CETON #### [facility] [address] [place] [address] Dr. Karmen Mccormick TROPONIN, HIGH SENSITIVITYon 03-27-2022 HSTROP 54.4 pg/mL Critically high 4.0-51.3 [facility] Comment on above: Result Comment: CUT- OFF POINTS HAVE BEEN ESTABLISHED BASED ON THE FOURTH UNIVERSAL DEFINITIONS OF MYOCARDIAL INFARCTION. THE UPPER REFERENCE LIMIT (URL) OF TROPONIN, DEFINED THE 99TH PERCENTILE OF cTnI DISTRIBUTION IN A REFERENCE POPULATION, HAS BEEN CONFIRMED THE DECISION THRESHOLD FOR ME DIAGNOSIS. Performed By: #### C BC #### [facility] [address] [address] [address] Karmen Mccormick HSTROP 59.3 pg/mL Critically high 4.0-51.3 [facility] Comment on above: Result Comment: CUT- OFF POINTS HAVE BEEN ESTABLISHED BASED ON THE FOURTH UNIVERSAL DEFINITIONS OF MYOCARDIAL INFARCTION. THE UPPER REFERENCE LIMIT (URL) OF TROPONIN, DEFINED THE 99TH PERCENTILE OF cTnI DISTRIBUTION IN A REFERENCE POPULATION, HAS BEEN CONFIRMED THE DECISION THRESHOLD FOR ME DIAGNOSIS. Performed By: #### P OCGLUC #### [facility] [address] [address] [address] Karmen Mccormick TSHon 03-27-2022 TSH 1.327 uIU/mL Normal 0.358-3.740 [facility] Comment on above: Performed By: #### P OCGLUC #### [facility] [address] [place] [address] Dr. Kamren Mccormick Vital Signs Date Time Vital Sign Value Performing Clinician Faci lity 04-05-2025 11:32-0400 Body height 177.8 cm Adan Pearson DPM Work Phone: [facility] 04-05-2025 11:32-0400 Body mass index (BMI) [Ratio] 29.41 kg/m2 Adan Pearson DPM Work Phone: [facility] 04-05-2025 11:32-0400 Body weight 92.99 kg Adan Pearson DPM Work Phone: [facility] 04-05-2025 11:32-0400 Respiratory rate 16 /min Adan Pearson DPM Work Phone: [facility] 12-21-2024 10:26-0400 Body height 177.8 cm Lety Rothman MD Work Phone: [facility] 12-21-2024 10:26-0400 Body mass index (BMI) [Ratio] 29.41 kg/m2 Lety Rothman MD Work Phone: [facility] 12-21-2024 10:26-0400 Body weight 92.99 kg Lety Rothman MD Work Phone: [facility] 12-21-2024 10:26-0400 Diastolic blood pressure 66 mm[Hg] Lety Rothman MD Work Phone: [facility] 12-21-2024 10:26-0400 Heart rate 55 /min Lety Rothman MD Work Phone: [facility] 12-21-2024 10:26-0400 Respiratory rate 16 /min Lety Rothman MD Work Phone: [facility] 12-21-2024 10:26-0400 SaO2% (BldA) [Mass fraction] 97 % Lety Rothman MD Work Phone: [facility] 12-21-2024 10:26-0400 Systolic blood pressure 124 mm[Hg] Lety Rothman MD Work Phone: [facility] 11-16-2024 13:14-0500 Body height 177.8 cm Adan Pearson DPM Work Phone: [facility] 11-16-2024 13:14-0500 Body mass index (BMI) [Ratio] 30.13 kg/m2 Adan Pearson DPM Work Phone: [facility] 11-16-2024 13:14-0500 Body weight 95.25 kg Adan Pearson DPM Work Phone: [facility] 11-16-2024 13:14-0500 Respiratory rate 18 /min Adan Pearson DPM Work Phone: [facility] 06-14-2024 11:12-0400 Body height 180.3 cm Lety Rothman MD Work Phone: [facility] 06-14-2024 11:12-0400 Body mass index (BMI) [Ratio] 29.15 kg/m2 Lety Rothman MD Work Phone: [facility] 06-14-2024 11:12-0400 Body weight 94.8 kg Lety Rothman MD Work Phone: [facility] 06-14-2024 11:12-0400 Diastolic blood pressure 78 mm[Hg] Lety Rothman MD Work Phone: [facility] 06-14-2024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 FoundNo Family History Records Found Advance Directives No Advanced Directives Records FoundNo Advanced Directives Records FoundNo Advanced Directives Records Found Additional Source Comments INFORMATION SOURCE (unrecogn ized section and content) DATE CREATED AUTHOR [facility]/26/2022 [facility] DATE CREATED AUTHOR AUTHOR'S ORGANIZ ATION 11/24/2024 [facility] DATE CREATED AUTHOR AUTHOR'S ORGANIZ ATION 04/06/2025 [facility] Care Teams (unrecognized sec tion and content) Feller Buncher Operator Relationship Specialty Start Date End Date Yessica Sheffield MD [address] [place] [address] PCP - General Pediatrics 04/26/23 Feller Buncher Operator Relationship Specialty Start Date End Date Yessica Sheffield MD [address] [place], [place] [id number] PCP - General Pediatrics 04/26/23 Feller Buncher Operator Relationship Specialty Start Date End Date Yessica Sheffield MD [address] [place] [address] PCP - General Pediatrics 04/26/23 Feller Buncher Operator Relationship Specialty Start Date End Date Yessica Sheffield MD [address] [place] [address] PCP - General Pediatrics 04/26/23 Feller Buncher Operator Relationship Specialty Start Date End Date Yessica Sheffield MD [address] [place] [address] PCP - General Pediatrics 04/26/23 Feller Buncher Operator Relationship Specialty Start Date End Date Yessica Sheffield MD [address] [place] [address] PCP - General Pediatrics 04/26/23 Feller Buncher Operator Relationship Specialty Start Date End Date Yessica Sheffield MD [address] [place] [address] PCP - General Pediatrics 04/26/23 Feller Buncher Operator Relationship Specialty Start Date End Date Yessica Sheffield MD [address] [place] [address] PCP - General Pediatrics 04/26/23 Feller Buncher Operator Relationship Specialty Start Date End Date Yessica Sheffield MD [address] [place] [address] PCP - General Pediatrics 04/26/23 Reason for Visit (unrecogniz ed section and content) Reason Comments Diabetes Follow-up Reason Comments DM Foot Care Dm nail care Reason Onset Date Comments Med Refill 12/25/2024 Reason Comments DM Foot Care FOR RECORDS PERTAINING TO PATIENTS WHO ARE [...] BE BASED ON THE PRIMARY CLINICAL RECORDS. [facility]. provides no warranty or guarantee of the accuracy or completeness of information in this document.
--- NOTE | 2025-06-19 19:34 | PC.NURSE ---
i walked into this patient's room to find this patient awake and alert sitting up right on the bed talking to her . i did introduced myself to this patient and her this patient complains of nausea vomiting and abdomen cramps onset 4 days ago. this patient asking for a brief, so i gave this patient and brief, she said do you have the other kind? i replied these are the only ones we have. I informed her that Dr Fajardo or Davon the PA will be in shortly to see you this patient show no signs of distress
--- NOTE | 2025-06-19 19:43 | CT_ITS ---
The [address] [address] Patient Name: DUYEN ANAYA MRN: [id number] date: 1955 Sex: F Assigned Patient Location: ER Current Patient Location: ER Accession/Order Number: [id number] Exam Date: 06/19/2025 20:10 Report Date: 06/19/2025 20:28 At the request of: PAYTON KATZ MD Procedure: CT abdomen pelvis w con CT ABDOMEN AND PELVIS WITH INTRAVENOUS CONTRAST: CLINICAL HISTORY: vomiting COMPARISON: 01/02/2025 TECHNIQUE: Spiral images were obtained through the abdomen and pelvis following the administration of intravenous contrast. This CT exam was performed using one or more following dose reduction techniques: Automated exposure control, adjustment of the mA and/or kV according to patient size, or use of iterative reconstruction technique. FINDINGS: Lung Bases: [Lung bases are clear.] Organs:Liver, spleen, adrenals, gallbladder and pancreas are unremarkable. Kidneys symmetric in size without hydronephrosis.[ GI: Moderate hiatal hernia. Mild antral thickening. Mild to moderate stool retention. No bowel obstruction. [id number] distal colonic diverticulosis. No bowel wall thickening or evidence of colonic diverticulitis. Appendix not visualized.[ Pelvis:[Hysterectomy. No adnexal mass. Bladder unremarkable.] Peritoneum/Retroperitoneum:No free air or free fluid. Aortic vascular calcifications.[ Abd wall/Bones:Multilevel changes. No suspicious osseous lesion.[ CT/CT abdomen pelvis w con IMPRESSION: Negative inflammatory process or bowel obstruction Moderate retrocardiac hiatal hernia. Colonic diverticulosis. Impression dictated by: Jai Casas M.D. 06/19/2025 8:28 PM Dictation Location: [place] [address] Electronically authenticated by: [id number] Y Date: 06/19/2025 20:28
--- NOTE | 2025-06-19 19:45 | ED.NAVMDI1 ---
HPI - Nausea/Vomiting/Diarrhea General Chief complaint: Nausea/Vomiting/Diarrhea Stated complaint: OTHER Time Seen by Provider: 06/19/25 19:39 Source: patient Mode of arrival: ambulance Limitations: no limitations History of Present Illness HPI Narrative: past history of diabetes. describes her disimpacting her last PM because she did not have a BM for 5 days. Vomiting past 4-5 days whenever she would eat or drink. Had abdominal pain last PM. less pain today. No fever or urinary symptoms. Only pass abdominal surgery was hysterectomy Related Data Home Medications ?Medication ?Instructions ?Recorded ?Confirmed albuterol sulfate 90 mcg/actuation 2 puff inhalation Q4H PRN 06/28/23 01/01/25 aerosol inhaler shortness of breath or wheezing atorvastatin 80 mg tablet 80 mg PO DAILY 06/28/23 01/01/25 bupropion HCl 150 mg tablet,12 hr 150 mg PO DAILY 06/28/23 01/01/25 sustained-release buspirone 15 mg tablet 15 mg PO BID 06/28/23 01/02/25 dapagliflozin propanediol 10 mg 10 mg PO DAILY 06/28/23 01/01/25 tablet (Farxiga) fluoxetine 40 mg capsule 40 mg PO DAILY 06/28/23 01/01/25 insulin glargine 100 unit/mL (3 30 unit subcut BEDTIME 06/28/23 01/01/25 mL) subcutaneous pen (Lantus Solostar U-100 Insulin) metoprolol succinate 50 mg 50 mg PO DAILY 06/28/23 01/01/25 tablet,extended release 24 hr nitroglycerin 0.4 mg sublingual 0.4 mg sublingual Q5M PRN chest 06/28/23 01/01/25 tablet pain pantoprazole 40 mg tablet,delayed 40 mg PO DAILY 06/28/23 01/01/25 release prazosin 2 mg capsule 2 mg PO .q hs 06/28/23 01/01/25 trazodone 50 mg tablet 50 mg PO .q hs PRN sleep 01/01/25 01/02/25 gabapentin 300 mg capsule 300 mg PO BID 01/02/25 01/02/25 insulin lispro 100 unit/mL 10 unit subcut TIDWM 01/02/25 01/02/25 subcutaneous pen lisinopril 20 mg tablet 20 mg PO DAILY 01/02/25 01/02/25 semaglutide 0.25 mg or 0.5 mg (2 0.5 mg subcut QWEEK 01/02/25 01/02/25 mg/3 mL) subcutaneous pen injector (Ozempic) Previous Rx's ?Medication ?Instructions ?Recorded meclizine 25 mg tablet 25 mg PO TID PRN dizziness #30 tabs 07/30/23 ondansetron 4 mg disintegrating 4 mg PO Q6H PRN nausea and 07/30/23 tablet vomiting #20 tabs aspirin 81 mg capsule 81 mg PO DAILY #30 caps 01/02/25 ciprofloxacin HCl 500 mg tablet 500 mg PO Q12H #20 tabs 01/02/25 (Cipro) isosorbide mononitrate 30 mg 60 mg (2 x 30 mg) PO DAILY #60 tabs 01/02/25 tablet,extended release 24 hr metronidazole 500 mg tablet 500 mg PO Q8H #30 tabs 01/02/25 ondansetron 4 mg disintegrating 4 mg PO Q6H PRN nausea and 06/14/25 tablet vomiting #20 tabs Allergies Allergy/AdvReac Type Severity Reaction Status Date / Time No Known Drug Allergies Allergy Verified 06/19/25 18:42 Review of Systems ROS Status of ROS 10 or more systems reviewed and unremarkable except as noted in history and below [facility] Medical History (Updated 06/19/25 @ 23:59 by Soham Fajardo MD) Hyperglycemia ?R73.9 - Hyperglycemia, unspecified (ICD-10) Acute UTI ?N39.0 - Urinary tract infection, site not specified (ICD-10) Elevated troponin ?R79.89 - Other specified abnormal findings of blood chemistry (ICD-10) Nausea, vomiting, and diarrhea ?R11.2 - Nausea with vomiting, unspecified (ICD-10) ?R19.7 - Diarrhea, unspecified (ICD-10) Social History Smoking status: Never smoker Highest level of school completed/degree received: high school graduate Little interest or pleasure in doing things: not at all Feeling down, depressed, or hopeless: not at all Exam Constitutional Vital Signs, click to edit/add: Last Vital Signs Temp 99.3 F 06/19/25 23:19 Pulse 73 06/19/25 18:42 Resp 16 06/19/25 18:42 BP 154/92 H 06/19/25 18:42 Pulse Ox 99 06/19/25 18:42 O2 Del Method Room Air 06/19/25 18:42 Common normals: average body habitus, oriented x3, no limitations, healthy appearing, alert and well nourished [facility] Common normals: normocephalic and head/scalp atraumatic Other: very poor dentition Eye Common normals: EOMs intact bilaterally and conjunctivae normal Respiratory Common normals: normal respiratory effort, no retractions, no use of accessory muscles and clear to auscultation bilaterally Cardio Common normals: regular rate, regular rhythm, S1 normal heart sound and S2 normal heart sound GI Common normals: Normal to inspection, nondistended, normoactive bowel sounds present, soft to palpation and non-tender Extremity Common normals: normal to inspection and full ROM Neuro Common normals: oriented x3, CN's II-XII intact bilaterally, moves all extremities and no focal motor deficits Psych Appearance: grossly normal Course Vital Signs Vital signs: Vital Signs Temperature 98 F 06/19/25 18:42 Pulse Rate 73 06/19/25 18:42 Respiratory Rate 16 06/19/25 18:42 Blood Pressure 154/92 H 06/19/25 18:42 Pulse Oximetry 99 06/19/25 18:42 Oxygen Delivery Method Room Air 06/19/25 18:42 Temperature 99.3 F 06/19/25 23:19 Pulse Rate 73 06/19/25 18:42 Respiratory Rate 16 06/19/25 18:42 Blood Pressure 154/92 H 06/19/25 18:42 Pulse Oximetry 99 06/19/25 18:42 Oxygen Delivery Method Room Air 06/19/25 18:42 MDM - Nausea/Vomiting/Diarrhea MDM Narrative Medical decision making narrative: patient presents with main complaint of recurrent vomiting over past 4 days. Describes stool impaction that was removed by her last PM. One day she had chest pain that lasted about 3 minutes. No recurrence. abdomen is nontender. She is poor historian. States she does not have any heart disease and not aware of a past heart attack but does see cardiology in [place] and is on medication for her chest pain. Review of her chart finds she is on isosorbide. Her troponin here is elevated at 90.2. repeat troponin 93.4. Her EKG demonstrates NSR with old inferior wall PR. No acute findings. cxray with cardiomegaly CT abd without inflammatory findings but does demonstrate constipation. Patient has required repeated doses of zofran for nausea and Phenergan is now ordered. Discussed with the hospitalist and will plan admission Lab Data Labs: Lab Results 06/19/25 06/19/25 Range/Units 19:54 23:09 WBC 11.3 H (4.0-11.0) 10^3/uL RBC 5.13 (4.20-5.40) 10^6/uL Hgb 14.6 (12.0-16.0) g/dL Hct 43.6 (36.0-48.0) % MCV 85.0 (81.0-99.0) fL MCH 28.5 (26.7-34.0) pg MCHC 33.5 (29.9-35.2) g/dL RDW 13.1 (11.0-15.0) % Plt Count 317 (150-450) 10^3/uL MPV 10.8 (9.5-13.5) fL Neut % (Auto) 66.7 (43.0-75.0) % Lymph % (Auto) 23.6 (20.5-60.0) % [place] % (Auto) 6.4 (1.7-12.0) % Eos % (Auto) 2.3 (0.9-7.0) % Baso % (Auto) 0.6 (0.2-2.0) % Neut # (Auto) 7.6 H (1.4-6.5) 10^3/uL Lymph # (Auto) 2.7 (1.2-3.8) 10^3/uL [place] # (Auto) 0.7 (0.3-0.8) 10^3/uL Eos # (Auto) 0.3 (0.0-0.7) 10^3/uL Baso # (Auto) 0.1 (0.0-0.1) 10^3/uL Abs Immat Gran (auto) 0.05 H (0.00-0.03) 10^3/uL Imm/Tot Granulo (auto) 0.4 (0.0-0.5) % Sodium 137 (136-145) mmol/L Potassium 4.4 (3.5-5.1) mmol/L Chloride 100 (98-107) mmol/L Carbon Dioxide 23.2 (21.0-32.0) mmol/L Anion Gap 18.2 BUN 29.0 H (7.0-18.0) mg/dL Creatinine 0.86 (0.55-1.02) mg/dL Est GFR ( Amer) >60 (>=60 mL/min/1.73m^2) Est GFR (Non-Af Amer) >60 (>=60 mL/min/1.73m^2) BUN/Creatinine Ratio 33.7 Glucose 254 H (74-106) mg/dL Lactate 0.8 (0.4-2.0) mmol/L Calcium 9.9 (8.5-10.1) mg/dL Total Bilirubin 0.4 (0.2-1.0) mg/dL AST 9 L (15-37) U/L ALT 19 (14-59) U/L Alkaline Phosphatase 108 (46-116) U/L Troponin I High Sens 90.2 H* 93.4 H* (4.0-51.3) pg/mL Total Protein 7.6 (6.4-8.2) g/dL Albumin 3.5 (3.4-5.0) g/dL Globulin 4.1 g/dL Albumin/Globulin Ratio 0.9 Lipase 32.0 (16.0-77.0) U/L Acetone, Qual Small A (NEGATIVE) Imaging Data Chest x-ray: Radiologist's impression: ITS Impressions Abdomen/Pelvis CT 06/19/25 19:43 IMPRESSION: Negative inflammatory process or bowel obstruction Moderate retrocardiac hiatal hernia. Colonic diverticulosis. Impression dictated by: Jai Casas M.D. 06/19/2025 8:28 PM Dictation Location: [facility] Electronically authenticated by: [id number] Y Date: 06/19/2025 20:28 Chest X-Ray 06/19/25 21:32 IMPRESSION: Cardiomegaly. Negative acute pleural-parenchymal disease. Impression dictated by: Jai Casas M.D. 06/19/2025 10:15 PM Dictation Location: [facility] Electronically authenticated by: [id number] Y Date: 06/19/2025 22:15 Discharge Plan Discharge Chief Complaint: Nausea/Vomiting/Diarrhea Clinical Impression: Elevated troponin, Vomiting Patient Disposition: Admitted As Inpatient
[2025-06-19] MEDS: 0.9 % SODIUM CHLORIDE 1,000 ML 999 ML IV (19:53)
[2025-06-19 20:05] LABS: Hematocrit 43.6 % (36.0-48.0); Hemoglobin 14.6 g/dL (12.0-16.0); Immature Granulocytes Abs Auto 0.05 10^3/uL (0.00-0.03); Immature Granulocytes Pct Auto 0.4 % (0.0-0.5); Lymphocytes Absolute Auto 2.7 10^3/uL (1.2-3.8); Mean Corpuscular HGB Conc 33.5 g/dL (29.9-35.2); Mean Corpuscular Hemoglobin 28.5 pg (26.7-34.0); Mean Corpuscular Volume 85.0 fL (81.0-99.0); Platelet Count 317 10^3/uL (150-450); Red Blood Count 5.13 10^6/uL (4.20-5.40); White Blood Count 11.3 10^3/uL (4.0-11.0)
[2025-06-19 20:29] LABS: Lactate/Lactic Acid 0.8 mmol/L (0.4-2.0)
[2025-06-19 20:35] LABS: Alanine Aminotransferase 19 U/L (14-59); Albumin Globulin Ratio 0.9; Albumin Level 3.5 g/dL (3.4-5.0); Alkaline Phosphatase 108 U/L (46-116); Anion Gap 18.2; Aspartate Amino Transferase 9 U/L (15-37); Blood Urea Nitrogen 29.0 mg/dL (7.0-18.0); Calcium 9.9 mg/dL (8.5-10.1); Carbon Dioxide 23.2 mmol/L (21.0-32.0); Chloride 100 mmol/L (98-107); Estimated GFR (African America >60 (>=60 mL/min/1.73m^2); Estimated GFR (Non-African Ame >60 (>=60 mL/min/1.73m^2); Globulin 4.1 g/dL; Glucose 254 mg/dL (74-106); Lipase 32.0 U/L (16.0-77.0); Potassium 4.4 mmol/L (3.5-5.1); Sodium 137 mmol/L (136-145); Total Protein 7.6 g/dL (6.4-8.2)
--- NOTE | 2025-06-19 20:42 | PC.NURSE ---
i was told that this patient's trop=90.2, i informed Dr Fajardo of this result
--- NOTE | 2025-06-19 20:45 | PC.NURSE ---
this patient awake and alert sitting upright in the bed watching tv this patient voices no concerns, needs and shows no sins of distress
--- NOTE | 2025-06-19 21:01 | ECG_ITS ---
[facility] Test Date: 2025-06-19 Pat Name: DUYEN ANAYA Department: Room: - Gender: Female Machine Lacer: : 1955 Requested By: [id number] Order Number: [id number] Reading MD: YAEL ESPINOZA M.D. Measurements Intervals Cory Rate: 66 P: 16 MN: 140 QRS: -17 QRSD: 100 T: 19 QT: 442 QTc: 456 Interpretive Statements 1100 Sinus rhythm 3633 Inferior myocardial infarction, probably old 5233 Voltage criteria for LVH 9150 abnormal ECG Compared to ECG 01/01/2025 16:52:02 Left ventricular hypertrophy now present Left anterior fascicular block no longer present Myocardial infarct finding still present Electronically Signed On 06-20-2025 7:56:18 EDT by YAEL ESPINOZA M.D.
--- NOTE | 2025-06-19 21:32 | XR_ITS ---
The [address] [address] Patient Name: DUYEN ANAYA MRN: [id number] date: 1955 Sex: F Assigned Patient Location: ER Current Patient Location: ER Accession/Order Number: [id number] Exam Date: 06/19/2025 21:32 Report Date: 06/19/2025 22:15 At the request of: PAYTON KATZ MD Procedure: XR chest 1V PA CHEST: CLINICAL HISTORY: elevated troponin COMPARISON: 11/25/2022 Enlarged cardiomediastinal silhouette. Lungs are clear. No effusion or pneumothorax. XR/XR chest 1V IMPRESSION: Cardiomegaly. Negative acute pleural-parenchymal disease. Impression dictated by: Jai Casas M.D. 06/19/2025 10:15 PM Dictation Location: [place] [address] Electronically authenticated by: [id number] Y Date: 06/19/2025 22:15
--- NOTE | 2025-06-19 22:16 | PC.NURSE ---
clinical lab scientist was unable to re draw this patient because this patient yelling and pulling arm away i attempted to draw from iv site but unsuccessful so i asked this patient if she allow me to redraw her she said i guess you have too
--- NOTE | 2025-06-19 23:37 | PC.NURSE ---
lab called with the 2nd trop= 93.[address] Fajardo informed of this 2nd trop result
[2025-06-20] VITALS (24 sets, daily range): BP systolic 106–230; BP diastolic 68–130; PULSE 56–78; TEMP 36.6–36.9; O2SAT 93–98; BMI 26.3
--- NOTE | 2025-06-20 00:07 | PC.NURSE ---
this patient has been updated of her admission to this hospital, but we are waiting on a room number for you , once i get this room number i will tell then we will go upstairs. this patient voices no concerns, needs and shows no signs of distress
[2025-06-20] MEDS: PROMETHAZINE HCL 12.5 MG in 0.9 % SODIUM CHLORIDE 50 ML 202 MG IV (00:57)
--- NOTE | 2025-06-20 01:15 | PC.NURSE ---
DR Fajardo informed of this patient blood pressure and another vomiting brown in color before i hung the promethazine IVPB
[2025-06-20] MEDS: HYDRALAZINE HCL 20 MG/ML VIAL 10 MG IVP (01:19)
--- OUTSIDE RECORDS SUMMARY | 2025-06-20 02:11 | XMS_ITS | CCD ---
Author Organization [facility] Care Team Providers Care Health Services Rn Name Role Phone [facility] Primary Care Unavailable HOY ., [...] source) Acetaminophen / oxyCODONE Drug Allergy 1 [facility] (14 sources) Acetaminophen / oxyCODONE Drug Allergy 3 GI intolerance [facility] (14 sources) Dextromethorphan / guaiFENesin Drug Allergy [address] [facility] (14 sources) guaiFENesin Drug Allergy 3 [facility] Medications Current Medications Medication Drug Class(es) Dates Sig (Normalized) Sig (Original) acetaminophen 325 mg / HYDROcodone bitartrate 7.5 mg oral tablet (14 sources) Opioid Agonist HYDROcodone-acet ami nophen (Hanna) 7.5-325 MG tablet Active [id number] 200 actuat albuterol 0.09 mg/actuat metered dose [...] hyperglycemia, with long-term current use of insulin ([facility]) Inject 4 Units under the skin in [...] (14 sources) Polyene Antifungal Start: nystatin (Mycostatin) 827871 UNIT/GM powder Apply 2-3 application topically if needed for rash 01/06/2024 Active ondansetron 4 mg oral tablet (13 sources) Serotonin-3 Receptor Antagonist Start: 025 End: take 1 tablet by mouth every eight hours for nausea ondansetron (Zofran) 4 MG tablet Indications: Type 2 diabetes mellitus with hyperglycemia, with long-term current use of insulin ([facility]) Take 1 tablet (4 mg) by mouth [...] or split. . Active polyethylene glycol 3350 84541 mg powder for oral solution (14 sources) [...] long-term current use of insulin ([facility]) Inject 0.5 mg under the skin [...] disease (1 source) Atherosclerotic heart disease of 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 - Hematology and Cell countson 12-21-2024 HbA1c (Bld) [Mass fraction] 12.3 % [facility] No Panel InformationOrdered By: Edna Lloyd on 12-21-2024 [facility] Provider Letteron 11-15-2024 Provider Letter Provider Letter November 15, 2024 MORELIA GODOY [address] [place] [address] [address] [place] [address] : 1955 Dear _ , We have [...] attention to this matter. Sincerely, Family Medicine [address] [address] [phone] Normal [facility] Glucose (Bld) [Mass/Vol]on Glucose Blood, POC 520 mg/dL [facility] HbA1c (Bld) [Mass fraction]o n 06-14-2024 [facility] - Hematology and Cell countson 06-14-2024 HbA1c (Bld) [Mass fraction] [facility] Covid-19 PCR (CVDTBH)on 11-11 SARS-CoV-2 (COVID-19) RNA IRVIN+probe Ql (Unsp spec) Not detected Normal NOT DETECTED [facility] Comment on above: Result Comment: When diagnostic [...] for this test is supported by the [place] of Health and Human Service's declaration that [...] used). Performed By: #### P OCGLUC #### [facility] [address] [place] [address] Dr. Karmen Mccormick INFLUENZA A AND B [facility] 11-25 [facility] SEE BELOW Normal [facility] Comment on above: Result Comment: Nega tive for Flu A protein angiten. Infection due to Flu A cannot be ruled out. Flu A angiten in the sample may be below the detection limit of the test. Performed By: #### P OCGLUC #### [facility] [address] [place] [address] Dr. Karmen [facility]ccorm[facility] SEE BEL[facility] Normal [facility] Comment on above: Result Comment: Nega tive for Flu B protein antigen. Infection due to Flu B cannot be ruled out. Flu B antigen in the sample may be below the detection limit of the test. Performed By: #### P OCGLUC #### [facility] [address] [place] [address] Dr. Karmen Mccormick INFLUENZA A AG Negative Normal NEGATIVE SEE COMMENT [facility] Comment on above: Performed By: #### P OCGLUC #### [facility] [address] [place] [address] Dr. Karmen Mccormick INFLUENZA B AG Negative Normal NEGATIVE SEE COMMENT [facility] Comment on above: Performed By: #### P OCGLUC #### [facility] [address] [place] [address] Dr. Karmen Mccormick XR CHEST 2 Von [...] by: JANICE CAMP Date: 2022-11-25 17:31 Normal [facility] XR FOOT RT MIN 3 VIEWSon XR [...] by: EUFEMIA LOPEZ Date: 2022-09-09 09:54 Normal [facility] OCC BLD IMMUNO SCREENon 04-15 OCCULT BLOOD Negative Normal NEGATIVE [facility] Comment on above: Performed By: #### B MP #### [facility] [address] [address] [address] Karmen Mccormick POINT OF CARE GLUCOSEon 04-15 Glucose [Mass/Vol] 99 mg/dL Normal 74-106 [facility] Comment on above: Performed By: #### P OCGLUC #### [facility] [address] [address] [address] Karmen Mccormick POINT OF CARE GLUCOSEon 04-14 Glucose [Mass/Vol] 139 mg/dL Critically high 74-106 [facility] Comment on above: Performed By: #### C VDTBH #### [facility] [address] [address] [address] Karmen Mccormick Glucose [Mass/Vol] 183 mg/dL Critically high -106 [facility] Comment on above: Performed By: #### P OCGLUC #### [facility] [address] [address] [address] Karmen Mccormick Glucose [Mass/Vol] 217 mg/dL Critically high -106 [facility] Comment on above: Performed By: #### P OCGLUC #### [facility] [address] [address] [address] Karmen Mccormick Glucose [Mass/Vol] 108 mg/dL Critically high [facility]106 [facility] Comment on above: Performed By: #### C VDTBH #### [facility] [address] [place] [address] Dr. Karmen Mccormick CULTURE URINEon 05-10-2022 CULTURE [...] F Trimethoprim/Sulfam ethoxazole <=20 S F Normal [facility] Comment on above: Performed By: #### P OCGLUC #### [facility] [address] [place] [address] Dr. Karmen Mccormick POINT OF CARE GLUCOSEon 04-14 Glucose [Mass/Vol] 194 mg/dL Critically high [address] [place] [address] Comment on above: Performed By: #### P OCGLUC #### [facility] [address] [place] [address] Dr. Karmen Mccormick Glucose [Mass/Vol] 135 mg/dL Critically high 74-106 [facility] Comment on above: Performed By: #### C BC #### [facility] [address] [address] [address] Karmen Mccormick Glucose [Mass/Vol] 208 mg/dL Critically high 74-106 [facility] Comment on above: Performed By: #### P OCGLUC #### [facility] [address] [address] [address] Karmen Mccormick Glucose [Mass/Vol] 79 mg/dL Normal 74-106 [facility] Comment on above: Performed By: #### P OCGLUC #### [facility] [address] [address] [address] Karmen Mccormick IRON AND TIBCon 05-09-2022 % SATURATION 9.9 % Normal [facility] Comment on above: Performed By: #### C BC #### [facility] [address] [address] [address] Karmen Mccormick Iron [Mass/Vol] 25.0 ug/dL Critically low 50.0-170.0 [facility] Comment on above: Performed By: #### C BC #### [facility] [address] [address] [address] Karmen Mccormick TIBC DIRECT 253.0 ug/dL Normal 250.0-450.0 [facility] Comment on above: Performed By: #### C BC #### [facility] [address] [address] [address] Karmen Mccormick POINT OF CARE GLUCOSEon 04-14 Glucose [Mass/Vol] 197 mg/dL Critically high -106 [facility] Comment on above: Performed By: #### P OCGLUC #### [facility] [address] [address] [address] Karmen Mccormick Glucose [Mass/Vol] 119 mg/dL Critically high 74-106 [facility] Comment on above: Performed By: #### C VDTBH #### [facility] [address] [address] [address] Karmen Mccormick Glucose [Mass/Vol] 176 mg/dL Critically high 74-106 [facility] Comment on above: Performed By: #### P OCGLUC #### [facility] [address] [place] [address] Dr. Karmen Mccormick Glucose [Mass/Vol] 118 mg/dL Critically high 74-106 [facility] Comment on above: Performed By: #### P OCGLUC #### [facility] [address] [place] [address] Dr. Karmen Mccormick VIT B12 AND FOLATEon 022 Cobalamin (Vitamin B12) [Mass/Vol] 613.0 pg/mL Normal 193.0-986.0 [facility] Comment on above: Performed By: #### P OCGLUC #### [facility] [address] [place] [address] Dr. Karmen Mccormick FOLATE 17.90 ng/mL Normal 8.60-58.90 [facility] Comment on above: Performed By: #### P OCGLUC #### [facility] [address] [place] [address] Dr. Karmen Mccormick CBC AUTO DIFFon 05-08-2022 BASO # 0.0 103/ul Normal 0.0-0.1 [facility] Comment on above: Performed By: #### P OCGLUC #### [facility] [address] [place] [address] Dr. Karmen Mccormick Basophils/100 WBC (Bld) 0.4 % Normal 0.2-2.0 [facility] Comment on above: Performed By: #### P OCGLUC #### [facility] [address] [place] [address] Dr. Karmen Mccormick EO # 0.2 103/ul Normal 0.0-0.7 [facility] Comment on above: Performed By: #### P OCGLUC #### [facility] [address] [place] [address] Dr. Karmen Mccormick Eosinophils/100 WBC (Bld) 2.3 % Normal 0.9-7.0 [facility] Comment on above: Performed By: #### P OCGLUC #### [facility] [address] [address] [address] Karmen Mccormick Erythrocyte distribution width (RBC) [Ratio] 13.6 % Normal 11.0-15.0 [facility] Comment on above: Performed By: #### P OCGLUC #### [facility] [address] [place] [address] Dr. Karmen Mccormick Hematocrit (Bld) [Volume fraction] 33.6 % Critically low 36.0-48.0 [facility] Comment on above: Performed By: #### P OCGLUC #### [facility] [address] [place] [address] Dr. Karmen Mccormick Hemoglobin (Bld) [Mass/Vol] 10.5 g/dL Critically low 12.0-16.0 [facility] Comment on above: Performed By: #### P OCGLUC #### [facility] [address] [place] [address] Dr. Karmen Mccormick IG # 0.03 10e3/ul Normal 0.00-0.03 [facility] Comment on above: Performed By: #### P OCGLUC #### [facility] [address] [place] [address] Dr. Karmen Mccormick IG % 0.3 % Normal 0.0-0.5 [facility] Comment on above: Performed By: #### P OCGLUC #### [facility] [address] [place] [address] Dr. Karmen Mccormick LYMPH # 1.6 103/ul Normal 1.2-3.8 [facility] Comment on above: Performed By: #### P OCGLUC #### [facility] [address] [place] [address] Dr. Karmen Mccormick Lymphocytes/100 WBC (Bld) 17.1 % Critically low 20.5-60.0 [facility] Comment on above: Performed By: #### P OCGLUC #### [facility] [address] [place] [address] Dr. Karmen Mccormick MANUAL DIFF REQ NO Normal [facility] Comment on above: Performed By: #### P OCGLUC #### [facility] [address] [address] [address] Karmen Mccormick MCH (RBC) [Entitic mass] 29.1 pg Normal 26.7-34.0 [facility] Comment on above: Performed By: #### P OCGLUC #### [facility] [address] [place] [address] Dr. Karmen Mccormick MCHC (RBC) [Mass/Vol] 31.3 g/dL Normal 29.9-35.2 [facility] Comment on above: Performed By: #### P OCGLUC #### [facility] [address] [place] [address] Dr. Karmen Mccormick MCV (RBC) [Entitic vol] 93.1 fL Normal 81.0-99.0 [facility] Comment on above: Performed By: #### P OCGLUC #### [facility] [address] [place] [address] Dr. Karmen Mccormick MONO # 0.6 103/ul Normal 0.3-0.8 [facility] Comment on above: Performed By: #### P OCGLUC #### [facility] [address] [place] [address] Dr. Karmen Mccormick Monocytes/100 WBC (Bld) 6.4 % Normal 1.7-12.0 [facility] Comment on above: Performed By: #### P OCGLUC #### [facility] [address] [place] [address] Dr. Karmen Mccormick NEUT # 6.8 103/ul Critically high 1.4-6.5 [facility] Comment on above: Performed By: #### P OCGLUC #### [facility] [address] [place] [address] Dr. Karmen Mccormick Neutrophils/100 WBC (Bld) 73.5 % Normal 43.0-75.0 [facility] Comment on above: Performed By: #### P OCGLUC #### [facility] [address] [place] [address] Dr. Karmen Mccormick Platelet mean volume (Bld) [Entitic vol] 10.0 fL Normal 9.5-13.5 [facility] Comment on above: Performed By: #### P OCGLUC #### [facility] [address] [address] [address] Karmen Mccormick PLT 223 103/ul Normal 150-450 [facility] Comment on above: Performed By: #### P OCGLUC #### [facility] [address] [address] [address] Karmen Mccormick RBC 3.61 106/ul Critically low 4.20-5.40 [facility] Comment on above: Performed By: #### P OCGLUC #### [facility] [address] [address] [address] Karmen Mccormick WBC 9.3 103/ul Normal 4.0-11.0 [facility] Comment on above: Performed By: #### P OCGLUC #### [facility] [address] [address] [address] Karmen Mccormick POINT OF CARE GLUCOSEon 04-14 Glucose [Mass/Vol] 163 mg/dL Critically high 74-106 [facility] Comment on above: Performed By: #### P OCGLUC #### [facility] [address] [address] [address] Karmen Mccormick Glucose [Mass/Vol] 87 mg/dL Normal 74-106 [facility] Comment on above: Performed By: #### P OCGLUC #### [facility] [address] [place] [address] Dr. Karmen Mccormick Glucose [Mass/Vol] 183 mg/dL Critically high 74-106 [facility] Comment on above: Performed By: #### C BC #### [facility] [address] [address] [address] Karmen Mccormick Glucose [Mass/Vol] 146 mg/dL Critically high 74-106 [facility] Comment on above: Performed By: #### P OCGLUC #### [facility] [address] [place] [address] Dr. Karmen Mccormick PROF CHEM 8 (BAS METB)on Anion gap [Moles/Vol] 11.7 mmol/L Normal [facility] Comment on above: Performed By: #### C BC #### [facility] [address] [address] [address] Karmen Mccormick Calcium [Mass/Vol] 8.4 mg/dL Critically low 8.5-10.1 [facility] Comment on above: Performed By: #### C BC #### [facility] [address] [address] [address] Karmen Mccormick Chloride [Moles/Vol] 104 mmol/L Normal 98-107 [facility] Comment on above: Performed By: #### C BC #### [facility] [address] [address] [address] Karmen Mccormick CO2 [Moles/Vol] 25.2 mmol/L Normal 21.0-32.[address] [facility] Comment on above: Performed By: #### C BC #### [facility] [address] [place] [address] Dr. Karmen Mccormick Creatinine [Mass/Vol] 0.82 mg/dL Normal 0.55-1.02 [facility] Comment on above: Performed By: #### C BC #### [facility] [address] [place] [address] Dr. Karmen Mccormick EGFR-AF MARSHALLESE >60 Normal >=[address] [facility] Comment on above: Performed By: #### C BC #### [facility] [address] [place] [address] Dr. Karmen Mccormick EGFR-NON AF MARSHALLESE >60 Normal >=60 [facility] Comment on above: Performed By: #### C BC #### [facility] [address] [place] [address] Dr. Karmen Mccormick Glucose [Mass/Vol] 175 mg/dL Critically high 74-106 [facility] Comment on above: Performed By: #### C BC #### [facility] [address] [place] [address] Dr. Karmen Mccormick Potassium [Moles/Vol] 4.9 mmol/L Normal 3.5-5.1 [facility] Comment on above: Performed By: #### C BC #### [facility] [address] [address] [address] Karmen Mccormick Sodium [Moles/Vol] 136 mmol/L Normal 136-145 [facility] Comment on above: Performed By: #### C BC #### [facility] [address] [place] [address] Dr. Karmen Mccormick Urea nitrogen [Mass/Vol] 25.0 mg/dL Critically high 7.0-18.0 [facility] Comment on above: Performed By: #### C BC #### [facility] [address] [place] [address] Dr. Karmen Mccormick Urea nitrogen/Creatinine [Mass ratio] 30.5 mg/mg Normal [facility] Comment on above: Performed By: #### C BC #### [facility] [address] [place] [address] Dr. Karmen Mccormick UA RANDOM W/MICROSCOPICon BACTERIA SMALL Abnormal NONE SEEN [facility] Comment on above: Performed By: #### B MP #### [facility] [address] [place] [address] Dr. Karmen Mccormick Bilirubin Ql (U) Negative Normal NEGATIVE [facility] Comment on above: Performed By: #### B MP #### [facility] [address] [place] [address] Dr. Karmen Mccormick CAST NONE SEEN Normal NONE [facility] Comment on above: Performed By: #### B MP #### [facility] [address] [place] [address] Dr. Karmen Mccormick Clarity (U) CLEAR Normal CLEAR [facility] Comment on above: Performed By: #### B MP #### [facility] [address] [place] [address] Dr. Karmen Mccormick Color (U) LT. YELLOW Normal YELLOW [facility] Comment on above: Performed By: #### B MP #### [facility] [address] [place] [address] Dr. Karmen Mccormick Crystals LM Nom (Urine sed) NONE SEEN Normal NONE SEEN [facility] Comment on above: Performed By: #### B MP #### [facility] [address] [place] [address] Dr. Karmen Mccormick Epithelial cells LM Ql (Urine sed) RARE Normal NONE SEEN /RARE [facility] Comment on above: Performed By: #### B MP #### [facility] [address] [address] [address] Karmen Mccormick Glucose Ql (U) >[address] [facility] Comment on above: Performed By: #### B MP #### [facility] [address] [address] [address] Karmen Mccormick Hemoglobin Ql (U) MODERATE Abnormal NEGATIVE [facility] Comment on above: Performed By: #### B MP #### [facility] [address] [address] [address] Karmen Mccormick Ketones Ql (U) Negative Normal NEGATIVE [facility] Comment on above: Performed By: #### B MP #### [facility] [address] [place] [address] Dr. Karmen Mccormick LEUKOCYTES TRACE Abnormal NEGATIVE [facility] Comment on above: Performed By: #### B MP #### [facility] [address] [address] [address] Karmen Mccormick MUCOUS NONE SEEN Normal NONE SEEN [facility] Comment on above: Performed By: #### B MP #### [facility] [address] [place] [address] Dr. Karmen Mccormick Nitrite Ql (U) Positive Abnormal NEGATIVE [facility] Comment on above: Performed By: #### B MP #### [facility] [address] [address] [address] Karmen Mccormick pH (U) 6.0 [pH] Normal 5-9 [facility] Comment on above: Performed By: #### B MP #### [facility] [address] [place] [address] Dr. Karmen Mccormick RBC 10-20 Abnormal 0-2 [facility] Comment on above: Performed By: #### B MP #### [facility] [address] [place] [address] Dr. Karmen Mccormick SPEC GRAVITY 1.020 Normal 1.005-<=1.025 [facility] Comment on above: Performed By: #### B MP #### [facility] [address] [place] [address] Dr. Karmen Mccormick UA PROTEIN TRACE Normal NEGATIVE/ TRACE [facility] Comment on above: Performed By: #### B MP #### [facility] [address] [place] [address] Dr. Karmen Mccormick Urobilinogen Qn (U) 0.2 {Rajeev'U}/dL Normal 0.2 - 1. 0 [facility] Comment on above: Performed By: #### B MP #### [facility] [address] [place] [address] Dr. Karmen Mccormick WBC 5-10 Abnormal NONE SEEN [facility] Comment on above: Performed By: #### B MP #### [facility] [address] [place] [address] Dr. Karmen Mccormick CBC AUTO DIFFon 05-07-2022 BASO # 0.1 103/ul Normal 0.0-0.1 [facility] Comment on above: Performed By: #### A CETON #### [facility] [address] [place] [address] Dr. Karmen Mccormick Basophils/100 WBC (Bld) 0.5 % Normal 0.2-2.0 [facility] Comment on above: Performed By: #### A CETON #### [facility] [address] [place] [address] Dr. Karmen Mccormick EO # 0.2 103/ul Normal 0.0-0.7 [facility] Comment on above: Performed By: #### A CETON #### [facility] [address] [place] [address] Dr. Karmen Mccormick Eosinophils/100 WBC (Bld) 1.6 % Normal 0.9-7.0 [facility] Comment on above: Performed By: #### A CETON #### [facility] [address] [place] [address] Dr. Karmen Mccormick Erythrocyte distribution width (RBC) [Ratio] 13.4 % Normal 11.0-15.0 [facility] Comment on above: Performed By: #### A CETON #### [facility] [address] [address] [address] Karmen Mccormick Hematocrit (Bld) [Volume fraction] 38.0 % Normal 36.0-48.0 [facility] Comment on above: Performed By: #### A CETON #### [facility] [address] [place] [address] Dr. Karmen Mccormick Hemoglobin (Bld) [Mass/Vol] 12.3 g/dL Normal 12.0-16.0 [facility] [facility] Comment on above: Performed By: #### A CETON #### [facility] [address] [address] [address] Karmen Mccormick IG # 0.06 10e3/ul Critically high 0.00-0.03 [facility] Comment on above: Performed By: #### A CETON #### [facility] [address] [place] [address] Dr. Karmen Mccormick IG % 0.5 % Normal 0.0-0.5 [facility] Comment on above: Performed By: #### A CETON #### [facility] [address] [address] [address] Karmen Mccormick LYMPH # 1.5 103/ul Normal 1.2-3.8 [facility] Comment on above: Performed By: #### A CETON #### [facility] [address] [place] [address] Dr. Karmen Mccormick Lymphocytes/100 WBC (Bld) 12.0 % Critically low 20.5-60.0 [facility] Comment on above: Performed By: #### A CETON #### [facility] [address] [place] [address] Dr. Karmen Mccormick MANUAL DIFF REQ NO Normal [facility] Comment on above: Performed By: #### A CETON #### [facility] [address] [place] [address] Dr. Karmen Mccormick MCH (RBC) [Entitic mass] 29.6 pg Normal 26.7-34.0 [facility] Comment on above: Performed By: #### A CETON #### [facility] [address] [address] [address] Karmen Mccormick MCHC (RBC) [Mass/Vol] 32.4 g/dL Normal 29.9-35.2 [facility] Comment on above: Performed By: #### A CETON #### [facility] [address] [address] [address] Karmen Mccormick MCV (RBC) [Entitic vol] 91.6 fL Normal 81.0-99.0 [facility] Comment on above: Performed By: #### A CETON #### [facility] [address] [place] [address] Dr. Karmen Mccormick MONO # 0.7 103/ul Normal 0.3-0.8 [facility] Comment on above: Performed By: #### A CETON #### [facility] [address] [place] [address] Dr. Karmen Mccormick Monocytes/100 WBC (Bld) 5.1 % Normal 1.7-12.0 [facility] Comment on above: Performed By: #### A CETON #### [facility] [address] [place] [address] Dr. Karmen Mccormick NEUT # 10.3 103/ul Critically high 1.4-6.[address] [facility] Comment on above: Performed By: #### A CETON #### [facility] [address] [place] [address] Dr. Karmen Mccormick Neutrophils/100 WBC (Bld) 80.3 % Critically high 43.0-75.0 [facility] Comment on above: Performed By: #### A CETON #### [facility] [address] [address] [address] Karmen Mccormick Platelet mean volume (Bld) [Entitic vol] 10.0 fL Normal 9.5-13.5 [facility] Comment on above: Performed By: #### A CETON #### [facility] [address] [place] [address] Dr. Karmen Mccormick PLT 280 103/ul Normal 150-450 [facility] Comment on above: Performed By: #### A CETON #### [facility] [address] [place], [place] [address] Dr. Karmen Mccormick RBC 4.15 106/ul Critically low 4.20-5.40 [facility] Comment on above: Performed By: #### A CETON #### [facility] [address] [place], [place] [address] Dr. Karmen Mccormick WBC 12.8 103/ul Critically high 4.0-11.[address] [facility] Comment on above: Performed By: #### A CETON #### [facility] [address] [place], [place] [address] CSPINE WO CONon [...] TEJAS CHRISTOPHER Date: 2022-05-07 14:44 Normal [facility] CT HEAD WO CONon 05-07-2022 CT HEAD [...] TEJAS CHRISTOPHER Date: 2022-05-07 14:35 Normal [facility] Covid-19 PCR (CVDTBH)on 04-14 SARS-CoV-2 (COVID-19) RNA IRVIN+probe Ql (Unsp spec) Not detected Normal NOT DETECTED [facility] Comment on above: Result Comment: When diagnostic [...] for this test is supported by the [place] of Health and Human Service's declaration that [...] used). Performed By: #### A CETON #### [facility] [address] [place] [address] Dr. Karmen Mccormick POINT OF CARE GLUCOSEon 04-14 Glucose [Mass/Vol] 167 mg/dL Critically high 74-106 [facility] Comment on above: Performed By: #### C VDTBH #### [facility] [address] [place] [address] Dr. Karmen Mccormick Glucose [Mass/Vol] 207 mg/dL Critically high 74-106 [facility] Comment on above: Performed By: #### B MP #### [facility] [address] [place] [address] Dr. Karmen Mccormick PROF CHEM 8 (BAS METB)on Anion gap [Moles/Vol] 12.7 mmol/L Normal [facility] Comment on above: Performed By: #### P OCGLUC #### [facility] [address] [place] [address] Dr. Karmen Mccormick Calcium [Mass/Vol] 8.9 mg/dL Normal 8.5-10.1 [facility] Comment on above: Performed By: #### P OCGLUC #### [facility] [address] [place] [address] Dr. Karmen Mccormick Chloride [Moles/Vol] 104 mmol/L Normal 98-107 [facility] Comment on above: Performed By: #### P OCGLUC #### [facility] [address] [place] [address] Dr. Karmen Mccormick CO2 [Moles/Vol] 26.5 mmol/L Normal 21.0-32.[address] [facility] Comment on above: Performed By: #### P OCGLUC #### [facility] [address] [place] [address] Dr. Karmen Mccormick Creatinine [Mass/Vol] 0.95 mg/dL Normal 0.55-1.02 [facility] Comment on above: Performed By: #### P OCGLUC #### [facility] [address] [place] [address] Dr. Karmen Mccormick EGFR-AF MARSHALLESE >60 Normal >=[address] [facility] Comment on above: Performed By: #### P OCGLUC #### [facility] [address] [place] [address] Dr. Karmen Mccormick EGFR-NON AF MARSHALLESE 58 mL/min/1.73m2 Critically low >=60 [facility] Comment on above: Performed By: #### P OCGLUC #### [facility] [address] [address] [address] Karmen Mccormick Glucose [Mass/Vol] 245 mg/dL Critically high 74-106 [facility] Comment on above: Performed By: #### P OCGLUC #### [facility] [address] [address] [address] Karmen Mccormick Potassium [Moles/Vol] 5.2 mmol/L Critically high 3.5-5.1 [facility] Comment on above: Performed By: #### P OCGLUC #### [facility] [address] [address] [address] Karmen Mccormick Sodium [Moles/Vol] 138 mmol/L Normal 136-145 [facility] Comment on above: Performed By: #### P OCGLUC #### [facility] [address] [address] [address] Karmen Mccormick Urea nitrogen [Mass/Vol] 24.0 mg/dL Critically high 7.0-18.0 [facility] Comment on above: Performed By: #### P OCGLUC #### [facility] [address] [address] [address] Karmen Mccormick Urea nitrogen/Creatinine [Mass ratio] 25.3 mg/mg Normal [facility] Comment on above: Performed By: #### P OCGLUC #### [facility] [address] [address] [address] Karmen Mccormick GLYCOHEMOGLOBIN A1Con 2021 ADA RECOMMENDATION SEE BELOW Normal [facility] Comment on above: Result Comment: ADA RECOMMENDED LIMIT 4.0 - 6.0 ADA THERAPEUTIC TARGET < 7.0 ACTION SUGGESTED > 7.0 Performed By: #### P OCGLUC #### [facility] [address] [address] [address] Karmen Mccormick Glucose [Mass/Vol] 315 mg/dL Normal [facility] Comment on above: Performed By: #### P OCGLUC #### [facility] [address] [address] [address] Karmen Mccormick HbA1c (Bld) [Mass fraction] 12.6 % Critically high 4.5-6.2 [facility] Comment on above: Performed By: #### P OCGLUC #### [facility] [address] [address] [address] Karmen Mccormick PROF CHEM 8 (BAS METB)on Anion gap [Moles/Vol] 14.9 mmol/L Normal [facility] Comment on above: Performed By: #### P OCGLUC #### [facility] [address] [address] [address] Karmen Mccormick Calcium [Mass/Vol] 8.7 mg/dL Normal 8.5-10.1 [facility] Comment on above: Performed By: #### P OCGLUC #### [facility] [address] [address] [address] Karmen Mccormick Chloride [Moles/Vol] 102 mmol/L Normal 98-107 [facility] Comment on above: Performed By: #### P OCGLUC #### [facility] [address] [address] [address] Karmen Mccormick CO2 [Moles/Vol] 22.7 mmol/L Normal 21.0-32.[address] [facility] Comment on above: Performed By: #### P OCGLUC #### [facility] [address] [address] [address] Karmen Mccormick Creatinine [Mass/Vol] 0.73 mg/dL Normal 0.55-1.02 [facility] Comment on above: Performed By: #### P OCGLUC #### [facility] [address] [address] [address] Karmen Mccormick EGFR-AF MARSHALLESE >60 Normal >=[address] [facility] Comment on above: Performed By: #### P OCGLUC #### [facility] [address] [address] [address] Karmen Mccormick EGFR-NON AF MARSHALLESE >60 Normal >=60 [facility] Comment on above: Performed By: #### P OCGLUC #### [facility] [address] [address] [address] Karmen Mccormick Glucose [Mass/Vol] 290 mg/dL Critically high 74-106 [facility] Comment on above: Performed By: #### P OCGLUC #### [facility] [address] [address] [address] Karmen Mccormick Potassium [Moles/Vol] 4.6 mmol/L Normal 3.5-5.1 [facility] Comment on above: Performed By: #### P OCGLUC #### [facility] [address] [address] [address] Karmen Mccormick Sodium [Moles/Vol] 135 mmol/L Critically low 136-145 [facility] Comment on above: Performed By: #### P OCGLUC #### [facility] [address] [place] [address] Dr. Karmen Mccormick Urea nitrogen [Mass/Vol] 17.0 mg/dL Normal 7.0-18.0 [facility] Comment on above: Performed By: #### P OCGLUC #### [facility] [address] [address] [address] Karmen Mccormick Urea nitrogen/Creatinine [Mass ratio] 23.3 mg/mg Normal [facility] Comment on above: Performed By: #### P OCGLUC #### [facility] [address] [place] [address] Dr. Karmen Mccormick CBC AUTO DIFFon 04-09-2022 BASO # 0.1 103/ul Normal 0.0-0.1 [facility] Comment on above: Performed By: #### P OCGLUC #### [facility] [address] [address] [address] Karmen Mccormick Basophils/100 WBC (Bld) 0.8 % Normal 0.2-2.0 [facility] Comment on above: Performed By: #### P OCGLUC #### [facility] [address] [address] [address] Karmen Mccormick EO # 0.2 103/ul Normal 0.0-0.7 [facility] Comment on above: Performed By: #### P OCGLUC #### [facility] [address] [address] [address] Karmen Mccormick Eosinophils/100 WBC (Bld) 2.5 % Normal 0.9-7.0 [facility] Comment on above: Performed By: #### P OCGLUC #### [facility] [address] [place] [address] Dr. Karmen Mccormick Erythrocyte distribution width (RBC) [Ratio] 13.2 % Normal 11.0-15.0 [facility] Comment on above: Performed By: #### P OCGLUC #### [facility] [address] [place] [address] Dr. Karmen Mccormick Hematocrit (Bld) [Volume fraction] 33.9 % Critically low 36.0-48.0 [facility] Comment on above: Performed By: #### P OCGLUC #### [facility] [address] [place] [address] Dr. Karmen Mccormick Hemoglobin (Bld) [Mass/Vol] 11.5 g/dL Critically low 12.0-16.0 [facility] Comment on above: Performed By: #### P OCGLUC #### [facility] [address] [place] [address] Dr. Karmen Mccormick IG # 0.04 10e3/ul Critically high 0.00-0.03 [facility] Comment on above: Performed By: #### P OCGLUC #### [facility] [address] [place] [address] Dr. Karmen Mccormick IG % 0.5 % Normal 0.0-0.5 [facility] Comment on above: Performed By: #### P OCGLUC #### [facility] [address] [place] [address] Dr. Karmen Mccormick LYMPH # 1.8 103/ul Normal 1.2-3.8 [facility] Comment on above: Performed By: #### P OCGLUC #### [facility] [address] [place] [address] Dr. Karmen Mccormick Lymphocytes/100 WBC (Bld) 20.2 % Critically low 20.5-60.0 [facility] Comment on above: Performed By: #### P OCGLUC #### [facility] [address] [address] [address] Karmen Mccormick MANUAL DIFF REQ NO Normal [facility] Comment on above: Performed By: #### P OCGLUC #### [facility] [address] [address] [address] Karmen Mccormick MCH (RBC) [Entitic mass] 29.3 pg Normal 26.7-34.0 [facility] Comment on above: Performed By: #### P OCGLUC #### [facility] [address] [address] [address] Karmen Mccormick MCHC (RBC) [Mass/Vol] 33.9 g/dL Normal 29.9-35.2 [facility] Comment on above: Performed By: #### P OCGLUC #### [facility] [address] [place] [address] Dr. Karmen Mccormick MCV (RBC) [Entitic vol] 86.3 fL Normal 81.0-99.0 [facility] Comment on above: Performed By: #### P OCGLUC #### [facility] [address] [address] [address] Karmen Mccormick MONO # 0.5 103/ul Normal 0.3-0.8 [facility] Comment on above: Performed By: #### P OCGLUC #### [facility] [address] [place] [address] Dr. Karmen Mccormick Monocytes/100 WBC (Bld) 6.1 % Normal 1.7-12.0 [facility] Comment on above: Performed By: #### P OCGLUC #### [facility] [address] [place] [address] Dr. Karmen Mccormick NEUT # 6.1 103/ul Normal 1.4-6.5 [facility] Comment on above: Performed By: #### P OCGLUC #### [facility] [address] [address] [address] Karmen Mccormick Neutrophils/100 WBC (Bld) 69.9 % Normal 43.0-75.0 [facility] Comment on above: Performed By: #### P OCGLUC #### [facility] [address] [address] [address] Karmen Mccormick Platelet mean volume (Bld) [Entitic vol] 9.5 fL Normal 9.5-13.5 [facility] Comment on above: Performed By: #### P OCGLUC #### [facility] [address] [address] [address] Karmen Mccormick PLT 335 103/ul Normal 150-450 [facility] Comment on above: Performed By: #### P OCGLUC #### [facility] [address] [address] [address] Karmen Mccormick RBC 3.93 106/ul Critically low 4.20-5.40 [facility] Comment on above: Performed By: #### P OCGLUC #### [facility] [address] [address] [address] Karmen Mccormick WBC 8.8 103/ul Normal 4.0-11.0 [facility] Comment on above: Performed By: #### P OCGLUC #### [facility] [address] [address] [address] Karmen Mccormick CRPon 04-09-2022 CRP [Mass/Vol] mg/L Normal <=1.0 [facility] Comment on above: Performed By: #### P OCGLUC #### [facility] [address] [address] [address] Karmen Mccormick PROF 14(COMP METB)on 022 Albumin [Mass/Vol] 3.1 g/dL Critically low 3.4-5.0 [facility] Comment on above: Performed By: #### P OCGLUC #### [facility] [address] [address] [address] Karmen Mccormick Albumin/Globulin [Mass ratio] 0.9 {ratio} Normal [facility] Comment on above: Performed By: #### P OCGLUC #### [facility] [address] [address] [address] Karmen Mccormick ALP [Catalytic activity/Vol] 86 U/L Normal 46-116 [facility] Comment on above: Performed By: #### P OCGLUC #### [facility] [address] [address] [address] Karmen Mccormick ALT [Catalytic activity/Vol] 23 U/L Normal 14-59 [facility] Comment on above: Performed By: #### P OCGLUC #### [facility] [address] [address] [address] Karmen Mccormick Anion gap [Moles/Vol] 14.5 mmol/L Normal [facility] Comment on above: Performed By: #### P OCGLUC #### [facility] [address] [address] [address] Karmen Mccormick AST [Catalytic activity/Vol] 11 U/L Critically low 15-37 [facility] Comment on above: Performed By: #### P OCGLUC #### [facility] [address] [address] [address] Karmen Mccormick Bilirubin [Mass/Vol] 0.3 mg/dL Normal 0.2-1.0 [facility] Comment on above: Performed By: #### P OCGLUC #### [facility] [address] [address] [address] Karmen Mccormick Calcium [Mass/Vol] 8.8 mg/dL Normal 8.5-10.1 [facility] Comment on above: Performed By: #### P OCGLUC #### [facility] [address] [address] [address] Karmen Mccormick Chloride [Moles/Vol] 96 mmol/L Critically low 98-107 [facility] Comment on above: Performed By: #### P OCGLUC #### [facility] [address] [address] [address] Karmen Mcocrmick CO2 [Moles/Vol] 24.5 mmol/L Normal 21.0-32.[address] [facility] Comment on above: Performed By: #### P OCGLUC #### [facility] [address] [address] [address] Karmen Mccormick Creatinine [Mass/Vol] 0.88 mg/dL Normal 0.55-1.02 [facility] Comment on above: Performed By: #### P OCGLUC #### [facility] [address] [address] [address] Karmen Mccormick EGFR-AF MARSHALLESE >60 Normal >=[address] [facility] Comment on above: Performed By: #### P OCGLUC #### [facility] [address] [address] [address] Karmen Mccormick EGFR-NON AF MARSHALLESE >60 Normal >=60 [facility] Comment on above: Performed By: #### P OCGLUC #### [facility] [address] [address] [address] Karmen Mccormick Globulin (S) [Mass/Vol] 3.6 g/dL Normal [facility] Comment on above: Performed By: #### P OCGLUC #### [facility] [address] [address] [address] Karmen Mccormick Glucose [Mass/Vol] 479 mg/dL Critically high 74-106 [facility] Comment on above: Performed By: #### P OCGLUC #### [facility] [address] [address] [address] Karmen Mccormick Potassium [Moles/Vol] 5.0 mmol/L Normal 3.5-5.1 [facility] Comment on above: Performed By: #### P OCGLUC #### [facility] [address] [address] [address] Karmen Mccormick Protein [Mass/Vol] 6.7 g/dL Normal 6.4-8.2 [facility] Comment on above: Performed By: #### P OCGLUC #### [facility] [address] [address] [address] Karmen Mccormick Sodium [Moles/Vol] 130 mmol/L Critically low 136-145 [facility] Comment on above: Performed By: #### P OCGLUC #### [facility] [address] [address] [address] Karmen Mccormick Urea nitrogen [Mass/Vol] 18.0 mg/dL Normal 7.0-18.0 [facility] Comment on above: Performed By: #### P OCGLUC #### [facility] [address] [address] [address] Karmen Mccormick Urea nitrogen/Creatinine [Mass ratio] 20.5 mg/mg Normal [facility] Comment on above: Performed By: #### P OCGLUC #### [facility] [address] [address] [address] Karmen Mccormick SED RATE WESTERGRENon 2021 SED RATE 33 mm/hr Critically high <=30 [facility] Comment on above: Performed By: #### P OCGLUC #### [facility] [address] [address] [address] Karmen Mccormick CBC AUTO DIFFon 04-02-2022 BASO # 0.0 103/ul Normal 0.0-0.1 [facility] Comment on above: Performed By: #### P OCGLUC #### [facility] [address] [place] [address] Dr. Karmen Mccormick Basophils/100 WBC (Bld) 0.5 % Normal 0.2-2.0 [facility] Comment on above: Performed By: #### P OCGLUC #### [facility] [address] [address] [address] Karmen Mccormick EO # 0.4 103/ul Normal 0.0-0.7 [facility] Comment on above: Performed By: #### P OCGLUC #### [facility] [address] [place] [address] Dr. Karmen Mccormick Eosinophils/100 WBC (Bld) 4.4 % Normal 0.9-7.0 [facility] Comment on above: Performed By: #### P OCGLUC #### [facility] [address] [place] [address] Dr. Karmen Mccormick Erythrocyte distribution width (RBC) [Ratio] 13.2 % Normal 11.0-15.0 [facility] Comment on above: Performed By: #### P OCGLUC #### [facility] [address] [place] [address] Dr. Karmen Mccormick Hematocrit (Bld) [Volume fraction] 32.4 % Critically low 36.0-48.0 [facility] Comment on above: Performed By: #### P OCGLUC #### [facility] [address] [address] [address] Karmen Mccormick Hemoglobin (Bld) [Mass/Vol] 10.3 g/dL Critically low 12.0-16.0 [facility] Comment on above: Performed By: #### P OCGLUC #### [facility] [address] [address] [address] Karmen Mccormick IG # 0.04 10e3/ul Critically high 0.00-0.03 [facility] Comment on above: Performed By: #### P OCGLUC #### [facility] [address] [address] [address] Karmen Mccormick IG % 0.5 % Normal 0.0-0.5 [facility] Comment on above: Performed By: #### P OCGLUC #### [facility] [address] [address] [address] Karmen Mccormick LYMPH # 1.9 103/ul Normal 1.2-3.8 [facility] Comment on above: Performed By: #### P OCGLUC #### [facility] [address] [address] [address] Karmen Mccormick Lymphocytes/100 WBC (Bld) 23.2 % Normal 20.5-60.0 [facility] Comment on above: Performed By: #### P OCGLUC #### [facility] [address] [address] [address] Karmen Mccormick MANUAL DIFF REQ NO Normal [facility] Comment on above: Performed By: #### P OCGLUC #### [facility] [address] [address] [address] Karmen Mccormick MCH (RBC) [Entitic mass] 29.0 pg Normal 26.7-34.0 [facility] Comment on above: Performed By: #### P OCGLUC #### [facility] [address] [address] [address] Karmen Mccormick MCHC (RBC) [Mass/Vol] 31.8 g/dL Normal 29.9-35.2 [facility] Comment on above: Performed By: #### P OCGLUC #### [facility] [address] [address] [address] Karmen Mccormick MCV (RBC) [Entitic vol] 91.3 fL Normal 81.0-99.0 [facility] Comment on above: Performed By: #### P OCGLUC #### [facility] [address] [address] [address] Karmen Mccormick MONO # 0.6 103/ul Normal 0.3-0.8 [facility] [facility] Comment on above: Performed By: #### P OCGLUC #### [facility] [address] [address] [address] Karmen Mccormick Monocytes/100 WBC (Bld) 7.2 % Normal 1.7-12.0 [facility] Comment on above: Performed By: #### P OCGLUC #### [facility] [address] [place] [address] Dr. Karmen Mccormick NEUT # 5.2 103/ul Normal 1.4-6.5 [facility] Comment on above: Performed By: #### P OCGLUC #### [facility] [address] [place] [address] Dr. Karmen Mccormick Neutrophils/100 WBC (Bld) 64.2 % Normal 43.0-75.0 [facility] Comment on above: Performed By: #### P OCGLUC #### [facility] [address] [address] [address] Karmen Mccormick Platelet mean volume (Bld) [Entitic vol] 9.3 fL Critically low 9.5-13.5 [facility] Comment on above: Performed By: #### P OCGLUC #### [facility] [address] [address] [address] Karmen Mccormick PLT 236 103/ul Normal 150-450 [facility] Comment on above: Performed By: #### P OCGLUC #### [facility] [address] [place] [address] Dr. Karmen Mccormick RBC 3.55 106/ul Critically low 4.20-5.40 [facility] Comment on above: Performed By: #### P OCGLUC #### [facility] [address] [address] [address] Karmen Mccormick WBC 8.2 103/ul Normal 4.0-11.0 [facility] Comment on above: Performed By: #### P OCGLUC #### [facility] [address] [address] [address] Karmen Mccormick PROF 14(COMP METB)on 022 Albumin [Mass/Vol] 2.2 g/dL Critically low 3.4-5.0 [facility] Comment on above: Performed By: #### P OCGLUC #### [facility] [address] [address] [address] Karmen Mccormick Albumin/Globulin [Mass ratio] 0.7 {ratio} Normal [facility] Comment on above: Performed By: #### P OCGLUC #### [facility] [address] [address] [address] Karmen Mccormick ALP [Catalytic activity/Vol] 71 U/L Normal 46-116 [facility] Comment on above: Performed By: #### P OCGLUC #### [facility] [address] [address] [address] Karmen Mccormick ALT [Catalytic activity/Vol] 12 U/L Critically low 14-59 [facility] Comment on above: Performed By: #### P OCGLUC #### [facility] [address] [address] [address] Karmen Mccormick Anion gap [Moles/Vol] 8.7 mmol/L Normal [facility] Comment on above: Performed By: #### P OCGLUC #### [facility] [address] [address] [address] Karmen Mccormick AST [Catalytic activity/Vol] 15 U/L Normal 15-37 [facility] Comment on above: Performed By: #### P OCGLUC #### [facility] [address] [address] [address] Karmen Mccormick Bilirubin [Mass/Vol] 0.2 mg/dL Normal 0.2-1.0 [facility] Comment on above: Performed By: #### P OCGLUC #### [facility] [address] [address] [address] Karmen Mccormick Calcium [Mass/Vol] 8.2 mg/dL Critically low 8.5-10.1 [facility] Comment on above: Performed By: #### P OCGLUC #### [facility] [address] [address] [address] Karmen Mccormick Chloride [Moles/Vol] 107 mmol/L Normal 98-107 [facility] Comment on above: Performed By: #### P OCGLUC #### [facility] [address] [address] [address] Karmen Mccormick CO2 [Moles/Vol] 24.6 mmol/L Normal 21.0-32.[address] [facility] Comment on above: Performed By: #### P OCGLUC #### [facility] [address] [address] [address] Karmen Mccormick Creatinine [Mass/Vol] 0.62 mg/dL Normal 0.55-1.02 [facility] Comment on above: Performed By: #### P OCGLUC #### [facility] [address] [address] [address] Karmen Mccormick EGFR-AF MARSHALLESE >60 Normal >=[address] [facility] Comment on above: Performed By: #### P OCGLUC #### [facility] [address] [address] [address] Karmen Mccormick EGFR-NON AF MARSHALLESE >60 Normal >=60 [facility] Comment on above: Performed By: #### P OCGLUC #### [facility] [address] [address] [address] Karmen Mccormick Globulin (S) [Mass/Vol] 3.0 g/dL Normal [facility] Comment on above: Performed By: #### P OCGLUC #### [facility] [address] [address] [address] Karmen Mccormick Glucose [Mass/Vol] 263 mg/dL Critically high 74-106 [facility] Comment on above: Performed By: #### P OCGLUC #### [facility] [address] [address] [address] Kamren Mccormick Potassium [Moles/Vol] 3.3 mmol/L Critically low 3.5-5.1 [facility] Comment on above: Performed By: #### P OCGLUC #### [facility] [address] [place] [address] Dr. Karmen Mccormick Protein [Mass/Vol] 5.2 g/dL Critically low 6.4-8.2 [facility] Comment on above: Performed By: #### P OCGLUC #### [facility] [address] [address] [address] Karmen Mccormick Sodium [Moles/Vol] 137 mmol/L Normal 136-145 [facility] Comment on above: Performed By: #### P OCGLUC #### [facility] [address] [place] [address] Dr. Karmen Mccormick Urea nitrogen [Mass/Vol] 10.0 mg/dL Normal 7.0-18.0 [facility] Comment on above: Performed By: #### P OCGLUC #### [facility] [address] [place] [address] Dr. Karmen Mccormick Urea nitrogen/Creatinine [Mass ratio] 16.1 mg/mg Normal [facility] Comment on above: Performed By: #### P OCGLUC #### [facility] [address] [place] [address] Dr. Karmen Mccormick CBC AUTO DIFFon 04-01-2022 BASO # 0.0 103/ul Normal 0.0-0.1 [facility] Comment on above: Performed By: #### B MP #### [facility] [address] [place] [address] Dr. Karmen Mccormick Basophils/100 WBC (Bld) 0.4 % Normal 0.2-2.0 [facility] Comment on above: Performed By: #### B MP #### [facility] [address] [place] [address] Dr. Karmen Mccormick EO # 0.3 103/ul Normal 0.0-0.7 [facility] Comment on above: Performed By: #### B MP #### [facility] [address] [place] [address] Dr. Karmen Mccormick Eosinophils/100 WBC (Bld) 3.9 % Normal 0.9-7.0 [facility] Comment on above: Performed By: #### B MP #### [facility] [address] [place] [address] Dr. Karmen Mccormick Erythrocyte distribution width (RBC) [Ratio] 13.4 % Normal 11.0-15.0 [facility] Comment on above: Performed By: #### B MP #### [facility] [address] [place] [address] Dr. Karmen Mccormick Hematocrit (Bld) [Volume fraction] 33.3 % Critically low 36.0-48.0 [facility] Comment on above: Performed By: #### B MP #### [facility] [address] [place] [address] Dr. Karmen Mccormick Hemoglobin (Bld) [Mass/Vol] 11.1 g/dL Critically low 12.0-16.0 [facility] Comment on above: Performed By: #### B MP #### [facility] [address] [place] [address] Dr. Karmen Mccormick IG # 0.04 10e3/ul Critically high 0.00-0.03 [facility] Comment on above: Performed By: #### B MP #### [facility] [address] [place] [address] Dr. Karmen Mccormick IG % 0.5 % Normal 0.0-0.5 [facility] Comment on above: Performed By: #### B MP #### [facility] [address] [place] [address] Dr. Karmen Mccormick LYMPH # 2.5 103/ul Normal 1.2-3.8 [facility] Comment on above: Performed By: #### B MP #### [facility] [address] [place] [address] Dr. Karmen Mccormick Lymphocytes/100 WBC (Bld) 33.2 % Normal 20.5-60.0 [facility] Comment on above: Performed By: #### B MP #### [facility] [address] [place] [address] Dr. Karmen Mccormick MANUAL DIFF REQ NO Normal [facility] Comment on above: Performed By: #### B MP #### [facility] [address] [place] [address] Dr. Karmen Mccormick MCH (RBC) [Entitic mass] 29.4 pg Normal 26.7-34.0 [facility] Comment on above: Performed By: #### B MP #### [facility] [address] [place] [address] Dr. Karmen Mccormick MCHC (RBC) [Mass/Vol] 33.3 g/dL Normal 29.9-35.2 [facility] Comment on above: Performed By: #### B MP #### [facility] [address] [place] [address] Dr. Karmen Mccormick MCV (RBC) [Entitic vol] 88.3 fL Normal 81.0-99.0 [facility] Comment on above: Performed By: #### B MP #### [facility] [address] [place] [address] Dr. Karmen Mccormick MONO # 0.6 103/ul Normal 0.3-0.8 [facility] Comment on above: Performed By: #### B MP #### [facility] [address] [place] [address] Dr. Karmen Mccormick Monocytes/100 WBC (Bld) 8.3 % Normal 1.7-12.0 [facility] Comment on above: Performed By: #### B MP #### [facility] [address] [place] [address] Dr. Karmen Mccormick NEUT # 4.0 103/ul Normal 1.4-6.5 [facility] Comment on above: Performed By: #### B MP #### [facility] [address] [place] [address] Dr. Karmen Mccormick Neutrophils/100 WBC (Bld) 53.7 % Normal 43.0-75.0 [facility] Comment on above: Performed By: #### B MP #### [facility] [address] [address] [address] Karmen Mccormick Platelet mean volume (Bld) [Entitic vol] 10.1 fL Normal 9.5-13.5 [facility] Comment on above: Performed By: #### B MP #### [facility] [address] [address] [address] Karmen Mccormick PLT 222 103/ul Normal 150-450 [facility] Comment on above: Performed By: #### B MP #### [facility] [address] [place] [address] Dr. Karmen Mccormick RBC 3.77 106/ul Critically low 4.20-5.40 [facility] Comment on above: Performed By: #### B MP #### [facility] [address] [place] [address] Dr. Karemn Mccormick WBC 7.5 103/ul Normal 4.0-11.0 [facility] Comment on above: Performed By: #### B MP #### [facility] [address] [place] [address] Dr. Karmen Mccormick H PYLORI ANTIBODY IGGon 03-14 H. PYLORI IGG ABS 0.22 Index Value Normal 0.00-0.79 [facility] Comment on above: Result Comment: Nega tive <0.80 Equivocal 0.80 - 0.89 Positive >0.89 Performed By: #### P OCGLUC #### [facility] [address] [place] [address] Dr. Karmen Mccormick POINT OF CARE GLUCOSEon 03-14 0 Glucose [Mass/Vol] 187 mg/dL Critically high 74-106 [facility] Comment on above: Performed By: #### P OCGLUC #### [facility] [address] [place] [address] Dr. Karmen Mccormick Glucose [Mass/Vol] 200 mg/dL Critically high 74-106 [facility] Comment on above: Performed By: #### P OCGLUC #### [facility] [address] [place] [address] Dr. Karmen Mccormick Glucose [Mass/Vol] 173 mg/dL Critically high 74-106 [facility] Comment on above: Performed By: #### P OCGLUC #### [facility] [address] [address] [address] Karmen Mccormick PROF 14(COMP METB)on 022 Albumin [Mass/Vol] 2.1 g/dL Critically low 3.4-5.0 [facility] Comment on above: Performed By: #### P OCGLUC #### [facility] [address] [address] [address] Karmen Mccormick Albumin/Globulin [Mass ratio] 0.7 {ratio} Normal [facility] Comment on above: Performed By: #### P OCGLUC #### [facility] [address] [place] [address] Dr. Karmen Mccormick ALP [Catalytic activity/Vol] 70 U/L Normal 46-116 [facility] Comment on above: Performed By: #### P OCGLUC #### [facility] [address] [place] [address] Dr. Karmen Mccormick ALT [Catalytic activity/Vol] 14 U/L Normal 14-59 [facility] Comment on above: Performed By: #### P OCGLUC #### [facility] [address] [place] [address] Dr. Karmen Mccormick Anion gap [Moles/Vol] 12.9 mmol/L Normal [facility] Comment on above: Performed By: #### P OCGLUC #### [facility] [address] [place] [address] Dr. Karmen Mccormick AST [Catalytic activity/Vol] 23 U/L Normal 15-37 [facility] Comment on above: Performed By: #### P OCGLUC #### [facility] [address] [place] [address] Dr. Karmen Mccormick Bilirubin [Mass/Vol] 0.4 mg/dL Normal 0.2-1.0 [facility] Comment on above: Performed By: #### P OCGLUC #### [facility] [address] [place] [address] Dr. Karmen Mccormick Calcium [Mass/Vol] 8.1 mg/dL Critically low 8.5-10.1 [facility] Comment on above: Performed By: #### P OCGLUC #### [facility] [address] [address] [address] Karmen Mccormick Chloride [Moles/Vol] 107 mmol/L Normal 98-107 [facility] Comment on above: Performed By: #### P OCGLUC #### [facility] [address] [address] [address] Karmen Mccormick CO2 [Moles/Vol] 20.8 mmol/L Critically low 21.0-32.0 [facility] Comment on above: Performed By: #### P OCGLUC #### [facility] [address] [place] [address] Dr. Karmen Mccormick Creatinine [Mass/Vol] 0.79 mg/dL Normal 0.55-1.02 [facility] Comment on above: Performed By: #### P OCGLUC #### [facility] [address] [place] [address] Dr. Karmen Mccormick EGFR-AF MARSHALLESE >60 Normal >=[address] [facility] Comment on above: Performed By: #### P OCGLUC #### [facility] [address] [place] [address] Dr. Karmen Mccormick EGFR-NON AF MARSHALLESE >60 Normal >=60 [facility] Comment on above: Performed By: #### P OCGLUC #### [facility] [address] [address] [address] Karmen Mccormick Globulin (S) [Mass/Vol] 3.1 g/dL Normal [facility] Comment on above: Performed By: #### P OCGLUC #### [facility] [address] [address] [address] Karmen Mccormick Glucose [Mass/Vol] 226 mg/dL Critically high 74-106 [facility] Comment on above: Performed By: #### P OCGLUC #### [facility] [address] [place] [address] Dr. Karmen Mccormick Potassium [Moles/Vol] 3.7 mmol/L Normal 3.5-5.1 [facility] Comment on above: Performed By: #### P OCGLUC #### [facility] [address] [address] [address] Karmen Mccormick Protein [Mass/Vol] 5.2 g/dL Critically low 6.4-8.2 [facility] Comment on above: Performed By: #### P OCGLUC #### [facility] [address] [address] [address] Karmen Mccormick Sodium [Moles/Vol] 137 mmol/L Normal 136-145 [facility] Comment on above: Performed By: #### P OCGLUC #### [facility] [address] [address] [address] Karmen Mccormick Urea nitrogen [Mass/Vol] 9.0 mg/dL Normal 7.0-18.0 [facility] Comment on above: Performed By: #### P OCGLUC #### [facility] [address] [address] [address] Karmen Mccormick Urea nitrogen/Creatinine [Mass ratio] 11.4 mg/mg Normal [facility] Comment on above: Performed By: #### P OCGLUC #### [facility] [address] [place] [address] Dr. Karmen Mccormick WOUND CULTUREon 04-01-2022 Antimicrobial Susceptibility Comment Normal [facility] Comment on above: Result Comment: S = Susceptible; I = Intermediate; R = Resistant P = Positive; N = Negative MICS are expressed in micrograms per mL Antibiotic RSLT#1 RSLT#2 RSLT#3 RSLT#4 Ciprofloxacin R Clindamycin S Erythromycin R Gentamicin S Levofloxacin I Linezolid S Oxacillin R Penicillin R Rifampin S Tetracycline S Trimethoprim/Sulfa S Vancomycin S Performed By: #### C BC #### [facility] [address] [place] [address] Dr. Karmen Mccormick Bacteria identified Aer cx Nom (Unsp spec) Final report Abnormal [facility] Comment on above: Performed By: #### C BC #### [facility] [address] [address] [address] Karmen Mccormick Result 1 Comment Abnormal [facility] Comment on above: Result Comment: Meth icillin - resistant Staphylococcus aureus Based on resistance to oxacillin this isolate would be resistant to all currently available beta-lactam antimicrobial agents, with the exception of the newer cephalosporins with anti-MRSA activity, such as Ceftaroline Heavy growth Performed By: #### C BC #### [facility] [address] [place] [address] Dr. Karmen Mccormick Result 2 Mixed skin alexis Normal [facility] Comment on above: Result Comment: Elías y growth Performed By: #### C BC #### [facility] [address] [place] [address] Dr. Karmen Mccormick CBC AUTO DIFFon 03-31-2022 BASO # 0.0 103/ul Normal 0.0-0.1 [facility] Comment on above: Performed By: #### P OCGLUC #### [facility] [address] [place] [address] Dr. Karmen Mccormick Basophils/100 WBC (Bld) 0.4 % Normal 0.2-2.0 [facility] Comment on above: Performed By: #### P OCGLUC #### [facility] [address] [place] [address] Dr. Karmen Mccormick EO # 0.2 103/ul Normal 0.0-0.7 [facility] Comment on above: Performed By: #### P OCGLUC #### [facility] [address] [place] [address] Dr. Karmen Mccormick Eosinophils/100 WBC (Bld) 2.4 % Normal 0.9-7.0 [facility] Comment on above: Performed By: #### P OCGLUC #### [facility] [address] [place] [address] Dr. Karmen Mccormick Erythrocyte distribution width (RBC) [Ratio] 13.2 % Normal 11.0-15.0 [facility] Comment on above: Performed By: #### P OCGLUC #### [facility] [address] [place] [address] Dr. Karmen Mccormick Hematocrit (Bld) [Volume fraction] 39.1 % Normal 36.0-48.0 [facility] Comment on above: Performed By: #### P OCGLUC #### [facility] [address] [address] [address] Karmen Mccormick Hemoglobin (Bld) [Mass/Vol] 12.7 g/dL Normal 12.0-16.0 [facility] Comment on above: Performed By: #### P OCGLUC #### [facility] [address] [address] [address] Karmen Mccormick IG # 0.04 10e3/ul Critically high 0.00-0.03 [facility] Comment on above: Performed By: #### P OCGLUC #### [facility] [address] [address] [address] aKrmen Mccormick IG % 0.4 % Normal 0.0-0.5 [facility] Comment on above: Performed By: #### P OCGLUC #### [facility] [address] [place] [address] Dr. Karmen Mccormick LYMPH # 3.1 103/ul Normal 1.2-3.8 [facility] Comment on above: Performed By: #### P OCGLUC #### [facility] [address] [place] [address] Dr. Karmen Mccormick Lymphocytes/100 WBC (Bld) 32.3 % Normal 20.5-60.0 [facility] Comment on above: Performed By: #### P OCGLUC #### [facility] [address] [place] [address] Dr. Karmen Mccormick MANUAL DIFF REQ NO Normal [facility] Comment on above: Performed By: #### P OCGLUC #### [facility] [address] [address] [address] Karmen Mccormick MCH (RBC) [Entitic mass] 29.3 pg Normal 26.7-34.0 [facility] Comment on above: Performed By: #### P OCGLUC #### [facility] [address] [address] [address] Karmen Mccormick MCHC (RBC) [Mass/Vol] 32.5 g/dL Normal 29.9-35.2 [facility] Comment on above: Performed By: #### P OCGLUC #### [facility] [address] [address] [address] Karmen Mccormick MCV (RBC) [Entitic vol] 90.3 fL Normal 81.0-99.0 [facility] Comment on above: Performed By: #### P OCGLUC #### [facility] [address] [place] [address] Dr. Karmen Mccormick MONO # 0.9 103/ul Critically high 0.3-0.8 [facility] Comment on above: Performed By: #### P OCGLUC #### [facility] [address] [place] [address] Dr. Karmen Mccormick Monocytes/100 WBC (Bld) 8.9 % Normal 1.7-12.0 [facility] Comment on above: Performed By: #### P OCGLUC #### [facility] [address] [place] [address] Dr. Karmen Mccormick NEUT # 5.3 103/ul Normal 1.4-6.5 [facility] Comment on above: Performed By: #### P OCGLUC #### [facility] [address] [place] [address] Dr. Karmen Mccormick Neutrophils/100 WBC (Bld) 55.6 % Normal 43.0-75.0 [facility] Comment on above: Performed By: #### P OCGLUC #### [facility] [address] [place] [address] Dr. Karmen Mccormick Platelet mean volume (Bld) [Entitic vol] 10.0 fL Normal 9.5-13.5 [facility] Comment on above: Performed By: #### P OCGLUC #### [facility] [address] [place] [address] Dr. Karmen Mccormick PLT 278 103/ul Normal 150-450 [facility] Comment on above: Performed By: #### P OCGLUC #### [facility] [address] [place] [address] Dr. Karmen Mccormick RBC 4.33 106/ul Normal 4.20-5.40 [facility] Comment on above: Performed By: #### P OCGLUC #### [facility] [address] [address] [address] Karmen Mccormick WBC 9.5 103/ul Normal 4.0-11.0 [facility] Comment on above: Performed By: #### P OCGLUC #### [facility] [address] [address] [address] Karmen Mccormick POINT OF CARE GLUCOSEon 03-13 Glucose [Mass/Vol] 130 mg/dL Critically high -[address] [place] [address] Comment on above: Performed By: #### P OCGLUC #### [facility] [address] [address] [address] Karmen Mccormick Glucose [Mass/Vol] 153 mg/dL Critically high [address] [place] [address] Comment on above: Performed By: #### A CETON #### [facility] [address] [address] [address] Karmen Mccormick Glucose [Mass/Vol] 195 mg/dL Critically high [address] [place] [address] Comment on above: Performed By: #### B MP #### [facility] [address] [address] [address] Karmen Mccormick Glucose [Mass/Vol] 163 mg/dL Critically high [address] [place] [address] Comment on above: Performed By: #### A CETON #### [facility] [address] [address] [address] Karmen Mccormick Glucose [Mass/Vol] 88 mg/dL Normal 74-106 [facility] Comment on above: Performed By: #### B MP #### [facility] [address] [address] [address] Karmen Mccormick Glucose [Mass/Vol] 145 mg/dL Critically high [facility]106 [facility] Comment on above: Performed By: #### A CETON #### [facility] [address] [address] [address] Karmen Mccormick Glucose [Mass/Vol] 117 mg/dL Critically high [address] [place] [address] Comment on above: Performed By: #### C BC #### [facility] [address] [address] [address] Karmen Mccormick Glucose [Mass/Vol] 146 mg/dL Critically high 74-106 [facility] Comment on above: Performed By: #### C VDTBH #### [facility] [address] [place] [address] Dr. Karmen Mccormick PROF 14(COMP METB)on 022 Albumin [Mass/Vol] 2.4 g/dL Critically low 3.4-5.0 [facility] Comment on above: Performed By: #### P OCGLUC #### [facility] [address] [address] [address] Karmen Mccormick Albumin/Globulin [Mass ratio] 0.7 {ratio} Normal [facility] Comment on above: Performed By: #### P OCGLUC #### [facility] [address] [place] [address] Dr. Karmen Mccormick ALP [Catalytic activity/Vol] 83 U/L Normal 46-116 [facility] Comment on above: Performed By: #### P OCGLUC #### [facility] [address] [place] [address] Dr. Karmen Mccormick ALT [Catalytic activity/Vol] 14 U/L Normal 14-59 [facility] Comment on above: Performed By: #### P OCGLUC #### [facility] [address] [place] [address] Dr. Karmen Mccormick Anion gap [Moles/Vol] 12.2 mmol/L Normal [facility] Comment on above: Performed By: #### P OCGLUC #### [facility] [address] [place] [address] Dr. Karmen Mccormick AST [Catalytic activity/Vol] 20 U/L Normal 15-37 [facility] Comment on above: Performed By: #### P OCGLUC #### [facility] [address] [place] [address] Dr. Karmen Mccormick Bilirubin [Mass/Vol] 0.4 mg/dL Normal 0.2-1.0 [facility] Comment on above: Performed By: #### P OCGLUC #### [facility] [address] [address] [address] Karmen Mccormick Calcium [Mass/Vol] 8.4 mg/dL Critically low 8.5-10.1 [facility] Comment on above: Performed By: #### P OCGLUC #### [facility] [address] [place] [address] Dr. Karmen Mccormick Chloride [Moles/Vol] 110 mmol/L Critically high 98-107 [facility] Comment on above: Performed By: #### P OCGLUC #### [facility] [address] [place] [address] Dr. Karmen Mccormick CO2 [Moles/Vol] 21.5 mmol/L Normal 21.0-32.[address] [facility] Comment on above: Performed By: #### P OCGLUC #### [facility] [address] [place] [address] Dr. Karmen Mccormick Creatinine [Mass/Vol] 0.63 mg/dL Normal 0.55-1.02 [facility] Comment on above: Performed By: #### P OCGLUC #### [facility] [address] [place] [address] Dr. Karmen Mccormick EGFR-AF MARSHALLESE >60 Normal >=[address] [facility] Comment on above: Performed By: #### P OCGLUC #### [facility] [address] [place] [address] Dr. Karmen Mccormick EGFR-NON AF MARSHALLESE >60 Normal >=60 [facility] Comment on above: Performed By: #### P OCGLUC #### [facility] [address] [address] [address] Karmen Mccormick Globulin (S) [Mass/Vol] 3.5 g/dL Normal [facility] Comment on above: Performed By: #### P OCGLUC #### [facility] [address] [place] [address] Dr. Karmen Mccormick Glucose [Mass/Vol] 121 mg/dL Critically high 74-106 [facility] Comment on above: Performed By: #### P OCGLUC #### [facility] [address] [place] [address] Dr. Karmen Mccormick Potassium [Moles/Vol] 3.7 mmol/L Normal 3.5-5.1 [facility] Comment on above: Performed By: #### P OCGLUC #### [facility] [address] [address] [address] Karmen Mccormick Protein [Mass/Vol] 5.9 g/dL Critically low 6.4-8.2 [facility] Comment on above: Performed By: #### P OCGLUC #### [facility] [address] [address] [address] Karmen Mccormick Sodium [Moles/Vol] 140 mmol/L Normal 136-145 [facility] Comment on above: Performed By: #### P OCGLUC #### [facility] [address] [address] [address] Karmen Mccormick Urea nitrogen [Mass/Vol] 10.0 mg/dL Normal 7.0-18.0 [facility] Comment on above: Performed By: #### P OCGLUC #### [facility] [address] [address] [address] Karmen Mccormick Urea nitrogen/Creatinine [Mass ratio] 15.9 mg/mg Normal [facility] Comment on above: Performed By: #### P OCGLUC #### [facility] [address] [address] [address] Karmen Mccormick XR ABD FLAT UP_PA [...] TEJAS CHRISTOPHER Date: 2022-03-31 13:12 Normal [facility] CBC AUTO DIFFon 03-30-2022 BASO # 0.0 103/ul Normal 0.0-0.1 [facility] Comment on above: Performed By: #### C BC #### [facility] [address] [address] [address] Karmen Mccormick Basophils/100 WBC (Bld) 0.4 % Normal 0.2-2.0 [facility] Comment on above: Performed By: #### C BC #### [facility] [address] [address] [address] Karmen Mccormick EO # 0.1 103/ul Normal 0.0-0.7 [facility] Comment on above: Performed By: #### C BC #### [facility] [address] [place] [address] Dr. Karmen Mccormick Eosinophils/100 WBC (Bld) 1.5 % Normal 0.9-7.0 [facility] Comment on above: Performed By: #### C BC #### [facility] [address] [place] [address] Dr. Karmen Mccormick Erythrocyte distribution width (RBC) [Ratio] 13.6 % Normal 11.0-15.0 [facility] Comment on above: Performed By: #### C BC #### [facility] [address] [place] [address] Dr. Karmen Mccormick Hematocrit (Bld) [Volume fraction] 37.1 % Normal 36.0-48.0 [facility] Comment on above: Performed By: #### C BC #### [facility] [address] [place] [address] Dr. Karmen Mccormick Hemoglobin (Bld) [Mass/Vol] 12.1 g/dL Normal 12.0-16.0 [facility] Comment on above: Performed By: #### C BC #### [facility] [address] [place] [address] Dr. Karmen Mccormick IG # 0.02 10e3/ul Normal 0.00-0.03 [facility] Comment on above: Performed By: #### C BC #### [facility] [address] [place] [address] Dr. Karmen Mccormick IG % 0.3 % Normal 0.0-0.5 [facility] Comment on above: Performed By: #### C BC #### [facility] [address] [place] [address] Dr. Karmen Mccormick LYMPH # 2.0 103/ul Normal 1.2-3.8 [facility] Comment on above: Performed By: #### C BC #### [facility] [address] [place] [address] Dr. Karmen Mccormick Lymphocytes/100 WBC (Bld) 25.7 % Normal 20.5-60.0 [facility] Comment on above: Performed By: #### C BC #### [facility] [address] [place] [address] Dr. Karmen Mccormick MANUAL DIFF REQ NO Normal [facility] Comment on above: Performed By: #### C BC #### [facility] [address] [place] [address] Dr. Karmen Mccormick MCH (RBC) [Entitic mass] 28.8 pg Normal 26.7-34.0 [facility] Comment on above: Performed By: #### C BC #### [facility] [address] [place] [address] Dr. Karmen Mccormick MCHC (RBC) [Mass/Vol] 32.6 g/dL Normal 29.9-35.2 [facility] Comment on above: Performed By: #### C BC #### [facility] [address] [place] [address] Dr. Karmen Mccormick MCV (RBC) [Entitic vol] 88.3 fL Normal 81.0-99.0 [facility] Comment on above: Performed By: #### C BC #### [facility] [address] [place] [address] Dr. Karmen Mccormick MONO # 0.8 103/ul Normal 0.3-0.8 [facility] Comment on above: Performed By: #### C BC #### [facility] [address] [place] [address] Dr. Karmen Mccormick Monocytes/100 WBC (Bld) 9.5 % Normal 1.7-12.0 [facility] Comment on above: Performed By: #### C BC #### [facility] [address] [place] [address] Dr. Karmen Mccormick NEUT # 4.9 103/ul Normal 1.4-6.5 [facility] Comment on above: Performed By: #### C BC #### [facility] [address] [place] [address] Dr. Karmen Mccormick Neutrophils/100 WBC (Bld) 62.6 % Normal 43.0-75.0 [facility] Comment on above: Performed By: #### C BC #### [facility] [address] [place] [address] Dr. Karmen Mccormick Platelet mean volume (Bld) [Entitic vol] 8.9 fL Critically low 9.5-13.5 [facility] Comment on above: Performed By: #### C BC #### [facility] [address] [place] [address] Dr. Karmen Mccormick PLT 324 103/ul Normal 150-450 [facility] Comment on above: Performed By: #### C BC #### [facility] [address] [place] [address] Dr. Karmen Mccormick RBC 4.20 106/ul Normal 4.20-5.40 [facility] Comment on above: Performed By: #### C BC #### [facility] [address] [place] [address] Dr. Karmen Mccormick WBC 7.9 103/ul Normal 4.0-11.0 [facility] Comment on above: Performed By: #### C BC #### [facility] [address] [place] [address] Dr. Karmen Mccormick POINT OF CARE GLUCOSEon 03-13 Glucose [Mass/Vol] 147 mg/dL Critically high 74-106 [facility] Comment on above: Performed By: #### P OCGLUC #### [facility] [address] [place] [address] Dr. Karmen Mccormick Glucose [Mass/Vol] 187 mg/dL Critically high 74-106 [facility] Comment on above: Performed By: #### C VDTBH #### [facility] [address] [place] [address] Dr. Karmen Mccormick Glucose [Mass/Vol] 211 mg/dL Critically high 74-106 [facility] Comment on above: Performed By: #### B MP #### [facility] [address] [place] [address] Dr. Karmen Mccormick PROF 14(COMP METB)on 022 Albumin [Mass/Vol] 2.5 g/dL Critically low 3.4-5.0 [facility] Comment on above: Performed By: #### C BC #### [facility] [address] [place] [address] Dr. Karmen Mccormick Albumin/Globulin [Mass ratio] 0.7 {ratio} Normal [facility] Comment on above: Performed By: #### C BC #### [facility] [address] [place] [address] Dr. Karmen Mccormick ALP [Catalytic activity/Vol] 76 U/L Normal 46-116 [facility] Comment on above: Performed By: #### C BC #### [facility] [address] [place] [address] Dr. Karmen Mccormick ALT [Catalytic activity/Vol] 7 U/L Critically low 14-59 [facility] Comment on above: Performed By: #### C BC #### [facility] [address] [place] [address] Dr. Karmen Mccormcik Anion gap [Moles/Vol] 10.8 mmol/L Normal [facility] Comment on above: Performed By: #### C BC #### [facility] [address] [place] [address] Dr. Karmen Mccormick AST [Catalytic activity/Vol] 11 U/L Critically low 15-37 [facility] Comment on above: Performed By: #### C BC #### [facility] [address] [place] [address] Dr. Karmen Mccormick Bilirubin [Mass/Vol] 0.3 mg/dL Normal 0.2-1.0 [facility] Comment on above: Performed By: #### C BC #### [facility] [address] [address] [address] Karmen Mccormick Calcium [Mass/Vol] 8.4 mg/dL Critically low 8.5-10.1 [facility] Comment on above: Performed By: #### C BC #### [facility] [address] [address] [address] Karmen Mccormick Chloride [Moles/Vol] 106 mmol/L Normal 98-107 [facility] Comment on above: Performed By: #### C BC #### [facility] [address] [place] [address] Dr. Karmen Mccormick CO2 [Moles/Vol] 23.6 mmol/L Normal 21.0-32.[address] [facility] Comment on above: Performed By: #### C BC #### [facility] [address] [place] [address] Dr. Karmen Mccormick Creatinine [Mass/Vol] 0.66 mg/dL Normal 0.55-1.02 [facility] Comment on above: Performed By: #### C BC #### [facility] [address] [place] [address] Dr. Karmen Mccormick EGFR-AF MARSHALLESE >60 Normal >=[address] [facility] Comment on above: Performed By: #### C BC #### [facility] [address] [place] [address] Dr. Karmen Mccormick EGFR-NON AF MARSHALLESE >60 Normal >=60 [facility] Comment on above: Performed By: #### C BC #### [facility] [address] [place] [address] Dr. Karmen Mccormick Globulin (S) [Mass/Vol] 3.4 g/dL Normal [facility] Comment on above: Performed By: #### C BC #### [facility] [address] [place] [address] Dr. Karmen Mccormick Glucose [Mass/Vol] 187 mg/dL Critically high 74-106 [facility] Comment on above: Performed By: #### C BC #### [facility] [address] [place] [address] Dr. Karmen Mccormick Potassium [Moles/Vol] 3.4 mmol/L Critically low 3.5-5.1 [facility] Comment on above: Performed By: #### C BC #### [facility] [address] [place] [address] Dr. Karmen Mccormick Protein [Mass/Vol] 5.9 g/dL Critically low 6.4-8.2 [facility] Comment on above: Performed By: #### C BC #### [facility] [address] [place] [address] Dr. Karmen Mccormick Sodium [Moles/Vol] 137 mmol/L Normal 136-145 [facility] Comment on above: Performed By: #### C BC #### [facility] [address] [place] [address] Dr. Karmen Mccormick Urea nitrogen [Mass/Vol] 14.0 mg/dL Normal 7.0-18.0 [facility] Comment on above: Performed By: #### C BC #### [facility] [address] [place] [address] Dr. Karmen Mccormick Urea nitrogen/Creatinine [Mass ratio] 21.2 mg/mg Normal [facility] Comment on above: Performed By: #### C BC #### [facility] [address] [place] [address] Dr. Karmen Mccormick CBC AUTO DIFFon 03-29-2022 BASO # 0.0 103/ul Normal 0.0-0.1 [facility] Comment on above: Performed By: #### P OCGLUC #### [facility] [address] [place] [address] Dr. Karmen Mccormick Basophils/100 WBC (Bld) 0.3 % Normal 0.2-2.0 [facility] Comment on above: Performed By: #### P OCGLUC #### [facility] [address] [place] [address] Dr. Karmen Mccormick EO # 0.0 103/ul Normal 0.0-0.7 [facility] Comment on above: Performed By: #### P OCGLUC #### [facility] [address] [place] [address] Dr. Karmen Mccormick Eosinophils/100 WBC (Bld) 0.4 % Critically low 0.9-7.0 [facility] Comment on above: Performed By: #### P OCGLUC #### [facility] [address] [place] [address] Dr. Karmen Mccormick Erythrocyte distribution width (RBC) [Ratio] 13.7 % Normal 11.0-15.0 [facility] Comment on above: Performed By: #### P OCGLUC #### [facility] [address] [place] [address] Dr. Karmen Mccormick Hematocrit (Bld) [Volume fraction] 40.9 % Normal 36.0-48.0 [facility] Comment on above: Performed By: #### P OCGLUC #### [facility] [address] [place] [address] Dr. Karmen Mccormick Hemoglobin (Bld) [Mass/Vol] 13.4 g/dL Normal 12.0-16.0 [facility] Comment on above: Performed By: #### P OCGLUC #### [facility] [address] [place] [address] Dr. Karmen Mccormick IG # 0.05 10e3/ul Critically high 0.00-0.03 [facility] Comment on above: Performed By: #### P OCGLUC #### [facility] [address] [place] [address] Dr. Karmen Mccormick IG % 0.5 % Normal 0.0-0.5 [facility] Comment on above: Performed By: #### P OCGLUC #### [facility] [address] [place] [address] Dr. Karmen Mccormick LYMPH # 1.3 103/ul Normal 1.2-3.8 [facility] Comment on above: Performed By: #### P OCGLUC #### [facility] [address] [place] [address] Dr. Karmen Mccormick Lymphocytes/100 WBC (Bld) 13.4 % Critically low 20.5-60.0 [facility] Comment on above: Performed By: #### P OCGLUC #### [facility] [address] [place] [address] Dr. Karmen Mccormick MANUAL DIFF REQ NO Normal [facility] Comment on above: Performed By: #### P OCGLUC #### [facility] [address] [place] [address] Dr. Karmen Mccormick MCH (RBC) [Entitic mass] 28.8 pg Normal 26.7-34.0 [facility] Comment on above: Performed By: #### P OCGLUC #### [facility] [address] [place] [address] Dr. Karmen Mccormick MCHC (RBC) [Mass/Vol] 32.8 g/dL Normal 29.9-35.2 [facility] Comment on above: Performed By: #### P OCGLUC #### [facility] [address] [place] [address] Dr. Karmen Mccormick MCV (RBC) [Entitic vol] 87.8 fL Normal 81.0-99.0 [facility] Comment on above: Performed By: #### P OCGLUC #### [facility] [address] [place] [address] Dr. Karmen Mccormick MONO # 0.7 103/ul Normal 0.3-0.8 [facility] Comment on above: Performed By: #### P OCGLUC #### [facility] [address] [place] [address] Dr. Karmen Mccormick Monocytes/100 WBC (Bld) 7.4 % Normal 1.7-12.0 [facility] Comment on above: Performed By: #### P OCGLUC #### [facility] [address] [place] [address] Dr. Karmen Mccormick NEUT # 7.6 103/ul Critically high 1.4-6.5 [facility] Comment on above: Performed By: #### P OCGLUC #### [facility] [address] [place] [address] Dr. Karmen Mccormick Neutrophils/100 WBC (Bld) 78.0 % Critically high 43.0-75.0 [facility] Comment on above: Performed By: #### P OCGLUC #### [facility] [address] [place] [address] Dr. Karmen Mccormick Platelet mean volume (Bld) [Entitic vol] 9.1 fL Critically low 9.5-13.5 [facility] Comment on above: Performed By: #### P OCGLUC #### [facility] [address] [place] [address] Dr. Karmen Mccormick PLT 370 103/ul Normal 150-450 [facility] Comment on above: Performed By: #### P OCGLUC #### [facility] [address] [address] [address] Karmen Mccormick RBC 4.66 106/ul Normal 4.20-5.40 [facility] Comment on above: Performed By: #### P OCGLUC #### [facility] [address] [place] [address] Dr. Karmen Mccormick WBC 9.8 103/ul Normal 4.0-11.0 [facility] Comment on above: Performed By: #### P OCGLUC #### [facility] [address] [place] [address] Dr. Karmen Mccormick POINT OF CARE GLUCOSEon 03-13 Glucose [Mass/Vol] 233 mg/dL Critically high 74-106 [facility] Comment on above: Performed By: #### C VDTBH #### [facility] [address] [place] [address] Dr. Karmen Mccormick Glucose [Mass/Vol] 212 mg/dL Critically high 74-106 [facility] Comment on above: Performed By: #### P OCGLUC #### [facility] [address] [place] [address] Dr. Karmen Mccormick Glucose [Mass/Vol] 237 mg/dL Critically high 74-106 [facility] Comment on above: Performed By: #### A CETON #### [facility] [address] [place] [address] Dr. Karmen Mccormick PROF 14(COMP METB)on 022 Albumin [Mass/Vol] 2.6 g/dL Critically low 3.4-5.0 [facility] Comment on above: Performed By: #### P OCGLUC #### [facility] [address] [address] [address] Karmen Mccormick Albumin/Globulin [Mass ratio] 0.7 {ratio} Normal [facility] Comment on above: Performed By: #### P OCGLUC #### [facility] [address] [address] [address] Karmen Mccormick ALP [Catalytic activity/Vol] 86 U/L Normal 46-116 [facility] Comment on above: Performed By: #### P OCGLUC #### [facility] [address] [address] [address] Karmen Mccormick ALT [Catalytic activity/Vol] 12 U/L Critically low 14-59 [facility] Comment on above: Performed By: #### P OCGLUC #### [facility] [address] [place] [address] Dr. Karmen Mccormick Anion gap [Moles/Vol] 14.9 mmol/L Normal [facility] Comment on above: Performed By: #### P OCGLUC #### [facility] [address] [place] [address] Dr. Karmen Mccormick AST [Catalytic activity/Vol] 13 U/L Critically low 15-37 [facility] Comment on above: Performed By: #### P OCGLUC #### [facility] [address] [place] [address] Dr. Karmen Mccormick Bilirubin [Mass/Vol] 0.3 mg/dL Normal 0.2-1.0 [facility] Comment on above: Performed By: #### P OCGLUC #### [facility] [address] [address] [address] Karmen Mccormick Calcium [Mass/Vol] 8.8 mg/dL Normal 8.5-10.1 [facility] Comment on above: Performed By: #### P OCGLUC #### [facility] [address] [address] [address] Karmen Mccormick Chloride [Moles/Vol] 106 mmol/L Normal 98-107 [facility] Comment on above: Performed By: #### P OCGLUC #### [facility] [address] [place] [address] Dr. Karmen Mccormick CO2 [Moles/Vol] 21.6 mmol/L Normal 21.0-32.[address] [facility] Comment on above: Performed By: #### P OCGLUC #### [facility] [address] [address] [address] Karmen Mccormick Creatinine [Mass/Vol] 0.77 mg/dL Normal 0.55-1.02 [facility] Comment on above: Performed By: #### P OCGLUC #### [facility] [address] [address] [address] Karmen Mccormick EGFR-AF MARSHALLESE >60 Normal >=[address] [facility] Comment on above: Performed By: #### P OCGLUC #### [facility] [address] [address] [address] Karmen Mccormick EGFR-NON AF MARSHALLESE >60 Normal >=60 [facility] Comment on above: Performed By: #### P OCGLUC #### [facility] [address] [address] [address] Karmen Mccormick Globulin (S) [Mass/Vol] 3.9 g/dL Normal [facility] Comment on above: Performed By: #### P OCGLUC #### [facility] [address] [place] [address] Dr. Karmen Mccormick Glucose [Mass/Vol] 195 mg/dL Critically high 74-106 [facility] Comment on above: Performed By: #### P OCGLUC #### [facility] [address] [place] [address] Dr. Karmen Mccormick Potassium [Moles/Vol] 3.5 mmol/L Normal 3.5-5.1 [facility] Comment on above: Performed By: #### P OCGLUC #### [facility] [address] [address] [address] Karmen Mccormick Protein [Mass/Vol] 6.5 g/dL Normal 6.4-8.2 [facility] Comment on above: Performed By: #### P OCGLUC #### [facility] [address] [address] [address] Karmen Mccormick Sodium [Moles/Vol] 139 mmol/L Normal 136-145 [facility] Comment on above: Performed By: #### P OCGLUC #### [facility] [address] [place] [address] Dr. Karmen Mccormick Urea nitrogen [Mass/Vol] 17.0 mg/dL Normal 7.0-18.0 [facility] Comment on above: Performed By: #### P OCGLUC #### [facility] [address] [place] [address] Dr. Karmen Mccormick Urea nitrogen/Creatinine [Mass ratio] 22.1 mg/mg Normal [facility] Comment on above: Performed By: #### P OCGLUC #### [facility] [address] [place] [address] Dr. Karmen Mccormick CBC AUTO DIFFon 03-28-2022 BASO # 0.0 103/ul Normal 0.0-0.1 [facility] Comment on above: Performed By: #### P OCGLUC #### [facility] [address] [place] [address] Dr. Karmen Mccormick Basophils/100 WBC (Bld) 0.3 % Normal 0.2-2.0 [facility] Comment on above: Performed By: #### P OCGLUC #### [facility] [address] [place] [address] Dr. Karmen Mccormick EO # 0.0 103/ul Normal 0.0-0.7 [facility] Comment on above: Performed By: #### P OCGLUC #### [facility] [address] [place] [address] Dr. Karmen Mccormick Eosinophils/100 WBC (Bld) 0.2 % Critically low 0.9-7.0 [facility] Comment on above: Performed By: #### P OCGLUC #### [facility] [address] [place] [address] Dr. Karmen Mccormick Erythrocyte distribution width (RBC) [Ratio] 13.2 % Normal 11.0-15.0 [facility] Comment on above: Performed By: #### P OCGLUC #### [facility] [address] [place] [address] Dr. Karmen Mccormick Hematocrit (Bld) [Volume fraction] 39.1 % Normal 36.0-48.0 [facility] Comment on above: Performed By: #### P OCGLUC #### [facility] [address] [address] [address] Karmen Mccormick Hemoglobin (Bld) [Mass/Vol] 13.0 g/dL Normal 12.0-16.0 [facility] Comment on above: Performed By: #### P OCGLUC #### [facility] [address] [place] [address] Dr. Karmen Mccormick IG # 0.08 10e3/ul Critically high 0.00-0.03 [facility] Comment on above: Performed By: #### P OCGLUC #### [facility] [address] [place] [address] Dr. Karmen Mccormick IG % 0.7 % Critically high 0.0-0.5 [facility] Comment on above: Performed By: #### P OCGLUC #### [facility] [address] [place] [address] Dr. Karmen Mccormick LYMPH # 1.4 103/ul Normal 1.2-3.8 [facility] Comment on above: Performed By: #### P OCGLUC #### [facility] [address] [place] [address] Dr. Karmen Mccormick Lymphocytes/100 WBC (Bld) 12.3 % Critically low 20.5-60.0 [facility] Comment on above: Performed By: #### P OCGLUC #### [facility] [address] [place] [address] Dr. Karmen Mccormick MANUAL DIFF REQ NO Normal [facility] Comment on above: Performed By: #### P OCGLUC #### [facility] [address] [place] [address] Dr. Karmen Mccormick MCH (RBC) [Entitic mass] 29.3 pg Normal 26.7-34.0 [facility] Comment on above: Performed By: #### P OCGLUC #### [facility] [address] [place] [address] Dr. Karmen Mccormick MCHC (RBC) [Mass/Vol] 33.2 g/dL Normal 29.9-35.2 [facility] Comment on above: Performed By: #### P OCGLUC #### [facility] [address] [address] [address] Karmen Mccormick MCV (RBC) [Entitic vol] 88.3 fL Normal 81.0-99.0 [facility] Comment on above: Performed By: #### P OCGLUC #### [facility] [address] [address] [address] Karmen Mccormick MONO # 0.8 103/ul Normal 0.3-0.8 [facility] Comment on above: Performed By: #### P OCGLUC #### [facility] [address] [place] [address] Dr. Karmen Mccormick Monocytes/100 WBC (Bld) 6.6 % Normal 1.7-12.0 [facility] Comment on above: Performed By: #### P OCGLUC #### [facility] [address] [place] [address] Dr. Karmen Mccormick NEUT # 9.1 103/ul Critically high 1.4-6.5 [facility] Comment on above: Performed By: #### P OCGLUC #### [facility] [address] [place] [address] Dr. Karmen Mccormick Neutrophils/100 WBC (Bld) 79.9 % Critically high 43.0-75.0 [facility] Comment on above: Performed By: #### P OCGLUC #### [facility] [address] [place] [address] Dr. Karmen Mccormick Platelet mean volume (Bld) [Entitic vol] 10.1 fL Normal 9.5-13.5 [facility] Comment on above: Performed By: #### P OCGLUC #### [facility] [address] [place] [address] Dr. Karmen Mccormick PLT 336 103/ul Normal 150-450 [facility] Comment on above: Performed By: #### P OCGLUC #### [facility] [address] [place] [address] Dr. Karmen Mccormick RBC 4.43 106/ul Normal 4.20-5.40 [facility] Comment on above: Performed By: #### P OCGLUC #### [facility] [address] [address] [address] Karmen Mccormick WBC 11.4 103/ul Critically high 4.0-11.[address] [facility] Comment on above: Performed By: #### P OCGLUC #### [facility] [address] [address] [address] Karmen Mccormick POINT OF CARE GLUCOSEon 03-13 Glucose [Mass/Vol] 198 mg/dL Critically high [address] [place] [address] Comment on above: Performed By: #### P OCGLUC #### [facility] [address] [place] [address] Dr. Karmen Mccormick Glucose [Mass/Vol] 509 mg/dL Critically high [address] [place] [address] Comment on above: Result Comment: [employer] Performed By: #### P OCGLUC #### [facility] [address] [place] [address] Dr. Karmen Mccormick Glucose [Mass/Vol] 193 mg/dL Critically high [address] [place] [address] Comment on above: Performed By: #### C VDTBH #### [facility] [address] [place] [address] Dr. Karmen Mccormick Glucose [Mass/Vol] 217 mg/dL Critically high [address] [place] [address] Comment on above: Performed By: #### C BC #### [facility] [address] [place] [address] Dr. Karmen Mccormick Glucose [Mass/Vol] 207 mg/dL Critically high [address] [place] [address] Comment on above: Performed By: #### P OCGLUC #### [facility] [address] [place] [address] Dr. Karmen Mccormick Glucose [Mass/Vol] 198 mg/dL Critically high [address] [place] [address] Comment on above: Performed By: #### P OCGLUC #### [facility] [address] [place] [address] Dr. Karmen Mccormick Glucose [Mass/Vol] 208 mg/dL Critically high [address] [place] [address] Comment on above: Performed By: #### P OCGLUC #### [facility] [address] [address] [address] Karmen Mccormick Glucose [Mass/Vol] 194 mg/dL Critically high [address] [place] [address] Comment on above: Performed By: #### P OCGLUC #### [facility] [address] [address] [address] Karmen Mccormick Glucose [Mass/Vol] 162 mg/dL Critically high [address] [place] [address] Comment on above: Performed By: #### P OCGLUC #### [facility] [address] [address] [address] Karmen Mccormick Glucose [Mass/Vol] 166 mg/dL Critically high [address] [place] [address] Comment on above: Performed By: #### P OCGLUC #### [facility] [address] [address] [address] Karmen Mccormick Glucose [Mass/Vol] 209 mg/dL Critically high [address] [place] [address] Comment on above: Performed By: #### P OCGLUC #### [facility] [address] [address] [address] Karmen Mccormick Glucose [Mass/Vol] 210 mg/dL Critically high [address] [place] [address] Comment on above: Performed By: #### P OCGLUC #### [facility] [address] [address] [address] Karmen Mccormick Glucose [Mass/Vol] 207 mg/dL Critically high [address] [place] [address] Comment on above: Performed By: #### C VDTBH #### [facility] [address] [address] [address] Karmen Mccormick Glucose [Mass/Vol] 209 mg/dL Critically high [address] [place] [address] Comment on above: Performed By: #### P OCGLUC #### [facility] [address] [address] [address] Karmen Mccormick Glucose [Mass/Vol] 225 mg/dL Critically high [facility]106 [facility] Comment on above: Performed By: #### A CETON #### [facility] [address] [address] [address] Karmen Mccormick Glucose [Mass/Vol] 262 mg/dL Critically high -106 [facility] Comment on above: Performed By: #### P OCGLUC #### [facility] [address] [address] [address] Karmen Mccormick Glucose [Mass/Vol] 252 mg/dL Critically high -106 [facility] Comment on above: Performed By: #### P OCGLUC #### [facility] [address] [place] [address] Dr. Karmen Mccormick PROF 14(COMP METB)on 022 Albumin [Mass/Vol] 2.9 g/dL Critically low 3.4-5.0 [facility] Comment on above: Performed By: #### C VDTBH #### [facility] [address] [place] [address] Dr. Karmen Mccormick Albumin/Globulin [Mass ratio] 0.7 {ratio} Normal [facility] Comment on above: Performed By: #### C VDTBH #### [facility] [address] [place] [address] Dr. Karmen Mccormick ALP [Catalytic activity/Vol] 102 U/L Normal 46-116 [facility] Comment on above: Performed By: #### C VDTBH #### [facility] [address] [place] [address] Dr. Karmen Mccormick ALT [Catalytic activity/Vol] 13 U/L Critically low 14-59 [facility] Comment on above: Performed By: #### C VDTBH #### [facility] [address] [place] [address] Dr. Karmen Mccormick Anion gap [Moles/Vol] 18.1 mmol/L Normal [facility] Comment on above: Performed By: #### C VDTBH #### [facility] [address] [place] [address] Dr. Karmen Mccormick AST [Catalytic activity/Vol] 10 U/L Critically low 15-37 [facility] Comment on above: Performed By: #### C VDTBH #### [facility] [address] [place] [address] Dr. Karmen Mccormick Bilirubin [Mass/Vol] 0.2 mg/dL Normal 0.2-1.0 [facility] Comment on above: Performed By: #### C VDTBH #### [facility] [address] [place] [address] Dr. Karmen Mccormick Calcium [Mass/Vol] 9.5 mg/dL Normal 8.5-10.1 [facility] Comment on above: Performed By: #### C VDTBH #### [facility] [address] [place] [address] Dr. Karmen Mccormick Chloride [Moles/Vol] 107 mmol/L Normal 98-107 [facility] Comment on above: Performed By: #### C VDTBH #### [facility] [address] [place] [address] Dr. Karmen Mccormick CO2 [Moles/Vol] 21.3 mmol/L Normal 21.0-32.[address] [facility] Comment on above: Performed By: #### C VDTBH #### [facility] [address] [place] [address] Dr. Karmen Mccormick Creatinine [Mass/Vol] 0.86 mg/dL Normal 0.55-1.02 [facility] Comment on above: Performed By: #### C VDTBH #### [facility] [address] [place] [address] Dr. Karmen Mccormick EGFR-AF MARSHALLESE >60 Normal >=[address] [facility] Comment on above: Performed By: #### C VDTBH #### [facility] [address] [place] [address] Dr. Karmen Mccormick EGFR-NON AF MARSHALLESE >60 Normal >=60 [facility] Comment on above: Performed By: #### C VDTBH #### [facility] [address] [place] [address] Dr. Karmen Mccormick Globulin (S) [Mass/Vol] 4.3 g/dL Normal [facility] Comment on above: Performed By: #### C VDTBH #### [facility] [address] [address] [address] Karmen Mccormick Glucose [Mass/Vol] 199 mg/dL Critically high 74-106 [facility] Comment on above: Performed By: #### C VDTBH #### [facility] [address] [place] [address] Dr. Karmen Mccormick Potassium [Moles/Vol] 4.4 mmol/L Normal 3.5-5.1 [facility] Comment on above: Performed By: #### C VDTBH #### [facility] [address] [place] [address] Dr. Karmen Mccormick Protein [Mass/Vol] 7.2 g/dL Normal 6.4-8.2 [facility] Comment on above: Performed By: #### C VDTBH #### [facility] [address] [place] [address] Dr. Karmen Mccormick Sodium [Moles/Vol] 142 mmol/L Normal 136-145 [facility] Comment on above: Performed By: #### C VDTBH #### [facility] [address] [place] [address] Dr. Karmen Mccormick Urea nitrogen [Mass/Vol] 22.0 mg/dL Critically high 7.0-18.0 [facility] Comment on above: Performed By: #### C VDTBH #### [facility] [address] [place] [address] Dr. Karmen Mccormick Urea nitrogen/Creatinine [Mass ratio] 25.6 mg/mg Normal [facility] Comment on above: Performed By: #### C VDTBH #### [facility] [address] [place] [address] Dr. Karmen Mccormick PROF CHEM 8 (BAS METB)on Anion gap [Moles/Vol] 15.8 mmol/L Normal [facility] Comment on above: Performed By: #### A CETON #### [facility] [address] [place] [address] Dr. Karmen Mccormick Calcium [Mass/Vol] 9.3 mg/dL Normal 8.5-10.1 [facility] Comment on above: Performed By: #### A CETON #### [facility] [address] [address] [address] Karmen Mccormick Chloride [Moles/Vol] 106 mmol/L Normal 98-107 [facility] Comment on above: Performed By: #### A CETON #### [facility] [address] [address] [address] Karmen Mccormick CO2 [Moles/Vol] 22.0 mmol/L Normal 21.0-32.[address] [facility] Comment on above: Performed By: #### A CETON #### [facility] [address] [place] [address] Dr. Karmen Mccormick Creatinine [Mass/Vol] 0.83 mg/dL Normal 0.55-1.02 [facility] Comment on above: Performed By: #### A CETON #### [facility] [address] [place] [address] Dr. Karmen Mccormick EGFR-AF MARSHALLESE >60 Normal >=[address] [facility] Comment on above: Performed By: #### A CETON #### [facility] [address] [place] [address] Dr. Karmen Mccormick EGFR-NON AF MARSHALLESE >60 Normal >=60 [facility] Comment on above: Performed By: #### A CETON #### [facility] [address] [place] [address] Dr. Karmen Mccormick Glucose [Mass/Vol] 233 mg/dL Critically high 74-106 [facility] Comment on above: Performed By: #### A CETON #### [facility] [address] [address] [address] Karmen Mccormick Potassium [Moles/Vol] 3.8 mmol/L Normal 3.5-5.1 [facility] Comment on above: Performed By: #### A CETON #### [facility] [address] [address] [address] Karmen Mccormick Sodium [Moles/Vol] 140 mmol/L Normal 136-145 [facility] Comment on above: Performed By: #### A CETON #### [facility] [address] [address] [address] Karmen Mccormick Urea nitrogen [Mass/Vol] 21.0 mg/dL Critically high 7.0-18.0 [facility] Comment on above: Performed By: #### A CETON #### [facility] [address] [address] [address] Karmen Mccormick Urea nitrogen/Creatinine [Mass ratio] 25.3 mg/mg Normal [facility] Comment on above: Performed By: #### A CETON #### [facility] [address] [address] [address] Karmen Mccormick Anion gap [Moles/Vol] 20.4 mmol/L Normal [facility] Comment on above: Performed By: #### C BC #### [facility] [address] [address] [address] Karmen Mccormick Calcium [Mass/Vol] 9.7 mg/dL Normal 8.5-10.1 [facility] Comment on above: Performed By: #### C BC #### [facility] [address] [address] [address] Karmen Mccormick Chloride [Moles/Vol] 104 mmol/L Normal 98-107 [facility] Comment on above: Performed By: #### C BC #### [facility] [address] [address] [address] Karmen Mccormick CO2 [Moles/Vol] 17.7 mmol/L Critically low 21.0-32.0 [facility] Comment on above: Performed By: #### C BC #### [facility] [address] [address] [address] Karmen Mccormick Creatinine [Mass/Vol] 1.00 mg/dL Normal 0.55-1.02 [facility] Comment on above: Performed By: #### C BC #### [facility] [address] [address] [address] Karmen Mccormick EGFR-AF MARSHALLESE >60 Normal >=[address] [facility] Comment on above: Performed By: #### C BC #### [facility] [address] [address] [address] Karmen Mccormick EGFR-NON AF MARSHALLESE 55 mL/min/1.73m2 Critically low >=60 [facility] Comment on above: Performed By: #### C BC #### [facility] [address] [address] [address] Karmen Mccormick Glucose [Mass/Vol] 277 mg/dL Critically high 74-106 [facility] Comment on above: Performed By: #### C BC #### [facility] [address] [address] [address] Karmen Mccormick Potassium [Moles/Vol] 4.1 mmol/L Normal 3.5-5.1 [facility] Comment on above: Performed By: #### C BC #### [facility] [address] [place] [address] Dr. Karmen Mccormick Sodium [Moles/Vol] 138 mmol/L Normal 136-145 [facility] Comment on above: Performed By: #### C BC #### [facility] [address] [address] [address] Karmen Mccormick Urea nitrogen [Mass/Vol] 23.0 mg/dL Critically high 7.0-18.0 [facility] Comment on above: Performed By: #### C BC #### [facility] [address] [address] [address] Karmen Mccormick Urea nitrogen/Creatinine [Mass ratio] 23.0 mg/mg Normal [facility] Comment on above: Performed By: #### C BC #### [facility] [address] [address] [address] Karmen Mccormick ACETONE SERUMon 03-27-2022 ACETONE SMALL Abnormal NEGATIVE [facility] Comment on above: Performed By: #### A CETON #### [facility] [address] [place] [address] Dr. Karmen Mccormick CBC AUTO DIFFon 03-27-2022 BASO # 0.0 103/ul Normal 0.0-0.1 [facility] Comment on above: Performed By: #### P OCGLUC #### [facility] [address] [address] [address] Karmen Mccormick Basophils/100 WBC (Bld) 0.3 % Normal 0.2-2.0 [facility] Comment on above: Performed By: #### P OCGLUC #### [facility] [address] [address] [address] Karmen Mccormick EO # 0.0 103/ul Normal 0.0-0.7 [facility] Comment on above: Performed By: #### P OCGLUC #### [facility] [address] [address] [address] Karmen Mccormick Eosinophils/100 WBC (Bld) 0.2 % Critically low 0.9-7.0 [facility] Comment on above: Performed By: #### P OCGLUC #### [facility] [address] [place] [address] Dr. Karmen Mccormick Erythrocyte distribution width (RBC) [Ratio] 13.0 % Normal 11.0-15.0 [facility] Comment on above: Performed By: #### P OCGLUC #### [facility] [address] [address] [address] Karmen Mccormick Hematocrit (Bld) [Volume fraction] 42.0 % Normal 36.0-48.0 [facility] Comment on above: Performed By: #### P OCGLUC #### [facility] [address] [place] [address] Dr. Karmen Mccormick Hemoglobin (Bld) [Mass/Vol] 13.5 g/dL Normal 12.0-16.0 [facility] Comment on above: Performed By: #### P OCGLUC #### [facility] [address] [address] [address] Karmen Mccormick IG # 0.07 10e3/ul Critically high 0.00-0.03 [facility] Comment on above: Performed By: #### P OCGLUC #### [facility] [address] [address] [address] Karmen Mccormick IG % 0.8 % Critically high 0.0-0.5 [facility] Comment on above: Performed By: #### P OCGLUC #### [facility] [address] [address] [address] Karmen Mccormick LYMPH # 1.0 103/ul Critically low 1.2-3.8 [facility] Comment on above: Performed By: #### P OCGLUC #### [facility] [address] [address] [address] Karmen Mccormick Lymphocytes/100 WBC (Bld) 11.0 % Critically low 20.5-60.0 [facility] Comment on above: Performed By: #### P OCGLUC #### [facility] [address] [address] [address] Karmen Mccormick MANUAL DIFF REQ NO Normal [facility] Comment on above: Performed By: #### P OCGLUC #### [facility] [address] [address] [address] Karmen Mccormick MCH (RBC) [Entitic mass] 28.8 pg Normal 26.7-34.0 [facility] Comment on above: Performed By: #### P OCGLUC #### [facility] [address] [address] [address] Karmen Mccormick MCHC (RBC) [Mass/Vol] 32.1 g/dL Normal 29.9-35.2 [facility] Comment on above: Performed By: #### P OCGLUC #### [facility] [address] [address] [address] Karmen Mccormick MCV (RBC) [Entitic vol] 89.7 fL Normal 81.0-99.0 [facility] Comment on above: Performed By: #### P OCGLUC #### [facility] [address] [address] [address] Karmen Mccormick MONO # 0.4 103/ul Normal 0.3-0.8 [facility] Comment on above: Performed By: #### P OCGLUC #### [facility] [address] [address] [address] Karmen Mccormick Monocytes/100 WBC (Bld) 4.8 % Normal 1.7-12.0 [facility] Comment on above: Performed By: #### P OCGLUC #### [facility] [address] [address] [address] Karmen Mccormick NEUT # 7.5 103/ul Critically high 1.4-6.5 [facility] Comment on above: Performed By: #### P OCGLUC #### [facility] [address] [address] [address] Karmen Mccormick Neutrophils/100 WBC (Bld) 82.9 % Critically high 43.0-75.0 [facility] Comment on above: Performed By: #### P OCGLUC #### [facility] [address] [place] [address] Dr. Karmen Mccormick Platelet mean volume (Bld) [Entitic vol] 10.3 fL Normal 9.5-13.5 [facility] Comment on above: Performed By: #### P OCGLUC #### [facility] [address] [place] [address] Dr. Karmen Mccormick PLT 333 103/ul Normal 150-450 [facility] Comment on above: Performed By: #### P OCGLUC #### [facility] [address] [place] [address] Dr. Karmen Mccormick RBC 4.68 106/ul Normal 4.20-5.40 [facility] Comment on above: Performed By: #### P OCGLUC #### [facility] [address] [place] [address] Dr. Karmen Mccormick WBC 9.0 103/ul Normal 4.0-11.0 [facility] Comment on above: Performed By: #### P OCGLUC #### [facility] [address] [place] [address] Dr. Karmen Mccormick Covid-19 PCR ([facility])on 03-13 SARS-CoV-2 (COVID-19) RNA IRVIN+probe Ql (Unsp spec) Not detected Normal NOT DETECTED [facility] Comment on above: Result Comment: When diagnostic [...] for this test is supported by the Estimating Engineer of Health and Human Service's declaration that [...] used). Performed By: #### C VDTBH #### [facility] [address] [place] [address] Dr. Karmen Mccormick ER URINE PROFILEon 2 Bilirubin Ql (U) Negative Normal NEGATIVE The [facility] Comment on above: Performed By: #### P OCGLUC #### [facility] [address] [place] [address] Dr. Karmen Mccormick Clarity (U) CLEAR Normal CLEAR [facility] Comment on above: Performed By: #### P OCGLUC #### [facility] [address] [place] [address] Dr. Karmen Mccormick Color (U) LT. YELLOW Normal YELLOW [facility] Comment on above: Performed By: #### P OCGLUC #### [facility] [address] [place] [address] Dr. Karmen ANDREWLay A micrscopic examination will be performed if indicated. Normal [facility] Comment on above: Performed By: #### P OCGLUC #### [facility] [address] [place] [address] Dr. Karmen Mccormick Glucose Ql (U) 1000 mg/dl Abnormal NEGATIVE The [facility] Comment on above: Performed By: #### P OCGLUC #### [facility] [address] [place] [address] Dr. Karmen Mccormick Hemoglobin Ql (U) Negative Normal NEGATIVE The [facility] Comment on above: Performed By: #### P OCGLUC #### [facility] [address] [address] [address] Karmen Mccormick Ketones Ql (U) >=[address] [facility] Comment on above: Performed By: #### P OCGLUC #### [facility] [address] [place] [address] Dr. Karmen Mccormick LEUKOCYTES Negative Normal NEGATIVE [facility] Comment on above: Performed By: #### P OCGLUC #### [facility] [address] [address] [address] Karmen Mccormick Nitrite Ql (U) Negative Normal NEGATIVE [facility] Comment on above: Performed By: #### P OCGLUC #### [facility] [address] [place] [address] Dr. Karemn Mccormick pH (U) 5.5 [pH] Normal 5-9 [facility] Comment on above: Performed By: #### P OCGLUC #### [facility] [address] [place] [address] Dr. Karmen Mccormick SPEC GRAVITY 1.020 Normal 1.005-<=1.025 [facility] Comment on above: Performed By: #### P OCGLUC #### [facility] [address] [place] [address] Dr. Karmen Mccormick UA PROTEIN Negative Normal NEGATIVE/ TRACE [facility] Comment on above: Performed By: #### P OCGLUC #### [facility] [address] [place] [address] Dr. Karmen Mccormick UR MICRO IND NOT INDICATED Normal [facility] Comment on above: Performed By: #### P OCGLUC #### [facility] [address] [place] [address] Dr. Karmen Mccormick Urobilinogen Qn (U) 0.2 {Rajeev'U}/dL Normal 0.2 - 1. 0 [facility] Comment on above: Performed By: #### P OCGLUC #### [facility] [address] [place] [address] Dr. Karmen Mccormcik LACTATE/LACTIC ACIDon 2021 Lactate [Moles/Vol] 1.5 mmol/L Normal 0.4-1.9 [facility] Comment on above: Performed By: #### P OCGLUC #### [facility] [address] [address] [address] Karmen Mccormick LIPASEon 03-27-2022 Lipase [Catalytic activity/Vol] 67.0 U/L Critically low 73.0-393.0 [facility] Comment on above: Performed By: #### P OCGLUC #### [facility] [address] [place] [address] Dr. Karmen Mccormick PH VENOUS BLOODon 03-27-2022 PCO2 VENOUS 30.3 mmHg Critically low 40.0-52.0 [facility] Comment on above: Performed By: #### P OCGLUC #### [facility] [address] [place] [address] Dr. Karmen Mccormick pH VENOUS 7.223 Critically low 7.330-7.430 [facility] Comment on above: Performed By: #### P OCGLUC #### [facility] [address] [place] [address] Dr. Karmen Mccormick POINT OF CARE GLUCOSEon 03-13 Glucose [Mass/Vol] 318 mg/dL Critically high [facility]106 [facility] Comment on above: Performed By: #### P OCGLUC #### [facility] [address] [place] [address] Dr. Karmen Mccormick Glucose [Mass/Vol] 289 mg/dL Critically high [facility] Comment on above: Performed By: #### P OCGLUC #### [facility] [address] [place] [address] Dr. Karmen Mccormick Glucose [Mass/Vol] 330 mg/dL Critically high -106 [facility] Comment on above: Performed By: #### P OCGLUC #### [facility] [address] [place] [address] Dr. Karmen Mccormick Glucose [Mass/Vol] 413 mg/dL Critically high -106 [facility] Comment on above: Performed By: #### P OCGLUC #### [facility] [address] [place] [address] Dr. Karmen Mccormick Glucose [Mass/Vol] 428 mg/dL Critically high 74-106 [facility] Comment on above: Performed By: #### B MP #### [facility] [address] [address] [address] Karmen Mccormick Glucose [Mass/Vol] 510 mg/dL Critically high 74-106 [facility] Comment on above: Result Comment: Resu lt Not Confirmed Performed By: #### A CETON #### [facility] [address] [address] [address] Karmen Mccormick Glucose [Mass/Vol] 587 mg/dL Critically high -106 [facility] Comment on above: Result Comment: Lab Draw Ordered Performed By: #### B MP #### [facility] [address] [place] [address] Dr. Karmen Mccormick PROF 14(COMP METB)on 022 Albumin [Mass/Vol] 3.1 g/dL Critically low 3.4-5.0 [facility] Comment on above: Performed By: #### P OCGLUC #### [facility] [address] [place] [address] Dr. Karmen Mccormick Albumin/Globulin [Mass ratio] 0.7 {ratio} Normal [facility] Comment on above: Performed By: #### P OCGLUC #### [facility] [address] [place] [address] Dr. Karmen Mccormick ALP [Catalytic activity/Vol] 108 U/L Normal 46-116 [facility] Comment on above: Performed By: #### P OCGLUC #### [facility] [address] [place] [address] Dr. Karmen Mccormick ALT [Catalytic activity/Vol] 14 U/L Normal 14-59 [facility] Comment on above: Performed By: #### P OCGLUC #### [facility] [address] [place] [address] Dr. Karmen Mccormick Anion gap [Moles/Vol] 29.9 mmol/L Normal [facility] Comment on above: Performed By: #### P OCGLUC #### [facility] [address] [address] [address] Karmen Mccormick AST [Catalytic activity/Vol] 8 U/L Critically low 15-37 [facility] Comment on above: Performed By: #### P OCGLUC #### [facility] [address] [address] [address] Karmen Mccormick Bilirubin [Mass/Vol] 0.5 mg/dL Normal 0.2-1.0 [facility] Comment on above: Performed By: #### P OCGLUC #### [facility] [address] [address] [address] Kramen Mccormick Calcium [Mass/Vol] 9.6 mg/dL Normal 8.5-10.1 [facility] Comment on above: Performed By: #### P OCGLUC #### [facility] [address] [address] [address] Karmen Mccormick Chloride [Moles/Vol] 95 mmol/L Critically low 98-107 [facility] Comment on above: Performed By: #### P OCGLUC #### [facility] [address] [address] [address] Karmen Mccormick CO2 [Moles/Vol] 11.3 mmol/L Critically low 21.0-32.0 [facility] Comment on above: Performed By: #### P OCGLUC #### [facility] [address] [address] [address] Karmen Mccormick Creatinine [Mass/Vol] 1.23 mg/dL Critically high 0.55-1.02 [facility] Comment on above: Performed By: #### P OCGLUC #### [facility] [address] [address] [address] Karmen Mccormick EGFR-AF MARSHALLESE 53 mL/min/1.73m2 Critically low >=60 [facility] Comment on above: Performed By: #### P OCGLUC #### [facility] [address] [address] [address] Karmen Mccormick EGFR-NON AF MARSHALLESE 43 mL/min/1.73m2 Critically low >=60 [facility] Comment on above: Performed By: #### P OCGLUC #### [facility] [address] [address] [address] Karmen Mccormick Globulin (S) [Mass/Vol] 4.5 g/dL Normal [facility] Comment on above: Performed By: #### P OCGLUC #### [facility] [address] [address] [address] Karmen Mccormick Glucose [Mass/Vol] 693 mg/dL Critically high 74-106 [facility] Comment on above: Result Comment: DILU ASHLEY Performed By: #### P OCGLUC #### [facility] [address] [address] [address] Karmen Mccormick Potassium [Moles/Vol] 5.2 mmol/L Critically high 3.5-5.1 [facility] Comment on above: Performed By: #### P OCGLUC #### [facility] [address] [place] [address] Dr. Karmen Mccormick Protein [Mass/Vol] 7.6 g/dL Normal 6.4-8.2 [facility] Comment on above: Performed By: #### P OCGLUC #### [facility] [address] [address] [address] Karmen Mccormick Sodium [Moles/Vol] 131 mmol/L Critically low 136-145 [facility] Comment on above: Performed By: #### P OCGLUC #### [facility] [address] [place] [address] Dr. Karmen Mccormick Urea nitrogen [Mass/Vol] 28.0 mg/dL Critically high 7.0-18.0 [facility] Comment on above: Performed By: #### P OCGLUC #### [facility] [address] [address] [address] Karmen Mccormick Urea nitrogen/Creatinine [Mass ratio] 22.8 mg/mg Normal [facility] Comment on above: Performed By: #### P OCGLUC #### [facility] [address] [place] [address] Dr. Karmen Mccormick PROF CHEM 8 (BAS METB)on Anion gap [Moles/Vol] 23.1 mmol/L Normal [facility] Comment on above: Performed By: #### B MP #### [facility] [address] [address] [address] Karmen Mccormick Calcium [Mass/Vol] 9.4 mg/dL Normal 8.5-10.1 [facility] Comment on above: Performed By: #### B MP #### [facility] [address] [address] [address] Karmen Mccormick Chloride [Moles/Vol] 103 mmol/L Normal 98-107 [facility] Comment on above: Performed By: #### B MP #### [facility] [address] [address] [address] Karmen Mccormick CO2 [Moles/Vol] 16.4 mmol/L Critically low 21.0-32.0 [facility] Comment on above: Performed By: #### B MP #### [facility] [address] [address] [address] Karmen Mccormick Creatinine [Mass/Vol] 1.08 mg/dL Critically high 0.55-1.02 [facility] Comment on above: Performed By: #### B MP #### [facility] [address] [address] [address] Karmen Mccormick EGFR-AF MARSHALLESE >60 Normal >=[address] [facility] Comment on above: Performed By: #### B MP #### [facility] [address] [address] [address] Karmen Mccormick EGFR-NON AF MARSHALLESE 50 mL/min/1.73m2 Critically low >=60 [facility] Comment on above: Performed By: #### B MP #### [facility] [address] [address] [address] Karmen Mccormick Glucose [Mass/Vol] 368 mg/dL Critically high 74-106 [facility] Comment on above: Performed By: #### B MP #### [facility] [address] [address] [address] Karmen Mccormick Potassium [Moles/Vol] 4.5 mmol/L Normal 3.5-5.1 [facility] Comment on above: Performed By: #### B MP #### [facility] [address] [address] [address] Karmen Mccormick Sodium [Moles/Vol] 138 mmol/L Normal 136-145 [facility] Comment on above: Performed By: #### B MP #### [facility] [address] [address] [address] Karmen Mccormick Urea nitrogen [Mass/Vol] 23.0 mg/dL Critically high 7.0-18.0 [facility] Comment on above: Performed By: #### B MP #### [facility] [address] [place] [address] Dr. Karmen Mccormick Urea nitrogen/Creatinine [Mass ratio] 21.3 mg/mg Normal [facility] Comment on above: Performed By: #### B MP #### [facility] [address] [place] [address] Dr. Karmen Mccormick PROTIMEon 03-27-2022 INR Coag (PPP) [Relative time] 0.99 {INR} Normal [facility] Comment on above: Performed By: #### B MP #### [facility] [address] [place] [address] Dr. Karmen Mccormick INR GUIDELINES SEE BELOW Normal [facility] Comment on above: Result Comment: ELVIRA RED INR: 2.0 - 3.0 CONDITIONS NOT LISTED BELOW 2.5 - 3.5 FOR PROSTHETIC HEART VALVE REPLACEMENT 2.5 - 3.5 RECURRENT THROMBOSIS Performed By: #### B MP #### [facility] [address] [place] [address] Dr. Karmen Mccormick PT Coag (PPP) [Time] 10.7 s Normal 9.0-11.6 [facility] Comment on above: Performed By: #### B MP #### [facility] [address] [place] [address] Dr. Karmen Mccormick PTTon 03-27-2022 aPTT Coag (Bld) [Time] 22.0 s Critically low 22.3-36.2 [facility] Comment on above: Performed By: #### A CETON #### [facility] [address] [place] [address] Dr. Karmen Mccormick TROPONIN, HIGH SENSITIVITYon 03-27-2022 HSTROP 54.4 pg/mL Critically high 4.0-51.3 [facility] Comment on above: Result Comment: CUT- OFF POINTS HAVE BEEN ESTABLISHED BASED ON THE FOURTH UNIVERSAL DEFINITIONS OF MYOCARDIAL INFARCTION. THE UPPER REFERENCE LIMIT (URL) OF TROPONIN, DEFINED THE 99TH PERCENTILE OF cTnI DISTRIBUTION IN A REFERENCE POPULATION, HAS BEEN CONFIRMED THE DECISION THRESHOLD FOR [place] DIAGNOSIS. Performed By: #### C BC #### [facility] [address] [address] [address] Karmen Mccormick HSTROP 59.3 pg/mL Critically high 4.0-51.3 [facility] Comment on above: Result Comment: CUT- OFF POINTS HAVE BEEN ESTABLISHED BASED ON THE FOURTH UNIVERSAL DEFINITIONS OF MYOCARDIAL INFARCTION. THE UPPER REFERENCE LIMIT (URL) OF TROPONIN, DEFINED THE 99TH PERCENTILE OF cTnI DISTRIBUTION IN A REFERENCE POPULATION, HAS BEEN CONFIRMED THE DECISION THRESHOLD FOR [place] DIAGNOSIS. Performed By: #### P OCGLUC #### [facility] [address] [address] [address] Karmen Mccormick TSHon 03-27-2022 TSH 1.327 uIU/mL Normal 0.358-3.740 [facility] Comment on above: Performed By: #### P OCGLUC #### [facility] [address] [place] [address] Dr. Karmen Mccormick Vital Signs Date Time Vital Sign Value Performing Clinician Faci lity 04-05-2025 11:32-0400 Body height 177.8 cm Adan Pearson DPM Work Phone: [facility] 04-05-2025 11:32-0400 Body mass index (BMI) [Ratio] 29.41 kg/m2 Aadn Pearson DPM Work Phone: [facility] 04-05-2025 11:32-0400 Body weight 92.99 kg Adan Pearson DPM Work Phone: [facility] 04-05-2025 11:32-0400 Respiratory rate 16 /min Adan Pearson DPM Work Phone: [facility] 12-21-2024 10:26-0400 Body height 177.8 cm Lety Rothman MD Work Phone: [facility] 12-21-2024 10:26-0400 Body mass index (BMI) [Ratio] 29.41 kg/m2 Lety Rothman MD Work Phone: [facility] 12-21-2024 10:26-0400 Body weight 92.99 kg Lety Rothman MD Work Phone: [facility] 12-21-2024 10:26-0400 Diastolic blood pressure 66 mm[Hg] Lety Rothman MD Work Phone: [facility] 12-21-2024 10:26-0400 Heart rate 55 /min Lety Rothman MD Work Phone: [facility] 12-21-2024 10:26-0400 Respiratory rate 16 /min Lety Rothman MD Work Phone: [facility] 12-21-2024 10:26-0400 SaO2% (BldA) [Mass fraction] 97 % Lety Rotmhan MD Work Phone: [facility] 12-21-2024 10:26-0400 Systolic blood pressure 124 mm[Hg] Lety Rothman MD Work Phone: [facility] 11-16-2024 13:14-0500 Body height 177.8 cm Adan Pearson DPM Work Phone: [facility] 11-16-2024 13:14-0500 Body mass index (BMI) [Ratio] 30.13 kg/m2 Adan Pearson DPM Work Phone: [facility] 11-16-2024 13:14-0500 Body weight 95.25 kg Adan Pearson DPM Work Phone: [facility] 11-16-2024 13:14-0500 Respiratory rate 18 /min Adan Pearson DPM Work Phone: [facility] 06-14-2024 11:12-0400 Body height 180.3 cm Lety Rothman MD Work Phone: [facility] 06-14-2024 11:12-0400 Body mass index (BMI) [Ratio] 29.15 kg/m2 Lety Rothman MD Work Phone: [facility] 06-14-2024 11:12-0400 Body weight 94.8 kg Lety Rothman MD Work Phone: [facility] 06-14-2024 11:12-0400 Diastolic blood pressure 78 mm[Hg] Lety Rothman MD Work Phone: [facility] 06-14-2024 11:12-0400 Heart rate 56 /min Lety Rothman MD Work Phone: [facility] 06-14-2024 11:12-0400 Respiratory rate 16 /min Lety Rothman MD Work Phone: [facility] 06-14-2024 11:12-0400 Systolic blood pressure 152 mm[Hg] Lety Rothman MD Work Phone: [facility] Healthcare Encounters Encounter Date Encounter Type Care Provider Facility Start: 04-05-2025 End: 04-05-2025 Bamboo flowsmaite Pearson DPM [facility] Start: 04-05-2025 End: 04-05-2025 Bamboo flowsheet Adan Pearson DPM Work Phone: [facility] Start: 04-05-2025 End: 04-05-2025 Office outpatient visit 15 minutes Adan Pearson DPM Work Phone: [facility] Comment on above: Contusion of left fo ot, initial encounter (Primary Dx); Diabetes mellitus due to underlying condition with diabetic polyneuropathy, without long-term current use of insulin (HCC); Pain due to onychomycosis of toenails of both feet Start: 04-05-2025 End: 04-05-2025 ambulatory ADAN PEARSON Not Available Start: 12-25-2024 End: 12-26-2024 Telephone encounter Lety Rothman MD Work Phone: [facility] Comment on above: Med Refill Start: 12-21-2024 End: 12-21-2024 Bamboo flowsheet Lety Rothman MD Work Phone: [facility] Start: 12-21-2024 End: 12-21-2024 Bamboo flowsheet Lety Rothman MD Work Phone: [facility] Start: 12-21-2024 End: 12-21-2024 Office outpatient visit 25 minutes Lety Rothman MD Work Phone: [facility] Comment on above: Type 2 diabetes natalie itus with hyperglycemia, with long-term current use of insulin (CMS/[facility]) (Primary Dx); Primary hypertension ([facility]); Encounter for dietary consultation; Insulin long-term use ([facility]); Vitamin D deficiency; Hyperlipemia, mixed (CMS/[facility]); Hypoglycemia Start: 12-21-2024 End: 12-21-2024 ambulatory LETY ROTHMAN Not Available Start: 11-21-2024 End: 11-21-2024 ambulatory Dav Cardenas Facility:[facility] Start: 11-16-2024 End: 11-16-2024 Office outpatient visit [...] Bamboo flowsheet Lety Rothman MD Work Phone: [facility] Start: 06-14-2024 End: 06-14-2024 Bamboo flowsheet Lety Rothman MD Work Phone: [facility] Start: 06-14-2024 End: 06-14-2024 Office outpatient visit 25 minutes Lety Rothman MD Work Phone: [facility] Comment on above: Hypoglycemia (Primar y Dx); Type 2 diabetes mellitus with hyperglycemia, with long-term current use of insulin ([facility]); Primary hypertension ([facility]); Encounter for dietary consultation; Insulin long-term use ([facility]); Vitamin D deficiency; Hyperlipemia, mixed ([facility]) Start: 06-14-2024 End: 06-14-2024 ambulatory LETY ROTHMAN [...] Evaluation and management of inpatient [facility] Facility:H1 Procedures Date Procedure Procedure Detail Performing Clinician Start: 12-21-2024 Gluc bld gluc mntr d ev cleared fda spec home use Lety Rothman MD Work Phone: Start: 06-14-2024 End: 06-14-2024 Gluc bld gluc mntr dev cleared fda spec home use Lety Rothman MD Work Phone: Start: 03-28-2022 Drainage of Perineum Skin, External Approach [facility] Start: 03-09-2017 Mammography Lety motta MD Work Phone: Plan of Treatment Date Care Activity Detail Author Start: 05-14-2025 Influenza vaccination Influenza Vacc ine (#1) [facility] Start: 04-19-2025 End: 04-19-2025 Patient encounter procedure 04/19/2025 10:50 AM EDT Office Visit [facility] [address] [place] [address] Lety Rothman MD [address] [place] [address] [facility] Start: 04-05-2025 End: 04-05-2025 Patient encounter procedure 04/05/2025 11:50 AM EDT [facility] [address] [facility] [address] [place] [address] Adan Pearson, DEANNA [address] [facility] [address] [place] [address] Diabetes mellitus due to underlying condition with [...] PODIATRY [address] [address] [place] [address] Adan Pearson DPM [address] [facility] [address] [place] [address] [facility] Start: 12-21-2024 End: 12-21-2024 Patient encounter procedure 12/21/2024 10:50 AM EDT Office Visit [facility] [address] [place] [address] Lety Rothman MD [address] [place] [address] Type 2 diabetes mellitus with hyperglycemia, with long-term current use of insulin ([facility]) [facility] Comment on above: Type 2 diabetes natalie itus with hyperglycemia, with long-term current use of insulin ([facility]) Start: 12-06-2024 End: 12-06-2024 Patient encounter procedure 12/06/2024 11:10 AM EDT Office Visit [facility] [address] [place] [address] Lety Rothman MD [address] [place] [address] [facility] Start: 11-16-2024 End: 11-16-2024 Patient encounter procedure 11/16/2024 2:30 PM EST Office Visit [facility] [address] [place] [address] Adan Pearson DPM [address] [facility] [address] [place] [address] Arrived [facility] Comment on above: Arrived Start: 09-27-2024 End: 01-15-2025 Patient encounter procedure 09/27/2024 10:50 AM EST Office Visit [facility] [address] [place] [address] Lety Rothman MD [address] [place] [address] [facility] Start: 08-17-2024 End: 08-17-2024 Patient encounter procedure 08/17/2024 10:45 AM EST Procedure Visit [facility] [address] [place] [id number] Cory Albright DPM [address], [place] [id number] [facility] Start: 06-14-2024 End: 06-14-2025 25-hydroxyvitamin D3 [Mass/volume] in Serum or Plasma Vitamin D 25 hydroxy Total Lab Routine Type 2 diabetes mellitus with hyperglycemia, with long-term current use of insulin ([facility]) Expected: 06/14/2024 (Approximate), Expires: 06/14/2025 [facility] Comment on above: Expected: 06/14/2024 (Approximate), Expires: 06/14/2025 Start: 06-14-2024 End: 06-14-2025 C-peptide C-peptide Lab Routine Type 2 diabetes mellitus with hyperglycemia, with long-term current use of insulin ([facility]) Expected: 06/14/2024 (Approximate), Expires: 06/14/2025 [facility] Work Phone: Comment on above: Expected: 06/14/2024 (Approximate), Expires: 06/14/2025 Start: 06-14-2024 End: 06-14-2025 Lipid 1996 panel - Serum or Plasma Lipid panel Lab Routine Type 2 diabetes mellitus with hyperglycemia, with long-term current use of insulin ([facility]) Expected: 06/14/2024 (Approximate), Expires: 06/14/2025 [facility] Comment on above: Expected: 06/14/2024 (Approximate), Expires: 06/14/2025 Start: 06-14-2024 End: 06-14-2025 Microalbumin/Creatinine panel in random Urine Microalbumin / creatinine urine ratio Lab Routine Type 2 diabetes mellitus with hyperglycemia, with long-term current use of insulin ([facility]) Expected: 06/14/2024 (Approximate), Expires: 06/14/2025 [facility] Comment on above: Expected: 06/14/2024 (Approximate), Expires: 06/14/2025 Start: 06-14-2024 End: 06-14-2025 Renal function panel Renal function panel Lab Routine Type 2 diabetes mellitus with hyperglycemia, with long-term current use of insulin ([facility]) Expected: 06/14/2024 (Approximate), Expires: 06/14/2025 [facility] Comment on above: Expected: 06/14/2024 (Approximate), Expires: 06/14/2025 Start: 06-14-2024 End: 06-14-2024 Patient encounter procedure 06/14/2024 10:40 AM EDT Office Visit [facility] [address] [place] [address] Lety Rothman MD [address] [place] [address] Type 2 diabetes mellitus with hyperglycemia, with long-term current use of insulin ([facility]) [facility] Comment on above: Type 2 diabetes natalie itus with hyperglycemia, with long-term current use of insulin ([facility]) Start: 05-14-2024 Influenza vaccination Influenza Vacc ine (#1) [facility] Start: 06-19-2023 Pneumococcal Vaccine : 65+ Years (2 of 2 - PCV) Pneumococcal Vaccine: 65+ Years (2 of 2 - PCV) [facility] Start: 03-09-2018 Screening for malign ant neoplasm of breast Mammogram [facility] Start: 1955 Screening for malign ant neoplasm of colon [facility] Immunizations Immunization Date Immunization Notes Care Provider Fa cility 06-03-2024 influenza virus vacc ine, unspecified formulation Lety Rothman MD Work Phone: [facility] 01-21-2024 zoster vaccine recombinant A ata Rothman MD Work Phone: [facility] 06-16-2023 ABRYSVO - Respirator y syncytial virus (RSV), vaccine, bivalent, protein subunit RSV prefusion F, diluent reconstituted, 0.5 mL, PF Lety Rothman MD Work Phone: [facility] 06-16-2023 Influenza, High-dose Seasonal, Quadrivalent, Preservative Free Lety Rothman MD Work Phone: [facility] 06-16-2023 SARS-COV-2 (COVID-19 ) vaccine, mRNA, spike protein, LNP, PF, 50 mcg/0.5 mL Lety Rothman MD Work Phone: [facility] 06-16-2023 zoster vaccine recombinant A ata Rothman MD Work Phone: [facility] 06-19-2022 Influenza, High-dose Seasonal, Quadrivalent, Preservative Free Lety Rothman MD Work Phone: [facility] 06-19-2022 pneumococcal polysaccharide vaccine, 23 valent Lety Rothman MD Work Phone: [facility] 06-19-2022 SARS-COV-2 (COVID-19 ) vaccine, mRNA, spike protein, LNP, bivalent, preservative free, 30 mcg/0.3 mL dose, emiliano-sucrose formulation Lety Rothman MD Work Phone: [facility] 05-07-2022 diphtheria, tetanus toxoids and pertussis vaccine Lety Rothman MD Work Phone: [facility] 09-02-2021 Pfizer Purple Cap SARS-CoV-2 Vaccination Lety Rothman MD Work Phone: [facility] 12-10-2020 Pfizer Purple Cap SARS-CoV-2 Vaccination Lety Rothman MD Work Phone: [facility] 11-18-2020 Pfizer Purple Cap SARS-CoV-2 Vaccination Lety Rothman MD Work Phone: [facility] 01-06-2019 tetanus toxoid, redu holley diphtheria toxoid, and acellular pertussis vaccine, adsorbed Lety Rothman MD Work Phone: [facility] 06-29-2017 influenza, injectabl e, quadrivalent, preservative free Lety Rothman MD Work Phone: [facility] 06-17-2015 influenza, seasonal, injectable, preservative free Lety Rothman MD Work Phone: [facility] 09-10-2014 influenza, injectabl e, quadrivalent, contains preservative Lety Rothman MD Work Phone: [facility] 07-22-2010 influenza, seasonal, injectable Lety Rothman MD Work Phone: [facility] Payers Date Payer Category Payer Medicare (Managed Care) [facility] [id number] 2024 Medicare [id number] 2022 Medicare [employer] ADVANTAGE [employer] [id number] 2022-Present [address] [address] [place] [address] [id number] 2020 Medicare [id number] 1959 Medicare [id number] 1955 Unknown [id number] [id number]. 2.593 1953 Unknown [id number] 2.16.840.1.244979.3.579. 2.593 1953 Unknown [id number] 2.16.840.1.890463.3.579. 2.593 1953 Unknown [id number] 2.16.840.1.453407.3.579. 2.593 1953 Unknown [id number] 2.16.840.1.754162.3.579. 2.593 1953 Unknown [id number] 2.16.840.1.515933.3.579. 2.593 1953 Unknown [id number] 2.16.840.1.952946.3.579. 2.593 1953 Unknown [id number] 2.16.840.1.970816.3.579. 2.593 1953 Unknown [id number] 2.16.840.1.636465.3.579. 2.727 1953 Unknown [id number] 2.16.840.1.381150.3.579. 2.1259 1953 Unknown [id number] 2.16.840.1.614529.3.579. 2.1259 1953 Unknown [id number] 2.16.840.1.701271.3.579. 2.1259 1953 Unknown [id number] 2.16.840.1.179615.3.579. 2.1259 1953 Unknown [id number] 2.16.840.1.456313.3.579. 2.1259 Social History Date Type Detail Facility Start: 04-20-2023 Tobacco smoking status MIIS Ex-smoke r [facility] History of tobacco use Current smoker [facility] History of tobacco use Cigarette Smoker [facility] History of tobacco use Passive smoker [facility] Start: 05-29-2024 End: 04-05-2025 Alcoholic beverage intake Ex-drinker (finding) [facility] Start: 04-18-2024 End: 11-16-2024 [facility] Start: 04-18-2024 End: 11-16-[address] [facility] Start: 04-20-2023 Tobacco Comment Last smoked: 1-[address] [facility] Start: 04-20-2023 Alcohol Comment caffeine: 2-3 cups/d ay [facility] Start: 1955 Sex assigned at Not on file N [facility] Medical Equipment Procedure Code Equipment Code [...] [place] instead of [place] my mistake sorry! [facility] 12-25-2024 Miscellaneous Notes Formattin g of this note might be different from the original. Please send zofran to [facility] [place] instead of [place] my mistake sorry! documented in this encounter [facility] 12-25-2024 Telephone encount er Note Pt needs zofran for nausea, accidentally took .5 instead of .25 for first dose of ozempic. Please send to [facility]. Thank you! [facility] 12-25-2024 Miscellaneous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
[2025-06-20] MEDS: CLOPIDOGREL BISULFATE 75 MG TABLET PO (03:12)
[2025-06-20] MEDS: ENOXAPARIN SODIUM 80 MG/0.8 ML SYRINGE SUBQ (03:13)
[2025-06-20 06:16] LABS: Sodium 137 mmol/L (136-145)
[2025-06-20 06:17] LABS: Alanine Aminotransferase 19 U/L (14-59); Albumin Globulin Ratio 0.8; Albumin Level 3.3 g/dL (3.4-5.0); Alkaline Phosphatase 108 U/L (46-116); Anion Gap 18.4; Aspartate Amino Transferase 14 U/L (15-37); Blood Urea Nitrogen 24.0 mg/dL (7.0-18.0); Calcium 9.1 mg/dL (8.5-10.1); Carbon Dioxide 21.0 mmol/L (21.0-32.0); Chloride 102 mmol/L (98-107); Estimated GFR (African America >60 (>=60 mL/min/1.73m^2); Estimated GFR (Non-African Ame >60 (>=60 mL/min/1.73m^2); Globulin 4.1 g/dL; Glucose 204 mg/dL (74-106); Magnesium 2.3 mg/dL (1.8-2.4); Potassium 4.4 mmol/L (3.5-5.1); Total Protein 7.4 g/dL (6.4-8.2)
[2025-06-20 06:18] LABS: Cholesterol 244 mg/dL (<=200); HDL Cholesterol 59 mg/dL (40-60); Triglycerides 117 mg/dL (<=150); VLDL CHOLESTEROL 23.4 mg/dL
--- NOTE | 2025-06-20 07:00 | ECG_ITS ---
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 Measurements Intervals [place] Rate: 68 P: 52 WI: 173 QRS: -45 QRSD: 100 T: 68 QT: 440 QTc: 470 Interpretive Statements SINUS RHYTHM LEFT ANTERIOR FASCICULAR BLOCK [QRS AXIS <= -45, QR IN I, RS IN II] LEFT VENTRICULAR HYPERTROPHY AND ST-T CHANGE [VOLTAGE CRITERIA PLUS ST/T ABNORMALITY] INFERIOR MYOCARDIAL INFARCTION [40+ ms Q WAVE AND/OR ST/T ABNORMALITY IN II/aVF], OF INDETERMINATE AGE Compared to ECG 06/19/2025 21:22:06 Left anterior fascicular block now present ST (T wave) deviation now present Myocardial infarct finding still present Electronically Signed On 06-20-2025 7:58:41 EDT by YAEL ESPINOZA M.D.
[2025-06-20] MEDS: ATORVASTATIN CALCIUM 40 MG TABLET 80 MG PO (08:11)
[2025-06-20] MEDS: ONDANSETRON 4 MG RAPDIS TABLET PO (08:11)
[2025-06-20] MEDS: ISOSORBIDE MONONITRATE 30 MG TAB.ER.24H 60 MG PO (08:11)
[2025-06-20] MEDS: LISINOPRIL 20 MG TABLET PO (08:12)
[2025-06-20] MEDS: ASPIRIN 81 MG TABLET.DR PO (08:12)
[2025-06-20] MEDS: METOPROLOL TARTRATE 25 MG TABLET PO ×2 (08:12→21:33)
[2025-06-20] MEDS: PANTOPRAZOLE SODIUM 40 MG TABLET.DR PO (08:12)
[2025-06-20] MEDS: SENNOSIDES/DOCUSATE SODIUM 1 TAB TABLET PO (08:12)
[2025-06-20] MEDS: INSULIN ASPART 300 UNIT/3 ML PEN SUBQ ×4 (08:15→21:34)
[2025-06-20] MEDS: INSULIN GLARGINE 300 UNIT/3 ML INSULN.PEN 20 UNIT SQ (08:15)
--- NOTE | 2025-06-20 09:49 | DIETREC ---
Recommend 2000 kcal CCD, Heart Healthy diet.
--- NOTE | 2025-06-20 10:13 | PM.HP ---
HPI H&P: HPI History of Present Illness Chief complaint: ELEVATED TROPONIN, VOMITING Narrative: Mrs. Godoy is a 69-year-old female who came in with vomiting, epigastric discomfort, chest pain. No fever or chills. No hematemesis or melena. No shortness of breath. No prior recent episode. Patient reported having heart condition. She does not know what kind of heart condition she has. She follows up with clinical documentation improvement specialist in [place]. She does not know his name. She has diabetes and hypertension otherwise. She denies any prior history of heart attack or blockage. No prior history of stenting. No prior history of heart failure as reported by patient. Opioid HPI Opioid Management Most Recent Pain and Opioid Data: Last Pain Scale 0 Today, 09:17 Last Pain Assessment Today, 03:00 Last ORT Total Score 1 Today, :17 Last ORT Risk Category Low Risk Today, :17 Review of Systems ROS Narrative No diarrhea. No hematemesis or melena. No fever or chills. No shortness of breath. Status of ROS 10 or more systems reviewed and unremarkable except as noted in history and below [facility] Medical History (Updated 06/20/25 @ 10:15 by Nichole Lorenzo MD) Hysterectomy planned Hyperglycemia ?R73.9 - Hyperglycemia, unspecified (ICD-10) Acute UTI ?N39.0 - Urinary tract infection, site not specified (ICD-10) Elevated troponin ?R79.89 - Other specified abnormal findings of blood chemistry (ICD-10) Nausea, vomiting, and diarrhea ?R11.2 - Nausea with vomiting, unspecified (ICD-10) ?R19.7 - Diarrhea, unspecified (ICD-10) Family History (Updated 06/20/25 @ 02:23 by Berta Garcia, MEGHANN) Father Family history of CHF (congestive heart failure) Family history of diabetes mellitus Sister Family history of cancer Brother Family history of cancer Mother Family history of hypertension Social History (Updated 06/20/25 @ 02:24 by Berta Garcia RN) Within the past year, how often did you have a drink containing alcohol: never Score interpretation: A score less than 3 is consistent with normal alcohol consumption. Smoking status: Never smoker Second hand tobacco smoke exposure: No Non-prescribed substance use: denies use Previous occupational history: retired Highest level of school completed/degree received: high school graduate Are you now , , , , never or living with a partner: In a typical week, how many times do you talk on the telephone with family, friends, or neighbors: 3 or more times per week How often do you get together with friends or relatives: 3 or more times per week Little interest or pleasure in doing things: not at all Feeling down, depressed, or hopeless: not at all Meds Home Medications and Allergies Home Medications ?Medication ?Instructions ?Recorded ?Confirmed ?Type atorvastatin 80 mg tablet 80 mg PO DAILY 06/28/23 06/20/25 History buspirone 15 mg tablet 15 mg PO BID 06/28/23 06/20/25 History dapagliflozin propanediol 10 mg 10 mg PO DAILY 06/28/23 06/20/25 History tablet (Farxiga) fluoxetine 40 mg capsule 40 mg PO DAILY 06/28/23 06/20/25 History insulin glargine 100 unit/mL (3 30 unit subcut BEDTIME 06/28/23 06/20/25 History mL) subcutaneous pen (Lantus Solostar U-100 Insulin) metoprolol succinate 50 mg 50 mg PO DAILY 06/28/23 06/20/25 History tablet,extended release 24 hr nitroglycerin 0.4 mg sublingual 0.4 mg sublingual Q5M PRN chest 06/28/23 06/20/25 History tablet pain pantoprazole 40 mg tablet,delayed 40 mg PO DAILY 06/28/23 06/20/25 History release prazosin 2 mg capsule 2 mg PO .q hs 06/28/23 06/20/25 History aspirin 81 mg capsule 81 mg PO DAILY #30 caps 01/02/25 06/20/25 Rx gabapentin 300 mg capsule 300 mg PO TID 01/02/25 06/20/25 History insulin lispro 100 unit/mL 10 unit subcut TIDWM 01/02/25 06/20/25 History subcutaneous pen lisinopril 20 mg tablet 20 mg PO DAILY 01/02/25 06/20/25 History bupropion HCl 200 mg tablet,12 hr 200 mg PO QAM 06/20/25 06/20/25 History sustained-release isosorbide mononitrate 30 mg 60 mg PO BID 06/20/25 06/20/25 History tablet,extended release 24 hr Allergies Allergy/AdvReac Type Severity Reaction Status Date / Time No Known Drug Allergies Allergy Verified 06/19/25 18:42 Exam Narrative Exam Narrative: [pt is awake and alert. oriented to place, time and person HEENT: [place] conjunctiva and NL buccal mucosa Neck: Supple, no tenderness Endocrine: No Thyromegaly. Vascular: No JVD or carotid bruit. Lymphatic: No cervical lymphadenopathy. Chest: CTA no DTP. Heart RRR, no extra sound or murmur. Abd: Soft, minimal tenderness in the epigastric and periumbilical, no rigidity no rebound and no rigidity. Increase abd girth therefore clinically I could not exclude the possibility of intra abd mass or organomegaly. LE: No cyanosis or clubbing, no varices or edema. Neuro: A A O. Nl speech, comprehension and attention. Nl and symetrical motor and tone examination through out. []] Constitutional Vital Signs, click to edit/add: Last Vital Signs Temp 98.5 F 06/20/25 07:55 Pulse 67 06/20/25 10:00 Resp 18 06/20/25 07:55 BP 134/68 06/20/25 09:17 Pulse Ox 96 06/20/25 07:55 O2 Del Method Room Air 06/20/25 07:55 Results Labs Labs: Short CBC 06/19/25 Range/Units 19:54 WBC 11.3 H (4.0-11.0) 10^3/uL Hgb 14.6 (12.0-16.0) g/dL Hct 43.6 (36.0-48.0) % Plt Count 317 (150-450) 10^3/uL BMP 06/19/25 06/20/25 19:54 05:37 Sodium 137 137 Potassium 4.4 4.4 Chloride 100 102 Carbon Dioxide 23.2 21.0 BUN 29.0 H 24.0 H Creatinine 0.86 0.77 Glucose 254 H 204 H Calcium 9.9 9.1 Liver Function 06/19/25 06/20/25 Range/Units 19:54 05:37 Total Bilirubin 0.4 0.4 (0.2-1.0) mg/dL AST 9 L 14 L (15-37) U/L ALT 19 19 (14-59) U/L Alkaline Phosphatase 108 108 (46-116) U/L Albumin 3.5 3.3 L (3.4-5.0) g/dL Assessment and Plan Assessment and Plan (1) Vomiting: (2) Elevated troponin: (3) Chest pain: Plan Chest pain, substernal. Could be related to GI Her troponin is positive. Patient has chronic elevation of the troponin. EKG does not show ST elevation or depression. No prior history of CAD or stenting. I do not suspect patient is having ACS . Patient had stress test 5 months ago which came back negative for ischemia. Patient had an echocardiogram 6 months ago which came back positive for hypertrophic left ventricle suspicious for hypertrophic obstructive cardiomyopathy Her chronic elevation of the troponin could be related to hypertrophic cardiomyopathy. Patient is on Imdur. Patient had received dose of Plavix and Lovenox. Continue aspirin. Cardiac consultation. Defer further needed diagnostic and therapeutic intervention related to her cardiovascular issues to cardiovascular disease. Patient may need to be on calcium brady for hypertrophic cardiomyopathy. Vomiting Improved since yesterday. CAT scan of the abdomen showed he had a hernia otherwise no acute intra-abdominal process. No fever or chills. No diarrhea to suggest enteritis. No acidosis. Normal LFTs. Normal lipase. Normal kidney function. Broad differential diagnosis including but not limited to gastritis, gastroparesis, side effect of medication such as GLP-1, SSRI SNRI combination others not listed Reduce the dose of SSRI and SNRI Continue symptomatic management at this time. If her vomiting persist patient may qualify to have an EGD and/or gastric emptying study. Diabetes. Mild hyperglycemia. No DKA Resume long-acting and sliding scale coverage. Continue to titrate to keep blood sugar between 125 and 180. Hypertension Continue lisinopril and beta-brady. Patient may need to be on calcium brady for suspected hypertrophic cardiomyopathy. Discontinue alpha-brady. Pending for cardiac evaluation recommendation. Chronic, subacute medical conditions not listed above, abnormal labs and imaging. These would need to be addressed. Could be addressed later on or in the outpatient setting by PCP collaboration with other needed outpatient providers when time and condition are appropriate.
--- NOTE | 2025-06-20 10:13 | CM.NOTE ---
Rounds made with Dr. Lorenzo, discussed with pt reason for admission and plan of care. Pt placed in observation status.
--- NOTE | 2025-06-20 11:38 | SWNOTE1 ---
Medicare Outpatient Observation Notice reviewed and discussed with patient. Pt. verbalized understanding and signed the form. Original given to patient and copy placed in patient?s chart.
--- NOTE | 2025-06-20 11:39 | SWNOTE1 ---
SW met with pt to discuss dc needs. Pt lives at home with her . She voiced she has not been feeling well for the last few days, nauseous and has been vomiting, and not been able to have bowel movement. Pt does usually use a walker at home. She has a wheelchair as well that she uses when they leave the home. Pt stated she has not really been able to eat because it all comes back up. She feels weak. Pt does not have any services coming in at this time. Pt does plan on returning home at discharge. Pt denies any needs at this time.
[2025-06-20] MEDS: GABAPENTIN 300 MG CAPSULE PO ×2 (13:49→21:32)
[2025-06-20] MEDS: BUPROPION HCL 100 MG SR TABLET 12H PO (13:49)
[2025-06-20] MEDS: DICYCLOMINE HCL 10 MG CAPSULE PO ×2 (13:49→21:32)
[2025-06-20] MEDS: BUSPIRONE HCL 10 MG TABLET 5 MG PO ×2 (13:49→21:32)
--- OUTSIDE RECORDS SUMMARY | 2025-06-20 14:00 | XMS_ITS | CCD ---
Author Organization [facility] Care Team Providers Care Registered Nurse Obstetrics Name Role Phone [facility] Primary Care Unavailable HOY ., DR DEXTER [...] Consulting Unavailable PACHECO, DR GOYAL Attending Unavailable HSEFFIELD, YESSICA Primary Care Unavailable EUFEMIA LOPEZ Consulting [...] source) Acetaminophen / oxyCODONE Drug Allergy 1 [facility] (14 sources) Acetaminophen / oxyCODONE Drug Allergy 3 GI intolerance [facility] (14 sources) Dextromethorphan / guaiFENesin Drug Allergy 1 [facility] (14 sources) guaiFENesin Drug Allergy 3 [facility] Medications Current Medications Medication Drug Class(es) Dates Sig (Normalized) Sig (Original) acetaminophen 325 mg / HYDROcodone bitartrate 7.5 mg oral tablet (14 sources) Opioid Agonist HYDROcodone-acet ami nophen ([place]) 7.5-325 MG tablet Active [id number] 200 actuat albuterol 0.09 mg/actuat metered dose [...] hyperglycemia, with long-term current use of insulin ([facility]) Inject 4 Units under the skin [...] (14 sources) Polyene Antifungal Start: nystatin (Mycostatin) [id number] UNIT/GM powder Apply 2-3 application topically if needed for rash 01/06/2024 Active ondansetron 4 mg oral tablet (13 sources) Serotonin-3 Receptor Antagonist Start: 025 End: take 1 tablet by mouth every eight hours for nausea ondansetron (Zofran) 4 MG tablet Indications: Type 2 diabetes mellitus with hyperglycemia, with long-term current use of insulin ([facility]) Take 1 tablet (4 mg) by mouth [...] or split. . 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] Onset: 11-26-2022 Episodic Other aftercare (1 source) Other usp (current) drug therapy; Translations: [OTH SERVICE DESK SPECIALIST CURRENT DRUG THERAPY] Onset: 11-26-2022 Episodic Other aftercare (1 source) [facility] (current) use of aspirin; Translations: [SERVICE DESK SPECIALIST CURRENT USE OF ASPIRIN] Onset: 11-26-2022 Episodic [...] on 12-21-2024 Glucose Blood, POC 432 mg/dL [facility] - Hematology and Cell countson 12-21-2024 HbA1c (Bld) [Mass fraction] 12.3 % [facility] No Panel InformationOrdered By: Edna Lloyd on 12-21-2024 [facility] Provider Letteron 11-15-2024 Provider Letter Provider Letter November 15, 2024 MORELIA GODOY [address] [place] [address] [address] [place] [address] : 1955 Dear _ , We have [...] attention to this matter. Sincerely, Family Medicine [address] [address] [address] [phone] Normal [facility] Glucose (Bld) [Mass/Vol]on Glucose Blood, POC 520 mg/dL [facility] HbA1c (Bld) [Mass fraction]o n 06-14-2024 [facility] - Hematology and Cell countson 06-14-2024 HbA1c (Bld) [Mass fraction] [facility] Covid-19 PCR (CVDTBH)on 11-11 SARS-CoV-2 (COVID-19) RNA IRVIN+probe Ql (Unsp spec) Not detected Normal NOT DETECTED [facility] Comment on above: Result Comment: [...] for this test is supported by the [place] of Health and Human Service's declaration that [...] used). Performed By: #### P OCGLUC #### [facility] [address] [place] [address] Dr. Karmen Mccormick INFLUENZA A AND B [facility] 11-25 [facility] SEE BELOW Normal [facility] Comment on above: Result Comment: Nega tive for Flu A protein angiten. Infection due to Flu A cannot be ruled out. Flu A angiten in the sample may be below the detection limit of the test. Performed By: #### P OCGLUC #### [facility] [address] [place] [address] Dr. Karmen [facility]ccorm[facility] Normal [facility] Comment on above: Result Comment: Nega tive for Flu B protein antigen. Infection due to Flu B cannot be ruled out. Flu B antigen in the sample may be below the detection limit of the test. Performed By: #### P OCGLUC #### [facility] [address] [place] [address] Dr. Karmen Mccormick INFLUENZA A AG Negative Normal NEGATIVE SEE COMMENT [facility] Comment on above: Performed By: #### P OCGLUC #### [facility] [address] [place] [address] Dr. Karmen Mccormick INFLUENZA B AG Negative Normal NEGATIVE SEE COMMENT [facility] Comment on above: Performed By: #### P OCGLUC #### [facility] [address] [place] [address] Dr. Karmen Mccormick XR CHEST 2 Von [...] by: JANICE CAMP Date: 2022-11-25 17:31 Normal [facility] XR FOOT RT MIN 3 VIEWSon [...] by: EUFEMIA LOPEZ Date: 2022-09-09 09:54 Normal [facility] OCC BLD IMMUNO SCREENon 04-15 OCCULT BLOOD Negative Normal NEGATIVE [facility] Comment on above: Performed By: #### B MP #### [facility] [address] [address] [address] Karmen Mccormick POINT OF CARE GLUCOSEon 04-15 Glucose [Mass/Vol] 99 mg/dL Normal 74-106 [facility] Comment on above: Performed By: #### P OCGLUC #### [facility] [address] [address] [address] Karmen Mccormick POINT OF CARE GLUCOSEon 04-14 Glucose [Mass/Vol] 139 mg/dL Critically high 74-106 [facility] Comment on above: Performed By: #### C VDTBH #### [facility] [address] [address] [address] Karmen Mccormick Glucose [Mass/Vol] 183 mg/dL Critically high -106 [facility] Comment on above: Performed By: #### P OCGLUC #### [facility] [address] [address] [address] Karmen Mccormick Glucose [Mass/Vol] 217 mg/dL Critically high -106 [facility] Comment on above: Performed By: #### P OCGLUC #### [facility] [address] [address] [address] Karmen Mccormcik Glucose [Mass/Vol] 108 mg/dL Critically high [facility]106 [facility] Comment on above: Performed By: #### C VDTBH #### [facility] [address] [place] [address] Dr. Karmen Mcocrmick CULTURE URINEon 05-10-2022 CULTURE URINE Isolate 1 [...] F Trimethoprim/Sulfam ethoxazole <=20 S F Normal [facility] Comment on above: Performed By: #### P OCGLUC #### [facility] [address] [place] [address] Dr. Karmen Mccormick POINT OF CARE GLUCOSEon 04-14 Glucose [Mass/Vol] 194 mg/dL Critically high [address] [place] [address] Comment on above: Performed By: #### P OCGLUC #### [facility] [address] [place] [address] Dr. Karmen Mccormick Glucose [Mass/Vol] 135 mg/dL Critically high 74-106 [facility] Comment on above: Performed By: #### C BC #### [facility] [address] [address] [address] Karmen Mccormick Glucose [Mass/Vol] 208 mg/dL Critically high 74-106 [facility] Comment on above: Performed By: #### P OCGLUC #### [facility] [address] [address] [address] Karmen Mccormick Glucose [Mass/Vol] 79 mg/dL Normal 74-106 [facility] Comment on above: Performed By: #### P OCGLUC #### [facility] [address] [address] [address] Karmen Mccormick IRON AND TIBCon 05-09-2022 % SATURATION 9.9 % Normal [facility] Comment on above: Performed By: #### C BC #### [facility] [address] [address] [address] Karmen Mccormick Iron [Mass/Vol] 25.0 ug/dL Critically low 50.0-170.0 [facility] Comment on above: Performed By: #### C BC #### [facility] [address] [address] [address] Karmen Mccormick TIBC DIRECT 253.0 ug/dL Normal 250.0-450.0 [facility] Comment on above: Performed By: #### C BC #### [facility] [address] [address] [address] Karmen Mccormick POINT OF CARE GLUCOSEon 04-14 Glucose [Mass/Vol] 197 mg/dL Critically high -106 [facility] Comment on above: Performed By: #### P OCGLUC #### [facility] [address] [address] [address] Karmen Mccormick Glucose [Mass/Vol] 119 mg/dL Critically high 74-106 [facility] Comment on above: Performed By: #### C VDTBH #### [facility] [address] [address] [address] Karmen Mccormick Glucose [Mass/Vol] 176 mg/dL Critically high 74-106 [facility] Comment on above: Performed By: #### P OCGLUC #### [facility] [address] [place] [address] Dr. Karmen Mccormick Glucose [Mass/Vol] 118 mg/dL Critically high 74-106 [facility] Comment on above: Performed By: #### P OCGLUC #### [facility] [address] [place] [address] Dr. Karmen Mccormick VIT B12 AND FOLATEon 022 Cobalamin (Vitamin B12) [Mass/Vol] 613.0 pg/mL Normal 193.0-986.0 [facility] Comment on above: Performed By: #### P OCGLUC #### [facility] [address] [place] [address] Dr. Karmen Mccormick FOLATE 17.90 ng/mL Normal 8.60-58.90 [facility] Comment on above: Performed By: #### P OCGLUC #### [facility] [address] [place] [address] Dr. Karmen Mccormick CBC AUTO DIFFon 05-08-2022 BASO # 0.0 103/ul Normal 0.0-0.1 [facility] Comment on above: Performed By: #### P OCGLUC #### [facility] [address] [place] [address] Dr. Karmen Mccormick Basophils/100 WBC (Bld) 0.4 % Normal 0.2-2.0 [facility] Comment on above: Performed By: #### P OCGLUC #### [facility] [address] [place] [address] Dr. Karmen Mccormick EO # 0.2 103/ul Normal 0.0-0.7 [facility] Comment on above: Performed By: #### P OCGLUC #### [facility] [address] [place] [address] Dr. Karmen Mccormick Eosinophils/100 WBC (Bld) 2.3 % Normal 0.9-7.0 [facility] Comment on above: Performed By: #### P OCGLUC #### [facility] [address] [address] [address] Karmen Mccormick Erythrocyte distribution width (RBC) [Ratio] 13.6 % Normal 11.0-15.0 [facility] Comment on above: Performed By: #### P OCGLUC #### [facility] [address] [place] [address] Dr. Karmen Mccormick Hematocrit (Bld) [Volume fraction] 33.6 % Critically low 36.0-48.0 [facility] Comment on above: Performed By: #### P OCGLUC #### [facility] [address] [place] [address] Dr. Karmen Mccormick Hemoglobin (Bld) [Mass/Vol] 10.5 g/dL Critically low 12.0-16.0 [facility] Comment on above: Performed By: #### P OCGLUC #### [facility] [address] [place] [address] Dr. Karmen Mccormick IG # 0.03 10e3/ul Normal 0.00-0.03 [facility] Comment on above: Performed By: #### P OCGLUC #### [facility] [address] [place] [address] Dr. Karmen Mccormick IG % 0.3 % Normal 0.0-0.5 [facility] Comment on above: Performed By: #### P OCGLUC #### [facility] [address] [place] [address] Dr. Karmen Mccormick LYMPH # 1.6 103/ul Normal 1.2-3.8 [facility] Comment on above: Performed By: #### P OCGLUC #### [facility] [address] [place] [address] Dr. Karmen Mccormick Lymphocytes/100 WBC (Bld) 17.1 % Critically low 20.5-60.0 [facility] Comment on above: Performed By: #### P OCGLUC #### [facility] [address] [place] [address] Dr. Karmen Mccormick MANUAL DIFF REQ NO Normal [facility] Comment on above: Performed By: #### P OCGLUC #### [facility] [address] [address] [address] Karmen Mccormick MCH (RBC) [Entitic mass] 29.1 pg Normal 26.7-34.0 [facility] Comment on above: Performed By: #### P OCGLUC #### [facility] [address] [place] [address] Dr. Karmen Mccormick MCHC (RBC) [Mass/Vol] 31.3 g/dL Normal 29.9-35.2 [facility] Comment on above: Performed By: #### P OCGLUC #### [facility] [address] [place] [address] Dr. Karmen Mccormick MCV (RBC) [Entitic vol] 93.1 fL Normal 81.0-99.0 [facility] Comment on above: Performed By: #### P OCGLUC #### [facility] [address] [place] [address] Dr. Karmen Mccormick MONO # 0.6 103/ul Normal 0.3-0.8 [facility] Comment on above: Performed By: #### P OCGLUC #### [facility] [address] [place] [address] Dr. Karmen Mccormick Monocytes/100 WBC (Bld) 6.4 % Normal 1.7-12.0 [facility] Comment on above: Performed By: #### P OCGLUC #### [facility] [address] [place] [address] Dr. Karmen Mccormick NEUT # 6.8 103/ul Critically high 1.4-6.5 [facility] Comment on above: Performed By: #### P OCGLUC #### [facility] [address] [place] [address] Dr. Karmen Mccormick Neutrophils/100 WBC (Bld) 73.5 % Normal 43.0-75.0 [facility] Comment on above: Performed By: #### P OCGLUC #### [facility] [address] [place] [address] Dr. Karmen Mccormick Platelet mean volume (Bld) [Entitic vol] 10.0 fL Normal 9.5-13.5 [facility] Comment on above: Performed By: #### P OCGLUC #### [facility] [address] [address] [address] Karmen Mccormick PLT 223 103/ul Normal 150-450 [facility] Comment on above: Performed By: #### P OCGLUC #### [facility] [address] [address] [address] Karmen Mccormick RBC 3.61 106/ul Critically low 4.20-5.40 [facility] Comment on above: Performed By: #### P OCGLUC #### [facility] [address] [address] [address] Karmen Mccormick WBC 9.3 103/ul Normal 4.0-11.0 [facility] Comment on above: Performed By: #### P OCGLUC #### [facility] [address] [address] [address] Karmen Mccormick POINT OF CARE GLUCOSEon 04-14 Glucose [Mass/Vol] 163 mg/dL Critically high 74-106 [facility] Comment on above: Performed By: #### P OCGLUC #### [facility] [address] [address] [address] Karmen Mccormick Glucose [Mass/Vol] 87 mg/dL Normal 74-106 [facility] Comment on above: Performed By: #### P OCGLUC #### [facility] [address] [place] [address] Dr. Karmen Mccormick Glucose [Mass/Vol] 183 mg/dL Critically high 74-106 [facility] Comment on above: Performed By: #### C BC #### [facility] [address] [address] [address] Karmen Mccormick Glucose [Mass/Vol] 146 mg/dL Critically high 74-106 [facility] Comment on above: Performed By: #### P OCGLUC #### [facility] [address] [place] [address] Dr. Karmen Mccormick PROF CHEM 8 (BAS METB)on Anion gap [Moles/Vol] 11.7 mmol/L Normal [facility] Comment on above: Performed By: #### C BC #### [facility] [address] [address] [address] Karmen Mccormick Calcium [Mass/Vol] 8.4 mg/dL Critically low 8.5-10.1 [facility] Comment on above: Performed By: #### C BC #### [facility] [address] [address] [address] Karmen Mccormick Chloride [Moles/Vol] 104 mmol/L Normal 98-107 [facility] Comment on above: Performed By: #### C BC #### [facility] [address] [address] [address] Karmen Mccormick CO2 [Moles/Vol] 25.2 mmol/L Normal 21.0-32.0 [facility] Comment on above: Performed By: #### C BC #### [facility] [address] [place] [address] Dr. Karmen Mccormick Creatinine [Mass/Vol] 0.82 mg/dL Normal 0.55-1.02 [facility] Comment on above: Performed By: #### C BC #### [facility] [address] [place] [address] Dr. Karmen Mccormick EGFR-AF FIJIAN >60 Normal >=60 [facility] Comment on above: Performed By: #### C BC #### [facility] [address] [place] [address] Dr. Kamren Mccormick EGFR-NON AF FIJIAN >60 Normal >=60 [facility] Comment on above: Performed By: #### C BC #### [facility] [address] [place] [address] Dr. Karmen Mccormick Glucose [Mass/Vol] 175 mg/dL Critically high 74-106 [facility] Comment on above: Performed By: #### C BC #### [facility] [address] [place] [address] Dr. Karmen Mccormick Potassium [Moles/Vol] 4.9 mmol/L Normal 3.5-5.1 [facility] Comment on above: Performed By: #### C BC #### [facility] [address] [address] [address] Karmen Mccormick Sodium [Moles/Vol] 136 mmol/L Normal 136-145 [facility] Comment on above: Performed By: #### C BC #### [facility] [address] [place] [address] Dr. Karmen Mccormick Urea nitrogen [Mass/Vol] 25.0 mg/dL Critically high 7.0-18.0 [facility] Comment on above: Performed By: #### C BC #### [facility] [address] [place] [address] Dr. Karmen Mccormick Urea nitrogen/Creatinine [Mass ratio] 30.5 mg/mg Normal [facility] Comment on above: Performed By: #### C BC #### [facility] [address] [place] [address] Dr. Karmen Mccormick UA RANDOM W/MICROSCOPICon BACTERIA SMALL Abnormal NONE SEEN [facility] Comment on above: Performed By: #### B MP #### [facility] [address] [place] [address] Dr. Karmen Mccormick Bilirubin Ql (U) Negative Normal NEGATIVE [facility] Comment on above: Performed By: #### B MP #### [facility] [address] [place] [address] Dr. Karmen Mccormick CAST NONE SEEN Normal NONE [facility] Comment on above: Performed By: #### B MP #### [facility] [address] [place] [address] Dr. Karmen Mccormick Clarity (U) CLEAR Normal CLEAR [facility] Comment on above: Performed By: #### B MP #### [facility] [address] [place] [address] Dr. Karmen Mccormick Color (U) LT. YELLOW Normal YELLOW [facility] Comment on above: Performed By: #### B MP #### [facility] [address] [place] [address] Dr. Karmen Mccormick Crystals LM Nom (Urine sed) NONE SEEN Normal NONE SEEN [facility] Comment on above: Performed By: #### B MP #### [facility] [address] [place] [address] Dr. Karmen Mccormick Epithelial cells LM Ql (Urine sed) RARE Normal NONE SEEN /RARE [facility] Comment on above: Performed By: #### B MP #### [facility] [address] [address] [address] Karmen Mccormick Glucose Ql (U) >1000 Abnormal NEGATIVE [facility] Comment on above: Performed By: #### B MP #### [facility] [address] [address] [address] Karmen Mccormick Hemoglobin Ql (U) MODERATE Abnormal NEGATIVE [facility] Comment on above: Performed By: #### B MP #### [facility] [address] [address] [address] Karmen Mccormick Ketones Ql (U) Negative Normal NEGATIVE [facility] Comment on above: Performed By: #### B MP #### [facility] [address] [place] [address] Dr. Karmen Mccormick LEUKOCYTES TRACE Abnormal NEGATIVE [facility] Comment on above: Performed By: #### B MP #### [facility] [address] [address] [address] Karmen Mccormick MUCOUS NONE SEEN Normal NONE SEEN [facility] Comment on above: Performed By: #### B MP #### [facility] [address] [place] [address] Dr. Karmen Mccormick Nitrite Ql (U) Positive Abnormal NEGATIVE [facility] Comment on above: Performed By: #### B MP #### [facility] [address] [address] [address] Karmen Mccormick pH (U) 6.0 [pH] Normal 5-9 [facility] Comment on above: Performed By: #### B MP #### [facility] [address] [place] [address] Dr. Karmen Mccormick RBC 10-20 Abnormal 0-2 [facility] Comment on above: Performed By: #### B MP #### [facility] [address] [place] [address] Dr. Karmen Mccormick SPEC GRAVITY 1.020 Normal 1.005-<=1.025 [facility] Comment on above: Performed By: #### B MP #### [facility] [address] [place] [address] Dr. Karmen Mccormick UA PROTEIN TRACE Normal NEGATIVE/ TRACE [facility] Comment on above: Performed By: #### B MP #### [facility] [address] [place] [address] Dr. Karmen Mccormick Urobilinogen Qn (U) 0.2 {Rajeev'U}/dL Normal 0.2 - 1. 0 [facility] Comment on above: Performed By: #### B MP #### [facility] [address] [place] [address] Dr. Karmen Mccormick WBC 5-10 Abnormal NONE SEEN [facility] Comment on above: Performed By: #### B MP #### [facility] [address] [place] [address] Dr. Karmen Mccormick CBC AUTO DIFFon 05-07-2022 BASO # 0.1 103/ul Normal 0.0-0.1 [facility] Comment on above: Performed By: #### A CETON #### [facility] [address] [place] [address] Dr. Karmen Mccormick Basophils/100 WBC (Bld) 0.5 % Normal 0.2-2.0 [facility] Comment on above: Performed By: #### A CETON #### [facility] [address] [place] [address] Dr. Karmen Mccormick EO # 0.2 103/ul Normal 0.0-0.7 [facility] Comment on above: Performed By: #### A CETON #### [facility] [address] [place] [address] Dr. Karmen Mccormick Eosinophils/100 WBC (Bld) 1.6 % Normal 0.9-7.0 [facility] Comment on above: Performed By: #### A CETON #### [facility] [address] [place] [address] Dr. Kamren Mccormick Erythrocyte distribution width (RBC) [Ratio] 13.4 % Normal 11.0-15.0 [facility] Comment on above: Performed By: #### A CETON #### [facility] [address] [address] [address] Karmen Mccormick Hematocrit (Bld) [Volume fraction] 38.0 % Normal 36.0-48.0 [facility] Comment on above: Performed By: #### A CETON #### [facility] [address] [place] [address] Dr. Karmen Mccormick Hemoglobin (Bld) [Mass/Vol] 12.3 g/dL Normal 12.0-16.0 [facility] Comment on above: Performed By: #### A CETON #### [facility] [address] [address] [address] Karmen Mccormick IG # 0.06 10e3/ul Critically high 0.00-0.[address] [facility] Comment on above: Performed By: #### A CETON #### [facility] [address] [place] [address] Dr. Karmen Mccormick IG % 0.5 % Normal 0.0-0.5 [facility] Comment on above: Performed By: #### A CETON #### [facility] [address] [address] [address] Karmen Mccormick LYMPH # 1.5 103/ul Normal 1.2-3.8 [facility] Comment on above: Performed By: #### A CETON #### [facility] [address] [place] [address] Dr. Karmen Mccormick Lymphocytes/100 WBC (Bld) 12.0 % Critically low 20.5-60.0 [facility] Comment on above: Performed By: #### A CETON #### [facility] [address] [place] [address] Dr. Karmen Mccormick MANUAL DIFF REQ NO Normal [facility] Comment on above: Performed By: #### A CETON #### [facility] [address] [place] [address] Dr. Karmen Mccormick MCH (RBC) [Entitic mass] 29.6 pg Normal 26.7-34.0 [facility] Comment on above: Performed By: #### A CETON #### [facility] [address] [address] [address] Karmen Mccormick MCHC (RBC) [Mass/Vol] 32.4 g/dL Normal 29.9-35.2 [facility] Comment on above: Performed By: #### A CETON #### [facility] [address] [address] [address] Karmen Mccormick MCV (RBC) [Entitic vol] 91.6 fL Normal 81.0-99.0 [facility] Comment on above: Performed By: #### A CETON #### [facility] [address] [place] [address] Dr. Karmen Mccormick MONO # 0.7 103/ul Normal 0.3-0.8 [facility] Comment on above: Performed By: #### A CETON #### [facility] [address] [place] [address] Dr. Karmen Mccormick Monocytes/100 WBC (Bld) 5.1 % Normal 1.7-12.0 [facility] Comment on above: Performed By: #### A CETON #### [facility] [address] [place] [address] Dr. Karmen Mccormick NEUT # 10.3 103/ul Critically high 1.4-6.5 [facility] Comment on above: Performed By: #### A CETON #### [facility] [address] [place] [address] Dr. Karmen Mccormick Neutrophils/100 WBC (Bld) 80.3 % Critically high 43.0-75.0 [facility] Comment on above: Performed By: #### A CETON #### [facility] [address] [address] [address] Karmen Mccormick Platelet mean volume (Bld) [Entitic vol] 10.0 fL Normal 9.5-13.5 [facility] Comment on above: Performed By: #### A CETON #### [facility] [address] [place] [address] Dr. Karmen Mccormick PLT 280 103/ul Normal 150-450 [facility] Comment on above: Performed By: #### A CETON #### [facility] [address] [place], [place] [address] Dr. Karmen Mccormick RBC 4.15 106/ul Critically low 4.20-5.40 [facility] Comment on above: Performed By: #### A CETON #### [facility] [address] [place], [place] [address] Dr. Karmen Mccormick WBC 12.8 103/ul Critically high 4.0-11.0 [facility] Comment on above: Performed By: #### A CETON #### [facility] [address] [place], [place] [address] CSPINE WO CONon CT CSPINE WO [...] TEJAS CHRISTOPHER Date: 2022-05-07 14:44 Normal [facility] CT HEAD WO CONon 05-07-2022 [...] TEJAS CHRISTOPHER Date: 2022-05-07 14:35 Normal [facility] Covid-19 PCR (CVDTBH)on 04-14 SARS-CoV-2 (COVID-19) RNA IRVIN+probe Ql (Unsp spec) Not detected Normal NOT DETECTED [facility] Comment on above: Result Comment: [...] for this test is supported by the [place] of Health and Human Service's declaration that [...] used). Performed By: #### A CETON #### [facility] [address] [place] [address] Dr. Karmen Mccormick POINT OF CARE GLUCOSEon 04-14 Glucose [Mass/Vol] 167 mg/dL Critically high 74-106 [facility] Comment on above: Performed By: #### C VDTBH #### [facility] [address] [place] [address] Dr. Karmen Mccormick Glucose [Mass/Vol] 207 mg/dL Critically high 74-106 [facility] Comment on above: Performed By: #### B MP #### [facility] [address] [place] [address] Dr. Karmen Mccormick PROF CHEM 8 (BAS METB)on Anion gap [Moles/Vol] 12.7 mmol/L Normal [facility] Comment on above: Performed By: #### P OCGLUC #### [facility] [address] [place] [address] Dr. Karmen Mccormick Calcium [Mass/Vol] 8.9 mg/dL Normal 8.5-10.1 [facility] Comment on above: Performed By: #### P OCGLUC #### [facility] [address] [place] [address] Dr. Karmen Mccormick Chloride [Moles/Vol] 104 mmol/L Normal 98-107 [facility] Comment on above: Performed By: #### P OCGLUC #### [facility] [address] [place] [address] Dr. Karmen Mccormick CO2 [Moles/Vol] 26.5 mmol/L Normal 21.0-32.0 [facility] Comment on above: Performed By: #### P OCGLUC #### [facility] [address] [place] [address] Dr. Karmen Mccormick Creatinine [Mass/Vol] 0.95 mg/dL Normal 0.55-1.02 [facility] Comment on above: Performed By: #### P OCGLUC #### [facility] [address] [place] [address] Dr. Karmen Mccormick EGFR-AF FIJIAN >60 Normal >=60 [facility] Comment on above: Performed By: #### P OCGLUC #### [facility] [address] [place] [address] Dr. Karmen Mccormick EGFR-NON AF FIJIAN 58 mL/min/1.73m2 Critically low >=60 [facility] Comment on above: Performed By: #### P OCGLUC #### [facility] [address] [address] [address] Karmen Mccormick Glucose [Mass/Vol] 245 mg/dL Critically high 74-106 [facility] Comment on above: Performed By: #### P OCGLUC #### [facility] [address] [address] [address] Karmen Mccormick Potassium [Moles/Vol] 5.2 mmol/L Critically high 3.5-5.1 [facility] Comment on above: Performed By: #### P OCGLUC #### [facility] [address] [address] [address] Karmen Mccormick Sodium [Moles/Vol] 138 mmol/L Normal 136-145 [facility] Comment on above: Performed By: #### P OCGLUC #### [facility] [address] [address] [address] Karmen Mccormick Urea nitrogen [Mass/Vol] 24.0 mg/dL Critically high 7.0-18.0 [facility] Comment on above: Performed By: #### P OCGLUC #### [facility] [address] [address] [address] Karmen Mccormick Urea nitrogen/Creatinine [Mass ratio] 25.3 mg/mg Normal [facility] Comment on above: Performed By: #### P OCGLUC #### [facility] [address] [address] [address] Karmen Mccormick GLYCOHEMOGLOBIN A1Con 2021 ADA RECOMMENDATION SEE BELOW Normal [facility] Comment on above: Result Comment: ADA RECOMMENDED LIMIT 4.0 - 6.0 ADA THERAPEUTIC TARGET < 7.0 ACTION SUGGESTED > 7.0 Performed By: #### P OCGLUC #### [facility] [address] [address] [address] Karmen Mccormick Glucose [Mass/Vol] 315 mg/dL Normal [facility] Comment on above: Performed By: #### P OCGLUC #### [facility] [address] [address] [address] Karmen Mccormick HbA1c (Bld) [Mass fraction] 12.6 % Critically high 4.5-6.2 [facility] Comment on above: Performed By: #### P OCGLUC #### [facility] [address] [address] [address] Karmen Mccormick PROF CHEM 8 (BAS METB)on Anion gap [Moles/Vol] 14.9 mmol/L Normal [facility] Comment on above: Performed By: #### P OCGLUC #### [facility] [address] [address] [address] Karmen Mccormick Calcium [Mass/Vol] 8.7 mg/dL Normal 8.5-10.1 [facility] Comment on above: Performed By: #### P OCGLUC #### [facility] [address] [address] [address] Karmen Mccormick Chloride [Moles/Vol] 102 mmol/L Normal 98-107 [facility] Comment on above: Performed By: #### P OCGLUC #### [facility] [address] [address] [address] Karmen Mccormick CO2 [Moles/Vol] 22.7 mmol/L Normal 21.0-32.0 [facility] Comment on above: Performed By: #### P OCGLUC #### [facility] [address] [address] [address] Karmen Mccormick Creatinine [Mass/Vol] 0.73 mg/dL Normal 0.55-1.02 [facility] Comment on above: Performed By: #### P OCGLUC #### [facility] [address] [address] [address] Karmen Mccormick EGFR-AF FIJIAN >60 Normal >=60 [facility] Comment on above: Performed By: #### P OCGLUC #### [facility] [address] [address] [address] Karmen Mccormick EGFR-NON AF FIJIAN >60 Normal >=60 [facility] Comment on above: Performed By: #### P OCGLUC #### [facility] [address] [address] [address] Karmen Mccormick Glucose [Mass/Vol] 290 mg/dL Critically high 74-106 [facility] Comment on above: Performed By: #### P OCGLUC #### [facility] [address] [address] [address] Karmen Mccormick Potassium [Moles/Vol] 4.6 mmol/L Normal 3.5-5.1 [facility] Comment on above: Performed By: #### P OCGLUC #### [facility] [address] [address] [address] Karmen Mccormick Sodium [Moles/Vol] 135 mmol/L Critically low 136-145 [facility] Comment on above: Performed By: #### P OCGLUC #### [facility] [address] [place] [address] Dr. Karmen Mccormick Urea nitrogen [Mass/Vol] 17.0 mg/dL Normal 7.0-18.0 [facility] Comment on above: Performed By: #### P OCGLUC #### [facility] [address] [address] [address] Karmen Mccormick Urea nitrogen/Creatinine [Mass ratio] 23.3 mg/mg Normal [facility] Comment on above: Performed By: #### P OCGLUC #### [facility] [address] [place] [address] Dr. Karmen Mccormick CBC AUTO DIFFon 04-09-2022 BASO # 0.1 103/ul Normal 0.0-0.1 [facility] Comment on above: Performed By: #### P OCGLUC #### [facility] [address] [address] [address] Karmen Mccormick Basophils/100 WBC (Bld) 0.8 % Normal 0.2-2.0 [facility] Comment on above: Performed By: #### P OCGLUC #### [facility] [address] [address] [address] Karmen Mccormick EO # 0.2 103/ul Normal 0.0-0.7 [facility] Comment on above: Performed By: #### P OCGLUC #### [facility] [address] [address] [address] Karmen Mccormick Eosinophils/100 WBC (Bld) 2.5 % Normal 0.9-7.0 [facility] Comment on above: Performed By: #### P OCGLUC #### [facility] [address] [place] [address] Dr. Karmen Mccormick Erythrocyte distribution width (RBC) [Ratio] 13.2 % Normal 11.0-15.0 [facility] Comment on above: Performed By: #### P OCGLUC #### [facility] [address] [place] [address] Dr. Karmen Mccormick Hematocrit (Bld) [Volume fraction] 33.9 % Critically low 36.0-48.0 [facility] Comment on above: Performed By: #### P OCGLUC #### [facility] [address] [place] [address] Dr. Karmen Mccormick Hemoglobin (Bld) [Mass/Vol] 11.5 g/dL Critically low 12.0-16.0 [facility] Comment on above: Performed By: #### P OCGLUC #### [facility] [address] [place] [address] Dr. Karmen Mccormick IG # 0.04 10e3/ul Critically high 0.00-0.[address] [facility] Comment on above: Performed By: #### P OCGLUC #### [facility] [address] [place] [address] Dr. Karmen Mccormick IG % 0.5 % Normal 0.0-0.5 [facility] Comment on above: Performed By: #### P OCGLUC #### [facility] [address] [place] [address] Dr. Karmen Mccormick LYMPH # 1.8 103/ul Normal 1.2-3.8 [facility] Comment on above: Performed By: #### P OCGLUC #### [facility] [address] [place] [address] Dr. Karmen Mccormick Lymphocytes/100 WBC (Bld) 20.2 % Critically low 20.5-60.0 [facility] Comment on above: Performed By: #### P OCGLUC #### [facility] [address] [address] [address] Karmen Mccormick MANUAL DIFF REQ NO Normal [facility] Comment on above: Performed By: #### P OCGLUC #### [facility] [address] [address] [address] Karmen Mccormick MCH (RBC) [Entitic mass] 29.3 pg Normal 26.7-34.0 [facility] Comment on above: Performed By: #### P OCGLUC #### [facility] [address] [address] [address] Karmen Mccormick MCHC (RBC) [Mass/Vol] 33.9 g/dL Normal 29.9-35.2 [facility] Comment on above: Performed By: #### P OCGLUC #### [facility] [address] [place] [address] Dr. Karmen Mccormick MCV (RBC) [Entitic vol] 86.3 fL Normal 81.0-99.0 [facility] Comment on above: Performed By: #### P OCGLUC #### [facility] [address] [address] [address] Karmen Mccormick MONO # 0.5 103/ul Normal 0.3-0.8 [facility] Comment on above: Performed By: #### P OCGLUC #### [facility] [address] [place] [address] Dr. Karmen Mccormick Monocytes/100 WBC (Bld) 6.1 % Normal 1.7-12.0 [facility] Comment on above: Performed By: #### P OCGLUC #### [facility] [address] [place] [address] Dr. Karmen Mccormick NEUT # 6.1 103/ul Normal 1.4-6.5 [facility] Comment on above: Performed By: #### P OCGLUC #### [facility] [address] [address] [address] Karmen Mccormick Neutrophils/100 WBC (Bld) 69.9 % Normal 43.0-75.0 [facility] Comment on above: Performed By: #### P OCGLUC #### [facility] [address] [address] [address] Karmen Mccormick Platelet mean volume (Bld) [Entitic vol] 9.5 fL Normal 9.5-13.5 [facility] Comment on above: Performed By: #### P OCGLUC #### [facility] [address] [address] [address] Karmen Mccormick PLT 335 103/ul Normal 150-450 [facility] Comment on above: Performed By: #### P OCGLUC #### [facility] [address] [address] [address] Karmen Mccormick RBC 3.93 106/ul Critically low 4.20-5.40 [facility] Comment on above: Performed By: #### P OCGLUC #### [facility] [address] [address] [address] Karmen Mccormick WBC 8.8 103/ul Normal 4.0-11.0 [facility] Comment on above: Performed By: #### P OCGLUC #### [facility] [address] [address] [address] Karmen Mccormick CRPon 04-09-2022 CRP [Mass/Vol] mg/L Normal <=1.0 [facility] Comment on above: Performed By: #### P OCGLUC #### [facility] [address] [address] [address] Karmen Mccormick PROF 14(COMP METB)on 022 Albumin [Mass/Vol] 3.1 g/dL Critically low 3.4-5.0 [facility] Comment on above: Performed By: #### P OCGLUC #### [facility] [address] [address] [address] Karmen Mccormick Albumin/Globulin [Mass ratio] 0.9 {ratio} Normal [facility] Comment on above: Performed By: #### P OCGLUC #### [facility] [address] [address] [address] Karmen Mccormick ALP [Catalytic activity/Vol] 86 U/L Normal 46-116 [facility] Comment on above: Performed By: #### P OCGLUC #### [facility] [address] [address] [address] Karmen Mccormick ALT [Catalytic activity/Vol] 23 U/L Normal 14-59 [facility] Comment on above: Performed By: #### P OCGLUC #### [facility] [address] [address] [address] Karmen Mccormick Anion gap [Moles/Vol] 14.5 mmol/L Normal [facility] Comment on above: Performed By: #### P OCGLUC #### [facility] [address] [address] [address] Karmen Mccormick AST [Catalytic activity/Vol] 11 U/L Critically low 15-37 [facility] Comment on above: Performed By: #### P OCGLUC #### [facility] [address] [address] [address] Karmen Mccormick Bilirubin [Mass/Vol] 0.3 mg/dL Normal 0.2-1.0 [facility] Comment on above: Performed By: #### P OCGLUC #### [facility] [address] [address] [address] Karmen Mccormick Calcium [Mass/Vol] 8.8 mg/dL Normal 8.5-10.1 [facility] Comment on above: Performed By: #### P OCGLUC #### [facility] [address] [address] [address] Karmen Mccormick Chloride [Moles/Vol] 96 mmol/L Critically low 98-107 [facility] Comment on above: Performed By: #### P OCGLUC #### [facility] [address] [address] [address] Karmen Mccormick CO2 [Moles/Vol] 24.5 mmol/L Normal 21.0-32.0 [facility] Comment on above: Performed By: #### P OCGLUC #### [facility] [address] [address] [address] Karmen Mccormick Creatinine [Mass/Vol] 0.88 mg/dL Normal 0.55-1.02 [facility] Comment on above: Performed By: #### P OCGLUC #### [facility] [address] [address] [address] Karmen Mccormick EGFR-AF FIJIAN >60 Normal >=60 [facility] Comment on above: Performed By: #### P OCGLUC #### [facility] [address] [address] [address] Karmen Mccormick EGFR-NON AF FIJIAN >60 Normal >=60 [facility] Comment on above: Performed By: #### P OCGLUC #### [facility] [address] [address] [address] Karmen Mccormick Globulin (S) [Mass/Vol] 3.6 g/dL Normal [facility] Comment on above: Performed By: #### P OCGLUC #### [facility] [address] [address] [address] Karmen Mccormick Glucose [Mass/Vol] 479 mg/dL Critically high 74-106 [facility] Comment on above: Performed By: #### P OCGLUC #### [facility] [address] [address] [address] Karmen Mccormick Potassium [Moles/Vol] 5.0 mmol/L Normal 3.5-5.1 [facility] Comment on above: Performed By: #### P OCGLUC #### [facility] [address] [address] [address] Karmen Mccormick Protein [Mass/Vol] 6.7 g/dL Normal 6.4-8.2 [facility] Comment on above: Performed By: #### P OCGLUC #### [facility] [address] [address] [address] Karmen Mccormick Sodium [Moles/Vol] 130 mmol/L Critically low 136-145 [facility] Comment on above: Performed By: #### P OCGLUC #### [facility] [address] [address] [address] Karmen Mccormick Urea nitrogen [Mass/Vol] 18.0 mg/dL Normal 7.0-18.0 [facility] Comment on above: Performed By: #### P OCGLUC #### [facility] [address] [address] [address] Karmen Mccormick Urea nitrogen/Creatinine [Mass ratio] 20.5 mg/mg Normal [facility] Comment on above: Performed By: #### P OCGLUC #### [facility] [address] [address] [address] Karmen Mccormick SED RATE WESTERGRENon 2021 SED RATE 33 mm/hr Critically high <=30 [facility] Comment on above: Performed By: #### P OCGLUC #### [facility] [address] [address] [address] Karmen Mccormick CBC AUTO DIFFon 04-02-2022 BASO # 0.0 103/ul Normal 0.0-0.1 [facility] Comment on above: Performed By: #### P OCGLUC #### [facility] [address] [place] [address] Dr. Karmen Mccormick Basophils/100 WBC (Bld) 0.5 % Normal 0.2-2.0 [facility] Comment on above: Performed By: #### P OCGLUC #### [facility] [address] [address] [address] Karmen Mccormick EO # 0.4 103/ul Normal 0.0-0.7 [facility] Comment on above: Performed By: #### P OCGLUC #### [facility] [address] [place] [address] Dr. Karmen Mccormick Eosinophils/100 WBC (Bld) 4.4 % Normal 0.9-7.0 [facility] Comment on above: Performed By: #### P OCGLUC #### [facility] [address] [place] [address] Dr. Karmen Mccormick Erythrocyte distribution width (RBC) [Ratio] 13.2 % Normal 11.0-15.0 [facility] Comment on above: Performed By: #### P OCGLUC #### [facility] [address] [place] [address] Dr. Karmen Mccormick Hematocrit (Bld) [Volume fraction] 32.4 % Critically low 36.0-48.0 [facility] Comment on above: Performed By: #### P OCGLUC #### [facility] [address] [address] [address] Karmen Mccormick Hemoglobin (Bld) [Mass/Vol] 10.3 g/dL Critically low 12.0-16.0 [facility] Comment on above: Performed By: #### P OCGLUC #### [facility] [address] [address] [address] Karmen Mccormick IG # 0.04 10e3/ul Critically high 0.00-0.[address] [facility] Comment on above: Performed By: #### P OCGLUC #### [facility] [address] [address] [address] Karmen Mccormick IG % 0.5 % Normal 0.0-0.5 [facility] Comment on above: Performed By: #### P OCGLUC #### [facility] [address] [address] [address] Karmen Mccormick LYMPH # 1.9 103/ul Normal 1.2-3.8 [facility] Comment on above: Performed By: #### P OCGLUC #### [facility] [address] [address] [address] Karmen Mccormick Lymphocytes/100 WBC (Bld) 23.2 % Normal 20.5-60.0 [facility] Comment on above: Performed By: #### P OCGLUC #### [facility] [address] [address] [address] Karmen Mccormick MANUAL DIFF REQ NO Normal [facility] Comment on above: Performed By: #### P OCGLUC #### [facility] [address] [address] [address] Karmen Mccormick MCH (RBC) [Entitic mass] 29.0 pg Normal 26.7-34.0 [facility] Comment on above: Performed By: #### P OCGLUC #### [facility] [address] [address] [address] Karmen Mccormick MCHC (RBC) [Mass/Vol] 31.8 g/dL Normal 29.9-35.2 [facility] Comment on above: Performed By: #### P OCGLUC #### [facility] [address] [address] [address] Karmen Mccormick MCV (RBC) [Entitic vol] 91.3 fL Normal 81.0-99.0 [facility] Comment on above: Performed By: #### P OCGLUC #### [facility] [address] [address] [address] Karmen Mccormick MONO # 0.6 103/ul Normal 0.3-0.8 [facility] Comment on above: Performed By: #### P OCGLUC #### [facility] [address] [address] [address] Karmen Mccormick Monocytes/100 WBC (Bld) 7.2 % Normal 1.7-12.0 [facility] Comment on above: Performed By: #### P OCGLUC #### [facility] [address] [place] [address] Dr. Karmen Mccormick NEUT # 5.2 103/ul Normal 1.4-6.5 [facility] Comment on above: Performed By: #### P OCGLUC #### [facility] [address] [place] [address] Dr. Karmen Mccormick Neutrophils/100 WBC (Bld) 64.2 % Normal 43.0-75.0 [facility] Comment on above: Performed By: #### P OCGLUC #### [facility] [address] [address] [address] Karmen Mccormick Platelet mean volume (Bld) [Entitic vol] 9.3 fL Critically low 9.5-13.5 [facility] Comment on above: Performed By: #### P OCGLUC #### [facility] [address] [address] [address] Karmen Mccormick PLT 236 103/ul Normal 150-450 [facility] Comment on above: Performed By: #### P OCGLUC #### [facility] [address] [place] [address] Dr. Karmen Mccormick RBC 3.55 106/ul Critically low 4.20-5.40 [facility] Comment on above: Performed By: #### P OCGLUC #### [facility] [address] [address] [address] Karmen Mccormick WBC 8.2 103/ul Normal 4.0-11.0 [facility] Comment on above: Performed By: #### P OCGLUC #### [facility] [address] [address] [address] Karmen Mccormick PROF 14(COMP METB)on 022 Albumin [Mass/Vol] 2.2 g/dL Critically low 3.4-5.0 [facility] Comment on above: Performed By: #### P OCGLUC #### [facility] [address] [address] [address] Karmen Mccormick Albumin/Globulin [Mass ratio] 0.7 {ratio} Normal [facility] Comment on above: Performed By: #### P OCGLUC #### [facility] [address] [address] [address] Karmen Mccormick ALP [Catalytic activity/Vol] 71 U/L Normal 46-116 [facility] Comment on above: Performed By: #### P OCGLUC #### [facility] [address] [address] [address] Karmen Mccormick ALT [Catalytic activity/Vol] 12 U/L Critically low 14-59 [facility] Comment on above: Performed By: #### P OCGLUC #### [facility] [address] [address] [address] Karmen Mccormick Anion gap [Moles/Vol] 8.7 mmol/L Normal [facility] Comment on above: Performed By: #### P OCGLUC #### [facility] [address] [address] [address] Karmen Mccormick AST [Catalytic activity/Vol] 15 U/L Normal 15-37 [facility] Comment on above: Performed By: #### P OCGLUC #### [facility] [address] [address] [address] Karmen Mccormick Bilirubin [Mass/Vol] 0.2 mg/dL Normal 0.2-1.0 [facility] Comment on above: Performed By: #### P OCGLUC #### [facility] [address] [address] [address] Karmen Mccormick Calcium [Mass/Vol] 8.2 mg/dL Critically low 8.5-10.1 [facility] Comment on above: Performed By: #### P OCGLUC #### [facility] [address] [address] [address] Karmen Mccormick Chloride [Moles/Vol] 107 mmol/L Normal 98-107 [facility] Comment on above: Performed By: #### P OCGLUC #### [facility] [address] [address] [address] Karmen Mccormick CO2 [Moles/Vol] 24.6 mmol/L Normal 21.0-32.0 [facility] Comment on above: Performed By: #### P OCGLUC #### [facility] [address] [address] [address] Karmen Mccormick Creatinine [Mass/Vol] 0.62 mg/dL Normal 0.55-1.02 [facility] Comment on above: Performed By: #### P OCGLUC #### [facility] [address] [address] [address] Karmen Mccormick EGFR-AF FIJIAN >60 Normal >=60 [facility] Comment on above: Performed By: #### P OCGLUC #### [facility] [address] [address] [address] Karmen Mccormick EGFR-NON AF FIJIAN >60 Normal >=60 [facility] Comment on above: Performed By: #### P OCGLUC #### [facility] [address] [address] [address] Karmen Mccormick Globulin (S) [Mass/Vol] 3.0 g/dL Normal [facility] Comment on above: Performed By: #### P OCGLUC #### [facility] [address] [address] [address] Karmen Mccormick Glucose [Mass/Vol] 263 mg/dL Critically high 74-106 [facility] Comment on above: Performed By: #### P OCGLUC #### [facility] [address] [address] [address] Karmen Mccormick Potassium [Moles/Vol] 3.3 mmol/L Critically low 3.5-5.1 [facility] Comment on above: Performed By: #### P OCGLUC #### [facility] [address] [place] [address] Dr. Karmen Mccormick Protein [Mass/Vol] 5.2 g/dL Critically low 6.4-8.2 [facility] Comment on above: Performed By: #### P OCGLUC #### [facility] [address] [address] [address] Karmen Mccormick Sodium [Moles/Vol] 137 mmol/L Normal 136-145 [facility] Comment on above: Performed By: #### P OCGLUC #### [facility] [address] [place] [address] Dr. Karmen Mccormick Urea nitrogen [Mass/Vol] 10.0 mg/dL Normal 7.0-18.0 [facility] Comment on above: Performed By: #### P OCGLUC #### [facility] [address] [place] [address] Dr. Karmen Mccormick Urea nitrogen/Creatinine [Mass ratio] 16.1 mg/mg Normal [facility] Comment on above: Performed By: #### P OCGLUC #### [facility] [address] [place] [address] Dr. Karmen Mccormick CBC AUTO DIFFon 04-01-2022 BASO # 0.0 103/ul Normal 0.0-0.1 [facility] Comment on above: Performed By: #### B MP #### [facility] [address] [place] [address] Dr. Karmen Mccormick Basophils/100 WBC (Bld) 0.4 % Normal 0.2-2.0 [facility] Comment on above: Performed By: #### B MP #### [facility] [address] [place] [address] Dr. Karmen Mccormick EO # 0.3 103/ul Normal 0.0-0.7 [facility] Comment on above: Performed By: #### B MP #### [facility] [address] [place] [address] Dr. Karmen Mccormick Eosinophils/100 WBC (Bld) 3.9 % Normal 0.9-7.0 [facility] Comment on above: Performed By: #### B MP #### [facility] [address] [place] [address] Dr. Karmen Mccormick Erythrocyte distribution width (RBC) [Ratio] 13.4 % Normal 11.0-15.0 [facility] Comment on above: Performed By: #### B MP #### [facility] [address] [place] [address] Dr. Karmen Mccormick Hematocrit (Bld) [Volume fraction] 33.3 % Critically low 36.0-48.0 [facility] Comment on above: Performed By: #### B MP #### [facility] [address] [place] [address] Dr. Karmen Mccormick Hemoglobin (Bld) [Mass/Vol] 11.1 g/dL Critically low 12.0-16.0 [facility] Comment on above: Performed By: #### B MP #### [facility] [address] [place] [address] Dr. Karmen Mccormick IG # 0.04 10e3/ul Critically high 0.00-0.[address] [facility] Comment on above: Performed By: #### B MP #### [facility] [address] [place] [address] Dr. Karmen Mccormick IG % 0.5 % Normal 0.0-0.5 [facility] Comment on above: Performed By: #### B MP #### [facility] [address] [place] [address] Dr. Karmen Mccormick LYMPH # 2.5 103/ul Normal 1.2-3.8 [facility] Comment on above: Performed By: #### B MP #### [facility] [address] [place] [address] Dr. Karmen Mccormick Lymphocytes/100 WBC (Bld) 33.2 % Normal 20.5-60.0 [facility] Comment on above: Performed By: #### B MP #### [facility] [address] [place] [address] Dr. Karmen Mccormick MANUAL DIFF REQ NO Normal [facility] Comment on above: Performed By: #### B MP #### [facility] [address] [place] [address] Dr. Karmen Mccormick MCH (RBC) [Entitic mass] 29.4 pg Normal 26.7-34.0 [facility] Comment on above: Performed By: #### B MP #### [facility] [address] [place] [address] Dr. Karmen Mccormick MCHC (RBC) [Mass/Vol] 33.3 g/dL Normal 29.9-35.2 [facility] Comment on above: Performed By: #### B MP #### [facility] [address] [place] [address] Dr. Karmen Mccormick MCV (RBC) [Entitic vol] 88.3 fL Normal 81.0-99.0 [facility] Comment on above: Performed By: #### B MP #### [facility] [address] [place] [address] Dr. Karmen Mccormick MONO # 0.6 103/ul Normal 0.3-0.8 [facility] Comment on above: Performed By: #### B MP #### [facility] [address] [place] [address] Dr. Karmen Mccormick Monocytes/100 WBC (Bld) 8.3 % Normal 1.7-12.0 [facility] Comment on above: Performed By: #### B MP #### [facility] [address] [place] [address] Dr. Karmen Mccormick NEUT # 4.0 103/ul Normal 1.4-6.5 [facility] Comment on above: Performed By: #### B MP #### [facility] [address] [place] [address] Dr. Karmen Mccormick Neutrophils/100 WBC (Bld) 53.7 % Normal 43.0-75.0 [facility] Comment on above: Performed By: #### B MP #### [facility] [address] [address] [address] Karmen Mccormick Platelet mean volume (Bld) [Entitic vol] 10.1 fL Normal 9.5-13.5 [facility] Comment on above: Performed By: #### B MP #### [facility] [address] [address] [address] Karmen Mccormick PLT 222 103/ul Normal 150-450 [facility] Comment on above: Performed By: #### B MP #### [facility] [address] [place] [address] Dr. Karmen Mccormick RBC 3.77 106/ul Critically low 4.20-5.40 [facility] Comment on above: Performed By: #### B MP #### [facility] [address] [place] [address] Dr. Karmen Mccormick WBC 7.5 103/ul Normal 4.0-11.0 [facility] Comment on above: Performed By: #### B MP #### [facility] [address] [place] [address] Dr. Karmen Mccormick H PYLORI ANTIBODY IGGon 03-14 H. PYLORI IGG ABS 0.22 Index Value Normal 0.00-0.79 [facility] Comment on above: Result Comment: Nega tive <0.80 Equivocal 0.80 - 0.89 Positive >0.89 Performed By: #### P OCGLUC #### [facility] [address] [place] [address] Dr. Karmen Mccormick POINT OF CARE GLUCOSEon 03-14 0 Glucose [Mass/Vol] 187 mg/dL Critically high 74-106 [facility] Comment on above: Performed By: #### P OCGLUC #### [facility] [address] [place] [address] Dr. Karmen Mccormick Glucose [Mass/Vol] 200 mg/dL Critically high 74-106 [facility] Comment on above: Performed By: #### P OCGLUC #### [facility] [address] [place] [address] Dr. Karmen Mccormick Glucose [Mass/Vol] 173 mg/dL Critically high 74-106 [facility] Comment on above: Performed By: #### P OCGLUC #### [facility] [address] [address] [address] Karmen Mccormick PROF 14(COMP METB)on 022 Albumin [Mass/Vol] 2.1 g/dL Critically low 3.4-5.0 [facility] Comment on above: Performed By: #### P OCGLUC #### [facility] [address] [address] [address] Karmen Mccormick Albumin/Globulin [Mass ratio] 0.7 {ratio} Normal [facility] Comment on above: Performed By: #### P OCGLUC #### [facility] [address] [place] [address] Dr. Karmen Mccormick ALP [Catalytic activity/Vol] 70 U/L Normal 46-116 [facility] Comment on above: Performed By: #### P OCGLUC #### [facility] [address] [place] [address] Dr. Karmen Mccormick ALT [Catalytic activity/Vol] 14 U/L Normal 14-59 [facility] Comment on above: Performed By: #### P OCGLUC #### [facility] [address] [place] [address] Dr. Karmen Mccormick Anion gap [Moles/Vol] 12.9 mmol/L Normal [facility] Comment on above: Performed By: #### P OCGLUC #### [facility] [address] [place] [address] Dr. Karmen Mccormick AST [Catalytic activity/Vol] 23 U/L Normal 15-37 [facility] Comment on above: Performed By: #### P OCGLUC #### [facility] [address] [place] [address] Dr. Karmen Mccormick Bilirubin [Mass/Vol] 0.4 mg/dL Normal 0.2-1.0 [facility] Comment on above: Performed By: #### P OCGLUC #### [facility] [address] [place] [address] Dr. Karmen Mccormick Calcium [Mass/Vol] 8.1 mg/dL Critically low 8.5-10.1 [facility] Comment on above: Performed By: #### P OCGLUC #### [facility] [address] [address] [address] Karmen Mccormick Chloride [Moles/Vol] 107 mmol/L Normal 98-107 [facility] Comment on above: Performed By: #### P OCGLUC #### [facility] [address] [address] [address] Karmen Mccormick CO2 [Moles/Vol] 20.8 mmol/L Critically low 21.0-32.0 [facility] Comment on above: Performed By: #### P OCGLUC #### [facility] [address] [place] [address] Dr. Karmen Mccormick Creatinine [Mass/Vol] 0.79 mg/dL Normal 0.55-1.02 [facility] Comment on above: Performed By: #### P OCGLUC #### [facility] [address] [place] [address] Dr. Karmen Mccormick EGFR-AF FIJIAN >60 Normal >=60 [facility] Comment on above: Performed By: #### P OCGLUC #### [facility] [address] [place] [address] Dr. Karmen Mccormick EGFR-NON AF FIJIAN >60 Normal >=60 [facility] Comment on above: Performed By: #### P OCGLUC #### [facility] [address] [address] [address] Karmen Mccormick Globulin (S) [Mass/Vol] 3.1 g/dL Normal [facility] Comment on above: Performed By: #### P OCGLUC #### [facility] [address] [address] [address] Karmen Mccormick Glucose [Mass/Vol] 226 mg/dL Critically high 74-106 [facility] Comment on above: Performed By: #### P OCGLUC #### [facility] [address] [place] [address] Dr. Karmen Mccormick Potassium [Moles/Vol] 3.7 mmol/L Normal 3.5-5.1 [facility] Comment on above: Performed By: #### P OCGLUC #### [facility] [address] [address] [address] Karmen Mccormick Protein [Mass/Vol] 5.2 g/dL Critically low 6.4-8.2 [facility] Comment on above: Performed By: #### P OCGLUC #### [facility] [address] [address] [address] Karmen Mccormick Sodium [Moles/Vol] 137 mmol/L Normal 136-145 [facility] Comment on above: Performed By: #### P OCGLUC #### [facility] [address] [address] [address] Karmen Mccormick Urea nitrogen [Mass/Vol] 9.0 mg/dL Normal 7.0-18.0 [facility] Comment on above: Performed By: #### P OCGLUC #### [facility] [address] [address] [address] Karmen Mccormick Urea nitrogen/Creatinine [Mass ratio] 11.4 mg/mg Normal [facility] Comment on above: Performed By: #### P OCGLUC #### [facility] [address] [place] [address] Dr. Karmen Mccormick WOUND CULTUREon 04-01-2022 Antimicrobial Susceptibility Comment Normal [facility] Comment on above: Result Comment: S = Susceptible; I = Intermediate; R = Resistant P = Positive; N = Negative MICS are expressed in micrograms per mL Antibiotic RSLT#1 RSLT#2 RSLT#3 RSLT#4 Ciprofloxacin R Clindamycin S Erythromycin R Gentamicin S Levofloxacin I Linezolid S Oxacillin R Penicillin R Rifampin S Tetracycline S Trimethoprim/Sulfa S Vancomycin S Performed By: #### C BC #### [facility] [address] [place] [address] Dr. Karmen Mccormick Bacteria identified Aer cx Nom (Unsp spec) Final report Abnormal [facility] Comment on above: Performed By: #### C BC #### [facility] [address] [address] [address] Karmen Mccormick Result 1 Comment Abnormal [facility] Comment on above: Result Comment: Meth icillin - resistant Staphylococcus aureus Based on resistance to oxacillin this isolate would be resistant to all currently available beta-lactam antimicrobial agents, with the exception of the newer cephalosporins with anti-MRSA activity, such as Ceftaroline Heavy growth Performed By: #### C BC #### [facility] [address] [place] [address] Dr. Karmen Mccormick Result 2 Mixed skin alexis Normal [facility] Comment on above: Result Comment: Elías y growth Performed By: #### C BC #### [facility] [address] [place] [address] Dr. Karmen Mccormick CBC AUTO DIFFon 03-31-2022 BASO # 0.0 103/ul Normal 0.0-0.1 [facility] Comment on above: Performed By: #### P OCGLUC #### [facility] [address] [place] [address] Dr. Karmen Mccormick Basophils/100 WBC (Bld) 0.4 % Normal 0.2-2.0 [facility] Comment on above: Performed By: #### P OCGLUC #### [facility] [address] [place] [address] Dr. Karmen Mccormick EO # 0.2 103/ul Normal 0.0-0.7 [facility] Comment on above: Performed By: #### P OCGLUC #### [facility] [address] [place] [address] Dr. Karmen Mccormick Eosinophils/100 WBC (Bld) 2.4 % Normal 0.9-7.0 [facility] Comment on above: Performed By: #### P OCGLUC #### [facility] [address] [place] [address] Dr. Karmen Mccormick Erythrocyte distribution width (RBC) [Ratio] 13.2 % Normal 11.0-15.0 [facility] Comment on above: Performed By: #### P OCGLUC #### [facility] [address] [place] [address] Dr. Karmen Mccormick Hematocrit (Bld) [Volume fraction] 39.1 % Normal 36.0-48.0 [facility] Comment on above: Performed By: #### P OCGLUC #### [facility] [address] [address] [address] Karmen Mccormick Hemoglobin (Bld) [Mass/Vol] 12.7 g/dL Normal 12.0-16.0 [facility] Comment on above: Performed By: #### P OCGLUC #### [facility] [address] [address] [address] Karmen Mccormick IG # 0.04 10e3/ul Critically high 0.00-0.[address] [facility] Comment on above: Performed By: #### P OCGLUC #### [facility] [address] [address] [address] Karmen Mccormick IG % 0.4 % Normal 0.0-0.5 [facility] Comment on above: Performed By: #### P OCGLUC #### [facility] [address] [place] [address] Dr. Karmen Mccormick LYMPH # 3.1 103/ul Normal 1.2-3.8 [facility] Comment on above: Performed By: #### P OCGLUC #### [facility] [address] [place] [address] Dr. Karmen Mccormick Lymphocytes/100 WBC (Bld) 32.3 % Normal 20.5-60.0 [facility] Comment on above: Performed By: #### P OCGLUC #### [facility] [address] [place] [address] Dr. Karmen Mccormick MANUAL DIFF REQ NO Normal [facility] Comment on above: Performed By: #### P OCGLUC #### [facility] [address] [address] [address] Karmen Mccormick MCH (RBC) [Entitic mass] 29.3 pg Normal 26.7-34.0 [facility] Comment on above: Performed By: #### P OCGLUC #### [facility] [address] [address] [address] Karmen Mccormick MCHC (RBC) [Mass/Vol] 32.5 g/dL Normal 29.9-35.2 [facility] Comment on above: Performed By: #### P OCGLUC #### [facility] [address] [address] [address] Karmen Mccormick MCV (RBC) [Entitic vol] 90.3 fL Normal 81.0-99.0 [facility] Comment on above: Performed By: #### P OCGLUC #### [facility] [address] [place] [address] Dr. Karmen Mccormick MONO # 0.9 103/ul Critically high 0.3-0.8 [facility] Comment on above: Performed By: #### P OCGLUC #### [facility] [address] [place] [address] Dr. Karmen Mccormick Monocytes/100 WBC (Bld) 8.9 % Normal 1.7-12.0 [facility] Comment on above: Performed By: #### P OCGLUC #### [facility] [address] [place] [address] Dr. Karmen Mccormick NEUT # 5.3 103/ul Normal 1.4-6.5 [facility] Comment on above: Performed By: #### P OCGLUC #### [facility] [address] [place] [address] Dr. Karmen Mccormick Neutrophils/100 WBC (Bld) 55.6 % Normal 43.0-75.0 [facility] Comment on above: Performed By: #### P OCGLUC #### [facility] [address] [place] [address] Dr. Karmen Mccormick Platelet mean volume (Bld) [Entitic vol] 10.0 fL Normal 9.5-13.5 [facility] Comment on above: Performed By: #### P OCGLUC #### [facility] [address] [place] [address] Dr. Karmen Mccormick PLT 278 103/ul Normal 150-450 [facility] Comment on above: Performed By: #### P OCGLUC #### [facility] [address] [place] [address] Dr. Karmen Mccormick RBC 4.33 106/ul Normal 4.20-5.40 [facility] Comment on above: Performed By: #### P OCGLUC #### [facility] [address] [address] [address] Karmen Mccormick WBC 9.5 103/ul Normal 4.0-11.0 [facility] Comment on above: Performed By: #### P OCGLUC #### [facility] [address] [address] [address] Karmen Mccormick POINT OF CARE GLUCOSEon 03-13 Glucose [Mass/Vol] 130 mg/dL Critically high -[address] [place] [address] Comment on above: Performed By: #### P OCGLUC #### [facility] [address] [address] [address] Karmen Mccormick Glucose [Mass/Vol] 153 mg/dL Critically high [address] [place] [address] Comment on above: Performed By: #### A CETON #### [facility] [address] [address] [address] Karmen Mccormick Glucose [Mass/Vol] 195 mg/dL Critically high [address] [place] [address] Comment on above: Performed By: #### B MP #### [facility] [address] [address] [address] Karmen Mccormick Glucose [Mass/Vol] 163 mg/dL Critically high [address] [place] [address] Comment on above: Performed By: #### A CETON #### [facility] [address] [address] [address] Karmen Mccormick Glucose [Mass/Vol] 88 mg/dL Normal 74-106 [facility] Comment on above: Performed By: #### B MP #### [facility] [address] [address] [address] Karmen Mccormick Glucose [Mass/Vol] 145 mg/dL Critically high [facility]106 [facility] Comment on above: Performed By: #### A CETON #### [facility] [address] [address] [address] Karmen Mccormick Glucose [Mass/Vol] 117 mg/dL Critically high [address] [place] [address] Comment on above: Performed By: #### C BC #### [facility] [address] [address] [address] Karmen Mccormick Glucose [Mass/Vol] 146 mg/dL Critically high 74-106 [facility] Comment on above: Performed By: #### C VDTBH #### [facility] [address] [place] [address] Dr. Karmen Mccormick PROF 14(COMP METB)on 022 Albumin [Mass/Vol] 2.4 g/dL Critically low 3.4-5.0 [facility] Comment on above: Performed By: #### P OCGLUC #### [facility] [address] [address] [address] Karmen Mccormick Albumin/Globulin [Mass ratio] 0.7 {ratio} Normal [facility] Comment on above: Performed By: #### P OCGLUC #### [facility] [address] [place] [address] Dr. Karmen Mccormick ALP [Catalytic activity/Vol] 83 U/L Normal 46-116 [facility] Comment on above: Performed By: #### P OCGLUC #### [facility] [address] [place] [address] Dr. Karmen Mccormick ALT [Catalytic activity/Vol] 14 U/L Normal 14-59 [facility] Comment on above: Performed By: #### P OCGLUC #### [facility] [address] [place] [address] Dr. Karmen Mccormick Anion gap [Moles/Vol] 12.2 mmol/L Normal [facility] Comment on above: Performed By: #### P OCGLUC #### [facility] [address] [place] [address] Dr. Karmen Mccormick AST [Catalytic activity/Vol] 20 U/L Normal 15-37 [facility] Comment on above: Performed By: #### P OCGLUC #### [facility] [address] [place] [address] Dr. Karmen Mccormick Bilirubin [Mass/Vol] 0.4 mg/dL Normal 0.2-1.0 [facility] Comment on above: Performed By: #### P OCGLUC #### [facility] [address] [address] [address] Karmen Mccormick Calcium [Mass/Vol] 8.4 mg/dL Critically low 8.5-10.1 [facility] Comment on above: Performed By: #### P OCGLUC #### [facility] [address] [place] [address] Dr. Karmen Mccormick Chloride [Moles/Vol] 110 mmol/L Critically high 98-107 [facility] Comment on above: Performed By: #### P OCGLUC #### [facility] [address] [place] [address] Dr. Karmen Mccormick CO2 [Moles/Vol] 21.5 mmol/L Normal 21.0-32.0 [facility] Comment on above: Performed By: #### P OCGLUC #### [facility] [address] [place] [address] Dr. Karmen Mccormick Creatinine [Mass/Vol] 0.63 mg/dL Normal 0.55-1.02 [facility] Comment on above: Performed By: #### P OCGLUC #### [facility] [address] [place] [address] Dr. Karmen Mccormick EGFR-AF FIJIAN >60 Normal >=60 [facility] Comment on above: Performed By: #### P OCGLUC #### [facility] [address] [place] [address] Dr. Karmen Mccormick EGFR-NON AF FIJIAN >60 Normal >=60 [facility] Comment on above: Performed By: #### P OCGLUC #### [facility] [address] [address] [address] Karmen Mccormick Globulin (S) [Mass/Vol] 3.5 g/dL Normal [facility] Comment on above: Performed By: #### P OCGLUC #### [facility] [address] [place] [address] Dr. Karmen Mccormick Glucose [Mass/Vol] 121 mg/dL Critically high 74-106 [facility] Comment on above: Performed By: #### P OCGLUC #### [facility] [address] [place] [address] Dr. Karmen Mccormick Potassium [Moles/Vol] 3.7 mmol/L Normal 3.5-5.1 [facility] Comment on above: Performed By: #### P OCGLUC #### [facility] [address] [address] [address] Karmen Mccormick Protein [Mass/Vol] 5.9 g/dL Critically low 6.4-8.2 [facility] Comment on above: Performed By: #### P OCGLUC #### [facility] [address] [address] [address] Karmen Mccormick Sodium [Moles/Vol] 140 mmol/L Normal 136-145 [facility] Comment on above: Performed By: #### P OCGLUC #### [facility] [address] [address] [address] Karmen Mccormick Urea nitrogen [Mass/Vol] 10.0 mg/dL Normal 7.0-18.0 [facility] Comment on above: Performed By: #### P OCGLUC #### [facility] [address] [address] [address] Karmen Mccormick Urea nitrogen/Creatinine [Mass ratio] 15.9 mg/mg Normal [facility] Comment on above: Performed By: #### P OCGLUC #### [facility] [address] [address] [address] Karmen Mccormick XR ABD FLAT UP_PA [...] TEJAS CHRISTOPHER Date: 2022-03-31 13:12 Normal [facility] CBC AUTO DIFFon 03-30-2022 BASO # 0.0 103/ul Normal 0.0-0.1 [facility] Comment on above: Performed By: #### C BC #### [facility] [address] [address] [address] Karmen Mccormick Basophils/100 WBC (Bld) 0.4 % Normal 0.2-2.0 [facility] Comment on above: Performed By: #### C BC #### [facility] [address] [address] [address] Karmen Mccormick EO # 0.1 103/ul Normal 0.0-0.7 [facility] Comment on above: Performed By: #### C BC #### [facility] [address] [place] [address] Dr. Karmen Mccormick Eosinophils/100 WBC (Bld) 1.5 % Normal 0.9-7.0 [facility] Comment on above: Performed By: #### C BC #### [facility] [address] [place] [address] Dr. Karmen Mccormick Erythrocyte distribution width (RBC) [Ratio] 13.6 % Normal 11.0-15.0 [facility] Comment on above: Performed By: #### C BC #### [facility] [address] [place] [address] Dr. Karmen Mccormick Hematocrit (Bld) [Volume fraction] 37.1 % Normal 36.0-48.0 [facility] Comment on above: Performed By: #### C BC #### [facility] [address] [place] [address] Dr. Karmen Mccormick Hemoglobin (Bld) [Mass/Vol] 12.1 g/dL Normal 12.0-16.0 [facility] Comment on above: Performed By: #### C BC #### [facility] [address] [place] [address] Dr. Karmen Mccormick IG # 0.02 10e3/ul Normal 0.00-0.03 [facility] Comment on above: Performed By: #### C BC #### [facility] [address] [place] [address] Dr. Karmen Mccormick IG % 0.3 % Normal 0.0-0.5 [facility] Comment on above: Performed By: #### C BC #### [facility] [address] [place] [address] Dr. Karmen Mccormick LYMPH # 2.0 103/ul Normal 1.2-3.8 [facility] Comment on above: Performed By: #### C BC #### [facility] [address] [place] [address] Dr. Karmen Mccormick Lymphocytes/100 WBC (Bld) 25.7 % Normal 20.5-60.0 [facility] Comment on above: Performed By: #### C BC #### [facility] [address] [place] [address] Dr. Karmen Mccormick MANUAL DIFF REQ NO Normal [facility] Comment on above: Performed By: #### C BC #### [facility] [address] [place] [address] Dr. Karmen Mccormick MCH (RBC) [Entitic mass] 28.8 pg Normal 26.7-34.0 [facility] Comment on above: Performed By: #### C BC #### [facility] [address] [place] [address] Dr. Karmen Mccormick MCHC (RBC) [Mass/Vol] 32.6 g/dL Normal 29.9-35.2 [facility] Comment on above: Performed By: #### C BC #### [facility] [address] [place] [address] Dr. Karmen Mccormick MCV (RBC) [Entitic vol] 88.3 fL Normal 81.0-99.0 [facility] Comment on above: Performed By: #### C BC #### [facility] [address] [place] [address] Dr. Karmen Mccormick MONO # 0.8 103/ul Normal 0.3-0.8 [facility] Comment on above: Performed By: #### C BC #### [facility] [address] [place] [address] Dr. Karmen Mccormick Monocytes/100 WBC (Bld) 9.5 % Normal 1.7-12.0 [facility] Comment on above: Performed By: #### C BC #### [facility] [address] [place] [address] Dr. Karemn Mccormick NEUT # 4.9 103/ul Normal 1.4-6.5 [facility] Comment on above: Performed By: #### C BC #### [facility] [address] [place] [address] Dr. Karmen Mccormick Neutrophils/100 WBC (Bld) 62.6 % Normal 43.0-75.0 [facility] Comment on above: Performed By: #### C BC #### [facility] [address] [place] [address] Dr. Karmen Mccormick Platelet mean volume (Bld) [Entitic vol] 8.9 fL Critically low 9.5-13.5 [facility] Comment on above: Performed By: #### C BC #### [facility] [address] [place] [address] Dr. Karmen Mccormick PLT 324 103/ul Normal 150-450 [facility] Comment on above: Performed By: #### C BC #### [facility] [address] [place] [address] Dr. Karmen Mccormick RBC 4.20 106/ul Normal 4.20-5.40 [facility] Comment on above: Performed By: #### C BC #### [facility] [address] [place] [address] Dr. Karmen Mccormick WBC 7.9 103/ul Normal 4.0-11.0 [facility] Comment on above: Performed By: #### C BC #### [facility] [address] [place] [address] Dr. Karmen Mccormick POINT OF CARE GLUCOSEon 03-13 Glucose [Mass/Vol] 147 mg/dL Critically high 74-106 [facility] Comment on above: Performed By: #### P OCGLUC #### [facility] [address] [place] [address] Dr. Karmen Mccormick Glucose [Mass/Vol] 187 mg/dL Critically high 74-106 [facility] Comment on above: Performed By: #### C VDTBH #### [facility] [address] [place] [address] Dr. Karmen Mccormick Glucose [Mass/Vol] 211 mg/dL Critically high 74-106 [facility] Comment on above: Performed By: #### B MP #### [facility] [address] [place] [address] Dr. Karmen Mccormick PROF 14(COMP METB)on 022 Albumin [Mass/Vol] 2.5 g/dL Critically low 3.4-5.0 [facility] Comment on above: Performed By: #### C BC #### [facility] [address] [place] [address] Dr. Karmen Mccormick Albumin/Globulin [Mass ratio] 0.7 {ratio} Normal [facility] Comment on above: Performed By: #### C BC #### [facility] [address] [place] [address] Dr. Karmen Mccormick ALP [Catalytic activity/Vol] 76 U/L Normal 46-116 [facility] Comment on above: Performed By: #### C BC #### [facility] [address] [place] [address] Dr. Karmen Mccormick ALT [Catalytic activity/Vol] 7 U/L Critically low 14-59 [facility] Comment on above: Performed By: #### C BC #### [facility] [address] [place] [address] Dr. Karmen Mccormick Anion gap [Moles/Vol] 10.8 mmol/L Normal [facility] Comment on above: Performed By: #### C BC #### [facility] [address] [place] [address] Dr. Karmen Mccormick AST [Catalytic activity/Vol] 11 U/L Critically low 15-37 [facility] Comment on above: Performed By: #### C BC #### [facility] [address] [place] [address] Dr. Karmen Mccormick Bilirubin [Mass/Vol] 0.3 mg/dL Normal 0.2-1.0 [facility] Comment on above: Performed By: #### C BC #### [facility] [address] [address] [address] Karmen Mccormick Calcium [Mass/Vol] 8.4 mg/dL Critically low 8.5-10.1 [facility] Comment on above: Performed By: #### C BC #### [facility] [address] [address] [address] Karmen Mccormick Chloride [Moles/Vol] 106 mmol/L Normal 98-107 [facility] Comment on above: Performed By: #### C BC #### [facility] [address] [place] [address] Dr. Karmen Mccormick CO2 [Moles/Vol] 23.6 mmol/L Normal 21.0-32.0 [facility] Comment on above: Performed By: #### C BC #### [facility] [address] [place] [address] Dr. Karmen Mccormick Creatinine [Mass/Vol] 0.66 mg/dL Normal 0.55-1.02 [facility] Comment on above: Performed By: #### C BC #### [facility] [address] [place] [address] Dr. Karmen Mccormick EGFR-AF FIJIAN >60 Normal >=60 [facility] Comment on above: Performed By: #### C BC #### [facility] [address] [place] [address] Dr. Karmen Mccormick EGFR-NON AF FIJIAN >60 Normal >=60 [facility] Comment on above: Performed By: #### C BC #### [facility] [address] [place] [address] Dr. Karmen Mccormick Globulin (S) [Mass/Vol] 3.4 g/dL Normal [facility] Comment on above: Performed By: #### C BC #### [facility] [address] [place] [address] Dr. Karmen Mccormick Glucose [Mass/Vol] 187 mg/dL Critically high 74-106 [facility] Comment on above: Performed By: #### C BC #### [facility] [address] [place] [address] Dr. Karmen Mccormick Potassium [Moles/Vol] 3.4 mmol/L Critically low 3.5-5.1 [facility] Comment on above: Performed By: #### C BC #### [facility] [address] [place] [address] Dr. Karmen Mccormick Protein [Mass/Vol] 5.9 g/dL Critically low 6.4-8.2 [facility] Comment on above: Performed By: #### C BC #### [facility] [address] [place] [address] Dr. Karmen Mccormick Sodium [Moles/Vol] 137 mmol/L Normal 136-145 [facility] Comment on above: Performed By: #### C BC #### [facility] [address] [place] [address] Dr. Karmen Mccormick Urea nitrogen [Mass/Vol] 14.0 mg/dL Normal 7.0-18.0 [facility] Comment on above: Performed By: #### C BC #### [facility] [address] [place] [address] Dr. Karmen Mccormick Urea nitrogen/Creatinine [Mass ratio] 21.2 mg/mg Normal [facility] Comment on above: Performed By: #### C BC #### [facility] [address] [place] [address] Dr. Karmen Mccormick CBC AUTO DIFFon 03-29-2022 BASO # 0.0 103/ul Normal 0.0-0.1 [facility] Comment on above: Performed By: #### P OCGLUC #### [facility] [address] [place] [address] Dr. Karmen Mccormick Basophils/100 WBC (Bld) 0.3 % Normal 0.2-2.0 [facility] Comment on above: Performed By: #### P OCGLUC #### [facility] [address] [place] [address] Dr. Karmen Mccormick EO # 0.0 103/ul Normal 0.0-0.7 [facility] Comment on above: Performed By: #### P OCGLUC #### [facility] [address] [place] [address] Dr. Karmen Mccormick Eosinophils/100 WBC (Bld) 0.4 % Critically low 0.9-7.0 [facility] Comment on above: Performed By: #### P OCGLUC #### [facility] [address] [place] [address] Dr. Karmen Mccormick Erythrocyte distribution width (RBC) [Ratio] 13.7 % Normal 11.0-15.0 [facility] Comment on above: Performed By: #### P OCGLUC #### [facility] [address] [place] [address] Dr. Karmen Mccormick Hematocrit (Bld) [Volume fraction] 40.9 % Normal 36.0-48.0 [facility] Comment on above: Performed By: #### P OCGLUC #### [facility] [address] [place] [address] Dr. Karmen Mccormick Hemoglobin (Bld) [Mass/Vol] 13.4 g/dL Normal 12.0-16.0 [facility] Comment on above: Performed By: #### P OCGLUC #### [facility] [address] [place] [address] Dr. Karmen Mccormick IG # 0.05 10e3/ul Critically high 0.00-0.[address] [facility] Comment on above: Performed By: #### P OCGLUC #### [facility] [address] [place] [address] Dr. Karmen Mccormick IG % 0.5 % Normal 0.0-0.5 [facility] Comment on above: Performed By: #### P OCGLUC #### [facility] [address] [place] [address] Dr. Karmen Mccormick LYMPH # 1.3 103/ul Normal 1.2-3.8 [facility] Comment on above: Performed By: #### P OCGLUC #### [facility] [address] [place] [address] Dr. Karmen Mccormick Lymphocytes/100 WBC (Bld) 13.4 % Critically low 20.5-60.0 [facility] Comment on above: Performed By: #### P OCGLUC #### [facility] [address] [place] [address] Dr. Karmen Mccormick MANUAL DIFF REQ NO Normal [facility] Comment on above: Performed By: #### P OCGLUC #### [facility] [address] [place] [address] Dr. Karmen Mccormick MCH (RBC) [Entitic mass] 28.8 pg Normal 26.7-34.0 [facility] Comment on above: Performed By: #### P OCGLUC #### [facility] [address] [place] [address] Dr. Karmen Mccormick MCHC (RBC) [Mass/Vol] 32.8 g/dL Normal 29.9-35.2 [facility] Comment on above: Performed By: #### P OCGLUC #### [facility] [address] [place] [address] Dr. Karmen Mccormick MCV (RBC) [Entitic vol] 87.8 fL Normal 81.0-99.0 [facility] Comment on above: Performed By: #### P OCGLUC #### [facility] [address] [place] [address] Dr. Karmen Mccormick MONO # 0.7 103/ul Normal 0.3-0.8 [facility] Comment on above: Performed By: #### P OCGLUC #### [facility] [address] [place] [address] Dr. Karmen Mccormick Monocytes/100 WBC (Bld) 7.4 % Normal 1.7-12.0 [facility] Comment on above: Performed By: #### P OCGLUC #### [facility] [address] [place] [address] Dr. Karmen Mccormick NEUT # 7.6 103/ul Critically high 1.4-6.5 [facility] Comment on above: Performed By: #### P OCGLUC #### [facility] [address] [place] [address] Dr. Karmen Mccormick Neutrophils/100 WBC (Bld) 78.0 % Critically high 43.0-75.0 [facility] Comment on above: Performed By: #### P OCGLUC #### [facility] [address] [place] [address] Dr. Karmen Mccormick Platelet mean volume (Bld) [Entitic vol] 9.1 fL Critically low 9.5-13.5 [facility] Comment on above: Performed By: #### P OCGLUC #### [facility] [address] [place] [address] Dr. Karmen Mccormick PLT 370 103/ul Normal 150-450 [facility] Comment on above: Performed By: #### P OCGLUC #### [facility] [address] [address] [address] Karmen Mccormick RBC 4.66 106/ul Normal 4.20-5.40 [facility] Comment on above: Performed By: #### P OCGLUC #### [facility] [address] [place] [address] Dr. Karmen Mccormick WBC 9.8 103/ul Normal 4.0-11.0 [facility] Comment on above: Performed By: #### P OCGLUC #### [facility] [address] [place] [address] Dr. Karmen Mccormick POINT OF CARE GLUCOSEon 03-13 Glucose [Mass/Vol] 233 mg/dL Critically high 74-106 [facility] Comment on above: Performed By: #### C VDTBH #### [facility] [address] [place] [address] Dr. Karmen Mccormick Glucose [Mass/Vol] 212 mg/dL Critically high 74-106 [facility] Comment on above: Performed By: #### P OCGLUC #### [facility] [address] [place] [address] Dr. Karmen Mccormick Glucose [Mass/Vol] 237 mg/dL Critically high 74-106 [facility] Comment on above: Performed By: #### A CETON #### [facility] [address] [place] [address] Dr. Karmen Mccormick PROF 14(COMP METB)on 022 Albumin [Mass/Vol] 2.6 g/dL Critically low 3.4-5.0 [facility] Comment on above: Performed By: #### P OCGLUC #### [facility] [facility] [address] [address] [address] Karmen Mccormick Albumin/Globulin [Mass ratio] 0.7 {ratio} Normal [facility] Comment on above: Performed By: #### P OCGLUC #### [facility] [address] [address] [address] Karmen Mccormick ALP [Catalytic activity/Vol] 86 U/L Normal 46-116 [facility] Comment on above: Performed By: #### P OCGLUC #### [facility] [address] [address] [address] Karmen Mccormick ALT [Catalytic activity/Vol] 12 U/L Critically low 14-59 [facility] Comment on above: Performed By: #### P OCGLUC #### [facility] [address] [place] [address] Dr. Karmen Mccormick Anion gap [Moles/Vol] 14.9 mmol/L Normal [facility] Comment on above: Performed By: #### P OCGLUC #### [facility] [address] [place] [address] Dr. Karmen Mccormick AST [Catalytic activity/Vol] 13 U/L Critically low 15-37 [facility] Comment on above: Performed By: #### P OCGLUC #### [facility] [address] [place] [address] Dr. Karmen Mccormick Bilirubin [Mass/Vol] 0.3 mg/dL Normal 0.2-1.0 [facility] Comment on above: Performed By: #### P OCGLUC #### [facility] [address] [address] [address] Karmen Mccormick Calcium [Mass/Vol] 8.8 mg/dL Normal 8.5-10.1 [facility] Comment on above: Performed By: #### P OCGLUC #### [facility] [address] [address] [address] Karmen Mccormick Chloride [Moles/Vol] 106 mmol/L Normal 98-107 [facility] Comment on above: Performed By: #### P OCGLUC #### [facility] [address] [place] [address] Dr. Karmen Mccormick CO2 [Moles/Vol] 21.6 mmol/L Normal 21.0-32.0 [facility] Comment on above: Performed By: #### P OCGLUC #### [facility] [address] [address] [address] Karmen Mccormick Creatinine [Mass/Vol] 0.77 mg/dL Normal 0.55-1.02 [facility] Comment on above: Performed By: #### P OCGLUC #### [facility] [address] [address] [address] Karmen Mccormick EGFR-AF FIJIAN >60 Normal >=60 [facility] Comment on above: Performed By: #### P OCGLUC #### [facility] [address] [address] [address] Karmen Mccormick EGFR-NON AF FIJIAN >60 Normal >=60 [facility] Comment on above: Performed By: #### P OCGLUC #### [facility] [address] [address] [address] Karmen Mccormick Globulin (S) [Mass/Vol] 3.9 g/dL Normal [facility] Comment on above: Performed By: #### P OCGLUC #### [facility] [address] [place] [address] Dr. Karmen Mccormick Glucose [Mass/Vol] 195 mg/dL Critically high 74-106 [facility] Comment on above: Performed By: #### P OCGLUC #### [facility] [address] [place] [address] Dr. Karmen Mccormick Potassium [Moles/Vol] 3.5 mmol/L Normal 3.5-5.1 [facility] Comment on above: Performed By: #### P OCGLUC #### [facility] [address] [address] [address] Karmen Mccormick Protein [Mass/Vol] 6.5 g/dL Normal 6.4-8.2 [facility] Comment on above: Performed By: #### P OCGLUC #### [facility] [address] [address] [address] Karmen Mccormick Sodium [Moles/Vol] 139 mmol/L Normal 136-145 [facility] Comment on above: Performed By: #### P OCGLUC #### [facility] [address] [place] [address] Dr. Karmen Mccormick Urea nitrogen [Mass/Vol] 17.0 mg/dL Normal 7.0-18.0 [facility] Comment on above: Performed By: #### P OCGLUC #### [facility] [address] [place] [address] Dr. Karmen Mccormick Urea nitrogen/Creatinine [Mass ratio] 22.1 mg/mg Normal [facility] Comment on above: Performed By: #### P OCGLUC #### [facility] [address] [place] [address] Dr. Karmen Mccormick CBC AUTO DIFFon 03-28-2022 BASO # 0.0 103/ul Normal 0.0-0.1 [facility] Comment on above: Performed By: #### P OCGLUC #### [facility] [address] [place] [address] Dr. Karmen Mccormick Basophils/100 WBC (Bld) 0.3 % Normal 0.2-2.0 [facility] Comment on above: Performed By: #### P OCGLUC #### [facility] [address] [place] [address] Dr. Karmen Mccormick EO # 0.0 103/ul Normal 0.0-0.7 [facility] Comment on above: Performed By: #### P OCGLUC #### [facility] [address] [place] [address] Dr. Karmen Mccormick Eosinophils/100 WBC (Bld) 0.2 % Critically low 0.9-7.0 [facility] Comment on above: Performed By: #### P OCGLUC #### [facility] [address] [place] [address] Dr. Karmen Mccormick Erythrocyte distribution width (RBC) [Ratio] 13.2 % Normal 11.0-15.0 [facility] Comment on above: Performed By: #### P OCGLUC #### [facility] [address] [place] [address] Dr. Karmen Mccormick Hematocrit (Bld) [Volume fraction] 39.1 % Normal 36.0-48.0 [facility] Comment on above: Performed By: #### P OCGLUC #### [facility] [address] [address] [address] Karmen Mccormick Hemoglobin (Bld) [Mass/Vol] 13.0 g/dL Normal 12.0-16.0 [facility] Comment on above: Performed By: #### P OCGLUC #### [facility] [address] [place] [address] Dr. Karmen Mccormick IG # 0.08 10e3/ul Critically high 0.00-0.03 [facility] Comment on above: Performed By: #### P OCGLUC #### [facility] [address] [place] [address] Dr. Karmen Mccormick IG % 0.7 % Critically high 0.0-0.5 [facility] Comment on above: Performed By: #### P OCGLUC #### [facility] [address] [place] [address] Dr. Karmen Mccormick LYMPH # 1.4 103/ul Normal 1.2-3.8 [facility] Comment on above: Performed By: #### P OCGLUC #### [facility] [address] [place] [address] Dr. Karmen Mccormick Lymphocytes/100 WBC (Bld) 12.3 % Critically low 20.5-60.0 [facility] Comment on above: Performed By: #### P OCGLUC #### [facility] [address] [place] [address] Dr. Karmen Mccormick MANUAL DIFF REQ NO Normal [facility] Comment on above: Performed By: #### P OCGLUC #### [facility] [address] [place] [address] Dr. Karmen Mccormick MCH (RBC) [Entitic mass] 29.3 pg Normal 26.7-34.0 [facility] Comment on above: Performed By: #### P OCGLUC #### [facility] [address] [place] [address] Dr. Karmen Mccormick MCHC (RBC) [Mass/Vol] 33.2 g/dL Normal 29.9-35.2 [facility] Comment on above: Performed By: #### P OCGLUC #### [facility] [address] [address] [address] Karmen Mccormick MCV (RBC) [Entitic vol] 88.3 fL Normal 81.0-99.0 [facility] Comment on above: Performed By: #### P OCGLUC #### [facility] [address] [address] [address] Karmen Mccormick MONO # 0.8 103/ul Normal 0.3-0.8 [facility] Comment on above: Performed By: #### P OCGLUC #### [facility] [address] [place] [address] Dr. Karmen Mccormick Monocytes/100 WBC (Bld) 6.6 % Normal 1.7-12.0 [facility] Comment on above: Performed By: #### P OCGLUC #### [facility] [address] [place] [address] Dr. Karmen Mccormick NEUT # 9.1 103/ul Critically high 1.4-6.5 [facility] Comment on above: Performed By: #### P OCGLUC #### [facility] [address] [place] [address] Dr. Karmen Mccormick Neutrophils/100 WBC (Bld) 79.9 % Critically high 43.0-75.0 [facility] Comment on above: Performed By: #### P OCGLUC #### [facility] [address] [place] [address] Dr. Karmen Mccormick Platelet mean volume (Bld) [Entitic vol] 10.1 fL Normal 9.5-13.5 [facility] Comment on above: Performed By: #### P OCGLUC #### [facility] [address] [place] [address] Dr. Karmen Mccormick PLT 336 103/ul Normal 150-450 [facility] Comment on above: Performed By: #### P OCGLUC #### [facility] [address] [place] [address] Dr. Karmen Mccormick RBC 4.43 106/ul Normal 4.20-5.40 [facility] Comment on above: Performed By: #### P OCGLUC #### [facility] [address] [address] [address] Karmen Mccormick WBC 11.4 103/ul Critically high 4.0-11.0 [facility] Comment on above: Performed By: #### P OCGLUC #### [facility] [address] [address] [address] Karmen Mccormick POINT OF CARE GLUCOSEon 03-13 Glucose [Mass/Vol] 198 mg/dL Critically high [address] [place] [address] Comment on above: Performed By: #### P OCGLUC #### [facility] [address] [place] [address] Dr. Karmen Mccormick Glucose [Mass/Vol] 509 mg/dL Critically high [address] [place] [address] Comment on above: Result Comment: [employer] Performed By: #### P OCGLUC #### [facility] [address] [place] [address] Dr. Karmen Mccormick Glucose [Mass/Vol] 193 mg/dL Critically high [address] [place] [address] Comment on above: Performed By: #### C VDTBH #### [facility] [address] [place] [address] Dr. Karmen Mccormick Glucose [Mass/Vol] 217 mg/dL Critically high [address] [place] [address] Comment on above: Performed By: #### C BC #### [facility] [address] [place] [address] Dr. Karmen Mccormick Glucose [Mass/Vol] 207 mg/dL Critically high [address] [place] [address] Comment on above: Performed By: #### P OCGLUC #### [facility] [address] [place] [address] Dr. Karmen Mccormick Glucose [Mass/Vol] 198 mg/dL Critically high [address] [place] [address] Comment on above: Performed By: #### P OCGLUC #### [facility] [address] [place] [address] Dr. Karmen Mccormick Glucose [Mass/Vol] 208 mg/dL Critically high [address] [place] [address] Comment on above: Performed By: #### P OCGLUC #### [facility] [address] [address] [address] Karmen Mccormick Glucose [Mass/Vol] 194 mg/dL Critically high [address] [place] [address] Comment on above: Performed By: #### P OCGLUC #### [facility] [address] [address] [address] Karmen Mccormick Glucose [Mass/Vol] 162 mg/dL Critically high [address] [place] [address] Comment on above: Performed By: #### P OCGLUC #### [facility] [address] [address] [address] Karmen Mccormick Glucose [Mass/Vol] 166 mg/dL Critically high [address] [place] [address] Comment on above: Performed By: #### P OCGLUC #### [facility] [address] [address] [address] Karmen Mccormick Glucose [Mass/Vol] 209 mg/dL Critically high [address] [place] [address] Comment on above: Performed By: #### P OCGLUC #### [facility] [address] [address] [address] Karmen Mccormick Glucose [Mass/Vol] 210 mg/dL Critically high [address] [place] [address] Comment on above: Performed By: #### P OCGLUC #### [facility] [address] [address] [address] Karmen Mccormick Glucose [Mass/Vol] 207 mg/dL Critically high [address] [place] [address] Comment on above: Performed By: #### C VDTBH #### [facility] [address] [address] [address] Karmen Mccormick Glucose [Mass/Vol] 209 mg/dL Critically high [address] [place] [address] Comment on above: Performed By: #### P OCGLUC #### [facility] [address] [address] [address] Karmen Mccormick Glucose [Mass/Vol] 225 mg/dL Critically high [facility]106 [facility] Comment on above: Performed By: #### A CETON #### [facility] [address] [address] [address] Karmen Mccormick Glucose [Mass/Vol] 262 mg/dL Critically high -106 [facility] Comment on above: Performed By: #### P OCGLUC #### [facility] [address] [address] [address] Karmen Mccormick Glucose [Mass/Vol] 252 mg/dL Critically high -106 [facility] Comment on above: Performed By: #### P OCGLUC #### [facility] [address] [place] [address] Dr. Karmen Mccormick PROF 14(COMP METB)on 022 Albumin [Mass/Vol] 2.9 g/dL Critically low 3.4-5.0 [facility] Comment on above: Performed By: #### C VDTBH #### [facility] [address] [place] [address] Dr. Karmen Mccormick Albumin/Globulin [Mass ratio] 0.7 {ratio} Normal [facility] Comment on above: Performed By: #### C VDTBH #### [facility] [address] [place] [address] Dr. Karmen Mccormick ALP [Catalytic activity/Vol] 102 U/L Normal 46-116 [facility] Comment on above: Performed By: #### C VDTBH #### [facility] [address] [place] [address] Dr. Karmen Mccormick ALT [Catalytic activity/Vol] 13 U/L Critically low 14-59 [facility] Comment on above: Performed By: #### C VDTBH #### [facility] [address] [place] [address] Dr. Karmen Mccormick Anion gap [Moles/Vol] 18.1 mmol/L Normal [facility] Comment on above: Performed By: #### C VDTBH #### [facility] [address] [place] [address] Dr. Karmen Mccormick AST [Catalytic activity/Vol] 10 U/L Critically low 15-37 [facility] Comment on above: Performed By: #### C VDTBH #### [facility] [address] [place] [address] Dr. Karmen Mccormick Bilirubin [Mass/Vol] 0.2 mg/dL Normal 0.2-1.0 [facility] Comment on above: Performed By: #### C VDTBH #### [facility] [address] [place] [address] Dr. Karmen Mccormick Calcium [Mass/Vol] 9.5 mg/dL Normal 8.5-10.1 [facility] Comment on above: Performed By: #### C VDTBH #### [facility] [address] [place] [address] Dr. Karmen Mccormick Chloride [Moles/Vol] 107 mmol/L Normal 98-107 [facility] Comment on above: Performed By: #### C VDTBH #### [facility] [address] [place] [address] Dr. Karmen Mccormick CO2 [Moles/Vol] 21.3 mmol/L Normal 21.0-32.0 [facility] Comment on above: Performed By: #### C VDTBH #### [facility] [address] [place] [address] Dr. Karmen Mccormick Creatinine [Mass/Vol] 0.86 mg/dL Normal 0.55-1.02 [facility] Comment on above: Performed By: #### C VDTBH #### [facility] [address] [place] [address] Dr. Karmen Mccormick EGFR-AF FIJIAN >60 Normal >=60 [facility] Comment on above: Performed By: #### C VDTBH #### [facility] [address] [place] [address] Dr. Karmen Mccormick EGFR-NON AF FIJIAN >60 Normal >=60 [facility] Comment on above: Performed By: #### C VDTBH #### [facility] [address] [place] [address] Dr. Karmen Mccormick Globulin (S) [Mass/Vol] 4.3 g/dL Normal T [facility] Comment on above: Performed By: #### C VDTBH #### [facility] [address] [address] [address] Karmen Mccormick Glucose [Mass/Vol] 199 mg/dL Critically high 74-106 [facility] Comment on above: Performed By: #### C VDTBH #### [facility] [address] [place] [address] Dr. Karmen Mccormick Potassium [Moles/Vol] 4.4 mmol/L Normal 3.5-5.1 [facility] Comment on above: Performed By: #### C VDTBH #### [facility] [address] [place] [address] Dr. Karmen Mccormick Protein [Mass/Vol] 7.2 g/dL Normal 6.4-8.2 [facility] Comment on above: Performed By: #### C VDTBH #### [facility] [address] [place] [address] Dr. Karmen Mccormick Sodium [Moles/Vol] 142 mmol/L Normal 136-145 [facility] Comment on above: Performed By: #### C VDTBH #### [facility] [address] [place] [address] Dr. Karmen Mccormick Urea nitrogen [Mass/Vol] 22.0 mg/dL Critically high 7.0-18.0 [facility] Comment on above: Performed By: #### C VDTBH #### [facility] [address] [place] [address] Dr. Karmen Mccormick Urea nitrogen/Creatinine [Mass ratio] 25.6 mg/mg Normal [facility] Comment on above: Performed By: #### C VDTBH #### [facility] [address] [place] [address] Dr. Karmen Mccormick PROF CHEM 8 (BAS METB)on Anion gap [Moles/Vol] 15.8 mmol/L Normal [facility] Comment on above: Performed By: #### A CETON #### [facility] [address] [place] [address] Dr. Karmen Mccormick Calcium [Mass/Vol] 9.3 mg/dL Normal 8.5-10.1 [facility] Comment on above: Performed By: #### A CETON #### [facility] [address] [address] [address] Karmen Mccormick Chloride [Moles/Vol] 106 mmol/L Normal 98-107 [facility] Comment on above: Performed By: #### A CETON #### [facility] [address] [address] [address] Karmen Mccormick CO2 [Moles/Vol] 22.0 mmol/L Normal 21.0-32.0 [facility] Comment on above: Performed By: #### A CETON #### [facility] [address] [place] [address] Dr. Karmen Mccormick Creatinine [Mass/Vol] 0.83 mg/dL Normal 0.55-1.02 [facility] Comment on above: Performed By: #### A CETON #### [facility] [address] [place] [address] Dr. Karmen Mccormick EGFR-AF FIJIAN >60 Normal >=60 [facility] Comment on above: Performed By: #### A CETON #### [facility] [address] [place] [address] Dr. Karmen Mccormick EGFR-NON AF FIJIAN >60 Normal >=60 [facility] Comment on above: Performed By: #### A CETON #### [facility] [address] [place] [address] Dr. Karmen Mccormick Glucose [Mass/Vol] 233 mg/dL Critically high 74-106 [facility] Comment on above: Performed By: #### A CETON #### [facility] [address] [address] [address] Karmen Mccormick Potassium [Moles/Vol] 3.8 mmol/L Normal 3.5-5.1 [facility] Comment on above: Performed By: #### A CETON #### [facility] [address] [address] [address] Karmen Mccormick Sodium [Moles/Vol] 140 mmol/L Normal 136-145 [facility] Comment on above: Performed By: #### A CETON #### [facility] [address] [address] [address] Karmen Mccormick Urea nitrogen [Mass/Vol] 21.0 mg/dL Critically high 7.0-18.0 [facility] Comment on above: Performed By: #### A CETON #### [facility] [address] [address] [address] Karmen Mccormick Urea nitrogen/Creatinine [Mass ratio] 25.3 mg/mg Normal [facility] Comment on above: Performed By: #### A CETON #### [facility] [address] [address] [address] Karmen Mccormick Anion gap [Moles/Vol] 20.4 mmol/L Normal [facility] Comment on above: Performed By: #### C BC #### [facility] [address] [address] [address] Karmen Mccormick Calcium [Mass/Vol] 9.7 mg/dL Normal 8.5-10.1 [facility] Comment on above: Performed By: #### C BC #### [facility] [address] [address] [address] Karmen Mccormick Chloride [Moles/Vol] 104 mmol/L Normal 98-107 [facility] Comment on above: Performed By: #### C BC #### [facility] [address] [address] [address] Karmen Mccormick CO2 [Moles/Vol] 17.7 mmol/L Critically low 21.0-32.0 [facility] Comment on above: Performed By: #### C BC #### [facility] [address] [address] [address] Karmen Mccormick Creatinine [Mass/Vol] 1.00 mg/dL Normal 0.55-1.02 [facility] Comment on above: Performed By: #### C BC #### [facility] [address] [address] [address] Karmen Mccormick EGFR-AF FIJIAN >60 Normal >=60 [facility] Comment on above: Performed By: #### C BC #### [facility] [address] [address] [address] Karmen Mccormick EGFR-NON AF FIJIAN 55 mL/min/1.73m2 Critically low >=60 [facility] Comment on above: Performed By: #### C BC #### [facility] [address] [address] [address] Karmen Mccormick Glucose [Mass/Vol] 277 mg/dL Critically high 74-106 [facility] Comment on above: Performed By: #### C BC #### [facility] [address] [address] [address] Karmen Mccormick Potassium [Moles/Vol] 4.1 mmol/L Normal 3.5-5.1 [facility] Comment on above: Performed By: #### C BC #### [facility] [address] [place] [address] Dr. Karmen Mccormick Sodium [Moles/Vol] 138 mmol/L Normal 136-145 [facility] Comment on above: Performed By: #### C BC #### [facility] [address] [address] [address] Karmen Mccormick Urea nitrogen [Mass/Vol] 23.0 mg/dL Critically high 7.0-18.0 [facility] Comment on above: Performed By: #### C BC #### [facility] [address] [address] [address] Karmen Mccormick Urea nitrogen/Creatinine [Mass ratio] 23.0 mg/mg Normal [facility] Comment on above: Performed By: #### C BC #### [facility] [address] [address] [address] Karmen Mccormick ACETONE SERUMon 03-27-2022 ACETONE SMALL Abnormal NEGATIVE [facility] Comment on above: Performed By: #### A CETON #### [facility] Laboratory [address] [place] [address] Dr. Karmen Mccormick CBC AUTO DIFFon 03-27-2022 BASO # 0.0 103/ul Normal 0.0-0.1 [facility] Comment on above: Performed By: #### P OCGLUC #### [facility] [address] [address] [address] Karmen Mccormick Basophils/100 WBC (Bld) 0.3 % Normal 0.2-2.0 [facility] Comment on above: Performed By: #### P OCGLUC #### [facility] [address] [address] [address] Karmen Mccormick EO # 0.0 103/ul Normal 0.0-0.7 [facility] Comment on above: Performed By: #### P OCGLUC #### [facility] [address] [address] [address] Karmen Mccormick Eosinophils/100 WBC (Bld) 0.2 % Critically low 0.9-7.0 [facility] Comment on above: Performed By: #### P OCGLUC #### [facility] [address] [place] [address] Dr. Karmen Mccormick Erythrocyte distribution width (RBC) [Ratio] 13.0 % Normal 11.0-15.0 [facility] Comment on above: Performed By: #### P OCGLUC #### [facility] [address] [address] [address] Karmen Mccormick Hematocrit (Bld) [Volume fraction] 42.0 % Normal 36.0-48.0 [facility] Comment on above: Performed By: #### P OCGLUC #### [facility] [address] [place] [address] Dr. Karmen Mccormick Hemoglobin (Bld) [Mass/Vol] 13.5 g/dL Normal 12.0-16.0 [facility] Comment on above: Performed By: #### P OCGLUC #### [facility] [address] [address] [address] Karmen Mccormick IG # 0.07 10e3/ul Critically high 0.00-0.[address] [facility] Comment on above: Performed By: #### P OCGLUC #### [facility] [address] [address] [address] Karmen Mccormick IG % 0.8 % Critically high 0.0-0.5 [facility] Comment on above: Performed By: #### P OCGLUC #### [facility] [address] [address] [address] Karmen Mccormick LYMPH # 1.0 103/ul Critically low 1.2-3.8 [facility] Comment on above: Performed By: #### P OCGLUC #### [facility] [address] [address] [address] Karmen Mccormick Lymphocytes/100 WBC (Bld) 11.0 % Critically low 20.5-60.0 [facility] Comment on above: Performed By: #### P OCGLUC #### [facility] [address] [address] [address] Karmen Mccormick MANUAL DIFF REQ NO Normal [facility] Comment on above: Performed By: #### P OCGLUC #### [facility] [address] [address] [address] Karmen Mccormick MCH (RBC) [Entitic mass] 28.8 pg Normal 26.7-34.0 [facility] Comment on above: Performed By: #### P OCGLUC #### [facility] [address] [address] [address] Karmen Mccormick MCHC (RBC) [Mass/Vol] 32.1 g/dL Normal 29.9-35.2 [facility] Comment on above: Performed By: #### P OCGLUC #### [facility] [address] [address] [address] Karmen Mccormick MCV (RBC) [Entitic vol] 89.7 fL Normal 81.0-99.0 [facility] Comment on above: Performed By: #### P OCGLUC #### [facility] [address] [address] [address] Karmen Mccormick MONO # 0.4 103/ul Normal 0.3-0.8 [facility] Comment on above: Performed By: #### P OCGLUC #### [facility] [address] [address] [address] Karmen Mccormick Monocytes/100 WBC (Bld) 4.8 % Normal 1.7-12.0 [facility] Comment on above: Performed By: #### P OCGLUC #### [facility] [address] [address] [address] Karmen Mccormick NEUT # 7.5 103/ul Critically high 1.4-6.5 [facility] Comment on above: Performed By: #### P OCGLUC #### [facility] [address] [address] [address] Karmen Mccormick Neutrophils/100 WBC (Bld) 82.9 % Critically high 43.0-75.0 [facility] Comment on above: Performed By: #### P OCGLUC #### [facility] [address] [place] [address] Dr. Karmen Mccormick Platelet mean volume (Bld) [Entitic vol] 10.3 fL Normal 9.5-13.5 [facility] Comment on above: Performed By: #### P OCGLUC #### [facility] [address] [place] [address] Dr. Karmen Mccormick PLT 333 103/ul Normal 150-450 [facility] Comment on above: Performed By: #### P OCGLUC #### [facility] [address] [place] [address] Dr. Karmen Mccormick RBC 4.68 106/ul Normal 4.20-5.40 [facility] Comment on above: Performed By: #### P OCGLUC #### [facility] [address] [place] [address] Dr. Karmen Mccormick WBC 9.0 103/ul Normal 4.0-11.0 [facility] Comment on above: Performed By: #### P OCGLUC #### [facility] [address] [place] [address] Dr. Karmen Mccormick Covid-19 PCR ([facility])on 03-13 SARS-CoV-2 (COVID-19) RNA IRVIN+probe Ql (Unsp spec) Not detected Normal NOT DETECTED [facility] Comment on above: Result Comment: [...] for this test is supported by the Tax Processor of Health and Human Service's declaration that [...] used). Performed By: #### C VDTBH #### [facility] [address] [place] [address] Dr. Karmen Mccormick ER URINE PROFILEon 2 Bilirubin Ql (U) Negative Normal NEGATIVE [facility] Comment on above: Performed By: #### P OCGLUC #### [facility] [address] [place] [address] Dr. Karmen Mccormick Clarity (U) CLEAR Normal CLEAR [facility] Comment on above: Performed By: #### P OCGLUC #### [facility] [address] [place] [address] Dr. Karmen Mccormick Color (U) LT. YELLOW Normal YELLOW [facility] Comment on above: Performed By: #### P OCGLUC #### [facility] [address] [place] [address] Dr. Karmen ANDREWLay A micrscopic examination will be performed if indicated. Normal [facility] Comment on above: Performed By: #### P OCGLUC #### [facility] [address] [place] [address] Dr. Karmen Mccormick Glucose Ql (U) 1000 mg/dl Abnormal NEGATIVE [facility] Comment on above: Performed By: #### P OCGLUC #### [facility] [address] [place] [address] Dr. Karmen cMcormick Hemoglobin Ql (U) Negative Normal NEGATIVE [facility] Comment on above: Performed By: #### P OCGLUC #### [facility] [address] [address] [address] Karmen Mccormick Ketones Ql (U) >=80 Abnormal NEGATIVE [facility] Comment on above: Performed By: #### P OCGLUC #### [facility] [address] [place] [address] Dr. Karmen Mccormick LEUKOCYTES Negative Normal NEGATIVE [facility] Comment on above: Performed By: #### P OCGLUC #### [facility] [address] [address] [address] Karmen Mccormick Nitrite Ql (U) Negative Normal NEGATIVE [facility] Comment on above: Performed By: #### P OCGLUC #### [facility] [address] [place] [address] Dr. Karmen Mccormick pH (U) 5.5 [pH] Normal 5-9 [facility] Comment on above: Performed By: #### P OCGLUC #### [facility] [address] [place] [address] Dr. Karmen Mccormick SPEC GRAVITY 1.020 Normal 1.005-<=1.025 [facility] Comment on above: Performed By: #### P OCGLUC #### [facility] [address] [place] [address] Dr. Karmen Mccormick UA PROTEIN Negative Normal NEGATIVE/ TRACE [facility] Comment on above: Performed By: #### P OCGLUC #### [facility] [address] [place] [address] Dr. Karmen Mccormick UR MICRO IND NOT INDICATED Normal [facility] Comment on above: Performed By: #### P OCGLUC #### [facility] [address] [place] [address] Dr. Karmen Mccormick Urobilinogen Qn (U) 0.2 {Rajeev'U}/dL Normal 0.2 - 1. 0 [facility] Comment on above: Performed By: #### P OCGLUC #### [facility] [address] [place] [address] Dr. Karmen Mccormick LACTATE/LACTIC ACIDon 2021 Lactate [Moles/Vol] 1.5 mmol/L Normal 0.4-1.9 [facility] Comment on above: Performed By: #### P OCGLUC #### [facility] [address] [address] [address] Karmen Mccormick LIPASEon 03-27-2022 Lipase [Catalytic activity/Vol] 67.0 U/L Critically low 73.0-393.0 [facility] Comment on above: Performed By: #### P OCGLUC #### [facility] [address] [place] [address] Dr. Karmen Mccormick PH VENOUS BLOODon 03-27-2022 PCO2 VENOUS 30.3 mmHg Critically low 40.0-52.0 [facility] Comment on above: Performed By: #### P OCGLUC #### [facility] [address] [place] [address] Dr. Karmen Mccormick pH VENOUS 7.223 Critically low 7.330-7.430 [facility] Comment on above: Performed By: #### P OCGLUC #### [facility] [address] [place] [address] Dr. Karmen Mccormick POINT OF CARE GLUCOSEon 03-13 Glucose [Mass/Vol] 318 mg/dL Critically high [facility]106 [facility] Comment on above: Performed By: #### P OCGLUC #### [facility] [address] [place] [address] Dr. Karmen Mccormick Glucose [Mass/Vol] 289 mg/dL Critically high [facility]106 [facility] Comment on above: Performed By: #### P OCGLUC #### [facility] [address] [place] [address] Dr. Karmen Mccormick Glucose [Mass/Vol] 330 mg/dL Critically high -106 [facility] Comment on above: Performed By: #### P OCGLUC #### [facility] [address] [place] [address] Dr. Karmen Mccormick Glucose [Mass/Vol] 413 mg/dL Critically high -106 [facility] Comment on above: Performed By: #### P OCGLUC #### [facility] [address] [place] [address] Dr. Karmen Mccormick Glucose [Mass/Vol] 428 mg/dL Critically high 74-106 [facility] Comment on above: Performed By: #### B MP #### [facility] [address] [address] [address] Karmen Mccormick Glucose [Mass/Vol] 510 mg/dL Critically high 74-106 [facility] Comment on above: Result Comment: Resu lt Not Confirmed Performed By: #### A CETON #### [facility] [address] [address] [address] Karmen Mccormick Glucose [Mass/Vol] 587 mg/dL Critically high -106 [facility] Comment on above: Result Comment: Lab Draw Ordered Performed By: #### B MP #### [facility] [address] [place] [address] Dr. Karmen Mccormick PROF 14(COMP METB)on 022 Albumin [Mass/Vol] 3.1 g/dL Critically low 3.4-5.0 [facility] Comment on above: Performed By: #### P OCGLUC #### [facility] [address] [place] [address] Dr. Karmen Mccormick Albumin/Globulin [Mass ratio] 0.7 {ratio} Normal [facility] Comment on above: Performed By: #### P OCGLUC #### [facility] [address] [place] [address] Dr. Karmen Mccormick ALP [Catalytic activity/Vol] 108 U/L Normal 46-116 [facility] Comment on above: Performed By: #### P OCGLUC #### [facility] [address] [place] [address] Dr. Karmen Mccormick ALT [Catalytic activity/Vol] 14 U/L Normal 14-59 [facility] Comment on above: Performed By: #### P OCGLUC #### [facility] [address] [place] [address] Dr. Karmen Mccormick Anion gap [Moles/Vol] 29.9 mmol/L Normal [facility] Comment on above: Performed By: #### P OCGLUC #### [facility] [address] [address] [address] Karmen Mccormick AST [Catalytic activity/Vol] 8 U/L Critically low 15-37 [facility] Comment on above: Performed By: #### P OCGLUC #### [facility] [address] [address] [address] Karmen Mccormick Bilirubin [Mass/Vol] 0.5 mg/dL Normal 0.2-1.0 [facility] Comment on above: Performed By: #### P OCGLUC #### [facility] [address] [address] [address] Karmen Mccormick Calcium [Mass/Vol] 9.6 mg/dL Normal 8.5-10.1 [facility] Comment on above: Performed By: #### P OCGLUC #### [facility] [address] [address] [address] Karmen Mccormick Chloride [Moles/Vol] 95 mmol/L Critically low 98-107 [facility] Comment on above: Performed By: #### P OCGLUC #### [facility] [address] [address] [address] Karmen Mccormick CO2 [Moles/Vol] 11.3 mmol/L Critically low 21.0-32.0 [facility] Comment on above: Performed By: #### P OCGLUC #### [facility] [address] [address] [address] Karmen Mccormick Creatinine [Mass/Vol] 1.23 mg/dL Critically high 0.55-1.02 [facility] Comment on above: Performed By: #### P OCGLUC #### [facility] [address] [address] [address] Karmen Mccormick EGFR-AF FIJIAN 53 mL/min/1.73m2 Critically low >=60 [facility] Comment on above: Performed By: #### P OCGLUC #### [facility] [address] [address] [address] Karmen Mccormick EGFR-NON AF FIJIAN 43 mL/min/1.73m2 Critically low >=60 [facility] Comment on above: Performed By: #### P OCGLUC #### [facility] [address] [address] [address] Karmen Mccormick Globulin (S) [Mass/Vol] 4.5 g/dL Normal [facility] Comment on above: Performed By: #### P OCGLUC #### [facility] [address] [address] [address] Kamren Mccormick Glucose [Mass/Vol] 693 mg/dL Critically high 74-106 [facility] Comment on above: Result Comment: DILU ASHLEY Performed By: #### P OCGLUC #### [facility] [address] [address] [address] Karmen Mccormick Potassium [Moles/Vol] 5.2 mmol/L Critically high 3.5-5.1 [facility] Comment on above: Performed By: #### P OCGLUC #### [facility] [address] [place] [address] Dr. Karmen Mccormick Protein [Mass/Vol] 7.6 g/dL Normal 6.4-8.2 [facility] Comment on above: Performed By: #### P OCGLUC #### [facility] [address] [address] [address] Karmen Mccormick Sodium [Moles/Vol] 131 mmol/L Critically low 136-145 [facility] Comment on above: Performed By: #### P OCGLUC #### [facility] [address] [place] [address] Dr. Karmen Mccormick Urea nitrogen [Mass/Vol] 28.0 mg/dL Critically high 7.0-18.0 [facility] Comment on above: Performed By: #### P OCGLUC #### [facility] [address] [address] [address] Karmen Mccormick Urea nitrogen/Creatinine [Mass ratio] 22.8 mg/mg Normal [facility] Comment on above: Performed By: #### P OCGLUC #### [facility] [address] [place] [address] Dr. Karmen Mccormick PROF CHEM 8 (BAS METB)on Anion gap [Moles/Vol] 23.1 mmol/L Normal [facility] Comment on above: Performed By: #### B MP #### [facility] [address] [address] [address] Karmen Mccormick Calcium [Mass/Vol] 9.4 mg/dL Normal 8.5-10.1 [facility] Comment on above: Performed By: #### B MP #### [facility] [address] [address] [address] Karmen Mccormick Chloride [Moles/Vol] 103 mmol/L Normal 98-107 [facility] Comment on above: Performed By: #### B MP #### [facility] [address] [address] [address] Karmen Mccormick CO2 [Moles/Vol] 16.4 mmol/L Critically low 21.0-32.0 [facility] Comment on above: Performed By: #### B MP #### [facility] [address] [address] [address] Karmen Mccormick Creatinine [Mass/Vol] 1.08 mg/dL Critically high 0.55-1.02 [facility] Comment on above: Performed By: #### B MP #### [facility] [address] [address] [address] Karmen Mccormick EGFR-AF FIJIAN >60 Normal >=60 [facility] Comment on above: Performed By: #### B MP #### [facility] [address] [address] [address] Karmen Mccormick EGFR-NON AF FIJIAN 50 mL/min/1.73m2 Critically low >=60 [facility] Comment on above: Performed By: #### B MP #### [facility] [address] [address] [address] Karmen Mccormick Glucose [Mass/Vol] 368 mg/dL Critically high 74-106 [facility] Comment on above: Performed By: #### B MP #### [facility] [address] [address] [address] Karmen Mccormick Potassium [Moles/Vol] 4.5 mmol/L Normal 3.5-5.1 [facility] Comment on above: Performed By: #### B MP #### [facility] [address] [address] [address] Karmen Mccormick Sodium [Moles/Vol] 138 mmol/L Normal 136-145 [facility] Comment on above: Performed By: #### B MP #### [facility] [address] [address] [address] Karmen Mccormick Urea nitrogen [Mass/Vol] 23.0 mg/dL Critically high 7.0-18.0 [facility] Comment on above: Performed By: #### B MP #### [facility] [address] [place] [address] Dr. Karmen Mccormick Urea nitrogen/Creatinine [Mass ratio] 21.3 mg/mg Normal [facility] Comment on above: Performed By: #### B MP #### [facility] [address] [place] [address] Dr. Karmen Mccormick PROTIMEon 03-27-2022 INR Coag (PPP) [Relative time] 0.99 {INR} Normal [facility] Comment on above: Performed By: #### B MP #### [facility] [address] [place] [address] Dr. Karmen Mccormick INR GUIDELINES SEE BELOW Normal [facility] Comment on above: Result Comment: ELVIRA RED INR: 2.0 - 3.0 CONDITIONS NOT LISTED BELOW 2.5 - 3.5 FOR PROSTHETIC HEART VALVE REPLACEMENT 2.5 - 3.5 RECURRENT THROMBOSIS Performed By: #### B MP #### [facility] [address] [place] [address] Dr. Karmen Mccormick PT Coag (PPP) [Time] 10.7 s Normal 9.0-11.6 [facility] Comment on above: Performed By: #### B MP #### [facility] [address] [place] [address] Dr. Karmen Mccormick PTTon 03-27-2022 aPTT Coag (Bld) [Time] 22.0 s Critically low 22.3-36.2 [facility] Comment on above: Performed By: #### A CETON #### [facility] [address] [place] [address] Dr. Karmen Mccormick TROPONIN, HIGH SENSITIVITYon 03-27-2022 HSTROP 54.4 pg/mL Critically high 4.0-51.3 [facility] Comment on above: Result Comment: CUT- OFF POINTS HAVE BEEN ESTABLISHED BASED ON THE FOURTH UNIVERSAL DEFINITIONS OF MYOCARDIAL INFARCTION. THE UPPER REFERENCE LIMIT (URL) OF TROPONIN, DEFINED THE 99TH PERCENTILE OF cTnI DISTRIBUTION IN A REFERENCE POPULATION, HAS BEEN CONFIRMED THE DECISION THRESHOLD FOR PR DIAGNOSIS. Performed By: #### C BC #### [facility] [address] [address] [address] Karmen Mccormick HSTROP 59.3 pg/mL Critically high 4.0-51.3 [facility] Comment on above: Result Comment: CUT- OFF POINTS HAVE BEEN ESTABLISHED BASED ON THE FOURTH UNIVERSAL DEFINITIONS OF MYOCARDIAL INFARCTION. THE UPPER REFERENCE LIMIT (URL) OF TROPONIN, DEFINED THE 99TH PERCENTILE OF cTnI DISTRIBUTION IN A REFERENCE POPULATION, HAS BEEN CONFIRMED THE DECISION THRESHOLD FOR PR DIAGNOSIS. Performed By: #### P OCGLUC #### [facility] [address] [address] [address] Karmen Mccormick TSHon 03-27-2022 TSH 1.327 uIU/mL Normal 0.358-3.740 [facility] Comment on above: Performed By: #### P OCGLUC #### [facility] [address] [place] [address] Dr. Karmen Mccormick Vital Signs Date Time Vital Sign Value Performing Clinician Faci lity 04-05-2025 11:32-0400 Body height 177.8 cm Adan Pearson DPM Work Phone: [facility] 04-05-2025 11:32-0400 Body mass index (BMI) [Ratio] 29.41 kg/m2 Adan Pearson DPM Work Phone: [facility] 04-05-2025 11:32-0400 Body weight 92.99 kg Adan Pearson DPM Work Phone: [facility] 04-05-2025 11:32-0400 Respiratory rate 16 /min Adan Pearson DPM Work Phone: [facility] 12-21-2024 10:26-0400 Body height 177.8 cm Lety Rothman MD Work Phone: [facility] 12-21-2024 10:26-0400 Body mass index (BMI) [Ratio] 29.41 kg/m2 Lety Rothman MD Work Phone: [facility] 12-21-2024 10:26-0400 Body weight 92.99 kg Lety Rothman MD Work Phone: [facility] 12-21-2024 10:26-0400 Diastolic blood pressure 66 mm[Hg] Lety Rothman MD Work Phone: [facility] 12-21-2024 10:26-0400 Heart rate 55 /min Lety Rothman MD Work Phone: [facility] 12-21-2024 10:26-0400 Respiratory rate 16 /min Lety Rothman MD Work Phone: [facility] 12-21-2024 10:26-0400 SaO2% (BldA) [Mass fraction] 97 % Lety Rothman MD Work Phone: [facility] 12-21-2024 10:26-0400 Systolic blood pressure 124 mm[Hg] Lety Rothman MD Work Phone: [facility] 11-16-2024 13:14-0500 Body height 177.8 cm Adan Pearson DPM Work Phone: [facility] 11-16-2024 13:14-0500 Body mass index (BMI) [Ratio] 30.13 kg/m2 Adan Pearson DPM Work Phone: [facility] 11-16-2024 13:14-0500 Body weight 95.25 kg Adan Pearson DPM Work Phone: [facility] 11-16-2024 13:14-0500 Respiratory rate 18 /min Adan Pearson DPM Work Phone: [facility] 06-14-2024 11:12-0400 Body height 180.3 cm Lety Rothman MD Work Phone: [facility] 06-14-2024 11:12-0400 Body mass index (BMI) [Ratio] 29.15 kg/m2 Lety Rothman MD Work Phone: [facility] 06-14-2024 11:12-0400 Body weight 94.8 kg Lety Rothman MD Work Phone: [facility] 06-14-2024 11:12-0400 Diastolic blood pressure 78 mm[Hg] Lety Rothman MD Work Phone: [facility] 06-14-2024 11:12-0400 Heart rate 56 /min Lety Rothman MD Work Phone: [facility] 06-14-2024 11:12-0400 Respiratory rate 16 /min Lety Rothman MD Work Phone: [facility] 06-14-2024 11:12-0400 Systolic blood pressure 152 mm[Hg] Lety Rothman MD Work Phone: [facility] Healthcare Encounters Encounter Date Encounter Type Care Provider Facility Start: 04-05-2025 End: 04-05-2025 Bamboo flowsmaite Pearson DPM Work Phone: [facility] Start: 04-05-2025 End: 04-05-2025 Bamboo flowsheet Adan Pearson DPM Work Phone: [facility] Start: 04-05-2025 End: 04-05-2025 Office outpatient visit 15 minutes Adan Pearson DPM Work Phone: [facility] Comment on above: Contusion of left fo ot, initial encounter (Primary Dx); Diabetes mellitus due to underlying condition with diabetic polyneuropathy, without long-term current use of insulin (HCC); Pain due to onychomycosis of toenails of both feet Start: 04-05-2025 End: 04-05-2025 ambulatory ADAN PEARSON Not Available Start: 12-25-2024 End: 12-26-2024 Telephone encounter Lety Rothman MD Work Phone: [facility] Comment on above: Med Refill Start: 12-21-2024 End: 12-21-2024 Bamboo flowsheet Lety Rothman MD Work Phone: [facility] Start: 12-21-2024 End: 12-21-2024 Bamboo flowsheet Lety Rothman MD Work Phone: [facility] Start: 12-21-2024 End: 12-21-2024 Office outpatient visit 25 minutes Lety Rothman MD Work Phone: [facility] Comment on above: Type 2 diabetes natalie itus with hyperglycemia, with long-term current use of insulin (CMS/[facility]) (Primary Dx); Primary hypertension ([facility]); Encounter for dietary consultation; Insulin long-term use ([facility]); Vitamin D deficiency; Hyperlipemia, mixed (CMS/[facility]); Hypoglycemia Start: 12-21-2024 End: 12-21-2024 ambulatory LETY ROTHMAN Not Available Start: 11-21-2024 End: 11-21-2024 ambulatory Dav Cardenas Facility:[facility] [place] Start: 11-16-2024 End: 11-16-2024 Office outpatient visit 15 minutes Adan eParson DPM Work Phone: [facility] Comment on [...] Bamboo flowsheet Lety Rothman MD Work Phone: [facility] Start: 06-14-2024 End: 06-14-2024 Bamboo flowsheet Lety Rothman MD Work Phone: [facility] Start: 06-14-2024 End: 06-14-2024 Office outpatient visit 25 minutes Lety Rothman MD Work Phone: [facility] Comment on above: Hypoglycemia (Primar y Dx); Type 2 diabetes mellitus with hyperglycemia, with long-term current use of insulin ([facility]); Primary hypertension ([facility]); Encounter for dietary consultation; Insulin long-term use ([facility]); Vitamin D deficiency; Hyperlipemia, mixed ([facility]) Start: 06-14-2024 End: 06-14-2024 ambulatory LETY [...] Evaluation and management of inpatient [facility] Facility:H1 Procedures Date Procedure Procedure Detail Performing Clinician Start: 12-21-2024 Gluc bld gluc mntr d ev cleared fda spec home use Lety Rothman MD Work Phone: Start: 06-14-2024 End: 06-14-2024 Gluc bld gluc mntr dev cleared fda spec home use Lety Rothman MD Work Phone: Start: 03-28-2022 Drainage of Perineum Skin, External Approach [facility] Start: 03-09-2017 Mammography Lety motta MD Work Phone: Plan of Treatment Date Care Activity Detail Author Start: 05-14-2025 Influenza vaccination Influenza Vacc ine (#1) [facility] Start: 04-19-2025 End: 04-19-2025 Patient encounter procedure 04/19/2025 10:50 AM EDT Office Visit [facility] [address] [place] [address] Lety Rothman MD [address] [place] [address] [facility] Start: 04-05-2025 End: 04-05-2025 Patient encounter procedure 04/05/2025 11:50 AM EDT Office Visit [facility] [address] [facility] [address] [place] [address] Adan Pearson, DEANNA [address] [facility] [address] [place] [address] Diabetes mellitus due to underlying condition with [...] PODIATRY [address] [place] [address] Adan Pearson DPM [address] [facility] [address] [place] [address] [facility] Start: 12-21-2024 End: 12-21-2024 Patient encounter procedure 12/21/2024 10:50 AM EDT Office Visit [facility] [address] [place] [address] Lety Rothman MD [address] [place] [address] Type 2 diabetes mellitus with hyperglycemia, with long-term current use of insulin ([facility]) [facility] Comment on above: Type 2 diabetes natalie itus with hyperglycemia, with long-term current use of insulin ([facility]) Start: 12-06-2024 End: 12-06-2024 Patient encounter procedure 12/06/2024 11:10 AM EDT Office Visit [facility] [address] [place] [address] Lety Rothman MD [address] [place] [address] [facility] Start: 11-16-2024 End: 11-16-2024 Patient encounter procedure 11/16/2024 2:30 PM EST Office Visit [facility] [address] [place] [address] Adan Pearson DPM [address] [facility] [address] [place] [address] Arrived [facility] Comment on above: Arrived Start: 09-27-2024 End: 01-15-2025 Patient encounter procedure 09/27/2024 10:50 AM EST Office Visit [facility] [address] [place] [address] Lety Rothman MD [address] [place] [address] [facility] Start: 08-17-2024 End: 08-17-2024 Patient encounter procedure 08/17/2024 10:45 AM EST Procedure Visit [facility] [address] [place] [id number] Cory Albright DPM [address] [place], [place] [phone] [facility] Start: 06-14-2024 End: 06-14-2025 25-hydroxyvitamin D3 [Mass/volume] in Serum or Plasma Vitamin D 25 hydroxy Total Lab Routine Type 2 diabetes mellitus with hyperglycemia, with long-term current use of insulin ([facility]) Expected: 06/14/2024 (Approximate), Expires: 06/14/2025 [facility] Comment on above: Expected: 06/14/2024 (Approximate), Expires: 06/14/2025 Start: 06-14-2024 End: 06-14-2025 C-peptide C-peptide Lab Routine Type 2 diabetes mellitus with hyperglycemia, with long-term current use of insulin ([facility]) Expected: 06/14/2024 (Approximate), Expires: 06/14/2025 [facility] Work Phone: Comment on above: Expected: 06/14/2024 (Approximate), Expires: 06/14/2025 Start: 06-14-2024 End: 06-14-2025 Lipid 1996 panel - Serum or Plasma Lipid panel Lab Routine Type 2 diabetes mellitus with hyperglycemia, with long-term current use of insulin ([facility]/HCC) Expected: 06/14/2024 (Approximate), Expires: 06/14/2025 [facility] Comment on above: Expected: 06/14/2024 (Approximate), Expires: 06/14/2025 Start: 06-14-2024 End: 06-14-2025 Microalbumin/Creatinine panel in random Urine Microalbumin / creatinine urine ratio Lab Routine Type 2 diabetes mellitus with hyperglycemia, with long-term current use of insulin ([facility]) Expected: 06/14/2024 (Approximate), Expires: 06/14/2025 [facility] Comment on above: Expected: 06/14/2024 (Approximate), Expires: 06/14/2025 Start: 06-14-2024 End: 06-14-2025 Renal function panel Renal function panel Lab Routine Type 2 diabetes mellitus with hyperglycemia, with long-term current use of insulin ([facility]) Expected: 06/14/2024 (Approximate), Expires: 06/14/2025 [facility] Comment on above: Expected: 06/14/2024 (Approximate), Expires: 06/14/2025 Start: 06-14-2024 End: 06-14-2024 Patient encounter procedure 06/14/2024 10:40 AM EDT Office Visit [facility] [address] [place] [address] Lety Rothman MD [address] [place] [address] Type 2 diabetes mellitus with hyperglycemia, with long-term current use of insulin ([facility]) [facility] Comment on above: Type 2 diabetes natalie itus with hyperglycemia, with long-term current use of insulin ([facility]) Start: 05-14-2024 Influenza vaccination Influenza Vacc ine (#1) [facility] Start: 06-19-2023 Pneumococcal Vaccine : 65+ Years (2 of 2 - PCV) Pneumococcal Vaccine: 65+ Years (2 of 2 - PCV) [facility] Start: 03-09-2018 Screening for malign ant neoplasm of breast Mammogram [facility] Start: 1955 Screening for malign ant neoplasm of colon [facility] Immunizations Immunization Date Immunization Notes Care Provider Fa cility 06-03-2024 influenza virus vacc ine, unspecified formulation Lety Rothman MD Work Phone: [facility] 01-21-2024 zoster vaccine recombinant A ata Rothman MD Work Phone: [facility] 06-16-2023 ABRYSVO - Respirator y syncytial virus (RSV), vaccine, bivalent, protein subunit RSV prefusion F, diluent reconstituted, 0.5 mL, PF Lety Rothman MD Work Phone: [facility] 06-16-2023 Influenza, High-dose Seasonal, Quadrivalent, Preservative Free Lety Rothman MD Work Phone: [facility] 06-16-2023 SARS-COV-2 (COVID-19 ) vaccine, mRNA, spike protein, LNP, PF, 50 mcg/0.5 mL Lety Rothman MD Work Phone: [facility] 06-16-2023 zoster vaccine recombinant A ata Rothman MD Work Phone: [facility] 06-19-2022 Influenza, High-dose Seasonal, Quadrivalent, Preservative Free Lety Rothman MD Work Phone: [facility] 06-19-2022 pneumococcal polysaccharide vaccine, 23 valent Lety Rothman MD Work Phone: [facility] 06-19-2022 SARS-COV-2 (COVID-19 ) vaccine, mRNA, spike protein, LNP, bivalent, preservative free, 30 mcg/0.3 mL dose, emiliano-sucrose formulation Lety Rothman MD Work Phone: [facility] 05-07-2022 diphtheria, tetanus toxoids and pertussis vaccine Lety Rothman MD Work Phone: [facility] 09-02-2021 Pfizer Purple Cap SARS-CoV-2 Vaccination Lety Rothman MD Work Phone: [facility] 12-10-2020 Pfizer Purple Cap SARS-CoV-2 Vaccination Lety Rothman MD Work Phone: [facility] 11-18-2020 Pfizer Purple Cap SARS-CoV-2 Vaccination Lety Rothman MD Work Phone: [facility] 01-06-2019 tetanus toxoid, redu holley diphtheria toxoid, and acellular pertussis vaccine, adsorbed Lety Rothman MD Work Phone: [facility] 06-29-2017 influenza, injectabl e, quadrivalent, preservative free Lety Rothman MD Work Phone: [facility] 06-17-2015 influenza, seasonal, injectable, preservative free Lety Rothman MD Work Phone: [facility] 09-10-2014 influenza, injectabl e, quadrivalent, contains preservative Lety Rothman MD Work Phone: [facility] 07-22-2010 influenza, seasonal, injectable Lety Rothman MD Work Phone: [facility] Payers Date Payer Category Payer Medicare (Managed Care) [facility] MEDIC[facility] [id number] 2024 Medicare [id number] 2022 Medicare [employer] MED[employer] ADVANTAGE [employer] MED[employer]ARE [id number] 2022-Present [address] [address] [place] [address] [id number] 2020 Medicare [id number] 1959 Medicare [id number] 1955 Unknown [id number] [id number]. 2.593 1953 Unknown [id number] [id number]. 2.593 1953 Unknown [id number] 2.16.840.1.299629.3.579. 2.593 1953 Unknown [id number] 2.16.840.1.677336.3.579. 2.593 1953 Unknown [id number] 2.16.840.1.621190.3.579. 2.593 1953 Unknown [id number] 2.16.840.1.957568.3.579. 2.593 1953 Unknown [id number] 2.16.840.1.046730.3.579. 2.593 1953 Unknown [id number] 2.16.840.1.818827.3.579. 2.593 1953 Unknown [id number] 2.16.840.1.334046.3.579. 2.727 1953 Unknown [id number] 2.16.840.1.735371.3.579. 2.1259 1953 Unknown [id number] 2.16.840.1.589264.3.579. 2.1259 1953 Unknown [id number] 2.16.840.1.007465.3.579. 2.1259 1953 Unknown [id number] 2.16.840.1.693489.3.579. 2.1259 1953 Unknown [id number] [id number]. 2.1259 Social History Date Type Detail Facility Start: 04-20-2023 Tobacco smoking status UTIS Ex-smoke r [facility] History of tobacco use Current smoker [facility] History of tobacco use Cigarette Smoker [facility] History of tobacco use Passive smoker [facility] Start: 05-29-2024 End: 04-05-2025 Alcoholic beverage intake Ex-drinker (finding) [facility] Start: 04-18-2024 End: 11-16-2024 [facility] Start: 04-18-2024 End: 11-16-2024 Tobacco use panel [facility] Start: 04-20-2023 Tobacco Comment Last smoked: 1-3 mon ths [facility] Start: 04-20-2023 Alcohol Comment caffeine: 2-3 cups/d ay [facility] Start: 1955 Sex assigned at Not on file [facility] Medical Equipment Procedure Code Equipment Code [...] car[place] instead of [place] my mistake sorry! [facility] 12-25-2024 Miscellaneous Notes Formattin g of this note might be different from the original. Please send zofran to [facility] [place] instead of [place] my mistake sorry! documented in this encounter [facility] 12-25-2024 Telephone encount er Note Pt needs zofran for nausea, accidentally took .5 instead of .25 for first dose of ozempic. Please send to [facility]. Thank you! [facility] 12-25-2024 Miscellaneous Notes Formattin g of this note might be different from the original. Pt needs zofran for nausea, accidentally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
[2025-06-20] MEDS: OXYCODONE HCL 5 MG TABLET PO (18:18)
[2025-06-20] MEDS: TRAZODONE HCL 50 MG TABLET PO (21:32)
[2025-06-21] VITALS (18 sets, daily range): BP systolic 96–124; BP diastolic 59–72; PULSE 51–66; TEMP 36.6–36.9; O2SAT 94–96
[2025-06-21 05:43] LABS: Hematocrit 39.5 % (36.0-48.0); Hemoglobin 12.8 g/dL (12.0-16.0); Mean Corpuscular HGB Conc 32.4 g/dL (29.9-35.2); Mean Corpuscular Hemoglobin 28.4 pg (26.7-34.0); Mean Corpuscular Volume 87.6 fL (81.0-99.0); Platelet Count 300 10^3/uL (150-450); Red Blood Count 4.51 10^6/uL (4.20-5.40); White Blood Count 10.7 10^3/uL (4.0-11.0)
[2025-06-21] MEDS: DICYCLOMINE HCL 10 MG CAPSULE PO (05:43)
[2025-06-21] MEDS: GABAPENTIN 300 MG CAPSULE PO ×3 (05:43→21:22)
[2025-06-21 05:53] LABS: Anion Gap 12.1; Blood Urea Nitrogen 32.0 mg/dL (7.0-18.0); Calcium 8.9 mg/dL (8.5-10.1); Carbon Dioxide 24.9 mmol/L (21.0-32.0); Chloride 105 mmol/L (98-107); Estimated GFR (African America 46 (>=60 mL/min/1.73m^2); Estimated GFR (Non-African Ame 38 (>=60 mL/min/1.73m^2); Glucose 228 mg/dL (74-106); Potassium 4.0 mmol/L (3.5-5.1); Sodium 138 mmol/L (136-145)
[2025-06-21] MEDS: 0.9 % SODIUM CHLORIDE 500 ML IV (08:17)
[2025-06-21] MEDS: ATORVASTATIN CALCIUM 40 MG TABLET 80 MG PO (08:19)
[2025-06-21] MEDS: ASPIRIN 81 MG TABLET.DR PO (08:19)
[2025-06-21] MEDS: BUPROPION HCL 100 MG SR TABLET 12H PO (08:19)
[2025-06-21] MEDS: ENOXAPARIN SODIUM 40 MG/0.4 ML SYRINGE SUBQ (08:19)
[2025-06-21] MEDS: SENNOSIDES/DOCUSATE SODIUM 1 TAB TABLET PO (08:20)
[2025-06-21] MEDS: ISOSORBIDE MONONITRATE 30 MG TAB.ER.24H 60 MG PO (08:20)
[2025-06-21] MEDS: 0.9 % SODIUM CHLORIDE 1,000 ML 125 ML IV (08:20)
[2025-06-21] MEDS: BUSPIRONE HCL 10 MG TABLET 5 MG PO ×2 (08:20→21:22)
[2025-06-21] MEDS: PANTOPRAZOLE SODIUM 40 MG TABLET.DR PO (08:20)
--- NOTE | 2025-06-21 08:20 | CM.NOTE ---
Rounds made with Dr. Lorenzo, discussed plan of care with pt. PT and OT will evaluate pt today for discharge planning. Cardiology will also consult on pt today for further recommendations.
[2025-06-21] MEDS: INSULIN GLARGINE 300 UNIT/3 ML INSULN.PEN 20 UNIT SQ (08:21)
[2025-06-21] MEDS: INSULIN ASPART 300 UNIT/3 ML PEN SUBQ ×4 (08:21→22:05)
--- NOTE | 2025-06-21 09:48 | PM.PN ---
Progress Note: Subjective Subjective Interval history: Patient is feeling better. Resolution of vomiting. Patient is eating breakfast without any vomiting or nausea. No bowel movement. No fever or chills. No chest pain or palpitation. Exam Narrative Exam Narrative: [pt is awake and alert. oriented to place, time and person HEENT: [place] conjunctiva and NL buccal mucosa Neck: Supple, no tenderness Endocrine: No Thyromegaly. Vascular: No JVD or carotid bruit. Lymphatic: No cervical lymphadenopathy. Chest: CTA no DTP. Heart RRR, no extra sound or murmur. Abd: Soft, no tenderness in the abdomen, no rigidity no rebound and no rigidity. Increase abd girth therefore clinically I could not exclude the possibility of intra abd mass or organomegaly. LE: No cyanosis or clubbing, no varices or edema. Neuro: A A O. Nl speech, comprehension and attention. Nl and symetrical motor and tone examination through out. []] Constitutional Vital Signs, click to edit/add: Last Vital Signs Temp 98.0 F 06/21/25 07:44 Pulse 57 L 06/21/25 07:56 Resp 16 06/21/25 07:44 BP 112/65 06/21/25 07:44 Pulse Ox 96 06/21/25 07:44 O2 Del Method Room Air 06/21/25 07:44 Progress Note: Objective Labs Labs: Short CBC 06/21/25 Range/Units 05:34 WBC 10.7 (4.0-11.0) 10^3/uL Hgb 12.8 (12.0-16.0) g/dL Hct 39.5 (36.0-48.0) % Plt Count 300 (150-450) 10^3/uL BMP 06/21/25 05:34 Sodium 138 Potassium 4.0 Chloride 105 Carbon Dioxide 24.9 BUN 32.0 H Creatinine 1.37 H Glucose 228 H Calcium 8.9 Progress Note: A&P Assessment and Plan (1) Vomiting: (2) Elevated troponin: (3) Chest pain: Plan Chest pain, substernal. Could be related to GI Her troponin is positive. Patient has chronic elevation of the troponin. EKG does not show ST elevation or depression. No prior history of CAD or stenting. I do not suspect patient is having ACS . Patient had stress test 5 months ago which came back negative for ischemia. Patient had an echocardiogram 6 months ago which came back positive for hypertrophic left ventricle suspicious for hypertrophic obstructive cardiomyopathy Her chronic elevation of the troponin could be related to hypertrophic cardiomyopathy. Patient is on Imdur. Patient had received dose of Plavix and Lovenox. Continue aspirin. Avoid aggressive diuresis in the setting of possible hypertrophic cardiomyopathy. Avoid aggressive blood pressure management in the setting of possible hypertrophic cardiomyopathy. Consideration for calcium brady instead of beta-brady. Consideration to discontinue alpha-brady Cardiac consultation. Defer further needed diagnostic and therapeutic intervention related to her cardiovascular issues to cardiovascular disease. Mild ROC in the borderline bradycardia Holding lisinopril and beta-brady IV fluid infusion to support her volume in the setting of possible hypertrophic cardiomyopathy Vomiting Improved since yesterday. CAT scan of the abdomen showed he had a hernia otherwise no acute intra-abdominal process. No fever or chills. No diarrhea to suggest enteritis. No acidosis. Normal LFTs. Normal lipase. Normal kidney function. Broad differential diagnosis including but not limited to gastritis, gastroparesis, side effect of medication such as GLP-1, SSRI SNRI combination others not listed Reduced the dose of SSRI and SNRI Resolution of her GI symptoms. Patient is tolerating her diet. Resolution of vomiting and abdominal tenderness Diabetes. Mild hyperglycemia. No DKA Resume long-acting and sliding scale coverage. I increased her Lantus dose for better control. Continue to titrate to keep blood sugar between 125 and 180. Hypertension Continue lisinopril and beta-brady. Patient may need to be on calcium brady for suspected hypertrophic cardiomyopathy. Discontinue alpha-brady. Pending for cardiac evaluation recommendation. Chronic, subacute medical conditions not listed above, abnormal labs and imaging. These would need to be addressed. Could be addressed later on or in the outpatient setting by PCP collaboration with other needed outpatient providers when time and condition are appropriate. Urinary Catheter Management Urinary Catheter Management Pure Wick: Cath placed during this visit: no
--- NOTE | 2025-06-21 11:45 | SWNOTE1 ---
Important Message from Medicare reviewed and discussed with patient. Pt. verbalized understanding and signed the form. Original given to patient and copy placed in patient?s chart.
--- NOTE | 2025-06-21 11:45 | SWNOTE1 ---
SW did review therapy evals and recommendation of SNF. During morning huddle it was voiced pt is agreeable to SNF. SW spoke with pt and significant other in pt's room. SW let pt know that a short term skilled stay is recommended so pt can get stronger and back to her baseline. Pt is in agreement with this. Pt did ask if it would be for 2 weeks and where it would be? SW did explain that pt is a precert and her length of stay would be guided by insurance. SW provided pt with list from Medicare.gov with star ratings. Pt does live in [place]. SW let pt know the 2 facilities in [place]. [facility] and [facility]. Pt voiced she does not the [facility], she has been there before and bad food and did not bring food on time. Pt would like SW to look in to [facility]. SW reached out to Kristine at [facility]. They do not have a femal bed open at this time. SW to speak with pt.
[2025-06-21] MEDS: ACETAMINOPHEN 325 MG TABLET 650 MG PO ×2 (12:06→22:03)
[2025-06-21] MEDS: FLUOXETINE HCL 10 MG CAPSULE PO (12:11)
--- NOTE | 2025-06-21 12:52 | SWNOTE1 ---
SW updated pt that [facility] does not have any openings. SW reviewed the next closest facilities from the Medicare.gov list. Pt does not want [facility], but is open to SW sending referral to [facility]. Referral sent to [facility]. Referral included face sheet, ED note, H&P, provider notes, case management report, nursing notes, diagnostic imaging, med list, and PT/OT notes. SW also sent insurance card.
--- NOTE | 2025-06-21 13:05 | SWNOTE1 ---
FIORDALIZA did email Jerel and Milla at [facility] to let them know referral has been sent. FIORDALIZA also called Milla, but she was meeting with residents at [facility] and will call back.
[2025-06-21] MEDS: INSULIN GLARGINE 300 UNIT/3 ML INSULN.PEN 12 UNIT SQ (13:36)
--- NOTE | 2025-06-21 14:33 | SWNOTE1 ---
FIORDALIZA did receive an email back from Milla at [facility] and she is reviewing referral and will let FIORDALIZA know.
--- NOTE | 2025-06-21 15:01 | SWNOTE1 ---
SW received an email from Milla at [facility] and they are able to accept and will start precert.
--- NOTE | 2025-06-21 15:27 | SWNOTE1 ---
SW updated pt that [facility] has accepted and started precert for her to go there for rehab. Pt voiced understanding.
--- NOTE | 2025-06-21 18:35 | PM.CACN ---
History of Present Illness History of Present Illness Consult date: 06/21/25 Requesting physician: Nichole Lorenzo Chief complaint: ELEVATED TROPONIN, VOMITING Narrative: Patient is a 69 y/o F with known cardiac hx of HTN, HLD, cardiomyopathy who presented to [facility] with c/o uncontrolled nausea/vomiting, increased weakness and increased falls. Vomiting sx's suspected to be related to gastritis vs gastroparesis vs combo of medication side effects. CT noted hiatal hernia. Sx's are improved as of today. Cardiology was consulted due to elevated troponin. She did not present with c/o CP. HStroponin level was at 90, elevated to 102 yesterday. Notably, she also had an admission back in December, where her troponin elevated into the 200s. She had a stress test after this admission which showed no evidence of ischemia on nuclear or EKG portion. She also had an ECHO at this time which noted severe concentric LVH concerning for HOCM - she has not followed up with cardiology on this. Upon exam she states she is feeling well today. She has been able to eat without issues. She notes at home she has been having MCCLURE but she does very little activity. She has been experiencing intermittent midsternal/left sided chest pain that can occur with rest or exertion, can last a few minutes then resolve. No chest pain sx's today. Review of Systems ROS Status of ROS 10 or more systems reviewed and unremarkable except as noted in history and below Cardiovascular Reports: chest pain and shortness of breath with exertion [facility] Medical History (Updated 06/20/25 @ 10:15 by Nichole Lorenzo MD) Hysterectomy planned Hyperglycemia ?R73.9 - Hyperglycemia, unspecified (ICD-10) Acute UTI ?N39.0 - Urinary tract infection, site not specified (ICD-10) Elevated troponin ?R79.89 - Other specified abnormal findings of blood chemistry (ICD-10) Nausea, vomiting, and diarrhea ?R11.2 - Nausea with vomiting, unspecified (ICD-10) ?R19.7 - Diarrhea, unspecified (ICD-10) Family History (Updated 06/20/25 @ 02:23 by Berta Garcia RN) Father Family history of CHF (congestive heart failure) Family history of diabetes mellitus Sister Family history of cancer Brother Family history of cancer Mother Family history of hypertension Social History (Updated 06/20/25 @ 02:24 by Berta Garcia RN) Within the past year, how often did you have a drink containing alcohol: never Score interpretation: A score less than 3 is consistent with normal alcohol consumption. Smoking status: Never smoker Second hand tobacco smoke exposure: No Non-prescribed substance use: denies use Previous occupational history: retired Highest level of school completed/degree received: high school graduate Are you now , , , , never or living with a partner: In a typical week, how many times do you talk on the telephone with family, friends, or neighbors: 3 or more times per week How often do you get together with friends or relatives: 3 or more times per week Little interest or pleasure in doing things: not at all Feeling down, depressed, or hopeless: not at all Meds Home Medications and Allergies Home Medications ?Medication ?Instructions ?Recorded ?Confirmed ?Type atorvastatin 80 mg tablet 80 mg PO DAILY 06/28/23 06/20/25 History buspirone 15 mg tablet 15 mg PO BID 06/28/23 06/20/25 History dapagliflozin propanediol 10 mg 10 mg PO DAILY 06/28/23 06/20/25 History tablet (Farxiga) insulin glargine 100 unit/mL (3 30 unit subcut BEDTIME 06/28/23 06/20/25 History mL) subcutaneous pen (Lantus Solostar U-100 Insulin) metoprolol succinate 50 mg 50 mg PO DAILY 06/28/23 06/20/25 History tablet,extended release 24 hr nitroglycerin 0.4 mg sublingual 0.4 mg sublingual Q5M PRN chest 06/28/23 06/20/25 History tablet pain pantoprazole 40 mg tablet,delayed 40 mg PO DAILY 06/28/23 06/20/25 History release prazosin 2 mg capsule 2 mg PO .q hs 06/28/23 06/20/25 History aspirin 81 mg capsule 81 mg PO DAILY #30 caps 01/02/25 06/20/25 Rx gabapentin 300 mg capsule 300 mg PO TID 01/02/25 06/20/25 History insulin lispro 100 unit/mL 10 unit subcut TIDWM 01/02/25 06/20/25 History subcutaneous pen lisinopril 20 mg tablet 20 mg PO DAILY 01/02/25 06/20/25 History bupropion HCl 200 mg tablet,12 hr 200 mg PO QAM 06/20/25 06/20/25 History sustained-release fluoxetine 60 mg tablet 60 mg PO DAILY 06/20/25 06/20/25 History isosorbide mononitrate 30 mg 60 mg PO BID 06/20/25 06/20/25 History tablet,extended release 24 hr Allergies Allergy/AdvReac Type Severity Reaction Status Date / Time No Known Drug Allergies Allergy Verified 06/19/25 18:42 Exam Constitutional Vital Signs, click to edit/add: Last Vital Signs Temp 97.9 F 06/21/25 15:27 Pulse 64 06/21/25 17:55 Resp 16 06/21/25 15:27 BP 124/72 06/21/25 15:27 Pulse Ox 94 L 06/21/25 15:27 O2 Del Method Room Air 06/21/25 15:27 Common normals: no apparent distress, oriented x3 and alert HENMT Common normals: normocephalic and head/scalp atraumatic Eye Common normals: EOMs intact bilaterally and conjunctivae normal Neck & C-Spine Common normals: full ROM, supple and no JVD Chest Common normals: inspection of chest normal Cardio Common normals: no JVD, regular rate, regular rhythm, S1 normal heart sound and S2 normal heart sound Heart sounds: murmur GI Common normals: Normal to inspection, nondistended, normoactive bowel sounds present Extremity Common normals: normal to inspection and no clubbing, cyanosis or edema Neuro Common normals: oriented x3 and moves all extremities Results Labs and Meds Lab results: CBC 06/21/25 Range/Units 05:34 WBC 10.7 (4.0-11.0) 10^3/uL RBC 4.51 (4.20-5.40) 10^6/uL Hgb 12.8 (12.0-16.0) g/dL Hct 39.5 (36.0-48.0) % Plt Count 300 (150-450) 10^3/uL Comprehensive Metabolic Panel 06/21/25 Range/Units 05:34 Sodium 138 (136-145) mmol/L Potassium 4.0 (3.5-5.1) mmol/L Chloride 105 (98-107) mmol/L Carbon Dioxide 24.9 (21.0-32.0) mmol/L BUN 32.0 H (7.0-18.0) mg/dL Creatinine 1.37 H (0.55-1.02) mg/dL Glucose 228 H (74-106) mg/dL Calcium 8.9 (8.5-10.1) mg/dL Intake and Output 06/21/25 06/21/25 06/21/25 07:59 15:59 23:59 Intake Total 240 / 1200 1220 / 2520 1300 / 2520 Output Total 200 / 650 350 / 800 450 / 800 Balance 40 / 550 870 / 1720 850 / 1720 Intake: Oral 240 / 1200 720 / 1020 300 / 1020 IV 500 / 1500 1000 / 1500 0.9 % Sodium Chloride 1,000 ml 1000 / 1000 @ 125 mls/hr IV .Q8H KITTY Rx#: [id number] 0.9 % Sodium Chloride 500 ml @ 500 / 500 500 mls/hr IV .Q1H ONE Rx#: [id number] Output: Urine 350 / 800 450 / 800 Urine Amount (Catheter) 200 / 200 Pure Wick 200 / 200 Other: # Incontinent Voids 1 Assessment and Plan Assessment and Plan (1) Vomiting: (2) Elevated troponin: (3) Chest pain: Plan #Elevated troponin -Low level elevation likely secondary to vomiting and her acute GI illness -She had a stress test in Jan, 2025 which was negative for ischemia on nuclear imaging along with EKG portion -Recommend continuing medical management with ASA, statin, BB #Chest pain #MCCLURE #Severe LVH -Sx's may be related to her severe LVH. -Recommend further work-up for HOCM as an outpatient given her acute GI illness. -Continue Toprol 50mg daily. Uptitrate if needed. Can consider addition of diltiazem if HR will tolerate. -Discontinue imdur as this can worsen sx's. #HTN -Currently controlled -Continue lisinopril, Toprol Discussed patient with cardiology attending Dr. Prieto and we are in agreement with this plan. Please call if any further questions or concerns. Pt to follow-up with cardiology in 2-4 weeks. Mansi Childress APRN-[facility] Cardiovascular Medicine
[2025-06-21] MEDS: TRAZODONE HCL 50 MG TABLET PO (21:22)
[2025-06-21] MEDS: OXYCODONE HCL 5 MG TABLET PO (22:04)
[2025-06-22] VITALS (8 sets, daily range): BP systolic 104–115; BP diastolic 65–80; PULSE 60–67; TEMP 36.3–36.6; O2SAT 96
[2025-06-22] MEDS: GABAPENTIN 300 MG CAPSULE PO (05:25)
[2025-06-22 06:16] LABS: Anion Gap 13.3; Blood Urea Nitrogen 35.0 mg/dL (7.0-18.0); Calcium 8.8 mg/dL (8.5-10.1); Carbon Dioxide 21.9 mmol/L (21.0-32.0); Chloride 107 mmol/L (98-107); Estimated GFR (African America 59 (>=60 mL/min/1.73m^2); Estimated GFR (Non-African Ame 48 (>=60 mL/min/1.73m^2); Glucose 241 mg/dL (74-106); Potassium 4.2 mmol/L (3.5-5.1); Sodium 138 mmol/L (136-145)
--- NOTE | 2025-06-22 08:50 | CM.NOTE ---
Dr. Lorenzo updated on pt's approval for skilled, pt will discharge today to [facility]. CRF completed and signed by Dr. Lorenzo. SW will notify facility and set up transport.
--- NOTE | 2025-06-22 08:51 | SWNOTE1 ---
FIORDALIZA received an email from Milla at [facility] and pt is approved for discharge. FIORDALIZA let case management know.
--- NOTE | 2025-06-22 08:53 | PM.DS1 ---
DS: Providers Provider Date of admission: 06/21/25 11:18 Primary care physician: Roby Sheldon MD Consults: 06/20/25 02:52 Consult to Cardiology Routine Reason for consultation: Chest pain, + trop 06/21/25 Occupational Therapy Eval and Treat Routine Reason for consultation: weakness Has provider been notified: Yes Physical Therapy Eval and Treat Routine Reason for consultation: weakness Has provider been notified: Yes DS: Diagnosis Discharge Diagnosis (1) Vomiting: (2) Elevated troponin: (3) Chest pain: Plan As listed above, below and others that are not listed DS: Summary Hospital Course Hospital Course: Mrs. Godoy is doing 69-year-old who came in with vomiting and chest discomfort. Chest pain, substernal. Resolved Chronic elevation of the troponin. Her troponin is positive. Patient has chronic elevation of the troponin. EKG does not show ST elevation or depression. No prior history of CAD or stenting. I do not suspect patient is having ACS . Patient had stress test 5 months ago which came back negative for ischemia. Patient had an echocardiogram 6 months ago which came back positive for hypertrophic left ventricle suspicious for hypertrophic obstructive cardiomyopathy Her chronic elevation of the troponin could be related to hypertrophic cardiomyopathy. Patient is on Imdur. Patient had received dose of Plavix and Lovenox. Continue aspirin. Avoid aggressive diuresis in the setting of possible hypertrophic cardiomyopathy. Avoid aggressive blood pressure management in the setting of possible hypertrophic cardiomyopathy. Continue beta-brady Toprol XL 25 mg daily. Added amlodipine 2.5 mg daily with holding parameters. Discontinue lisinopril and alpha-brady as may be these 2 agents could complicate hypertrophic hemodynamics. Cardiac consultation. Defer further needed diagnostic and therapeutic intervention related to her cardiovascular issues to cardiovascular disease. Patient was seen by cardiology team. Please refer to his note for details. Patient is to follow-up with the cardiology in the outpatient setting to complete needed investigation and treatment for suspected hypertrophic obstructive cardiomyopathy. Patient may need to have cardiac MRI, genetic testing and may be started on Camzyos. She may qualify for septal myectomy or other surgical procedures. Mild ROC in the borderline bradycardia Holding lisinopril and beta-brady IV fluid infusion to support her volume in the setting of possible hypertrophic cardiomyopathy Vomiting Improved since yesterday. CAT scan of the abdomen showed he had a hernia otherwise no acute intra-abdominal process. No fever or chills. No diarrhea to suggest enteritis. No acidosis. Normal LFTs. Normal lipase. Normal kidney function. Broad differential diagnosis including but not limited to gastritis, gastroparesis, side effect of medication such as GLP-1, SSRI SNRI combination others not listed Reduced the dose of SSRI and SNRI Complete resolution of her GI symptoms. Patient is tolerating her diet. Complete resolution of vomiting and abdominal tenderness Diabetes. Mild hyperglycemia. No DKA Resume long-acting and sliding scale coverage. I increased her Lantus dose for better control. Continue to titrate to keep blood sugar between 125 and 180. Hypertension Discontinue lisinopril. Discontinue alpha-brady. Continue beta-brady. Add small dose of calcium brady. Pending for cardiac evaluation recommendation. Chronic, subacute medical conditions not listed above, abnormal labs and imaging. These would need to be addressed. Could be addressed later on or in the outpatient setting by PCP collaboration with other needed outpatient providers when time and condition are appropriate. Functional impairment, no unilateral deficit. Patient was seen by PT OT team and recommended to go to skilled care for short period of time. Pre-CERT is approved. Patient will be discharged today. Patient has multiple complex medical issues as listed above and others that are not listed. All appear to be stable. I do not have any clear or strong clinical justification to extend inpatient hospitalization. Patient however will require close and frequent monitoring as well as additional work-up, investigation and therapeutic intervention that could take place from this point on post discharge. That is to prevent relapse, decompensation, rehospitalization and other medical implications.. I instructed patient to ask her primary care doctor to obtain [facility] record entirely to address abnormalities seen on labs and imaging that I have and have not addressed during this hospitalization, follow-up on pending blood work, imaging and pathology is if available and to follow-up on needed medical care in the outpatient setting. Time Spent with Patient Time attestation: Total time spent providing and/or coordinating discharge services: Exam Narrative Exam Narrative: [pt is awake and alert. oriented to place, time and person HEENT: [place] conjunctiva and NL buccal mucosa Neck: Supple, no tenderness Endocrine: No Thyromegaly. Vascular: No JVD or carotid bruit. Lymphatic: No cervical lymphadenopathy. Chest: CTA no DTP. Heart RRR, no extra sound or murmur. Abd: Soft, no tenderness in the abdomen, no rigidity no rebound and no rigidity. Increase abd girth therefore clinically I could not exclude the possibility of intra abd mass or organomegaly. LE: No cyanosis or clubbing, no varices or edema. Neuro: A A O. Nl speech, comprehension and attention. Nl and symetrical motor and tone examination through out. []] Constitutional Vital Signs, click to edit/add: Last Vital Signs Temp 97.8 F 06/22/25 07:39 Pulse 64 06/22/25 08:00 Resp 16 06/22/25 07:39 BP 115/65 06/22/25 07:39 Pulse Ox 96 06/22/25 07:39 O2 Del Method Room Air 06/22/25 07:39 DS: Data Data Completed and Pending Labs on day of discharge: Labs from last 24 hours 06/22/25 06/22/25 06/21/25 08:00 05:50 21:14 Sodium 138 Potassium 4.2 Chloride 107 Carbon Dioxide 21.9 Anion Gap 13.3 BUN 35.0 H Creatinine 1.11 H Est GFR ( Amer) 59 L Est GFR (Non-Af Amer) 48 L BUN/Creatinine Ratio 31.5 Glucose 241 H Calcium 8.8 POC Glucose 243 H 239 H 06/21/25 06/21/25 15:36 11:30 Sodium Potassium Chloride Carbon Dioxide Anion Gap BUN Creatinine Est GFR ( Amer) Est GFR (Non-Af Amer) BUN/Creatinine Ratio Glucose Calcium POC Glucose 345 H 386 H Discharge Plan Discharge Disposition: Xfer SNF Discharge Medications: New trazodone 50 mg Tablet 50 mg PO HS PRN (Reason: Sleep) Qty: 0 0RF sennosides-docusate sodium 8.6-50 mg Tablet 1 tab PO QD PRN (Reason: Constipation) Qty: 0 0RF bupropion HCl 100 mg Tablet Sustained-Release 12 Hr 100 mg PO QAM Qty: 0 0RF fluoxetine 10 mg Capsule 10 mg PO QD Qty: 0 0RF Glucagon Emergency Kit (human) 1 mg Recon Soln 1 mg IV Q15M PRN (Reason: Hypoglycemia) Qty: 0 0RF insulin aspart U-100 [Novolog FlexPen U-100 Insulin] 100 unit/mL (3 mL) Insulin Pen 3 - 15 unit subcut ACHS Qty: 0 0RF insulin glargine [Lantus Solostar U-100 Insulin] 100 unit/mL (3 mL) Insulin Pen 30 unit SQ QD Qty: 0 0RF Insta-Glucose (with dextrin) 24 gram/31 gram Gel 31 g PO Q15M PRN (Reason: Hypoglycemia) Qty: 0 0RF metoprolol succinate [Toprol XL] 25 mg tablet extended release 24 hr 25 mg PO DAILY Qty: 30 0RF amlodipine 2.5 mg tablet 2.5 mg PO DAILY Qty: 30 0RF Rx Instructions: Do not give, do not take if systolic blood pressure is less than 125 Continued atorvastatin 80 mg tablet 80 mg PO DAILY buspirone 15 mg tablet 15 mg PO BID dapagliflozin propanediol [Farxiga] 10 mg tablet 10 mg PO DAILY pantoprazole 40 mg tablet,delayed release (DR/EC) 40 mg PO DAILY gabapentin 300 mg capsule 300 mg PO TID aspirin 81 mg capsule 81 mg PO DAILY Qty: 30 11RF Discontinued insulin glargine [Lantus Solostar U-100 Insulin] 100 unit/mL (3 mL) insulin pen 30 unit SUBCUT BEDTIME metoprolol succinate 50 mg tablet extended release 24 hr 50 mg PO DAILY nitroglycerin 0.4 mg tablet, sublingual 0.4 mg sublingual Q5M PRN (Reason: chest pain) prazosin 2 mg capsule 2 mg PO .q hs insulin lispro 100 unit/mL insulin pen 10 unit SUBCUT TIDWM lisinopril 20 mg tablet 20 mg PO DAILY isosorbide mononitrate 30 mg Tablet Extended Release 24 Hr 60 mg PO BID bupropion HCl 200 mg tablet sustained-release 12 hr 200 mg PO QAM fluoxetine 60 mg tablet 60 mg PO DAILY Print Language: Arabic Activity Restrictions/Additional Instructions: I may not have addressed or treated all of your medical illnesses or the abnormal blood work or imaging studies during this hospitalization. Please ask your primary care provider to obtain [place] records entirely to follow up on all of the abnormal physical, laboratory, and imaging findings that I have not addressed. Please return back to the emergency room or seek medical attention if your symptoms worsen or return. For jail provider: Please monitor her blood pressure and heart rate closely. Please do not take amlodipine 2.5 mg if systolic blood pressure is less than 125. Please increase amlodipine up to 5 mg daily if systolic blood pressure is going higher than 150 BMP weekly for 3 Discharging you from [place] does not mean that your medical care ends here and now. You may still need additional monitoring, work up, investigation, and treatment plan to be handled from this point on by out patient providers including your primary care provider and specialists. For any medication question, please contact your retail pharmacist or your primary care provider. Thank you. 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
[2025-06-22] MEDS: INSULIN ASPART 300 UNIT/3 ML PEN SUBQ (08:54)
[2025-06-22] MEDS: INSULIN GLARGINE 300 UNIT/3 ML INSULN.PEN 30 UNIT SQ (08:55)
[2025-06-22] MEDS: ATORVASTATIN CALCIUM 40 MG TABLET 80 MG PO (08:57)
[2025-06-22] MEDS: ACETAMINOPHEN 325 MG TABLET 650 MG PO (08:57)
[2025-06-22] MEDS: BUSPIRONE HCL 10 MG TABLET 5 MG PO (08:57)
[2025-06-22] MEDS: PANTOPRAZOLE SODIUM 40 MG TABLET.DR PO (08:57)
[2025-06-22] MEDS: ASPIRIN 81 MG TABLET.DR PO (08:57)
[2025-06-22] MEDS: ISOSORBIDE MONONITRATE 30 MG TAB.ER.24H 60 MG PO (08:57)
[2025-06-22] MEDS: BUPROPION HCL 100 MG SR TABLET 12H PO (08:57)
[2025-06-22] MEDS: ENOXAPARIN SODIUM 40 MG/0.4 ML SYRINGE SUBQ (08:57)
[2025-06-22] MEDS: FLUOXETINE HCL 10 MG CAPSULE PO (08:57)
[2025-06-22] MEDS: SENNOSIDES/DOCUSATE SODIUM 1 TAB TABLET PO (08:57)
--- NOTE | 2025-06-22 09:39 | SWNOTE1 ---
Pt is stable for discharge today and she is approved to go skilled at [facility]. FIORDALIZA faxed dc med rec and dc summary to Milla at [facility]. FIORDALIZA took CRF out to nurse. FIORDALIZA called and set up trips for 10:30-11:00, wheelchair. FIORDALIZA notified pt, pt's nurse, and Milla at [facility] transport time. FIORDALIZA completed HENS 7000 online. FIORDALIZA took packet to the floor.
--- NOTE | 2025-06-22 10:26 | SWNOTE1 ---
SW stopped back in pt's room and pt's significant other was in room as well. FIORDALIZA did advise them both of the room number she will be going in to at [place]. FIORDALIZA did show significant other a map on SW phone of the location of the facility. He voiced he will be following the trips bus there. At this time, no further needs.
--- NOTE | 2025-06-22 10:38 | SWNOTE1 ---
SW faxed over cardiology consult to Milla at [facility], pt had discharged already and SW was not able to place in packet.
--- NOTE | 2025-06-22 18:27 | NUTR.NU ---
Diet education not accepted; pt was diagnosed ?years ago? w/DM, and she will follow therapeutic diet guidelines as ordered at SNF.
== END 2025-06-22 10:41 | DRG 315 ==
LOC: ER 23:59 → MS 06-20 13:48
PROVIDERS: Admitting Provider Internal Medicine; Emergency Provider Internal Medicine; PCP Family Medicine; Visit Provider Internal Medicine
DX: I42.2 Other hypertrophic cardiomyopathy (principal); N17.9 Acute kidney failure, unspecified; I11.9 Hypertensive heart disease without heart failure; R07.9 Chest pain, unspecified; E11.65 Type 2 diabetes mellitus with hyperglycemia; R79.89 Other specified abnormal findings of blood chemistry; R11.10 Vomiting, unspecified; Z90.710 Acquired absence of both cervix and uterus; Z87.440 Personal history of urinary (tract) infections; Z79.4 Long term (current) use of insulin; Z79.85 Long-term (current) use of injectable non-insulin antidiabetic drugs; Z79.899 Other long term (current) drug therapy; R00.1 Bradycardia, unspecified; E78.5 Hyperlipidemia, unspecified; Z91.81 History of falling; K44.9 Diaphragmatic hernia without obstruction or gangrene; Z79.82 Long term (current) use of aspirin
CPT/HCPCS: 36415; 71045; 74177; 80048; 80053; 80061; 82009; 82948; 83605; 83690; 83735; 84484; 85025; 85027; 93005; 96361; 96365; 96372; 96375; 96376; 97161; 97165; 97535; 99285; G0378; J0360; J1650; J2405; J2550; Q0162; Q9967